=== PATIENT | male | born 1965 | race Two or more races ===

== ENCOUNTER 2017-02-13 20:07 | Emergency (ER) | payer OTHER ==
[2017-02-13 20:24] VITALS: BP 105/67; PULSE 92; TEMP 98; BMI 27.4
--- NOTE | 2017-02-13 20:38 | PDOC ---
History of Present Illness - General Chief Complaint: Wound Stated Complaint: WOUND Time Seen by Provider: 02/13/17 20:26 History Source: Patient Past History - Past Medical History Allergies/Adverse Reactions: Allergies Allergy/AdvReac Type Severity Reaction Status Date / Time No Known Allergies Allergy Verified 02/13/17 20:15 Home Medications: Ambulatory Orders Amoxicillin/Potassium Clav [Augmentin 875-125 Tablet] 1 each PO BID #14 tablet 02/13/17 Metformin HCl [Glucophage] 1,000 mg PO BID 02/13/17 Metoprolol Succinate [Toprol Xl] 75 mg PO DAILY 02/13/17 COPD: No Diabetes: Yes - Suicide/Smoking/Psychosocial Hx Smoking History: Never smoked Hx Alcohol Use: No Drug/Substance Use Hx: No Substance Use Type: None Review of Systems - Review of Systems Able to Perform ROS?: Yes Comments:: 02/13/17 20:53 CONSTITUTIONAL: Absent: fever, chills, diaphoresis, generalized weakness, malaise, loss of appetite MUSCULOSKELETAL: Absent: myalgia, arthralgia, joint swelling SKIN: Absent: rash, itching, pallor HEMATOLOGIC/IMMUNOLOGIC: Absent: easy bleeding, easy bruising, lymphadenopathy, frequent infections ENDOCRINE: Absent: unexplained weight gain, unexplained weight loss, heat intolerance, cold intolerance left great toe/amputation to distal mt Left 1st mt head pain denies any erythema/drainage Is the patient limited Kazakh proficient: No *Physical Exam - Vital Signs Last Vital Signs Temp Pulse Resp BP Pulse Ox 98.0 F 92 H 20 105/67 100 02/13/17 20:16 02/13/17 20:16 02/13/17 20:16 02/13/17 20:16 02/13/17 20:16 - Physical Exam Comments: 02/13/17 20:53 GENERAL: Well developed, well nourished. Awake and alert. No acute distress. HEENT: Normocephalic, atraumatic. PERRLA, EOMI. No conjunctival pallor. Sclera are non- icteric. Moist mucous membranes. Oropharynx is clear. NECK: Supple. Full ROM. No JVD. Carotid pulses 2+ and symmetric, without bruits. No thyromegaly. No lymphadenopathy. CARDIOVASCULAR: Regular rate and rhythm. No murmurs, rubs, or gallops. Distal pulses are 2+ and symmetric. PULMONARY: No evidence of respiratory distress. Lungs clear to auscultation bilaterally. No wheezing, rales or rhonchi. MUSCULOSKELETAL Normal range of motion at all joints. No bony deformities or tenderness. No CVA tenderness. EXTREMITIES: No cyanosis. No clubbing. No edema. No calf tenderness. SKIN: Warm and dry. Normal capillary refill. No rashes. No jaundice. Left foot amputated great toe to mt head plantar distal mt head 2mm circular opening to plantar mt head neg erythema slight pain on palp to skin neg drainage neg pain on palp to foot 2+ pedal pulse ED Treatment Course - LABORATORY CBC & Chemistry Diagram: 02/13/17 21:10 02/13/17 21:10 *DC/Admit/Observation/Transfer Diagnosis at time of Disposition: Cellulitis Qualifiers: Site of cellulitis: extremity Site of cellulitis of extremity: toe Laterality: left Qualified Code(s): L03.032 - Cellulitis of left toe - Discharge Dispostion Disposition: HOME Condition at time of disposition: Stable Admit: No - Prescriptions Prescriptions: Amoxicillin/Potassium Clav [Augmentin 875-125 Tablet] 1 each PO BID #14 tablet - Referrals Referrals: Quinten Rodney MD [Staff Physician] - - Patient Instructions Printed Discharge Instructions: DI for Cellulitis -- Adult Additional Instructions: Elevate Rx: Augmentin 875mg take 1 tablet by mouth twice a day Follow up with Infectious disease/Dr. Starks Return to the ER for severe/persistent/worsening symptoms Print Language: SETSWA[place] - Post Discharge Activity
--- NOTE | 2017-02-13 20:40 | PDOC ---
*Physical Exam - Vital Signs Last Vital Signs Temp Pulse Resp BP Pulse Ox 98.0 F 92 H 20 105/67 100 02/13/17 20:16 02/13/17 20:16 02/13/17 20:16 02/13/17 20:16 02/13/17 20:16 Medical Decision Making - Medical Decision Making 02/13/17 20:40 Pt seen by the Advanced Practice Provider under my direct supervision Ancillary studies reviewed I agree with plan as outlined by the Advanced Practice Provider ZOE Ellis
[2017-02-13 21:20] LABS: BASOPHIL 0.5 % (0-2.0); EOSINOPHIL 1.6 % (0-4.5); MCH 31.2 pg (25.7-33.7); MCHC 34.7 g/dl (32.0-35.9); MEAN CELL VOLUME 90.1 fl (80-96); MEAN PLT VOLUME 9.9 fl (7.5-11.1); NEUTROPHILS 61.5 % (42.8-82.8); PLATELET COUNT 168 K/MM3 (134-434); WHITE BLOOD COUNT 7.6 K/mm3 (4.0-10.0)
[2017-02-13 22:08] LABS: ANION GAP 7 (8-16); CALCIUM 8.2 mg/dL (8.5-10.1); CO2 24 mmol/L (21-32); CREATININE 0.9 mg/dL (0.7-1.3); GLUCOSE,RANDOM 170 mg/dL (74-106); SGOT/AST 19 U/L (15-37); SGPT/ALT 28 U/L (12-78)
[2017-02-13 22:10] LABS: ALK PHOS 156 U/L (45-117); BILIRUBIN,TOTAL 0.5 mg/dL (0.2-1.0); TOT PROT 7.6 g/dl (6.4-8.2)
[2017-02-13 22:21] LABS: C-REACTIVE PROTEIN < 0.3 MG/DL (0.00-0.3)
[2017-02-13 22:26] LABS: ERYTHROCYTE SEDIMENTATION RATE 17 mm/hr (0-20)
[2017-02-13] MEDS ORDERED: LEVOFLOXACIN 750 MG TABLET PO SCH (23:45)
[2017-02-13] MEDS ORDERED: AMOX TR/POT CLAV 875MG/125MG TABLETS (FP) PO ONE (23:49)
[2017-02-13] MEDS ORDERED: AMOX TR/POT CLAV 875MG/125MG TABLETS (FP) ONE (23:56)
[2017-02-13] MEDS ORDERED: LEVOFLOXACIN 250 MG TABLET (FP) ONE (23:57)
[2017-02-13] MEDS ORDERED: LEVOFLOXACIN 500 MG TABLET (FP) ONE (23:57)
--- NOTE | 2017-02-16 07:43 | PDOC ---
Patient Follow-up (Call Back) - Post ED Follow - Up Condition at time of discharge: Stable Disposition at time of original discharge: HOME Reason for Call Back: Abnwl. Microbiology (Wound cx showed on preliminary strep groub, non lactose fermenting GNB, and strep viridans. Pt was placed on Augmentin upon ED discharge. Will await final.)
== END 2017-02-14 | disposition home or self-care (01) ==
LOC: JER 20:07
DX: E11.9 Type 2 diabetes mellitus without complications (principal); L03.032 Cellulitis of left toe; Z89.412 Acquired absence of left great toe; Z79.4 Long term (current) use of insulin
CPT/HCPCS: 36415; 73630-TC-LT; 80053; 85025; 85651; 86140; 87070; 87186; 87205; 99282-25

== ENCOUNTER 2017-03-10 17:05 | Inpatient (IN) | payer OTHER ==
[2017-03-10 17:12] VITALS: BMI 29.7
--- NOTE | 2017-03-10 17:14 | PDOC ---
Rapid Medical Evaluation Chief Complaint: Wound Infection Medical Evaluation: Allergies Allergy/AdvReac Type Severity Reaction Status Date / Time No Known Allergies Allergy Verified 02/13/17 20:15 03/10/17 17:11 Pt seen and examed in triage. He ambulating in to waiting room He presents with c/o left foot pain/wound fo the past 4 days. He is a diabetic and with chronic wounds but now a new blister opened. Need to order the following -labs -blood cx -left foot xray -duplex -ekg -dispo for admission possible Discharge Disposition - Diagnosis Wound infection - Referrals - Patient Instructions - Post Discharge Activity
[2017-03-10 17:35] LABS: BASO % 0.9 % (0-2.0); MCH 31.5 pg (25.7-33.7); MCHC 34.9 g/dl (32.0-35.9); MEAN CELL VOLUME 90.3 fl (80-96); MEAN PLT VOLUME 9.8 fl (7.5-11.1); NEUT % 64.8 % (42.8-82.8); PLATELET COUNT 171 K/MM3 (134-434); RDW 13.6 % (11.9-15.9); WHITE BLOOD COUNT 5.3 K/mm3 (4.0-10.0)
[2017-03-10 17:51] LABS: INR 1.96 (0.82-1.09); PROTHROMBIN TIME (PATIENT) 22.1 SEC (9.98-11.88)
--- NOTE | 2017-03-10 17:54 | PDOC ---
History of Present Illness <Raiza Aquino - Last Filed: 03/10/17 21:47> - General History Source: Patient - History of Present Illness Initial Comments: 03/10/17 17:52 51yo man with NIDDM with multiple toe amputations who presents with 5 days of worsening L great toe blister. Denies pain, fever, chills, n/v. He was last here 02/13 for cellulitis and placed on Augmentin. Wound culture grew Serratia, Strep agalactiae, and strep viridans. <Juliana Gerber - Last Filed: 03/10/17 23:45> - General Chief Complaint: Wound Infection Stated Complaint: WOUND Time Seen by Provider: 03/10/17 17:31 Past History <Raiza Aquino - Last Filed: 03/10/17 21:47> - Past Medical History COPD: No Diabetes: Yes - Suicide/Smoking/Psychosocial Hx Smoking History: Never smoked Hx Alcohol Use: No Drug/Substance Use Hx: No Substance Use Type: None <Juliana Gerber - Last Filed: 03/10/17 23:45> - Past Medical History Allergies/Adverse Reactions: Allergies Allergy/AdvReac Type Severity Reaction Status Date / Time No Known Allergies Allergy Verified 03/10/17 17:12 Home Medications: Ambulatory Orders Metformin HCl [Glucophage] 1,000 mg PO BID 02/13/17 Metoprolol Succinate [Toprol Xl] 50 mg PO DAILY 03/10/17 Warfarin Sodium 1 mg PO DAILY 03/10/17 Warfarin Sodium 2 mg PO DAILY 03/10/17 *Physical Exam - Vital Signs Last Vital Signs Temp Pulse Resp BP Pulse Ox 98.1 F 89 16 108/70 98 03/10/17 20:59 03/10/17 20:59 03/10/17 20:59 03/10/17 20:59 03/10/17 20:59 <Raiza Aquino - Last Filed: 03/10/17 21:47> - Vital Signs Last Vital Signs Temp Pulse Resp BP Pulse Ox 97.9 F 107 H 20 112/70 100 03/10/17 17:08 03/10/17 17:08 03/10/17 17:08 03/10/17 17:08 03/10/17 17:08 - Physical Exam General Appearance: Yes: Nourished, Appropriately Dressed HEENT: positive: Normal ENT Inspection Neck: positive: Supple Respiratory/Chest: positive: Lungs Clear, Normal Breath Sounds Cardiovascular: positive: Regular Rhythm, Regular Rate, S1, S2 Vascular Pulses: Dorsalis-Pedis (R): 2+, Doralis-Pedis (L): 2+ Gastrointestinal/Abdominal: positive: Normal Bowel Sounds, Soft. negative: Tenderness Extremity: positive: Other (L great toe distal phalanx amputation with posterior pad ulcer, 3rd toe with circumferential ulcer, malodorous with mild tenderness, L 4th toe amputation; R 2nd toe amputation) Integumentary: positive: Normal Color Neurologic: positive: Fully Oriented, Alert <Juliana Gerber - Last Filed: 03/10/17 23:45> ED Treatment Course - LABORATORY CBC & Chemistry Diagram: 03/10/17 17:21 03/10/17 17:21 - ADDITIONAL ORDERS Additional order review: Laboratory Results 03/10/17 03/10/17 03/10/17 18:40 17:21 17:21 PT with INR 22.10 H INR 1.96 H Sodium 139 Potassium 4.2 Chloride 103 Carbon Dioxide 26 Anion Gap 10 BUN 17 D Creatinine 0.7 D Creat Clearance w eGFR > 60 Random Glucose 113 H D Calcium 9.2 Total Bilirubin 0.4 AST 17 ALT 25 Alkaline Phosphatase 158 H Total Protein 7.7 Albumin 4.1 Urine Color Cancelled Urine Appearance Cancelled Urine pH Cancelled Ur Specific [place] Cancelled Urine Protein Cancelled Urine Glucose (UA) Cancelled Urine Ketones Cancelled Urine Blood Cancelled Urine Nitrite Cancelled Urine Bilirubin Cancelled Urine Urobilinogen Cancelled Ur Leukocyte Esterase Cancelled 03/10/17 17:14 PT with INR INR Sodium Potassium Chloride Carbon Dioxide Anion Gap BUN Creatinine Creat Clearance w eGFR Random Glucose Calcium Total Bilirubin AST ALT Alkaline Phosphatase Total Protein Albumin Urine Color Ltyellow Urine Appearance Clear Urine pH 6.0 Ur Specific [place] 1.015 Urine Protein Negative Urine Glucose (UA) Negative Urine Ketones Negative Urine Blood Negative Urine Nitrite Negative Urine Bilirubin Negative Urine Urobilinogen Negative Ur Leukocyte Esterase 03/10/17 17:21 RBC 4.28 MCV 90.3 MCHC 34.9 RDW 13.6 MPV 9.8 Neutrophils % 64.8 Lymphocytes % 24.5 Monocytes % 7.8 Eosinophils % 2.0 Basophils % 0.9 <Raiza Aquino - Last Filed: 03/10/17 21:47> - LABORATORY CBC & Chemistry Diagram: 03/10/17 17:21 03/10/17 17:21 - ADDITIONAL ORDERS Additional order review: 03/10/17 17:21 RBC 4.28 MCV 90.3 MCHC 34.9 RDW 13.6 MPV 9.8 Neutrophils % 64.8 Lymphocytes % 24.5 Monocytes % 7.8 Eosinophils % 2.0 Basophils % 0.9 - RADIOLOGY Radiology Studies Ordered: Category Date Time Status FOOT-LEFT [RAD] Stat Radiology 03/10/17 17:51 Ordered <Juliana Gerber - Last Filed: 03/10/17 23:45> Medical Decision Making - Medical Decision Making 51yo man with NIDDM with 3 toe amputations who presents with malodorous ulcers on L great toe posterior pad and circumferential ulcer on L 3rd toe. Patient tachycardic on admission, however afebrile and without leukocytosis. Blood and would cultures are still pending. L foot XRAY is not reveal any soft tissue free air or gross signs of osteomyelitis, which is reassuring. Given history of amputations, will admission for observation to be evaluated by wound care/podiatry. <Juliana Gerber - Last Filed: 03/10/17 23:45> *DC/Admit/Observation/Transfer - Discharge Dispostion Admit: Yes <Raiza Aquino - Last Filed: 03/10/17 21:47> <Juliana Gerber - Last Filed: 03/10/17 23:45> Diagnosis at time of Disposition: Wound infection, Foot ulcer
[2017-03-10 18:02] LABS: ALBUMIN 4.1 g/dl (3.4-5.0); ALK PHOS 158 U/L (45-117); ANION GAP 10 (8-16); BILIRUBIN,TOTAL 0.4 mg/dL (0.2-1.0); CALCIUM 9.2 mg/dL (8.5-10.1); CO2 26 mmol/L (21-32); CREATININE 0.7 mg/dL (0.7-1.3); GLUCOSE,RANDOM 113 mg/dL (74-106); SGOT/AST 17 U/L (15-37); SGPT/ALT 25 U/L (12-78); TOT PROT 7.7 g/dl (6.4-8.2)
[2017-03-10 19:19] LABS: URINE APPEARANCE CLEAR; URINE BILIRUBIN NEGATIVE (NEGATIVE); URINE BLOOD NEGATIVE (NEGATIVE); URINE COLOR LTYELLOW; URINE GLUCOSE (UA) NEGATIVE (NEGATIVE); URINE KETONE NEGATIVE (NEGATIVE); URINE LEUK ESTERASE NEGATIVE (NEGATIVE); URINE NITRITE NEGATIVE (NEGATIVE); URINE PROTEIN NEGATIVE (NEGATIVE); URINE UROBILINOGEN NEGATIVE mg/dL (0.2-1.0)
[2017-03-10] MEDS ORDERED: CLINDAMYCIN 900 MG PREMIX IVPB 900 MG/50 ML BAG IVPB ONE (23:38)
--- NOTE | 2017-03-10 23:42 | PDOC ---
Attending Attestation - Resident Resident Name: Juliana Gerber - ED Attending Attestation I have performed the following: I have examined & evaluated the patient, The case was reviewed & discussed with the resident, I agree w/resident's findings & plan, Exceptions are as noted - HPI HPI: 51-year-old male diabetic here with complaints of a left foot ulcer. Patient has been seen in the past has prior amputations of the toes is followed by Dr. Tanmay Seals as well as the [facility] was seen yesterday and told to come in for an infected foot ulcer. Here today complaining of pain and swelling in the left foot has an ulcer on his left fourth toe as well as a great toe ulcer at the base of the great toe has noticed a foul order denies drainage no fever or chills does notice foot swelling and warmth 03/10/17 23:39 - Physicial Exam PE: 03/10/17 23:40 Awake alert no acute distress heart exam is normal no murmurs rubs or gallops. Lungs are clear bilaterally no wheezes no crackles. Abdomen is soft and nontender extremities are warm and well perfused left foot is noted for mild warmth and erythema to the level ankle. Noted prior toe amputations. Left great toe has a plantar surface blister with underlying exudate. The left fourth toe has a pink-based ulcer does have a foul odor. Erythema and warmth noted to the dorsum of the left foot no crepitus 2+ DP pulses - Medical Decision Making 03/10/17 23:42 51-year-old male with infected left foot ulcer and foot cellulitis with diabetes. Plan IV antibiotics x-ray to rule out osteomyelitis patient may require eval by prior infectious disease Dr. Reynolds,
--- NOTE | 2017-03-11 04:50 | HP ---
CHIEF COMPLAINT: blister on toe PCP: clinic in [facility] HISTORY OF PRESENT ILLNESS: This is a 51 year old male with a past medical history of DM who presented to the ED with a "blister" on his toe. He was seen in ED for a wound to his left 1st toe 1 month ago and treated with augmentin. He followed up with IDDr. Rodney as an outpatient. He is concerned that now he has a blister on his 3rd toe. He is concerned that these keep happening. He reports minimal pain to the site. Pt states he noted pus coming from it this morning. Denies other complaints. 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 Smoking: pt denies Alcohol: pt denies Drugs: pt denies Family History: mother in her 50s, unk cause, was in [place] father alive and well brother in his 40s, had DM denies any h/o cardiac disease in the family Allergies No Known Allergies Allergy (Verified 03/10/17 17:12) HOME MEDICATIONS: 3 Medication Instructions Recorded Metformin HCl [Glucophage] 1,000 mg PO BID 02/13/17 Metoprolol Succinate [Toprol Xl] 50 mg PO DAILY 03/10/17 Warfarin Sodium 1 mg PO DAILY 03/10/17 Warfarin Sodium 2 mg PO DAILY 03/10/17 REVIEW OF SYSTEMS CONSTITUTIONAL: Absent: fever, chills, diaphoresis, generalized weakness, malaise, loss of appetite, weight change HEENT: Absent: rhinorrhea, nasal congestion, throat pain, throat swelling, difficulty swallowing, mouth swelling, ear pain, eye pain, visual changes CARDIOVASCULAR: Absent: chest pain, syncope, palpitations, irregular heart rate, lightheadedness , peripheral edema RESPIRATORY: Absent: cough, shortness of breath, dyspnea with exertion, orthopnea, wheezing, stridor, hemoptysis GASTROINTESTINAL: Absent: abdominal pain, abdominal distension, nausea, vomiting, diarrhea, constipation, melena, hematochezia GENITOURINARY: Absent: dysuria, frequency, urgency, hesitancy, hematuria, flank pain, genital pain MUSCULOSKELETAL: Absent: myalgia, arthralgia, joint swelling, back pain, neck pain SKIN: wound to L 3rd toe Absent: rash, itching, pallor HEMATOLOGIC/IMMUNOLOGIC: Absent: easy bleeding, easy bruising, lymphadenopathy, frequent infections ENDOCRINE: Absent: unexplained weight gain, unexplained weight loss, heat intolerance, cold intolerance NEUROLOGIC: Absent: headache, focal weakness or paresthesias, dizziness, unsteady gait, seizure, mental status changes, bladder or bowel incontinence PSYCHIATRIC: Absent: anxiety, depression, suicidal or homicidal ideation, hallucinations. PHYSICAL EXAMINATION Vital Signs - 24 hr 3 03/10/17 03/10/17 03/10/17 17:08 20:59 22:25 Temperature 97.9 F 98.1 F Pulse Rate 107 H Pulse Rate [ 89 72 Apical] Respiratory 20 16 16 Rate Blood Pressure 112/70 Blood Pressure 108/70 120/70 [Right Arm] O2 Sat by Pulse 100 98 99 Oximetry (%) 3 03/11/17 03/11/17 00:35 01:35 Temperature 98.9 F Pulse Rate 78 Pulse Rate [ Apical] Respiratory 18 Rate Blood Pressure 125/75 Blood Pressure [Right Arm] O2 Sat by Pulse 99 Oximetry (%) GENERAL: Awake, alert, and fully oriented, in no acute distress. HEAD: Normal with no signs of trauma. EYES: Pupils equal, round and reactive to light, extraocular movements intact, sclera anicteric, conjunctiva clear. No lid lag. EARS, NOSE, THROAT: Ears normal, nares patent, oropharynx clear without exudates. Moist mucous membranes. NECK: Normal range of motion, supple without lymphadenopathy, JVD, or masses. LUNGS: Breath sounds equal, clear to auscultation bilaterally. No wheezes, and no crackles. No accessory muscle use. HEART: Regular rate and rhythm, normal S1 and S2 without murmur, rub or gallop. ABDOMEN: Soft, nontender, not distended, normoactive bowel sounds, no guarding, no rebound, no masses. No hepatomegaly or splenomegaly. MUSCULOSKELETAL: Normal range of motion at all joints. No bony deformities or tenderness. No CVA tenderness. UPPER EXTREMITIES: 2+ pulses, warm, well-perfused. No cyanosis. No clubbing. No peripheral edema. LOWER EXTREMITIES: 2+ pulses, warm, well-perfused. No calf tenderness. No peripheral edema. L 4th toe amputation site healed well, 1st toe with old blister, whitish discoloration to plantar aspect, no discharge, no redness. 3rd toe with ulceration to lateral aspect, wound bed beefy red, dry, no discharge, surrounding skin WNL. No erythema noted to foot. NEUROLOGICAL: Cranial nerves II-XII intact. Normal speech. Normal gait. PSYCHIATRIC: Cooperative. Good eye contact. Appropriate mood and affect. SKIN: Warm, dry, normal turgor, no rashes or lesions noted, normal capillary refill. Laboratory Results - last 24 hr 3 03/10/17 03/10/17 03/10/17 17:14 17:21 17:21 WBC 5.3 D RBC 4.28 Hgb 13.5 Hct 38.6 MCV 90.3 MCH 31.5 MCHC 34.9 RDW 13.6 Plt Count 171 MPV 9.8 Neutrophils % 64.8 Lymphocytes % 24.5 Monocytes % 7.8 Eosinophils % 2.0 Basophils % 0.9 PT with INR 22.10 H INR 1.96 H Sodium Potassium Chloride Carbon Dioxide Anion Gap BUN Creatinine Creat Clearance w eGFR Random Glucose Calcium Total Bilirubin AST ALT Alkaline Phosphatase Total Protein Albumin Urine Color Ltyellow Urine Appearance Clear Urine pH 6.0 Ur Specific [place] 1.015 Urine Protein Negative Urine Glucose (UA) Negative Urine Ketones Negative Urine Blood Negative Urine Nitrite Negative Urine Bilirubin Negative Urine Urobilinogen Negative Ur Leukocyte Esterase 3 03/10/17 03/10/17 17:21 18:40 WBC RBC Hgb Hct MCV MCH MCHC RDW Plt Count MPV Neutrophils % Lymphocytes % Monocytes % Eosinophils % Basophils % PT with INR INR Sodium 139 Potassium 4.2 Chloride 103 Carbon Dioxide 26 Anion Gap 10 BUN 17 D Creatinine 0.7 D Creat Clearance w eGFR > 60 Random Glucose 113 H D Calcium 9.2 Total Bilirubin 0.4 AST 17 ALT 25 Alkaline Phosphatase 158 H Total Protein 7.7 Albumin 4.1 Urine Color Cancelled Urine Appearance Cancelled Urine pH Cancelled Ur Specific [place] Cancelled Urine Protein Cancelled Urine Glucose (UA) Cancelled Urine Ketones Cancelled Urine Blood Cancelled Urine Nitrite Cancelled Urine Bilirubin Cancelled Urine Urobilinogen Cancelled Ur Leukocyte Esterase Cancelled Radiology Results X-ray of the left foot, 3 views. Amputation of the first distal phalanx and amputation of the fourth toe again noted. The alignment is satisfactory without gross evidence of focal bone destruction or periosteal elevation. No gross soft tissue swelling or air is identified. Note is made of a tiny plantar calcaneus spur. Vascular calcifications are present Impression: See discussion above. Site of diabetic ulcer is not seen. No gross bone destruction or periosteal elevation identified. No gross soft tissue air is seen. Correlate clinically to determine further evaluation. Reported By: Glory Riddle MD 03/10/17 1920 ASSESSMENT/PLAN: 51yM with PMH DM, HTN presented to the ED with left foot ulcer, diabetic. Diabetic foot ulcer - clindamycin given in ED - ID consult for further ABT choice. - podiatry consult HTN - cont home toprol - pt is on coumadin, unclear why. Pt states it is because he has "poor blood movement" rhythm regular on exam, ? PAF, will obtain ECG in am DVT PPX - chemoprophylaxis is deferred as anticipated LOS <48h FEN - pt tolerating po - BMP in am - diabetic / low sodium diet as tolerated Dispo: pt currently requires further observation for management of his emergent condition. Visit type - Emergency Visit Emergency Visit: Yes ED Registration Date: 03/10/17 Care time: The patient presented to the Emergency Department on the above date and was hospitalized for further evaluation of their emergent condition. - New Patient This patient is new to me today: Yes Date on this admission: 03/11/17 - Critical Care Critical Care patient: No
[2017-03-11 07:26] LABS: BASO % 0.4 % (0-2.0); EOS % 2.3 % (0-4.5); MCHC 34.4 g/dl (32.0-35.9); NEUT % 60.8 % (42.8-82.8); PLATELET COUNT 159 K/MM3 (134-434); RDW 13.7 % (11.9-15.9)
[2017-03-11 07:52] LABS: INR 2.02 (0.82-1.09); PROTHROMBIN TIME (PATIENT) 22.8 SEC (9.98-11.88)
[2017-03-11 07:54] LABS: ANION GAP 6 (8-16); CALCIUM 8.2 mg/dL (8.5-10.1); CO2 26 mmol/L (21-32); CREATININE 0.7 mg/dL (0.7-1.3); GLUCOSE,RANDOM 142 mg/dL (74-106); MAGNESIUM 1.2 mg/dL (1.8-2.4); PHOSPHOROUS 3.3 mg/dL (2.5-4.9)
[2017-03-11] MEDS ORDERED: MAGNESIUM SULF 50% (8.12 MEQ/2 ML-1 GM VIAL) IVPB ONE (08:45)
[2017-03-11] MEDS ORDERED: WARFARIN NA 1 MG TABLET (FP) PO SCH (10:00)
[2017-03-11] MEDS ORDERED: WARFARIN NA 2 MG TABLET (UD) PO SCH (10:00)
[2017-03-11] MEDS: METOPROLOL SUCCINATE 50 MG TAB.SR.24H (FP) PO SCH (10:45)
--- NOTE | 2017-03-11 12:36 | CONSULT ---
Consult - text type - Consultation Consultation Note: Podiatry Consult: 51 year old DM M, well known to me, presents with L great toe amputation stump ulcer x few weeks. Patient is s/p L great toe partial amputation and L 4th digit amputation for infections in [facility] in October and November. Denies F/V/N /C/SOB/CP. Afebrile, VSS. WILLIAM: L foot: palpable DP 1/4, non-palpable PT pulse, TG wnl. Plantar hallux stump diabetic ulcer with granular base, (+) superficial purulence, no fluctuance, no soft tissue crepitus, no ascending cellulitis, no signs of active infection. 3rd digit superficial ulcer, granular and stable. L foot XR: no evidence of osteomyelitis WBC: 5.0 Blood Cx: pending Wound Cx: pending Imp: 51 year old DM M with L plantar hallux stump DM ulcer 1. IV abx 2. ID consultation 3. Bactroban + DSD to L foot daily 4. Recommend MRI L foot to evaluate for residual osteomyelitis 5. With appropriate ofloading measures should be able to heal plantar hallux stump ulcer 6. Glycemic control 7. Recommend PVRs, ordered 8. Thanks for the courtesy of the consult. Jimmie Alvarado DPM
--- NOTE | 2017-03-11 15:25 | EKG ---
Test Reason : Blood Pressure : / mmHG Vent. Rate : 090 BPM Atrial Rate : 220 BPM P-R Int : 000 ms QRS Dur : 084 ms QT Int : 338 ms P-R-T Axes : 000 -19 -08 degrees QTc Int : 413 ms ATRIAL FIBRILLATION ABNORMAL ECG NO PREVIOUS ECGS AVAILABLE Confirmed by STEPHANIE FERREIRA MD ([id number]) on 03/11/2017 3:25:21 PM Referred By: Confirmed By:STEPHANIE FERREIRA MD
--- NOTE | 2017-03-11 15:41 | PN ---
Progress Note (short form) - Note Progress Note: Vascular Surgery Pt seen and examined. Left foot with hx of amputation of toe. Now has ulcer on second toe medially and laterally. Pt lost tip of great toe as well. Pt with palpable DP pulse. REcc MRI of left foot to rule out osteo. Needs good foot care , as per podiatry. With history of DM, and elevated HbA1c, pt is a candidate for HBO as outpt. Will follow Brennan fuentes DO
--- NOTE | 2017-03-11 18:07 | CON.ID ---
Consult Consult Specialty:: Infectious Disease - History of Present Illness History of Present Illness: 51 y.o. male with PMH of DM, Lt 1st toe partial amputation and Lt 4th toe amputation due to infection presenting with 1st toe stump ulcer for the past few weeks and purulent drainage noted for the past 4 days. Pt denies any fever/ chills, pain or swelling around the wound. Has no other specific complaints. - History Source History Provided By: Patient - Past Medical History Endocrine: Yes: Diabetes Mellitus - Past Surgical History Past Surgical History: Yes: Amputation (Lt 1st toe partial amputation, Lt 4th toe amputation) - Alcohol/Substance Use Hx Alcohol Use: No - Smoking History Smoking history: Never smoked Have you smoked in the past 12 months: No Home Medications - Allergies Allergies/Adverse Reactions: Allergies Allergy/AdvReac Type Severity Reaction Status Date / Time No Known Allergies Allergy Verified 03/10/17 17:12 - Home Medications Home Medications: Ambulatory Orders Metformin HCl [Glucophage] 1,000 mg PO BID 02/13/17 Metoprolol Succinate [Toprol Xl] 50 mg PO DAILY 03/10/17 Warfarin Sodium 1 mg PO DAILY 03/10/17 Warfarin Sodium 2 mg PO DAILY 03/10/17 Review of Systems - Review of Systems Constitutional: reports: No Symptoms HENT: reports: No Symptoms Neck: reports: No Symptoms Cardiovascular: reports: No Symptoms Respiratory: reports: No Symptoms Gastrointestinal: reports: No Symptoms Genitourinary: reports: No Symptoms Breasts: reports: No Symptoms Reported Musculoskeletal: reports: No Symptoms Integumentary: reports: Other (Lt 1st toe stump drainage) Neurological: reports: No Symptoms Endocrine: reports: No Symptoms Hematology/Lymphatic: reports: No Symptoms Psychiatric: reports: No Symptoms Physical Exam Vital Signs: Vital Signs Temperature 98.4 F 03/11/17 10:00 Pulse Rate 105 H 03/11/17 10:00 Respiratory Rate 18 03/11/17 10:00 Blood Pressure 106/68 03/11/17 10:00 O2 Sat by Pulse Oximetry (%) 99 03/11/17 01:35 Constitutional: Yes: No Distress, Calm HENT: Yes: Atraumatic Neck: Yes: Supple Cardiovascular: Yes: Regular Rate and Rhythm Respiratory: Yes: CTA Bilaterally Gastrointestinal: Yes: Normal Bowel Sounds, Soft Renal/: Yes: WNL Musculoskeletal: Yes: Other Extremities: Yes: Amputation (Lt 1st toe partial amp, stump without current purulence, no erythema/tenderness Lt 4th toe amp site healed Lt 3rd toe necrotic patch, no drainage/tenderness) Peripheral Pulses WNL: No (faint DP pulse on Lt) Integumentary: Yes: WNL Neurological: Yes: Alert Psychiatric: Yes: Alert Labs: CBC, BMP 03/11/17 06:30 03/11/17 06:30 Problem List - Problems (1) Foot ulcer Code(s): L97.509 - NON-PRESSURE CHRONIC ULCER OTH PRT UNSP FOOT W UNSP SEVERITY (2) Wound infection Code(s): T14.8XXA - OTHER INJURY OF UNSPECIFIED BODY REGION, INITIAL ENCOUNTER; L08.9 - LOCAL INFECTION OF THE SKIN AND SUBCUTANEOUS TISSUE, UNSP Assessment/Plan 51 y.o. male with DM, Lt 1st toe partial amputation and Lt 4th toe amputation presenting with c/o mild purulent drainage from Lt 1st toe stump site. No edema/ erythema/tenderness. Pt afebrile, without leukocytosis. - f/u wound culture isolate - order esr/crp - MRI - started empirically on Clindamycin Podiatry f/u will f/u
[2017-03-11] MEDS: CLINDAMYCIN 600MG PREMIX IVPB 600 MG/50 ML BAG IVPB SCH (19:34)
[2017-03-11] MEDS: WARFARIN NA 3 MG TABLET PO SCH (19:34)
[2017-03-11] MEDS ORDERED: INSULIN (NOVOLOG) ASPART 100 UNITS/ML 10ML VIAL ONE (21:31)
[2017-03-11] MEDS: INSULIN SLIDING SCALE (NOVOLOG) 1 VIAL SQ SCH (22:20)
[2017-03-12] MEDS: CLINDAMYCIN 600MG PREMIX IVPB 600 MG/50 ML BAG IVPB SCH ×3 (01:36→17:04)
[2017-03-12] MEDS: INSULIN SLIDING SCALE (NOVOLOG) 1 VIAL SQ SCH ×4 (06:16→22:26)
[2017-03-12] MEDS ORDERED: PT OWN MED DRAWER 7, Y5N ONE ×3 (06:45→18:51)
[2017-03-12 07:53] LABS: BASO % 0.6 % (0-2.0); EOS % 2.1 % (0-4.5); MCH 31.1 pg (25.7-33.7); MEAN CELL VOLUME 88.8 fl (80-96); MEAN PLT VOLUME 9.7 fl (7.5-11.1); NEUT % 59.3 % (42.8-82.8); PLATELET COUNT 155 K/MM3 (134-434); RDW 13.2 % (11.9-15.9); WHITE BLOOD COUNT 4.4 K/mm3 (4.0-10.0)
[2017-03-12 08:33] LABS: INR 2.06 (0.82-1.09); PROTHROMBIN TIME (PATIENT) 23.3 SEC (9.98-11.88)
[2017-03-12 08:52] LABS: ANION GAP 8 (8-16); CALCIUM 8.5 mg/dL (8.5-10.1); CO2 27 mmol/L (21-32); CREATININE 0.8 mg/dL (0.7-1.3); GLUCOSE,RANDOM 208 mg/dL (74-106)
[2017-03-12] MEDS: METOPROLOL SUCCINATE 50 MG TAB.SR.24H (FP) PO SCH (10:13)
[2017-03-12] MEDS ORDERED: INSULIN (NOVOLOG) ASPART 100 UNITS/ML 10ML VIAL ONE ×2 (11:25→18:52)
[2017-03-12] MEDS: MUPIROCIN 2% TOPICAL OINTMENT 22 GM TUBE TP SCH (11:28)
--- NOTE | 2017-03-12 12:07 | PN ---
Progress Note, Physician History of Present Illness: Pt remains stable. No new complaints. - Current Medication List Current Medications: Active Medications Clindamycin Phosphate (Cleocin 600 Mg Premix Ivpb -) 600 mg in 50 mls @ 100 mls /hr IVPB Q8H-IV [facility] Last Admin: 03/12/17 10:12 Dose: 100 mls/hr Insulin Aspart (Novolog Vial Sliding Scale -) 1 vial SQ ACHS [facility] PRN Reason: Protocol Last Admin: 03/12/17 11:27 Dose: 4 units Metoprolol Succinate (Toprol Xl -) 50 mg PO DAILY [facility] Last Admin: 03/12/17 10:13 Dose: 50 mg Mupirocin (Bactroban 2% Ointment -) 1 applic TP DAILY [facility] Last Admin: 03/12/17 11:28 Dose: 1 applic Warfarin Sodium (Coumadin -) 3 mg PO DAILY@1800 [facility] Last Admin: 03/11/17 19:34 Dose: 3 mg - Objective Vital Signs: Vital Signs Temperature 97.6 F 03/12/17 06:00 Pulse Rate 91 H 03/12/17 06:00 Respiratory Rate 18 03/12/17 06:00 Blood Pressure 112/70 03/12/17 06:00 O2 Sat by Pulse Oximetry (%) 99 03/11/17 18:00 Constitutional: Yes: No Distress, Calm Neck: Yes: Supple Cardiovascular: Yes: Regular Rate and Rhythm Respiratory: Yes: CTA Bilaterally Gastrointestinal: Yes: Normal Bowel Sounds, Soft Extremities: Yes: Amputation (Lt partial 1st toe - ulcer with no current drainage, Lt 4th toe amputation -site healed, 3rd toe necrotic patch, mild swelling of Lt forefoot but no erythema, warmth or tenderness) Neurological: Yes: Alert Labs: CBC, BMP 03/12/17 07:35 03/12/17 07:35 INR, PTT INR 2.06 (0.82-1.09) H 03/12/17 07:35 Microbiology 03/10/17 20:23 Ulcer Gram Stain - Final 03/10/17 20:23 Ulcer Wound Culture - Preliminary Staphylococcus Coagulase Neg Diphtheroid/Corynebacterium 03/10/17 17:21 Blood - Peripheral Venous Blood Culture - Preliminary NO GROWTH OBTAINED AFTER 24 HOURS, INCUBATION TO CONTINUE FOR 4 DAYS. 03/10/17 17:21 Blood - Peripheral Venous Blood Culture - Preliminary NO GROWTH OBTAINED AFTER 24 HOURS, INCUBATION TO CONTINUE FOR 4 DAYS. - ....Imaging MRI: Report Reviewed Problem List - Problems (1) Foot ulcer Code(s): L97.509 - NON-PRESSURE CHRONIC ULCER OTH PRT UNSP FOOT W UNSP SEVERITY (2) Wound infection Code(s): T14.8XXA - OTHER INJURY OF UNSPECIFIED BODY REGION, INITIAL ENCOUNTER; L08.9 - LOCAL INFECTION OF THE SKIN AND SUBCUTANEOUS TISSUE, UNSP Assessment/Plan 51 y.o. male with DM, Lt 1st toe partial amputation and Lt 4th toe amputation presenting with c/o mild purulent drainage from Lt 1st toe stump site. No edema/ erythema/tenderness. Pt afebrile, without leukocytosis. MRI results indicating bone marrow edema in 1st,2nd, 3rd toe suspicious for OM, with soft tissue swelling. - order esr/crp -cont. 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
--- NOTE | 2017-03-12 12:20 | PN ---
Physical Exam: SUBJECTIVE: Patient seen and examined at bedside. Voices no complaints. Denies pain in the left foot/toes. OBJECTIVE: Vital Signs Period Temp Pulse Resp BP Sys/Griffith Pulse Ox Last 24 Hr 96.4 F-98.1 F 90-97 18-18 111-122/70-75 99 GENERAL: The patient is awake, alert, and fully oriented, in no acute distress. LUNGS: CTA HEART: RRR, S1, S2 ABDOMEN: Soft, nontender, nondistended LEFT LOWER EXTREMITY: 1+ DP pulse; warm; great toe stump with granulated tissue , no erythema, no exudate; 3rd digit ulcer, no exudate NEUROLOGICAL: Cranial nerves II through XII grossly intact. Normal speech Laboratory Results - last 24 hr 03/11/17 03/11/17 03/11/17 12:21 17:13 21:12 WBC RBC Hgb Hct MCV MCH MCHC RDW Plt Count MPV Neutrophils % Lymphocytes % Monocytes % Eosinophils % Basophils % PT with INR INR Sodium Potassium Chloride Carbon Dioxide Anion Gap BUN Creatinine POC Glucometer 143 204 199 Random Glucose Calcium 03/12/17 03/12/17 03/12/17 06:14 07:35 07:35 WBC 4.4 RBC 4.59 Hgb 14.3 Hct 40.7 MCV 88.8 MCH 31.1 MCHC 35.0 RDW 13.2 Plt Count 155 MPV 9.7 Neutrophils % 59.3 Lymphocytes % 28.0 Monocytes % 10.0 Eosinophils % 2.1 Basophils % 0.6 PT with INR 23.30 H INR 2.06 H Sodium Potassium Chloride Carbon Dioxide Anion Gap BUN Creatinine POC Glucometer 199 Random Glucose Calcium 03/12/17 03/12/17 07:35 11:24 WBC RBC Hgb Hct MCV MCH MCHC RDW Plt Count MPV Neutrophils % Lymphocytes % Monocytes % Eosinophils % Basophils % PT with INR INR Sodium 137 Potassium 3.9 Chloride 102 Carbon Dioxide 27 Anion Gap 8 BUN 20 H D Creatinine 0.8 POC Glucometer 228 Random Glucose 208 H D Calcium 8.5 Active Medications Generic Name Dose Route Start Last Admin Trade Name Freq PRN Reason Stop Dose Admin Clindamycin Phosphate 600 mg in 50 mls @ 100 mls/hr 03/11/17 18:15 03/12/17 10:12 Cleocin 600 Mg Premix Ivpb - IVPB 100 mls/hr Q8H-IV [facility] Administration Insulin Aspart 1 vial 03/11/17 22:00 03/12/17 11:27 Novolog Vial Sliding Scale - SQ 4 units ACHS [facility] Administration Protocol Metoprolol Succinate 50 mg 03/11/17 10:00 03/12/17 10:13 Toprol Xl - PO 50 mg DAILY [facility] Administration Mupirocin 1 applic 03/12/17 10:00 03/12/17 11:28 Bactroban 2% Ointment - TP 1 applic DAILY [facility] Administration Warfarin Sodium 3 mg 03/11/17 18:00 03/11/17 19:34 Coumadin - PO 3 mg DAILY@1800 [facility] Administration ASSESSMENT/PLAN: 51 year old male with PMH significant for HTN, NIDDM, atrial fibrillation on warfarin, s/p multiple toe amputations, recent LLE cellulitis 02/13/17 treated with augmentin. Admitted for left great toe stump ulcer. Today's MRI shows osteomyelitis. 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 Today's MRI shows osteo of the left great toe and possible osteo of 2nd, 3rd, and 4th toes. Patient will need to undergo ampuation of the left great toe and IV antibiotic therapy. Prior to surgery he will require peripheral vascular studies to assess circulation in the LLE which will directly relate to post-operative healing. For these reasons , patient was converted to inpatient status. Full code. Visit type - Emergency Visit Emergency Visit: Yes ED Registration Date: 03/10/17 Care time: The patient presented to the Emergency Department on the above date and was hospitalized for further evaluation of their emergent condition. - New Patient This patient is new to me today: Yes Date on this admission: 03/12/17 - Critical Care Critical Care patient: No
[2017-03-12] MEDS: WARFARIN NA 3 MG TABLET PO SCH (17:04)
[2017-03-13] MEDS: CLINDAMYCIN 600MG PREMIX IVPB 600 MG/50 ML BAG IVPB SCH ×3 (02:46→17:32)
[2017-03-13] MEDS: INSULIN SLIDING SCALE (NOVOLOG) 1 VIAL SQ SCH ×4 (06:47→21:39)
[2017-03-13] MEDS ORDERED: INSULIN (NOVOLOG) ASPART 100 UNITS/ML 10ML VIAL ONE ×3 (08:04→21:19)
--- NOTE | 2017-03-13 08:08 | PN ---
Progress Note (short form) - Note Progress Note: Podiatry: Seen/evaluated at bedside, NAD. Denies F/V/N/C/SOB/CP. Afebrile, VSS. WILLIAM: L Foot: palpable DP pulse, TG wnl, CFT brisk to all toes. Hallux stump plantar ulcer with hyperkeratotic borders, (+) superficial purulence, no soft tissue crepitus, probes to bone, no fluctuance, no ascending cellulitis, no signs of active infection. WBC: 4.4 Wound Cx: staph coag negative, diphtheroid/corynebacterium MRI foot: (+) osteomyelitis residual proximal phalanx Imp: 51 year old DM M with L hallux stump ulcer, osteomyelitis 1. C/w IV abx per ID 2. Bactroban + DSD L foot 3. Discussed treatment options with patient, namely removing the remaining osteomyelitis with formal amputation vs. bone biopsy and treatment with nursing home IV abx. Patient would like to think about it for now. If he needs formal hallux amputation, needs to have INR reduced. 4. Will discuss with infectious disease. Will follow. Jimmie Alvarado DPM
[2017-03-13] MEDS: METOPROLOL SUCCINATE 50 MG TAB.SR.24H (FP) PO SCH (10:21)
[2017-03-13] MEDS: MUPIROCIN 2% TOPICAL OINTMENT 22 GM TUBE TP SCH (10:23)
--- NOTE | 2017-03-13 16:56 | PN ---
Progress Note, Physician History of Present Illness: Pt feels well. Denies fever,chills, or pain. Has no specific complaints. - Current Medication List Current Medications: Active Medications Clindamycin Phosphate (Cleocin 600 Mg Premix Ivpb -) 600 mg in 50 mls @ 100 mls /hr IVPB Q8H-IV [facility] Last Admin: 03/13/17 10:23 Dose: 100 mls/hr Insulin Aspart (Novolog Vial Sliding Scale -) 1 vial SQ ACHS [facility] PRN Reason: Protocol Last Admin: 03/13/17 12:35 Dose: 4 units Metoprolol Succinate (Toprol Xl -) 50 mg PO DAILY [facility] Last Admin: 03/13/17 10:21 Dose: Not Given Mupirocin (Bactroban 2% Ointment -) 1 applic TP DAILY [facility] Last Admin: 03/13/17 10:23 Dose: 1 applic Warfarin Sodium (Coumadin -) 3 mg PO DAILY@1800 [facility] Last Admin: 03/12/17 17:04 Dose: 3 mg - Objective Vital Signs: Vital Signs Temperature 97.6 F 03/13/17 14:25 Pulse Rate 103 H 03/13/17 14:25 Respiratory Rate 18 03/13/17 14:25 Blood Pressure 112/67 03/13/17 14:25 O2 Sat by Pulse Oximetry (%) 98 03/12/17 21:00 Constitutional: Yes: No Distress, Calm Cardiovascular: Yes: Regular Rate and Rhythm Respiratory: Yes: CTA Bilaterally Extremities: Yes: Amputation (1st toe partial amputation - no current drainage, dried) Labs: CBC, BMP 03/12/17 07:35 03/12/17 07:35 INR, PTT INR 2.06 (0.82-1.09) H 03/12/17 07:35 Problem List - Problems (1) Foot ulcer Code(s): L97.509 - NON-PRESSURE CHRONIC ULCER OTH PRT UNSP FOOT W UNSP SEVERITY (2) Wound infection Code(s): T14.8XXA - OTHER INJURY OF UNSPECIFIED BODY REGION, INITIAL ENCOUNTER; L08.9 - LOCAL INFECTION OF THE SKIN AND SUBCUTANEOUS TISSUE, UNSP Assessment/Plan 51 y.o. male with DM, Lt 1st toe partial amputation and Lt 4th toe amputation presenting with c/o mild purulent drainage from Lt 1st toe stump site. No edema/ erythema/tenderness. Pt afebrile, without leukocytosis. MRI results indicating bone marrow edema in 1st,2nd, 3rd toe suspicious for OM, with soft tissue swelling. -Lt 1st toe ulcer dry - d/c clindamycin at this time - discussed with patient, he appears to prefer further amputation of hallux instead of long course of antibiotics -Podiatry following
[2017-03-13 19:19] LABS: INR 1.77 (0.82-1.09)
[2017-03-13] MEDS: WARFARIN NA 3 MG TABLET PO SCH (19:35)
[2017-03-13] MEDS ORDERED: HEPARIN NA (PORCINE) 5,000 UNITS/ML 1ML VIAL IVPUSH PRN ×2 (20:19)
--- NOTE | 2017-03-13 20:21 | PN ---
Physical Exam: SUBJECTIVE: Patient seen and examined OBJECTIVE: Vital Signs Period Temp Pulse Resp BP Sys/Griffith Pulse Ox Last 24 Hr 97.2 F-97.6 F 88-103 18-20 105-120/67-78 98-98 GENERAL: The patient is awake, alert, and fully oriented, in no acute distress. HEAD: Normal with no signs of trauma. EYES: PERRL, extraocular movements intact, sclera anicteric, conjunctiva clear. No ptosis. ENT: Ears normal, nares patent, oropharynx clear without exudates, moist mucous membranes. NECK: Trachea midline, full range of motion, supple. LUNGS: Breath sounds equal, clear to auscultation bilaterally, no wheezes, no crackles, no accessory muscle use. HEART: Regular rate and rhythm, S1, S2 without murmur, rub or gallop. ABDOMEN: Soft, nontender, nondistended, normoactive bowel sounds, no guarding, no rebound, no hepatosplenomegaly, no masses. EXTREMITIES: 2+ pulses, warm, well-perfused, no edema. NEUROLOGICAL: Cranial nerves II through XII grossly intact. Normal speech, gait not observed. PSYCH: Normal mood, normal affect. SKIN: Warm, dry, normal turgor, no rashes or lesions noted Laboratory Results - last 24 hr 03/12/17 03/13/17 03/13/17 22:25 06:46 12:29 PT with INR INR POC Glucometer 191 170 218 03/13/17 03/13/17 17:15 17:34 PT with INR 20.00 H INR 1.77 H POC Glucometer 142 Active Medications Generic Name Dose Route Start Last Admin Trade Name Rubens PRN Reason Stop Dose Admin Heparin Sodium (Porcine) 1,000 unit 03/13/17 20:19 Heparin - IVPUSH PRN PRN Heparin Heparin Sodium (Porcine) 5,000 unit 03/13/17 20:19 Heparin - IVPUSH PRN PRN Heparin Heparin Sodium/Dextrose 25,000 units in 500 mls @ 20 mls/hr 03/13/17 20:30 Heparin Infusion - IVPB TITR [facility] Protocol 1,000 UNITS/HR Insulin Aspart 1 vial 03/11/17 22:00 03/13/17 17:34 Novolog Vial Sliding Scale - SQ Not Given ACHS [facility] Protocol Metoprolol Succinate 50 mg 03/11/17 10:00 03/13/17 10:21 Toprol Xl - PO Not Given DAILY [facility] Mupirocin 1 applic 03/12/17 10:00 03/13/17 10:23 Bactroban 2% Ointment - TP 1 applic DAILY [facility] Administration ASSESSMENT/PLAN: opts for surgery d/c coumadin start heparin drip
[2017-03-13] MEDS: HEPARIN INFUSION - 25,000 UNITS/500 ML INFUS.BAG IVPB SCH (21:39)
[2017-03-14] MEDS: INSULIN SLIDING SCALE (NOVOLOG) 1 VIAL SQ SCH ×4 (06:39→21:53)
--- NOTE | 2017-03-14 08:33 | PN ---
Physical Exam: SUBJECTIVE: Patient seen and examined OBJECTIVE: Vital Signs Period Temp Pulse Resp BP Sys/Griffith Pulse Ox Last 24 Hr 97 F-97.6 F 91-103 18-18 98-115/60-74 98-98 GENERAL: The patient is awake, alert, and fully oriented, in no acute distress. HEAD: Normal with no signs of trauma. EYES: PERRL, extraocular movements intact, sclera anicteric, conjunctiva clear. No ptosis. ENT: Ears normal, nares patent, oropharynx clear without exudates, moist mucous membranes. NECK: Trachea midline, full range of motion, supple. LUNGS: Breath sounds equal, clear to auscultation bilaterally, no wheezes, no crackles, no accessory muscle use. HEART: Regular rate and rhythm, S1, S2 without murmur, rub or gallop. ABDOMEN: Soft, nontender, nondistended, normoactive bowel sounds, no guarding, no rebound, no hepatosplenomegaly, no masses. EXTREMITIES: 2+ pulses, warm, well-perfused, no edema. NEUROLOGICAL: Cranial nerves II through XII grossly intact. Normal speech, gait not observed. PSYCH: Normal mood, normal affect. SKIN: Warm, dry, normal turgor, no rashes or lesions noted Laboratory Results - last 24 hr 03/13/17 03/13/17 03/13/17 12:29 17:15 17:34 PT with INR 20.00 H INR 1.77 H PTT ([facility]) POC Glucometer 218 142 03/13/17 03/14/17 03/14/17 21:09 03:20 06:01 PT with INR INR PTT (Actin FS) 61.4 H POC Glucometer 199 165 Active Medications Generic Name Dose Route Start Last Admin Trade Name Freq PRN Reason Stop Dose Admin Heparin Sodium (Porcine) 1,000 unit 03/13/17 20:19 Heparin - IVPUSH PRN PRN Heparin Heparin Sodium (Porcine) 5,000 unit 03/13/17 20:19 Heparin - IVPUSH PRN PRN Heparin Heparin Sodium/Dextrose 25,000 units in 500 mls @ 20 mls/hr 03/13/17 20:30 04:06 Heparin Infusion - IVPB 1,000 units/hr TITR [facility] 20 mls/hr Protocol Titration 1,000 UNITS/HR Insulin Aspart 1 vial 03/11/17 22:00 03/14/17 06:39 Novolog Vial Sliding Scale - SQ 2 units ACHS [facility] Administration Protocol Metoprolol Succinate 50 mg 03/11/17 10:00 03/13/17 10:21 Toprol Xl - PO Not Given DAILY [facility] Mupirocin 1 applic 03/12/17 10:00 03/13/17 10:23 Bactroban 2% Ointment - TP 1 applic DAILY [facility] Administration ASSESSMENT/PLAN:
[2017-03-14 08:41] LABS: INR 1.81 (0.82-1.09); PROTHROMBIN TIME (PATIENT) 20.5 SEC (9.98-11.88)
[2017-03-14] MEDS: MUPIROCIN 2% TOPICAL OINTMENT 22 GM TUBE TP SCH (09:51)
[2017-03-14] MEDS: METOPROLOL SUCCINATE 50 MG TAB.SR.24H (FP) PO SCH (09:52)
[2017-03-14] MEDS ORDERED: INSULIN (NOVOLOG) ASPART 100 UNITS/ML 10ML VIAL ONE ×2 (11:57→21:07)
--- NOTE | 2017-03-14 13:24 | PN ---
Progress Note (short form) - Note Progress Note: Podiatry: Seen/evaluated at bedside, NAD. Pain controlled, denies F/V/N/C/SOB/Cp. Afebrile, VSS. WILLIAM: L foot: plantar hallux stump diabetic ulcer with mixed fibrogranular base, hyperkeratotic borders, probes to bone, minimal purulence, no fluctuance, no ascending cellulitis, no signs of active infection. MRI L foot: (+) bone marrow edema residual stump of hallux Wound Cx: diphtheroid/staph coag negative Imp: 51 year old DM M with L hallux stump diabetic ulcer, residual osteomyelitis 1. IV abx held for planned procedure as per ID 2. Bactroban + DSD L foot 3. Again discussed treatment options at length with patient. He would prefer to have definitive procedure of hallux amputation to avoid termite treater helper IV abx therapy if possible. Will plan for hallux amputation tomorrow, if INR is stable. Plan for NPO at midnight tonight. 4. Will follow. Jimmie Alvarado DPM
[2017-03-14] MEDS: HEPARIN INFUSION - 25,000 UNITS/500 ML INFUS.BAG IVPB SCH (21:48)
[2017-03-15] MEDS: INSULIN SLIDING SCALE (NOVOLOG) 1 VIAL SQ SCH ×4 (06:03→22:49)
[2017-03-15] MEDS ORDERED: INSULIN (NOVOLOG) ASPART 100 UNITS/ML 10ML VIAL ONE (06:40)
[2017-03-15 07:00] LABS: MCH 31.2 pg (25.7-33.7); MCHC 34.6 g/dl (32.0-35.9); MEAN CELL VOLUME 90.2 fl (80-96); MEAN PLT VOLUME 9.7 fl (7.5-11.1); PLATELET COUNT 172 K/MM3 (134-434); RDW 13.6 % (11.9-15.9)
[2017-03-15] MEDS: METOPROLOL SUCCINATE 50 MG TAB.SR.24H (FP) PO SCH (09:27)
[2017-03-15 09:28] LABS: INR 1.53 (0.82-1.09); PROTHROMBIN TIME (PATIENT) 17.3 SEC (9.98-11.88)
[2017-03-15] MEDS: MUPIROCIN 2% TOPICAL OINTMENT 22 GM TUBE TP SCH (09:37)
--- NOTE | 2017-03-15 13:15 | PN ---
Physical Exam: SUBJECTIVE: Patient seen and examined at bedside. Resting comfortably, no complaints, waiting to go to OR. Heparin drip running. OBJECTIVE: Vital Signs Period Temp Pulse Resp BP Sys/Griffith Pulse Ox Last 24 Hr 97.7 F-98.4 F 81-99 18-20 94-124/59-82 98 GENERAL: The patient is awake, alert, and fully oriented, in no acute distress. LUNGS: Breath sounds equal, clear to auscultation bilaterally, no wheezes, no crackles, no accessory muscle use. HEART: Irregular, S1, S2 without murmur, rub or gallop. ABDOMEN: Soft, nontender, nondistended, normoactive bowel sounds, no guarding, no rebound GENERAL: The patient is awake, alert, and fully oriented, in no acute distress. LEFT LOWER EXTREMITY: 1+ DP pulse; warm; great toe stump with granulated tissue , no erythema, no exudate; 3rd digit ulcer, no exudate NEUROLOGICAL: Cranial nerves II through XII grossly intact. Normal speech Laboratory Results - last 24 hr 03/14/17 03/14/17 03/15/17 17:29 21:02 05:47 WBC RBC Hgb Hct MCV MCH MCHC RDW Plt Count MPV PT with INR INR PTT (Actin FS) POC Glucometer 158 230 184 03/15/17 03/15/17 03/15/17 06:45 06:45 06:45 WBC 6.0 D RBC 4.76 Hgb 14.9 Hct 42.9 MCV 90.2 MCH 31.2 MCHC 34.6 RDW 13.6 Plt Count 172 MPV 9.7 PT with INR 17.30 H INR 1.53 H PTT (Actin FS) 69.1 H POC Glucometer 03/15/17 11:25 WBC RBC Hgb Hct MCV MCH MCHC RDW Plt Count MPV PT with INR INR PTT (Actin FS) POC Glucometer 154 Active Medications Generic Name Dose Route Start Last Admin Trade Name Freq PRN Reason Stop Dose Admin Heparin Sodium (Porcine) 1,000 unit 03/13/17 20:19 Heparin - IVPUSH PRN PRN Heparin Heparin Sodium (Porcine) 5,000 unit 03/13/17 20:19 Heparin - IVPUSH PRN PRN Heparin Heparin Sodium/Dextrose 25,000 units in 500 mls @ 20 mls/hr 03/13/17 20:30 21:48 Heparin Infusion - IVPB 1,000 units/hr TITR [facility] 20 mls/hr Protocol Administration 1,000 UNITS/HR Insulin Aspart 1 vial 03/11/17 22:00 03/15/17 11:25 Novolog Vial Sliding Scale - SQ Not Given ACHS [facility] Protocol Metoprolol Succinate 50 mg 03/11/17 10:00 03/15/17 09:27 Toprol Xl - PO Not Given DAILY [facility] Mupirocin 1 applic 03/12/17 10:00 03/15/17 09:37 Bactroban 2% Ointment - TP 1 applic DAILY [facility] Administration ASSESSMENT/PLAN: 51 year old male with PMH significant for HTN, NIDDM, atrial fibrillation on warfarin, s/p multiple toe amputations, recent LLE cellulitis 02/13/17 treated with augmentin. Admitted for osteomyelitis Left plantar hallux stump diabetic ulcer Osteomyelitis --03/11 MRI: osteo of hallux; possible osteo 2nd, 3rd, 4th digits --to OR today for amputation NIDDM --Novolog sliding scale coverage Atrial fibrillation --rate well-controlled, continue Toprol XL --on heparin drip FEN Fluids: PO intake adequate Electrolytes: replete as indicated Nutrition: diabetic low sodium DVT prophylaxis: on heparin drip Physical therapy evaluation Dispo: continues to require inpatient care. Full code. Visit type - Emergency Visit Emergency Visit: Yes ED Registration Date: 03/12/17 Care time: The patient presented to the Emergency Department on the above date and was hospitalized for further evaluation of their emergent condition. - New Patient This patient is new to me today: No - Critical Care Critical Care patient: No
[2017-03-15] MEDS ORDERED: MIDAZOLAM HCL 2 MG/2 ML SINGLE DOSE VIAL ONE (13:59)
[2017-03-15] MEDS ORDERED: PROPOFOL 20 ML ONE (13:59)
[2017-03-15] MEDS ORDERED: LIDOCAINE HCL/PF 2% SDV 5ML VIAL ONE (13:59)
--- NOTE | 2017-03-15 14:04 | PN ---
Progress Note (short form) - Note Progress Note: Podiatry Pre-op: Risks, benefits, alternatives to sx discussed at length with patient in holding , using lye peel operator phone. All questions answered, informed consent obtained. Plan for L great toe amputation under MAC/Local. Jimmie Alvarado DPM
[2017-03-15] MEDS ORDERED: LIDOCAINE HCL 2% (20ML MULTI-DOSE VIAL) NR ONE (14:11)
[2017-03-15] MEDS ORDERED: LIDOCAINE HCL 2% (50ML VIAL) NR ONE (14:33)
[2017-03-15] MEDS ORDERED: PHENYLEPHRINE HCL 10 MG/1 ML SINGLE DOSE VIAL ONE (14:39)
[2017-03-15] MEDS ORDERED: ONDANSETRON 4 MG/2 ML VIAL IVPUSH PRN ×2 (15:35→15:54)
--- NOTE | 2017-03-15 15:36 | OP ---
Operative Note - Note: Operative Date: 03/15/17 Pre-Operative Diagnosis: L hallux osteomyelitis Operation: L hallux amputation, first metatarsal head resection Post-Operative Diagnosis: Same as Pre-op Surgeon: Cristi Alvarado Anesthesia: Local, MAC Specimens Removed: bone and soft tissue, left foot Estimated Blood Loss (mls): 30 Operative Report Dictated: Yes
[2017-03-15] MEDS ORDERED: oxyCODONE HCL 5 MG TABLET PO PRN (15:37)
[2017-03-15] MEDS ORDERED: LACTATED RINGERS SOLUTION 1,000 ML IV SCH ×2 (15:45→15:54)
[2017-03-15] MEDS ORDERED: HEPARIN NA (PORCINE) 5,000 UNITS/ML 1ML VIAL IVPUSH PRN ×4 (15:54)
[2017-03-15] MEDS: HEPARIN INFUSION - 25,000 UNITS/500 ML INFUS.BAG IVPB SCH (17:15)
--- NOTE | 2017-03-15 17:16 | PN ---
Progress Note, Physician History of Present Illness: Events noted. Pt is s/p Lt hallux/1st MT amputation. Currently denies pain. No specific complaints. - Current Medication List Current Medications: Active Medications Heparin Sodium (Porcine) (Heparin -) 1,000 unit IVPUSH PRN PRN PRN Reason: Heparin Heparin Sodium (Porcine) (Heparin -) 5,000 unit IVPUSH PRN PRN PRN Reason: Heparin Heparin Sodium/Dextrose (Heparin Infusion -) 25,000 units in 500 mls @ 20 mls/ hr IVPB TITR TOS[facility]IA; 1,000 UNITS/HR PRN Reason: Protocol Lactated Ringer's (Lactated Ringers Solution) 1,000 mls @ 125 mls/hr IV ASDIR [facility] Last Admin: 03/15/17 16:33 Dose: Not Given Insulin Aspart (Novolog Vial Sliding Scale -) 1 vial SQ ACHS [facility] PRN Reason: Protocol Last Admin: 03/15/17 16:40 Dose: Not Given Metoprolol Succinate (Toprol Xl -) 50 mg PO DAILY [facility] Mupirocin (Bactroban 2% Ointment -) 1 applic TP DAILY [facility] Ondansetron HCl (Zofran Injection) 4 mg IVPUSH Q6H PRN PRN Reason: NAUSEA AND/OR VOMITING Oxycodone HCl (Roxicodone -) 5 mg PO Q4H PRN PRN Reason: PAIN LEVEL 1-5 - Objective Vital Signs: Vital Signs Temperature 97.8 F 03/15/17 16:15 Pulse Rate 88 03/15/17 16:15 Respiratory Rate 16 03/15/17 16:15 Blood Pressure 91/61 03/15/17 16:15 O2 Sat by Pulse Oximetry (%) 100 03/15/17 16:15 Constitutional: Yes: No Distress, Calm Cardiovascular: Yes: Regular Rate and Rhythm Respiratory: Yes: CTA Bilaterally Gastrointestinal: Yes: Normal Bowel Sounds, Soft Wound/Incision: Yes: Dressing Dry and Intact (Lt foot) Labs: CBC, BMP 03/15/17 06:45 03/12/17 07:35 INR, PTT INR 1.53 (0.82-1.09) H 03/15/17 06:45 Problem List - Problems (1) Foot ulcer Code(s): L97.509 - NON-PRESSURE CHRONIC ULCER OTH PRT UNSP FOOT W UNSP SEVERITY (2) Wound infection Code(s): T14.8XXA - OTHER INJURY OF UNSPECIFIED BODY REGION, INITIAL ENCOUNTER; L08.9 - LOCAL INFECTION OF THE SKIN AND SUBCUTANEOUS TISSUE, UNSP Assessment/Plan 51 y.o. male with DM, Lt 1st toe partial amputation and Lt 4th toe amputation presenting with c/o mild purulent drainage from Lt 1st toe stump site. No edema/ erythema/tenderness. Pt afebrile, without leukocytosis. MRI results indicating bone marrow edema c/w OM - s/p Lt hallux amputation - monitor at this time - cont wound care -Podiatry following
[2017-03-16] MEDS: HEPARIN INFUSION - 25,000 UNITS/500 ML INFUS.BAG IVPB SCH ×2 (00:55→17:58)
[2017-03-16] MEDS: oxyCODONE HCL 5 MG TABLET PO PRN ×3 (04:14→14:59)
[2017-03-16] MEDS: INSULIN SLIDING SCALE (NOVOLOG) 1 VIAL SQ SCH ×4 (06:25→23:03)
[2017-03-16 07:32] LABS: MCH 31.1 pg (25.7-33.7); MCHC 34.7 g/dl (32.0-35.9); MEAN CELL VOLUME 89.6 fl (80-96); MEAN PLT VOLUME 9.3 fl (7.5-11.1); PLATELET COUNT 157 K/MM3 (134-434); RDW 13.3 % (11.9-15.9); WHITE BLOOD COUNT 9.2 K/mm3 (4.0-10.0)
--- NOTE | 2017-03-16 07:50 | OP ---
DATE OF OPERATION: 03/15/2017 PREOPERATIVE DIAGNOSIS: Left great toe osteomyelitis. POSTOPERATIVE DIAGNOSIS: Left great toe osteomyelitis. PROCEDURE: Left great toe amputation with 1st metatarsal head resection. SURGEON: Cristi Alvarado DPM ANESTHESIA: IV sedation with local. HEMOSTASIS: Surgical dissection. ESTIMATED BLOOD LOSS: 30 mL PATHOLOGY: Bone, left foot. COMPLICATIONS: None. DESCRIPTION OF PROCEDURE: Patient was brought to the operating room and placed on the operating table in the supine position. I elected to not use a tourniquet during the course of the procedure. Following the induction of IV sedation, local anesthesia was achieved utilizing 14 mL of 2% lidocaine plain. The left foot was then scrubbed, prepped and draped in the usual aseptic fashion. Attention was directed to the left great toe where a hallux amputation stump ulcer probing to bone was visualized and appreciated. I began by performing a 3-cm linear longitudinal incision over the dorsal 1st metatarsal shaft. The incision was continued in a tennis-racquet fashion to circumscribe the great toe stump. The incision was then carried down to bone using sharp dissection, taking care to retract vital neural and vascular structures. All bleeders were cauterized and ligated as appropriate. Next, the great toe was disarticulated at the level of the metatarsophalangeal joint. The hallux stump was then removed from the operative site and sent to Pathology for analysis. Next, a dorsal linear capsulotomy was performed over the 1st metatarsal. The periosteal structures were reflected medially and laterally to expose the metatarsal head. Next, a sagittal saw was used to resect the metatarsal head. This was removed and sent to Pathology for analysis. A second sliver of bone was removed proximally, and this was sent for both proximal bone pathology as well as bone culture. An appropriate soft tissue culture was obtained. Surgical site was copiously irrigated with sterile saline. The surgical site was packed with 1/4-inch Iodoform packing. The incision was then coapted and maintained utilizing 3-0 nylon in a simple interrupted suture fashion. Following the conclusion of the procedure, the surgical site was covered with Xeroform, and a sterile compressive dressing was applied to the left foot consisting of sterile gauze, Dinorah, Kerlix, and an Beny wrap. The patient tolerated the procedure well without complications. He was transferred from the operating room to the recovery unit with vital signs stable and neurovasculature intact to the left foot. MARGIE POPE/[id number] cc: [facility] Podiatry
[2017-03-16 08:04] LABS: ALBUMIN 3.7 g/dl (3.4-5.0); ALK PHOS 98 U/L (45-117); ANION GAP 6 (8-16); BILIRUBIN,TOTAL 0.6 mg/dL (0.2-1.0); CALCIUM 8.6 mg/dL (8.5-10.1); CO2 29 mmol/L (21-32); CREATININE 0.8 mg/dL (0.7-1.3); GLUCOSE,RANDOM 159 mg/dL (74-106); MAGNESIUM 1.6 mg/dL (1.8-2.4); SGOT/AST 18 U/L (15-37); SGPT/ALT 32 U/L (12-78); TOT PROT 7.2 g/dl (6.4-8.2)
[2017-03-16] MEDS: MUPIROCIN 2% TOPICAL OINTMENT 22 GM TUBE TP SCH (09:11)
[2017-03-16] MEDS ORDERED: METOPROLOL SUCCINATE 50 MG TAB.SR.24H (FP) PO SCH (10:00)
[2017-03-16] MEDS ORDERED: morphine SULFATE 4 MG/ML VIAL IVPUSH PRN (10:43)
--- NOTE | 2017-03-16 11:38 | PN ---
Progress Note (short form) - Note Progress Note: Podiatry: Seen/evaluated at bedside, NAD. Pain controlled with PO analgesics, denies F/V/ N/C/SOB/CP. S/p L great toe amputation, first metatarsal head resection POD#1. Afebrile, VSS. WILLIAM: L foot: pedal pulses palpable, TG wnl. Minimal bandage strikethrough, no active bleeding. Packing in place. Sutures well coapted, no dehiscence noted. No purulent drainage, no fluctuance, no periwound erythema, no ascending cellulitis, no signs of active infection. Minimal tenderness to palpation. WBC: 9.2 OR Cx: pending Imp: 51 year old DM M s/p L great toe amputation 1. C/w IV abx per ID 2. DSD L Foot 3. Partial WB L heel with surgical shoe 4. F/u OR cultures 5. Will follow Jimmie Alvarado DPM
--- NOTE | 2017-03-16 13:18 | PN ---
Progress Note (short form) - Note Progress Note: Anesthesia POD#1 S/P Left Great Toe amputation under MAC VSS,no N/V,no pain issues,doing well. Aida Durant MD.
[2017-03-16] MEDS ORDERED: morphine SULFATE 4 MG/ML VIAL IVPB PRN (14:04)
--- NOTE | 2017-03-16 14:06 | PN ---
Teaching Attending Note Name of Resident: Brett Herndon ATTENDING PHYSICIAN STATEMENT I saw and evaluated the patient. I reviewed the resident's note and discussed the case with the resident. I agree with the resident's findings and plan as documented. SUBJECTIVE:c/o pain to foot no relief with pain medications. denies Cp, SOB, fever, chils, N/v/C/D OBJECTIVE: Last Vital Signs Temp Pulse Resp BP Pulse Ox 98.6 F 80 18 90/47 100 03/16/17 06:00 03/16/17 09:00 03/16/17 09:00 03/16/17 09:00 03/15/17 21:00 General NAD CV S1 S2 RRR no murmur/rub/gallop Lungs CTA B/L no wheezing/rales/rhonchi Extremities L foot with minimal bleeding from surgical site. sutures in place. good pulse ASSESSMENT AND PLAN: 51 year old male with PMH significant for HTN, NIDDM, atrial fibrillation on warfarin, s/p multiple toe amputations, recent LLE cellulitis 02/13/17 treated with augmentin. Admitted for osteomyelitis 1. Left plantar hallux OM- confirmed on MRI. s/p L hallux resection. surgical site looks good. d/w podiatry about possible OM of 3rd and 4th digits. does not think they are infected and more reactive. will re-evaluate images with radiology. 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 ID onboard. not on abx at this time. will wait for BoneCx results. will place on morphine IVPB prn pain and transition to oral percocet. 2. Afib- rate controlled. on heparin ggt. can re-start coumadin today. 3. DM- controlled. hold oral agents. cont iss 4. Hypotension- asymptomatic. will hold betablocker for now. possible pain medication induced. monitor for now. may need IVF replacement 6. Hypomagnesemia- Mg 800mg 7. DVT ppx- hep ggt 8. d/c planning. will need PT assessment to evaluate if requires JEFFERY.
[2017-03-16] MEDS ORDERED: MAGNESIUM OXIDE 400 MG TABLET (FP) PO ONE (14:15)
--- NOTE | 2017-03-16 15:28 | PN ---
Physical Exam: SUBJECTIVE: Patient seen and examined at bedside. Patient states that he has some mild pain in his foot. Denies fever, chills, nausea, vomiting, diarrhea. Patient is tolerating diet. OBJECTIVE: Vital Signs Period Temp Pulse Resp BP Sys/Griffith Pulse Ox Last 24 Hr 97.5 F-99.4 F 80-117 16-22 90-118/47-70 100-100 GENERAL: The patient is awake, alert, and fully oriented, in no acute distress. LUNGS: Breath sounds equal, clear to auscultation bilaterally, no wheezes, no crackles, no accessory muscle use. HEART: Regular rate and rhythm, S1, S2 without murmur, rub or gallop. ABDOMEN: Soft, nontender, nondistended, normoactive bowel sounds, no guarding, no rebound, no hepatosplenomegaly, no masses. EXTREMITIES: 2+ pulses, warm, well-perfused, no edema. RLE has previous amputation of 3rd toe. LLE has new amputation of great toe. Wound well approximated, no purulent drainage. NEUROLOGICAL: Cranial nerves II through XII grossly intact. Normal speech, gait not observed. PSYCH: Normal mood, normal affect. SKIN: Warm, dry, normal turgor, no rashes or lesions noted Laboratory Results - last 24 hr 03/15/17 03/15/17 03/16/17 16:39 22:07 06:22 WBC RBC Hgb Hct MCV MCH MCHC RDW Plt Count MPV PTT (Actin FS) Sodium Potassium Chloride Carbon Dioxide Anion Gap BUN Creatinine Creat Clearance w eGFR POC Glucometer 117 143 154 Random Glucose Calcium Magnesium Total Bilirubin AST ALT Alkaline Phosphatase Total Protein Albumin 03/16/17 03/16/17 03/16/17 07:10 07:10 07:10 WBC 9.2 D RBC 4.59 Hgb 14.3 Hct 41.2 MCV 89.6 MCH 31.1 MCHC 34.7 RDW 13.3 Plt Count 157 MPV 9.3 PTT (Actin FS) 48.6 H Sodium 138 Potassium 4.1 Chloride 103 Carbon Dioxide 29 Anion Gap 6 L BUN 16 Creatinine 0.8 Creat Clearance w eGFR > 60 POC Glucometer Random Glucose 159 H D Calcium 8.6 Magnesium 1.6 L D Total Bilirubin 0.6 D AST 18 ALT 32 D Alkaline Phosphatase 98 D Total Protein 7.2 Albumin 3.7 03/16/17 11:33 WBC RBC Hgb Hct MCV MCH MCHC RDW Plt Count MPV PTT (Actin FS) Sodium Potassium Chloride Carbon Dioxide Anion Gap BUN Creatinine Creat Clearance w eGFR POC Glucometer 174 Random Glucose Calcium Magnesium Total Bilirubin AST ALT Alkaline Phosphatase Total Protein Albumin Active Medications Generic Name Dose Route Start Last Admin Trade Name Freq PRN Reason Stop Dose Admin Heparin Sodium (Porcine) 1,000 unit 03/15/17 15:54 03/16/17 11:24 Heparin - IVPUSH 1,000 unit PRN PRN Administration Heparin Heparin Sodium (Porcine) 5,000 unit 03/15/17 15:54 Heparin - IVPUSH PRN PRN Heparin Heparin Sodium/Dextrose 25,000 units in 500 mls @ 20 mls/hr 03/15/17 15:54 11:31 Heparin Infusion - IVPB 1,100 units/hr TITR TOS[facility]IA 22 mls/hr Protocol Titration 1,000 UNITS/HR Insulin Aspart 1 vial 03/15/17 16:30 03/16/17 11:34 Novolog Vial Sliding Scale - SQ 2 unit ACHS [facility] Administration Protocol Morphine Sulfate 2 mg 03/16/17 14:04 Morphine Sulfate IVPB Q4H PRN PAIN Mupirocin 1 applic 03/16/17 10:00 03/16/17 09:11 Bactroban 2% Ointment - TP Not Given DAILY [facility] Ondansetron HCl 4 mg 03/15/17 15:54 Zofran Injection IVPUSH Q6H PRN NAUSEA AND/OR VOMITING Oxycodone HCl 5 mg 03/15/17 15:54 03/16/17 14:59 Roxicodone - PO 5 mg Q4H PRN Administration PAIN LEVEL 1-5 Senna 2 tab 03/16/17 22:00 Senna - PO HS [facility] Warfarin Sodium 2 mg 03/16/17 18:00 Coumadin - PO DAILY@1800 [facility] ASSESSMENT/PLAN: 51 year old male with a past medical history of uncontrolled diabetes mellitus and hypertension is admitted to the hospital for the treatment of diabetic foot ulcer on the left great toe #Diabetic foot ulcer: patient is s/p amputation of L great toe by Dr. Alvarado , wound is well approximated and isn't draining any purulent fluid -can restart on coumadin 2mg today for atrial fibrillation -f/u with bone biopsy -walk with physical therapy -pain control with morphine, roxicodone -zofran for nausea -Physical therapy -appreciate Dr. Alvarado consultation #Atrial Fibrillation: controlled -patient can be restarted on home coumadin 2mg PO QD #Diabetes Mellitus: -Insulin sliding scale coverage -BGM #Hypertension -controlled #FEN Diabetic diet No standing fluids Replete lytes as necessary #Prophylaxis -Patient is back on coumadin 2mg #Disposition -Continue to monitor on med-surg, dispo planning for tomorrow Visit type - Emergency Visit Emergency Visit: No - New Patient This patient is new to me today: Yes Date on this admission: 03/16/17 - Critical Care Critical Care patient: No
--- NOTE | 2017-03-16 16:31 | PN ---
Progress Note, Physician History of Present Illness: Pt c/o pain, now on morphine. No other specific complaints. Tmax 99.4F. s/p Lt hallux amputation. - Current Medication List Current Medications: Active Medications Heparin Sodium (Porcine) (Heparin -) 1,000 unit IVPUSH PRN PRN PRN Reason: Heparin Last Admin: 03/16/17 11:24 Dose: 1,000 unit Heparin Sodium (Porcine) (Heparin -) 5,000 unit IVPUSH PRN PRN PRN Reason: Heparin Heparin Sodium/Dextrose (Heparin Infusion -) 25,000 units in 500 mls @ 20 mls/ hr IVPB TITR TOSHIA; 1,000 UNITS/HR PRN Reason: Protocol Last Titration: 03/16/17 11:31 Dose: 1,100 units/hr, 22 mls/hr Insulin Aspart (Novolog Vial Sliding Scale -) 1 vial SQ ACHS [facility] PRN Reason: Protocol Last Admin: 03/16/17 11:34 Dose: 2 unit Morphine Sulfate (Morphine Sulfate) 2 mg IVPB Q4H PRN PRN Reason: PAIN Mupirocin (Bactroban 2% Ointment -) 1 applic TP DAILY [facility] Last Admin: 03/16/17 09:11 Dose: Not Given Ondansetron HCl (Zofran Injection) 4 mg IVPUSH Q6H PRN PRN Reason: NAUSEA AND/OR VOMITING Oxycodone HCl (Roxicodone -) 5 mg PO Q4H PRN PRN Reason: PAIN LEVEL 1-5 Last Admin: 03/16/17 14:59 Dose: 5 mg Senna (Senna -) 2 tab PO HS [facility] Warfarin Sodium (Coumadin -) 3 mg PO DAILY@1800 TOS[facility]IA - Objective Vital Signs: Vital Signs Temperature 99.4 F 03/16/17 14:12 Pulse Rate 117 H 03/16/17 14:12 Respiratory Rate 22 03/16/17 14:12 Blood Pressure 103/62 03/16/17 14:12 O2 Sat by Pulse Oximetry (%) 100 03/15/17 21:00 Constitutional: Yes: No Distress, Calm Neck: Yes: Supple Cardiovascular: Yes: Regular Rate and Rhythm Respiratory: Yes: CTA Bilaterally Gastrointestinal: Yes: Normal Bowel Sounds, Soft Extremities: Yes: Amputation (Lt hallux amputation) Wound/Incision: Yes: Sutures Intact Neurological: Yes: Alert, Oriented Labs: CBC, BMP 03/16/17 07:10 03/16/17 07:10 INR, PTT INR 1.53 (0.82-1.09) H 03/15/17 06:45 Microbiology 03/10/17 17:21 Blood - Peripheral Venous Blood Culture - Final NO GROWTH AFTER 5 DAYS INCUBATION 03/10/17 17:21 Blood - Peripheral Venous Blood Culture - Final NO GROWTH AFTER 5 DAYS INCUBATION 03/10/17 20:23 Ulcer Gram Stain - Final 03/10/17 20:23 Ulcer Wound Culture - Final Staphylococcus Coagulase Neg Diphtheroid/Corynebacterium Bone Culture - pending Problem List - Problems (1) Foot ulcer Code(s): L97.509 - NON-PRESSURE CHRONIC ULCER OTH PRT UNSP FOOT W UNSP SEVERITY (2) Wound infection Code(s): T14.8XXA - OTHER INJURY OF UNSPECIFIED BODY REGION, INITIAL ENCOUNTER; L08.9 - LOCAL INFECTION OF THE SKIN AND SUBCUTANEOUS TISSUE, UNSP (3) Osteomyelitis of toe Code(s): M86.9 - OSTEOMYELITIS, UNSPECIFIED Assessment/Plan 51 y.o. male with DM, Lt 1st toe partial amputation and Lt 4th toe amputation presenting with c/o mild purulent drainage from Lt 1st toe stump site. No edema/ erythema/tenderness. Pt afebrile, without leukocytosis. MRI results indicating bone marrow edema c/w OM - s/p Lt hallux amputation - cont wound care - f/u bone culture results, monitor temps -Podiatry following
[2017-03-16] MEDS ORDERED: WARFARIN NA 2 MG TABLET (UD) PO SCH (18:00)
[2017-03-16 18:42] LABS: MCHC 34.5 g/dl (32.0-35.9); PLATELET COUNT 181 K/MM3 (134-434); RDW 13.5 % (11.9-15.9); WHITE BLOOD COUNT 12.6 K/mm3 (4.0-10.0)
[2017-03-16 19:12] LABS: INR 1.41 (0.82-1.09); PROTHROMBIN TIME (PATIENT) 15.9 SEC (9.98-11.88)
[2017-03-16 19:15] LABS: ACTIVATED PTT 50.5 SECONDS (26.9-34.4)
[2017-03-16] MEDS: WARFARIN NA 3 MG TABLET PO SCH (19:42)
[2017-03-16] MEDS ORDERED: INSULIN (NOVOLOG) ASPART 100 UNITS/ML 10ML VIAL ONE (21:39)
[2017-03-16] MEDS ORDERED: SENNOSIDES 8.6MG TABLET (FP) PO SCH (22:00)
[2017-03-17] MEDS: INSULIN SLIDING SCALE (NOVOLOG) 1 VIAL SQ SCH ×4 (07:18→21:37)
[2017-03-17 07:41] LABS: MCH 30.8 pg (25.7-33.7); MCHC 34.3 g/dl (32.0-35.9); MEAN CELL VOLUME 89.9 fl (80-96); MEAN PLT VOLUME 9.3 fl (7.5-11.1); PLATELET COUNT 143 K/MM3 (134-434); RDW 13.4 % (11.9-15.9); WHITE BLOOD COUNT 11.1 K/mm3 (4.0-10.0)
[2017-03-17 08:03] LABS: ANION GAP 8 (8-16); CALCIUM 7.9 mg/dL (8.5-10.1); CO2 26 mmol/L (21-32); GLUCOSE,RANDOM 186 mg/dL (74-106)
[2017-03-17] MEDS: oxyCODONE HCL 5 MG TABLET PO PRN ×2 (08:39→21:28)
[2017-03-17] MEDS ORDERED: dilTIAZem HCL 30 MG TABLET (FP) PO ONE (08:44)
[2017-03-17 09:05] LABS: INR 1.42 (0.82-1.09)
[2017-03-17] MEDS: MUPIROCIN 2% TOPICAL OINTMENT 22 GM TUBE TP SCH (09:26)
[2017-03-17 09:37] LABS: TROPONIN I < 0.02 ng/ml (0.00-0.05)
[2017-03-17] MEDS ORDERED: METOPROLOL TARTRATE 25 MG TABLET (FP) PO SCH (10:00)
--- NOTE | 2017-03-17 11:38 | EKG ---
Test Reason : Blood Pressure : / mmHG Vent. Rate : 128 BPM Atrial Rate : 468 BPM P-R Int : 000 ms QRS Dur : 082 ms QT Int : 282 ms P-R-T Axes : 000 -09 027 degrees QTc Int : 411 ms ATRIAL FIBRILLATION WITH RAPID VENTRICULAR RESPONSE NONSPECIFIC T WAVE ABNORMALITY ABNORMAL ECG WHEN COMPARED WITH ECG OF 11-MAR-2017 06:11, NONSPECIFIC T WAVE ABNORMALITY NOW EVIDENT IN LATERAL LEADS Confirmed by JUSTINO BECKER, MARISA ([id number]) on 03/17/2017 11:37:37 AM Referred By: PAULIE PIERRE Confirmed By:MARISA BADILLO MD
[2017-03-17] MEDS ORDERED: INSULIN (NOVOLOG) ASPART 100 UNITS/ML 10ML VIAL ONE (11:53)
--- NOTE | 2017-03-17 12:41 | PN ---
Progress Note, Physician History of Present Illness: Pt is alert. c/o some chest pain, in no acute distress. Mild temp elevations since amputation. Being transferred to telemetry. No other complaints. - Current Medication List Current Medications: Active Medications Heparin Sodium (Porcine) (Heparin -) 1,000 unit IVPUSH PRN PRN PRN Reason: Heparin Last Admin: 03/16/17 11:24 Dose: 1,000 unit Heparin Sodium (Porcine) (Heparin -) 5,000 unit IVPUSH PRN PRN PRN Reason: Heparin Heparin Sodium/Dextrose (Heparin Infusion -) 25,000 units in 500 mls @ 20 mls/ hr IVPB TITR TOSHIA; 1,000 UNITS/HR PRN Reason: Protocol Last Titration: 03/16/17 19:44 Dose: 1,100 units/hr, 22 mls/hr Insulin Aspart (Novolog Vial Sliding Scale -) 1 vial SQ ACHS [facility] PRN Reason: Protocol Last Admin: 03/17/17 11:57 Dose: 4 unit Metoprolol Tartrate (Lopressor -) 25 mg PO DAILY [facility] Last Admin: 03/17/17 09:25 Dose: 25 mg Morphine Sulfate (Morphine Sulfate) 2 mg IVPB Q4H PRN PRN Reason: PAIN Mupirocin (Bactroban 2% Ointment -) 1 applic TP DAILY [facility] Last Admin: 03/17/17 09:26 Dose: Not Given Ondansetron HCl (Zofran Injection) 4 mg IVPUSH Q6H PRN PRN Reason: NAUSEA AND/OR VOMITING Oxycodone HCl (Roxicodone -) 5 mg PO Q4H PRN PRN Reason: PAIN LEVEL 1-5 Last Admin: 03/17/17 08:39 Dose: 5 mg Senna (Senna -) 2 tab PO HS [facility] Last Admin: 03/16/17 22:57 Dose: 2 tab Warfarin Sodium (Coumadin -) 3 mg PO DAILY@1800 [facility] Last Admin: 03/16/17 19:42 Dose: 3 mg - Objective Vital Signs: Vital Signs Temperature 98.8 F 03/17/17 08:30 Pulse Rate 95 H 03/17/17 10:29 Respiratory Rate 20 03/17/17 10:29 Blood Pressure 106/62 03/17/17 10:29 O2 Sat by Pulse Oximetry (%) 98 03/17/17 09:00 Constitutional: Yes: No Distress, Calm Neck: Yes: Supple Cardiovascular: Yes: Tachycardia Respiratory: Yes: CTA Bilaterally Gastrointestinal: Yes: Normal Bowel Sounds, Soft Extremities: Yes: Amputation (Lt hallux) Wound/Incision: Yes: Dressing Dry and Intact Labs: CBC, BMP 03/17/17 07:15 03/17/17 07:15 INR, PTT INR 1.42 (0.82-1.09) H 03/17/17 07:15 Microbiology 03/15/17 16:30 Bone Tissue Culture - Preliminary Yeast Like Organism 03/15/17 16:30 Tissue-Other Tissue Culture - Preliminary Yeast Like Organism 03/10/17 17:21 Blood - Peripheral Venous Blood Culture - Final NO GROWTH AFTER 5 DAYS INCUBATION 03/10/17 17:21 Blood - Peripheral Venous Blood Culture - Final NO GROWTH AFTER 5 DAYS INCUBATION 03/10/17 20:23 Ulcer Gram Stain - Final 03/10/17 20:23 Ulcer Wound Culture - Final Staphylococcus Coagulase Neg Diphtheroid/Corynebacterium Problem List - Problems (1) Foot ulcer Code(s): L97.509 - NON-PRESSURE CHRONIC ULCER OTH PRT UNSP FOOT W UNSP SEVERITY (2) Wound infection Code(s): T14.8XXA - OTHER INJURY OF UNSPECIFIED BODY REGION, INITIAL ENCOUNTER; L08.9 - LOCAL INFECTION OF THE SKIN AND SUBCUTANEOUS TISSUE, UNSP (3) Osteomyelitis of toe Code(s): M86.9 - OSTEOMYELITIS, UNSPECIFIED Assessment/Plan 51 y.o. male with DM, Lt 1st toe partial amputation and Lt 4th toe amputation presenting with c/o mild purulent drainage from Lt 1st toe stump site. No edema/ erythema/tenderness. Pt afebrile, without leukocytosis. MRI results indicating bone marrow edema c/w OM - s/p Lt hallux amputation - mild temp elevations - cont wound care -Bone cultures so far show rare amt of yeast -Podiatry following - continue monitor off antibiotics at this time, will closely monitor temp trend and wbc ct
--- NOTE | 2017-03-17 13:22 | PN ---
Teaching Attending Note Name of Resident: Brett Herndon ATTENDING PHYSICIAN STATEMENT I saw and evaluated the patient. I reviewed the resident's note and discussed the case with the resident. I agree with the resident's findings and plan as documented. SUBJECTIVE:currently asymptomatic. states he had dizzyness yesterday when getting out of bed to the go to the bathroom. this morning he woke up with dizzyness and palpitations. currently has no symptoms. denies fever, chills, cough, N/V/C/D, blurred vision or LOC OBJECTIVE: Last Vital Signs Temp Pulse Resp BP Pulse Ox 98.8 F 100 H 20 101/59 98 03/17/17 08:30 03/17/17 13:00 03/17/17 13:00 03/17/17 13:00 03/17/17 09:00 General NAD CV S1 S2 irregular no murmur/rub/gallop Lungs CTA B/L no wheezing/rales/rhonchi ASSESSMENT AND PLAN: 51 year old male with PMH significant for HTN, NIDDM, atrial fibrillation on warfarin, s/p multiple toe amputations, recent LLE cellulitis 02/13/17 treated with augmentin. Admitted for osteomyelitis 1. Left plantar hallux OM- confirmed on MRI. s/p L hallux resection 03/15. off abx. awaiting bone cx report to determine if abx are necessary. believe other digits are reactive and not OM, as per podiatry. cont pain control. 2. Afib with RVR-episode of RVR this AM. HR 128. re-started home dose of lopressor 25mg with good response. most likely due to medications being held due to hypotension yesterday. [facility]. started coumadin yesterday. cont coumadin-heparin bridge. 3. DM- controlled. hold oral agents. cont iss 4. Hypotension- resolved. 6. Hypomagnesemia- resolved 7. DVT ppx- hep ggt-coumadin bridge 8. PT assessment to evaluate if requires JEFFERY on discharge
--- NOTE | 2017-03-17 13:27 | PN ---
Physical Exam: SUBJECTIVE: Patient seen and examined at bedside. Patient is found to have a heart rate of 110 and states that he has some mild midsternal, nonradiating chest pain and palpitations. States that the pain in his L foot has decreased but still present. OBJECTIVE: Vital Signs Period Temp Pulse Resp BP Sys/Griffith Pulse Ox Last 24 Hr 98.6 F-99.6 F 95-118 18-22 94-116/59-69 96-98 GENERAL: The patient is awake, alert, and fully oriented, in no acute distress. LUNGS: Breath sounds equal, clear to auscultation bilaterally, no wheezes, no crackles, no accessory muscle use. HEART: tachycardic, irregular rhythm, S1, S2 without murmur, rub or gallop. ABDOMEN: Soft, nontender, nondistended, normoactive bowel sounds, no guarding, no rebound, no hepatosplenomegaly, no masses. EXTREMITIES: 2+ pulses, warm, well-perfused, no edema. RLE has previous amputation of 3rd toe. LLE has amputation of great toe. Wound well approximated , no purulent drainage. NEUROLOGICAL: Cranial nerves II through XII grossly intact. Normal speech, gait not observed. PSYCH: Normal mood, normal affect. SKIN: Warm, dry, normal turgor, no rashes or lesions noted Laboratory Results - last 24 hr 03/16/17 03/16/17 03/16/17 17:21 18:00 18:00 WBC 12.6 H D RBC 4.41 Hgb 13.7 Hct 39.7 MCV 90.0 MCH 31.0 MCHC 34.5 RDW 13.5 Plt Count 181 MPV 10.0 PT with INR 15.90 H INR 1.41 H PTT (Actin FS) 50.5 H Sodium Potassium Chloride Carbon Dioxide Anion Gap BUN Creatinine POC Glucometer 153 Random Glucose Calcium Troponin I 03/16/17 03/17/17 03/17/17 23:00 07:15 07:15 WBC 11.1 H RBC 4.42 Hgb 13.6 Hct 39.8 MCV 89.9 MCH 30.8 MCHC 34.3 RDW 13.4 Plt Count 143 D MPV 9.3 PT with INR INR PTT (Actin FS) 59.4 H Sodium Potassium Chloride Carbon Dioxide Anion Gap BUN Creatinine POC Glucometer 174 Random Glucose Calcium Troponin I 03/17/17 03/17/17 03/17/17 07:15 07:15 07:15 WBC RBC Hgb Hct MCV MCH MCHC RDW Plt Count MPV PT with INR 16.00 H INR 1.42 H PTT (Actin FS) Sodium 135 L Potassium 3.7 Chloride 101 Carbon Dioxide 26 Anion Gap 8 BUN 17 Creatinine 1.0 D POC Glucometer Random Glucose 186 H Calcium 7.9 L Troponin I < 0.02 Cancelled 03/17/17 03/17/17 07:17 11:26 WBC RBC Hgb Hct MCV MCH MCHC RDW Plt Count MPV PT with INR INR PTT (Actin FS) Sodium Potassium Chloride Carbon Dioxide Anion Gap BUN Creatinine POC Glucometer 175 208 Random Glucose Calcium Troponin I Active Medications Generic Name Dose Route Start Last Admin Trade Name Freq PRN Reason Stop Dose Admin Heparin Sodium (Porcine) 1,000 unit 03/15/17 15:54 03/16/17 11:24 Heparin - IVPUSH 1,000 unit PRN PRN Administration Heparin Heparin Sodium (Porcine) 5,000 unit 03/15/17 15:54 Heparin - IVPUSH PRN PRN Heparin Heparin Sodium/Dextrose 25,000 units in 500 mls @ 20 mls/hr 03/15/17 15:54 19:44 Heparin Infusion - IVPB 1,100 units/hr TITR TOSHIA 22 mls/hr Protocol Titration 1,000 UNITS/HR Insulin Aspart 1 vial 03/15/17 16:30 03/17/17 11:57 Novolog Vial Sliding Scale - SQ 4 unit ACHS TOSHIA Administration Protocol Metoprolol Tartrate 25 mg 03/17/17 10:00 03/17/17 09:25 Lopressor - PO 25 mg DAILY TOSHIA Administration Morphine Sulfate 2 mg 03/16/17 14:04 Morphine Sulfate IVPB Q4H PRN PAIN Mupirocin 1 applic 03/16/17 10:00 03/17/17 09:26 Bactroban 2% Ointment - TP Not Given DAILY TOSHIA Ondansetron HCl 4 mg 03/15/17 15:54 Zofran Injection IVPUSH Q6H PRN NAUSEA AND/OR VOMITING Oxycodone HCl 5 mg 03/15/17 15:54 03/17/17 08:39 Roxicodone - PO 5 mg Q4H PRN Administration PAIN LEVEL 1-5 Senna 2 tab 03/16/17 22:00 03/16/17 22:57 Senna - PO 2 tab HS TOSHIA Administration Warfarin Sodium 3 mg 03/16/17 18:00 03/16/17 19:42 Coumadin - PO 3 mg DAILY@1800 TOSHIA Administration ASSESSMENT/PLAN: 51 year old male with a past medical history of uncontrolled diabetes mellitus and hypertension is admitted to the hospital for the treatment of diabetic foot ulcer on the left great toe #Diabetic foot ulcer: patient is s/p amputation of L great toe by Dr. Alvarado , wound is well approximated and isn't draining any purulent fluid -f/u with bone biopsy, growing yeast currently -walk with physical therapy -pain control with morphine, roxicodone -zofran for nausea -Physical therapy -appreciate Dr. Alvarado consultation -ID consult appreciated; watch off antibiotics for now #Atrial Fibrillation: went into rapid Afib with RVR today, controlled now -EKG shows Afib w/ RVR at 128 -give home metoprolol 25mg -continue coumadin 2mg today for atrial fibrillation -continue heparin bridge -monitor INR today - 1.42 today #Diabetes Mellitus: -Insulin sliding scale coverage -BGM #Hypertension -give metoprolol 25mg PO QD #FEN Diabetic diet No standing fluids Replete lytes as necessary #Prophylaxis -Patient is back on coumadin 2mg -heparin bridge #Disposition -Continue to monitor on med-surg, dispo planning for tomorrow Visit type - Emergency Visit Emergency Visit: No - New Patient This patient is new to me today: No - Critical Care Critical Care patient: No
[2017-03-17] MEDS ORDERED: VANCOMYCIN 1,000 MG in DEXTROSE 5%-WATER - 250 ML IVPB SCH (14:15)
--- NOTE | 2017-03-17 15:53 | CON.CARD ---
Consult Consult Specialty:: cardiology Referred by:: Bhargav Temple Reason for Consultation:: Atrial fibrillation, chest pain - History of Present Illness Chief Complaint: Palpitations and chest discomfort History of Present Illness: The patient is a 51-year-old man, with a history of diabetes, hypertension, peripheral vascular disease, status post several toe amputations, chronic atrial fibrillation on Coumadin, admitted with left lower extremity osteomyelitis, status post left hallux resection, is being consulted for chest discomfort, palpitations and rapid heart rate. The patient seems fairly comfortable. He is supine in no apparent distress. - History Source History Provided By: Patient, Medical Record Limitations to Obtaining History: No Limitations - Past Medical History Cardio/Vascular: Yes: AFIB, HTN Infectious Disease: Yes: Other (osteomyelitis) Endocrine: Yes: Diabetes Mellitus - Past Surgical History Past Surgical History: Yes: Amputation (Lt 1st toe partial amputation, Lt 4th toe amputation) - Alcohol/Substance Use Hx Alcohol Use: No - Smoking History Smoking history: Never smoked Have you smoked in the past 12 months: No Home Medications - Allergies Allergies/Adverse Reactions: Allergies Allergy/AdvReac Type Severity Reaction Status Date / Time No Known Allergies Allergy Verified 03/10/17 17:12 - Home Medications Home Medications: Ambulatory Orders Metformin HCl [Glucophage] 1,000 mg PO BID 02/13/17 Metoprolol Succinate [Toprol Xl] 50 mg PO DAILY 03/10/17 Warfarin Sodium 1 mg PO DAILY 03/10/17 Warfarin Sodium 2 mg PO DAILY 03/10/17 Review of Systems - Review of Systems Constitutional: reports: No Symptoms Eyes: reports: No Symptoms HENT: reports: No Symptoms Neck: reports: No Symptoms Cardiovascular: reports: Chest Pain, Palpitations Respiratory: reports: No Symptoms Gastrointestinal: reports: No Symptoms Genitourinary: reports: No Symptoms Breasts: reports: No Symptoms Reported Musculoskeletal: reports: Extremity Pain Integumentary: reports: No Symptoms Neurological: reports: No Symptoms Endocrine: reports: No Symptoms Hematology/Lymphatic: reports: No Symptoms Psychiatric: reports: No Symptoms Vital Signs: Vital Signs Temperature 99.1 F 03/17/17 15:23 Pulse Rate 111 H 03/17/17 15:23 Respiratory Rate 20 03/17/17 15:23 Blood Pressure 101/59 03/17/17 13:00 O2 Sat by Pulse Oximetry (%) 98 03/17/17 09:00 Constitutional: Yes: Well Nourished, No Distress, Calm Eyes: Yes: WNL, Conjunctiva Clear, EOM Intact HENT: Yes: WNL, Atraumatic, Normocephalic Neck: Yes: WNL, Supple, Trachea Midline Respiratory: Yes: WNL, Regular, CTA Bilaterally Gastrointestinal: Yes: WNL, Normal Bowel Sounds, Soft Renal/: Yes: WNL Cardiovascular: Yes: WNL, Tachycardia, Pulse Irregular JVD: No Carotid Bruit: No Heart Sounds: Yes: S1, S2 Murmur: Yes: Systolic Murmur, Grade 2 Musculoskeletal: Yes: Other (Bilateral lower extremity toe amputations) Extremities: Yes: Other (Multiple bilateral total amputations) Edema: No Peripheral Pulses: 1+ Left Carotid, 1+ Right Carotid, 1+ Left Femoral, 1+ Right Femoral, 1+ Left Popliteal, 1+ Right Popliteal, 1+ Left Doralis Pedis, 1+ Right Dorsalis Pedis Integumentary: Yes: WNL Neurological: Yes: WNL ...Motor Strength: WNL Psychiatric: Yes: WNL - Other Data Labs, Other Data: CBC, BMP 03/17/17 07:15 03/17/17 07:15 INR, PTT INR 1.42 (0.82-1.09) H 03/17/17 07:15 Troponin, BNP 03/17/17 03/17/17 07:15 07:15 Troponin I < 0.02 Cancelled Troponin, BNP 03/17/17 03/17/17 07:15 07:15 Troponin I < 0.02 Cancelled Assessment/Plan 51-year-old man status post left hallux resection for osteomyelitis, with diabetes hypertension peripheral vascular disease chronic atrial fibrillation on Coumadin. The patient reports vague chest pains. Symptoms are partially reproducible. Ventricular rates are slightly rapid in atrial fibrillation. Please transferred to telemetry for rate control. Continue current medications for the time being. Please achieve good pain control. Acceptable ventricular rates in atrial fibrillation up to 115 bpm, in this setting. Continue heparin for the time being. Target PTT 6070. Consider substituting Coumadin for a NOAC Srikanth such as Xarelto 20 mg. Please give Lasix 40 mg IV, once, now. Obtain a chest x-ray. The patient is fairly stable. I will follow with you.
[2017-03-17] MEDS: HEPARIN INFUSION - 25,000 UNITS/500 ML INFUS.BAG IVPB SCH (16:15)
[2017-03-17] MEDS ORDERED: FUROSEMIDE 40 MG/4 ML INJECTABLE VIAL IVPUSH ONE (16:48)
[2017-03-17] MEDS: WARFARIN NA 3 MG TABLET PO SCH (17:40)
[2017-03-17] MEDS ORDERED: ONDANSETRON 4 MG/2 ML VIAL IVPUSH PRN (18:43)
[2017-03-17] MEDS ORDERED: HEPARIN NA (PORCINE) 5,000 UNITS/ML 1ML VIAL IVPUSH PRN ×4 (18:43)
[2017-03-17] MEDS ORDERED: morphine SULFATE 4 MG/ML VIAL IVPB PRN (18:43)
[2017-03-17] MEDS: METOPROLOL SUCCINATE 50 MG TAB.SR.24H (FP) PO SCH (21:29)
[2017-03-17] MEDS: SENNOSIDES 8.6MG TABLET (FP) PO SCH (21:29)
[2017-03-17] MEDS ORDERED: METOPROLOL SUCCINATE 50 MG TAB.SR.24H (FP) PO SCH (22:00)
[2017-03-18] MEDS ORDERED: PT OWN MED DRAWER 7, Y5N ONE ×3 (01:18→14:02)
[2017-03-18] MEDS: VANCOMYCIN 1,000 MG in DEXTROSE 5%-WATER - 250 ML IVPB SCH ×2 (01:43→14:03)
[2017-03-18] MEDS ORDERED: PANTOPRAZOLE 40 MG TABLET (FP) PO ONE (03:26)
--- NOTE | 2017-03-18 03:32 | HOSP ---
Physical Examination Vital Signs: Vital Signs Temperature 99.0 F 03/17/17 21:00 Pulse Rate 101 H 03/18/17 03:17 Respiratory Rate 18 03/18/17 03:17 Blood Pressure 97/67 03/18/17 03:17 O2 Sat by Pulse Oximetry (%) 98 03/17/17 21:00 Labs: CBC, BMP 03/17/17 07:15 03/17/17 07:15 Hospitalist Encounter Assessment: Paged by RN. RN states patient is still having chest pain. Upon speaking to the patient, he states he has constant epigastric, burning pain. The pain is nonradiating, reproducible, and has not changed from prior. Patient denies nausea, vomiting, diaphoresis, numbness/tingling. Exam: General: patient laying in bed, NAD, A&Ox3 Heart: S1, S2, RRR Lungs: CTAB Abdomen: Mild epigastric tenderness, nondistended, bs+ Assessment: Patient with chest pain, likely GERD. Unlikely ACS EKG done- unchanged from prior Protonix po 40 mg Will continue to monitor Visit type - Emergency Visit Emergency Visit: Yes ED Registration Date: 03/12/17 Care time: The patient presented to the Emergency Department on the above date and was hospitalized for further evaluation of their emergent condition. - New Patient This patient is new to me today: Yes Date on this admission: 03/19/17 - Critical Care Critical Care patient: No
[2017-03-18] MEDS: HEPARIN INFUSION - 25,000 UNITS/500 ML INFUS.BAG IVPB SCH ×2 (05:34→08:17)
[2017-03-18] MEDS: INSULIN SLIDING SCALE (NOVOLOG) 1 VIAL SQ SCH ×4 (06:11→21:11)
[2017-03-18 07:32] LABS: MCH 30.6 pg (25.7-33.7); MCHC 34.2 g/dl (32.0-35.9); MEAN CELL VOLUME 89.4 fl (80-96); MEAN PLT VOLUME 10.3 fl (7.5-11.1); PLATELET COUNT 142 K/MM3 (134-434); RDW 13.3 % (11.9-15.9); WHITE BLOOD COUNT 10.3 K/mm3 (4.0-10.0)
[2017-03-18 08:15] LABS: INR 1.37 (0.82-1.09); PROTHROMBIN TIME (PATIENT) 15.5 SEC (9.98-11.88)
[2017-03-18] MEDS: METOPROLOL SUCCINATE 50 MG TAB.SR.24H (FP) PO SCH ×2 (09:10→21:11)
[2017-03-18] MEDS: MUPIROCIN 2% TOPICAL OINTMENT 22 GM TUBE TP SCH (10:00)
[2017-03-18] MEDS: oxyCODONE HCL 5 MG TABLET PO PRN ×2 (10:56→21:11)
[2017-03-18] MEDS ORDERED: INSULIN (NOVOLOG) ASPART 100 UNITS/ML 10ML VIAL ONE (11:50)
--- NOTE | 2017-03-18 12:19 | PN ---
Progress Note (short form) - Note Progress Note: Podiatry F/U: Seen/evaluated at bedside, NAD. Does have persistent tenderness to L foot surgical site. Denies F/V/N/C. S/p L hallux amputation with first metatarsal head resection. Afebrile. WILLIAM: L foot: pedal pulses palpable, TG wnl. Sutures coapted along amputation stump, no dehiscence. There are signs of hematoma formation central aspect of surgical site with significant tenderness to palpation. There is no purulence, no fluctuance, no ascending cellulitis, no signs of active infection. OR Cx: yeast like organism OR Bone Path: pending Imp: 51 year old DM M s/p L hallux amputation, post-op hematoma 1. Central sutures removed and all hematoma evacuated. Pt reports improvement in pain to surgical site. Given his heparinization it is not uncommon to experience post-op hematoma 2. Packed with sterile gauze and DSD L foot 3. Partial WB L heel with surgical shoe 4. On Tele for cardiac monitoring 5. Bone path pending, should be back tomorrow 6. Will follow Jimmie Alvarado DPM
--- NOTE | 2017-03-18 12:59 | PN ---
Teaching Attending Note Name of Resident: Brett Herndon ATTENDING PHYSICIAN STATEMENT I saw and evaluated the patient. I reviewed the resident's note and discussed the case with the resident. I agree with the resident's findings and plan as documented. SUBJECTIVE:asymptomatic. states he had episodes of CP last night. denies CP now , SOB, fever, chills, palpitations, N/V/C/D OBJECTIVE: Last Vital Signs Temp Pulse Resp BP Pulse Ox 98.2 F 103 H 18 100/63 98 03/18/17 10:00 03/18/17 10:00 03/18/17 10:00 03/18/17 10:00 03/18/17 09:00 General NAD CV S1 S2 irregular no murmur/rub/gallop +chest wall tednerness Lungs CTA B/L no wheezing/rales/rhonchi ASSESSMENT AND PLAN: 51 year old male with PMH significant for HTN, NIDDM, atrial fibrillation on warfarin, s/p multiple toe amputations, recent LLE cellulitis 02/13/17 treated with augmentin. Admitted for osteomyelitis 1. Left plantar hallux OM- confirmed on MRI. s/p L hallux resection 03/15. startd on vanco yesterday awaiting Bone Bx. now reported as few yeast. most liekly does not require abx. will d/c ID. furtehr management per podiatry. ambulated 80 feet with PT. cont pain control. 2. Afib with RVR-episode of RVR. now rate improved. on home dose of metoprolol. INR subtherapeutic. on hep-coumadin bridge. states he was started on coumadin earlier this year at [facility] when he was found to be in afib. was not given option of alternative medication for anticoagulation. unclear if he has valvular issues. is agreeable to NOAC. will obtain echo to r/o valve issues. counseled on risks associ with NOAC. verbalized understanding of risk and agreeable to changing. 3. CP- likely musculoskeletal with +chest wall tenderness. tyelnol prn pain. cardiac enzymes neg x2. 3. DM- controlled. hold oral agents. cont iss 4. Hypotension- resolved. 6. Hypomagnesemia- resolved 7. DVT ppx- hep ggt-coumadin bridge 8. once can clarify if requires hep-coumadin bridging vs alternative NOAC can d/ c home
--- NOTE | 2017-03-18 13:16 | PN ---
Progress Note, Physician Chief Complaint: Chest pain - Current Medication List Current Medications: Active Medications Heparin Sodium (Porcine) (Heparin -) 1,000 unit IVPUSH PRN PRN PRN Reason: Heparin Heparin Sodium (Porcine) (Heparin -) 5,000 unit IVPUSH PRN PRN PRN Reason: Heparin Last Admin: 03/18/17 08:17 Dose: 5,000 unit Heparin Sodium/Dextrose (Heparin Infusion -) 25,000 units in 500 mls @ 20 mls/ hr IVPB TITR TOSHIA; 1,000 UNITS/HR PRN Reason: Protocol Last Admin: 03/18/17 08:17 Dose: 1,250 units/hr, 25 mls/hr Vancomycin HCl 1,000 mg/ (Dextrose) 250 mls @ 166.667 mls/hr IVPB Q12H TOSHIA PRN Reason: Protocol Last Admin: 03/18/17 01:43 Dose: 166.667 mls/hr Insulin Aspart (Novolog Vial Sliding Scale -) 1 vial SQ ACHS TOSHIA PRN Reason: Protocol Last Admin: 03/18/17 12:21 Dose: 4 units Metoprolol Succinate (Toprol Xl -) 50 mg PO BID [facility] Last Admin: 03/18/17 09:10 Dose: 50 mg Morphine Sulfate (Morphine Sulfate) 2 mg IVPB Q4H PRN PRN Reason: PAIN Last Admin: 03/18/17 12:25 Dose: 2 mg Mupirocin (Bactroban 2% Ointment -) 1 applic TP DAILY [facility] Ondansetron HCl (Zofran Injection) 4 mg IVPUSH Q6H PRN PRN Reason: NAUSEA AND/OR VOMITING Oxycodone HCl (Roxicodone -) 5 mg PO Q4H PRN PRN Reason: PAIN LEVEL 1-5 Last Admin: 03/18/17 10:56 Dose: 5 mg Senna (Senna -) 2 tab PO HS TOSHIA Last Admin: 03/17/17 21:29 Dose: 2 tab Warfarin Sodium (Coumadin -) 3 mg PO DAILY@1800 TOSHIA - Objective Vital Signs: Vital Signs Temperature 98.2 F 03/18/17 10:00 Pulse Rate 103 H 03/18/17 10:00 Respiratory Rate 18 03/18/17 10:00 Blood Pressure 100/63 03/18/17 10:00 O2 Sat by Pulse Oximetry (%) 98 03/18/17 09:00 Constitutional: Yes: Well Nourished, No Distress, Calm Eyes: Yes: WNL, Conjunctiva Clear HENT: Yes: WNL, Atraumatic, Normocephalic Neck: Yes: WNL, Supple, Trachea Midline Cardiovascular: Yes: Pulse Irregular, S1, S2 Respiratory: Yes: WNL, Regular, CTA Bilaterally Gastrointestinal: Yes: WNL, Normal Bowel Sounds, Soft ...Rectal Exam: Yes: Deferred Genitourinary: Yes: WNL Breast(s): Yes: WNL Musculoskeletal: Yes: WNL Extremities: Yes: Amputation Edema: No Peripheral Pulses: Left Radial: 1+, Right Radial: 1+, Left Doralis Pedis: 1+, Right Dorsalis Pedis: 1+, Left Femoral: 1+, Right Femoral: 1+ Integumentary: Yes: WNL Wound/Incision: Yes: Clean/Dry Neurological: Yes: WNL Labs: CBC, BMP 03/18/17 05:05 03/17/17 07:15 INR, PTT INR 1.37 (0.82-1.09) H 03/18/17 05:05 Assessment/Plan The patient has been stable from the cardiac standpoint. The blood pressure is in good range. Ventricular rates are better controlled in atrial fibrillation. The echocardiogram showed that the left ventricle is functioning normally. There are no segmental wall motion abnormalities. There were no other clinically important findings on the echo. ([facility] report). There is no need for further cardiac workup at this point. May stop telemetry. Continue current regimen. Please do not hesitate to call us PRN
[2017-03-18] MEDS ORDERED: METOPROLOL TARTRATE 5 MG/5 ML VIAL IVPUSH PRN (13:35)
--- NOTE | 2017-03-18 16:24 | PN ---
Progress Note, Physician History of Present Illness: Pt states he feels well. Pain is controlled. No new complaints. Denies chest pain/SOB at this time. - Current Medication List Current Medications: Active Medications Apixaban (Eliquis -) 5 mg PO BID [facility] Heparin Sodium (Porcine) (Heparin -) 1,000 unit IVPUSH PRN PRN PRN Reason: Heparin Heparin Sodium (Porcine) (Heparin -) 5,000 unit IVPUSH PRN PRN PRN Reason: Heparin Last Admin: 03/18/17 08:17 Dose: 5,000 unit Heparin Sodium/Dextrose (Heparin Infusion -) 25,000 units in 500 mls @ 20 mls/ hr IVPB TITR TOSHIA; 1,000 UNITS/HR PRN Reason: Protocol Last Admin: 03/18/17 08:17 Dose: 1,250 units/hr, 25 mls/hr Vancomycin HCl 1,000 mg/ (Dextrose) 250 mls @ 166.667 mls/hr IVPB Q12H TOSHIA PRN Reason: Protocol Last Admin: 03/18/17 14:03 Dose: 166.667 mls/hr Insulin Aspart (Novolog Vial Sliding Scale -) 1 vial SQ ACHS TOSHIA PRN Reason: Protocol Last Admin: 03/18/17 12:21 Dose: 4 units Metoprolol Succinate (Toprol Xl -) 50 mg PO BID [facility] Last Admin: 03/18/17 09:10 Dose: 50 mg Metoprolol Tartrate (Lopressor Injection -) 5 mg IVPUSH Q4H PRN PRN Reason: HYPERTENSION Morphine Sulfate (Morphine Sulfate) 2 mg IVPB Q4H PRN PRN Reason: PAIN Last Admin: 03/18/17 12:25 Dose: 2 mg Mupirocin (Bactroban 2% Ointment -) 1 applic TP DAILY [facility] Ondansetron HCl (Zofran Injection) 4 mg IVPUSH Q6H PRN PRN Reason: NAUSEA AND/OR VOMITING Oxycodone HCl (Roxicodone -) 5 mg PO Q4H PRN PRN Reason: PAIN LEVEL 1-5 Last Admin: 03/18/17 10:56 Dose: 5 mg Senna (Senna -) 2 tab PO HS TOSHIA Last Admin: 03/17/17 21:29 Dose: 2 tab - Objective Vital Signs: Vital Signs Temperature 98.4 F 03/18/17 15:48 Pulse Rate 102 H 03/18/17 15:48 Respiratory Rate 18 03/18/17 10:00 Blood Pressure 104/58 03/18/17 15:48 O2 Sat by Pulse Oximetry (%) 98 03/18/17 09:00 Constitutional: Yes: No Distress, Calm Cardiovascular: Yes: WNL Respiratory: Yes: WNL Gastrointestinal: Yes: Normal Bowel Sounds, Soft Extremities: Yes: Amputation (Lt hallux amputation - dressing intact) Labs: CBC, BMP 03/18/17 05:05 03/17/17 07:15 INR, PTT INR 1.37 (0.82-1.09) H 03/18/17 05:05 Problem List - Problems (1) Foot ulcer Code(s): L97.509 - NON-PRESSURE CHRONIC ULCER OTH PRT UNSP FOOT W UNSP SEVERITY (2) Wound infection Code(s): T14.8XXA - OTHER INJURY OF UNSPECIFIED BODY REGION, INITIAL ENCOUNTER; L08.9 - LOCAL INFECTION OF THE SKIN AND SUBCUTANEOUS TISSUE, UNSP (3) Osteomyelitis of toe Code(s): M86.9 - OSTEOMYELITIS, UNSPECIFIED Assessment/Plan 51 y.o. male with DM, Lt 1st toe partial amputation and Lt 4th toe amputation presenting with c/o mild purulent drainage from Lt 1st toe stump site. No edema/ erythema/tenderness. Pt afebrile, without leukocytosis. MRI results indicating bone marrow edema c/w OM s/p Lt hallux amputation - pt afebrile - cont wound care -Bone pathology results pending - will f/u -Podiatry following, case d/w Dr. Alvarado - continue monitor
--- NOTE | 2017-03-18 16:38 | PN ---
Physical Exam: SUBJECTIVE: Patient seen and examined at bedside. He states that he has some residual chest pain that is nonradiating since last night. He was given zantac. He states that the pain has improved. Denies palpitations, nausea, vomiting, shortness of breath, fevers, chills. OBJECTIVE: Vital Signs Period Temp Pulse Resp BP Sys/Griffith Pulse Ox Last 24 Hr 98.2 F-99.0 F 101-126 18-20 97-120/51-72 98-98 GENERAL: The patient is awake, alert, and fully oriented, in no acute distress. LUNGS: Breath sounds equal, clear to auscultation bilaterally, no wheezes, no crackles, no accessory muscle use. HEART: tachycardic, irregular rhythm, S1, S2 without murmur, rub or gallop. ABDOMEN: Soft, nontender, nondistended, normoactive bowel sounds, no guarding, no rebound, no hepatosplenomegaly, no masses. EXTREMITIES: 2+ pulses, warm, well-perfused, no edema. RLE has previous amputation of 3rd toe. LLE has amputation of great toe. Wound well approximated , no purulent drainage. NEUROLOGICAL: Cranial nerves II through XII grossly intact. Normal speech, gait not observed. PSYCH: Normal mood, normal affect. SKIN: Warm, dry, normal turgor, no rashes or lesions noted Laboratory Results - last 24 hr 03/17/17 03/17/17 03/17/17 15:30 17:02 21:33 WBC RBC Hgb Hct MCV MCH MCHC RDW Plt Count MPV PT with INR INR PTT (Actin FS) POC Glucometer 292 222 Troponin I < 0.02 03/18/17 03/18/17 03/18/17 05:05 05:05 05:05 WBC 10.3 H RBC 4.36 Hgb 13.3 Hct 39.0 MCV 89.4 MCH 30.6 MCHC 34.2 RDW 13.3 Plt Count 142 MPV 10.3 D PT with INR 15.50 H INR 1.37 H PTT (Actin FS) 36.7 H D POC Glucometer Troponin I 03/18/17 03/18/17 03/18/17 05:29 11:22 15:44 WBC RBC Hgb Hct MCV MCH MCHC RDW Plt Count MPV PT with INR INR PTT (Actin FS) POC Glucometer 188 221 208 Troponin I Active Medications Generic Name Dose Route Start Last Admin Trade Name Freq PRN Reason Stop Dose Admin Apixaban 5 mg 03/18/17 22:00 Eliquis - PO BID TOSHIA Heparin Sodium (Porcine) 1,000 unit 03/17/17 18:43 Heparin - IVPUSH PRN PRN Heparin Heparin Sodium (Porcine) 5,000 unit 03/17/17 18:43 03/18/17 08:17 Heparin - IVPUSH 5,000 unit PRN PRN Administration Heparin Heparin Sodium/Dextrose 25,000 units in 500 mls @ 20 mls/hr 03/17/17 18:43 08:17 Heparin Infusion - IVPB 1,250 units/hr TITR TOSHIA 25 mls/hr Protocol Administration 1,000 UNITS/HR Vancomycin HCl 1,000 mg/ 250 mls @ 166.667 mls/hr 03/18/17 02:15 03/18/17 14: 03 Dextrose IVPB 166.667 mls/hr Q12H TOSHIA Administration Protocol Insulin Aspart 1 vial 03/17/17 22:00 03/18/17 12:21 Novolog Vial Sliding Scale - SQ 4 units ACHS TOSHIA Administration Protocol Metoprolol Succinate 50 mg 03/17/17 22:00 03/18/17 09:10 Toprol Xl - PO 50 mg BID [facility] Administration Metoprolol Tartrate 5 mg 03/18/17 13:35 Lopressor Injection - IVPUSH Q4H PRN HYPERTENSION Morphine Sulfate 2 mg 03/17/17 18:43 03/18/17 12:25 Morphine Sulfate IVPB 2 mg Q4H PRN Administration PAIN Mupirocin 1 applic 03/18/17 10:00 Bactroban 2% Ointment - TP DAILY [facility] Ondansetron HCl 4 mg 03/17/17 18:43 Zofran Injection IVPUSH Q6H PRN NAUSEA AND/OR VOMITING Oxycodone HCl 5 mg 03/17/17 18:43 03/18/17 10:56 Roxicodone - PO 5 mg Q4H PRN Administration PAIN LEVEL 1-5 Senna 2 tab 03/17/17 22:00 03/17/17 21:29 Senna - PO 2 tab HS TOSHIA Administration ASSESSMENT/PLAN: 51 year old male with a past medical history of uncontrolled diabetes mellitus and hypertension is admitted to the hospital for the treatment of diabetic foot ulcer on the left great toe #Diabetic foot ulcer: patient is s/p amputation of L great toe by Dr. Alvarado -bone biopsy growing rare yeast -Walked 80 feet with PT -pain control -zofran for nausea -appreciate Dr. Alvarado consultation -ID consult appreciated; can DC off abx outpatient #Atrial Fibrillation: went into rapid Afib with RVR today, controlled now -give home metoprolol 25mg -DC coumadin tonight -Echo obtained, no significant abnormalities -start eliquis 5mg PO BID tonight at 10pm -hold heparin 2 hours before starting eliquis -monitor INR today - 1.3 today #Diabetes Mellitus: -Insulin sliding scale coverage -BGM #Hypertension -give metoprolol 25mg PO QD #FEN Diabetic diet No standing fluids Replete lytes as necessary #Prophylaxis -start eliquis tonight -heparin bridge #Disposition -Dispo Visit type - Emergency Visit Emergency Visit: No - New Patient This patient is new to me today: No - Critical Care Critical Care patient: No
--- NOTE | 2017-03-18 17:04 | PATH ---
Surgical Pathology Report Patient Name: [facility]. Rec. #: [id number] /Age/Gender: 1965 (Age: 51) / M Account: [id number] Location: 4 W TELEMETRY U Taken: 03/16/2017 Received: 03/16/2017 Reported: 03/18/2017 Physicians: MARGIE Alexander ACNP Specimen(s) Received A: GREAT TOE LEFT B: PROXIMAL BONE Clinical History Ulcer of foot Final Diagnosis A. FIRST DIGIT (GREAT TOE), FOOT, LEFT, AMPUTATION: DIGIT WITH FOCI OF MARKED ACUTE INFLAMMATION AND ULCERATION. ACUTE AND CHRONIC OSTEOMYELITIS. MILD TO MODERATE ATHEROSCLEROSIS. SURGICAL MARGINS ARE VIABLE. B. PROXIMAL BONE, FOOT, LEFT, EXCISION: BONE WITH FOCAL INTERSTITIAL HEMORRHAGE. NO EVIDENCE OF ACUTE OSTEOMYELITIS. Electronically Signed Claudia Montero M.D. Gross Description A. Received in formalin labeled "great toe left," is a 4.3 x 3.2 x 3.1 cm toe amputation. The epidermal surface displays a 3.1 x 2.1 cm ulcerated lesion which appears to involve skin and soft tissue margin. The lesion extends to and possibly involves the underlying bone. Also received is in the same container is a 2.3 x 2.0 x 0.8 cm undesignated portion of bone as well as a 3.0 x 2.2 x 0.8 cm portion as soft tissue. Cuff Presser sections are submitted in 4 cassettes as follows: 1-lesion with underlying bone, following decalcification; 2-bone margin, following decalcification; 3-skin and soft tissue margin; 4-separately received bone and soft tissue, following decalcification. B. Received in formalin labeled "proximal bone left foot," is a 2.5 x 1.8 x 0.3 cm bone shave. The specimen is submitted in toto in one cassette, following decalcification. 03/17/201703/17/2017
[2017-03-18] MEDS ORDERED: WARFARIN NA 3 MG TABLET PO SCH (18:00)
[2017-03-18] MEDS: SENNOSIDES 8.6MG TABLET (FP) PO SCH (21:10)
[2017-03-18] MEDS: APIXABAN 5 MG TABLET PO SCH (22:06)
[2017-03-19] MEDS ORDERED: PT OWN MED DRAWER 7, Y5N ONE (00:58)
[2017-03-19] MEDS: VANCOMYCIN 1,000 MG in DEXTROSE 5%-WATER - 250 ML IVPB SCH (01:26)
[2017-03-19] MEDS: INSULIN SLIDING SCALE (NOVOLOG) 1 VIAL SQ SCH ×2 (06:37→11:46)
[2017-03-19 08:01] LABS: MCH 30.9 pg (25.7-33.7); MCHC 34.2 g/dl (32.0-35.9); MEAN CELL VOLUME 90.2 fl (80-96); MEAN PLT VOLUME 9.9 fl (7.5-11.1); PLATELET COUNT 165 K/MM3 (134-434); RDW 13.2 % (11.9-15.9); WHITE BLOOD COUNT 7.4 K/mm3 (4.0-10.0)
[2017-03-19 08:31] LABS: ANION GAP 8 (8-16); CALCIUM 8.2 mg/dL (8.5-10.1); CO2 25 mmol/L (21-32); CREATININE 0.9 mg/dL (0.7-1.3); GLUCOSE,RANDOM 228 mg/dL (74-106)
--- NOTE | 2017-03-19 08:42 | PN ---
Teaching Attending Note Name of Resident: Brett Herndon ATTENDING PHYSICIAN STATEMENT I saw and evaluated the patient. I reviewed the resident's note and discussed the case with the resident. I agree with the resident's findings and plan as documented. SUBJECTIVE:continues to have intermittent foot pain. denies Cp, SOB, fever, chills, N/V/c/D, palpitations OBJECTIVE: Last Vital Signs Temp Pulse Resp BP Pulse Ox 98.0 F 92 H 18 100/65 98 03/19/17 05:00 03/19/17 05:00 03/19/17 05:00 03/19/17 05:00 03/18/17 09:00 General NAD CV S1 S2 irregular no murmur/rub/gallop +chest wall tednerness Lungs CTA B/L no wheezing/rales/rhonchi ASSESSMENT AND PLAN: 51 year old male with PMH significant for HTN, NIDDM, atrial fibrillation on warfarin, s/p multiple toe amputations, recent LLE cellulitis 02/13/17 treated with augmentin. Admitted for osteomyelitis 1. Left plantar hallux OM- confirmed on MRI. s/p L hallux resection 03/15. Cx negative for growth. abx d/c. no indication at this time. states tyelnol does not help with pain and requesting percocet to go home with as helped here. educated on risks assoc with narcotics. the potential for abuse, sedation and constipation. will provide 3 day supply. informed to only take for severe pain. follow up podiatry as outpatient. 2. Afib with RVR-episode of RVR. now rate improved. on home dose of metoprolol echo done to r/o valve disorders. pt agreeable to starting elquids. hep ggt/ coumadin d/c and started eliquis. 3. CP- likely musculoskeletal with +chest wall tenderness. tyelnol prn pain. cardiac enzymes neg x2. 3. DM- controlled. hold oral agents. cont iss 4. Hypotension- resolved. 6. Hypomagnesemia- resolved 7. DVT ppx- eliquis 8. d/c home. educated on importance of diabetic diet, medication compliance and follow up Istop reference # [id number]
[2017-03-19] MEDS: MUPIROCIN 2% TOPICAL OINTMENT 22 GM TUBE TP SCH (09:40)
[2017-03-19] MEDS: METOPROLOL SUCCINATE 50 MG TAB.SR.24H (FP) PO SCH (09:40)
[2017-03-19] MEDS: APIXABAN 5 MG TABLET PO SCH (09:40)
--- NOTE | 2017-03-19 15:00 | PN ---
Progress Note, Physician History of Present Illness: Pt feels well. No specific new complaints. - Current Medication List Current Medications: Active Medications Apixaban (Eliquis -) 5 mg PO BID [facility] Last Admin: 03/19/17 09:40 Dose: 5 mg Heparin Sodium (Porcine) (Heparin -) 1,000 unit IVPUSH PRN PRN PRN Reason: Heparin Heparin Sodium (Porcine) (Heparin -) 5,000 unit IVPUSH PRN PRN PRN Reason: Heparin Last Admin: 03/18/17 08:17 Dose: 5,000 unit Heparin Sodium/Dextrose (Heparin Infusion -) 25,000 units in 500 mls @ 20 mls/ hr IVPB TITR TOSHIA; 1,000 UNITS/HR PRN Reason: Protocol Last Admin: 03/18/17 08:17 Dose: 1,250 units/hr, 25 mls/hr Insulin Aspart (Novolog Vial Sliding Scale -) 1 vial SQ ACHS TOSHIA PRN Reason: Protocol Last Admin: 03/19/17 11:46 Dose: Not Given Metoprolol Succinate (Toprol Xl -) 50 mg PO BID [facility] Last Admin: 03/19/17 09:40 Dose: 50 mg Metoprolol Tartrate (Lopressor Injection -) 5 mg IVPUSH Q4H PRN PRN Reason: HYPERTENSION Morphine Sulfate (Morphine Sulfate) 2 mg IVPB Q4H PRN PRN Reason: PAIN Last Admin: 03/18/17 12:25 Dose: 2 mg Mupirocin (Bactroban 2% Ointment -) 1 applic TP DAILY [facility] Last Admin: 03/19/17 09:40 Dose: Not Given Ondansetron HCl (Zofran Injection) 4 mg IVPUSH Q6H PRN PRN Reason: NAUSEA AND/OR VOMITING Oxycodone HCl (Roxicodone -) 5 mg PO Q4H PRN PRN Reason: PAIN LEVEL 1-5 Last Admin: 03/18/17 21:11 Dose: 5 mg Senna (Senna -) 2 tab PO HS [facility] Last Admin: 03/18/17 21:10 Dose: 2 tab - Objective Vital Signs: Vital Signs Temperature 97.7 F 03/19/17 09:00 Pulse Rate 101 H 03/19/17 09:00 Respiratory Rate 18 03/19/17 09:00 Blood Pressure 114/60 03/19/17 09:00 O2 Sat by Pulse Oximetry (%) 97 03/19/17 09:00 Constitutional: Yes: No Distress, Calm Cardiovascular: Yes: WNL Respiratory: Yes: WNL Gastrointestinal: Yes: Normal Bowel Sounds, Soft Wound/Incision: Yes: Dressing Dry and Intact (LT foot) Neurological: Yes: Alert, Oriented Labs: CBC, BMP 03/19/17 06:30 03/19/17 06:30 INR, PTT INR 1.37 (0.82-1.09) H 03/18/17 05:05 Problem List - Problems (1) Foot ulcer Code(s): L97.509 - NON-PRESSURE CHRONIC ULCER OTH PRT UNSP FOOT W UNSP SEVERITY (2) Wound infection Code(s): T14.8XXA - OTHER INJURY OF UNSPECIFIED BODY REGION, INITIAL ENCOUNTER; L08.9 - LOCAL INFECTION OF THE SKIN AND SUBCUTANEOUS TISSUE, UNSP (3) Osteomyelitis of toe Code(s): M86.9 - OSTEOMYELITIS, UNSPECIFIED Assessment/Plan 51 y.o. male with DM, Lt 1st toe partial amputation and Lt 4th toe amputation presenting with c/o mild purulent drainage from Lt 1st toe stump site. No edema/ erythema/tenderness. Pt afebrile, without leukocytosis. MRI results indicating bone marrow edema c/w OM s/p Lt hallux amputation - pt afebrile, now off antibiotics - needs cont wound care -Bone culture no growth -Podiatry following, case d/w Dr. Alvarado - continue f/u with PMD and Podiatry pt for d/c today
--- NOTE | 2017-03-19 15:39 | DS ---
Physical Exam: SUBJECTIVE: Patient seen and examined at bedside. Denies chest pain, palpitations, nausea, vomiting, diarrhea, pain in his leg. OBJECTIVE: Vital Signs Period Temp Pulse Resp BP Sys/Griffith Pulse Ox Last 24 Hr 97.7 F-98.8 F 92-106 18-18 95-115/58-68 97 PHYSICAL EXAM GENERAL: The patient is awake, alert, and fully oriented, in no acute distress. LUNGS: Breath sounds equal, clear to auscultation bilaterally, no wheezes, no crackles, no accessory muscle use. HEART: regular rate, irregular rhythm, S1, S2 without murmur, rub or gallop. ABDOMEN: Soft, nontender, nondistended, normoactive bowel sounds, no guarding, no rebound, no hepatosplenomegaly, no masses. EXTREMITIES: 2+ pulses, warm, well-perfused, no edema. RLE has previous amputation of 3rd toe. LLE has amputation of great toe. Wound well approximated , no purulent drainage. NEUROLOGICAL: Cranial nerves II through XII grossly intact. Normal speech, gait not observed. PSYCH: Normal mood, normal affect. SKIN: Warm, dry, normal turgor, no rashes or lesions noted LABS Laboratory Results - last 24 hr 03/18/17 03/18/17 03/18/17 15:44 16:00 20:53 WBC RBC Hgb Hct MCV MCH MCHC RDW Plt Count MPV PTT (Actin FS) 40.9 H Sodium Potassium Chloride Carbon Dioxide Anion Gap BUN Creatinine POC Glucometer 208 215 Random Glucose Calcium 03/19/17 03/19/17 03/19/17 06:23 06:30 06:30 WBC 7.4 RBC 4.24 Hgb 13.1 Hct 38.2 MCV 90.2 MCH 30.9 MCHC 34.2 RDW 13.2 Plt Count 165 MPV 9.9 PTT (Actin FS) 31.3 Sodium Potassium Chloride Carbon Dioxide Anion Gap BUN Creatinine POC Glucometer 220 Random Glucose Calcium 03/19/17 06:30 WBC RBC Hgb Hct MCV MCH MCHC RDW Plt Count MPV PTT (Actin FS) Sodium 135 L Potassium 4.2 Chloride 102 Carbon Dioxide 25 Anion Gap 8 BUN 17 Creatinine 0.9 POC Glucometer Random Glucose 228 H D Calcium 8.2 L HOSPITAL COURSE: Date of Admission:03/12/17 This is a 51 year old male with a past medical history of uncontrolled diabetes and hypertension presented to the hospital initially for a blister on his L great toe, which he had a partial amputation on in the past. Patient was diagnosed with diabetic foot ulcer and given clindamycin in the ED. Dr. Alvarado (podiatry) was consulted. Xray of the foot revealed no evidence of osteomyelitis, but subsequent MRI did show osteomyelitis of the L great toe. Patient was treated with IV antibiotics and Dr. Alvarado performed a full amputation of his L great toe. Cultures of the bone and tissue were collected. Patient was not treated with antibiotics after the procedure until bone culture returned. Bone culture returned growing rare yeast-like organisms and patient was not started on any antibiotics. During hospitalization, patient went into rapid atrial fibrillation. He was transferred to a telemetry floor. Patient's rate stabilized and he was able to be discharged with prescription for walker and crutches. Patient was discharged on 03/19/17. There were no antibiotics prescribed on discharge. Date of Discharge: 03/19/17 Minutes to complete discharge: 35 Discharge Summary Reason For Visit: ULCER OF FOOT Current Active Problems Foot ulcer (Acute) Osteomyelitis of toe (Acute) Wound infection (Acute) Condition: Stable - Instructions Diet, Activity, Other Instructions: You were treated in the hospital for osteomyelitis, an infection of your bone in your left great toe. You underwent surgery to amputate the left great toe, a procedure necessary to prevent worsening infection. Follow a diabetic diet Take percocet only for severe pain. This medication has an addicition potential. This medication is also sedating. do not drive or operate machinery when using this medication. Can also cause constipation and ensure that you have daily bowel movements Medical Recommendations: -You will not require antibiotics at home -keep the wound clean and dry -monitor for any discharge from the wound -make sure to walk with a boot and put pressure on your heel when you walk For Your Heart: You were placed on Eliquis, a medication that helps us anticoagulate your blood to prevent strokes. You will be given 1 month supply. Take Eliquis 5mg twice a day by mouth You were previously on 3mg of Coumadin at home. Please do not take coumadin at home anymore, this medication has been replaced by Eliquis We increased your metoprolol to 50mg twice a day, please take Metoprolol 50mg by mouth twice a day. You will be given a 1 month supply. It is very important that you follow with a primary care physician to discuss your medications Referrals: Please make an appointment to see the tumble tailstock turret lathe operator (foot doctor) Dr. Alvarado within 2 weeks of discharge Please make an appointment to see your primary care physician within 1 week of discharge. If you don't have one, make an appointment with us at: [address] [place] [address] If you experience severe pain, fevers >101, chills, nausea/vomiting, please call your doctor or return to the emergency room immediately. Similarly, if you experience swelling, foul smelling discharge from your wound, please return to the emergency room because that could be an evolving infection. Referrals: Kirill Mijares MD [Staff Physician] - Cristi Alvarado MD [Staff Physician] - Disposition: HOME - Home Medications Comprehensive Discharge Medication List: Ambulatory Orders Metformin HCl [Glucophage] 1,000 mg PO BID 02/13/17 Apixaban [Eliquis] 5 mg PO BID #60 tablet 03/19/17 Metoprolol Succinate [Toprol XL -] 50 mg PO BID 30 Days #60 tab.sr.24h 03/19/17 Oxycodone HCl/Acetaminophen [Percocet 5-325 mg Tablet] 1 tab PO Q6H PRN #12 tablet MDD 20 03/19/17 Walker [Ultra-Light Rollator] 1 each [facility] DAILY #1 each 03/19/17 This patient is new to me today: No Emergency Visit: No Critical Care patient: No - Discharge Referral Referred to [facility] No
[2017-03-19 19:24] VITALS: BP 135/73; PULSE 90; TEMP 98.8
--- NOTE | 2017-03-23 01:55 | EKG ---
Test Reason : Blood Pressure : / mmHG Vent. Rate : 104 BPM Atrial Rate : 312 BPM P-R Int : 000 ms QRS Dur : 088 ms QT Int : 270 ms P-R-T Axes : 000 -10 -16 degrees QTc Int : 355 ms ATRIAL FIBRILLATION WITH RAPID VENTRICULAR RESPONSE NONSPECIFIC T WAVE ABNORMALITY ABNORMAL ECG WHEN COMPARED WITH ECG OF 17-MAR-2017 08:44, T WAVE VARIATION Confirmed by JOSEPH ORTEGA MD ([id number]) on 03/23/2017 1:54:37 AM Referred By: Confirmed By:JOSEPH ORTEGA MD
== END 2017-03-19 18:18 | disposition home or self-care (01) | DRG 314 ==
LOC: JER 17:05 → JERBED 21:48 → J5S 23:11 → OBSVTOIN 03-12 13:32 → J4W 03-17 15:58
PROVIDERS: ADMIT Internal Medicine; ATTEND Internal Medicine
PROC: 0Y6Q0Z2 Detachment at Left 1st Toe, Mid, Open Approach (ICD-10-PCS; principal; 2017-03-15 13:30)
DX: T87.44 Infection of amputation stump, left lower extremity (principal); E11.621 Type 2 diabetes mellitus with foot ulcer; L97.528 Non-pressure chronic ulcer of other part of left foot with other specified severity; M86.8X7 Other osteomyelitis, ankle and foot; I48.2 Chronic atrial fibrillation; I95.89 Other hypotension; E83.42 Hypomagnesemia; E11.51 Type 2 diabetes mellitus with diabetic peripheral angiopathy without gangrene; B48.8 Other specified mycoses; Z89.421 Acquired absence of other right toe(s); Z89.422 Acquired absence of other left toe(s); Y83.8 Other surgical procedures as the cause of abnormal reaction of the patient, or of later complication, without mention of misadventure at the time of the procedure; Z79.01 Long term (current) use of anticoagulants
CPT/HCPCS: 36415; 71010-TC; 73630-TC-LT; 73720-LT; 80048; 80053; 81003; 83036; 83735; 84100; 84484; 85025; 85027; 85610; 85730; 87040; 87070; 87075; 87077; 87205; 88305-TC; 88311-TC; 93005; 93010; 93306-TC; 93923; 94760; 97116-GP; 97161-GP; 99284-25; G0378; J1644

== ENCOUNTER 2017-05-10 20:59 | Emergency (ER) | payer OTHER ==
--- NOTE | 2017-05-10 21:11 | PDOC ---
Rapid Medical Evaluation Time Seen by Provider: 05/10/17 21:10 Medical Evaluation: Allergies Allergy/AdvReac Type Severity Reaction Status Date / Time No Known Allergies Allergy Verified 03/10/17 17:12 05/10/17 21:10 The patient presents with a chief complaint of: Wound to plantar surface of L foot since yesterday. Hx of great toe amputation on L side in March 2017. Hx of NIDDM I have performed a brief in-person evaluation of this patient; Pertinent physical exam findings: ambulatory, in no respiratory distress. Broken callus to L plantar surface approximately 4cm I have ordered the following: CBC, CMP, L foot x-ray The patient will proceed to the ED for further evaluation.
[2017-05-10 21:22] VITALS: BP 105/72; PULSE 99; TEMP 98.3; BMI 28.5
--- NOTE | 2017-05-10 21:39 | PDOC ---
History of Present Illness - General History Source: Patient Exam Limitations: No Limitations - History of Present Illness Initial Comments: 05/10/17 22:41 The patient is a 51 year old male with a significant PMH of non-insulin dependent diabetes (with multiple related toe amputations) who presents to the emergency department with left foot pain secondary to a wound on the plantar surface of the left foot. He reports feeling left foot pain intermittently since March which worsened yesterday. He reports showering about 8 hours ago and noticing some blood leaking from a wound on his left foot, and presents today after being concerned for a foot infection. The patient denies any recent trauma. He denies any active bleeding. The patient reports being compliant with his diabetes medications but notes he has not checked his blood sugar recently. The patient denies chest pain, shortness of breath, headache and dizziness. Denies fever, chills, nausea, vomit, diarrhea and constipation. Denies dysuria, frequency, urgency and hematuria. Allergies: NKA Past surgical history: Recent left great toe amputation (03/2017). Multiple other Social history: No reported cigarette, alcohol, or drug use. PCP: None reported. <Colton Ordaz - Last Filed: 05/10/17 22:41> <Diann Bender - Last Filed: 05/10/17 23:02> - General Chief Complaint: Wound Stated Complaint: INJURY Time Seen by Provider: 05/10/17 21:10 Past History <Colton Ordaz - Last Filed: 05/10/17 22:41> - Past Medical History Anemia: No Asthma: No Cancer: No Cardiac Disorders: (Afib) COPD: No Diabetes: Yes HTN: Yes Hypercholesterolemia: No - Surgical History Orthopedic Surgery: Yes - Suicide/Smoking/Psychosocial Hx Smoking History: Never smoked Have you smoked in the past 12 months: No Hx Alcohol Use: No Drug/Substance Use Hx: No Substance Use Type: None <Diann Bender - Last Filed: 05/10/17 23:02> - Past Medical History Allergies/Adverse Reactions: Allergies Allergy/AdvReac Type Severity Reaction Status Date / Time No Known Allergies Allergy Verified 05/10/17 21:17 Home Medications: Ambulatory Orders Walker [Ultra-Light Rollator] 1 each MC DAILY #1 each 03/19/17 Apixaban [Eliquis] 5 mg PO BID #60 tablet 04/16/17 Metformin HCl [Glucophage] 1,000 mg PO BID #60 tablet 04/16/17 Metoprolol Succinate 50 mg PO DAILY #30 tab.er.24h 04/16/17 Metoprolol Succinate [Toprol XL -] 50 mg PO BID 30 Days #60 tab.sr.24h 04/16/17 Sulfamethoxazole/Trimethoprim [Bactrim Ds Tablet] 1 each PO BID #14 tablet 05/10 Review of Systems - Review of Systems Able to Perform ROS?: Yes Comments:: 05/10/17 22:41 GENERAL/CONSTITUTIONAL: No fever or chills. No weakness. HEAD, EYES, EARS, NOSE AND THROAT: No change in vision. No ear pain or discharge. No sore throat. CARDIOVASCULAR: No chest pain or shortness of breath. RESPIRATORY: No cough, wheezing, or hemoptysis. GASTROINTESTINAL: No nausea, vomiting, diarrhea or constipation. GENITOURINARY: No dysuria, frequency, or change in urination. MUSCULOSKELETAL: No joint or muscle swelling or pain. No neck or back pain. SKIN: (+) Wound on plantar surface of left foot. NEUROLOGIC: No headache, vertigo, loss of consciousness, or change in strength/ sensation. ENDOCRINE: No increased thirst. No abnormal weight change. HEMATOLOGIC/LYMPHATIC: No anemia, easy bleeding, or history of blood clots. ALLERGIC/IMMUNOLOGIC: No hives or skin allergy. <Colton Ordaz - Last Filed: 05/10/17 22:41> *Physical Exam - Vital Signs Last Vital Signs Temp Pulse Resp BP Pulse Ox 98.3 F 99 H 16 105/72 99 05/10/17 21:17 05/10/17 21:17 05/10/17 21:17 05/10/17 21:17 05/10/17 21:17 - Physical Exam Comments: 05/10/17 22:41 GENERAL: Awake, alert, and fully oriented, in no acute distress HEAD: No signs of trauma EYES: PERRLA, EOMI, sclera anicteric, conjunctiva clear ENT: Auricles normal inspection, hearing grossly normal, nares patent, oropharynx clear without exudates. Moist mucosa NECK: Normal ROM, supple, no lymphadenopathy, JVD, or masses LUNGS: Breath sounds equal, clear to auscultation bilaterally. No wheezes, and no crackles HEART: Regular rate and rhythm, normal S1 and S2, no murmurs, rubs or gallops ABDOMEN: Soft, nontender, normoactive bowel sounds. No guarding, no rebound. No masses EXTREMITIES: Normal range of motion, no edema. No clubbing or cyanosis. No cords, erythema, or tenderness SKIN: (+) 4 cm thin avulsion on plantar surface of left foot, epidermis only. No signs of infection. No active bleeding. Healing scar from left toe amputation , no signs of infection. NEUROLOGICAL: Cranial nerves II through XII grossly intact. Normal speech. SKIN: Warm, Dry, normal turgor, no rashes or lesions noted. <Colton Ordaz - Last Filed: 05/10/17 22:41> - Vital Signs Last Vital Signs Temp Pulse Resp BP Pulse Ox 98.3 F 99 H 16 105/72 99 05/10/17 21:17 05/10/17 21:17 05/10/17 21:17 05/10/17 21:17 05/10/17 21:17 <Diann Bender - Last Filed: 05/10/17 23:02> ED Treatment Course - LABORATORY CBC & Chemistry Diagram: 05/10/17 21:26 05/10/17 21:26 - ADDITIONAL ORDERS Additional order review: Laboratory Results 05/10/17 21:26 Sodium 138 Potassium 4.4 Chloride 104 Carbon Dioxide 25 Anion Gap 9 BUN 25 H D Creatinine 1.1 D Creat Clearance w eGFR > 60 Random Glucose 163 H D Calcium 8.3 L Total Bilirubin 0.5 AST 23 D ALT 28 Alkaline Phosphatase 122 H D Total Protein 7.5 Albumin 4.1 05/10/17 21:26 RBC 3.94 L MCV 91.1 MCHC 33.7 RDW 13.5 MPV 9.5 Neutrophils % 59.3 Lymphocytes % 29.7 Monocytes % 9.0 Eosinophils % 1.7 Basophils % 0.3 <Colton Ordaz - Last Filed: 05/10/17 22:41> - LABORATORY CBC & Chemistry Diagram: 05/10/17 21:26 05/10/17 21:26 <Diann Bender - Last Filed: 05/10/17 23:02> Medical Decision Making - Medical Decision Making 05/10/17 22:34 Pt presents to the ED complaining of wound to his left foot. Does not recall injuring his foot. Denies fever, nausea and vomiting or bleeding. On examination, there is a superficial skin avulsion to the plantar surface of the foot. The avulsion is too superficial for sutures, but will treat with bacitracin and PO antibiotics to prevent infection. Patient will see his lodging facilities manager this week. <Diann Bender - Last Filed: 05/10/17 23:02> *DC/Admit/Observation/Transfer - Attestations Scribe Attestion: 05/10/17 22:42 Documentation prepared by Colton Ordaz, acting as director medical safety for Diann Bender MD. <Colton Ordaz - Last Filed: 05/10/17 22:41> - Discharge Dispostion Admit: No <Diann Bender - Last Filed: 05/10/17 23:02> Diagnosis at time of Disposition: Wound, open, foot Qualifiers: Encounter type: initial encounter Laterality: left Qualified Code(s): S91.302A - Unspecified open wound, left foot, initial encounter - Discharge Dispostion Disposition: HOME Condition at time of disposition: Good - Prescriptions Prescriptions: Sulfamethoxazole/Trimethoprim [Bactrim Ds Tablet] 1 each PO BID #14 tablet - Patient Instructions Printed Discharge Instructions: Skin Wound Additional Instructions: return to the ED for fever, nausea and vomiting, worsening pain, red hot tender swollen foot, pus from wound. Wash the wound with soap and water several times a day. keep a dressing over the wound, change the dressing whenever it becomes wet or soiled. Make sure you see your lodging facilities manager within one week.
[2017-05-10 21:45] LABS: BASO % 0.3 % (0-2.0); EOS % 1.7 % (0-4.5); HEMATOCRIT 35.9 % (35.4-49); HEMOGLOBIN 12.1 GM/dL (11.7-16.9); LYMPH % 29.7 % (8-40); MCH 30.7 pg (25.7-33.7); MCHC 33.7 g/dl (32.0-35.9); MEAN CELL VOLUME 91.1 fl (80-96); MEAN PLT VOLUME 9.5 fl (7.5-11.1); NEUT % 59.3 % (42.8-82.8); PLATELET COUNT 211 K/MM3 (134-434); RBC 3.94 M/mm3 (4.00-5.60); RDW 13.5 % (11.9-15.9); WHITE BLOOD COUNT 6.8 K/mm3 (4.0-10.0)
[2017-05-10] MEDS: BACITRACIN 15 GM TUBE TOPICAL OINTMENT TP ONE ×2 (22:20→22:51)
[2017-05-10 22:24] LABS: ALBUMIN 4.1 g/dl (3.4-5.0); ALK PHOS 122 U/L (45-117); ANION GAP 9 (8-16); BILIRUBIN,TOTAL 0.5 mg/dL (0.2-1.0); BLOOD UREA NITROGEN 25 mg/dL (7-18); CALCIUM 8.3 mg/dL (8.5-10.1); CHLORIDE 104 mmol/L (98-107); CO2 25 mmol/L (21-32); CREATININE 1.1 mg/dL (0.7-1.3); GLUCOSE,RANDOM 163 mg/dL (74-106); POTASSIUM 4.4 mmol/L (3.5-5.1); SGOT/AST 23 U/L (15-37); SGPT/ALT 28 U/L (12-78); SODIUM 138 mmol/L (136-145); TOT PROT 7.5 g/dl (6.4-8.2)
== END 2017-05-10 23:30 | disposition home or self-care (01) ==
LOC: JER 20:59
DX: S91.302A Unspecified open wound, left foot, initial encounter (principal); X58.XXXA Exposure to other specified factors, initial encounter; Y93.89 Activity, other specified; Y92.89 Other specified places as the place of occurrence of the external cause; Y99.8 Other external cause status; Z89.412 Acquired absence of left great toe; E11.9 Type 2 diabetes mellitus without complications; Z79.84 Long term (current) use of oral hypoglycemic drugs; I48.91 Unspecified atrial fibrillation; Z79.01 Long term (current) use of anticoagulants
CPT/HCPCS: 36415; 80053; 83036; 85025; 99282-25

== ENCOUNTER 2017-05-25 17:38 | Emergency (ER) | payer OTHER ==
--- NOTE | 2017-05-25 17:43 | PDOC ---
Rapid Medical Evaluation Time Seen by Provider: 05/25/17 17:38 Medical Evaluation: Allergies Allergy/AdvReac Type Severity Reaction Status Date / Time No Known Allergies Allergy Verified 05/10/17 21:17 05/25/17 17:39 I have performed a brief in-person evaluation of this patient. The patient presents with a chief complaint of: left foot pain Pertinent physical exam findings: Healthy appearing open wound to plantar surface of left foot I have ordered the following: nothing The patient will proceed to the ED for further evaluation. Discharge Disposition - Diagnosis Wound, open, foot - Referrals - Patient Instructions - Post Discharge Activity
[2017-05-25 17:45] VITALS: BP 101/58; PULSE 100; TEMP 97.9; BMI 29.2
--- NOTE | 2017-05-25 19:05 | PDOC ---
Suture Removal/Wound Check HPI - History of Present Illness Chief Complaint: Pain Stated Complaint: CYST Time Seen by Provider: 05/25/17 17:38 History Source: Yes: Patient Exam Limitations: Yes: No Limitations Treated at: [facility] ED - Previous ED Treatment Type of procedure performed on last visit: Yes: I&D of Abscess, Other, Skin Ulcer Dressing - Onset of Previous Treatment Comment:: 05/25/17 19:14 Patient came for evaluation of foot wound. Was seen here on May 10 and prescribed antibiotics. Since then has been following up with various doctors and dressing wound at home by self. Denies fevers, purulent drainage, or worsened pain. 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 Is to follow-up at wound care center however patient was unclear as to number or when timeframe would've been. Past History - Travel Traveled outside of the country in the last 30 days: No Close contact w/someone who was outside of country & ill: No - Past Medical History Allergies/Adverse Reactions: Allergies Allergy/AdvReac Type Severity Reaction Status Date / Time No Known Allergies Allergy Verified 05/25/17 17:43 Home Medications: Ambulatory Orders Walker [Ultra-Light Rollator] 1 each MC DAILY #1 each 03/19/17 Apixaban [Eliquis] 5 mg PO BID #60 tablet 04/16/17 Metformin HCl [Glucophage] 1,000 mg PO BID #60 tablet 04/16/17 Metoprolol Succinate 50 mg PO DAILY #30 tab.er.24h 04/16/17 Metoprolol Succinate [Toprol XL -] 50 mg PO BID 30 Days #60 tab.sr.24h 04/16/17 Sulfamethoxazole/Trimethoprim [Bactrim Ds Tablet] 1 each PO BID #14 tablet 05/10 Metoprolol Succinate 50 mg PO DAILY #7 tab.er.24h 05/25/17 Anemia: No Asthma: No Cancer: No Cardiac Disorders: (Afib) CVA: No COPD: No DVT: No Dementia: No Diabetes: Yes Dialysis: No GI Disorders: No Disorders: No HTN: Yes Hypercholesterolemia: No Kidney Stones: No Liver Disease: No Psychiatric Problems: No Seizures: No Thyroid Disease: No Lung CA: No - Surgical History Orthopedic Surgery: Yes - Suicide/Smoking/Psychosocial Hx Smoking History: Never smoked Have you smoked in the past 12 months: No Hx Alcohol Use: No Drug/Substance Use Hx: No Substance Use Type: None Suture Removal/Wound Check PE - Physical Exam Laceration/Wound Check Symptoms: reports: None. denies: Fever, Chills Current Severity Level: None Maximum Severity Level: None Pain Localization: None Location of Laceration/Wound: left: Foot (2 cm x 3 cm open lesion with good granulating tissue noted to the plantar aspect of left foot midpoint. No fluctuance, no drainage, no erythema or swelling. Healing well) *Review of Systems - Review of Systems Able to Perform ROS?: Yes Constitutional: Yes: Symptoms Reported, See HPI. No: Malaise HEENTM: No: Symptoms Reported Respiratory: Yes: See HPI, Cough Musculoskeletal: Yes: Symptoms Reported Integumentary: Yes: Symptoms Reported, See HPI, Other (left foot with healing wounds from partial amputation and diabetic ulcer treatment) All Other Systems: Reviewed and Negative *DC/Admit/Observation/Transfer Diagnosis at time of Disposition: Visit for wound check - Discharge Dispostion Disposition: HOME Condition at time of disposition: Stable Admit: No - Referrals - Patient Instructions Printed Discharge Instructions: Skin Wound Additional Instructions: Keep foot elevated, change dressing daily as instructed Call wound center tomorrow wound care center [phone] for appointment tomorrow for continuous wound care ReTurn to emergency department for , pain, redness, streaking or problems - Post Discharge Activity
== END 2017-05-25 19:19 | disposition home or self-care (01) ==
LOC: JERFT 17:38
DX: Z09 Encounter for follow-up examination after completed treatment for conditions other than malignant neoplasm (principal); Z89.422 Acquired absence of other left toe(s); I48.91 Unspecified atrial fibrillation; Z79.01 Long term (current) use of anticoagulants; E13.622 Other specified diabetes mellitus with other skin ulcer; I10 Essential (primary) hypertension
CPT/HCPCS: 99281-25

== ENCOUNTER 2017-06-10 18:17 | Emergency (ER) | payer OTHER ==
[2017-06-10 18:31] VITALS: BP 130/54; PULSE 100; TEMP 98.6; BMI 27.4
--- NOTE | 2017-06-10 18:33 | PDOC ---
Rapid Medical Evaluation Time Seen by Provider: 06/10/17 18:28 Medical Evaluation: Allergies Allergy/AdvReac Type Severity Reaction Status Date / Time No Known Allergies Allergy Verified 05/25/17 17:43 06/10/17 18:28 The patient presents with a chief complaint of: left foot pain that is chronic and looking for pain medication I have performed a brief in-person evaluation of this patient; Pertinent physical exam findings: ambulatory, in no respiratory distress I have ordered the following: chronic pain to the foot, seeking pain medication , no orders needed now. The patient will proceed to the ED for further evaluation.
--- NOTE | 2017-06-10 20:03 | PDOC ---
History of Present Illness - General Chief Complaint: Pain, Acute Stated Complaint: INFECTION ON LT LEG Time Seen by Provider: 06/10/17 18:28 Past History - Past Medical History Allergies/Adverse Reactions: Allergies Allergy/AdvReac Type Severity Reaction Status Date / Time No Known Allergies Allergy Verified 06/10/17 18:29 Home Medications: Ambulatory Orders Apixaban [Eliquis] 5 mg PO BID #60 tablet 04/16/17 Metformin HCl [Glucophage] 1,000 mg PO BID #60 tablet 04/16/17 Metoprolol Succinate [Toprol XL -] 50 mg PO BID 30 Days #60 tab.sr.24h 04/16/17 Acetaminophen [Tylenol] 650 mg PO Q4H #30 tablet 06/10/17 Cephalexin Monohydrate [Keflex -] 500 mg PO BID 06/10/17 Cephalexin Monohydrate [Keflex -] 500 mg PO BID #14 capsule 06/10/17 Sulfamethoxazole/Trimethoprim [Bactrim Ds -] 2 tab PO BID #28 tablet 06/10/17 Anemia: No Asthma: No Cancer: No Cardiac Disorders: (Afib) CVA: No COPD: No DVT: No Dementia: No Diabetes: Yes Dialysis: No GI Disorders: No Disorders: No HTN: Yes Hypercholesterolemia: No Kidney Stones: No Liver Disease: No Psychiatric Problems: No Seizures: No Thyroid Disease: No Lung CA: No - Surgical History Orthopedic Surgery: Yes - Suicide/Smoking/Psychosocial Hx Smoking History: Never smoked Have you smoked in the past 12 months: No Hx Alcohol Use: No Drug/Substance Use Hx: No Substance Use Type: None *Physical Exam - Vital Signs Last Vital Signs Temp Pulse Resp BP Pulse Ox 98.6 F 100 H 20 130/54 100 06/10/17 18:29 06/10/17 18:29 06/10/17 18:29 06/10/17 18:29 06/10/17 18:29 ED Treatment Course - RADIOLOGY Radiology Studies Ordered: Category Date Time Status FOOT-LEFT [RAD] Stat Radiology 06/10/17 19:51 Ordered DUPLEX VASCUL US-1 LEG [US] Stat Ultrasound 06/10/17 19:54 Ordered *DC/Admit/Observation/Transfer Diagnosis at time of Disposition: Wound infection Foot ulcer Qualifiers: Laterality: left Non-pressure ulcer stage: with fat layer exposed Qualified Code(s): L97.522 - Non-pressure chronic ulcer of other part of left foot with fat layer exposed - Discharge Dispostion Disposition: HOME Condition at time of disposition: Stable Admit: No - Referrals Referrals: Cristi Alvarado MD [Staff Physician] - - Patient Instructions Printed Discharge Instructions: DI for Wound Infection Additional Instructions: You have a wound infection. Please take the antibiotics as prescribed. Please take 2 Bactrim tablets twice a day for one week. Please take one Keflex tablet twice a day for one week. You need to follow-up with Dr. Thacker tomorrow. Return to the emergency department if you have worsening pain, fevers, chills, worsening pain, or have any changes in your symptoms. Tienes mariana infeccin en la herida. Por favor tome los antibiticos segn lo prescrito. Por favor, tome 2 tabletas Bactrim dos veces al da deepthi mariana semana. Por favor, tome mariana tableta Keflex dos veces al da deepthi mariana semana. Necesitas hacer un seguimiento con el Dr. Kedar james. Regrese al servicio de urgencias si tiene un empeoramiento del dolor, fiebre, escalofros, empeoramiento del dolor o cambios en los sntomas. - Post Discharge Activity
[2017-06-10] MEDS ORDERED: CEPHALEXIN MONOHYDRATE 500 MG CAPSULE (UD) PO ONE (22:47)
[2017-06-10] MEDS ORDERED: ACETAMINOPHEN 325 MG TABLET (FP) PO ONE (22:48)
[2017-06-10] MEDS ORDERED: SULFAMETHOXAZOLE/TRIMETHOPRIM 800MG/160MG D.S. TABLET PO ONE (22:48)
[2017-06-10] MEDS ORDERED: SULFAMETHOXAZOLE/TRIMETHOPRIM 800MG/160MG D.S. TABLET ONE (22:49)
[2017-06-10] MEDS ORDERED: ACETAMINOPHEN 325 MG TABLET (FP) ONE (22:49)
[2017-06-10] MEDS ORDERED: CEPHALEXIN MONOHYDRATE 500 MG CAPSULE (UD) ONE (22:50)
== END 2017-06-10 22:52 | disposition home or self-care (01) ==
LOC: JERFT 18:17
DX: L97.522 Non-pressure chronic ulcer of other part of left foot with fat layer exposed (principal); I10 Essential (primary) hypertension; I48.91 Unspecified atrial fibrillation; E11.9 Type 2 diabetes mellitus without complications
CPT/HCPCS: 73630-TC-LT; 87070; 87186; 87205; 93971-TC; 99281-25

== ENCOUNTER 2017-06-14 11:13 | Inpatient (IN) | payer OTHER ==
[2017-06-14 11:49] VITALS: BMI 25.7
[2017-06-14] MEDS ORDERED: CLINDAMYCIN 600MG PREMIX IVPB 600 MG/50 ML BAG IVPB ONE ×2 (12:20→13:58)
[2017-06-14] MEDS ORDERED: SODIUM CHLORIDE 1,000 ML IV STA (12:21)
[2017-06-14] MEDS ORDERED: morphine CARPU-JECT 4 MG/1 ML DISP.SYRIN IVPUSH ONE (12:21)
--- NOTE | 2017-06-14 12:32 | PDOC ---
History of Present Illness - General Chief Complaint: Wound Infection Stated Complaint: LT LEG WOUND Time Seen by Provider: 06/14/17 12:10 History Source: Patient - History of Present Illness Occurred: reports: other Severity: Yes: severe Lower Extremity Pain Location: left: foot Past History - Past Medical History Allergies/Adverse Reactions: Allergies Allergy/AdvReac Type Severity Reaction Status Date / Time No Known Allergies Allergy Verified 06/14/17 11:46 Home Medications: Ambulatory Orders Apixaban [Eliquis] 5 mg PO BID #60 tablet 04/16/17 Metformin HCl [Glucophage] 1,000 mg PO BID #60 tablet 04/16/17 Acetaminophen [Tylenol] 650 mg PO Q4H #30 tablet 06/10/17 Cephalexin Monohydrate [Keflex -] 500 mg PO BID #14 capsule 06/10/17 Sulfamethoxazole/Trimethoprim [Bactrim Ds -] 2 tab PO BID #28 tablet 06/10/17 Glipizide 5 mg PO DAILY 06/14/17 Anemia: No Asthma: No Cancer: No Cardiac Disorders: (Afib) CVA: No COPD: No DVT: No Dementia: No Diabetes: Yes Dialysis: No GI Disorders: No Disorders: No HTN: Yes Hypercholesterolemia: No Kidney Stones: No Liver Disease: No Psychiatric Problems: No Seizures: No Thyroid Disease: No Lung CA: No - Surgical History Orthopedic Surgery: Yes - Suicide/Smoking/Psychosocial Hx Smoking History: Never smoked Have you smoked in the past 12 months: No Hx Alcohol Use: No Drug/Substance Use Hx: No Substance Use Type: None Review of Systems - Review of Systems Constitutional: No: Chills, Fever, Malaise *Physical Exam - Vital Signs Last Vital Signs Temp Pulse Resp BP Pulse Ox 97.8 F 77 19 105/69 100 06/14/17 11:46 06/14/17 11:46 06/14/17 11:46 06/14/17 11:46 06/14/17 11:46 - Physical Exam General Appearance: Yes: Appropriately Dressed. No: Apparent Distress HEENT: positive: Normal Voice Neck: negative: Supple Respiratory/Chest: negative: Respiratory Distress Extremity: positive: Other (s/p amputation of L great toe w/ 2x2 cm chronic appearing ulcer to plantar aspect of L foot w/ sig ttp to site extending into medial ankle/leg, s/p R 3rd toe amp, no blisters/crepitus, pedal pulses intact) Integumentary: positive: Dry, Warm ED Treatment Course - LABORATORY CBC & Chemistry Diagram: 06/14/17 13:45 06/16/17 06:00 - RADIOLOGY Radiology Studies Ordered: Category Date Time Status FOOT-LEFT [RAD] Stat Radiology 06/14/17 12:20 Ordered Medical Decision Making - Medical Decision Making 06/14/17 12:26 51-year-old male history of [id number] diabetes, status post multiple toe amputations (performed by Dr Alvarado of podiatry), chronic ulcer to plantar aspect of left foot, here with worsening pain to l foot that radiates to medial ankle/leg. 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 Patient states he feels he needs to be admitted for IV antibiotics as pain has gotten worse. Has not noticed any redness and no fever or chills See exam Diabetic foot w/ possible infection On keflex/bactrim x 2 days w/ no relief No e/o nec fasc Pt well indigo and stable -pain control -IV abx -labs -xray -podiatry c/s -admit 06/14/17 14:35 Case d/w Dr Roca and patient admitted. Radha requesting that I placed consult for Dr. Starks of ID *DC/Admit/Observation/Transfer Diagnosis at time of Disposition: Diabetic foot infection - Discharge Dispostion Condition at time of disposition: Fair Admit: Yes - Referrals - Patient Instructions - Post Discharge Activity
[2017-06-14] MEDS ORDERED: morphine SULFATE 4 MG/ML VIAL ONE (13:50)
[2017-06-14 14:14] LABS: BASO % 0.5 % (0-2.0); EOS % 0.6 % (0-4.5); HEMATOCRIT 40.4 % (35.4-49); HEMOGLOBIN 13.9 GM/dL (11.7-16.9); LYMPH % 14.5 % (8-40); MCH 31.3 pg (25.7-33.7); MCHC 34.4 g/dl (32.0-35.9); MEAN CELL VOLUME 90.8 fl (80-96); MEAN PLT VOLUME 8.8 fl (7.5-11.1); MONO % 7.1 % (3.8-10.2); NEUT % 77.3 % (42.8-82.8); PLATELET COUNT 290 K/MM3 (134-434); RBC 4.45 M/mm3 (4.00-5.60); RDW 13.5 % (11.9-15.9)
[2017-06-14 14:17] LABS: ALBUMIN 4.1 g/dl (3.4-5.0); ANION GAP 10 (8-16); BLOOD UREA NITROGEN 10 mg/dL (7-18); CALCIUM 8.9 mg/dL (8.5-10.1); CHLORIDE 105 mmol/L (98-107); CO2 22 mmol/L (21-32); CREATININE 0.9 mg/dL (0.7-1.3); GLUCOSE,RANDOM 133 mg/dL (74-106); POTASSIUM 5.1 mmol/L (3.5-5.1); SGOT/AST 15 U/L (15-37); SGPT/ALT 22 U/L (12-78); SODIUM 137 mmol/L (136-145)
[2017-06-14 14:21] LABS: ALK PHOS 137 U/L (45-117); BILIRUBIN,TOTAL 0.3 mg/dL (0.2-1.0); TOT PROT 8.7 g/dl (6.4-8.2)
--- NOTE | 2017-06-14 15:46 | EKG ---
Test Reason : Blood Pressure : / mmHG Vent. Rate : 115 BPM Atrial Rate : 110 BPM P-R Int : 100 ms QRS Dur : 078 ms QT Int : 292 ms P-R-T Axes : 180 -09 -14 degrees QTc Int : 403 ms POOR DATA QUALITY, INTERPRETATION MAY BE ADVERSELY AFFECTED ATRIAL FIBRILLATION ABNORMAL ECG WHEN COMPARED WITH ECG OF 18-MAR-2017 03:18, COMPARED TO EKG NO SIGNIFICANT CHANGE IS FOUND Confirmed by JULIA BECKER, LEATHA ([id number]) on 06/14/2017 3:46:28 PM Referred By: Confirmed By:LEATHA DUMONT MD
--- NOTE | 2017-06-14 18:09 | HP ---
Admitting History and Physical - Primary Care Physician PCP: Shabbir Roca - Admission History of Present Illness: 51-year-old male history of cui-[id number] diabetes, status post multiple toe amputations (performed by Dr Alvarado of podiatry), chronic ulcer to plantar aspect of left foot, here with worsening pain to l foot that radiates to medial ankle/leg. 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 Patient states he feels he needs to be admitted for IV antibiotics as pain has gotten worse. Has not noticed any redness and no fever or chills - Past Medical History Cardiovascular: Yes: AFIB, HTN Infectious Disease: Yes: Other (osteomyelitis) Endocrine: Yes: Diabetes Mellitus - Past Surgical History Past Surgical History: Yes: Amputation (Lt 1st toe partial amputation, Lt 4th toe amputation) - Smoking History Smoking history: Never smoked Have you smoked in the past 12 months: No - Alcohol/Substance Use Hx Alcohol Use: No Home Medications - Allergies Allergies/Adverse Reactions: Allergies Allergy/AdvReac Type Severity Reaction Status Date / Time No Known Allergies Allergy Verified 06/14/17 11:46 - Home Medications Home Medications: Ambulatory Orders Apixaban [Eliquis] 5 mg PO BID #60 tablet 04/16/17 Metformin HCl [Glucophage] 1,000 mg PO BID #60 tablet 04/16/17 Acetaminophen [Tylenol] 650 mg PO Q4H #30 tablet 06/10/17 Cephalexin Monohydrate [Keflex -] 500 mg PO BID #14 capsule 06/10/17 Sulfamethoxazole/Trimethoprim [Bactrim Ds -] 2 tab PO BID #28 tablet 06/10/17 Glipizide 5 mg PO DAILY 06/14/17 Physical Examination Vital Signs: Vital Signs Temperature 98 F 06/14/17 15:52 Pulse Rate 97 H 06/14/17 15:52 Respiratory Rate 18 06/14/17 15:52 Blood Pressure 101/70 06/14/17 15:52 O2 Sat by Pulse Oximetry (%) 100 06/14/17 15:52 Constitutional: Yes: No Distress HENT: Yes: Atraumatic Neck: Yes: Supple Cardiovascular: Yes: Regular Rate and Rhythm Respiratory: Yes: CTA Bilaterally Gastrointestinal: Yes: Normal Bowel Sounds Extremities: Yes: Other (left foot in dressing) Edema: Yes Edema: LLE: 1+ (left foot) Neurological: Yes: Alert, Oriented Labs: CBC, BMP 06/14/17 13:45 06/14/17 13:45 Problem List - Problems (1) Afib Assessment/Plan: on eliquis Code(s): I48.91 - UNSPECIFIED ATRIAL FIBRILLATION (2) Diabetic foot infection Assessment/Plan: iv abx id consult wound care dressing change Code(s): E11.628 - TYPE 2 DIABETES MELLITUS WITH OTHER SKIN COMPLICATIONS; L08.9 - LOCAL INFECTION OF THE SKIN AND SUBCUTANEOUS TISSUE, UNSP (3) Cellulitis Assessment/Plan: iv abx cxs sent Code(s): L03.90 - CELLULITIS, UNSPECIFIED Qualifiers: Site of cellulitis: extremity Site of cellulitis of extremity: toe Laterality: left Qualified Code(s): L03.032 - Cellulitis of left toe (4) Foot ulcer Code(s): L97.509 - NON-PRESSURE CHRONIC ULCER OTH PRT UNSP FOOT W UNSP SEVERITY Qualifiers: Laterality: left Non-pressure ulcer stage: with fat layer exposed Qualified Code(s): L97.522 - Non-pressure chronic ulcer of other part of left foot with fat layer exposed (5) HTN (hypertension) Assessment/Plan: stable Code(s): I10 - ESSENTIAL (PRIMARY) HYPERTENSION (6) Diabetes Assessment/Plan: on po meds bgms Code(s): E11.9 - TYPE 2 DIABETES MELLITUS WITHOUT COMPLICATIONS Assessment/Plan Laboratory Tests 06/14/17 06/14/17 06/14/17 13:45 13:45 13:47 WBC 8.0 RBC 4.45 Hgb 13.9 D Hct 40.4 MCV 90.8 MCH 31.3 MCHC 34.4 RDW 13.5 Plt Count 290 D MPV 8.8 Neutrophils % 77.3 D Lymphocytes % 14.5 D Monocytes % 7.1 Eosinophils % 0.6 Basophils % 0.5 ESR 55 H Sodium 137 Potassium 5.1 Chloride 105 Carbon Dioxide 22 Anion Gap 10 BUN 10 D Creatinine 0.9 Creat Clearance w eGFR > 60 POC Glucometer Random Glucose 133 H Calcium 8.9 Total Bilirubin 0.3 D AST 15 D ALT 22 D Alkaline Phosphatase 137 H Creatine Kinase 63 Troponin I < 0.02 C-Reactive Protein 2.5 H Total Protein 8.7 H Albumin 4.1 06/14/17 06/14/17 06/15/17 13:47 18:45 05:44 WBC RBC Hgb Hct MCV MCH MCHC RDW Plt Count MPV Neutrophils % Lymphocytes % Monocytes % Eosinophils % Basophils % ESR Sodium Potassium Chloride Carbon Dioxide Anion Gap BUN Creatinine Creat Clearance w eGFR POC Glucometer 201 138 Random Glucose Calcium Total Bilirubin AST ALT Alkaline Phosphatase Creatine Kinase Troponin I C-Reactive Protein Cancelled Total Protein Albumin 06/15/17 17:39 WBC RBC Hgb Hct MCV MCH MCHC RDW Plt Count MPV Neutrophils % Lymphocytes % Monocytes % Eosinophils % Basophils % ESR Sodium Potassium Chloride Carbon Dioxide Anion Gap BUN Creatinine Creat Clearance w eGFR POC Glucometer 164 Random Glucose Calcium Total Bilirubin AST ALT Alkaline Phosphatase Creatine Kinase Troponin I C-Reactive Protein Total Protein Albumin Active Medications Generic Name Dose Route Start Last Admin Trade Name Freq PRN Reason Stop Dose Admin Acetaminophen 650 mg 06/14/17 18:12 Tylenol - PO Q6H PRN FEVER Apixaban 5 mg 06/14/17 22:00 06/15/17 09:40 Eliquis - PO 5 mg BID [facility] Administration Collagenase 1 applic 06/15/17 10:00 06/15/17 09:40 Santyl - TP 1 applic DAILY [facility] Administration Glipizide 5 mg 06/15/17 07:00 06/15/17 06:21 Glucotrol - PO 5 mg ACBK [facility] Administration Piperacillin Sod/Tazobactam 50 mls @ 100 mls/hr 06/15/17 14:30 06/15/17 17:52 Sod 3.375 gm/ Dextrose IVPB Not Given Q8H-IV TOS[facility] Protocol Metformin HCl 1,000 mg 06/14/17 18:30 06/15/17 17:40 Glucophage - PO 1,000 mg BIDAC [facility] Administration Oxycodone HCl 10 mg 06/14/17 22:51 Roxicodone - PO Q6H PRN PAIN LEVEL 4 - 6
[2017-06-14] MEDS ORDERED: ACETAMINOPHEN 325 MG TABLET (FP) PO PRN (18:12)
[2017-06-14] MEDS: metFORMIN HCL 500 MG TABLET (FP) PO SCH (18:45)
--- NOTE | 2017-06-14 21:06 | CON.ID ---
Consult Consult Specialty:: infectious diseases Reason for Consultation:: non healing wound - History of Present Illness Chief Complaint: non healing wound of the leg History of Present Illness: 51-year-old male history of [id number] diabetes, status post multiple toe amputations , chronic ulcer to plantar aspect of left foot, here with worsening pain to l foot that radiates to medial ankle/leg. 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 Patient states he feels he needs to be admitted for IV antibiotics as pain has gotten worse. Has not noticed any redness and no fever or chills wound seen and shows no discharge some redness surrounding the wound - History Source History Provided By: Patient Limitations to Obtaining History: No Limitations - Past Medical History Cardio/Vascular: Yes: AFIB, HTN Infectious Disease: Yes: Other (osteomyelitis) Endocrine: Yes: Diabetes Mellitus - Past Surgical History Past Surgical History: Yes: Amputation (Lt 1st toe partial amputation, Lt 4th toe amputation) - Alcohol/Substance Use Hx Alcohol Use: No - Smoking History Smoking history: Never smoked Have you smoked in the past 12 months: No Home Medications - Allergies Allergies/Adverse Reactions: Allergies Allergy/AdvReac Type Severity Reaction Status Date / Time No Known Allergies Allergy Verified 06/14/17 11:46 - Home Medications Home Medications: Ambulatory Orders Apixaban [Eliquis] 5 mg PO BID #60 tablet 04/16/17 Metformin HCl [Glucophage] 1,000 mg PO BID #60 tablet 04/16/17 Acetaminophen [Tylenol] 650 mg PO Q4H #30 tablet 06/10/17 Cephalexin Monohydrate [Keflex -] 500 mg PO BID #14 capsule 06/10/17 Sulfamethoxazole/Trimethoprim [Bactrim Ds -] 2 tab PO BID #28 tablet 06/10/17 Glipizide 5 mg PO DAILY 06/14/17 Review of Systems - Review of Systems Constitutional: reports: No Symptoms Eyes: reports: No Symptoms HENT: reports: No Symptoms Neck: reports: No Symptoms Cardiovascular: reports: No Symptoms Respiratory: reports: No Symptoms Gastrointestinal: reports: No Symptoms Genitourinary: reports: No Symptoms Musculoskeletal: reports: No Symptoms Integumentary: reports: Wound (left plantar aspect) Neurological: reports: No Symptoms Endocrine: reports: No Symptoms Hematology/Lymphatic: reports: No Symptoms Psychiatric: reports: No Symptoms Physical Exam Vital Signs: Vital Signs Temperature 99.6 F 06/14/17 20:45 Pulse Rate 102 H 06/14/17 20:45 Respiratory Rate 20 06/14/17 20:45 Blood Pressure 109/63 06/14/17 20:45 O2 Sat by Pulse Oximetry (%) 100 06/14/17 15:52 Constitutional: Yes: Well Nourished, Calm, Mild Distress Eyes: Yes: Conjunctiva Clear Neck: Yes: Supple, Trachea Midline Cardiovascular: Yes: Pulse Irregular Respiratory: Yes: Regular, CTA Bilaterally Gastrointestinal: Yes: Normal Bowel Sounds, Soft Musculoskeletal: Yes: WNL Extremities: Yes: Other Wound/Incision: Yes: Other (There is a sub-2nd/3rd metatarsal diabetic ulcer with mixed fibrogranular base, hyperkeratotic borders, central aspect of ulcer probes to bone, no purulent drainage, serosanguinous drainage, no fluctuance, no periwound erythema, no ascending cellulitis, no active signs of infection. Minimal tenderness to palpation.) Neurological: Yes: Alert, Oriented Psychiatric: Yes: Alert, Oriented Labs: CBC, BMP 06/14/17 13:45 06/14/17 13:45 Imaging - Results Chest X-ray: Report Reviewed, Image Reviewed X-ray: Report Reviewed, Image Reviewed Assessment/Plan Problem List - Problems (1) Afib Assessment/Plan: on eliquis Code(s): I48.91 - UNSPECIFIED ATRIAL FIBRILLATION (2) Diabetic foot infection Assessment/Plan: iv abx id consult wound care dressing change Code(s): E11.628 - TYPE 2 DIABETES MELLITUS WITH OTHER SKIN COMPLICATIONS; L08.9 - LOCAL INFECTION OF THE SKIN AND SUBCUTANEOUS TISSUE, UNSP (3) Cellulitis Assessment/Plan: iv abx cxs sent Code(s): L03.90 - CELLULITIS, UNSPECIFIED Qualifiers: Site of cellulitis: extremity Site of cellulitis of extremity: toe Laterality: left Qualified Code(s): L03.032 - Cellulitis of left toe (4) Foot ulcer Code(s): L97.509 - NON-PRESSURE CHRONIC ULCER OTH PRT UNSP FOOT W UNSP SEVERITY Qualifiers: Laterality: left Non-pressure ulcer stage: with fat layer exposed Qualified Code(s): L97.522 - Non-pressure chronic ulcer of other part of left foot with fat layer exposed (5) HTN (hypertension) Assessment/Plan: stable Code(s): I10 - ESSENTIAL (PRIMARY) HYPERTENSION (6) Diabetes Assessment/Plan: on po meds bgms Code(s): E11.9 - TYPE 2 DIABETES MELLITUS WITHOUT COMPLICATIONS plan podiatry to see the patient once podiatry sees the patient will discuss for need of re imaging natali neri r/o osteo
[2017-06-14] MEDS: APIXABAN 5 MG TABLET PO SCH (21:14)
[2017-06-14] MEDS ORDERED: oxyCODONE HCL 5 MG TABLET PO PRN (22:51)
[2017-06-15] MEDS: metFORMIN HCL 500 MG TABLET (FP) PO SCH ×2 (06:21→17:40)
[2017-06-15] MEDS: glipiZIDE 5 MG TABLET (FP) PO SCH (06:21)
--- NOTE | 2017-06-15 08:57 | PN ---
Progress Note (short form) - Note Progress Note: Podiatry Consultation: 51 year old IDDM M well known to me from prior admissions presents with L plantar forefoot diabetic ulcer x 3 months. Patient seen in medicine clinic for management of DM and Afib. Patient's medical team noted worsening of ulcer in clinic and suspicion of osteomyelitis which prompted hospital admission. He denies F/V/N/C/SOB/CP. He is afebrile with VSS. To his own admission the patient has not minimized his weightbearing and his sugars are still elevated at home. He has had multiple amputations including the hallux and fourth digit , done by myself and at [facility]. PMHx: IDDM, HTN, Afib on AC Meds: noted ALL: NKMA WILLIAM: L foot: pedal pulses palpable, TG wnl, CFT brisk to remaining toes. There is a sub-2nd/3rd metatarsal diabetic ulcer with mixed fibrogranular base, hyperkeratotic borders, central aspect of ulcer probes to bone, no purulent drainage, serosanguinous drainage, no fluctuance, no periwound erythema, no ascending cellulitis, no active signs of infection. Minimal tenderness to palpation. WBC: 8.0 ESR: 55 L foot XR: ?osseus erosion 2nd and 3rd MTPJ with contracture and subluxation of 2nd/3rd digits Imp: 51 year old IDDM with L foot DFU, rule out osteomyelitis 1. IV abx per ID 2. Deep wound culture taken at bedside; Rx santyl for local wound care 3. Needs surgical offloading shoe 4. Recommend MRI L foot to evaluate for osteomyelitis 5. If (+) needs IV abx treatment per Infectious Disease 6. Thank you for the courtesy of this consultation. Jimmie Alvarado DPM
[2017-06-15] MEDS ORDERED: PT OWN MED DRAWER 7, Y5N ONE ×2 (09:39→17:55)
[2017-06-15] MEDS: APIXABAN 5 MG TABLET PO SCH ×2 (09:40→21:51)
[2017-06-15] MEDS: COLLAGENASE CLOSTRIDIUM HIST. 30 GRAMS TUBE TP SCH (09:40)
--- NOTE | 2017-06-15 12:48 | EKG ---
Test Reason : Blood Pressure : / mmHG Vent. Rate : 111 BPM Atrial Rate : 147 BPM P-R Int : 210 ms QRS Dur : 074 ms QT Int : 312 ms P-R-T Axes : 094 -11 -04 degrees QTc Int : 424 ms ATRIAL FIBRILLATION WHEN COMPARED WITH ECG OF 14-JUN-2017 13:38, NORMAL SINUS RHYTHM 0CC PREMATURE VENTRICULAR COMPLEXES NO SIGNIFICANT CHANGE FROM PREVIOUS EKG Confirmed by MD AUGUSTIN, GENEVIEVE ([id number]) on 06/15/2017 12:48:35 PM Referred By: Confirmed By:GENEVIEVE RUFFIN MD
--- NOTE | 2017-06-15 13:55 | PN ---
Progress Note, Physician History of Present Illness: seen by podiatry no active intervention at this time cx taken patient feels better - Current Medication List Current Medications: Active Medications Acetaminophen (Tylenol -) 650 mg PO Q6H PRN PRN Reason: FEVER Apixaban (Eliquis -) 5 mg PO BID [facility] Last Admin: 06/15/17 09:40 Dose: 5 mg Collagenase (Santyl -) 1 applic TP DAILY [facility] Last Admin: 06/15/17 09:40 Dose: 1 applic Glipizide (Glucotrol -) 5 mg PO ACBK [facility] Last Admin: 06/15/17 06:21 Dose: 5 mg Metformin HCl (Glucophage -) 1,000 mg PO BIDAC [facility] Last Admin: 06/15/17 06:21 Dose: 1,000 mg Oxycodone HCl (Roxicodone -) 10 mg PO Q6H PRN PRN Reason: PAIN LEVEL 4 - 6 - Objective Vital Signs: Vital Signs Temperature 97.9 F 06/15/17 10:00 Pulse Rate 102 H 06/15/17 10:00 Respiratory Rate 20 06/15/17 10:00 Blood Pressure 113/56 06/15/17 10:00 O2 Sat by Pulse Oximetry (%) 100 06/14/17 15:52 Constitutional: Yes: No Distress, Calm HENT: Yes: Atraumatic Cardiovascular: Yes: Pulse Irregular Respiratory: Yes: Regular, CTA Bilaterally Musculoskeletal: Yes: WNL Extremities: Yes: Other Wound/Incision: Yes: Dressing Dry and Intact Neurological: Yes: Alert, Oriented Psychiatric: Yes: Alert, Oriented Labs: CBC, BMP 06/14/17 13:45 06/14/17 13:45 Assessment/Plan Problem List - Problems (1) Afib Code(s): I48.91 - UNSPECIFIED ATRIAL FIBRILLATION (2) Diabetic foot infection Code(s): E11.628 - TYPE 2 DIABETES MELLITUS WITH OTHER SKIN COMPLICATIONS; L08.9 - LOCAL INFECTION OF THE SKIN AND SUBCUTANEOUS TISSUE, UNSP (3) Cellulitis Code(s): L03.90 - CELLULITIS, UNSPECIFIED Qualifiers: Site of cellulitis: extremity Site of cellulitis of extremity: toe Laterality: left Qualified Code(s): L03.032 - Cellulitis of left toe (4) Foot ulcer Code(s): L97.509 - NON-PRESSURE CHRONIC ULCER OTH PRT UNSP FOOT W UNSP SEVERITY Qualifiers: Laterality: left Non-pressure ulcer stage: with fat layer exposed Qualified Code(s): L97.522 - Non-pressure chronic ulcer of other part of left foot with fat layer exposed (5) HTN (hypertension) Code(s): I10 - ESSENTIAL (PRIMARY) HYPERTENSION plan will start patient on abx await for cx report rest as per primary dressing wound care
[2017-06-15] MEDS: PIPERACILLIN/TAZOB 3.375 GM 3.375 GM in DEXTROSE 5%-WATER - 50 ML IVPB SCH ×2 (15:46→17:52)
--- NOTE | 2017-06-15 18:21 | PN ---
Progress Note, Physician - Current Medication List Current Medications: Active Medications Acetaminophen (Tylenol -) 650 mg PO Q6H PRN PRN Reason: FEVER Apixaban (Eliquis -) 5 mg PO BID [facility] Last Admin: 06/15/17 09:40 Dose: 5 mg Collagenase (Santyl -) 1 applic TP DAILY [facility] Last Admin: 06/15/17 09:40 Dose: 1 applic Glipizide (Glucotrol -) 5 mg PO ACBK [facility] Last Admin: 06/15/17 06:21 Dose: 5 mg Piperacillin Sod/Tazobactam (Sod 3.375 gm/ Dextrose) 50 mls @ 100 mls/hr IVPB Q8H-IV [facility] PRN Reason: Protocol Last Admin: 06/15/17 17:52 Dose: Not Given Metformin HCl (Glucophage -) 1,000 mg PO BIDAC [facility] Last Admin: 06/15/17 17:40 Dose: 1,000 mg Oxycodone HCl (Roxicodone -) 10 mg PO Q6H PRN PRN Reason: PAIN LEVEL 4 - 6 - Objective Vital Signs: Vital Signs Temperature 99.6 F 06/15/17 14:16 Pulse Rate 114 H 06/15/17 14:16 Respiratory Rate 20 06/15/17 14:16 Blood Pressure 105/70 06/15/17 14:16 O2 Sat by Pulse Oximetry (%) 100 06/14/17 15:52 HENT: Yes: Atraumatic Neck: Yes: Supple Cardiovascular: Yes: Regular Rate and Rhythm Respiratory: Yes: CTA Bilaterally Gastrointestinal: Yes: Normal Bowel Sounds Extremities: Yes: Other (left foot cellulitis) Neurological: Yes: Alert, Oriented Labs: CBC, BMP 06/14/17 13:45 06/14/17 13:45 Problem List - Problems (1) Afib Assessment/Plan: on eliquis Code(s): I48.91 - UNSPECIFIED ATRIAL FIBRILLATION (2) Diabetic foot infection Assessment/Plan: iv abx id consult Code(s): E11.628 - TYPE 2 DIABETES MELLITUS WITH OTHER SKIN COMPLICATIONS; L08.9 - LOCAL INFECTION OF THE SKIN AND SUBCUTANEOUS TISSUE, UNSP (3) Cellulitis Assessment/Plan: iv abx cxs sent Code(s): L03.90 - CELLULITIS, UNSPECIFIED Qualifiers: Site of cellulitis: extremity Site of cellulitis of extremity: toe Laterality: left Qualified Code(s): L03.032 - Cellulitis of left toe (4) Foot ulcer Code(s): L97.509 - NON-PRESSURE CHRONIC ULCER OTH PRT UNSP FOOT W UNSP SEVERITY Qualifiers: Laterality: left Non-pressure ulcer stage: with fat layer exposed Qualified Code(s): L97.522 - Non-pressure chronic ulcer of other part of left foot with fat layer exposed (5) HTN (hypertension) Assessment/Plan: stable Code(s): I10 - ESSENTIAL (PRIMARY) HYPERTENSION (6) Diabetes Assessment/Plan: on po meds bgms Code(s): E11.9 - TYPE 2 DIABETES MELLITUS WITHOUT COMPLICATIONS
[2017-06-16] MEDS: PIPERACILLIN/TAZOB 3.375 GM 3.375 GM in DEXTROSE 5%-WATER - 50 ML IVPB SCH ×3 (01:47→18:52)
[2017-06-16] MEDS: metFORMIN HCL 500 MG TABLET (FP) PO SCH ×2 (06:31→17:15)
[2017-06-16] MEDS: glipiZIDE 5 MG TABLET (FP) PO SCH (06:31)
[2017-06-16 07:48] LABS: ALBUMIN 3.2 g/dl (3.4-5.0); ANION GAP 12 (8-16); BLOOD UREA NITROGEN 10 mg/dL (7-18); CALCIUM 8.5 mg/dL (8.5-10.1); CHLORIDE 104 mmol/L (98-107); CO2 22 mmol/L (21-32); CREATININE 0.7 mg/dL (0.7-1.3); GLUCOSE,RANDOM 183 mg/dL (74-106); POTASSIUM 4.2 mmol/L (3.5-5.1); SGOT/AST 12 U/L (15-37); SGPT/ALT 17 U/L (12-78); SODIUM 138 mmol/L (136-145)
[2017-06-16 07:49] LABS: ALK PHOS 128 U/L (45-117); BILIRUBIN,TOTAL 0.4 mg/dL (0.2-1.0); TOT PROT 7.3 g/dl (6.4-8.2)
[2017-06-16] MEDS ORDERED: PT OWN MED DRAWER 7, Y5N ONE ×3 (09:28→18:32)
[2017-06-16] MEDS: APIXABAN 5 MG TABLET PO SCH ×2 (09:30→21:27)
[2017-06-16 11:27] LABS: BASO % 0.6 % (0-2.0); EOS % 1.4 % (0-4.5); HEMATOCRIT 35.9 % (35.4-49); HEMOGLOBIN 12.7 GM/dL (11.7-16.9); LYMPH % 24.3 % (8-40); MCH 31.8 pg (25.7-33.7); MCHC 35.5 g/dl (32.0-35.9); MEAN CELL VOLUME 89.6 fl (80-96); MEAN PLT VOLUME 9.3 fl (7.5-11.1); MONO % 7.8 % (3.8-10.2); NEUT % 65.9 % (42.8-82.8); PLATELET COUNT 241 K/MM3 (134-434); RDW 13.4 % (11.9-15.9); WHITE BLOOD COUNT 5.8 K/mm3 (4.0-10.0)
--- NOTE | 2017-06-16 15:01 | PN ---
Progress Note, Physician History of Present Illness: patient doing well no complaints - Current Medication List Current Medications: Active Medications Acetaminophen (Tylenol -) 650 mg PO Q6H PRN PRN Reason: FEVER Apixaban (Eliquis -) 5 mg PO BID [facility] Last Admin: 06/16/17 09:30 Dose: 5 mg Collagenase (Santyl -) 1 applic TP DAILY [facility] Last Admin: 06/15/17 09:40 Dose: 1 applic Glipizide (Glucotrol -) 5 mg PO ACBK [facility] Last Admin: 06/16/17 06:31 Dose: 5 mg Piperacillin Sod/Tazobactam (Sod 3.375 gm/ Dextrose) 50 mls @ 100 mls/hr IVPB Q8H-IV [facility] PRN Reason: Protocol Last Admin: 06/16/17 09:30 Dose: 100 mls/hr Metformin HCl (Glucophage -) 1,000 mg PO BIDAC [facility] Last Admin: 06/16/17 06:31 Dose: 1,000 mg Oxycodone HCl (Roxicodone -) 10 mg PO Q6H PRN PRN Reason: PAIN LEVEL 4 - 6 - Objective Vital Signs: Vital Signs Temperature 98.0 F 06/16/17 06:00 Pulse Rate 96 H 06/16/17 06:00 Respiratory Rate 20 06/16/17 06:00 Blood Pressure 106/65 06/16/17 06:00 O2 Sat by Pulse Oximetry (%) 98 06/16/17 09:43 Constitutional: Yes: No Distress, Calm Cardiovascular: Yes: Pulse Irregular Respiratory: Yes: Regular, CTA Bilaterally Gastrointestinal: Yes: Normal Bowel Sounds, Soft Musculoskeletal: Yes: WNL Extremities: Yes: Other Wound/Incision: Yes: Dressing Dry and Intact Neurological: Yes: Alert, Oriented Psychiatric: Yes: Alert, Oriented Labs: CBC, BMP 06/16/17 06:00 06/16/17 06:00 Assessment/Plan Problem List - Problems (1) Afib Assessment/Plan: on eliquis Code(s): I48.91 - UNSPECIFIED ATRIAL FIBRILLATION (2) Diabetic foot infection Assessment/Plan: iv abx id consult wound care dressing change Code(s): E11.628 - TYPE 2 DIABETES MELLITUS WITH OTHER SKIN COMPLICATIONS; L08.9 - LOCAL INFECTION OF THE SKIN AND SUBCUTANEOUS TISSUE, UNSP (3) Cellulitis Assessment/Plan: iv abx cxs sent Code(s): L03.90 - CELLULITIS, UNSPECIFIED Qualifiers: Site of cellulitis: extremity Site of cellulitis of extremity: toe Laterality: left Qualified Code(s): L03.032 - Cellulitis of left toe (4) Foot ulcer Code(s): L97.509 - NON-PRESSURE CHRONIC ULCER OTH PRT UNSP FOOT W UNSP SEVERITY Qualifiers: Laterality: left Non-pressure ulcer stage: with fat layer exposed Qualified Code(s): L97.522 - Non-pressure chronic ulcer of other part of left foot with fat layer exposed (5) HTN (hypertension) Assessment/Plan: stable Code(s): I10 - ESSENTIAL (PRIMARY) HYPERTENSION (6) Diabetes Assessment/Plan: on po meds bgms Code(s): E11.9 - TYPE 2 DIABETES MELLITUS WITHOUT COMPLICATIONS plan continue abx will discuss with podiatry tomorrow if patient needs mri as i think this osteo as it probes to the bone await for wound cx rest as per podiatry
--- NOTE | 2017-06-16 17:00 | PN ---
Progress Note, Physician - Current Medication List Current Medications: Active Medications Acetaminophen (Tylenol -) 650 mg PO Q6H PRN PRN Reason: FEVER Apixaban (Eliquis -) 5 mg PO BID [facility] Last Admin: 06/16/17 09:30 Dose: 5 mg Collagenase (Santyl -) 1 applic TP DAILY [facility] Last Admin: 06/15/17 09:40 Dose: 1 applic Glipizide (Glucotrol -) 5 mg PO ACBK [facility] Last Admin: 06/16/17 06:31 Dose: 5 mg Piperacillin Sod/Tazobactam (Sod 3.375 gm/ Dextrose) 50 mls @ 100 mls/hr IVPB Q8H-IV [facility] PRN Reason: Protocol Last Admin: 06/16/17 09:30 Dose: 100 mls/hr Metformin HCl (Glucophage -) 1,000 mg PO BIDAC [facility] Last Admin: 06/16/17 06:31 Dose: 1,000 mg Oxycodone HCl (Roxicodone -) 10 mg PO Q6H PRN PRN Reason: PAIN LEVEL 4 - 6 - Objective Vital Signs: Vital Signs Temperature 98.9 F 06/16/17 14:15 Pulse Rate 105 H 06/16/17 14:15 Respiratory Rate 20 06/16/17 14:15 Blood Pressure 101/69 06/16/17 14:15 O2 Sat by Pulse Oximetry (%) 98 06/16/17 09:43 Constitutional: Yes: No Distress HENT: Yes: Atraumatic Neck: Yes: Supple Cardiovascular: Yes: Regular Rate and Rhythm Respiratory: Yes: CTA Bilaterally Gastrointestinal: Yes: Normal Bowel Sounds Extremities: Yes: Other (left foot in dressing) Neurological: Yes: Alert, Oriented Labs: CBC, BMP 06/16/17 06:00 06/16/17 06:00 Problem List - Problems (1) Afib Assessment/Plan: on eliquis Code(s): I48.91 - UNSPECIFIED ATRIAL FIBRILLATION (2) Diabetic foot infection Assessment/Plan: L foot iv abx id consult Code(s): E11.628 - TYPE 2 DIABETES MELLITUS WITH OTHER SKIN COMPLICATIONS; L08.9 - LOCAL INFECTION OF THE SKIN AND SUBCUTANEOUS TISSUE, UNSP (3) Cellulitis Assessment/Plan: iv abx cxs sent Code(s): L03.90 - CELLULITIS, UNSPECIFIED Qualifiers: Site of cellulitis: extremity Site of cellulitis of extremity: toe Laterality: left Qualified Code(s): L03.032 - Cellulitis of left toe (4) Foot ulcer Code(s): L97.509 - NON-PRESSURE CHRONIC ULCER OTH PRT UNSP FOOT W UNSP SEVERITY Qualifiers: Laterality: left Non-pressure ulcer stage: with fat layer exposed Qualified Code(s): L97.522 - Non-pressure chronic ulcer of other part of left foot with fat layer exposed (5) HTN (hypertension) Assessment/Plan: stable Code(s): I10 - ESSENTIAL (PRIMARY) HYPERTENSION (6) Diabetes Assessment/Plan: on po meds bgms Code(s): E11.9 - TYPE 2 DIABETES MELLITUS WITHOUT COMPLICATIONS
[2017-06-16] MEDS: COLLAGENASE CLOSTRIDIUM HIST. 30 GRAMS TUBE TP SCH (19:01)
[2017-06-17] MEDS: PIPERACILLIN/TAZOB 3.375 GM 3.375 GM in DEXTROSE 5%-WATER - 50 ML IVPB SCH ×3 (02:24→17:21)
[2017-06-17] MEDS: metFORMIN HCL 500 MG TABLET (FP) PO SCH ×2 (06:13→16:28)
[2017-06-17] MEDS: glipiZIDE 5 MG TABLET (FP) PO SCH (06:13)
[2017-06-17] MEDS: APIXABAN 5 MG TABLET PO SCH ×2 (09:48→21:11)
[2017-06-17] MEDS: COLLAGENASE CLOSTRIDIUM HIST. 30 GRAMS TUBE TP SCH (09:48)
[2017-06-17] MEDS ORDERED: PT OWN MED DRAWER 7, Y5N ONE ×3 (09:55→18:34)
--- NOTE | 2017-06-17 11:56 | PN ---
Progress Note, Physician History of Present Illness: patient stable no new issues wound looks good leg looks good - Current Medication List Current Medications: Active Medications Acetaminophen (Tylenol -) 650 mg PO Q6H PRN PRN Reason: FEVER Apixaban (Eliquis -) 5 mg PO BID [facility] Last Admin: 06/17/17 09:48 Dose: 5 mg Collagenase (Santyl -) 1 applic TP DAILY [facility] Last Admin: 06/17/17 09:48 Dose: 1 applic Glipizide (Glucotrol -) 5 mg PO ACBK [facility] Last Admin: 06/17/17 06:13 Dose: 5 mg Piperacillin Sod/Tazobactam (Sod 3.375 gm/ Dextrose) 50 mls @ 100 mls/hr IVPB Q8H-IV [facility] PRN Reason: Protocol Last Admin: 06/17/17 09:48 Dose: 100 mls/hr Metformin HCl (Glucophage -) 1,000 mg PO BIDAC [facility] Last Admin: 06/17/17 06:13 Dose: 1,000 mg Oxycodone HCl (Roxicodone -) 10 mg PO Q6H PRN PRN Reason: PAIN LEVEL 4 - 6 - Objective Vital Signs: Vital Signs Temperature 98.1 F 06/17/17 10:00 Pulse Rate 96 H 06/17/17 10:00 Respiratory Rate 18 06/17/17 10:00 Blood Pressure 130/67 06/17/17 10:00 O2 Sat by Pulse Oximetry (%) 98 06/16/17 21:00 Constitutional: Yes: No Distress, Calm HENT: Yes: Atraumatic Neck: Yes: Supple, Trachea Midline Cardiovascular: Yes: Regular Rate and Rhythm Respiratory: Yes: Regular, CTA Bilaterally Gastrointestinal: Yes: Normal Bowel Sounds, Soft Musculoskeletal: Yes: WNL Extremities: Yes: Other Wound/Incision: Yes: Dressing Dry and Intact Neurological: Yes: Alert, Oriented Psychiatric: Yes: Alert, Oriented Labs: CBC, BMP 06/16/17 06:00 06/16/17 06:00 Assessment/Plan Problem List - Problems (1) Afib Assessment/Plan: on eliquis Code(s): I48.91 - UNSPECIFIED ATRIAL FIBRILLATION (2) Diabetic foot infection Assessment/Plan: iv abx id consult wound care dressing change Code(s): E11.628 - TYPE 2 DIABETES MELLITUS WITH OTHER SKIN COMPLICATIONS; L08.9 - LOCAL INFECTION OF THE SKIN AND SUBCUTANEOUS TISSUE, UNSP (3) Cellulitis Assessment/Plan: iv abx cxs sent Code(s): L03.90 - CELLULITIS, UNSPECIFIED Qualifiers: Site of cellulitis: extremity Site of cellulitis of extremity: toe Laterality: left Qualified Code(s): L03.032 - Cellulitis of left toe (4) Foot ulcer Code(s): L97.509 - NON-PRESSURE CHRONIC ULCER OTH PRT UNSP FOOT W UNSP SEVERITY Qualifiers: Laterality: left Non-pressure ulcer stage: with fat layer exposed Qualified Code(s): L97.522 - Non-pressure chronic ulcer of other part of left foot with fat layer exposed (5) HTN (hypertension) Assessment/Plan: stable Code(s): I10 - ESSENTIAL (PRIMARY) HYPERTENSION (6) Diabetes Assessment/Plan: on po meds bgms Code(s): E11.9 - TYPE 2 DIABETES MELLITUS WITHOUT COMPLICATIONS osteo of the foot plan continue abx await for cx report once we have cx reports will send patient on abx will need abx for couple of weeks discussed with podiatry
--- NOTE | 2017-06-17 12:12 | PN ---
Progress Note (short form) - Note Progress Note: Podiatry F/U: Seen/evaluated at bedside, NAD. Pain minimal to L foot. Denies F/V/N/C/SOB/ CP. Afebrile, VSS. WILLIAM: L foot: pedal pulses palpable, TG wnl, CFT brisk to remaining toes. There is a sub-metatarsal diabetic ulcer with mixed fibrogranular base, hyperkeratotic borders, central aspect of ulcer probes to bone, no purulent drainage, no fluctuance, no periwound erythema, no ascending cellulitis, no signs of active infection. Minimal tenderness to palpation. WBC: 5.8 ESR: 55 Wound Cx: pending organism L foot XR: erosive changes third metatarsal consistent with osteomyelitis Imp: 51 year old poorly controlled DM M with L sub-metatarsal diabetic ulcer, clinical osteomyelitis 1. IV abx per Infectious Disease 2. Continue local wound care with santyl + DSD 3. Discussed case with Infectious Disease. 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 Discussed treatment optiosn with patient, will treat with [facility] IV abx. 4. Upon discharge will f/u in med clinic. 5. No surgical intervention. Jimmie Alvarado DPM
--- NOTE | 2017-06-17 18:52 | PN ---
Progress Note, Physician History of Present Illness: doing well - Current Medication List Current Medications: Active Medications Acetaminophen (Tylenol -) 650 mg PO Q6H PRN PRN Reason: FEVER Apixaban (Eliquis -) 5 mg PO BID [facility] Last Admin: 06/17/17 09:48 Dose: 5 mg Collagenase (Santyl -) 1 applic TP DAILY [facility] Last Admin: 06/17/17 09:48 Dose: 1 applic Glipizide (Glucotrol -) 5 mg PO ACBK [facility] Last Admin: 06/17/17 06:13 Dose: 5 mg Piperacillin Sod/Tazobactam (Sod 3.375 gm/ Dextrose) 50 mls @ 100 mls/hr IVPB Q8H-IV [facility] PRN Reason: Protocol Last Admin: 06/17/17 17:21 Dose: 100 mls/hr Metformin HCl (Glucophage -) 1,000 mg PO BIDAC [facility] Last Admin: 06/17/17 16:28 Dose: 1,000 mg Oxycodone HCl (Roxicodone -) 10 mg PO Q6H PRN PRN Reason: PAIN LEVEL 4 - 6 - Objective Vital Signs: Vital Signs Temperature 98.3 F 06/17/17 14:18 Pulse Rate 106 H 06/17/17 14:18 Respiratory Rate 20 06/17/17 14:18 Blood Pressure 102/60 06/17/17 14:18 O2 Sat by Pulse Oximetry (%) 98 06/17/17 09:00 Constitutional: Yes: No Distress HENT: Yes: Atraumatic Neck: Yes: Supple Cardiovascular: Yes: Regular Rate and Rhythm Respiratory: Yes: CTA Bilaterally Gastrointestinal: Yes: Normal Bowel Sounds Extremities: Yes: Other (L foot in dressing) Edema: LLE: Trace (left foot) Peripheral Pulses WNL: Yes Neurological: Yes: Alert, Oriented Labs: CBC, BMP 06/16/17 06:00 06/16/17 06:00 Problem List - Problems (1) Afib Assessment/Plan: on eliquis Code(s): I48.91 - UNSPECIFIED ATRIAL FIBRILLATION (2) Diabetic foot infection Assessment/Plan: L foot iv abx id consult Code(s): E11.628 - TYPE 2 DIABETES MELLITUS WITH OTHER SKIN COMPLICATIONS; L08.9 - LOCAL INFECTION OF THE SKIN AND SUBCUTANEOUS TISSUE, UNSP (3) Cellulitis Assessment/Plan: iv abx cxs seen..awaiting id input dc planning Code(s): L03.90 - CELLULITIS, UNSPECIFIED Qualifiers: Site of cellulitis: extremity Site of cellulitis of extremity: toe Laterality: left Qualified Code(s): L03.032 - Cellulitis of left toe (4) Foot ulcer Code(s): L97.509 - NON-PRESSURE CHRONIC ULCER OTH PRT UNSP FOOT W UNSP SEVERITY Qualifiers: Laterality: left Non-pressure ulcer stage: with fat layer exposed Qualified Code(s): L97.522 - Non-pressure chronic ulcer of other part of left foot with fat layer exposed (5) HTN (hypertension) Assessment/Plan: stable Code(s): I10 - ESSENTIAL (PRIMARY) HYPERTENSION (6) Diabetes Assessment/Plan: on po meds bgms Code(s): E11.9 - TYPE 2 DIABETES MELLITUS WITHOUT COMPLICATIONS
[2017-06-18] MEDS: PIPERACILLIN/TAZOB 3.375 GM 3.375 GM in DEXTROSE 5%-WATER - 50 ML IVPB SCH ×2 (01:25→09:30)
[2017-06-18] MEDS: glipiZIDE 5 MG TABLET (FP) PO SCH (06:27)
[2017-06-18] MEDS: metFORMIN HCL 500 MG TABLET (FP) PO SCH ×2 (06:27→17:17)
[2017-06-18] MEDS ORDERED: PT OWN MED DRAWER 7, Y5N ONE (09:18)
[2017-06-18] MEDS: APIXABAN 5 MG TABLET PO SCH ×2 (09:30→21:02)
[2017-06-18] MEDS: COLLAGENASE CLOSTRIDIUM HIST. 30 GRAMS TUBE TP SCH (09:33)
--- NOTE | 2017-06-18 11:34 | PN ---
Progress Note, Physician History of Present Illness: patient stable no issues leg looks good - Current Medication List Current Medications: Active Medications Acetaminophen (Tylenol -) 650 mg PO Q6H PRN PRN Reason: FEVER Apixaban (Eliquis -) 5 mg PO BID [facility] Last Admin: 06/18/17 09:30 Dose: 5 mg Collagenase (Santyl -) 1 applic TP DAILY [facility] Last Admin: 06/18/17 09:33 Dose: 1 applic Glipizide (Glucotrol -) 5 mg PO ACBK [facility] Last Admin: 06/18/17 06:27 Dose: 5 mg Ceftriaxone Sodium 1 gm/ (Dextrose) 50 mls @ 100 mls/hr IVPB DAILY [facility] Metformin HCl (Glucophage -) 1,000 mg PO BIDAC [facility] Last Admin: 06/18/17 06:27 Dose: 1,000 mg - Objective Vital Signs: Vital Signs Temperature 97.9 F 06/18/17 06:00 Pulse Rate 104 H 06/18/17 06:00 Respiratory Rate 18 06/18/17 06:00 Blood Pressure 124/60 06/18/17 06:00 O2 Sat by Pulse Oximetry (%) 98 06/17/17 21:00 Constitutional: Yes: No Distress, Calm Neck: Yes: Supple Cardiovascular: Yes: Regular Rate and Rhythm Respiratory: Yes: Regular, CTA Bilaterally Gastrointestinal: Yes: Normal Bowel Sounds, Soft Extremities: Yes: WNL Wound/Incision: Yes: Dressing Dry and Intact Neurological: Yes: Alert, Oriented Psychiatric: Yes: Alert, Oriented Labs: CBC, BMP 06/16/17 06:00 06/16/17 06:00 Assessment/Plan Problem List - Problems (1) Afib Assessment/Plan: on eliquis Code(s): I48.91 - UNSPECIFIED ATRIAL FIBRILLATION (2) Diabetic foot infection Assessment/Plan: iv abx id consult wound care dressing change Code(s): E11.628 - TYPE 2 DIABETES MELLITUS WITH OTHER SKIN COMPLICATIONS; L08.9 - LOCAL INFECTION OF THE SKIN AND SUBCUTANEOUS TISSUE, UNSP (3) Cellulitis Assessment/Plan: iv abx cxs sent Code(s): L03.90 - CELLULITIS, UNSPECIFIED Qualifiers: Site of cellulitis: extremity Site of cellulitis of extremity: toe Laterality: left Qualified Code(s): L03.032 - Cellulitis of left toe (4) Foot ulcer Code(s): L97.509 - NON-PRESSURE CHRONIC ULCER OTH PRT UNSP FOOT W UNSP SEVERITY Qualifiers: Laterality: left Non-pressure ulcer stage: with fat layer exposed Qualified Code(s): L97.522 - Non-pressure chronic ulcer of other part of left foot with fat layer exposed (5) HTN (hypertension) Assessment/Plan: stable Code(s): I10 - ESSENTIAL (PRIMARY) HYPERTENSION (6) Diabetes Assessment/Plan: on po meds bgms Code(s): E11.9 - TYPE 2 DIABETES MELLITUS WITHOUT COMPLICATIONS osteo of the foot plan continue abx await for cx report once we have cx reports will send patient on abx will need abx for couple of weeks discussed with podiatry
[2017-06-18] MEDS ORDERED: cefTRIAXone SODIUM 1 GM VIAL ONE (12:44)
[2017-06-18] MEDS ORDERED: DEXTROSE 5%-WATER - 50 ML IVPB ONE (12:45)
[2017-06-18] MEDS: CEFTRIAXONE 1 GM in DEXTROSE 5%-WATER - 50 ML IVPB SCH (12:48)
--- NOTE | 2017-06-18 19:13 | PN ---
Progress Note, Physician History of Present Illness: doing well - Current Medication List Current Medications: Active Medications Acetaminophen (Tylenol -) 650 mg PO Q6H PRN PRN Reason: FEVER Apixaban (Eliquis -) 5 mg PO BID [facility] Last Admin: 06/18/17 09:30 Dose: 5 mg Collagenase (Santyl -) 1 applic TP DAILY [facility] Last Admin: 06/18/17 09:33 Dose: 1 applic Glipizide (Glucotrol -) 5 mg PO ACBK [facility] Last Admin: 06/18/17 06:27 Dose: 5 mg Ceftriaxone Sodium 1 gm/ (Dextrose) 50 mls @ 100 mls/hr IVPB DAILY [facility] Last Admin: 06/18/17 12:48 Dose: 100 mls/hr Metformin HCl (Glucophage -) 1,000 mg PO BIDAC [facility] Last Admin: 06/18/17 17:17 Dose: 1,000 mg - Objective Vital Signs: Vital Signs Temperature 99.5 F 06/18/17 15:19 Pulse Rate 85 06/18/17 15:19 Respiratory Rate 91 H 06/18/17 15:19 Blood Pressure 102/56 06/18/17 15:19 O2 Sat by Pulse Oximetry (%) 100 06/18/17 09:00 Constitutional: Yes: No Distress HENT: Yes: Atraumatic Neck: Yes: Supple Cardiovascular: Yes: Regular Rate and Rhythm Respiratory: Yes: CTA Bilaterally Gastrointestinal: Yes: Normal Bowel Sounds Extremities: Yes: Other (left foot cellulitis) Peripheral Pulses WNL: Yes Neurological: Yes: Alert, Oriented Labs: CBC, BMP 06/16/17 06:00 06/16/17 06:00 Problem List - Problems (1) Afib Assessment/Plan: on eliquis Code(s): I48.91 - UNSPECIFIED ATRIAL FIBRILLATION (2) Diabetic foot infection Assessment/Plan: L foot iv abx id consult Code(s): E11.628 - TYPE 2 DIABETES MELLITUS WITH OTHER SKIN COMPLICATIONS; L08.9 - LOCAL INFECTION OF THE SKIN AND SUBCUTANEOUS TISSUE, UNSP (3) Cellulitis Assessment/Plan: iv abx cxs seen..awaiting id input dc planning Code(s): L03.90 - CELLULITIS, UNSPECIFIED Qualifiers: Site of cellulitis: extremity Site of cellulitis of extremity: toe Laterality: left Qualified Code(s): L03.032 - Cellulitis of left toe (4) Foot ulcer Code(s): L97.509 - NON-PRESSURE CHRONIC ULCER OTH PRT UNSP FOOT W UNSP SEVERITY Qualifiers: Laterality: left Non-pressure ulcer stage: with fat layer exposed Qualified Code(s): L97.522 - Non-pressure chronic ulcer of other part of left foot with fat layer exposed (5) HTN (hypertension) Assessment/Plan: stable Code(s): I10 - ESSENTIAL (PRIMARY) HYPERTENSION (6) Diabetes Assessment/Plan: on po meds bgms Code(s): E11.9 - TYPE 2 DIABETES MELLITUS WITHOUT COMPLICATIONS
[2017-06-19] MEDS: metFORMIN HCL 500 MG TABLET (FP) PO SCH ×2 (06:19→18:13)
[2017-06-19] MEDS: glipiZIDE 5 MG TABLET (FP) PO SCH (06:19)
[2017-06-19] MEDS ORDERED: PT OWN MED DRAWER 7, Y5N ONE (09:20)
[2017-06-19] MEDS ORDERED: cefTRIAXone SODIUM 1 GM VIAL ONE (09:20)
[2017-06-19] MEDS ORDERED: DEXTROSE 5%-WATER - 50 ML IVPB ONE (09:21)
[2017-06-19] MEDS: CEFTRIAXONE 1 GM in DEXTROSE 5%-WATER - 50 ML IVPB SCH (09:36)
[2017-06-19] MEDS: APIXABAN 5 MG TABLET PO SCH ×2 (09:37→22:10)
[2017-06-19] MEDS: COLLAGENASE CLOSTRIDIUM HIST. 30 GRAMS TUBE TP SCH (09:38)
--- NOTE | 2017-06-19 13:40 | PN ---
Progress Note, Physician History of Present Illness: doing well - Current Medication List Current Medications: Active Medications Acetaminophen (Tylenol -) 650 mg PO Q6H PRN PRN Reason: FEVER Apixaban (Eliquis -) 5 mg PO BID [facility] Last Admin: 06/19/17 09:37 Dose: 5 mg Collagenase (Santyl -) 1 applic TP DAILY [facility] Last Admin: 06/19/17 09:38 Dose: 1 applic Glipizide (Glucotrol -) 5 mg PO ACBK [facility] Last Admin: 06/19/17 06:19 Dose: 5 mg Ceftriaxone Sodium 1 gm/ (Dextrose) 50 mls @ 100 mls/hr IVPB DAILY [facility] Last Admin: 06/19/17 09:36 Dose: 100 mls/hr Metformin HCl (Glucophage -) 1,000 mg PO BIDAC [facility] Last Admin: 06/19/17 06:19 Dose: 1,000 mg - Objective Vital Signs: Vital Signs Temperature 98.3 F 06/19/17 07:14 Pulse Rate 96 H 06/19/17 07:14 Respiratory Rate 20 06/19/17 07:14 Blood Pressure 92/65 06/19/17 07:14 O2 Sat by Pulse Oximetry (%) 100 06/18/17 21:00 Constitutional: Yes: No Distress HENT: Yes: Atraumatic Neck: Yes: Supple Cardiovascular: Yes: Regular Rate and Rhythm Respiratory: Yes: CTA Bilaterally Gastrointestinal: Yes: Normal Bowel Sounds Extremities: Yes: Other (left foot in dressing) Neurological: Yes: Alert, Oriented Labs: CBC, BMP 06/16/17 06:00 06/16/17 06:00 Problem List - Problems (1) Afib Assessment/Plan: on eliquis Code(s): I48.91 - UNSPECIFIED ATRIAL FIBRILLATION (2) Diabetic foot infection Assessment/Plan: L foot iv abx id consult podiatry on case Code(s): E11.628 - TYPE 2 DIABETES MELLITUS WITH OTHER SKIN COMPLICATIONS; L08.9 - LOCAL INFECTION OF THE SKIN AND SUBCUTANEOUS TISSUE, UNSP (3) Cellulitis Assessment/Plan: iv abx cxs seen..awaiting id input dc planning Code(s): L03.90 - CELLULITIS, UNSPECIFIED Qualifiers: Site of cellulitis: extremity Site of cellulitis of extremity: toe Laterality: left Qualified Code(s): L03.032 - Cellulitis of left toe (4) Foot ulcer Code(s): L97.509 - NON-PRESSURE CHRONIC ULCER OTH PRT UNSP FOOT W UNSP SEVERITY Qualifiers: Laterality: left Non-pressure ulcer stage: with fat layer exposed Qualified Code(s): L97.522 - Non-pressure chronic ulcer of other part of left foot with fat layer exposed (5) HTN (hypertension) Assessment/Plan: stable Code(s): I10 - ESSENTIAL (PRIMARY) HYPERTENSION (6) Diabetes Assessment/Plan: on po meds bgms Code(s): E11.9 - TYPE 2 DIABETES MELLITUS WITHOUT COMPLICATIONS
--- NOTE | 2017-06-19 13:50 | PN ---
Progress Note, Physician History of Present Illness: Pt seen and examined. Events, labs/radiology results noted. Pt states he feels well. Denies pain, chills. Tmax 99.5F. No other specific complaints. - Current Medication List Current Medications: Active Medications Acetaminophen (Tylenol -) 650 mg PO Q6H PRN PRN Reason: FEVER Apixaban (Eliquis -) 5 mg PO BID [facility] Last Admin: 06/19/17 09:37 Dose: 5 mg Collagenase (Santyl -) 1 applic TP DAILY [facility] Last Admin: 06/19/17 09:38 Dose: 1 applic Glipizide (Glucotrol -) 5 mg PO ACBK [facility] Last Admin: 06/19/17 06:19 Dose: 5 mg Ceftriaxone Sodium 1 gm/ (Dextrose) 50 mls @ 100 mls/hr IVPB DAILY [facility] Last Admin: 06/19/17 09:36 Dose: 100 mls/hr Metformin HCl (Glucophage -) 1,000 mg PO BIDAC [facility] Last Admin: 06/19/17 06:19 Dose: 1,000 mg - Objective Vital Signs: Vital Signs Temperature 98.3 F 06/19/17 07:14 Pulse Rate 96 H 06/19/17 07:14 Respiratory Rate 20 06/19/17 07:14 Blood Pressure 92/65 06/19/17 07:14 O2 Sat by Pulse Oximetry (%) 100 06/18/17 21:00 Constitutional: Yes: No Distress, Calm Cardiovascular: Yes: Regular Rate and Rhythm Respiratory: Yes: CTA Bilaterally Gastrointestinal: Yes: Normal Bowel Sounds, Soft Integumentary: Yes: Other (Lt foot plantar ulcer, mild serous drainage, no erythema/tenderness) Neurological: Yes: Alert, Oriented Labs: CBC, BMP 06/16/17 06:00 06/16/17 06:00 Microbiology 06/15/17 09:06 Foot - Left Plantar Gram Stain - Final 06/15/17 09:06 Foot - Left Plantar Wound Culture - Final Enterococcus Faecalis Diphtheroid/Corynebacterium - ....Imaging X-ray: Report Reviewed, Image Reviewed Problem List - Problems (1) Diabetes Code(s): E11.9 - TYPE 2 DIABETES MELLITUS WITHOUT COMPLICATIONS (2) Diabetic foot infection Code(s): E11.628 - TYPE 2 DIABETES MELLITUS WITH OTHER SKIN COMPLICATIONS; L08.9 - LOCAL INFECTION OF THE SKIN AND SUBCUTANEOUS TISSUE, UNSP (3) Foot ulcer Code(s): L97.509 - NON-PRESSURE CHRONIC ULCER OTH PRT UNSP FOOT W UNSP SEVERITY Qualifiers: Laterality: left Non-pressure ulcer stage: with fat layer exposed Qualified Code(s): L97.522 - Non-pressure chronic ulcer of other part of left foot with fat layer exposed (4) Afib Code(s): I48.91 - UNSPECIFIED ATRIAL FIBRILLATION Assessment/Plan 51 y.o. male with uncontrolled DM, Afib, previous Lt toe amputations presenting with worsening of chronic Lt plantar ulcer Infected Lt submetatarsal ulcer/Osteomyelitis Enterococcus isolated in wound culture -- d/c Ceftriaxone, Start Ampicillin for now -- needs tighter glycemic control -- continue wound care, monitor temps
[2017-06-19] MEDS: AMPICILLIN - 2 GM in SODIUM CHLORIDE 100 ML IVPB SCH ×2 (17:00→21:04)
[2017-06-20] MEDS: AMPICILLIN - 2 GM in SODIUM CHLORIDE 100 ML IVPB SCH ×4 (02:55→21:30)
[2017-06-20] MEDS: glipiZIDE 5 MG TABLET (FP) PO SCH (06:42)
[2017-06-20] MEDS: metFORMIN HCL 500 MG TABLET (FP) PO SCH ×2 (06:42→16:08)
[2017-06-20] MEDS: APIXABAN 5 MG TABLET PO SCH ×2 (10:10→21:30)
[2017-06-20] MEDS: COLLAGENASE CLOSTRIDIUM HIST. 30 GRAMS TUBE TP SCH (10:13)
--- NOTE | 2017-06-20 14:21 | PN ---
Progress Note, Physician History of Present Illness: Pt remains afebrile, without distress. States his toes on left foot has been more swollen compared to right foot in the last several day but no tenderness/ erythema/warmth. No drainage from Lt plantar ulcer. No rash, fever, chills or any other specific complaints. - Current Medication List Current Medications: Active Medications Acetaminophen (Tylenol -) 650 mg PO Q6H PRN PRN Reason: FEVER Apixaban (Eliquis -) 5 mg PO BID [facility] Last Admin: 06/20/17 10:10 Dose: 5 mg Collagenase (Santyl -) 1 applic TP DAILY [facility] Last Admin: 06/20/17 10:13 Dose: 1 applic Glipizide (Glucotrol -) 5 mg PO ACBK [facility] Last Admin: 06/20/17 06:42 Dose: 5 mg Ampicillin Sodium 2 gm/ Sodium (Chloride) 100 mls @ 200 mls/hr IVPB Q6H-IV [facility] Last Admin: 06/20/17 10:10 Dose: 200 mls/hr Metformin HCl (Glucophage -) 1,000 mg PO BIDAC [facility] Last Admin: 06/20/17 06:42 Dose: 1,000 mg - Objective Vital Signs: Vital Signs Temperature 98.2 F 06/20/17 07:24 Pulse Rate 98 H 06/20/17 07:24 Respiratory Rate 20 06/20/17 07:24 Blood Pressure 109/60 06/20/17 07:24 O2 Sat by Pulse Oximetry (%) 98 06/19/17 21:00 Constitutional: Yes: No Distress, Calm Cardiovascular: Yes: Pulse Irregular Respiratory: Yes: CTA Bilaterally Gastrointestinal: Yes: Normal Bowel Sounds, Soft Genitourinary: Yes: WNL Extremities: Yes: Other (Lt toes mild edema) Wound/Incision: Yes: Dressing Dry and Intact (Lt foot plantar ulcer without purulence, no periwound erythema/induration/tenderness) Neurological: Yes: Alert Labs: CBC, BMP 06/16/17 06:00 06/16/17 06:00 Microbiology 06/15/17 09:06 Foot - Left Plantar Gram Stain - Final 06/15/17 09:06 Foot - Left Plantar Wound Culture - Final Enterococcus Faecalis Diphtheroid/Corynebacterium Problem List - Problems (1) Diabetes Code(s): E11.9 - TYPE 2 DIABETES MELLITUS WITHOUT COMPLICATIONS (2) Diabetic foot infection Code(s): E11.628 - TYPE 2 DIABETES MELLITUS WITH OTHER SKIN COMPLICATIONS; L08.9 - LOCAL INFECTION OF THE SKIN AND SUBCUTANEOUS TISSUE, UNSP (3) Foot ulcer Code(s): L97.509 - NON-PRESSURE CHRONIC ULCER OTH PRT UNSP FOOT W UNSP SEVERITY Qualifiers: Laterality: left Non-pressure ulcer stage: with fat layer exposed Qualified Code(s): L97.522 - Non-pressure chronic ulcer of other part of left foot with fat layer exposed (4) Afib Code(s): I48.91 - UNSPECIFIED ATRIAL FIBRILLATION Assessment/Plan 51 y.o. male with uncontrolled DM, Afib, previous Lt toe amputations presenting with worsening of chronic Lt plantar ulcer Infected Lt submetatarsal ulcer/Osteomyelitis Enterococcal infection Uncontrolled DM -- continue antibiotics -- needs tighter glycemic control -- continue wound care
[2017-06-20] MEDS ORDERED: PT OWN MED DRAWER 7, Y5N ONE ×2 (15:34→20:56)
--- NOTE | 2017-06-20 19:23 | PN ---
Progress Note, Physician History of Present Illness: all previous noted not much pain but pt noticed little more swelling last 2days d/w with id...please see id note need podiatry fu - Current Medication List Current Medications: Active Medications Acetaminophen (Tylenol -) 650 mg PO Q6H PRN PRN Reason: FEVER Apixaban (Eliquis -) 5 mg PO BID [facility] Last Admin: 06/20/17 10:10 Dose: 5 mg Collagenase (Santyl -) 1 applic TP DAILY [facility] Last Admin: 06/20/17 10:13 Dose: 1 applic Glipizide (Glucotrol -) 5 mg PO ACBK [facility] Last Admin: 06/20/17 06:42 Dose: 5 mg Ampicillin Sodium 2 gm/ Sodium (Chloride) 100 mls @ 200 mls/hr IVPB Q6H-IV [facility] Last Admin: 06/20/17 16:08 Dose: 200 mls/hr Insulin Aspart (Novolog Vial Sliding Scale -) 1 vial SQ ACHS [facility] PRN Reason: Protocol Metformin HCl (Glucophage -) 1,000 mg PO BIDAC [facility] Last Admin: 06/20/17 16:08 Dose: 1,000 mg - Objective Vital Signs: Vital Signs Temperature 98.4 F 06/20/17 18:41 Pulse Rate 97 H 06/20/17 18:41 Respiratory Rate 18 06/20/17 18:41 Blood Pressure 113/71 06/20/17 18:41 O2 Sat by Pulse Oximetry (%) 100 06/20/17 09:00 Constitutional: Yes: No Distress HENT: Yes: Atraumatic Neck: Yes: Supple Cardiovascular: Yes: Regular Rate and Rhythm Respiratory: Yes: CTA Bilaterally Gastrointestinal: Yes: Normal Bowel Sounds Extremities: Yes: WNL Neurological: Yes: Alert, Oriented Labs: CBC, BMP 06/16/17 06:00 06/16/17 06:00 Problem List - Problems (1) Afib Assessment/Plan: on eliquis Code(s): I48.91 - UNSPECIFIED ATRIAL FIBRILLATION (2) Diabetic foot infection Assessment/Plan: L foot iv abx id consult podiatry on case Code(s): E11.628 - TYPE 2 DIABETES MELLITUS WITH OTHER SKIN COMPLICATIONS; L08.9 - LOCAL INFECTION OF THE SKIN AND SUBCUTANEOUS TISSUE, UNSP (3) Cellulitis Assessment/Plan: iv abx d/w id...she does not believe any acute situation right now need podiatry follow up Code(s): L03.90 - CELLULITIS, UNSPECIFIED Qualifiers: Site of cellulitis: extremity Site of cellulitis of extremity: toe Laterality: left Qualified Code(s): L03.032 - Cellulitis of left toe (4) Foot ulcer Code(s): L97.509 - NON-PRESSURE CHRONIC ULCER OTH PRT UNSP FOOT W UNSP SEVERITY Qualifiers: Laterality: left Non-pressure ulcer stage: with fat layer exposed Qualified Code(s): L97.522 - Non-pressure chronic ulcer of other part of left foot with fat layer exposed (5) HTN (hypertension) Assessment/Plan: stable Code(s): I10 - ESSENTIAL (PRIMARY) HYPERTENSION (6) Diabetes Assessment/Plan: on po meds bgms will cover with insulin...sliding scale Code(s): E11.9 - TYPE 2 DIABETES MELLITUS WITHOUT COMPLICATIONS
[2017-06-20] MEDS: INSULIN SLIDING SCALE (NOVOLOG) 1 VIAL SQ SCH (21:30)
[2017-06-21] MEDS: AMPICILLIN - 2 GM in SODIUM CHLORIDE 100 ML IVPB SCH ×2 (02:50→09:37)
[2017-06-21] MEDS: metFORMIN HCL 500 MG TABLET (FP) PO SCH ×2 (06:50→17:45)
[2017-06-21] MEDS: glipiZIDE 5 MG TABLET (FP) PO SCH (06:51)
[2017-06-21] MEDS: INSULIN SLIDING SCALE (NOVOLOG) 1 VIAL SQ SCH ×3 (06:51→17:25)
[2017-06-21 07:50] LABS: BASO % 0.6 % (0-2.0); EOS % 1.4 % (0-4.5); HEMATOCRIT 37.4 % (35.4-49); LYMPH % 26.8 % (8-40); MCH 31.1 pg (25.7-33.7); MCHC 34.8 g/dl (32.0-35.9); MEAN CELL VOLUME 89.2 fl (80-96); MEAN PLT VOLUME 8.9 fl (7.5-11.1); MONO % 7.2 % (3.8-10.2); PLATELET COUNT 229 K/MM3 (134-434); RBC 4.19 M/mm3 (4.00-5.60); RDW 13.4 % (11.9-15.9); WHITE BLOOD COUNT 6.3 K/mm3 (4.0-10.0)
[2017-06-21 08:13] LABS: ALBUMIN 3.5 g/dl (3.4-5.0); ANION GAP 10 (8-16); BILIRUBIN,TOTAL 0.3 mg/dL (0.2-1.0); BLOOD UREA NITROGEN 15 mg/dL (7-18); CALCIUM 8.6 mg/dL (8.5-10.1); CHLORIDE 102 mmol/L (98-107); CO2 27 mmol/L (21-32); CREATININE 0.8 mg/dL (0.7-1.3); GLUCOSE,RANDOM 131 mg/dL (74-106); POTASSIUM 3.9 mmol/L (3.5-5.1); SGOT/AST 16 U/L (15-37); SGPT/ALT 22 U/L (12-78); SODIUM 139 mmol/L (136-145); TOT PROT 7.6 g/dl (6.4-8.2)
[2017-06-21 08:14] LABS: ALK PHOS 120 U/L (45-117)
[2017-06-21] MEDS: APIXABAN 5 MG TABLET PO SCH (09:37)
--- NOTE | 2017-06-21 12:26 | PN ---
Progress Note, Physician History of Present Illness: all previous noted not much pain but pt noticed little more swelling last 2days d/w with id...please see id note need podiatry fu - Current Medication List Current Medications: Active Medications Acetaminophen (Tylenol -) 650 mg PO Q6H PRN PRN Reason: FEVER Apixaban (Eliquis -) 5 mg PO BID [facility] Last Admin: 06/21/17 09:37 Dose: 5 mg Collagenase (Santyl -) 1 applic TP DAILY [facility] Last Admin: 06/20/17 10:13 Dose: 1 applic Glipizide (Glucotrol -) 5 mg PO ACBK [facility] Last Admin: 06/21/17 06:51 Dose: 5 mg Ampicillin Sodium 2 gm/ Sodium (Chloride) 100 mls @ 200 mls/hr IVPB Q6H-IV [facility] Last Admin: 06/21/17 09:37 Dose: 200 mls/hr Insulin Aspart (Novolog Vial Sliding Scale -) 1 vial SQ ACHS [facility] PRN Reason: Protocol Last Admin: 06/21/17 12:20 Dose: Not Given Metformin HCl (Glucophage -) 1,000 mg PO BIDAC [facility] Last Admin: 06/21/17 06:50 Dose: 1,000 mg - Objective Vital Signs: Vital Signs Temperature 98.8 F 06/21/17 06:00 Pulse Rate 93 H 06/21/17 06:00 Respiratory Rate 18 06/21/17 06:00 Blood Pressure 107/62 06/21/17 06:00 O2 Sat by Pulse Oximetry (%) 97 06/20/17 21:00 Constitutional: Yes: No Distress HENT: Yes: Atraumatic Neck: Yes: Supple Cardiovascular: Yes: Regular Rate and Rhythm Respiratory: Yes: CTA Bilaterally Gastrointestinal: Yes: Normal Bowel Sounds Extremities: Yes: Other (left foot dressing) Edema: Yes Edema: LLE: 1+ (left foot) Peripheral Pulses WNL: Yes Neurological: Yes: Alert, Oriented Labs: CBC, BMP 06/21/17 06:40 06/21/17 06:40 Problem List - Problems (1) Afib Code(s): I48.91 - UNSPECIFIED ATRIAL FIBRILLATION (2) Diabetic foot infection Code(s): E11.628 - TYPE 2 DIABETES MELLITUS WITH OTHER SKIN COMPLICATIONS; L08.9 - LOCAL INFECTION OF THE SKIN AND SUBCUTANEOUS TISSUE, UNSP (3) Cellulitis Code(s): L03.90 - CELLULITIS, UNSPECIFIED Qualifiers: Site of cellulitis: extremity Site of cellulitis of extremity: toe Laterality: left Qualified Code(s): L03.032 - Cellulitis of left toe (4) Foot ulcer Code(s): L97.509 - NON-PRESSURE CHRONIC ULCER OTH PRT UNSP FOOT W UNSP SEVERITY Qualifiers: Laterality: left Non-pressure ulcer stage: with fat layer exposed Qualified Code(s): L97.522 - Non-pressure chronic ulcer of other part of left foot with fat layer exposed (5) HTN (hypertension) Code(s): I10 - ESSENTIAL (PRIMARY) HYPERTENSION (6) Diabetes Code(s): E11.9 - TYPE 2 DIABETES MELLITUS WITHOUT COMPLICATIONS
--- NOTE | 2017-06-21 13:19 | PN ---
Progress Note (short form) - Note Progress Note: Podiatry F/U: Seen/evaluated at bedside, NAD. Pain controlled, denies F/V/N/C/SOB/CP. Afebrile. Patient notes increased swelling to digits over the past couple of days. WILLIAM: L foot: pedal pulses palpable, TG wnl. Sub-second metatarsal diabetic ulcer with mixed fibrogranular base, probes deep to bone, no purulent drainage, no fluctuance, no ascending cellulitis, no signs of active infection. Sub-third metatarsal diabetic ulcer mostly granular base, regular borders, no probing to bone, no purulent drainage, no fluctuance, no ascending cellulitis, no signs of active infection. WBC: 6.3 ESR: 55 Wound Cx: E. Faecalis Imp: 51 year old poorly controlled DM M with L foot diabetic ulcer, clinical osteomyelitis 1. IV abx per Infectious Disease 2. Patient does have chronic osteomyelitis sub-second metatarsal. Will treat with prolonged course of IV abx. Patient at risk in the future of trans- metatarsal amputation if his condition does not improve. I strongly urged patient to minimize his weightbearing activity. 3. Continue santyl for local wound care Rx. 4. No acute surgical intervention required. Jimmie Alvarado DPM
--- NOTE | 2017-06-21 14:21 | PN ---
Progress Note, Physician History of Present Illness: patient stable no issues dsg looks good - Current Medication List Current Medications: Active Medications Acetaminophen (Tylenol -) 650 mg PO Q6H PRN PRN Reason: FEVER Apixaban (Eliquis -) 5 mg PO BID [facility] Last Admin: 06/21/17 09:37 Dose: 5 mg Collagenase (Santyl -) 1 applic TP DAILY [facility] Last Admin: 06/20/17 10:13 Dose: 1 applic Glipizide (Glucotrol -) 5 mg PO ACBK [facility] Last Admin: 06/21/17 06:51 Dose: 5 mg Ampicillin Sodium 2 gm/ Sodium (Chloride) 100 mls @ 200 mls/hr IVPB Q6H-IV [facility] Last Admin: 06/21/17 09:37 Dose: 200 mls/hr Insulin Aspart (Novolog Vial Sliding Scale -) 1 vial SQ ACHS [facility] PRN Reason: Protocol Last Admin: 06/21/17 12:20 Dose: Not Given Metformin HCl (Glucophage -) 1,000 mg PO BIDAC [facility] Last Admin: 06/21/17 06:50 Dose: 1,000 mg - Objective Vital Signs: Vital Signs Temperature 98.8 F 06/21/17 06:00 Pulse Rate 93 H 06/21/17 06:00 Respiratory Rate 18 06/21/17 06:00 Blood Pressure 107/62 06/21/17 06:00 O2 Sat by Pulse Oximetry (%) 97 06/20/17 21:00 Constitutional: Yes: No Distress, Calm Cardiovascular: Yes: Regular Rate and Rhythm Respiratory: Yes: Regular, CTA Bilaterally Gastrointestinal: Yes: Normal Bowel Sounds, Soft Musculoskeletal: Yes: WNL Extremities: Yes: Other Wound/Incision: Yes: Dressing Dry and Intact Neurological: Yes: Alert, Oriented Psychiatric: Yes: Alert, Oriented Labs: CBC, BMP 06/21/17 06:40 06/21/17 06:40 Assessment/Plan Problem List - Problems (1) Afib Assessment/Plan: on eliquis Code(s): I48.91 - UNSPECIFIED ATRIAL FIBRILLATION (2) Diabetic foot infection Assessment/Plan: iv abx id consult wound care dressing change Code(s): E11.628 - TYPE 2 DIABETES MELLITUS WITH OTHER SKIN COMPLICATIONS; L08.9 - LOCAL INFECTION OF THE SKIN AND SUBCUTANEOUS TISSUE, UNSP (3) Cellulitis Assessment/Plan: iv abx cxs sent Code(s): L03.90 - CELLULITIS, UNSPECIFIED Qualifiers: Site of cellulitis: extremity Site of cellulitis of extremity: toe Laterality: left Qualified Code(s): L03.032 - Cellulitis of left toe (4) Foot ulcer Code(s): L97.509 - NON-PRESSURE CHRONIC ULCER OTH PRT UNSP FOOT W UNSP SEVERITY Qualifiers: Laterality: left Non-pressure ulcer stage: with fat layer exposed Qualified Code(s): L97.522 - Non-pressure chronic ulcer of other part of left foot with fat layer exposed (5) HTN (hypertension) Assessment/Plan: stable Code(s): I10 - ESSENTIAL (PRIMARY) HYPERTENSION (6) Diabetes Assessment/Plan: on po meds bgms Code(s): E11.9 - TYPE 2 DIABETES MELLITUS WITHOUT COMPLICATIONS osteo of the foot plan will change to vanco rest continue current mgmt cbc esr crp bmp weekly vanco torugh before the 4th dose and adjust abx
[2017-06-21] MEDS ORDERED: VANCOMYCIN 1,250 MG in DEXTROSE 5%-WATER - 250 ML IVPB SCH (14:30)
[2017-06-21] MEDS ORDERED: PICC LINE 8 ML FLUSH PROTOCOL IVPUSH PRN (14:44)
--- NOTE | 2017-06-21 14:52 | DS ---
Physical Examination Vital Signs: Vital Signs Temperature 98.8 F 06/21/17 06:00 Pulse Rate 93 H 06/21/17 06:00 Respiratory Rate 18 06/21/17 06:00 Blood Pressure 107/62 06/21/17 06:00 O2 Sat by Pulse Oximetry (%) 97 06/20/17 21:00 Constitutional: Yes: No Distress HENT: Yes: Atraumatic Neck: Yes: Supple Cardiovascular: Yes: Regular Rate and Rhythm Respiratory: Yes: CTA Bilaterally Gastrointestinal: Yes: Normal Bowel Sounds Extremities: Yes: Other (left foot in dressing) Neurological: Yes: Alert, Oriented Labs: CBC, BMP 06/21/17 06:40 06/21/17 06:40 Discharge Summary Reason For Visit: DIABETIC FOOT Current Active Problems Afib (Acute) Diabetes (Acute) Diabetic foot infection (Acute) HTN (hypertension) (Acute) Condition: Fair - Instructions Diet, Activity, Other Instructions: cbc , cmp wekly check vanco level as per id Referrals: Quinten Rodney MD [Staff Physician] - Leonor Nelson MD [Primary Care Provider] - - Home Medications Comprehensive Discharge Medication List: Ambulatory Orders Apixaban [Eliquis] 5 mg PO BID #60 tablet 04/16/17 Metformin HCl [Glucophage] 1,000 mg PO BID #60 tablet 04/16/17 Acetaminophen [Tylenol] 650 mg PO Q4H #30 tablet 06/10/17 Glipizide 5 mg PO DAILY 06/14/17 Vancomycin 1,250 mg IVPB DAILY #0 vial 06/21/17
[2017-06-21 15:47] VITALS: BP 101/71; PULSE 102; TEMP 99
[2017-06-21] MEDS ORDERED: VANCOMYCIN 1,250 MG in SODIUM CHLORIDE 250 ML IVPB SCH (16:00)
[2017-06-21] MEDS: COLLAGENASE CLOSTRIDIUM HIST. 30 GRAMS TUBE TP SCH (17:24)
[2017-06-24 15:09] LABS: CHOLESTEROL 115 mg/dL (50-200); TRIGLYCERIDES 167 mg/dL (35-160)
[2017-06-24 19:30] LABS: HDL CHOLESTEROL 33 mg/dL (40-60); LDL CHOLESTEROL (ONLY SJRH) 68 mg/dL (5-100)
== END 2017-06-21 19:58 | disposition home or self-care (01) | DRG 344 ==
LOC: JER 11:13 → JERBED 14:17 → J5S 16:13
PROVIDERS: ADMIT Internal Medicine; ATTEND Internal Medicine
PROC: 02HV33Z Insertion of Infusion Device into Superior Vena Cava, Percutaneous Approach (ICD-10-PCS; principal; 2017-06-21)
DX: E11.621 Type 2 diabetes mellitus with foot ulcer (principal); M86.672 Other chronic osteomyelitis, left ankle and foot; L97.522 Non-pressure chronic ulcer of other part of left foot with fat layer exposed; E11.628 Type 2 diabetes mellitus with other skin complications; L08.9 Local infection of the skin and subcutaneous tissue, unspecified; I48.91 Unspecified atrial fibrillation; I10 Essential (primary) hypertension; L03.032 Cellulitis of left toe; E11.69 Type 2 diabetes mellitus with other specified complication; E11.65 Type 2 diabetes mellitus with hyperglycemia; L08.89 Other specified local infections of the skin and subcutaneous tissue; B95.2 Enterococcus as the cause of diseases classified elsewhere; Z89.422 Acquired absence of other left toe(s); Z79.4 Long term (current) use of insulin
CPT/HCPCS: 36415; 36569; 71045-TC-FY; 73630-TC-LT; 77001-TC-FY; 80053; 80061; 82550; 82962; 83721; 84484; 85025; 85651; 86140; 87070; 87186; 87205; 93005; 93010; 99284-25; C1751; J7030

== ENCOUNTER 2017-06-22 10:10 | Day surgery (SDC) | payer OTHER ==
[~2017-06-22 10:10] MED LIST: VANCOMYCIN 1,250 MG in DEXTROSE 5%-WATER - 250 ML IVPB ONE
[2017-06-22 10:48] LABS: HEMOGLOBIN 13.3 GM/dL (11.7-16.9); MCH 30.7 pg (25.7-33.7); MCHC 34.1 g/dl (32.0-35.9); MEAN CELL VOLUME 90.1 fl (80-96); MEAN PLT VOLUME 9.1 fl (7.5-11.1); PLATELET COUNT 246 K/MM3 (134-434); RBC 4.33 M/mm3 (4.00-5.60); RDW 13.5 % (11.9-15.9)
[2017-06-22 11:18] VITALS: TEMP 97
[2017-06-22 11:30] LABS: ANION GAP 10 (8-16); BLOOD UREA NITROGEN 16 mg/dL (7-18); CALCIUM 8.9 mg/dL (8.5-10.1); CHLORIDE 102 mmol/L (98-107); CO2 27 mmol/L (21-32); CREATININE 0.8 mg/dL (0.7-1.3); GLUCOSE,RANDOM 146 mg/dL (74-106); POTASSIUM 4.7 mmol/L (3.5-5.1); SODIUM 139 mmol/L (136-145)
[2017-06-22 12:30] LABS: ERYTHROCYTE SEDIMENTATION RATE 47 mm/hr (0-20)
[2017-06-22 13:43] VITALS: BP 107/72; PULSE 72
== END 2017-06-22 13:10 | disposition home or self-care (01) ==
LOC: JINFUSION 10:10
PROVIDERS: ATTEND Internal Medicine Infectious Disease
DX: M86.672 Other chronic osteomyelitis, left ankle and foot (principal); E11.621 Type 2 diabetes mellitus with foot ulcer; L97.522 Non-pressure chronic ulcer of other part of left foot with fat layer exposed; Z79.4 Long term (current) use of insulin
CPT/HCPCS: 36415; 80048; 85027; 85651; 86140; 96365; 96366

== ENCOUNTER 2017-06-23 09:03 | Day surgery (SDC) | payer OTHER ==
[2017-06-23 09:29] VITALS: PULSE 101; TEMP 97.7
[2017-06-23] MEDS ORDERED: VANCOMYCIN 1,250 MG in DEXTROSE 5%-WATER - 250 ML IVPB ONE (10:00)
[2017-06-23 12:22] VITALS: BP 108/69
== END 2017-06-23 12:23 | disposition home or self-care (01) ==
LOC: JINFUSION 09:03
PROVIDERS: ATTEND Internal Medicine Infectious Disease
DX: M86.672 Other chronic osteomyelitis, left ankle and foot (principal); E11.621 Type 2 diabetes mellitus with foot ulcer; L97.522 Non-pressure chronic ulcer of other part of left foot with fat layer exposed; Z79.4 Long term (current) use of insulin
CPT/HCPCS: 96365; 96366

== ENCOUNTER 2017-06-24 09:01 | Day surgery (SDC) | payer OTHER ==
[2017-06-24] MEDS ORDERED: VANCOMYCIN 1,250 MG in DEXTROSE 5%-WATER - 250 ML IVPB ONE (10:00)
[2017-06-24] MEDS ORDERED: VANCOMYCIN 1,000 MG in DEXTROSE 5%-WATER - 250 ML IVPB ONE (10:00)
[2017-06-24 10:31] VITALS: TEMP 97.9
[2017-06-24 12:15] VITALS: BP 112/74; PULSE 94
== END 2017-06-24 12:16 | disposition home or self-care (01) ==
LOC: JINFUSION 09:01
PROVIDERS: ATTEND Internal Medicine Infectious Disease
DX: M86.672 Other chronic osteomyelitis, left ankle and foot (principal); E11.621 Type 2 diabetes mellitus with foot ulcer; L97.522 Non-pressure chronic ulcer of other part of left foot with fat layer exposed; Z79.4 Long term (current) use of insulin
CPT/HCPCS: 96365; 96366; G0480

== ENCOUNTER 2017-06-25 09:11 | Day surgery (SDC) | payer OTHER ==
[~2017-06-25 09:11] MED LIST changes: -VANCOMYCIN 1,250 MG in DEXTROSE 5%-WATER - 250 ML IVPB ONE; +VANCOMYCIN 1,500 MG in DEXTROSE 5%-WATER - 500 ML IVPB ONE
[2017-06-25 15:32] VITALS: BP 94/56; PULSE 82; TEMP 97.9
[2017-06-25] MEDS ORDERED: SODIUM CHLORIDE 0.9% 500 ML INFUS.BAG IV ONE (15:33)
== END 2017-06-25 15:54 | disposition home or self-care (01) ==
LOC: JINFUSION 09:11
PROVIDERS: ATTEND Internal Medicine Infectious Disease
DX: M86.672 Other chronic osteomyelitis, left ankle and foot (principal); E11.621 Type 2 diabetes mellitus with foot ulcer; L97.522 Non-pressure chronic ulcer of other part of left foot with fat layer exposed; Z79.4 Long term (current) use of insulin
CPT/HCPCS: 82962; 96365; 96366

== ENCOUNTER 2017-06-26 08:32 | Day surgery (SDC) | payer OTHER ==
[2017-06-26 08:58] VITALS: TEMP 98.2
[2017-06-26] MEDS ORDERED: VANCOMYCIN 1,250 MG in DEXTROSE 5%-WATER - 250 ML IVPB ONE (10:00)
[2017-06-26 12:09] VITALS: BP 100/71; PULSE 69
== END 2017-06-26 12:00 | disposition home or self-care (01) ==
LOC: JINFUSION 08:32 → J7W 08:42 → JINFUSION 12:00
PROVIDERS: ATTEND Internal Medicine Infectious Disease
DX: M86.672 Other chronic osteomyelitis, left ankle and foot (principal); E11.621 Type 2 diabetes mellitus with foot ulcer; L97.522 Non-pressure chronic ulcer of other part of left foot with fat layer exposed; Z79.4 Long term (current) use of insulin
CPT/HCPCS: 96365; 96366

== ENCOUNTER 2017-06-27 08:50 | Day surgery (SDC) | payer OTHER ==
[2017-06-27] MEDS ORDERED: VANCOMYCIN 1,250 MG in DEXTROSE 5%-WATER - 250 ML IVPB ONE (09:15)
[2017-06-27 12:44] VITALS: BP 105/68; PULSE 89; TEMP 97.8
== END 2017-06-27 13:00 | disposition home or self-care (01) ==
LOC: JINFUSION 08:50 → J7W 08:50 → JINFUSION 13:00
PROVIDERS: ATTEND Internal Medicine Infectious Disease
DX: M86.672 Other chronic osteomyelitis, left ankle and foot (principal); E11.621 Type 2 diabetes mellitus with foot ulcer; L97.522 Non-pressure chronic ulcer of other part of left foot with fat layer exposed; Z79.4 Long term (current) use of insulin
CPT/HCPCS: 96365; G0480

== ENCOUNTER 2017-06-29 08:25 | Day surgery (SDC) | payer OTHER ==
[2017-06-29 08:59] LABS: HEMATOCRIT 40.3 % (35.4-49); HEMOGLOBIN 13.8 GM/dL (11.7-16.9); MCH 31.2 pg (25.7-33.7); MCHC 34.2 g/dl (32.0-35.9); MEAN CELL VOLUME 91.1 fl (80-96); MEAN PLT VOLUME 10.4 fl (7.5-11.1); PLATELET COUNT 230 K/MM3 (134-434); RBC 4.42 M/mm3 (4.00-5.60); RDW 13.6 % (11.9-15.9)
[2017-06-29] MEDS ORDERED: VANCOMYCIN 1,500 MG in DEXTROSE 5%-WATER - 500 ML IVPB ONE (09:30)
[2017-06-29 09:34] VITALS: TEMP 97.5
[2017-06-29 09:42] LABS: CHLORIDE 106 mmol/L (98-107); POTASSIUM 4.9 mmol/L (3.5-5.1); SODIUM 138 mmol/L (136-145)
[2017-06-29 09:48] LABS: ANION GAP 5 (8-16); BLOOD UREA NITROGEN 12 mg/dL (7-18); CALCIUM 8.7 mg/dL (8.5-10.1); CO2 27 mmol/L (21-32); CREATININE 1.3 mg/dL (0.7-1.3); GLUCOSE,RANDOM 168 mg/dL (74-106)
[2017-06-29 10:17] LABS: ERYTHROCYTE SEDIMENTATION RATE 16 mm/hr (0-20)
[2017-06-29 12:41] VITALS: BP 110/65; PULSE 75
== END 2017-06-29 12:54 | disposition home or self-care (01) ==
LOC: JINFUSION 08:25
PROVIDERS: ATTEND Internal Medicine Infectious Disease
DX: M86.672 Other chronic osteomyelitis, left ankle and foot (principal); E11.621 Type 2 diabetes mellitus with foot ulcer; L97.522 Non-pressure chronic ulcer of other part of left foot with fat layer exposed; Z79.4 Long term (current) use of insulin
CPT/HCPCS: 36415; 80048; 85027; 85651; 86140; 96365; 96366; G0480

== ENCOUNTER 2017-06-30 08:34 | Day surgery (SDC) | payer OTHER ==
[2017-06-30 08:58] VITALS: TEMP 97.4
[2017-06-30] MEDS ORDERED: VANCOMYCIN 2,000 MG in SODIUM CHLORIDE 500 ML IVPB ONE (09:00)
[2017-06-30] MEDS ORDERED: SODIUM CHLORIDE IVPB ONE (09:00)
[2017-06-30] MEDS ORDERED: VANCOMYCIN IVPB ONE (09:00)
[2017-06-30 12:13] VITALS: BP 90/50; PULSE 56
== END 2017-06-30 12:55 | disposition home or self-care (01) ==
LOC: JINFUSION 08:34
PROVIDERS: ATTEND Internal Medicine Infectious Disease
DX: M86.672 Other chronic osteomyelitis, left ankle and foot (principal); E11.621 Type 2 diabetes mellitus with foot ulcer; L97.522 Non-pressure chronic ulcer of other part of left foot with fat layer exposed; Z79.4 Long term (current) use of insulin
CPT/HCPCS: 96365; 96366

== ENCOUNTER 2017-07-01 08:40 | Day surgery (SDC) | payer OTHER ==
[2017-07-01 09:12] VITALS: TEMP 98.1
[2017-07-01] MEDS ORDERED: VANCOMYCIN 2,000 MG in SODIUM CHLORIDE 500 ML IVPB ONE (09:30)
[2017-07-01 13:46] VITALS: BP 113/71; PULSE 98
== END 2017-07-01 13:47 | disposition home or self-care (01) ==
LOC: JINFUSION 08:40
PROVIDERS: ATTEND Internal Medicine Infectious Disease
DX: M86.672 Other chronic osteomyelitis, left ankle and foot (principal); E11.621 Type 2 diabetes mellitus with foot ulcer; L97.522 Non-pressure chronic ulcer of other part of left foot with fat layer exposed; Z79.4 Long term (current) use of insulin
CPT/HCPCS: 96365; 96366

== ENCOUNTER 2017-07-02 08:50 | Day surgery (SDC) | payer OTHER ==
[2017-07-02] MEDS ORDERED: VANCOMYCIN 2,000 MG in SODIUM CHLORIDE 500 ML IVPB ONE (09:00)
[2017-07-02 10:06] VITALS: TEMP 98.2
[2017-07-02 13:49] VITALS: BP 115/81; PULSE 83
== END 2017-07-02 13:50 | disposition home or self-care (01) ==
LOC: JINFUSION 08:50
PROVIDERS: ATTEND Internal Medicine Infectious Disease
DX: M86.672 Other chronic osteomyelitis, left ankle and foot (principal); E11.621 Type 2 diabetes mellitus with foot ulcer; L97.522 Non-pressure chronic ulcer of other part of left foot with fat layer exposed; Z79.4 Long term (current) use of insulin
CPT/HCPCS: 96365; 96366

== ENCOUNTER 2017-07-03 08:35 | Day surgery (SDC) | payer OTHER ==
[2017-07-03] MEDS ORDERED: VANCOMYCIN 1,250 MG in DEXTROSE 5%-WATER - 250 ML IVPB ONE (11:00)
[2017-07-03 12:26] VITALS: BP 123/78; PULSE 88; TEMP 98.2
== END 2017-07-03 12:15 | disposition home or self-care (01) ==
LOC: JINFUSION 08:35 → J7W 08:36 → JINFUSION 12:15
PROVIDERS: ATTEND Internal Medicine Infectious Disease
DX: M86.672 Other chronic osteomyelitis, left ankle and foot (principal); E11.621 Type 2 diabetes mellitus with foot ulcer; L97.522 Non-pressure chronic ulcer of other part of left foot with fat layer exposed; Z79.4 Long term (current) use of insulin
CPT/HCPCS: 96365

== ENCOUNTER 2017-07-04 08:57 | Day surgery (SDC) | payer OTHER ==
[2017-07-04] MEDS ORDERED: VANCOMYCIN 1,250 MG in DEXTROSE 5%-WATER - 250 ML IVPB ONE (09:15)
[2017-07-04 14:32] VITALS: BP 118/80; PULSE 96; TEMP 98
== END 2017-07-04 13:00 | disposition home or self-care (01) ==
LOC: JINFUSION 08:57 → J7W 08:59 → JINFUSION 13:00
PROVIDERS: ATTEND Internal Medicine Infectious Disease
DX: M86.672 Other chronic osteomyelitis, left ankle and foot (principal); E11.621 Type 2 diabetes mellitus with foot ulcer; L97.522 Non-pressure chronic ulcer of other part of left foot with fat layer exposed; Z79.4 Long term (current) use of insulin
CPT/HCPCS: 96365; 96366

== ENCOUNTER 2017-07-05 08:50 | Day surgery (SDC) | payer OTHER ==
[2017-07-05 09:55] LABS: HEMATOCRIT 38.7 % (35.4-49); HEMOGLOBIN 13.1 GM/dL (11.7-16.9); MCH 30.5 pg (25.7-33.7); MCHC 33.7 g/dl (32.0-35.9); MEAN CELL VOLUME 90.4 fl (80-96); MEAN PLT VOLUME 9.7 fl (7.5-11.1); PLATELET COUNT 164 K/MM3 (134-434); RBC 4.28 M/mm3 (4.00-5.60); RDW 13.6 % (11.9-15.9); WHITE BLOOD COUNT 5.2 K/mm3 (4.0-10.0)
[2017-07-05 10:35] LABS: ANION GAP 6 (8-16); BLOOD UREA NITROGEN 18 mg/dL (7-18); CALCIUM 8.2 mg/dL (8.5-10.1); CHLORIDE 107 mmol/L (98-107); CO2 27 mmol/L (21-32); GLUCOSE,RANDOM 170 mg/dL (74-106); POTASSIUM 4.3 mmol/L (3.5-5.1); SODIUM 140 mmol/L (136-145)
[2017-07-05] MEDS ORDERED: VANCOMYCIN 2,000 MG in SODIUM CHLORIDE 500 ML IVPB ONE (12:30)
[2017-07-05] MEDS ORDERED: VANCOMYCIN 2,000 MG in DEXTROSE 5%-WATER - 500 ML IVPB ONE (12:30)
[2017-07-05 12:59] LABS: ERYTHROCYTE SEDIMENTATION RATE 24 mm/hr (0-20)
[2017-07-05 16:36] VITALS: BP 101/81; PULSE 96; TEMP 98.3
== END 2017-07-05 16:37 | disposition home or self-care (01) ==
LOC: JINFUSION 08:50
PROVIDERS: ATTEND Internal Medicine Infectious Disease
DX: M86.672 Other chronic osteomyelitis, left ankle and foot (principal); E11.621 Type 2 diabetes mellitus with foot ulcer; L97.522 Non-pressure chronic ulcer of other part of left foot with fat layer exposed; Z79.4 Long term (current) use of insulin
CPT/HCPCS: 36415; 80048; 85027; 85651; 86140; 96365; 96366; G0480

== ENCOUNTER 2017-07-06 08:56 | Day surgery (SDC) | payer OTHER ==
[2017-07-06] MEDS ORDERED: VANCOMYCIN 2,000 MG in DEXTROSE 5%-WATER - 500 ML IVPB ONE (10:00)
[2017-07-06] MEDS ORDERED: VANCOMYCIN 2,000 MG in SODIUM CHLORIDE 500 ML IVPB ONE (10:00)
[2017-07-06 10:19] LABS: BASO % 0.5 % (0-2.0); EOS % 1.9 % (0-4.5); HEMATOCRIT 38.7 % (35.4-49); HEMOGLOBIN 13.4 GM/dL (11.7-16.9); LYMPH % 20.5 % (8-40); MCH 31.1 pg (25.7-33.7); MCHC 34.6 g/dl (32.0-35.9); MEAN CELL VOLUME 89.9 fl (80-96); MEAN PLT VOLUME 10.6 fl (7.5-11.1); MONO % 7.7 % (3.8-10.2); NEUT % 69.4 % (42.8-82.8); PLATELET COUNT 172 K/MM3 (134-434); RBC 4.31 M/mm3 (4.00-5.60); RDW 13.6 % (11.9-15.9); WHITE BLOOD COUNT 5.6 K/mm3 (4.0-10.0)
[2017-07-06 10:20] LABS: ANION GAP 3 (8-16); BLOOD UREA NITROGEN 19 mg/dL (7-18); CALCIUM 8.4 mg/dL (8.5-10.1); CHLORIDE 106 mmol/L (98-107); CO2 31 mmol/L (21-32); CREATININE 1.1 mg/dL (0.7-1.3); GLUCOSE,RANDOM 164 mg/dL (74-106); POTASSIUM 4.1 mmol/L (3.5-5.1); SODIUM 140 mmol/L (136-145)
[2017-07-06 11:08] VITALS: TEMP 97.9
[2017-07-06 11:17] LABS: ERYTHROCYTE SEDIMENTATION RATE 23 mm/hr (0-20)
[2017-07-06 13:52] VITALS: BP 109/65; PULSE 82
== END 2017-07-06 13:45 | disposition home or self-care (01) ==
LOC: JINFUSION 08:56
PROVIDERS: ATTEND Internal Medicine Infectious Disease
DX: M86.672 Other chronic osteomyelitis, left ankle and foot (principal); E11.621 Type 2 diabetes mellitus with foot ulcer; L97.522 Non-pressure chronic ulcer of other part of left foot with fat layer exposed; Z79.4 Long term (current) use of insulin
CPT/HCPCS: 36415; 80048; 85025; 85651; 86140; 96365; 96366

== ENCOUNTER 2017-07-07 08:51 | Day surgery (SDC) | payer OTHER ==
[2017-07-07] MEDS ORDERED: VANCOMYCIN 2,000 MG in SODIUM CHLORIDE 500 ML IVPB ONE (09:30)
[2017-07-07 09:45] VITALS: TEMP 97.8
[2017-07-07 13:20] VITALS: BP 112/80; PULSE 100
== END 2017-07-07 12:55 | disposition home or self-care (01) ==
LOC: JINFUSION 08:51
PROVIDERS: ATTEND Internal Medicine Infectious Disease
DX: M86.672 Other chronic osteomyelitis, left ankle and foot (principal); E11.621 Type 2 diabetes mellitus with foot ulcer; L97.522 Non-pressure chronic ulcer of other part of left foot with fat layer exposed; Z79.4 Long term (current) use of insulin
CPT/HCPCS: 96365; 96366

== ENCOUNTER 2017-07-09 09:02 | Day surgery (SDC) | payer OTHER ==
[~2017-07-09 09:02] MED LIST changes: -VANCOMYCIN 1,500 MG in DEXTROSE 5%-WATER - 500 ML IVPB ONE; +VANCOMYCIN 2,000 MG in SODIUM CHLORIDE 500 ML IVPB ONE
[2017-07-09 13:25] VITALS: BP 99/62; PULSE 98; TEMP 98.1
== END 2017-07-09 12:35 | disposition home or self-care (01) ==
LOC: JINFUSION 09:02
PROVIDERS: ATTEND Internal Medicine Infectious Disease
DX: M86.672 Other chronic osteomyelitis, left ankle and foot (principal); E11.621 Type 2 diabetes mellitus with foot ulcer; L97.522 Non-pressure chronic ulcer of other part of left foot with fat layer exposed; Z79.4 Long term (current) use of insulin
CPT/HCPCS: 96365; 96366

== ENCOUNTER 2017-07-10 08:26 | Day surgery (SDC) | payer OTHER ==
[2017-07-10 09:54] VITALS: TEMP 98
[2017-07-10] MEDS ORDERED: VANCOMYCIN 2,000 MG in SODIUM CHLORIDE 500 ML IVPB ONE (10:00)
[2017-07-10 12:55] VITALS: BP 117/70; PULSE 86
== END 2017-07-10 12:00 | disposition home or self-care (01) ==
LOC: JINFUSION 08:26 → J7W 08:27 → JINFUSION 12:00
PROVIDERS: ATTEND Internal Medicine Infectious Disease
DX: M86.672 Other chronic osteomyelitis, left ankle and foot (principal); E11.621 Type 2 diabetes mellitus with foot ulcer; L97.522 Non-pressure chronic ulcer of other part of left foot with fat layer exposed; Z79.4 Long term (current) use of insulin
CPT/HCPCS: 96365; 96366

== ENCOUNTER 2017-07-11 08:50 | Day surgery (SDC) | payer OTHER ==
[2017-07-11 09:46] LABS: BASO % 0.6 % (0-2.0); HEMATOCRIT 38.6 % (35.4-49); HEMOGLOBIN 13.4 GM/dL (11.7-16.9); LYMPH % 22.9 % (8-40); MCH 30.8 pg (25.7-33.7); MCHC 34.8 g/dl (32.0-35.9); MEAN CELL VOLUME 88.5 fl (80-96); MEAN PLT VOLUME 9.8 fl (7.5-11.1); MONO % 7.5 % (3.8-10.2); PLATELET COUNT 172 K/MM3 (134-434); RBC 4.36 M/mm3 (4.00-5.60); RDW 13.9 % (11.9-15.9); WHITE BLOOD COUNT 6.4 K/mm3 (4.0-10.0)
[2017-07-11] MEDS ORDERED: VANCOMYCIN 2,000 MG in SODIUM CHLORIDE 500 ML IVPB ONE (10:15)
[2017-07-11 10:41] LABS: ANION GAP 8 (8-16); BLOOD UREA NITROGEN 27 mg/dL (7-18); CALCIUM 8.2 mg/dL (8.5-10.1); CHLORIDE 105 mmol/L (98-107); CO2 25 mmol/L (21-32); CREATININE 1.1 mg/dL (0.7-1.3); GLUCOSE,RANDOM 191 mg/dL (74-106); POTASSIUM 4.1 mmol/L (3.5-5.1); SODIUM 138 mmol/L (136-145)
[2017-07-11 11:26] LABS: ERYTHROCYTE SEDIMENTATION RATE 19 mm/hr (0-20)
[2017-07-11 14:08] VITALS: BP 118/65; PULSE 95; TEMP 97.1
== END 2017-07-11 14:10 | disposition home or self-care (01) ==
LOC: JINFUSION 08:50 → J7W 08:50 → JINFUSION 14:10
PROVIDERS: ATTEND Internal Medicine Infectious Disease
DX: M86.672 Other chronic osteomyelitis, left ankle and foot (principal); E11.621 Type 2 diabetes mellitus with foot ulcer; L97.522 Non-pressure chronic ulcer of other part of left foot with fat layer exposed; Z79.4 Long term (current) use of insulin
CPT/HCPCS: 36415; 80048; 85025; 85651; 86140; 96365; 96366; G0480

== ENCOUNTER 2017-07-12 08:33 | Day surgery (SDC) | payer OTHER ==
[2017-07-12] MEDS ORDERED: VANCOMYCIN 2,000 MG in SODIUM CHLORIDE 500 ML IVPB ONE (09:45)
[2017-07-12 10:57] VITALS: TEMP 97.9
[2017-07-12 13:20] VITALS: BP 119/75; PULSE 84
== END 2017-07-12 13:45 | disposition home or self-care (01) ==
LOC: JINFUSION 08:33
PROVIDERS: ATTEND Internal Medicine Infectious Disease
DX: M86.672 Other chronic osteomyelitis, left ankle and foot (principal); E11.621 Type 2 diabetes mellitus with foot ulcer; L97.522 Non-pressure chronic ulcer of other part of left foot with fat layer exposed; Z79.4 Long term (current) use of insulin
CPT/HCPCS: 96365; 96366

== ENCOUNTER 2017-07-12 13:47 | Inpatient (IN) | payer OTHER ==
[2017-07-12 14:03] VITALS: BMI 27.3
--- NOTE | 2017-07-12 17:27 | PDOC ---
Attending Attestation - Resident Resident Name: Luisito William - ED Attending Attestation I have performed the following: I have examined & evaluated the patient, The case was reviewed & discussed with the resident, I agree w/resident's findings & plan, Exceptions are as noted - HPI HPI: 07/12/17 18:22 51y M hx of dm, htn, presents with L foot ulcer, has been getting abx throug [facility] line, with improvement of sypmtoms, but still has increased pain. ID had increased his abx to BID, so was sent to the ED for admission. pt has no othe rcomplaints including fever/chills, enlargement of wound, redness , increased discharge on exam pt wel lappearing in no distress picc line in arm c/d/i abd soft nontender cardiac exam rrr, no m/r/g pulm cta to ascultation ulcer w/ clean margins in the L distal foot will get labs anticipate admission for further management of his ulcer - Physicial Exam PE: 07/15/17 09:20 see above - Medical Decision Making 07/12/17 21:[address] omer - notes his vanco trough is subtherapeutic on maximum dose of vancomycin and needs to get his vanc bid case dw. dr. manley, agree with admission for furhter management Heart Score/ECG Review - ECG Impressions Comment:: 07/13/17 00:19 Twelve-lead EKG was performed and reviewed by me. EKG perfromed at 07/12/2017 22:43:58 Rate of [address] changes suggesit of acute ischemia
--- NOTE | 2017-07-12 17:53 | PDOC ---
History of Present Illness <Kevin Hodges - Last Filed: 07/12/17 21:32> - History of Present Illness Initial Comments: 07/12/17 18:03 The patient is a 51 year old male with a history of HTN, DM who presents for admission for a diabetic foot ulcer. The patient reports a several month history of a left sole diabetic foot ulcer for which he has been managed at wound care for. He has been receiving iv antibiotics through a pic line over the past 7 days, however he is unable to make the trip to the hospital to continue to receive his antibiotics and has opted for admission for further treatment. The patient reports that the pain in his foot has improved since beginning iv antibiotics, but continues to remain symptomatic. The patient otherwise denies fevers, chills, SOB, chest pain, nausea, vomiting, abdominal pain, or changes with urination or bowel movements. <Luisito William - Last Filed: 07/13/17 07:50> - General Chief Complaint: Wound Stated Complaint: WOUND INFECTION Time Seen by Provider: 07/12/17 17:07 Past History <Kevin Hodges - Last Filed: 07/12/17 21:32> - Past Medical History Anemia: No Asthma: No Cancer: No Cardiac Disorders: (Afib) CVA: No COPD: No DVT: No Dementia: No Diabetes: Yes Dialysis: No GI Disorders: No Disorders: No HTN: Yes Hypercholesterolemia: No Kidney Stones: No Liver Disease: No Psychiatric Problems: No Seizures: No Thyroid Disease: No Lung CA: No - Surgical History Orthopedic Surgery: Yes - Suicide/Smoking/Psychosocial Hx Smoking History: Never smoked Have you smoked in the past 12 months: No Information on smoking cessation initiated: No Hx Alcohol Use: No Drug/Substance Use Hx: No Substance Use Type: None <Luisito William - Last Filed: 07/13/17 07:50> - Past Medical History Allergies/Adverse Reactions: Allergies Allergy/AdvReac Type Severity Reaction Status Date / Time No Known Allergies Allergy Verified 07/12/17 13:59 Home Medications: Ambulatory Orders Apixaban [Eliquis] 5 mg PO BID #60 tablet 04/16/17 Metformin HCl [Glucophage] 1,000 mg PO BID #60 tablet 04/16/17 Acetaminophen [Tylenol] 650 mg PO Q4H #30 tablet 06/10/17 Glipizide 5 mg PO DAILY 06/14/17 Diltiazem HCl [Diltiazem 24Hr Cd] 120 mg PO DAILY 06/30/17 Vancomycin 2 gm IVPB DAILY 06/30/17 Review of Systems - Review of Systems Comments:: 07/12/17 18:10 Constitutional: No fevers, chills, fatigue, malaise HEENT: No Rhinorrhea, nasal congestion, visual changes Cardiovascular: No chest pain, syncope, palpitations, lightheadedness Respiratory: No Cough, SOB, Hemoptysis, Gastrointestinal: No Abdominal pain, Nausea, Vomiting, Constipation, Diarrhea, Melena Genitourinary: No Dysuria, Frequency, Urgency, Hesitancy, Hematuria, Flank pain Musculoskeletal: No Myalgia, arthralgia Skin: Left diabetic foot ulcer. No rashes, itching, bruising, pallor Neurologic: No Headache, Dizziness, Numbness, Weakness, or Tingling Psychiatric: No Hallucinations. No SI or HI <Luisito William - Last Filed: 07/13/17 07:50> *Physical Exam - Vital Signs Last Vital Signs Temp Pulse Resp BP Pulse Ox 98.3 F 100 H 18 104/70 100 07/12/17 14:00 07/12/17 14:00 07/12/17 14:00 07/12/17 14:00 07/12/17 14:00 <Kevin Hodges - Last Filed: 07/12/17 21:32> - Vital Signs Last Vital Signs Temp Pulse Resp BP Pulse Ox 98.3 F 100 H 18 104/70 100 07/12/17 14:00 07/12/17 14:00 07/12/17 14:00 07/12/17 14:00 07/12/17 14:00 - Physical Exam Comments: 07/12/17 18:11 General Appearance: Nourished. No Apparent Distress HEENT: EOMI, TERA. No Pharyngeal Erythema, Tonsillar Exudate, Tonsillar Erythema Neck: No Cervical Lymphadenopathy Respiratory/Chest: Lungs Clear, Normal Breath Sounds. No Crackles, Rales, Rhonchi, Wheezing Cardiovascular: Regular Rhythm, Regular Rate. No Murmur, Gallops, Rubs Gastrointestinal/Abdominal: Normal Bowel Sounds, Soft. No Guarding, Rebound, Tenderness Musculoskeletal: No CVA Tenderness Extremity: Right arm pic line in place. Left diabetic foot ulcer to the sole of the foot without surrounding erythema. Normal Capillary Refill Integumentary: Normal Color, Dry, Warm Neurologic: Fully Oriented, Alert, Normal Mood/Affect, Normal Response, <Luisito William - Last Filed: 07/13/17 07:50> ED Treatment Course - LABORATORY CBC & Chemistry Diagram: 07/12/17 20:15 07/12/17 20:15 - ADDITIONAL ORDERS Additional order review: Laboratory Results 07/12/17 07/12/17 20:15 20:15 WBC 5.4 RBC 4.11 Hgb 12.8 Hct 36.4 MCV 88.6 MCH 31.2 MCHC 35.2 RDW 14.1 Plt Count 168 MPV 9.2 Neutrophils % 58.1 Lymphocytes % 28.8 D Monocytes % 9.2 Eosinophils % 2.9 Basophils % 1.0 Sodium 142 Potassium 3.8 Chloride 110 H Carbon Dioxide 26 Anion Gap 6 L BUN 23 H Creatinine 1.0 Creat Clearance w eGFR > 60 Random Glucose 137 H D Calcium 8.9 Total Bilirubin 0.2 D AST 12 L D ALT 20 Alkaline Phosphatase 121 H Total Protein 7.4 Albumin 3.9 07/12/17 20:15 RBC 4.11 MCV 88.6 MCHC 35.2 RDW 14.1 MPV 9.2 Neutrophils % 58.1 Lymphocytes % 28.8 D Monocytes % 9.2 Eosinophils % 2.9 Basophils % 1.0 <Kevin Hodges - Last Filed: 07/12/17 21:32> - LABORATORY CBC & Chemistry Diagram: 07/12/17 20:15 07/12/17 20:15 - RADIOLOGY Radiology Studies Ordered: Category Date Time Status FOOT-LEFT [RAD] Stat Radiology 07/12/17 17:40 Ordered <Luisito William - Last Filed: 07/13/17 07:50> Medical Decision Making - Medical Decision Making 07/12/17 18:12 The patient is a 51 year old male with a history of HTN, DM who presents for admission for a diabetic foot ulcer. Given the patient's improvement with iv antibiotics, he will require further treatment with iv antibiotics. We will obtain a cbc, cmp, blood cultures and plain films to evaluate further. We will continue to monitor and reassess. 07/12/17 18:49 Patient signed out to Dr. Abernathy pending lab results and admission. <Luisito William - Last Filed: 07/13/17 07:50> *DC/Admit/Observation/Transfer - Discharge Dispostion Admit: Yes <Kevin Hodges - Last Filed: 07/12/17 21:32> <Luisito William - Last Filed: 07/13/17 07:50> Diagnosis at time of Disposition: Diabetic foot infection Wound, open, foot Qualifiers: Encounter type: initial encounter Laterality: left Qualified Code(s): S91.302A - Unspecified open wound, left foot, initial encounter - Discharge Dispostion Condition at time of disposition: Guarded
[2017-07-12 20:25] LABS: EOS % 2.9 % (0-4.5); HEMATOCRIT 36.4 % (35.4-49); HEMOGLOBIN 12.8 GM/dL (11.7-16.9); LYMPH % 28.8 % (8-40); MCH 31.2 pg (25.7-33.7); MCHC 35.2 g/dl (32.0-35.9); MEAN CELL VOLUME 88.6 fl (80-96); MEAN PLT VOLUME 9.2 fl (7.5-11.1); MONO % 9.2 % (3.8-10.2); NEUT % 58.1 % (42.8-82.8); PLATELET COUNT 168 K/MM3 (134-434); RBC 4.11 M/mm3 (4.00-5.60); RDW 14.1 % (11.9-15.9); WHITE BLOOD COUNT 5.4 K/mm3 (4.0-10.0)
[2017-07-12 20:49] LABS: ALBUMIN 3.9 g/dl (3.4-5.0); ALK PHOS 121 U/L (45-117); ANION GAP 6 (8-16); BILIRUBIN,TOTAL 0.2 mg/dL (0.2-1.0); BLOOD UREA NITROGEN 23 mg/dL (7-18); CALCIUM 8.9 mg/dL (8.5-10.1); CHLORIDE 110 mmol/L (98-107); CO2 26 mmol/L (21-32); GLUCOSE,RANDOM 137 mg/dL (74-106); POTASSIUM 3.8 mmol/L (3.5-5.1); SGOT/AST 12 U/L (15-37); SGPT/ALT 20 U/L (12-78); SODIUM 142 mmol/L (136-145); TOT PROT 7.4 g/dl (6.4-8.2)
[2017-07-12] MEDS ORDERED: VANCOMYCIN 1,000 MG in DEXTROSE 5%-WATER - 250 ML IVPB ONE (21:31)
--- NOTE | 2017-07-13 01:19 | HP ---
Admitting History and Physical - Primary Care Physician PCP: Shabbir Roca - Admission History of Present Illness: 51y M hx of dm, htn, presents with L foot ulcer, has been getting abx throug [facility] line, with improvement of sypmtoms, but still has increased pain. ID had increased his abx to BID, so was sent to the ED for admission. - Past Medical History Cardiovascular: Yes: AFIB, HTN Infectious Disease: Yes: Other (osteomyelitis) Endocrine: Yes: Diabetes Mellitus - Past Surgical History Past Surgical History: Yes: Amputation (Lt 1st toe partial amputation, Lt 4th toe amputation) - Smoking History Smoking history: Never smoked Have you smoked in the past 12 months: No - Alcohol/Substance Use Hx Alcohol Use: No Home Medications - Allergies Allergies/Adverse Reactions: Allergies Allergy/AdvReac Type Severity Reaction Status Date / Time No Known Allergies Allergy Verified 07/12/17 13:59 - Home Medications Home Medications: Ambulatory Orders Apixaban [Eliquis] 5 mg PO BID #60 tablet 04/16/17 Metformin HCl [Glucophage] 1,000 mg PO BID #60 tablet 04/16/17 Acetaminophen [Tylenol] 650 mg PO Q4H #30 tablet 06/10/17 Glipizide 5 mg PO DAILY 06/14/17 Diltiazem HCl [Diltiazem 24Hr Cd] 120 mg PO DAILY 06/30/17 Vancomycin 2 gm IVPB DAILY 06/30/17 Physical Examination Vital Signs: Vital Signs Temperature 98.3 F 07/12/17 14:00 Pulse Rate 100 H 07/12/17 14:00 Respiratory Rate 18 07/12/17 14:00 Blood Pressure 104/70 07/12/17 14:00 O2 Sat by Pulse Oximetry (%) 100 07/12/17 14:00 Constitutional: Yes: No Distress HENT: Yes: Atraumatic Neck: Yes: Supple Cardiovascular: Yes: Regular Rate and Rhythm Respiratory: Yes: CTA Bilaterally Gastrointestinal: Yes: Normal Bowel Sounds Extremities: Yes: Other (left foot cellulitis) Edema: Yes Neurological: Yes: Alert, Oriented Labs: CBC, BMP 07/12/17 20:15 07/12/17 20:15 Problem List - Problems (1) Diabetic foot infection Assessment/Plan: on iv abx per id Code(s): E11.628 - TYPE 2 DIABETES MELLITUS WITH OTHER SKIN COMPLICATIONS; L08.9 - LOCAL INFECTION OF THE SKIN AND SUBCUTANEOUS TISSUE, UNSP (2) Diabetes Assessment/Plan: on po meds bgm Code(s): E11.9 - TYPE 2 DIABETES MELLITUS WITHOUT COMPLICATIONS (3) HTN (hypertension) Assessment/Plan: on meds stable Code(s): I10 - ESSENTIAL (PRIMARY) HYPERTENSION Assessment/Plan Laboratory Tests 07/12/17 07/12/17 20:15 20:15 WBC 5.4 RBC 4.11 Hgb 12.8 Hct 36.4 MCV 88.6 MCH 31.2 MCHC 35.2 RDW 14.1 Plt Count 168 MPV 9.2 Neutrophils % 58.1 Lymphocytes % 28.8 D Monocytes % 9.2 Eosinophils % 2.9 Basophils % 1.0 Sodium 142 Potassium 3.8 Chloride 110 H Carbon Dioxide 26 Anion Gap 6 L BUN 23 H Creatinine 1.0 Creat Clearance w eGFR > 60 Random Glucose 137 H D Calcium 8.9 Total Bilirubin 0.2 D AST 12 L D ALT 20 Alkaline Phosphatase 121 H Total Protein 7.4 Albumin 3.9 Generic Name Dose Route Start Last Admin Trade Name Rubens PRN Reason Stop Dose Admin Apixaban 5 mg 07/13/17 10:00 07/14/17 09:05 Eliquis - PO 5 mg BID [facility] Administration Diltiazem HCl 120 mg 07/13/17 10:00 07/14/17 09:05 Cardizem Cd - PO 120 mg DAILY [facility] Administration Glipizide 5 mg 07/13/17 07:00 07/14/17 06:39 Glucotrol - PO 5 mg DAILY@0700 [facility] Administration Vancomycin HCl 2,000 mg/ 500 mls @ 250 mls/hr 07/14/17 20:00 Dextrose IVPB DAILY@2000 [facility] Vancomycin HCl 1,000 mg/ 250 mls @ 166.667 mls/hr 07/14/17 08:00 07/14/17 09: 05 Sodium Chloride IVPB 166.667 mls/hr DAILY@0800 [facility] Administration Metformin HCl 1,000 mg 07/13/17 07:00 07/14/17 16:53 Glucophage - PO 1,000 mg BIDAC [facility] Administration
[2017-07-13] MEDS: metFORMIN HCL 500 MG TABLET (FP) PO SCH ×2 (06:13→16:21)
[2017-07-13] MEDS: glipiZIDE 5 MG TABLET (FP) PO SCH (06:13)
[2017-07-13] MEDS ORDERED: PT OWN MED DRAWER 7, Y5N ONE (09:21)
[2017-07-13] MEDS: APIXABAN 5 MG TABLET PO SCH ×2 (09:23→21:01)
--- NOTE | 2017-07-13 10:33 | EKG ---
Test Reason : Blood Pressure : / mmHG Vent. Rate : 078 BPM Atrial Rate : 250 BPM P-R Int : 000 ms QRS Dur : 086 ms QT Int : 364 ms P-R-T Axes : 000 -16 004 degrees QTc Int : 414 ms ATRIAL FIBRILLATION ABNORMAL ECG RSR' OR QR PATTERN IN V1 SUGGESTS RIGHT VENTRICULAR CONDUCTION DELAY WHEN COMPARED WITH ECG OF 14-JUN-2017 14:03, ATRIAL FIBRILLATION HAS REPLACED SINUS RHYTHM Confirmed by MD Anthony, Luisito ([id number]) on 07/13/2017 10:32:44 AM Referred By: Confirmed By:Luisito Cruz MD
--- NOTE | 2017-07-13 17:44 | PN ---
Progress Note, Physician - Current Medication List Current Medications: Active Medications Apixaban (Eliquis -) 5 mg PO BID [facility] Last Admin: 07/13/17 09:23 Dose: 5 mg Diltiazem HCl (Cardizem Cd -) 120 mg PO DAILY [facility] Last Admin: 07/13/17 09:23 Dose: 120 mg Glipizide (Glucotrol -) 5 mg PO DAILY@0700 [facility] Last Admin: 07/13/17 06:13 Dose: 5 mg Metformin [facility] ([facility] -[facility] Last Admin: 07/13/17 16:21 Dose: 1,000 mg - Objective Vital Signs: Vital Signs Temperature 98.2 F 07/13/17 14:46 Pulse Rate 95 H 07/13/17 14:46 Respiratory Rate 20 07/13/17 14:46 Blood Pressure 104/61 07/13/17 14:46 O2 Sat by Pulse Oximetry (%) 98 07/13/17 09:00 Constitutional: Yes: No Distress HENT: Yes: Atraumatic Neck: Yes: Supple Cardiovascular: Yes: Regular Rate and Rhythm Respiratory: Yes: CTA Bilaterally Gastrointestinal: Yes: Normal Bowel Sounds Extremities: Yes: Other (left foot in dressing) Edema: No Neurological: Yes: Alert, Oriented Labs: CBC, BMP 07/12/17 20:15 07/12/17 20:15 Problem List - Problems (1) Diabetic foot infection Assessment/Plan: on iv abx per id Code(s): E11.628 - TYPE 2 DIABETES MELLITUS WITH OTHER SKIN COMPLICATIONS; L08.9 - LOCAL INFECTION OF THE SKIN AND SUBCUTANEOUS TISSUE, UNSP (2) Diabetes Assessment/Plan: on po meds bgm Code(s): E11.9 - TYPE 2 DIABETES MELLITUS WITHOUT COMPLICATIONS (3) HTN (hypertension) Assessment/Plan: on meds stable Code(s): I10 - ESSENTIAL (PRIMARY) HYPERTENSION
[2017-07-13] MEDS ORDERED: VANCOMYCIN 1,000 MG in DEXTROSE 5%-WATER - 250 ML IVPB ONE (18:45)
[2017-07-13] MEDS ORDERED: VANCOMYCIN 2,000 MG in DEXTROSE 5%-WATER - 500 ML IVPB ONE (18:45)
[2017-07-14] MEDS: glipiZIDE 5 MG TABLET (FP) PO SCH (06:39)
[2017-07-14] MEDS: metFORMIN HCL 500 MG TABLET (FP) PO SCH ×2 (06:39→16:53)
[2017-07-14] MEDS ORDERED: PT OWN MED DRAWER 7, Y5N ONE (08:50)
[2017-07-14] MEDS: VANCOMYCIN 1,000 MG in SODIUM CHLORIDE 250 ML IVPB SCH (09:05)
[2017-07-14] MEDS: APIXABAN 5 MG TABLET PO SCH ×2 (09:05→21:28)
--- NOTE | 2017-07-14 14:40 | CON.ID ---
Consult Consult Specialty:: infectious diseases Reason for Consultation:: abx - History of Present Illness History of Present Illness: 51y M hx of dm, htn, presents with L foot ulcer, has been getting abx throug his picc line, with improvement of sypmtoms, but still has increased pain. ID had increased his abx to BID, so was sent to the ED for admission. patients wound has healed well otherwise - History Source History Provided By: Patient Limitations to Obtaining History: Language Barrier - Past Medical History Cardio/Vascular: Yes: AFIB, HTN Infectious Disease: Yes: Other (osteomyelitis) Endocrine: Yes: Diabetes Mellitus - Past Surgical History Past Surgical History: Yes: Amputation (Lt 1st toe partial amputation, Lt 4th toe amputation) - Alcohol/Substance Use Hx Alcohol Use: No - Smoking History Smoking history: Never smoked Have you smoked in the past 12 months: No Home Medications - Allergies Allergies/Adverse Reactions: Allergies Allergy/AdvReac Type Severity Reaction Status Date / Time No Known Allergies Allergy Verified 07/12/17 13:59 - Home Medications Home Medications: Ambulatory Orders Apixaban [Eliquis] 5 mg PO BID #60 tablet 04/16/17 Metformin HCl [Glucophage] 1,000 mg PO BID #60 tablet 04/16/17 Acetaminophen [Tylenol] 650 mg PO Q4H #30 tablet 06/10/17 Glipizide 5 mg PO DAILY 06/14/17 Diltiazem HCl [Diltiazem 24Hr Cd] 120 mg PO DAILY 06/30/17 Vancomycin 2 gm IVPB DAILY 06/30/17 Review of Systems - Review of Systems Constitutional: reports: No Symptoms Eyes: reports: No Symptoms HENT: reports: No Symptoms Neck: reports: No Symptoms Cardiovascular: reports: No Symptoms Respiratory: reports: No Symptoms Gastrointestinal: reports: No Symptoms Genitourinary: reports: No Symptoms Musculoskeletal: reports: Other Integumentary: reports: No Symptoms Neurological: reports: No Symptoms Endocrine: reports: No Symptoms Hematology/Lymphatic: reports: No Symptoms Psychiatric: reports: No Symptoms Physical Exam Vital Signs: Vital Signs Temperature 97.7 F 07/14/17 08:59 Pulse Rate 87 07/14/17 08:59 Respiratory Rate 20 07/14/17 08:59 Blood Pressure 102/73 07/14/17 08:59 O2 Sat by Pulse Oximetry (%) 98 07/13/17 21:00 Constitutional: Yes: Well Nourished, No Distress, Calm Eyes: Yes: Conjunctiva Clear HENT: Yes: Atraumatic Neck: Yes: Supple, Trachea Midline Cardiovascular: Yes: Regular Rate and Rhythm Respiratory: Yes: Regular, CTA Bilaterally Gastrointestinal: Yes: Normal Bowel Sounds, Soft Musculoskeletal: Yes: Other Extremities: Yes: Other Wound/Incision: Yes: Clean/Dry Neurological: Yes: Alert, Oriented Psychiatric: Yes: Alert, Oriented Labs: CBC, BMP 07/12/17 20:15 07/12/17 20:15 Imaging - Results X-ray: Report Reviewed, Image Reviewed Assessment/Plan Problem List - Problems (1) Diabetic foot infection Code(s): E11.628 - TYPE 2 DIABETES MELLITUS WITH OTHER SKIN COMPLICATIONS; L08.9 - LOCAL INFECTION OF THE SKIN AND SUBCUTANEOUS TISSUE, UNSP (2) Diabetes Code(s): E11.9 - TYPE 2 DIABETES MELLITUS WITHOUT COMPLICATIONS (3) HTN (hypertension) Code(s): I10 - ESSENTIAL (PRIMARY) HYPERTENSION plan will,increase dose of vanco to 2 gm in the morning 1 gm in the evening follow vano trough rest as per primary team
--- NOTE | 2017-07-14 17:21 | PN ---
Progress Note, Physician - Current Medication List Current Medications: Active Medications Apixaban (Eliquis -) 5 mg PO BID [facility] Last Admin: 07/14/17 09:05 Dose: 5 mg Diltiazem HCl (Cardizem Cd -) 120 mg PO DAILY [facility] Last Admin: 07/14/17 09:05 Dose: 120 mg Glipizide (Glucotrol -) 5 mg PO DAILY@0700 [facility] Last Admin: 07/14/17 06:39 Dose: 5 mg Vancomycin HCl 2,000 mg/ (Dextrose) 500 mls @ 250 mls/hr IVPB DAILY@2000 [facility] Vancomycin HCl 1,000 mg/ (Sodium Chloride) 250 mls @ 166.667 mls/hr IVPB DAILY@ 0800 [facility] Last Admin: 07/14/17 09:05 Dose: 166.667 mls/hr [facility] Last Admin: 07/14/17 16:53 Dose: 1,000 mg - Objective Vital Signs: Vital Signs Temperature 97.4 F L 07/14/17 14:42 Pulse Rate 93 H 07/14/17 14:42 Respiratory Rate 20 07/14/17 14:42 Blood Pressure 115/54 07/14/17 14:42 O2 Sat by Pulse Oximetry (%) 98 07/14/17 09:00 Constitutional: Yes: No Distress HENT: Yes: Atraumatic Neck: Yes: Supple Cardiovascular: Yes: Regular Rate and Rhythm Respiratory: Yes: CTA Bilaterally Gastrointestinal: Yes: Normal Bowel Sounds Extremities: Yes: Other (left foot in dresing) Neurological: Yes: Alert, Oriented Labs: CBC, BMP 07/12/17 20:15 07/12/17 20:15 Problem List - Problems (1) Diabetic foot infection Assessment/Plan: on iv abx per id Code(s): E11.628 - TYPE 2 DIABETES MELLITUS WITH OTHER SKIN COMPLICATIONS; L08.9 - LOCAL INFECTION OF THE SKIN AND SUBCUTANEOUS TISSUE, UNSP (2) Diabetes Assessment/Plan: on po meds bgm Code(s): E11.9 - TYPE 2 DIABETES MELLITUS WITHOUT COMPLICATIONS (3) HTN (hypertension) Assessment/Plan: on meds stable Code(s): I10 - ESSENTIAL (PRIMARY) HYPERTENSION
[2017-07-14] MEDS: VANCOMYCIN 2,000 MG in DEXTROSE 5%-WATER - 500 ML IVPB SCH (20:40)
[2017-07-15] MEDS: metFORMIN HCL 500 MG TABLET (FP) PO SCH ×2 (06:13→17:31)
[2017-07-15] MEDS: glipiZIDE 5 MG TABLET (FP) PO SCH (06:13)
[2017-07-15] MEDS ORDERED: PT OWN MED DRAWER 7, Y5N ONE ×3 (07:23→20:57)
[2017-07-15] MEDS: VANCOMYCIN 1,000 MG in SODIUM CHLORIDE 250 ML IVPB SCH (08:07)
[2017-07-15] MEDS: APIXABAN 5 MG TABLET PO SCH ×2 (09:17→21:57)
--- NOTE | 2017-07-15 14:19 | PN ---
Progress Note, Physician History of Present Illness: stable no issues - Current Medication List Current Medications: Active Medications Apixaban (Eliquis -) 5 mg PO BID [facility] Last Admin: 07/15/17 09:17 Dose: 5 mg Diltiazem HCl (Cardizem Cd -) 120 mg PO DAILY [facility] Last Admin: 07/15/17 09:17 Dose: 120 mg Glipizide (Glucotrol -) 5 mg PO DAILY@0700 [facility] Last Admin: 07/15/17 06:13 Dose: 5 mg Vancomycin HCl 2,000 mg/ (Dextrose) 500 mls @ 250 mls/hr IVPB DAILY@2000 [facility] Last Admin: 07/14/17 20:40 Dose: 250 mls/hr Vancomycin HCl 1,000 mg/ (Sodium Chloride) 250 mls @ 166.667 mls/hr IVPB DAILY@ 0800 [facility] Last Admin: 07/15/17 08:07 Dose: 166.667 mls/hr Metformin HCl (Glucophage -) 1,000 mg PO BIDAC [facility] Last Admin: 07/15/17 06:13 Dose: 1,000 mg - Objective Vital Signs: Vital Signs Temperature 98.6 F 07/15/17 09:21 Pulse Rate 99 H 07/15/17 09:21 Respiratory Rate 18 07/15/17 09:21 Blood Pressure 114/76 07/15/17 09:21 O2 Sat by Pulse Oximetry (%) 98 07/14/17 21:00 Constitutional: Yes: No Distress, Calm Cardiovascular: Yes: Regular Rate and Rhythm Gastrointestinal: Yes: Normal Bowel Sounds, Soft Musculoskeletal: Yes: WNL Extremities: Yes: Other Wound/Incision: Yes: Clean/Dry Neurological: Yes: Alert, Oriented Psychiatric: Yes: Alert Labs: CBC, BMP 07/12/17 20:15 07/12/17 20:15 Assessment/Plan Problem List - Problems (1) Diabetic foot infection Code(s): E11.628 - TYPE 2 DIABETES MELLITUS WITH OTHER SKIN COMPLICATIONS; L08.9 - LOCAL INFECTION OF THE SKIN AND SUBCUTANEOUS TISSUE, UNSP (2) Diabetes Code(s): E11.9 - TYPE 2 DIABETES MELLITUS WITHOUT COMPLICATIONS (3) HTN (hypertension) Code(s): I10 - ESSENTIAL (PRIMARY) HYPERTENSION plan contine vanco await for vanco trough rest as per primary team
--- NOTE | 2017-07-15 17:25 | PN ---
Progress Note, Physician - Current Medication List Current Medications: Active Medications Apixaban (Eliquis -) 5 mg PO BID [facility] Last Admin: 07/15/17 09:17 Dose: 5 mg Diltiazem HCl (Cardizem Cd -) 120 mg PO DAILY [facility] Last Admin: 07/15/17 09:17 Dose: 120 mg Glipizide (Glucotrol -) 5 mg PO DAILY@0700 [facility] Last Admin: 07/15/17 06:13 Dose: 5 mg Vancomycin HCl 2,000 mg/ (Dextrose) 500 mls @ 250 mls/hr IVPB DAILY@2000 [facility] Last Admin: 07/14/17 20:40 Dose: 250 mls/hr Vancomycin HCl 1,000 mg/ (Sodium Chloride) 250 mls @ 166.667 mls/hr IVPB DAILY@ 0800 [facility] Last Admin: 07/15/17 08:07 Dose: 166.667 mls/hr [facility] Last Admin: 07/15/17 06:13 Dose: 1,000 mg - Objective Vital Signs: Vital Signs Temperature 97.9 F 07/15/17 14:27 Pulse Rate 87 07/15/17 14:27 Respiratory Rate 20 07/15/17 14:27 Blood Pressure 109/69 07/15/17 14:27 O2 Sat by Pulse Oximetry (%) 98 07/14/17 21:00 Constitutional: Yes: No Distress HENT: Yes: Atraumatic Neck: Yes: Supple Cardiovascular: Yes: Regular Rate and Rhythm Respiratory: Yes: CTA Bilaterally Gastrointestinal: Yes: Normal Bowel Sounds Extremities: Yes: WNL, Other (left foot cellulitis) Neurological: Yes: Alert, Oriented Labs: CBC, BMP 07/12/17 20:15 07/12/17 20:15 Problem List - Problems (1) Diabetic foot infection Assessment/Plan: on iv abx per id Code(s): E11.628 - TYPE 2 DIABETES MELLITUS WITH OTHER SKIN COMPLICATIONS; L08.9 - LOCAL INFECTION OF THE SKIN AND SUBCUTANEOUS TISSUE, UNSP (2) Diabetes Assessment/Plan: on po meds bgm Code(s): E11.9 - TYPE 2 DIABETES MELLITUS WITHOUT COMPLICATIONS (3) HTN (hypertension) Assessment/Plan: on meds stable Code(s): I10 - ESSENTIAL (PRIMARY) HYPERTENSION
[2017-07-15] MEDS: VANCOMYCIN 2,000 MG in DEXTROSE 5%-WATER - 500 ML IVPB SCH (21:52)
[2017-07-16] MEDS: metFORMIN HCL 500 MG TABLET (FP) PO SCH ×2 (06:03→17:11)
[2017-07-16] MEDS: glipiZIDE 5 MG TABLET (FP) PO SCH (06:03)
[2017-07-16] MEDS: VANCOMYCIN 1,000 MG in SODIUM CHLORIDE 250 ML IVPB SCH ×2 (08:15→09:59)
[2017-07-16] MEDS ORDERED: PT OWN MED DRAWER 7, Y5N ONE ×2 (10:11→22:27)
[2017-07-16] MEDS: APIXABAN 5 MG TABLET PO SCH ×2 (10:16→22:29)
--- NOTE | 2017-07-16 14:46 | PN ---
Progress Note, Physician - Current Medication List Current Medications: Active Medications Apixaban (Eliquis -) 5 mg PO BID [facility] Last Admin: 07/16/17 10:16 Dose: 5 mg Diltiazem HCl (Cardizem Cd -) 120 mg PO DAILY [facility] Last Admin: 07/16/17 10:16 Dose: Not Given Glipizide (Glucotrol -) 5 mg PO DAILY@0700 [facility] Last Admin: 07/16/17 06:03 Dose: 5 mg Vancomycin HCl 2,000 mg/ (Dextrose) 500 mls @ 250 mls/hr IVPB DAILY@2000 [facility] Last Admin: 07/15/17 21:52 Dose: Not Given Vancomycin HCl 1,000 mg/ (Sodium Chloride) 250 mls @ 166.667 mls/hr IVPB DAILY@ 0800 [facility] Last Admin: 07/16/17 09:59 Dose: 166.667 mls/hr [facility] ([facility] -) [facility] Last Admin: 07/16/17 06:03 Dose: 1,000 mg - Objective Vital Signs: Vital Signs Temperature 98.4 F 07/16/17 10:00 Pulse Rate 80 07/16/17 10:00 Respiratory Rate 20 07/16/17 10:00 Blood Pressure 097/58 07/16/17 10:00 O2 Sat by Pulse Oximetry (%) 98 07/15/17 21:00 Constitutional: Yes: No Distress HENT: Yes: Atraumatic Neck: Yes: Supple Cardiovascular: Yes: Regular Rate and Rhythm Respiratory: Yes: CTA Bilaterally Gastrointestinal: Yes: Normal Bowel Sounds Extremities: Yes: Other (left foot cellulitis) Neurological: Yes: Alert, Oriented Labs: CBC, BMP 07/12/17 20:15 07/12/17 20:15 Problem List - Problems (1) Diabetic foot infection Assessment/Plan: on iv abx per id Code(s): E11.628 - TYPE 2 DIABETES MELLITUS WITH OTHER SKIN COMPLICATIONS; L08.9 - LOCAL INFECTION OF THE SKIN AND SUBCUTANEOUS TISSUE, UNSP (2) Diabetes Assessment/Plan: on po meds bgm Code(s): E11.9 - TYPE 2 DIABETES MELLITUS WITHOUT COMPLICATIONS (3) HTN (hypertension) Assessment/Plan: on meds stable Code(s): I10 - ESSENTIAL (PRIMARY) HYPERTENSION Qualifiers: Hypertension type: essential hypertension Qualified Code(s): I10 - Essential (primary) hypertension
--- NOTE | 2017-07-16 15:15 | PN ---
Progress Note, Physician History of Present Illness: stable no issues - Current Medication List Current Medications: Active Medications Apixaban (Eliquis -) 5 mg PO BID [facility] Last Admin: 07/16/17 10:16 Dose: 5 mg Diltiazem HCl (Cardizem Cd -) 120 mg PO DAILY [facility] Last Admin: 07/16/17 10:16 Dose: Not Given Glipizide (Glucotrol -) 5 mg PO DAILY@0700 [facility] Last Admin: 07/16/17 06:03 Dose: 5 mg Vancomycin HCl 2,000 mg/ (Dextrose) 500 mls @ 250 mls/hr IVPB DAILY@2000 [facility] Last Admin: 07/15/17 21:52 Dose: Not Given Vancomycin HCl 1,000 mg/ (Sodium Chloride) 250 mls @ 166.667 mls/hr IVPB DAILY@ 0800 [facility] Last Admin: 07/16/17 09:59 Dose: 166.667 mls/hr Metformin HCl (Glucophage -) 1,000 mg PO BIDAC [facility] Last Admin: 07/16/17 06:03 Dose: 1,000 mg - Objective Vital Signs: Vital Signs Temperature 98.4 F 07/16/17 10:00 Pulse Rate 80 07/16/17 10:00 Respiratory Rate 20 07/16/17 10:00 Blood Pressure 097/58 07/16/17 10:00 O2 Sat by Pulse Oximetry (%) 98 07/15/17 21:00 Constitutional: Yes: No Distress, Calm Cardiovascular: Yes: Regular Rate and Rhythm Respiratory: Yes: Regular, CTA Bilaterally Gastrointestinal: Yes: Normal Bowel Sounds, Soft Extremities: Yes: WNL, Other Wound/Incision: Yes: Clean/Dry Neurological: Yes: Alert, Oriented Psychiatric: Yes: Alert, Oriented Labs: CBC, BMP 07/12/17 20:15 07/12/17 20:15 Assessment/Plan Problem List - Problems (1) Diabetic foot infection Code(s): E11.628 - TYPE 2 DIABETES MELLITUS WITH OTHER SKIN COMPLICATIONS; L08.9 - LOCAL INFECTION OF THE SKIN AND SUBCUTANEOUS TISSUE, UNSP (2) Diabetes Code(s): E11.9 - TYPE 2 DIABETES MELLITUS WITHOUT COMPLICATIONS (3) HTN (hypertension) Code(s): I10 - ESSENTIAL (PRIMARY) HYPERTENSION plan contine vanco vanco trough noted dose adjusted rest as per primary team
[2017-07-16] MEDS: VANCOMYCIN 2,000 MG in DEXTROSE 5%-WATER - 500 ML IVPB SCH (21:36)
[2017-07-16] MEDS ORDERED: VANCOMYCIN 1,000 MG in DEXTROSE 5%-WATER - 100 ML IVPB ONE (22:00)
[2017-07-16] MEDS ORDERED: VANCOMYCIN 500 MG in DEXTROSE 5%-WATER - 100 ML IVPB ONE (22:00)
[2017-07-17] MEDS: glipiZIDE 5 MG TABLET (FP) PO SCH (06:03)
[2017-07-17] MEDS: metFORMIN HCL 500 MG TABLET (FP) PO SCH ×2 (06:03→17:28)
[2017-07-17] MEDS: VANCOMYCIN 1,000 MG in SODIUM CHLORIDE 250 ML IVPB SCH ×2 (08:00→11:23)
[2017-07-17] MEDS ORDERED: PT OWN MED DRAWER 7, Y5N ONE ×2 (09:53→20:52)
[2017-07-17] MEDS: APIXABAN 5 MG TABLET PO SCH ×2 (09:55→21:27)
[2017-07-17] MEDS ORDERED: VANCOMYCIN 1,000 MG in DEXTROSE 5%-WATER - 250 ML IVPB ONE (13:23)
--- NOTE | 2017-07-17 13:49 | PN ---
Progress Note, Physician History of Present Illness: Pt seen and examined. States he feels well. Denies pain in Lt foot, fever, chills. No new complaints. - Current Medication List Current Medications: Active Medications Apixaban (Eliquis -) 5 mg PO BID [facility] Last Admin: 07/17/17 09:55 Dose: 5 mg Diltiazem HCl (Cardizem Cd -) 120 mg PO DAILY [facility] Last Admin: 07/17/17 12:03 Dose: 120 mg Glipizide (Glucotrol -) 5 mg PO DAILY@0700 [facility] Last Admin: 07/17/17 06:03 Dose: 5 mg Vancomycin HCl 500 mg/ (Dextrose) 100 mls @ 100 mls/hr IVPB Q24H [facility] Vancomycin HCl 2,000 mg/ (Dextrose) 500 mls @ 200 mls/hr IVPB Q24H [facility] Metformin HCl (Glucophage -) 1,000 mg PO BIDAC [facility] Last Admin: 07/17/17 06:03 Dose: 1,000 mg - Objective Vital Signs: Vital Signs Temperature 98 F 07/17/17 09:48 Pulse Rate 110 H 07/17/17 11:59 Respiratory Rate 20 07/17/17 11:59 Blood Pressure 98/50 07/17/17 11:59 O2 Sat by Pulse Oximetry (%) 97 07/16/17 21:00 Constitutional: Yes: No Distress, Calm Neck: Yes: Supple Cardiovascular: Yes: Regular Rate and Rhythm Respiratory: Yes: Regular Gastrointestinal: Yes: Normal Bowel Sounds, Soft Genitourinary: Yes: WNL Wound/Incision: Yes: Clean/Dry (Lt plantar ulcer dry, no erythema/warmth/ tenderness) Neurological: Yes: Alert, Oriented Labs: CBC, BMP 07/12/17 20:15 07/12/17 20:15 CBC, BMP 07/12/17 20:15 07/12/17 20:15 Vanco level - 13 Problem List - Problems (1) Diabetic foot infection Code(s): E11.628 - TYPE 2 DIABETES MELLITUS WITH OTHER SKIN COMPLICATIONS; L08.9 - LOCAL INFECTION OF THE SKIN AND SUBCUTANEOUS TISSUE, UNSP (2) Afib Code(s): I48.91 - UNSPECIFIED ATRIAL FIBRILLATION (3) Cellulitis Code(s): L03.90 - CELLULITIS, UNSPECIFIED Qualifiers: Site of cellulitis: extremity Site of cellulitis of extremity: toe Laterality: left Qualified Code(s): L03.032 - Cellulitis of left toe (4) Diabetes Code(s): E11.9 - TYPE 2 DIABETES MELLITUS WITHOUT COMPLICATIONS (5) Osteomyelitis of toe Code(s): M86.9 - OSTEOMYELITIS, UNSPECIFIED Assessment/Plan 51 y.o. male with hx of DM, Afib, OM s/p Lt foot toe amputations Lt foot Cellulitis, DM ulcer/ Lt submetarsal OM appears to be healing -- adjusted dose of vancomycin - dosing history d/w Dr. Rodney -- f/u renal function, vancomycin levels closely -- tight glycemic control
--- NOTE | 2017-07-17 17:00 | PN ---
Progress Note, Physician - Current Medication List Current Medications: Active Medications Apixaban (Eliquis -) 5 mg PO BID [facility] Last Admin: 07/17/17 09:55 Dose: 5 mg Diltiazem HCl (Cardizem Cd -) 120 mg PO DAILY [facility] Last Admin: 07/17/17 12:03 Dose: 120 mg Glipizide (Glucotrol -) 5 mg PO DAILY@0700 [facility] Last Admin: 07/17/17 06:03 Dose: 5 mg Vancomycin HCl 500 mg/ (Dextrose) 100 mls @ 100 mls/hr IVPB Q24H [facility] Vancomycin HCl 2,000 mg/ (Dextrose) 500 mls @ 200 mls/hr IVPB Q24H [facility] -[facility] Last Admin: 07/17/17 06:03 Dose: 1,000 mg - Objective Vital Signs: Vital Signs Temperature 98.0 F 07/17/17 15:29 Pulse Rate 115 H 07/17/17 15:29 Respiratory Rate 20 07/17/17 15:29 Blood Pressure 113/78 07/17/17 15:29 O2 Sat by Pulse Oximetry (%) 97 07/16/17 21:00 Constitutional: Yes: No Distress HENT: Yes: Atraumatic Neck: Yes: Supple Cardiovascular: Yes: Regular Rate and Rhythm Respiratory: Yes: CTA Bilaterally Gastrointestinal: Yes: Normal Bowel Sounds Extremities: Yes: WNL Neurological: Yes: Alert, Oriented Labs: CBC, BMP 07/12/17 20:15 07/12/17 20:15 Problem List - Problems (1) Diabetic foot infection Assessment/Plan: on iv abx per id Code(s): E11.628 - TYPE 2 DIABETES MELLITUS WITH OTHER SKIN COMPLICATIONS; L08.9 - LOCAL INFECTION OF THE SKIN AND SUBCUTANEOUS TISSUE, UNSP (2) Diabetes Assessment/Plan: on po meds bgm Code(s): E11.9 - TYPE 2 DIABETES MELLITUS WITHOUT COMPLICATIONS (3) HTN (hypertension) Assessment/Plan: on meds stable Code(s): I10 - ESSENTIAL (PRIMARY) HYPERTENSION Qualifiers: Hypertension type: essential hypertension Qualified Code(s): I10 - Essential (primary) hypertension
[2017-07-17] MEDS: VANCOMYCIN 500 MG in DEXTROSE 5%-WATER - 100 ML IVPB SCH (21:27)
[2017-07-18] MEDS: metFORMIN HCL 500 MG TABLET (FP) PO SCH ×2 (06:14→17:34)
[2017-07-18] MEDS: glipiZIDE 5 MG TABLET (FP) PO SCH (06:15)
[2017-07-18 07:39] LABS: ANION GAP 3 (8-16); BLOOD UREA NITROGEN 24 mg/dL (7-18); CALCIUM 8.2 mg/dL (8.5-10.1); CHLORIDE 105 mmol/L (98-107); CO2 30 mmol/L (21-32); CREATININE 1.1 mg/dL (0.7-1.3); GLUCOSE,RANDOM 129 mg/dL (74-106); POTASSIUM 4.1 mmol/L (3.5-5.1); SODIUM 138 mmol/L (136-145)
[2017-07-18] MEDS: VANCOMYCIN 2,000 MG in DEXTROSE 5%-WATER - 500 ML IVPB SCH (09:01)
[2017-07-18] MEDS ORDERED: PT OWN MED DRAWER 7, Y5N ONE ×2 (09:52→20:05)
[2017-07-18] MEDS: APIXABAN 5 MG TABLET PO SCH ×2 (09:52→21:10)
--- NOTE | 2017-07-18 12:27 | CON.CARD ---
Consult Consult Specialty:: Cardiology Referred by:: Shabbir Roca MD Reason for Consultation:: Rapid afib - History of Present Illness Chief Complaint: Left foot ulcer History of Present Illness: 51y M hx of dm, htn, persistent afib on NOAC admitted for chronic left osteomyelitis, has been getting abx through his picc line, with improvement of symptoms, but still has increased pain. Had Cardizem held for borderline hypotension with consequent increase in ventricular response, denies chest pain , dyspnea, palpitations, near or true syncope. - History Source History Provided By: Patient Limitations to Obtaining History: No Limitations - Past Medical History Cardio/Vascular: Yes: AFIB, HTN Infectious Disease: Yes: Other (osteomyelitis) Endocrine: Yes: Diabetes Mellitus - Past Surgical History Past Surgical History: Yes: Amputation (Lt 1st toe partial amputation, Lt 4th toe amputation) - Alcohol/Substance Use Hx Alcohol Use: No - Smoking History Smoking history: Never smoked Have you smoked in the past 12 months: No Home Medications - Allergies Allergies/Adverse Reactions: Allergies Allergy/AdvReac Type Severity Reaction Status Date / Time No Known Allergies Allergy Verified 07/12/17 13:59 - Home Medications Home Medications: Ambulatory Orders Apixaban [Eliquis] 5 mg PO BID #60 tablet 04/16/17 Metformin HCl [Glucophage] 1,000 mg PO BID #60 tablet 04/16/17 Acetaminophen [Tylenol] 650 mg PO Q4H #30 tablet 06/10/17 Glipizide 5 mg PO DAILY 06/14/17 Diltiazem HCl [Diltiazem 24Hr Cd] 120 mg PO DAILY 06/30/17 Vancomycin 2 gm IVPB DAILY 06/30/17 Review of Systems - Review of Systems Musculoskeletal: reports: Extremity Pain (Left foot) Vital Signs: Vital Signs Temperature 97.3 F L 07/18/17 09:31 Pulse Rate 100 H 07/18/17 09:31 Respiratory Rate 20 07/18/17 09:31 Blood Pressure 107/75 07/18/17 09:31 O2 Sat by Pulse Oximetry (%) 98 07/17/17 21:00 Constitutional: Yes: No Distress, Calm Neck: Yes: Supple Respiratory: Yes: Regular, CTA Bilaterally Gastrointestinal: Yes: Normal Bowel Sounds, Soft Cardiovascular: Yes: Pulse Irregular JVD: No Carotid Bruit: No Heart Sounds: Yes: S1, S2 Extremities: Yes: Amputation (Left toes) Edema: No - Other Data Labs, Other Data: CBC, BMP 07/12/17 20:15 07/18/17 07:00 Afib @ 78 Imaging - Results X-ray: Report Reviewed (Possible left foot osteomyelitis) Problem List - Problems (1) Diabetic foot infection Code(s): E11.628 - TYPE 2 DIABETES MELLITUS WITH OTHER SKIN COMPLICATIONS; L08.9 - LOCAL INFECTION OF THE SKIN AND SUBCUTANEOUS TISSUE, UNSP (2) Afib Code(s): I48.91 - UNSPECIFIED ATRIAL FIBRILLATION Qualifiers: Atrial fibrillation type: persistent Qualified Code(s): I48.1 - Persistent atrial fibrillation (3) Cellulitis Code(s): L03.90 - CELLULITIS, UNSPECIFIED Qualifiers: Site of cellulitis: extremity Site of cellulitis of extremity: toe Laterality: left Qualified Code(s): L03.032 - Cellulitis of left toe (4) HTN (hypertension) Code(s): I10 - ESSENTIAL (PRIMARY) HYPERTENSION Qualifiers: Hypertension type: essential hypertension Qualified Code(s): I10 - Essential (primary) hypertension (5) Osteomyelitis of toe Code(s): M86.9 - OSTEOMYELITIS, UNSPECIFIED (6) Wound infection Code(s): T14.8XXA - OTHER INJURY OF UNSPECIFIED BODY REGION, INITIAL ENCOUNTER; L08.9 - LOCAL INFECTION OF THE SKIN AND SUBCUTANEOUS TISSUE, UNSP Assessment/Plan 1. Persistent atrial fibrillation with RVR [id number] on NOAC 2. Diabetic foot infection/cellulitis, osteomyelitis of left submetatarsal s/p amputations 3. HTN/HCVD P:1. Continue Eliquis 5 bid, resume Cardizem CD 120 qd 2. IV Vanco course per ID 3. Thank you for consultative opportunity
--- NOTE | 2017-07-18 13:06 | CONSULT ---
Consult - text type - Consultation Consultation Note: Podiatry Consultation: 51 year old IDDM M well known to me from prior admissions with L foot osteo changes. S/p multiple amputations B/L feet continues to ambulate excessively. Does present with surgical offloading shoe. Denies F/V/N/C/SOB/CP. Afebrile, VSS. PMHx: IDDM, HTN, AFib Meds: noted ALL: NKMA WILLIAM: L foot: pedal pulses palpable, TG wnl, CFT brisk to remaining toes. There are healed plantar forefoot ulcers with superficial eschar, hyperkeratotic borders, no probing to bone, no purulence, no fluctuance, no ascending cellulitis, no signs of active infection. WBC: 5.4 Wound Cx: mixed species L foot XR: progressive erosive changes 2nd/3rd MTPJs Imp: 51 year old DM M with chronic osteomyelitis L foot 1. No surgical intervention at this time. Discussed with patient that if he continues to weightbear excessively he is at risk of TMA, especially given multiple amps on the foot. 2. Partial WB L heel with surgical offloading shoe. 3. Glycemic control. 4. Recommend bactroban + DSD L foot QOD 5. Thank you for the courtesy of this consultation. Jimmie Alvarado DPM
--- NOTE | 2017-07-18 13:24 | PN ---
Progress Note, Physician - Current Medication List Current Medications: Active Medications Apixaban (Eliquis -) 5 mg PO BID [facility] Last Admin: 07/18/17 09:52 Dose: 5 mg Diltiazem HCl (Cardizem Cd -) 120 mg PO DAILY [facility] Last Admin: 07/18/17 09:52 Dose: 120 mg Glipizide (Glucotrol -) 5 mg PO DAILY@0700 [facility] Last Admin: 07/18/17 06:15 Dose: 5 mg Vancomycin HCl 500 mg/ (Dextrose) 100 mls @ 100 mls/hr IVPB Q24H [facility] Last Admin: 07/17/17 21:27 Dose: 100 mls/hr Vancomycin HCl 2,000 mg/ (Dextrose) 500 mls @ 200 mls/hr IVPB Q24H [facility] Last Admin: 07/18/17 09:01 Dose: 200 mls/hr Metformin HCl (Glucophage -) 1,000 mg PO BIDAC [facility] Last Admin: 07/18/17 06:14 Dose: 1,000 mg - Objective Vital Signs: Vital Signs Temperature 97.3 F L 07/18/17 09:31 Pulse Rate 100 H 07/18/17 09:31 Respiratory Rate 20 07/18/17 09:31 Blood Pressure 107/75 07/18/17 09:31 O2 Sat by Pulse Oximetry (%) 98 07/17/17 21:00 Constitutional: Yes: No Distress HENT: Yes: Atraumatic Neck: Yes: Supple Cardiovascular: Yes: Regular Rate and Rhythm Respiratory: Yes: CTA Bilaterally Gastrointestinal: Yes: Normal Bowel Sounds Extremities: Yes: WNL Neurological: Yes: Alert, Oriented Labs: CBC, BMP 07/12/17 20:15 07/18/17 07:00 Problem List - Problems (1) Diabetic foot infection Assessment/Plan: on iv abx per id Code(s): E11.628 - TYPE 2 DIABETES MELLITUS WITH OTHER SKIN COMPLICATIONS; L08.9 - LOCAL INFECTION OF THE SKIN AND SUBCUTANEOUS TISSUE, UNSP (2) Diabetes Assessment/Plan: on po meds bgm Code(s): E11.9 - TYPE 2 DIABETES MELLITUS WITHOUT COMPLICATIONS (3) HTN (hypertension) Assessment/Plan: on meds stable Code(s): I10 - ESSENTIAL (PRIMARY) HYPERTENSION Qualifiers: Hypertension type: essential hypertension Qualified Code(s): I10 - Essential (primary) hypertension
--- NOTE | 2017-07-18 16:26 | PN ---
Progress Note, Physician History of Present Illness: Pt without new complaints. Feels well. - Current Medication List Current Medications: Active Medications Apixaban (Eliquis -) 5 mg PO BID [facility] Last Admin: 07/18/17 09:52 Dose: 5 mg Diltiazem HCl (Cardizem Cd -) 120 mg PO DAILY [facility] Last Admin: 07/18/17 09:52 Dose: 120 mg Glipizide (Glucotrol -) 5 mg PO DAILY@0700 [facility] Last Admin: 07/18/17 06:15 Dose: 5 mg Vancomycin HCl 500 mg/ (Dextrose) 100 mls @ 100 mls/hr IVPB Q24H [facility] Last Admin: 07/17/17 21:27 Dose: 100 mls/hr Vancomycin HCl 2,000 mg/ (Dextrose) 500 mls @ 200 mls/hr IVPB Q24H [facility] Last Admin: 07/18/17 09:01 Dose: 200 mls/hr Metformin HCl (Glucophage -) 1,000 mg PO BIDAC [facility] Last Admin: 07/18/17 06:14 Dose: 1,000 mg - Objective Vital Signs: Vital Signs Temperature 98.3 F 07/18/17 14:44 Pulse Rate 92 H 07/18/17 14:44 Respiratory Rate 20 07/18/17 14:44 Blood Pressure 112/72 07/18/17 14:44 O2 Sat by Pulse Oximetry (%) 99 07/18/17 10:30 Constitutional: Yes: No Distress Neck: Yes: Supple Cardiovascular: Yes: Pulse Irregular Respiratory: Yes: Regular Gastrointestinal: Yes: Normal Bowel Sounds, Soft Wound/Incision: Yes: Dressing Dry and Intact Labs: CBC, BMP 07/12/17 20:15 07/18/17 07:00 Problem List - Problems (1) Diabetic foot infection Code(s): E11.628 - TYPE 2 DIABETES MELLITUS WITH OTHER SKIN COMPLICATIONS; L08.9 - LOCAL INFECTION OF THE SKIN AND SUBCUTANEOUS TISSUE, UNSP (2) Afib Code(s): I48.91 - UNSPECIFIED ATRIAL FIBRILLATION Qualifiers: Atrial fibrillation type: persistent Qualified Code(s): I48.1 - Persistent atrial fibrillation (3) Cellulitis Code(s): L03.90 - CELLULITIS, UNSPECIFIED Qualifiers: Site of cellulitis: extremity Site of cellulitis of extremity: toe Laterality: left Qualified Code(s): L03.032 - Cellulitis of left toe (4) Diabetes Code(s): E11.9 - TYPE 2 DIABETES MELLITUS WITHOUT COMPLICATIONS (5) Osteomyelitis of toe Code(s): M86.9 - OSTEOMYELITIS, UNSPECIFIED Assessment/Plan 51 y.o. male with hx of DM, Afib, OM s/p Lt foot toe amputations Lt foot Diabetic ulcer/ Lt submetarsal chronic OM -- on Vancomycin IV -- monitor renal function -- tight glycemic control pt stable at this time
[2017-07-18] MEDS: VANCOMYCIN 500 MG in DEXTROSE 5%-WATER - 100 ML IVPB SCH (20:38)
[2017-07-19] MEDS: glipiZIDE 5 MG TABLET (FP) PO SCH (06:20)
[2017-07-19] MEDS: metFORMIN HCL 500 MG TABLET (FP) PO SCH ×2 (06:20→17:51)
[2017-07-19] MEDS: VANCOMYCIN 2,000 MG in DEXTROSE 5%-WATER - 500 ML IVPB SCH (08:51)
[2017-07-19] MEDS: APIXABAN 5 MG TABLET PO SCH ×2 (10:21→21:18)
--- NOTE | 2017-07-19 11:04 | PN ---
Progress Note, Physician History of Present Illness: Remains in rate-controlled afib, denies chest pain, dyspnea, palpitations, near or true syncope. - Current Medication List Current Medications: Active Medications Apixaban (Eliquis -) 5 mg PO BID [facility] Last Admin: 07/19/17 10:21 Dose: 5 mg Diltiazem HCl (Cardizem Cd -) 120 mg PO DAILY [facility] Last Admin: 07/19/17 10:21 Dose: 120 mg Glipizide (Glucotrol -) 5 mg PO DAILY@0700 [facility] Last Admin: 07/19/17 06:20 Dose: 5 mg Vancomycin HCl 500 mg/ (Dextrose) 100 mls @ 100 mls/hr IVPB Q24H [facility] Last Admin: 07/18/17 20:38 Dose: 100 mls/hr Vancomycin HCl 2,000 mg/ (Dextrose) 500 mls @ 200 mls/hr IVPB Q24H [facility] Last Admin: 07/19/17 08:51 Dose: 200 mls/hr Metformin HCl (Glucophage -) 1,000 mg PO BIDAC [facility] Last Admin: 07/19/17 06:20 Dose: 1,000 mg - Objective Vital Signs: Vital Signs Temperature 98.0 F 07/19/17 06:00 Pulse Rate 85 07/19/17 06:00 Respiratory Rate 20 07/19/17 06:00 Blood Pressure 102/70 07/19/17 06:00 O2 Sat by Pulse Oximetry (%) 98 07/18/17 21:00 Constitutional: Yes: No Distress, Calm Neck: Yes: Supple Cardiovascular: Yes: Pulse Irregular Respiratory: Yes: Regular, CTA Bilaterally Gastrointestinal: Yes: Normal Bowel Sounds, Soft Extremities: Yes: Amputation (Left toe amputations) Edema: No Labs: CBC, BMP 07/12/17 20:15 07/18/17 07:00 Problem List - Problems (1) Diabetic foot infection Code(s): E11.628 - TYPE 2 DIABETES MELLITUS WITH OTHER SKIN COMPLICATIONS; L08.9 - LOCAL INFECTION OF THE SKIN AND SUBCUTANEOUS TISSUE, UNSP (2) Afib Code(s): I48.91 - UNSPECIFIED ATRIAL FIBRILLATION Qualifiers: Atrial fibrillation type: persistent Qualified Code(s): I48.1 - Persistent atrial fibrillation (3) Cellulitis Code(s): L03.90 - CELLULITIS, UNSPECIFIED Qualifiers: Site of cellulitis: extremity Site of cellulitis of extremity: toe Laterality: left Qualified Code(s): L03.032 - Cellulitis of left toe (4) HTN (hypertension) Code(s): I10 - ESSENTIAL (PRIMARY) HYPERTENSION Qualifiers: Hypertension type: essential hypertension Qualified Code(s): I10 - Essential (primary) hypertension (5) Osteomyelitis of toe Code(s): M86.9 - OSTEOMYELITIS, UNSPECIFIED (6) Wound infection Code(s): T14.8XXA - OTHER INJURY OF UNSPECIFIED BODY REGION, INITIAL ENCOUNTER; L08.9 - LOCAL INFECTION OF THE SKIN AND SUBCUTANEOUS TISSUE, UNSP Assessment/Plan 1. Persistent atrial fibrillation with RVR [id number] on NOAC 2. Diabetic foot infection/cellulitis, osteomyelitis of left submetatarsal s/p toe amputations 3. HTN/HCVD P:1. Continue Eliquis 5 bid and Cardizem CD 120 qd 2. IV Vanco course per ID
--- NOTE | 2017-07-19 15:13 | PN ---
Progress Note, Physician - Current Medication List Current Medications: Active Medications Apixaban (Eliquis -) 5 mg PO BID [facility] Last Admin: 07/19/17 10:21 Dose: 5 mg Diltiazem HCl (Cardizem Cd -) 120 mg PO DAILY [facility] Last Admin: 07/19/17 10:21 Dose: 120 mg Glipizide (Glucotrol -) 5 mg PO DAILY@0700 [facility] Last Admin: 07/19/17 06:20 Dose: 5 mg Vancomycin HCl 500 mg/ (Dextrose) 100 mls @ 100 mls/hr IVPB Q24H [facility] Last Admin: 07/18/17 20:38 Dose: 100 mls/hr Vancomycin HCl 2,000 mg/ (Dextrose) 500 mls @ 200 mls/hr IVPB Q24H [facility] Last Admin: 07/19/17 08:51 Dose: 200 mls/hr Metformin HCl (Glucophage -) 1,000 mg PO BIDAC [facility] Last Admin: 07/19/17 06:20 Dose: 1,000 mg - Objective Vital Signs: Vital Signs Temperature 97.9 F 07/19/17 10:00 Pulse Rate 67 07/19/17 10:00 Respiratory Rate 20 07/19/17 10:00 Blood Pressure 137/77 07/19/17 10:00 O2 Sat by Pulse Oximetry (%) 98 07/19/17 09:00 Constitutional: Yes: No Distress HENT: Yes: Atraumatic Neck: Yes: Supple Cardiovascular: Yes: Regular Rate and Rhythm Respiratory: Yes: CTA Bilaterally Extremities: Yes: Other (left toe in dressing) Neurological: Yes: Alert, Oriented Labs: CBC, BMP 07/12/17 20:15 07/18/17 07:00 Problem List - Problems (1) Diabetic foot infection Assessment/Plan: on iv abx per id today is last day Code(s): E11.628 - TYPE 2 DIABETES MELLITUS WITH OTHER SKIN COMPLICATIONS; L08.9 - LOCAL INFECTION OF THE SKIN AND SUBCUTANEOUS TISSUE, UNSP (2) Diabetes Assessment/Plan: on po meds bgm Code(s): E11.9 - TYPE 2 DIABETES MELLITUS WITHOUT COMPLICATIONS (3) HTN (hypertension) Assessment/Plan: on meds stable Code(s): I10 - ESSENTIAL (PRIMARY) HYPERTENSION Qualifiers: Hypertension type: essential hypertension Qualified Code(s): I10 - Essential (primary) hypertension
--- NOTE | 2017-07-19 15:14 | DS ---
Physical Examination Vital Signs: Vital Signs Temperature 97.9 F 07/19/17 10:00 Pulse Rate 67 07/19/17 10:00 Respiratory Rate 20 07/19/17 10:00 Blood Pressure 137/77 07/19/17 10:00 O2 Sat by Pulse Oximetry (%) 98 07/19/17 09:00 Constitutional: Yes: No Distress HENT: Yes: Atraumatic Neck: Yes: Supple Cardiovascular: Yes: Regular Rate and Rhythm Respiratory: Yes: CTA Bilaterally Gastrointestinal: Yes: Normal Bowel Sounds Extremities: Yes: Other (left foot in dressing) Edema: No Neurological: Yes: Alert, Oriented Labs: CBC, BMP 07/12/17 20:15 07/18/17 07:00 Discharge Summary Reason For Visit: OPEN WOUND OF FOOT DIABETES MELLITUS Current Active Problems Diabetic foot infection (Acute) Wound, open, foot (Acute) Condition: Good - Instructions Referrals: Kirill Mijares MD [Primary Care Provider] - Disposition: HOME - Home Medications Comprehensive Discharge Medication List: Ambulatory Orders Apixaban [Eliquis] 5 mg PO BID #60 tablet 04/16/17 Metformin HCl [Glucophage] 1,000 mg PO BID #60 tablet 04/16/17 Acetaminophen [Tylenol] 650 mg PO Q4H #30 tablet 06/10/17 Glipizide 5 mg PO DAILY 06/14/17 Diltiazem HCl [Diltiazem 24Hr Cd] 120 mg PO DAILY 06/30/17 nd home
--- NOTE | 2017-07-19 16:04 | PN ---
Progress Note, Physician - Current Medication List Current Medications: Active Medications Apixaban (Eliquis -) 5 mg PO BID [facility] Last Admin: 07/19/17 10:21 Dose: 5 mg Diltiazem HCl (Cardizem Cd -) 120 mg PO DAILY [facility] Last Admin: 07/19/17 10:21 Dose: 120 mg Glipizide (Glucotrol -) 5 mg PO DAILY@0700 [facility] Last Admin: 07/19/17 06:20 Dose: 5 mg Vancomycin HCl 500 mg/ (Dextrose) 100 mls @ 100 mls/hr IVPB Q24H [facility] Last Admin: 07/18/17 20:38 Dose: 100 mls/hr Vancomycin HCl 2,000 mg/ (Dextrose) 500 mls @ 200 mls/hr IVPB Q24H [facility] Last Admin: 07/19/17 08:51 Dose: 200 mls/hr Metformin HCl (Glucophage -) 1,000 mg PO BIDAC [facility] Last Admin: 07/19/17 06:20 Dose: 1,000 mg - Objective Vital Signs: Vital Signs Temperature 98.1 F 07/19/17 14:38 Pulse Rate 92 H 07/19/17 14:38 Respiratory Rate 18 07/19/17 14:38 Blood Pressure 118/54 07/19/17 14:38 O2 Sat by Pulse Oximetry (%) 98 07/19/17 09:00 Labs: CBC, BMP 07/12/17 20:15 07/18/17 07:00
[2017-07-19] MEDS: VANCOMYCIN 500 MG in DEXTROSE 5%-WATER - 100 ML IVPB SCH (20:00)
[2017-07-19 21:13] VITALS: TEMP 97.8
[2017-07-19 22:31] VITALS: BP 127/83; PULSE 98
== END 2017-07-19 23:00 | disposition home or self-care (01) | DRG 420 ==
LOC: JER 13:47 → JERBED 21:33 → J5S 23:42
PROVIDERS: ADMIT Internal Medicine; ATTEND Internal Medicine
DX: E11.621 Type 2 diabetes mellitus with foot ulcer (principal); L08.9 Local infection of the skin and subcutaneous tissue, unspecified; L03.032 Cellulitis of left toe; I11.9 Hypertensive heart disease without heart failure; I48.1 Persistent atrial fibrillation; M86.60 Other chronic osteomyelitis, unspecified site
CPT/HCPCS: 36415; 73630-TC-LT; 80048; 80053; 82962; 85025; 87040; 93005; 93010; 99283-25; G0480

== ENCOUNTER 2017-09-30 09:12 | Inpatient (IN) | payer OTHER ==
--- NOTE | 2017-09-30 09:24 | PDOC ---
History of Present Illness - General Chief Complaint: Wound Stated Complaint: BLOOD SUGAR PROBLEM, WOUND Time Seen by Provider: 09/30/17 09:23 - History of Present Illness Initial Comments: 09/30/17 09:39 Mr. Bruno Haley is a 52 yo male w/ pmh of HTN, DM, and afib who presents for evaluation of left foot pain. He reports he was evaluated 8 months ago and has had chronic draining ulcer to his left foot for which he follows up with wound care clinic, however in the last day he has experienced swelling of his left foot with diffuse pain throughout when walking on it or at rest. He has no other complaints at this time. The patient denies chest pain, shortness of breath, headache and dizziness. Denies fever, chills, nausea, vomit, diarrhea and constipation. Denies dysuria, frequency, urgency and hematuria. Allergies: NKDA Past History - Past Medical History Allergies/Adverse Reactions: Allergies Allergy/AdvReac Type Severity Reaction Status Date / Time No Known Allergies Allergy Verified 09/14/17 17:32 Home Medications: Ambulatory Orders Glipizide 5 mg PO DAILY #30 tablet 07/19/17 Metformin HCl [Glucophage] 1,000 mg PO BID #60 tablet 07/19/17 Warfarin Sodium [Coumadin] 5 mg PO DAILY 09/30/17 Anemia: No Asthma: No Cancer: No Cardiac Disorders: (Afib) CVA: No COPD: No DVT: No Dementia: No Diabetes: Yes Dialysis: No GI Disorders: No Disorders: No HTN: Yes Hypercholesterolemia: No Kidney Stones: No Liver Disease: No Psychiatric Problems: No Seizures: No Thyroid Disease: No Lung CA: No - Surgical History Abdominal Surgery: No Appendectomy: No Cardiac Surgery: No Cholecystectomy: No Lung Surgery: No Neurologic Surgery: No Orthopedic Surgery: Yes - Suicide/Smoking/Psychosocial Hx Smoking History: Never smoked Have you smoked in the past 12 months: No Hx Alcohol Use: No Drug/Substance Use Hx: No Substance Use Type: None Hx Substance Use Treatment: No Review of Systems - Review of Systems Comments:: 09/30/17 10:28 GENERAL/CONSTITUTIONAL: No fever or chills. No weakness. HEAD, EYES, EARS, NOSE AND THROAT: No change in vision. No ear pain or discharge. No sore throat. CARDIOVASCULAR: No chest pain or shortness of breath RESPIRATORY: No cough, wheezing, or hemoptysis. GASTROINTESTINAL: No nausea, vomiting, diarrhea or constipation. GENITOURINARY: No dysuria, frequency, or change in urination. MUSCULOSKELETAL: +Foot pain as described. No neck or back pain. SKIN: No rash NEUROLOGIC: No headache, vertigo, loss of consciousness, or change in strength/ sensation. ENDOCRINE: No increased thirst. No abnormal weight change HEMATOLOGIC/LYMPHATIC: No anemia, easy bleeding, or history of blood clots. ALLERGIC/IMMUNOLOGIC: No hives or skin allergy. *Physical Exam - Vital Signs Last Vital Signs Temp Pulse Resp BP Pulse Ox 98 F 109 H 16 118/64 99 09/30/17 09:12 09/30/17 09:12 09/30/17 09:12 09/30/17 09:12 09/30/17 09:12 - Physical Exam Comments: 09/30/17 10:29 GENERAL: Awake, alert, and fully oriented, in no acute distress HEAD: No signs of trauma, normocephalic, atraumatic EYES: PERRLA, EOMI, sclera anicteric, conjunctiva clear ENT: Auricles normal inspection, hearing grossly normal, nares patent, oropharynx clear without exudates. Moist mucosa NECK: Normal ROM, supple, no lymphadenopathy, JVD, or masses LUNGS: No distress, speaks full sentences, clear to auscultation bilaterally HEART: Regular rate and rhythm, normal S1 and S2, no murmurs, rubs or gallops, peripheral pulses normal and equal bilaterally. ABDOMEN: Soft, nontender, normoactive bowel sounds. No guarding, no rebound. No masses EXTREMITIES: +Left foot exam significant for 2 draining ulcers on plantar surface. Foot warm to touch. NEUROLOGICAL: Cranial nerves II through XII grossly intact. Normal speech, normal gait, no focal sensorimotor deficits SKIN: Warm, Dry, normal turgor, no rashes or lesions noted. ED Treatment Course - LABORATORY CBC & Chemistry Diagram: 09/30/17 10:00 09/30/17 10:00 Medical Decision Making - Medical Decision Making 09/30/17 11:32 Mr. Carr is a 52 yo male w/ pmh as described who presents for evaluation of draining foot ulcer. US and XR ordered for r/o DVT and osteo; both negative. Will begin treatment with vanc/zosyn for presumed diabetic foot ulcer infection and admit for further evaluation. *DC/Admit/Observation/Transfer Diagnosis at time of Disposition: Diabetic foot infection - Discharge Dispostion Decision to Admit order: Yes - Referrals - Patient Instructions - Post Discharge Activity
[2017-09-30] MEDS ORDERED: SODIUM CHLORIDE 1,000 ML IV STA (09:37)
--- NOTE | 2017-09-30 09:45 | PDOC ---
Attending Attestation - HPI HPI: 09/30/17 10:09 The patient is a 52-year-old male, with a significant past medical history of HTN, DM, a-fib, s/p left great toe and left 4th toe amputations, who presents to the ED with chronic left foot ulcers. The patient has been following up with Dr. Brennan Scott at [facility] for the past 8 months when he developed his symptoms. He presents today because his left foot has become progressively more painful and swollen since Wednesday 09/27. He describes the pain as constant, 8 /10 in severity, radiating to his calf, and exacerbated when he ambulates on his left foot. He denies any tobacco use, alcohol use, or drug use. The patient denies any fever, chills, nausea, vomiting, diarrhea, or abdominal pain. Denies any chest pain or shortness of breath. Allergies: NKA Surgical History: Left great toe and left 4th toe amputations. Social History: No tobacco use, alcohol use, or drug use. Vascular: Dr. Brennan Scott - Physicial Exam PE: 09/30/17 10:09 Vitals: Triage Vital signs reviewed General Appearance: no acute distress, well nourished well developed, Head: Atraumatic, normocephalic Eyes: Pupils equal reactive round, extraocular movement intact Neck: Supple;No Nuchal rigidity Chest Wall: Nontender Cardiac: Regular rate and rhythm, no murmurs, no rubs, no gallops, Lungs: Clear to auscultation bilateral, good air movement bilaterally, Abdomen: Soft, nondistended, normal bowel sounds, nontender to palpation Rectal: Exam deferred Extremities: (+)Left Foot: left great toe and left 4th toe amputations noted, 0.5 cm x 0.5 cm ulcer located at the base of the left great toe, 2 cm x 1 cm ulcer located at the base of the left 4th toe, left foot is warm to touch, swollen, and erythematous. Full range of motion to all extremities, no cyanosis , clubbing. Skin: Warm and dry, no petechiae. Neuro: AOX3; Cranial Nerves 2-12 grossly intact, Sensation intact to all extremities. Psych: normal mood, normal affect - Medical Decision Making 09/30/17 10:10 Plan: -Chest X-Ray -Left Foot X-Ray -Labs -Cultures -Antibiotics -Admit 09/30/17 11:29 Left Foot/Ankle X-Ray was reviewed by Dr. Hernadez and over-read by Radiology. Impression: Improved mineralization, with intact cortex of the distal aspect of the second, third metatarsal at this site of the osteomyelitis seen on x-rays of the foot July 12, 2017. Clinical correlation, follow-up imaging if clinically indicated may be considered. 09/30/17 11:31 Chest X-Ray was reviewed by Dr. Hernadez and over-read by Radiology. Impression: No evidence of active pulmonary disease. <Bernadette Zhao - Last Filed: 09/30/17 11:31> - Resident Resident Name: Jarad Villanueva - ED Attending Attestation I have performed the following: I have examined & evaluated the patient, The case was reviewed & discussed with the resident, I agree w/resident's findings & plan, Exceptions are as noted - Medical Decision Making Foot warm to touch with pain swelling and redness likely infected given history of diabetes and foot ulcer we'll cover with thank and Zosyn and admitted to medicine for further management <Juventino Hernadez - Last Filed: 09/30/17 14:27> Heart Score/ECG Review - ECG Impressions Comment:: 09/30/17 10:34 A. fib with rapid ventricular response 109. <Juventino Hernadez - Last Filed: 09/30/17 14:27> Attestations - Attestations 09/30/17 10:15 Documentation prepared by Bernadette Zhao, acting as medical records administrator for Juventino Hernadez MD. <Bernadette Zhao - Last Filed: 09/30/17 11:31>
[2017-09-30 10:17] LABS: BASO % 0.5 % (0-2.0); EOS % 1.4 % (0-4.5); HEMATOCRIT 38.9 % (35.4-49); HEMOGLOBIN 13.2 GM/dL (11.7-16.9); LYMPH % 15.8 % (8-40); MCH 30.6 pg (25.7-33.7); MCHC 34.1 g/dl (32.0-35.9); MEAN CELL VOLUME 89.7 fl (80-96); MEAN PLT VOLUME 10.1 fl (7.5-11.1); MONO % 6.9 % (3.8-10.2); NEUT % 75.4 % (42.8-82.8); PLATELET COUNT 206 K/MM3 (134-434); RBC 4.33 M/mm3 (4.00-5.60); WHITE BLOOD COUNT 7.5 K/mm3 (4.0-10.0)
[2017-09-30 10:30] LABS: INR 3.7 (0.82-1.09); PROTHROMBIN TIME (PATIENT) 41.8 SEC (9.7-13.0)
[2017-09-30 10:56] LABS: ALBUMIN 3.9 g/dl (3.4-5.0); ANION GAP 7 (8-16); BILIRUBIN,TOTAL 0.7 mg/dL (0.2-1.0); BLOOD UREA NITROGEN 30 mg/dL (7-18); CALCIUM 8.8 mg/dL (8.5-10.1); CHLORIDE 106 mmol/L (98-107); CO2 27 mmol/L (21-32); CREATININE 1.1 mg/dL (0.7-1.3); GLUCOSE,RANDOM 127 mg/dL (74-106); POTASSIUM 4.4 mmol/L (3.5-5.1); SGOT/AST 21 U/L (15-37); SGPT/ALT 26 U/L (12-78); SODIUM 140 mmol/L (136-145); TOT PROT 7.9 g/dl (6.4-8.2)
[2017-09-30 10:59] LABS: ALK PHOS 123 U/L (45-117)
[2017-09-30] MEDS ORDERED: PIPERACILLIN/TAZOB 3.375 GM 3.375 GM in DEXTROSE 5%-WATER - 50 ML IVPB ONE (11:30)
[2017-09-30] MEDS ORDERED: VANCOMYCIN 1,000 MG in DEXTROSE 5%-WATER - 250 ML IVPB ONE (11:30)
[2017-09-30] MEDS ORDERED: VANCOMYCIN 1 GRAM (PRE-DOCKED) 1,000 MG/250 ML BAG IVPB ONE (11:36)
[2017-09-30] MEDS ORDERED: PIPERACILLIN/TAZOB 3.375 GM 3.375 GM/50 ML BAG IVPB ONE (11:36)
--- NOTE | 2017-09-30 12:24 | HP ---
Admitting History and Physical - Admission Chief Complaint: left foot pain History of Present Illness: This is a 52 year old male with pmhx DM II, HTN, A fib on coumadin, OM s/p Left partial great toe and 4th toe amputation who presented today with worsening chronic left foot/plantar pain and wound with left leg swelling since Wednesday. He was to see Dr. Scott in wound care today but came to the ED, he is unable to ambulate without pain. Pt denies fever, chills, abdominal pain, n/v, cp, he does have SOB at times. 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 Home Medications - Allergies Allergies/Adverse Reactions: Allergies Allergy/AdvReac Type Severity Reaction Status Date / Time No Known Allergies Allergy Verified 09/14/17 17:32 - Home Medications Home Medications: Ambulatory Orders Glipizide 5 mg PO DAILY #30 tablet 07/19/17 Metformin HCl [Glucophage] 1,000 mg PO BID #60 tablet 07/19/17 Warfarin Sodium [Coumadin] 5 mg PO DAILY 09/30/17 Review of Systems - Review of Systems Constitutional: reports: No Symptoms Eyes: reports: No Symptoms HENT: reports: No Symptoms Neck: reports: No Symptoms Cardiovascular: reports: No Symptoms Respiratory: reports: SOB Gastrointestinal: reports: No Symptoms Genitourinary: reports: No Symptoms Musculoskeletal: reports: Extremity Pain (left foot) Integumentary: reports: Wound (left planter x 2 wounds) Neurological: reports: No Symptoms Endocrine: reports: No Symptoms Hematology/Lymphatic: reports: No Symptoms Psychiatric: reports: No Symptoms Physical Examination Vital Signs: Vital Signs Temperature 97.7 F 09/30/17 11:56 Pulse Rate 86 09/30/17 11:56 Respiratory Rate 17 09/30/17 11:56 Blood Pressure 109/65 09/30/17 11:56 O2 Sat by Pulse Oximetry (%) 100 09/30/17 11:56 Constitutional: Yes: No Distress Eyes: Yes: Conjunctiva Clear Neck: Yes: Trachea Midline Cardiovascular: Yes: Pulse Irregular, S1, S2 Respiratory: Yes: Regular, CTA Bilaterally Gastrointestinal: Yes: Normal Bowel Sounds, Soft Extremities: Yes: Amputation (r 3rd toe, Left great toe, 4th toe) Edema: Yes Edema: LLE: Trace Peripheral Pulses WNL: Yes Integumentary: Yes: Other (left planter wound x2 1. under 3rd toe open 2/4cm tender, mild drainage, no odor 2. below great toe tender to palpation, closed, non draining) Neurological: Yes: Alert, Oriented, Cran Nerves II-XII Intact Psychiatric: Yes: Alert, Oriented Labs: CBC, BMP 09/30/17 10:00 09/30/17 10:00 Imaging - Results Chest X-ray: Report Reviewed X-ray: Report Reviewed Ultrasound: Report Reviewed Problem List - Problems (1) Diabetic foot infection Code(s): E11.628 - TYPE 2 DIABETES MELLITUS WITH OTHER SKIN COMPLICATIONS; L08.9 - LOCAL INFECTION OF THE SKIN AND SUBCUTANEOUS TISSUE, UNSP (2) Afib Code(s): I48.91 - UNSPECIFIED ATRIAL FIBRILLATION Qualifiers: Atrial fibrillation type: persistent Qualified Code(s): I48.1 - Persistent atrial fibrillation (3) Cellulitis Code(s): L03.90 - CELLULITIS, UNSPECIFIED Qualifiers: Site of cellulitis: extremity Site of cellulitis of extremity: toe Laterality: left Qualified Code(s): L03.032 - Cellulitis of left toe (4) HTN (hypertension) Code(s): I10 - ESSENTIAL (PRIMARY) HYPERTENSION Qualifiers: Hypertension type: essential hypertension Qualified Code(s): I10 - Essential (primary) hypertension (5) Wound infection Code(s): T14.8XXA - OTHER INJURY OF UNSPECIFIED BODY REGION, INITIAL ENCOUNTER; L08.9 - LOCAL INFECTION OF THE SKIN AND SUBCUTANEOUS TISSUE, UNSP (6) Wound, open, foot Code(s): S91.309A - UNSPECIFIED OPEN WOUND, UNSPECIFIED FOOT, INITIAL ENCOUNTER Qualifiers: Encounter type: initial encounter Laterality: left Qualified Code(s): S91.302A - Unspecified open wound, left foot, initial encounter Assessment/Plan Assessment: 52 year old male admitted with left foot infection Plan: 1. Left foot infection - Increased tenderness to palpation - Xray neg for gas - BC pending - Vanco, zosyn given in ED - ID, vascular, podiatry consulted - Local wound care - MRI pending discussion with team 2. Afib - Rate controlled - Cont coumadin 5mg, hold tonight supratherapeutic inr - Daily INR goal 2-3 3. DM II - Hold po antidiabetic - ISS, BGM ACHS 4. DVT - On AC Visit type - Emergency Visit Emergency Visit: Yes Care time: The patient presented to the Emergency Department on the above date and was hospitalized for further evaluation of their emergent condition. - New Patient This patient is new to me today: Yes Date on this admission: 09/30/17 - Critical Care Critical Care patient: No Hospitalist Screening - Colonoscopy Questionnaire Colonoscopy Questionnaire: Colonoscopy Questionnaire - Patient: 50 - 75 years old and never had a screening colonoscopy: Unknown History of colon or rectal polyps, or CA: Unknown History of IBD, Crohn's disease or UC: Unknown History of abdominal radiation therapy as a child: Unknown - Relative: 1 with colon or rectal CA, or polyps at age 60 or younger: Unknown Colon or rectal CA diagnosed at age 45 or younger: Unknown Multiple relatives with colon or rectal CA: Unknown - Outcome: Screening Result: Negative Screen
[2017-09-30] MEDS ORDERED: ACETAMINOPHEN 325 MG TABLET (FP) PO PRN (12:39)
--- NOTE | 2017-09-30 13:07 | EKG ---
Test Reason : Blood Pressure : / mmHG Vent. Rate : 108 BPM Atrial Rate : 120 BPM P-R Int : 000 ms QRS Dur : 084 ms QT Int : 310 ms P-R-T Axes : 000 014 041 degrees QTc Int : 415 ms ATRIAL FIBRILLATION WITH RAPID VENTRICULAR RESPONSE ABNORMAL ECG WHEN COMPARED WITH ECG OF 12-JUL-2017 22:44, NO SIGNIFICANT CHANGE WAS FOUND Confirmed by STEPHANIE FERREIRA MD ([id number]) on 09/30/2017 1:07:17 PM Referred By: Confirmed By:STEPHANEI FERREIRA MD
[2017-09-30] MEDS: INSULIN SLIDING SCALE (NOVOLOG) 1 VIAL SQ SCH ×2 (17:01→21:44)
--- NOTE | 2017-09-30 18:28 | CON.ID ---
Consult Consult Specialty:: infectous diseases Referred by:: Dena Reason for Consultation:: infexction of the foot - History of Present Illness Chief Complaint: pain and not able to bear weight History of Present Illness: 52 year old male with pmhx DM II, HTN, A fib on coumadin, OM s/p Left partial great toe and 4th toe amputation who presented today with worsening chronic left foot/plantar pain and wound with left leg swelling since Wednesday 09/27. He was to see Dr. Scott in wound care today but came to the ED, he is unable to ambulate without pain. Pt denies fever, chills, abdominal pain, n/v, cp, he does have SOB at times. DM, Afib, OM s/p Lt foot toe amputations i removed his wound and patients wound is having chidi pus coming out i have known this patient from last admission - History Source History Provided By: Patient Limitations to Obtaining History: No Limitations - Past Medical History Cardio/Vascular: Yes: AFIB, HTN Infectious Disease: Yes: Other (osteomyelitis) Endocrine: Yes: Diabetes Mellitus - Past Surgical History Past Surgical History: Yes: Amputation (Lt 1st toe partial amputation, Lt 4th toe amputation) - Alcohol/Substance Use Hx Alcohol Use: No - Smoking History Smoking history: Never smoked Have you smoked in the past 12 months: No - Social History ADL: Independent 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 Home Medications - Allergies Allergies/Adverse Reactions: Allergies Allergy/AdvReac Type Severity Reaction Status Date / Time No Known Allergies Allergy Verified 09/14/17 17:32 - Home Medications Home Medications: Ambulatory Orders Glipizide 5 mg PO DAILY #30 tablet 07/19/17 Metformin HCl [Glucophage] 1,000 mg PO BID #60 tablet 07/19/17 Warfarin Sodium [Coumadin] 5 mg PO DAILY 09/30/17 Review of Systems - Review of Systems Constitutional: reports: No Symptoms Eyes: reports: No Symptoms HENT: reports: No Symptoms Neck: reports: No Symptoms Cardiovascular: reports: No Symptoms Respiratory: reports: No Symptoms Gastrointestinal: reports: No Symptoms Genitourinary: reports: No Symptoms Musculoskeletal: reports: Other (left foot plantar pain and unable to bear weight) Integumentary: reports: Change in Color, Erythema Neurological: reports: No Symptoms Endocrine: reports: No Symptoms Hematology/Lymphatic: reports: No Symptoms Psychiatric: reports: No Symptoms Physical Exam Vital Signs: Vital Signs Temperature 98.3 F 09/30/17 15:19 Pulse Rate 94 H 09/30/17 17:00 Respiratory Rate 17 09/30/17 17:00 Blood Pressure 108/79 09/30/17 17:00 O2 Sat by Pulse Oximetry (%) 98 09/30/17 17:00 Constitutional: Yes: Well Nourished, No Distress, Calm Eyes: Yes: Conjunctiva Clear, EOM Intact HENT: Yes: Atraumatic, Normocephalic Neck: Yes: Supple, Trachea Midline Cardiovascular: Yes: Pulse Irregular Respiratory: Yes: Regular, CTA Bilaterally Gastrointestinal: Yes: Normal Bowel Sounds, Soft Musculoskeletal: Yes: WNL Extremities: Yes: Other Wound/Incision: Yes: Dressing Removed, Draining, Other Neurological: Yes: Alert, Oriented Psychiatric: Yes: Alert, Oriented Labs: CBC, BMP 09/30/17 10:00 09/30/17 10:00 Imaging - Results Chest X-ray: Report Reviewed, Image Reviewed X-ray: Report Reviewed, Image Reviewed Assessment/Plan Problem List - Problems (1) Diabetic foot infection Code(s): E11.628 - TYPE 2 DIABETES MELLITUS WITH OTHER SKIN COMPLICATIONS; L08.9 - LOCAL INFECTION OF THE SKIN AND SUBCUTANEOUS TISSUE, UNSP (2) Afib Code(s): I48.91 - UNSPECIFIED ATRIAL FIBRILLATION Qualifiers: Atrial fibrillation type: persistent Qualified Code(s): I48.1 - Persistent atrial fibrillation (3) Cellulitis Code(s): L03.90 - CELLULITIS, UNSPECIFIED Qualifiers: Site of cellulitis: extremity Site of cellulitis of extremity: toe Laterality: left Qualified Code(s): L03.032 - Cellulitis of left toe (4) HTN (hypertension) Code(s): I10 - ESSENTIAL (PRIMARY) HYPERTENSION Qualifiers: Hypertension type: essential hypertension Qualified Code(s): I10 - Essential (primary) hypertension (5) Wound infection Code(s): T14.8XXA - OTHER INJURY OF UNSPECIFIED BODY REGION, INITIAL ENCOUNTER; L08.9 - LOCAL INFECTION OF THE SKIN AND SUBCUTANEOUS TISSUE, UNSP (6) Wound, open, foot Code(s): S91.309A - UNSPECIFIED OPEN WOUND, UNSPECIFIED FOOT, INITIAL ENCOUNTER Qualifiers: Encounter type: initial encounter Laterality: left Qualified Code(s): S91.302A - Unspecified open wound, left foot, initial encounter Assessment/Plan i think the patient has deep seated infection and will need to be worked up and patient will need to be taken to the operating room i ahve started patient on abx and send the cx from the ffot also cx from the er has been send once we ahve all that we will make final decision also patient will need mri to know the depth of the infection
[2017-09-30] MEDS ORDERED: PT OWN MED DRAWER 7, Y5N ONE (18:41)
[2017-09-30] MEDS ORDERED: PIPERACILLIN/TAZOBACTAM 3.375 GM VIAL IVPB ONE (19:41)
[2017-09-30] MEDS ORDERED: DEXTROSE 5%-WATER - 50 ML IVPB ONE (19:41)
[2017-09-30] MEDS: PIPERACILLIN/TAZOB 3.375 GM 3.375 GM in DEXTROSE 5%-WATER - 50 ML IVPB SCH (19:59)
[2017-09-30] MEDS ORDERED: PNEUMOC 13-VAL CONJ-DIP CRM/PF 0.5 ML DISP.SYRIN IM ONE (20:00)
[2017-09-30] MEDS ORDERED: INSULIN (NOVOLOG) ASPART 100 UNITS/ML 10ML VIAL ONE (21:43)
[2017-10-01] MEDS ORDERED: PIPERACILLIN/TAZOBACTAM 3.375 GM VIAL IVPB ONE ×3 (01:28→17:01)
[2017-10-01] MEDS ORDERED: DEXTROSE 5%-WATER - 50 ML IVPB ONE ×3 (01:29→17:01)
[2017-10-01] MEDS: PIPERACILLIN/TAZOB 3.375 GM 3.375 GM in DEXTROSE 5%-WATER - 50 ML IVPB SCH ×3 (02:00→17:12)
[2017-10-01] MEDS: INSULIN SLIDING SCALE (NOVOLOG) 1 VIAL SQ SCH ×4 (06:17→22:00)
[2017-10-01] MEDS ORDERED: INSULIN (NOVOLOG) ASPART 100 UNITS/ML 10ML VIAL ONE ×2 (06:36→11:41)
[2017-10-01 06:59] LABS: PROTHROMBIN TIME (PATIENT) 47.1 SEC (9.7-13.0)
[2017-10-01 07:02] LABS: BASO % 0.4 % (0-2.0); EOS % 1.5 % (0-4.5); HEMATOCRIT 36.2 % (35.4-49); HEMOGLOBIN 12.6 GM/dL (11.7-16.9); LYMPH % 18.6 % (8-40); MCHC 34.7 g/dl (32.0-35.9); MEAN CELL VOLUME 89.2 fl (80-96); MEAN PLT VOLUME 9.6 fl (7.5-11.1); NEUT % 72.5 % (42.8-82.8); PLATELET COUNT 180 K/MM3 (134-434); RBC 4.06 M/mm3 (4.00-5.60); RDW 13.9 % (11.9-15.9); WHITE BLOOD COUNT 6.1 K/mm3 (4.0-10.0)
[2017-10-01 07:05] LABS: INR 4.17 (0.82-1.09)
--- NOTE | 2017-10-01 07:30 | CONSULT ---
Consult - text type - Consultation Consultation Note: Podiatry Consultation: Pleasant 52 year old DM M presents for increased pain to left foot. Has a history of multiple amputations of the left foot. Patient had uncontrolled DM and Afib, now in the medical clinic and has better control of his medical problems. 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 PMHx: AFib on AC, DM, HTN Meds: noted ALL: NKMA WILLIAM: L foot: pedal pulses palpable, TG wnl, CFT brisk to remaining toes. Sub-third and second metatarsal diabetic ulcers, mixed fibrogranular base, hyperkeratotic borders, no probing to bone, no purulent drainage, (+) serous drainage, no fluctuance, no periwound erythema, no ascending cellulitis, no signs of active infection. Moderate tenderness to palpation. WBC: 7.5 ESR: 31 Wound Cx: pending L foot XR: chronic osteo changes Imp: 52 year old DM M s/p multiple amputations L foot, chronic osteo L foot, sub -metatarsal diabetic ulcers 1. IV abx per infectious disease 2. Discussed with patient the necessity to minimize weightbearing activity in order to allow the wounds to heal. If he continues to weightbear excessively he is at increased risk of further amputation 3. Rx santyl to left foot ulcers daily 4. May need further imaging to evaluate acute/chronic osteomyelitis 5. Thank you for the courtesy of this consultation. Jimmie Alvarado DPM
[2017-10-01] MEDS ORDERED: WARFARIN NA 5 MG TABLET (UD) PO SCH ×2 (10:00→18:00)
[2017-10-01] MEDS: COLLAGENASE CLOSTRIDIUM HIST. 30 GRAMS TUBE TP SCH (10:53)
[2017-10-01] MEDS ORDERED: PT OWN MED DRAWER 7, Y5N ONE ×2 (11:39→11:40)
--- NOTE | 2017-10-01 11:54 | PN ---
Physical Exam: SUBJECTIVE: Patient seen and examined. Pt states he feels a little better, podiatry changed dressing this AM OBJECTIVE: Vital Signs Period Temp Pulse Resp BP Sys/Griffith Pulse Ox Last 24 Hr 97.7 F-98.9 F 84-112 17-20 108-140/62-80 98-100 PE Neuro: alert, awake cn 2-12intact Pulm: CTAB CV: s1 s2 irregular rhythm, regular rate Abd: s nt nd + bs Ext: L foot dressing CDI , no left lower ext swelling Laboratory Results - last 24 hr 09/30/17 09/30/17 09/30/17 11:35 11:50 16:59 WBC RBC Hgb Hct MCV MCH MCHC RDW Plt Count MPV Absolute Neuts (auto) Neutrophils % Lymphocytes % Monocytes % Eosinophils % Basophils % Nucleated RBC % ESR 31 H PT with INR INR POC Glucometer 160.60213 C-Reactive Protein 1.9 H 09/30/17 10/01/17 10/01/17 21:41 05:53 06:05 WBC 6.1 RBC 4.06 Hgb 12.6 Hct 36.2 MCV 89.2 MCH 31.0 MCHC 34.7 RDW 13.9 Plt Count 180 MPV 9.6 Absolute Neuts (auto) 4.4 Neutrophils % 72.5 Lymphocytes % 18.6 Monocytes % 7.0 Eosinophils % 1.5 Basophils % 0.4 Nucleated RBC % 0 ESR PT with INR INR POC Glucometer 249 176 C-Reactive Protein 10/01/17 06:05 WBC RBC Hgb Hct MCV MCH MCHC RDW Plt Count MPV Absolute Neuts (auto) Neutrophils % Lymphocytes % Monocytes % Eosinophils % Basophils % Nucleated RBC % ESR PT with INR 47.10 H INR 4.17 H* POC Glucometer C-Reactive Protein Active Medications Generic Name Dose Route Start Last Admin Trade Name Freq PRN Reason Stop Dose Admin Acetaminophen 650 mg 09/30/17 12:39 Tylenol - PO Q4H PRN PAIN LEVEL 1 - 3 Collagenase 1 applic 10/01/17 10:00 10/01/17 10:53 Santyl - TP 1 applic DAILY [facility] Administration Protocol Piperacillin Sod/Tazobactam 50 mls @ 100 mls/hr 09/30/17 18:45 10/01/17 09:37 Sod 3.375 gm/ Dextrose IVPB 100 mls/hr Q8H-IV [facility] Administration Protocol Insulin Aspart 1 vial 09/30/17 16:30 10/01/17 11:41 Novolog Vial Sliding Scale - SQ [address] [facility] Administration Protocol Warfarin Sodium 5 mg 10/01/17 18:00 Coumadin - PO DAILY@1800 [facility] Assessment: 52 year old male admitted with left foot infection Plan: 1. Left foot infection - No acute infection per podiatry, wound cx pendin - BC NGTD - Continue zosyn - Will discuss with ID for MRI r/o osteo 2. Afib - Rate controlled - Cont coumadin 5mg, hold tonight supratherapeutic inr - Daily INR goal 2-3 3. DM II - Hold po antidiabetic - ISS, BGM ACHS 4. DVT - On AC Problem List - Problems (1) Diabetic foot infection Code(s): E11.628 - TYPE 2 DIABETES MELLITUS WITH OTHER SKIN COMPLICATIONS; L08.9 - LOCAL INFECTION OF THE SKIN AND SUBCUTANEOUS TISSUE, UNSP (2) Afib Code(s): I48.91 - UNSPECIFIED ATRIAL FIBRILLATION Qualifiers: Atrial fibrillation type: persistent Qualified Code(s): I48.1 - Persistent atrial fibrillation (3) Cellulitis Code(s): L03.90 - CELLULITIS, UNSPECIFIED Qualifiers: Site of cellulitis: extremity Site of cellulitis of extremity: toe Laterality: left Qualified Code(s): L03.032 - Cellulitis of left toe (4) HTN (hypertension) Code(s): I10 - ESSENTIAL (PRIMARY) HYPERTENSION Qualifiers: Hypertension type: essential hypertension Qualified Code(s): I10 - Essential (primary) hypertension (5) Wound infection Code(s): T14.8XXA - OTHER INJURY OF UNSPECIFIED BODY REGION, INITIAL ENCOUNTER; L08.9 - LOCAL INFECTION OF THE SKIN AND SUBCUTANEOUS TISSUE, UNSP (6) Wound, open, foot Code(s): S91.309A - UNSPECIFIED OPEN WOUND, UNSPECIFIED FOOT, INITIAL ENCOUNTER Qualifiers: Encounter type: initial encounter Laterality: left Qualified Code(s): S91.302A - Unspecified open wound, left foot, initial encounter Visit type - Emergency Visit Emergency Visit: Yes ED Registration Date: 09/30/17 Care time: The patient presented to the Emergency Department on the above date and was hospitalized for further evaluation of their emergent condition. - New Patient This patient is new to me today: No - Critical Care Critical Care patient: No
--- NOTE | 2017-10-01 14:30 | PN ---
Progress Note, Physician History of Present Illness: stable no new issues patient feeling better - Current Medication List Current Medications: Active Medications Acetaminophen (Tylenol -) 650 mg PO Q4H PRN PRN Reason: PAIN LEVEL 1 - 3 Collagenase (Santyl -) 1 applic TP DAILY [facility]; Protocol Last Admin: 10/01/17 10:53 Dose: 1 applic Piperacillin Sod/Tazobactam (Sod 3.375 gm/ Dextrose) 50 mls @ 100 mls/hr IVPB Q8H-IV [facility]; Protocol Last Admin: 10/01/17 09:37 Dose: 100 mls/hr Insulin Aspart (Novolog Vial Sliding Scale -) 1 vial SQ ACHS [facility]; Protocol Last Admin: 10/01/17 11:41 Dose: 2 units Warfarin Sodium (Coumadin -) 5 mg PO DAILY@1800 [facility] - Objective Vital Signs: Vital Signs Temperature 97.8 F 10/01/17 08:51 Pulse Rate 112 H 10/01/17 08:51 Respiratory Rate 18 10/01/17 08:51 Blood Pressure 113/79 10/01/17 08:51 O2 Sat by Pulse Oximetry (%) 98 09/30/17 21:00 Constitutional: Yes: No Distress, Calm Cardiovascular: Yes: Pulse Irregular Respiratory: Yes: Regular, CTA Bilaterally Gastrointestinal: Yes: Normal Bowel Sounds, Soft Musculoskeletal: Yes: WNL Extremities: Yes: Other Wound/Incision: Yes: Dressing Dry and Intact Neurological: Yes: Alert, Oriented Labs: CBC, BMP 10/01/17 06:05 09/30/17 10:00 INR, PTT INR 4.17 (0.82-1.09) H* 10/01/17 06:05 Assessment/Plan Problem List - Problems (1) Diabetic foot infection Code(s): E11.628 - TYPE 2 DIABETES MELLITUS WITH OTHER SKIN COMPLICATIONS; L08.9 - LOCAL INFECTION OF THE SKIN AND SUBCUTANEOUS TISSUE, UNSP (2) Afib Code(s): I48.91 - UNSPECIFIED ATRIAL FIBRILLATION Qualifiers: Atrial fibrillation type: persistent Qualified Code(s): I48.1 - Persistent atrial fibrillation (3) Cellulitis Code(s): L03.90 - CELLULITIS, UNSPECIFIED Qualifiers: Site of cellulitis: extremity Site of cellulitis of extremity: toe Laterality: left Qualified Code(s): L03.032 - Cellulitis of left toe (4) HTN (hypertension) Code(s): I10 - ESSENTIAL (PRIMARY) HYPERTENSION Qualifiers: Hypertension type: essential hypertension Qualified Code(s): I10 - Essential (primary) hypertension (5) Wound infection Code(s): T14.8XXA - OTHER INJURY OF UNSPECIFIED BODY REGION, INITIAL ENCOUNTER; L08.9 - LOCAL INFECTION OF THE SKIN AND SUBCUTANEOUS TISSUE, UNSP (6) Wound, open, foot Code(s): S91.309A - UNSPECIFIED OPEN WOUND, UNSPECIFIED FOOT, INITIAL ENCOUNTER Qualifiers: Encounter type: initial encounter Laterality: left Qualified Code(s): S91.302A - Unspecified open wound, left foot, initial encounter Assessment/Plan await for all the cx reports await for imaging studies podiatry on case rest continue current mgmt and as per the team
--- NOTE | 2017-10-01 16:58 | PN ---
Progress Note (short form) - Note Progress Note: 52yo M vascular was consulted for evaluation of Left foot wound. Pt states that ulcers have been present for about 2 months, but they have not been healing. Pt was admitted for IV abx. Pt was also evaluated by podiatry. PE: Gen: A&O x3 Resp: breathing comfortably Ext: Left foot two 2 cm ulcerations on plantar aspect of foot over 3rd and 4th metatarsals, +2 pedal pulses Problem List - Problems (1) Foot ulcer Assessment/Plan: Plan - no vascular interventions at this time as pt has good pulses -continue recommendations per podiatry -please reconsult if any new issues. Code(s): L97.509 - NON-PRESSURE CHRONIC ULCER OTH PRT UNSP FOOT W UNSP SEVERITY Qualifiers: Laterality: left Non-pressure ulcer stage: with fat layer exposed Qualified Code(s): L97.522 - Non-pressure chronic ulcer of other part of left foot with fat layer exposed
[2017-10-02] MEDS ORDERED: DEXTROSE 5%-WATER - 50 ML IVPB ONE ×3 (01:31→17:40)
[2017-10-02] MEDS ORDERED: PIPERACILLIN/TAZOBACTAM 3.375 GM VIAL IVPB ONE ×3 (01:31→17:40)
[2017-10-02] MEDS: PIPERACILLIN/TAZOB 3.375 GM 3.375 GM in DEXTROSE 5%-WATER - 50 ML IVPB SCH ×3 (01:42→17:43)
[2017-10-02] MEDS: INSULIN SLIDING SCALE (NOVOLOG) 1 VIAL SQ SCH ×4 (06:36→21:47)
[2017-10-02 07:11] LABS: INR 2.53 (0.82-1.09); PROTHROMBIN TIME (PATIENT) 28.6 SEC (9.7-13.0)
--- NOTE | 2017-10-02 09:28 | PN ---
Physical Exam: SUBJECTIVE: Patient seen and examined at the bedside. Awake alert, in no acute distress. OBJECTIVE: inr 2.5, continue coumadin at lower dose Vital Signs Period Temp Pulse Resp BP Sys/Griffith Pulse Ox Last 24 Hr 97.0 F-98.6 F 78-97 18-20 92-123/59-80 99 GENERAL: The patient is awake, alert, and fully oriented, in no acute distress. HEAD: Normal with no signs of trauma. EYES: PERRL, extraocular movements intact, sclera anicteric, conjunctiva clear. No ptosis. ENT: Ears normal, nares patent, oropharynx clear without exudates, moist mucous membranes. NECK: Trachea midline, full range of motion, supple. LUNGS: Breath sounds equal, clear to auscultation bilaterally, no wheezes, no crackles, no accessory muscle use. HEART: Regular rate and rhythm, S1, S2 without murmur, rub or gallop. ABDOMEN: Soft, nontender, nondistended, normoactive bowel sounds, no guarding, no rebound, no hepatosplenomegaly, no masses. EXTREMITIES: left lower ext foot cellulitis. NEUROLOGICAL: Cranial nerves II through XII grossly intact. Normal speech, gait not observed. PSYCH: Normal mood, normal affect. Laboratory Results - last 24 hr 10/01/17 10/01/17 10/01/17 11:37 16:33 21:52 PT with INR INR POC Glucometer 171 170 185 10/02/17 10/02/17 05:37 06:10 PT with INR 28.60 H INR 2.53 H D POC Glucometer 156 Active Medications Generic Name Dose Route Start Last Admin Trade Name Rubens PRN Reason Stop Dose Admin Acetaminophen 650 mg 09/30/17 12:39 Tylenol - PO Q4H PRN PAIN LEVEL 1 - 3 Collagenase 1 applic 10/01/17 10:00 10/01/17 10:53 Santyl - TP 1 applic DAILY [facility] Administration Protocol Piperacillin Sod/Tazobactam 50 mls @ 100 mls/hr 09/30/17 18:45 10/02/17 01:42 Sod 3.375 gm/ Dextrose IVPB 100 mls/hr Q8H-IV [facility] Administration Protocol Insulin Aspart 1 vial 09/30/17 16:30 10/02/17 06:36 Novolog Vial Sliding Scale - SQ 2 units ACHS [facility] Administration Protocol Warfarin Sodium 5 mg 10/01/17 18:00 Coumadin - PO DAILY@1800 [facility] ASSESSMENT/PLAN: Patient is a 52 year old male with a past medical history of atrial fibrillation (on coumadin), diabetes s/p left toe amputation and hypertension. He presents to the ED on 09/30/2017 for a left foot infection. ID: Left foot cellulits/infection. On Zosyn. Wound cultures pending organism. On Santyl. MRI ordered to rule out osteo. Card: Atrial fibrillation. INR 2.5., restart Coumadin today at lower dose. Endocrine Diabetes On insulin. Monitor BGMs. diabetic diet. FEN tolerating PO monitor electrolytes diabetic diet prophy Coumadin Protonix Visit type - Emergency Visit Emergency Visit: Yes ED Registration Date: 09/30/17 Care time: The patient presented to the Emergency Department on the above date and was hospitalized for further evaluation of their emergent condition. - New Patient This patient is new to me today: No - Critical Care Critical Care patient: No - Discharge Referral Referred to [facility] No Physician Referral: Bryn Mosher MD ([facility])
[2017-10-02] MEDS ORDERED: INSULIN (NOVOLOG) ASPART 100 UNITS/ML 10ML VIAL ONE (11:53)
[2017-10-02] MEDS: COLLAGENASE CLOSTRIDIUM HIST. 30 GRAMS TUBE TP SCH (12:01)
[2017-10-02] MEDS ORDERED: WARFARIN NA 2 MG TABLET (UD) PO ONE (18:00)
[2017-10-03] MEDS ORDERED: DEXTROSE 5%-WATER - 50 ML IVPB ONE ×3 (01:16→16:54)
[2017-10-03] MEDS ORDERED: PIPERACILLIN/TAZOBACTAM 3.375 GM VIAL IVPB ONE ×3 (01:16→16:54)
[2017-10-03] MEDS: PIPERACILLIN/TAZOB 3.375 GM 3.375 GM in DEXTROSE 5%-WATER - 50 ML IVPB SCH ×3 (01:28→17:44)
[2017-10-03] MEDS: INSULIN SLIDING SCALE (NOVOLOG) 1 VIAL SQ SCH ×4 (06:36→21:02)
[2017-10-03 08:20] LABS: BASO % 0.5 % (0-2.0); EOS % 2.6 % (0-4.5); HEMATOCRIT 40.6 % (35.4-49); HEMOGLOBIN 14.1 GM/dL (11.7-16.9); LYMPH % 25.3 % (8-40); MCHC 34.8 g/dl (32.0-35.9); MEAN PLT VOLUME 9.3 fl (7.5-11.1); MONO % 7.4 % (3.8-10.2); NEUT % 64.2 % (42.8-82.8); PLATELET COUNT 217 K/MM3 (134-434); RBC 4.56 M/mm3 (4.00-5.60); RDW 13.8 % (11.9-15.9); WHITE BLOOD COUNT 6.4 K/mm3 (4.0-10.0)
[2017-10-03 08:52] LABS: CHLORIDE 103 mmol/L (98-107); POTASSIUM 4.2 mmol/L (3.5-5.1); SODIUM 137 mmol/L (136-145)
--- NOTE | 2017-10-03 09:04 | PN ---
Progress Note (short form) - Note Progress Note: Podiatry Brief Note: L foot DFU, non-healing ulcer. Waiting on MRI report. Will make determination and discuss with infectious disease once MRI is reported. Continue present local wound care Rx. Jimmie Alvarado DPM
[2017-10-03 09:15] LABS: ALBUMIN 3.6 g/dl (3.4-5.0); ALK PHOS 101 U/L (45-117); ANION GAP 8 (8-16); BILIRUBIN,TOTAL 0.5 mg/dL (0.2-1.0); BLOOD UREA NITROGEN 19 mg/dL (7-18); CALCIUM 8.6 mg/dL (8.5-10.1); CO2 26 mmol/L (21-32); CREATININE 0.9 mg/dL (0.7-1.3); GLUCOSE,RANDOM 165 mg/dL (74-106); MAGNESIUM 1.8 mg/dL (1.8-2.4); SGOT/AST 21 U/L (15-37); SGPT/ALT 25 U/L (12-78); TOT PROT 7.7 g/dl (6.4-8.2)
[2017-10-03] MEDS: PANTOPRAZOLE 40 MG TABLET (FP) PO SCH (10:17)
--- NOTE | 2017-10-03 11:07 | PN ---
Progress Note, Physician History of Present Illness: stable no new issues going for mri today - Current Medication List Current Medications: Active Medications Acetaminophen (Tylenol -) 650 mg PO Q4H PRN PRN Reason: PAIN LEVEL 1 - 3 Collagenase (Santyl -) 1 applic TP DAILY [facility]; Protocol Last Admin: 10/02/17 12:01 Dose: 1 applic Piperacillin Sod/Tazobactam (Sod 3.375 gm/ Dextrose) 50 mls @ 100 mls/hr IVPB Q8H-IV [facility]; Protocol Last Admin: 10/03/17 10:17 Dose: 100 mls/hr Insulin Aspart (Novolog Vial Sliding Scale -) 1 vial SQ ACHS [facility]; Protocol Last Admin: 10/03/17 06:36 Dose: 2 units Pantoprazole Sodium (Protonix -) 40 mg PO DAILY [facility] Last Admin: 10/03/17 10:17 Dose: 40 mg - Objective Vital Signs: Vital Signs Temperature 97.1 F L 10/03/17 09:08 Pulse Rate 88 10/03/17 09:08 Respiratory Rate 20 10/03/17 09:08 Blood Pressure 103/59 10/03/17 09:08 O2 Sat by Pulse Oximetry (%) 99 10/02/17 22:00 Constitutional: Yes: No Distress, Calm Cardiovascular: Yes: Pulse Irregular Respiratory: Yes: Regular, CTA Bilaterally Gastrointestinal: Yes: Normal Bowel Sounds, Soft Musculoskeletal: Yes: Other Extremities: Yes: Other Wound/Incision: Yes: Dressing Dry and Intact Neurological: Yes: Alert, Oriented Psychiatric: Yes: Alert, Oriented Labs: CBC, BMP 10/03/17 06:20 10/03/17 06:20 INR, PTT INR 2.53 (0.82-1.09) H D 10/02/17 06:10 Assessment/Plan Problem List - Problems (1) Diabetic foot infection Code(s): E11.628 - TYPE 2 DIABETES MELLITUS WITH OTHER SKIN COMPLICATIONS; L08.9 - LOCAL INFECTION OF THE SKIN AND SUBCUTANEOUS TISSUE, UNSP (2) Afib Code(s): I48.91 - UNSPECIFIED ATRIAL FIBRILLATION Qualifiers: Atrial fibrillation type: persistent Qualified Code(s): I48.1 - Persistent atrial fibrillation (3) Cellulitis Code(s): L03.90 - CELLULITIS, UNSPECIFIED Qualifiers: Site of cellulitis: extremity Site of cellulitis of extremity: toe Laterality: left Qualified Code(s): L03.032 - Cellulitis of left toe (4) HTN (hypertension) Code(s): I10 - ESSENTIAL (PRIMARY) HYPERTENSION Qualifiers: Hypertension type: essential hypertension Qualified Code(s): I10 - Essential (primary) hypertension (5) Wound infection Code(s): T14.8XXA - OTHER INJURY OF UNSPECIFIED BODY REGION, INITIAL ENCOUNTER; L08.9 - LOCAL INFECTION OF THE SKIN AND SUBCUTANEOUS TISSUE, UNSP (6) Wound, open, foot Code(s): S91.309A - UNSPECIFIED OPEN WOUND, UNSPECIFIED FOOT, INITIAL ENCOUNTER Qualifiers: Encounter type: initial encounter Laterality: left Qualified Code(s): S91.302A - Unspecified open wound, left foot, initial encounter Assessment/Plan cx reports noted continue abx will adjust abx [facility] podiatry plan to take patient to the or once we have imaging studies rest continue current mgmt
[2017-10-03] MEDS: COLLAGENASE CLOSTRIDIUM HIST. 30 GRAMS TUBE TP SCH (13:43)
--- NOTE | 2017-10-03 15:30 | PN ---
Physical Exam: SUBJECTIVE: Patient seen and examined at the bedside. Awaiting MRI report. OBJECTIVE: Vital Signs Period Temp Pulse Resp BP Sys/Griffith Pulse Ox Last 24 Hr 97.1 F-98.6 F 73-103 14-20 102-123/59-73 99-99 GENERAL: The patient is awake, alert, and fully oriented, in no acute distress. HEAD: Normal with no signs of trauma. EYES: PERRL, extraocular movements intact, sclera anicteric, conjunctiva clear. No ptosis. ENT: Ears normal, nares patent, oropharynx clear without exudates, moist mucous membranes. NECK: Trachea midline, full range of motion, supple. LUNGS: Breath sounds equal, clear to auscultation bilaterally, no wheezes, no crackles, no accessory muscle use. HEART: Regular rate and rhythm, S1, S2 without murmur, rub or gallop. ABDOMEN: Soft, nontender, nondistended, normoactive bowel sounds, no guarding, no rebound, no hepatosplenomegaly, no masses. EXTREMITIES: left lower ext foot cellulitis. NEUROLOGICAL: Cranial nerves II through XII grossly intact. Normal speech, gait not observed. PSYCH: Normal mood, normal affect. Laboratory Results - last 24 hr 10/02/17 10/02/17 10/03/17 17:23 21:45 05:40 WBC RBC Hgb Hct MCV MCH MCHC RDW Plt Count MPV Absolute Neuts (auto) Neutrophils % Lymphocytes % Monocytes % Eosinophils % Basophils % Nucleated RBC % Sodium Potassium Chloride Carbon Dioxide Anion Gap BUN Creatinine Creat Clearance w eGFR POC Glucometer 114 182 163 Random Glucose Calcium Magnesium Total Bilirubin AST ALT Alkaline Phosphatase Total Protein Albumin 10/03/17 10/03/17 10/03/17 06:20 06:20 11:34 WBC 6.4 RBC 4.56 Hgb 14.1 Hct 40.6 MCV 89.0 MCH 31.0 MCHC 34.8 RDW 13.8 Plt Count 217 D MPV 9.3 Absolute Neuts (auto) 4.1 Neutrophils % 64.2 Lymphocytes % 25.3 D Monocytes % 7.4 Eosinophils % 2.6 Basophils % 0.5 Nucleated RBC % 0 Sodium 137 Potassium 4.2 Chloride 103 Carbon Dioxide 26 Anion Gap 8 BUN 19 H Creatinine 0.9 Creat Clearance w eGFR > 60 POC Glucometer 161 Random Glucose 165 H D Calcium 8.6 Magnesium 1.8 Total Bilirubin 0.5 AST 21 ALT 25 Alkaline Phosphatase 101 D Total Protein 7.7 Albumin 3.6 Active Medications Generic Name Dose Route Start Last Admin Trade Name Rubens PRN Reason Stop Dose Admin Acetaminophen 650 mg 09/30/17 12:39 Tylenol - PO Q4H PRN PAIN LEVEL 1 - 3 Collagenase 1 applic 10/01/17 10:00 10/03/17 13:43 Santyl - TP 1 applic DAILY [facility] Administration Protocol Piperacillin Sod/Tazobactam 50 mls @ 100 mls/hr 09/30/17 18:45 10/03/17 10:17 Sod 3.375 gm/ Dextrose IVPB 100 mls/hr Q8H-IV [facility] Administration Protocol Insulin Aspart 1 vial 09/30/17 16:30 10/03/17 12:05 Novolog Vial Sliding Scale - SQ 2 units ACHS [facility] Administration Protocol Pantoprazole Sodium 40 mg 10/03/17 10:00 10/03/17 10:17 Protonix - PO 40 mg DAILY [facility] Administration ASSESSMENT/PLAN: Patient is a 52 year old male with a past medical history of atrial fibrillation (on coumadin), diabetes s/p left toe amputation and hypertension. He presents to the ED on 09/30/2017 for a left foot infection. ID: Left foot cellulits/infection. On Zosyn. Wound cultures pending organism. On Santyl daily. MRI ordered to rule out osteo and pending. Podiatry following. Manage pain with morphine prn. Card: Atrial fibrillation. Restart Coumadin today at lower dose. Awaiting today's INR. Endocrine Diabetes On insulin. Monitor BGMs. diabetic diet. FEN tolerating PO monitor electrolytes diabetic diet prophy Coumadin Protonix Visit type - Emergency Visit Emergency Visit: Yes ED Registration Date: 09/30/17 Care time: The patient presented to the Emergency Department on the above date and was hospitalized for further evaluation of their emergent condition. - New Patient This patient is new to me today: No - Critical Care Critical Care patient: No - Discharge Referral Referred to [facility] Med P.C.: No
[2017-10-03] MEDS ORDERED: morphine CARPU-JECT 2 MG/1 ML DISP.SYRIN IVPUSH PRN ×2 (15:42→15:51)
[2017-10-03 16:49] LABS: INR 1.44 (0.82-1.09); PROTHROMBIN TIME (PATIENT) 16.3 SEC (9.7-13.0)
[2017-10-03] MEDS ORDERED: PT OWN MED DRAWER 7, Y5N ONE (16:54)
[2017-10-03] MEDS ORDERED: INSULIN (NOVOLOG) ASPART 100 UNITS/ML 10ML VIAL ONE (17:45)
[2017-10-03] MEDS ORDERED: WARFARIN NA 7.5 MG TABLET (FP) PO SCH (18:00)
[2017-10-04] MEDS ORDERED: PIPERACILLIN/TAZOBACTAM 3.375 GM VIAL IVPB ONE ×3 (01:21→17:04)
[2017-10-04] MEDS ORDERED: DEXTROSE 5%-WATER - 50 ML IVPB ONE ×3 (01:21→17:04)
[2017-10-04] MEDS: PIPERACILLIN/TAZOB 3.375 GM 3.375 GM in DEXTROSE 5%-WATER - 50 ML IVPB SCH ×3 (01:30→17:06)
[2017-10-04] MEDS: INSULIN SLIDING SCALE (NOVOLOG) 1 VIAL SQ SCH ×4 (06:28→22:14)
[2017-10-04 07:51] LABS: BASO % 0.4 % (0-2.0); HEMATOCRIT 38.2 % (35.4-49); HEMOGLOBIN 13.2 GM/dL (11.7-16.9); LYMPH % 27.7 % (8-40); MCH 30.9 pg (25.7-33.7); MCHC 34.6 g/dl (32.0-35.9); MEAN CELL VOLUME 89.4 fl (80-96); MEAN PLT VOLUME 9.1 fl (7.5-11.1); MONO % 7.7 % (3.8-10.2); NEUT % 61.2 % (42.8-82.8); PLATELET COUNT 202 K/MM3 (134-434); RBC 4.28 M/mm3 (4.00-5.60); RDW 14.2 % (11.9-15.9); WHITE BLOOD COUNT 5.5 K/mm3 (4.0-10.0)
[2017-10-04 08:12] LABS: ALBUMIN 3.4 g/dl (3.4-5.0); ANION GAP 5 (8-16); BLOOD UREA NITROGEN 19 mg/dL (7-18); CALCIUM 8.4 mg/dL (8.5-10.1); CHLORIDE 106 mmol/L (98-107); CO2 28 mmol/L (21-32); CREATININE 0.9 mg/dL (0.7-1.3); GLUCOSE,RANDOM 168 mg/dL (74-106); MAGNESIUM 1.8 mg/dL (1.8-2.4); POTASSIUM 4.2 mmol/L (3.5-5.1); SGOT/AST 20 U/L (15-37); SGPT/ALT 25 U/L (12-78); SODIUM 139 mmol/L (136-145)
[2017-10-04 08:13] LABS: ALK PHOS 104 U/L (45-117); BILIRUBIN,TOTAL 0.4 mg/dL (0.2-1.0)
[2017-10-04 08:21] LABS: INR 1.47 (0.82-1.09); PROTHROMBIN TIME (PATIENT) 16.6 SEC (9.7-13.0)
[2017-10-04] MEDS: PANTOPRAZOLE 40 MG TABLET (FP) PO SCH (10:10)
--- NOTE | 2017-10-04 10:53 | PN ---
Physical Exam: SUBJECTIVE: Patient seen and examined. He feel well when he is in the hospital, but the wound under great toe is draining when squeeze. denies fever, chills OBJECTIVE: Vital Signs Period Temp Pulse Resp BP Sys/Griffith Pulse Ox Last 24 Hr 97.4 F-97.7 F 90-103 14-18 101-112/67-73 99 PE Neuro: alert, awake cn 2-12intact Pulm: CTAB CV: s1 s2 irregular rhythm, regular rate Abd: s nt nd + bs Ext: L foot dressing CDI , no left lower ext swelling Laboratory Results - last 24 hr 10/03/17 10/03/17 10/03/17 11:34 16:00 16:40 WBC RBC Hgb Hct MCV MCH MCHC RDW Plt Count MPV Absolute Neuts (auto) Neutrophils % Lymphocytes % Monocytes % Eosinophils % Basophils % Nucleated RBC % PT with INR 16.30 H INR 1.44 H D Sodium Potassium Chloride Carbon Dioxide Anion Gap BUN Creatinine Creat Clearance w eGFR POC Glucometer 161 153 Random Glucose Calcium Magnesium Total Bilirubin AST ALT Alkaline Phosphatase Total Protein Albumin 10/03/17 10/04/17 10/04/17 20:55 05:34 07:21 WBC 5.5 RBC 4.28 Hgb 13.2 Hct 38.2 MCV 89.4 MCH 30.9 MCHC 34.6 RDW 14.2 Plt Count 202 MPV 9.1 Absolute Neuts (auto) 3.4 Neutrophils % 61.2 Lymphocytes % 27.7 Monocytes % 7.7 Eosinophils % 3.0 Basophils % 0.4 Nucleated RBC % 0 PT with INR INR Sodium Potassium Chloride Carbon Dioxide Anion Gap BUN Creatinine Creat Clearance w eGFR POC Glucometer 289 201 Random Glucose Calcium Magnesium Total Bilirubin AST ALT Alkaline Phosphatase Total Protein Albumin 10/04/17 10/04/17 07:21 07:21 WBC RBC Hgb Hct MCV MCH MCHC RDW Plt Count MPV Absolute Neuts (auto) Neutrophils % Lymphocytes % Monocytes % Eosinophils % Basophils % Nucleated RBC % PT with INR 16.60 H INR 1.47 H Sodium 139 Potassium 4.2 Chloride 106 Carbon Dioxide 28 Anion Gap 5 L BUN 19 H Creatinine 0.9 Creat Clearance w eGFR > 60 POC Glucometer Random Glucose 168 H Calcium 8.4 L Magnesium 1.8 Total Bilirubin 0.4 AST 20 ALT 25 Alkaline Phosphatase 104 Total Protein 7.0 Albumin 3.4 Active Medications Generic Name Dose Route Start Last Admin Trade Name Rubens PRN Reason Stop Dose Admin Acetaminophen 650 mg 09/30/17 12:39 Tylenol - PO Q4H PRN PAIN LEVEL 1 - 3 Collagenase 1 applic 10/01/17 10:00 10/03/17 13:43 Santyl - TP 1 applic DAILY [facility] Administration Protocol Enoxaparin Sodium 80 mg 10/04/17 10:15 Lovenox - SQ BID [facility] Piperacillin Sod/Tazobactam 50 mls @ 100 mls/hr 09/30/17 18:45 10/04/17 10:10 Sod 3.375 gm/ Dextrose IVPB 100 mls/hr Q8H-IV [facility] Administration Protocol Insulin Aspart 1 vial 09/30/17 16:30 10/04/17 06:28 Novolog Vial Sliding Scale - SQ 4 units ACHS [facility] Administration Protocol Morphine Sulfate 2 mg 10/03/17 15:51 Morphine Injection - IVPUSH Q4H PRN PAIN LEVEL 7 - 10 Assessment: 52 year old male admitted with left foot infection Plan: 1. Left foot infection - Will need I&D and debridement in OR tomorrow with podiatry - Check INR in AM - Continue zosyn - NPO after midnight - D/w podiatry 2. Afib - Rate controlled - Hold coumadin - Start lovenox 80mg BID, hold in AM for surery 3. DM II - Hold po antidiabetic - ISS, BGM ACHS 4. DVT - On AC Problem List - Problems (1) Diabetic foot infection Code(s): E11.628 - TYPE 2 DIABETES MELLITUS WITH OTHER SKIN COMPLICATIONS; L08.9 - LOCAL INFECTION OF THE SKIN AND SUBCUTANEOUS TISSUE, UNSP (2) Afib Code(s): I48.91 - UNSPECIFIED ATRIAL FIBRILLATION Qualifiers: Atrial fibrillation type: persistent Qualified Code(s): I48.1 - Persistent atrial fibrillation (3) Cellulitis Code(s): L03.90 - CELLULITIS, UNSPECIFIED Qualifiers: Site of cellulitis: extremity Site of cellulitis of extremity: toe Laterality: left Qualified Code(s): L03.032 - Cellulitis of left toe (4) HTN (hypertension) Code(s): I10 - ESSENTIAL (PRIMARY) HYPERTENSION Qualifiers: Hypertension type: essential hypertension Qualified Code(s): I10 - Essential (primary) hypertension (5) Wound infection Code(s): T14.8XXA - OTHER INJURY OF UNSPECIFIED BODY REGION, INITIAL ENCOUNTER; L08.9 - LOCAL INFECTION OF THE SKIN AND SUBCUTANEOUS TISSUE, UNSP (6) Wound, open, foot Code(s): S91.309A - UNSPECIFIED OPEN WOUND, UNSPECIFIED FOOT, INITIAL ENCOUNTER Qualifiers: Encounter type: initial encounter Laterality: left Qualified Code(s): S91.302A - Unspecified open wound, left foot, initial encounter Visit type - Emergency Visit Emergency Visit: Yes ED Registration Date: 09/30/17 Care time: The patient presented to the Emergency Department on the above date and was hospitalized for further evaluation of their emergent condition. - New Patient This patient is new to me today: No - Critical Care Critical Care patient: No
[2017-10-04] MEDS ORDERED: INSULIN (NOVOLOG) ASPART 100 UNITS/ML 10ML VIAL ONE (11:45)
[2017-10-04] MEDS: ENOXAPARIN NA (PORCINE) 80 MG/0.8 ML DISP.SYRIN SQ SCH ×2 (11:50→22:14)
--- NOTE | 2017-10-04 14:46 | PN ---
Progress Note, Physician History of Present Illness: stable patient doing well probably for or tomorrow - Current Medication List Current Medications: Active Medications Acetaminophen (Tylenol -) 650 mg PO Q4H PRN PRN Reason: PAIN LEVEL 1 - 3 Collagenase (Santyl -) 1 applic TP DAILY [facility]; Protocol Last Admin: 10/03/17 13:43 Dose: 1 applic Enoxaparin Sodium (Lovenox -) 80 mg SQ BID [facility] Last Admin: 10/04/17 11:50 Dose: 80 mg Piperacillin Sod/Tazobactam (Sod 3.375 gm/ Dextrose) 50 mls @ 100 mls/hr IVPB Q8H-IV [facility]; Protocol Last Admin: 10/04/17 10:10 Dose: 100 mls/hr Insulin Aspart (Novolog Vial Sliding Scale -) 1 vial SQ ACHS [facility]; Protocol Last Admin: 10/04/17 11:11 Dose: Not Given Morphine Sulfate (Morphine Injection -) 2 mg IVPUSH Q4H PRN PRN Reason: PAIN LEVEL 7 - 10 - Objective Vital Signs: Vital Signs Temperature 97.5 F L 10/04/17 05:30 Pulse Rate 90 10/04/17 05:30 Respiratory Rate 14 10/04/17 05:30 Blood Pressure 101/67 10/04/17 05:30 O2 Sat by Pulse Oximetry (%) 99 10/03/17 20:09 Constitutional: Yes: No Distress, Calm Cardiovascular: Yes: Pulse Irregular Respiratory: Yes: Regular, CTA Bilaterally Gastrointestinal: Yes: Normal Bowel Sounds, Soft Musculoskeletal: Yes: WNL Extremities: Yes: Other Wound/Incision: Yes: Dressing Dry and Intact Neurological: Yes: Alert Labs: CBC, BMP 10/04/17 07:21 10/04/17 07:21 INR, PTT INR 1.47 (0.82-1.09) H 10/04/17 07:21 Assessment/Plan Problem List - Problems (1) Diabetic foot infection Code(s): E11.628 - TYPE 2 DIABETES MELLITUS WITH OTHER SKIN COMPLICATIONS; L08.9 - LOCAL INFECTION OF THE SKIN AND SUBCUTANEOUS TISSUE, UNSP (2) Afib Code(s): I48.91 - UNSPECIFIED ATRIAL FIBRILLATION Qualifiers: Atrial fibrillation type: persistent Qualified Code(s): I48.1 - Persistent atrial fibrillation (3) Cellulitis Code(s): L03.90 - CELLULITIS, UNSPECIFIED Qualifiers: Site of cellulitis: extremity Site of cellulitis of extremity: toe Laterality: left Qualified Code(s): L03.032 - Cellulitis of left toe (4) HTN (hypertension) Code(s): I10 - ESSENTIAL (PRIMARY) HYPERTENSION Qualifiers: Hypertension type: essential hypertension Qualified Code(s): I10 - Essential (primary) hypertension (5) Wound infection Code(s): T14.8XXA - OTHER INJURY OF UNSPECIFIED BODY REGION, INITIAL ENCOUNTER; L08.9 - LOCAL INFECTION OF THE SKIN AND SUBCUTANEOUS TISSUE, UNSP (6) Wound, open, foot Code(s): S91.309A - UNSPECIFIED OPEN WOUND, UNSPECIFIED FOOT, INITIAL ENCOUNTER Qualifiers: Encounter type: initial encounter Laterality: left Qualified Code(s): S91.302A - Unspecified open wound, left foot, initial encounter Assessment/Plan imaging studies seen for or tomorrow continue abx depending on findings we will plan treatment
[2017-10-04] MEDS: COLLAGENASE CLOSTRIDIUM HIST. 30 GRAMS TUBE TP SCH (22:25)
[2017-10-05] MEDS ORDERED: PIPERACILLIN/TAZOBACTAM 3.375 GM VIAL IVPB ONE ×3 (00:39→17:41)
[2017-10-05] MEDS ORDERED: DEXTROSE 5%-WATER - 50 ML IVPB ONE ×3 (00:39→17:42)
[2017-10-05] MEDS: PIPERACILLIN/TAZOB 3.375 GM 3.375 GM in DEXTROSE 5%-WATER - 50 ML IVPB SCH ×3 (02:52→17:52)
[2017-10-05] MEDS: INSULIN SLIDING SCALE (NOVOLOG) 1 VIAL SQ SCH ×4 (06:41→21:27)
[2017-10-05 08:09] LABS: INR 1.81 (0.82-1.09); PROTHROMBIN TIME (PATIENT) 20.5 SEC (9.7-13.0)
[2017-10-05] MEDS ORDERED: LIDOCAINE HCL 2% (20ML MULTI-DOSE VIAL) NR ONE (11:50)
[2017-10-05] MEDS: COLLAGENASE CLOSTRIDIUM HIST. 30 GRAMS TUBE TP SCH (11:52)
[2017-10-05 12:41] LABS: INR 1.74 (0.82-1.09); PROTHROMBIN TIME (PATIENT) 19.7 SEC (9.7-13.0)
--- NOTE | 2017-10-05 14:32 | PN ---
Progress Note, Physician History of Present Illness: patient for or today spoke [facility] podiatry plan to send cx from or - Current Medication List Current Medications: Active Medications Acetaminophen (Tylenol -) 650 mg PO Q4H PRN PRN Reason: PAIN LEVEL 1 - 3 Collagenase (Santyl -) 1 applic TP DAILY [facility]; Protocol Last Admin: 10/05/17 11:52 Dose: Not Given Enoxaparin Sodium (Lovenox -) 80 mg SQ BID [facility] Last Admin: 10/04/17 22:14 Dose: 80 mg Piperacillin Sod/Tazobactam (Sod 3.375 gm/ Dextrose) 50 mls @ 100 mls/hr IVPB Q8H-IV [facility]; Protocol Last Admin: 10/05/17 10:17 Dose: 100 mls/hr Insulin Aspart (Novolog Vial Sliding Scale -) 1 vial SQ ACHS [facility]; Protocol Last Admin: 10/05/17 11:52 Dose: Not Given Morphine Sulfate (Morphine Injection -) 2 mg IVPUSH Q4H PRN PRN Reason: PAIN LEVEL 7 - 10 - Objective Vital Signs: Vital Signs Temperature 97.8 F 10/05/17 10:00 Pulse Rate 98 H 10/05/17 10:00 Respiratory Rate 18 10/05/17 10:00 Blood Pressure 110/61 10/05/17 10:00 O2 Sat by Pulse Oximetry (%) 100 10/05/17 08:51 Constitutional: Yes: No Distress, Calm Cardiovascular: Yes: Pulse Irregular Respiratory: Yes: Regular, CTA Bilaterally Gastrointestinal: Yes: Normal Bowel Sounds, Soft Musculoskeletal: Yes: WNL Extremities: Yes: Other Wound/Incision: Yes: Dressing Dry and Intact Neurological: Yes: Alert, Oriented Psychiatric: Yes: Alert, Oriented Labs: CBC, BMP 10/04/17 07:21 10/04/17 07:21 INR, PTT INR 1.74 (0.82-1.09) H 10/05/17 11:55 Assessment/Plan Problem List - Problems (1) Diabetic foot infection Code(s): E11.628 - TYPE 2 DIABETES MELLITUS WITH OTHER SKIN COMPLICATIONS; L08.9 - LOCAL INFECTION OF THE SKIN AND SUBCUTANEOUS TISSUE, UNSP (2) Afib Code(s): I48.91 - UNSPECIFIED ATRIAL FIBRILLATION Qualifiers: Atrial fibrillation type: persistent Qualified Code(s): I48.1 - Persistent atrial fibrillation (3) Cellulitis Code(s): L03.90 - CELLULITIS, UNSPECIFIED Qualifiers: Site of cellulitis: extremity Site of cellulitis of extremity: toe Laterality: left Qualified Code(s): L03.032 - Cellulitis of left toe (4) HTN (hypertension) Code(s): I10 - ESSENTIAL (PRIMARY) HYPERTENSION Qualifiers: Hypertension type: essential hypertension Qualified Code(s): I10 - Essential (primary) hypertension (5) Wound infection Code(s): T14.8XXA - OTHER INJURY OF UNSPECIFIED BODY REGION, INITIAL ENCOUNTER; L08.9 - LOCAL INFECTION OF THE SKIN AND SUBCUTANEOUS TISSUE, UNSP (6) Wound, open, foot Code(s): S91.309A - UNSPECIFIED OPEN WOUND, UNSPECIFIED FOOT, INITIAL ENCOUNTER Qualifiers: Encounter type: initial encounter Laterality: left Qualified Code(s): S91.302A - Unspecified open wound, left foot, initial encounter Assessment/Plan imaging studies seen for or today will check what er cx show continue abx depending on findings we will plan treatment
[2017-10-05] MEDS ORDERED: ONDANSETRON 4 MG/2 ML VIAL IVPUSH PRN ×2 (14:52→16:45)
--- NOTE | 2017-10-05 14:54 | PN ---
Physical Exam: SUBJECTIVE: Patient seen and examined. He is aware of planned procedure, he agree to SNF after hospital dc. OBJECTIVE: Vital Signs Period Temp Pulse Resp BP Sys/Griffith Pulse Ox Last 24 Hr 97.3 F-97.8 F 92-98 18-20 91-110/61-71 100-100 PE Neuro: alert, awake cn 2-12intact Pulm: CTAB CV: s1 s2 irregular rhythm, regular rate Abd: s nt nd + bs Ext: L foot dressing CDI , no left lower ext swelling Laboratory Results - last 24 hr 10/04/17 10/04/17 10/05/17 16:26 22:13 06:02 PT with INR INR POC Glucometer 173 144 180 Blood Type Antibody Screen 10/05/17 10/05/17 10/05/17 07:15 11:43 11:55 PT with INR 20.50 H 19.70 H INR 1.81 H 1.74 H POC Glucometer 143 Blood Type Antibody Screen 10/05/17 10/05/17 13:05 13:20 PT with INR INR POC Glucometer Blood Type O POSITIVE O POSITIVE Antibody Screen Negative Active Medications Generic Name Dose Route Start Last Admin Trade Name Freq PRN Reason Stop Dose Admin Acetaminophen 650 mg 09/30/17 12:39 Tylenol - PO Q4H PRN PAIN LEVEL 1 - 3 Collagenase 1 applic 10/01/17 10:00 10/05/17 11:52 Santyl - TP Not Given DAILY [facility] Protocol Enoxaparin Sodium 80 mg 10/04/17 10:15 10/04/17 22:14 Lovenox - SQ 80 mg BID [facility] Administration Fentanyl 50 mcg 10/05/17 14:52 Sublimaze Injection - IVPUSH [id number] PRN PAIN-PACU ORDER X 4 DOSES ONLY Piperacillin Sod/Tazobactam 50 mls @ 100 mls/hr 09/30/17 18:45 10/05/17 10:17 Sod 3.375 gm/ Dextrose IVPB 100 mls/hr Q8H-IV [facility] Administration Protocol Lactated Ringer's 1,000 mls @ 75 mls/hr 10/05/17 15:00 Lactated Ringers Solution IV ASDIR [facility] Insulin Aspart 1 vial 09/30/17 16:30 10/05/17 11:52 Novolog Vial Sliding Scale - SQ Not Given ACHS [facility] Protocol Morphine Sulfate 2 mg 10/03/17 15:51 Morphine Injection - IVPUSH Q4H PRN PAIN LEVEL 7 - 10 Ondansetron HCl 4 mg 10/05/17 14:52 Zofran Injection IVPUSH Q6H PRN NAUSEA AND/OR VOMITING Assessment: 52 year old male pmhx of DM II, HTN, A fib on coumadin, OM s/p Left partial great toe and 4th toe amputation admitted with left foot infection Plan: 1. Left foot infection - Will need I&D and debridement in OR today with podiatry - 1 units ffp 30 mins before surgery - Continue zosyn - D/w podiatry 2. Afib - Rate controlled - INR elevated for surgery, s/p ffp enroute today - Resume coumadin tonight bridge with lovenox - Lovenox 80mg BID 3. DM II - Hold po antidiabetic - ISS, BGM ACHS 4. DVT - On AC Problem List - Problems (1) Diabetic foot infection Code(s): E11.628 - TYPE 2 DIABETES MELLITUS WITH OTHER SKIN COMPLICATIONS; L08.9 - LOCAL INFECTION OF THE SKIN AND SUBCUTANEOUS TISSUE, UNSP (2) Afib Code(s): I48.91 - UNSPECIFIED ATRIAL FIBRILLATION Qualifiers: Atrial fibrillation type: persistent Qualified Code(s): I48.1 - Persistent atrial fibrillation (3) Cellulitis Code(s): L03.90 - CELLULITIS, UNSPECIFIED Qualifiers: Site of cellulitis: extremity Site of cellulitis of extremity: toe Laterality: left Qualified Code(s): L03.032 - Cellulitis of left toe (4) HTN (hypertension) Code(s): I10 - ESSENTIAL (PRIMARY) HYPERTENSION Qualifiers: Hypertension type: essential hypertension Qualified Code(s): I10 - Essential (primary) hypertension (5) Wound infection Code(s): T14.8XXA - OTHER INJURY OF UNSPECIFIED BODY REGION, INITIAL ENCOUNTER; L08.9 - LOCAL INFECTION OF THE SKIN AND SUBCUTANEOUS TISSUE, UNSP (6) Wound, open, foot Code(s): S91.309A - UNSPECIFIED OPEN WOUND, UNSPECIFIED FOOT, INITIAL ENCOUNTER Qualifiers: Encounter type: initial encounter Laterality: left Qualified Code(s): S91.302A - Unspecified open wound, left foot, initial encounter Visit type - Emergency Visit Emergency Visit: Yes ED Registration Date: 09/30/17 Care time: The patient presented to the Emergency Department on the above date and was hospitalized for further evaluation of their emergent condition. - New Patient This patient is new to me today: No - Critical Care Critical Care patient: No
[2017-10-05] MEDS ORDERED: LIDOCAINE HCL 2% (50ML VIAL) INF ONE (14:58)
[2017-10-05] MEDS ORDERED: LACTATED RINGERS SOLUTION 1,000 ML IV SCH ×2 (15:00→16:45)
[2017-10-05] MEDS ORDERED: MIDAZOLAM HCL 2 MG/2 ML SINGLE DOSE VIAL ONE (15:01)
[2017-10-05] MEDS ORDERED: PROPOFOL 20 ML ONE (15:01)
[2017-10-05] MEDS ORDERED: BACITRACIN 50,000 UNITS VIAL TP ONE (15:30)
--- NOTE | 2017-10-05 16:14 | OP ---
Operative Note - Note: Operative Date: 10/05/17 Pre-Operative Diagnosis: Diabetic foot ulcer, chronic osteomyelitis left foot Operation: debridement/lavage with metatarsal head resection, left foot Post-Operative Diagnosis: Same as Pre-op Surgeon: Cristi Alvarado Anesthesia: Local, MAC Specimens Removed: bone left foot Estimated Blood Loss (mls): 30 Instrument used (Debridements only): #15 blade scalpel and curette Drains & Tubes with Location: 04/08" [place] drain Operative Report Dictated: Yes
[2017-10-05] MEDS ORDERED: oxyCODONE HCL 5 MG TABLET PO PRN (16:20)
[2017-10-05] MEDS ORDERED: morphine SULFATE 4 MG/ML VIAL IVPUSH PRN (16:45)
[2017-10-05] MEDS ORDERED: ACETAMINOPHEN 325 MG TABLET (FP) PO PRN (16:45)
--- NOTE | 2017-10-05 17:30 | OP ---
DATE OF OPERATION: 10/05/2017 PREOPERATIVE DIAGNOSIS: Left foot diabetic foot ulcer and osteomyelitis. POSTOPERATIVE DIAGNOSIS: Left foot diabetic foot ulcer and osteomyelitis. PROCEDURE: Left foot debridement and lavage with metatarsal head resection. SURGEON: Cristi Alvarado D.P.M. ANESTHESIA: IV sedation with local. HEMOSTASIS: Pneumatic ankle tourniquet. ESTIMATED BLOOD LOSS: 30 mL. PATHOLOGY: Bone, left foot. COMPLICATIONS: None. DESCRIPTION OF PROCEDURE: The patient was brought to the operating room and placed on the operating table in the supine position. A pneumatic ankle tourniquet was applied to the patient's left ankle, inflated to 250 mmHg. Following induction of IV sedation, local anesthesia was achieved utilizing 10 mL of 2% lidocaine plain. The left foot was scrubbed, prepped, and draped in the usual sterile fashion. The tourniquet was then inflated. Attention was directed to the left foot where multiple submetatarsal diabetic ulcers were visualized and appreciated. In particular, there was a sub third and fourth metatarsal diabetic ulcer probing to bone. I began by performing an excisional debridement of all devitalized tissue from the sub first and sub third and fourth metatarsal diabetic ulcers to the level of bone utilizing a sterile 15 blade pickup and a curet. All debridement was performed until there was healthy granular tissue persistent. Next, I directed my attention to the dorsal third metatarsal where a 4.0 cm curvilinear incision was made overlying the third metatarsal. The incision was deepened using sharp and blunt dissection, taking care to retract vital neural and vascular structures. All bleeders were cauterized and ligated as appropriate. Next, a dorsal linear capsulotomy was performed overlying the third metatarsal phalangeal joint. All deep capsular and periosteal structures were reflected to expose the third metatarsal head. It was noted to be friable and indicative of an infection. Next, the sagittal saw was used to resect the head of the third metatarsal. It was removed from the operative site and sent to pathology. Additionally a piece of bone from the third metatarsal head was sectioned for bone culture. An appropriate soft tissue culture was then obtained from the submetatarsal . Surgical sites were copiously irrigated with sterile saline. A 1/4-inch Yakov drain was implemented dorsal to plantar. The skin was coapted on both sides of the Yakov drain utilizing 3-0 nylon in a retention suture fashion. Following conclusion of the procedure, the tourniquet was deflated and immediate hyperemia was exhibited to the left foot. The surgical sites were covered with Xeroform, and a sterile compressive dressing was applied to the left foot consisting of sterile gauze, Dinorah, Kerlix, abdominal pads, and Beny wrap. Patient tolerated the procedure and anesthesia without complications. He was transferred from the operating room to the recovery unit with vital signs stable and neurovascular intact to the left foot. MARGIE POPE/[id number] cc: [facility]
[2017-10-05] MEDS: WARFARIN NA 5 MG TABLET (UD) PO SCH (17:51)
[2017-10-05] MEDS ORDERED: WARFARIN NA 5 MG TABLET (UD) PO SCH (18:00)
[2017-10-05] MEDS ORDERED: PT OWN MED DRAWER 7, Y5N ONE (21:30)
[2017-10-05] MEDS: ENOXAPARIN NA (PORCINE) 80 MG/0.8 ML DISP.SYRIN SQ SCH (22:07)
[2017-10-06] MEDS ORDERED: PIPERACILLIN/TAZOBACTAM 3.375 GM VIAL IVPB ONE ×3 (00:35→15:56)
[2017-10-06] MEDS ORDERED: DEXTROSE 5%-WATER - 50 ML IVPB ONE ×3 (00:36→15:56)
[2017-10-06] MEDS: PIPERACILLIN/TAZOB 3.375 GM 3.375 GM in DEXTROSE 5%-WATER - 50 ML IVPB SCH ×3 (01:20→17:03)
[2017-10-06] MEDS: INSULIN SLIDING SCALE (NOVOLOG) 1 VIAL SQ SCH ×4 (06:16→21:08)
[2017-10-06 07:18] LABS: BASO % 0.3 % (0-2.0); EOS % 1.6 % (0-4.5); HEMATOCRIT 35.5 % (35.4-49); HEMOGLOBIN 12.2 GM/dL (11.7-16.9); LYMPH % 18.7 % (8-40); MCH 30.9 pg (25.7-33.7); MCHC 34.5 g/dl (32.0-35.9); MEAN CELL VOLUME 89.6 fl (80-96); MEAN PLT VOLUME 9.4 fl (7.5-11.1); MONO % 7.1 % (3.8-10.2); NEUT % 72.3 % (42.8-82.8); PLATELET COUNT 191 K/MM3 (134-434); RBC 3.96 M/mm3 (4.00-5.60); RDW 14.1 % (11.9-15.9); WHITE BLOOD COUNT 7.3 K/mm3 (4.0-10.0)
[2017-10-06 07:28] LABS: INR 1.64 (0.82-1.09); PROTHROMBIN TIME (PATIENT) 18.5 SEC (9.7-13.0)
[2017-10-06 07:53] LABS: ANION GAP 8 (8-16); BLOOD UREA NITROGEN 14 mg/dL (7-18); CALCIUM 8.2 mg/dL (8.5-10.1); CHLORIDE 104 mmol/L (98-107); CO2 28 mmol/L (21-32); CREATININE 0.9 mg/dL (0.7-1.3); GLUCOSE,RANDOM 156 mg/dL (74-106); POTASSIUM 4.1 mmol/L (3.5-5.1); SODIUM 140 mmol/L (136-145)
--- NOTE | 2017-10-06 08:13 | PN ---
Progress Note (short form) - Note Progress Note: Podiatry: Seen/evaluated at bedside NAD. Mild pain to L foot, well controlled. Denies F/ V/N/C/SOB/CP. Currently afebrile, VSS. S/p L foot debridement with metatarsal head resection POD#1. WILLIAM: L foot: pedal pulses palpable, TG wnl, CFT brisk to remaining toes. Minimal bandage strikethrough, no active bleeding. [place] drain intact at surgical site, some oozing, no arteriolar bleeding. Sutures coapted dorsally, no dehiscence noted. No purulence, no fluctuance, no periwound erythema, no streaking cellulitis, no signs of active infection. Sub-metatarsal diabetic ulcers strong granular base, no necrotic changes, no purulence, no signs of infection. WBC: 7.3 OR Cx: pending Imp: 52 year old DM M s/p L foot debridement with metatarsal head resection POD# 1 1. [place] drain removed, DSD L foot 2. Partial weightbearing L heel with surgical shoe 3. Pain control 4. F/u OR cultures 5. Will follow Jimmie Alvarado DPM
[2017-10-06] MEDS: ENOXAPARIN NA (PORCINE) 80 MG/0.8 ML DISP.SYRIN SQ SCH ×2 (09:57→21:08)
[2017-10-06] MEDS: COLLAGENASE CLOSTRIDIUM HIST. 30 GRAMS TUBE TP SCH (10:19)
--- NOTE | 2017-10-06 10:45 | CON.CARD ---
Consult Consult Specialty:: Cardiology Referred by:: Hospitalist Medicine Reason for Consultation:: Atrial fibrillation - History of Present Illness Chief Complaint: Left diabetic foot infection History of Present Illness: 52 year old male with pmhx DM II, HTN, persistent Afib on coumadin, OM s/p Left partial great toe and 4th toe amputation admitted for worsening chronic left foot/plantar wound pain with left foot swelling since Wednesday 09/27 and unable to weight bear without pain referable to diabetic foot ulcer, chronic osteomyelitis left foot for which he underwent left foot debridement/lavage with metatarsal head resection. Pt denies fever, chills, abdominal pain, n/v, cp , dyspnea, near or true syncope, palpitations. 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 Home Medications - Allergies Allergies/Adverse Reactions: Allergies Allergy/AdvReac Type Severity Reaction Status Date / Time No Known Allergies Allergy Verified 09/14/17 17:32 - Home Medications Home Medications: Ambulatory Orders Glipizide 5 mg PO DAILY #30 tablet 07/19/17 Metformin HCl [Glucophage] 1,000 mg PO BID #60 tablet 07/19/17 Warfarin Sodium [Coumadin] 5 mg PO DAILY 09/30/17 Review of Systems - Review of Systems Musculoskeletal: reports: Extremity Pain (Left foot pain) - Risk Factors Known Risk Factors: Yes: Diabetes Mellitus Vital Signs: Vital Signs Temperature 97.8 F 10/06/17 07:35 Pulse Rate 98 H 10/06/17 07:35 Respiratory Rate 18 10/06/17 07:35 Blood Pressure 100/65 10/06/17 07:35 O2 Sat by Pulse Oximetry (%) 100 10/06/17 08:00 Constitutional: Yes: No Distress, Calm Neck: Yes: Supple Respiratory: Yes: Regular, CTA Bilaterally Gastrointestinal: Yes: Normal Bowel Sounds, Soft Cardiovascular: Yes: Pulse Irregular JVD: No Carotid Bruit: No Heart Sounds: Yes: S1, S2 Extremities: Yes: Amputation (Left toe amputations) Edema: No - Other Data Labs, Other Data: CBC, BMP 10/06/17 06:30 10/06/17 06:30 INR, PTT INR 1.64 (0.82-1.09) H 10/06/17 06:30 Afib @ 108 Imaging - Results Chest X-ray: Report Reviewed (NAD) MRI: Report Reviewed (+osteo 1st and 3rd metatarsals) Problem List - Problems (1) Amputated toe of left foot Code(s): Z89.422 - ACQUIRED ABSENCE OF OTHER LEFT TOE(S) (2) Diabetic foot infection Code(s): E11.628 - TYPE 2 DIABETES MELLITUS WITH OTHER SKIN COMPLICATIONS; L08.9 - LOCAL INFECTION OF THE SKIN AND SUBCUTANEOUS TISSUE, UNSP (3) Afib Code(s): I48.91 - UNSPECIFIED ATRIAL FIBRILLATION Qualifiers: Atrial fibrillation type: persistent Qualified Code(s): I48.1 - Persistent atrial fibrillation (4) Foot ulcer Code(s): L97.509 - NON-PRESSURE CHRONIC ULCER OTH PRT UNSP FOOT W UNSP SEVERITY Qualifiers: Laterality: left Non-pressure ulcer stage: with fat layer exposed Qualified Code(s): L97.522 - Non-pressure chronic ulcer of other part of left foot with fat layer exposed (5) Osteomyelitis of toe Code(s): M86.9 - OSTEOMYELITIS, UNSPECIFIED (6) Chronic anticoagulation Code(s): Z79.01 - CARE HOME (CURRENT) USE OF ANTICOAGULANTS Assessment/Plan 1. Persistent atrial fibrillation with RVR [id number] on NOAC 2. Diabetic foot infection, osteomyelitis of left submetatarsal h/o toe amputations POD#1 debridement/lavage with metatarsal head resection 3. Type 2 DM P:1. Continue Lovenox->Coumadin per INR and resume Cardizem CD 120 qd as hemodynamics tolerate 2. IV abx course per ID, post-op wound care, HBO2 as warranted 3. Thank you for consultative opportunity
[2017-10-06] MEDS ORDERED: INSULIN (NOVOLOG) ASPART 100 UNITS/ML 10ML VIAL ONE ×2 (11:24→21:05)
--- NOTE | 2017-10-06 13:35 | PN ---
Physical Exam: SUBJECTIVE: Patient seen and examined at the bedside. Walked to bathroom and noted he had some bleeding on surgical dressing. Dressing changed by senior copywriter and primary RN. Patient to wear surgical shoe and remain on partial weight bearing with ambulation. OBJECTIVE: Vital Signs Period Temp Pulse Resp BP Sys/Griffith Pulse Ox Last 24 Hr 97.5 F-98.1 F 80-104 10-20 93-118/55-88 97-100 GENERAL: The patient is awake, alert, and fully oriented, in no acute distress. HEAD: Normal with no signs of trauma. EYES: PERRL, extraocular movements intact, sclera anicteric, conjunctiva clear. No ptosis. ENT: Ears normal, nares patent, oropharynx clear without exudates, moist mucous membranes. NECK: Trachea midline, full range of motion, supple. LUNGS: Breath sounds equal, clear to auscultation bilaterally, no wheezes, no crackles, no accessory muscle use. HEART: Regular rate and rhythm, S1, S2 without murmur, rub or gallop. ABDOMEN: Soft, nontender, nondistended, normoactive bowel sounds, no guarding, no rebound, no hepatosplenomegaly, no masses. EXTREMITIES: left lower ext foot cellulitis. NEUROLOGICAL: Cranial nerves II through XII grossly intact. Normal speech, gait not observed. PSYCH: Normal mood, normal affect. Laboratory Results - last 24 hr 10/05/17 10/05/17 10/05/17 13:05 13:20 17:10 WBC RBC Hgb Hct MCV MCH MCHC RDW Plt Count MPV Absolute Neuts (auto) Neutrophils % Lymphocytes % Monocytes % Eosinophils % Basophils % Nucleated RBC % PT with INR INR Sodium Potassium Chloride Carbon Dioxide Anion Gap BUN Creatinine Creat Clearance w eGFR POC Glucometer 90 Random Glucose Calcium Blood Type O POSITIVE O POSITIVE Antibody Screen Negative 10/05/17 10/06/17 10/06/17 21:25 05:37 06:30 WBC RBC Hgb Hct MCV MCH MCHC RDW Plt Count MPV Absolute Neuts (auto) Neutrophils % Lymphocytes % Monocytes % Eosinophils % Basophils % Nucleated RBC % PT with INR 18.50 H INR 1.64 H Sodium Potassium Chloride Carbon Dioxide Anion Gap BUN Creatinine Creat Clearance w eGFR POC Glucometer 242 131 Random Glucose Calcium Blood Type Antibody Screen 10/06/17 10/06/17 10/06/17 06:30 06:30 11:17 WBC 7.3 RBC 3.96 L Hgb 12.2 Hct 35.5 MCV 89.6 MCH 30.9 MCHC 34.5 RDW 14.1 Plt Count 191 MPV 9.4 Absolute Neuts (auto) 5.3 Neutrophils % 72.3 Lymphocytes % 18.7 D Monocytes % 7.1 Eosinophils % 1.6 Basophils % 0.3 Nucleated RBC % 0 PT with INR INR Sodium 140 Potassium 4.1 Chloride 104 Carbon Dioxide 28 Anion Gap 8 BUN 14 Creatinine 0.9 Creat Clearance w eGFR > 60 POC Glucometer 255 Random Glucose 156 H Calcium 8.2 L Blood Type Antibody Screen Active Medications Generic Name Dose Route Start Last Admin Trade Name Freq PRN Reason Stop Dose Admin Acetaminophen 650 mg 10/05/17 16:45 Tylenol - PO Q4H PRN PAIN LEVEL 1 - 3 Collagenase 1 applic 10/06/17 10:00 10/06/17 10:19 Santyl - TP Not Given DAILY [facility] Protocol Diltiazem HCl 120 mg 10/07/17 10:00 Cardizem Cd - PO DAILY [facility] Enoxaparin Sodium 80 mg 10/05/17 22:00 10/06/17 09:57 Lovenox - SQ 80 mg BID [facility] Administration Piperacillin Sod/Tazobactam 50 mls @ 100 mls/hr 10/05/17 18:00 10/06/17 09:57 Sod 3.375 gm/ Dextrose IVPB 100 mls/hr Q8H-IV [facility] Administration Protocol Insulin Aspart 1 vial 10/05/17 22:00 10/06/17 11:33 Novolog Vial Sliding Scale - SQ 6 units ACHS [facility] Administration Protocol Morphine Sulfate 2 mg 10/05/17 16:45 Morphine Sulfate IVPUSH Q4H PRN PAIN LEVEL 7 - 10 Oxycodone HCl 5 mg 10/05/17 16:20 Roxicodone - PO Q4H PRN PAIN LEVEL 4-6 Warfarin Sodium 5 mg 10/05/17 18:00 10/05/17 17:51 Coumadin - PO 5 mg DAILY@1800 [facility] Administration ASSESSMENT/PLAN: Patient is a 52 year old male with a significant past medical history of atrial fibrillation (on coumadin), diabetes s/p left toe amputation and hypertension.. He is s/p left foot debridement with metatarsal head resection POD#1. Imaging: MRI left foot: likely osteo. status post amputation of the great toe with cellulits and suspicion for osteomyelitis of the first and third toe metatarsal heads and distal shaft sac of the heads of the signal and fourth metatarsals. No soft tissue abscess ID: Cellulitis/left foot debridement with metastarsal head resection POD#1: Dressing now c/d/i. Surgical shoe with partial weight bear status with surgical shoe reinforced. Pain management, bowel regimen. Foot wound cultures pending. On Zosyn per ID. Santyl to wound. Card: Atrial fibrillation: On Lovenox to coumadin bridge. INR 1.64. continue coumadin 5mg tonight and repeat INR in a.m. On Cardizem 120mg. Endocrine Diabetes On insulin. Monitor BGMs. diabetic diet. FEN tolerating PO monitor electrolytes diabetic diet prophy Lovenox to Coumadin Protonix Visit type - Emergency Visit Emergency Visit: Yes ED Registration Date: 09/30/17 Care time: The patient presented to the Emergency Department on the above date and was hospitalized for further evaluation of their emergent condition. - New Patient This patient is new to me today: No - Critical Care Critical Care patient: No - Discharge Referral Referred to [facility] No
--- NOTE | 2017-10-06 13:50 | PN ---
Progress Note, Physician History of Present Illness: stable post op dressing being managed by podiatry patient feels good - Current Medication List Current Medications: Active Medications Acetaminophen (Tylenol -) 650 mg PO Q4H PRN PRN Reason: PAIN LEVEL 1 - 3 Collagenase (Santyl -) 1 applic TP DAILY [facility]; Protocol Last Admin: 10/06/17 10:19 Dose: Not Given Diltiazem HCl (Cardizem Cd -) 120 mg PO DAILY [facility] Enoxaparin Sodium (Lovenox -) 80 mg SQ BID [facility] Last Admin: 10/06/17 09:57 Dose: 80 mg Piperacillin Sod/Tazobactam (Sod 3.375 gm/ Dextrose) 50 mls @ 100 mls/hr IVPB Q8H-IV [facility]; Protocol Last Admin: 10/06/17 09:57 Dose: 100 mls/hr Insulin Aspart (Novolog Vial Sliding Scale -) 1 vial SQ ACHS [facility]; Protocol Last Admin: 10/06/17 11:33 Dose: 6 units Morphine Sulfate (Morphine Sulfate) 2 mg IVPUSH Q4H PRN PRN Reason: PAIN LEVEL 7 - 10 Oxycodone HCl (Roxicodone -) 5 mg PO Q4H PRN PRN Reason: PAIN LEVEL 4-6 Warfarin Sodium (Coumadin -) 5 mg PO DAILY@1800 [facility] Last Admin: 10/05/17 17:51 Dose: 5 mg - Objective Vital Signs: Vital Signs Temperature 97.8 F 10/06/17 07:35 Pulse Rate 98 H 10/06/17 07:35 Respiratory Rate 18 10/06/17 07:35 Blood Pressure 100/65 10/06/17 07:35 O2 Sat by Pulse Oximetry (%) 100 10/06/17 08:00 Constitutional: Yes: No Distress, Calm Cardiovascular: Yes: Pulse Irregular Respiratory: Yes: Regular, CTA Bilaterally Gastrointestinal: Yes: Normal Bowel Sounds, Soft Musculoskeletal: Yes: Other Extremities: Yes: Other Wound/Incision: Yes: Dressing Dry and Intact Neurological: Yes: Alert, Oriented Psychiatric: Yes: Alert Labs: CBC, BMP 10/06/17 06:30 10/06/17 06:30 INR, PTT INR 1.64 (0.82-1.09) H 10/06/17 06:30 Assessment/Plan Problem List - Problems (1) Diabetic foot infection Code(s): E11.628 - TYPE 2 DIABETES MELLITUS WITH OTHER SKIN COMPLICATIONS; L08.9 - LOCAL INFECTION OF THE SKIN AND SUBCUTANEOUS TISSUE, UNSP (2) Afib Code(s): I48.91 - UNSPECIFIED ATRIAL FIBRILLATION Qualifiers: Atrial fibrillation type: persistent Qualified Code(s): I48.1 - Persistent atrial fibrillation (3) Cellulitis Code(s): L03.90 - CELLULITIS, UNSPECIFIED Qualifiers: Site of cellulitis: extremity Site of cellulitis of extremity: toe Laterality: left Qualified Code(s): L03.032 - Cellulitis of left toe (4) HTN (hypertension) Code(s): I10 - ESSENTIAL (PRIMARY) HYPERTENSION Qualifiers: Hypertension type: essential hypertension Qualified Code(s): I10 - Essential (primary) hypertension (5) Wound infection Code(s): T14.8XXA - OTHER INJURY OF UNSPECIFIED BODY REGION, INITIAL ENCOUNTER; L08.9 - LOCAL INFECTION OF THE SKIN AND SUBCUTANEOUS TISSUE, UNSP (6) Wound, open, foot Code(s): S91.309A - UNSPECIFIED OPEN WOUND, UNSPECIFIED FOOT, INITIAL ENCOUNTER Qualifiers: Encounter type: initial encounter Laterality: left Qualified Code(s): S91.302A - Unspecified open wound, left foot, initial encounter Assessment/Plan imaging studies seen post op will await or cx reports untill that time continue abx wound care
[2017-10-06] MEDS ORDERED: SENNOSIDES 8.6MG TABLET (FP) PO PRN (14:16)
[2017-10-06] MEDS: WARFARIN NA 5 MG TABLET (UD) PO SCH (17:02)
[2017-10-06] MEDS: DOCUSATE SODIUM 100 MG CAPSULE (FP) PO SCH (21:08)
[2017-10-07] MEDS ORDERED: DEXTROSE 5%-WATER - 50 ML IVPB ONE ×3 (00:30→16:52)
[2017-10-07] MEDS ORDERED: PIPERACILLIN/TAZOBACTAM 3.375 GM VIAL IVPB ONE ×3 (00:30→16:52)
[2017-10-07] MEDS: PIPERACILLIN/TAZOB 3.375 GM 3.375 GM in DEXTROSE 5%-WATER - 50 ML IVPB SCH ×3 (02:32→17:02)
[2017-10-07] MEDS: DOCUSATE SODIUM 100 MG CAPSULE (FP) PO SCH ×3 (05:48→21:49)
[2017-10-07] MEDS: INSULIN SLIDING SCALE (NOVOLOG) 1 VIAL SQ SCH ×4 (06:29→21:48)
[2017-10-07 07:34] LABS: BASO % 0.4 % (0-2.0); EOS % 1.9 % (0-4.5); HEMOGLOBIN 11.3 GM/dL (11.7-16.9); LYMPH % 26.9 % (8-40); MCHC 34.4 g/dl (32.0-35.9); MEAN CELL VOLUME 90.2 fl (80-96); MEAN PLT VOLUME 9.6 fl (7.5-11.1); MONO % 9.4 % (3.8-10.2); NEUT % 61.4 % (42.8-82.8); PLATELET COUNT 166 K/MM3 (134-434); RBC 3.66 M/mm3 (4.00-5.60); RDW 14.1 % (11.9-15.9); WHITE BLOOD COUNT 5.4 K/mm3 (4.0-10.0)
[2017-10-07 07:49] LABS: INR 1.56 (0.82-1.09); PROTHROMBIN TIME (PATIENT) 17.6 SEC (9.7-13.0)
[2017-10-07 08:13] LABS: POTASSIUM 4.1 mmol/L (3.5-5.1)
[2017-10-07 08:16] LABS: ALBUMIN 3.1 g/dl (3.4-5.0); ANION GAP 8 (8-16); BLOOD UREA NITROGEN 19 mg/dL (7-18); CALCIUM 7.6 mg/dL (8.5-10.1); CHLORIDE 105 mmol/L (98-107); CO2 27 mmol/L (21-32); GLUCOSE,RANDOM 218 mg/dL (74-106); MAGNESIUM 1.9 mg/dL (1.8-2.4); SODIUM 140 mmol/L (136-145)
[2017-10-07 08:17] LABS: SGOT/AST 17 U/L (15-37); SGPT/ALT 29 U/L (12-78)
[2017-10-07 08:19] LABS: ALK PHOS 106 U/L (45-117); BILIRUBIN,TOTAL 0.3 mg/dL (0.2-1.0); TOT PROT 6.6 g/dl (6.4-8.2)
--- NOTE | 2017-10-07 09:28 | PN ---
Progress Note (short form) - Note Progress Note: Podiatry F/U: Seen/evaluated at bedside NAD. Pain well controlled, denies F/V/N/C/SOB/CP. Afebrile. S/p L foot debridement with metatarsal head resection POD #2. WILLIAM: L foot: dressing C/D/I with minimal strikethrough, some oozing with no active bleeding. Sutures coapted dorsally, no dehiscence noted. Sub-metatarsal diabetic ulcers with granular base, no purulent drainage, no fluctuance, no soft tissue crepitus, no periwound erythema, no streaking cellulitis, no signs of active infection. OR Cx: pending Imp: 52 year old DM M s/p L foot debridement and metatarsal head resection 1. IV abx per ID 2. Rx santyl for L foot ulcers 3. PT partial weightbearing L heel with surgical shoe 4. Discussed with patient the necessity for minimal weightbearing in order to allow wounds to heal. He has non-functional foot secondary to multiple amputations and is at risk for further breakdown and even TMA if he continues to work and weightbear excessively. 5. Discussed with case investigator, rehab placement does not seem to be an option. 6. If bone culture and path (+), patient is willing to come to hospital for IV infusion treatment for osteomyelitis. 7. Will follow. Jimmie Alvarado DPM
[2017-10-07] MEDS ORDERED: PT OWN MED DRAWER 7, Y5N ONE (09:44)
[2017-10-07] MEDS: ENOXAPARIN NA (PORCINE) 80 MG/0.8 ML DISP.SYRIN SQ SCH ×2 (09:45→21:48)
[2017-10-07] MEDS: COLLAGENASE CLOSTRIDIUM HIST. 30 GRAMS TUBE TP SCH (10:36)
--- NOTE | 2017-10-07 11:54 | PN ---
Progress Note, Physician History of Present Illness: stable no complaints awaiting all reports and sensitivities - Current Medication List Current Medications: Active Medications Acetaminophen (Tylenol -) 650 mg PO Q4H PRN PRN Reason: PAIN LEVEL 1 - 3 Collagenase (Santyl -) 1 applic TP DAILY [facility]; Protocol Last Admin: 10/07/17 10:36 Dose: Not Given Diltiazem HCl (Cardizem Cd -) 120 mg PO DAILY [facility] Last Admin: 10/07/17 09:45 Dose: 120 mg Docusate Sodium (Colace -) 100 mg PO TID [facility] Last Admin: 10/07/17 05:48 Dose: 100 mg Enoxaparin Sodium (Lovenox -) 80 mg SQ BID [facility] Last Admin: 10/07/17 09:45 Dose: 80 mg Piperacillin Sod/Tazobactam (Sod 3.375 gm/ Dextrose) 50 mls @ 100 mls/hr IVPB Q8H-IV [facility]; Protocol Last Admin: 10/07/17 09:48 Dose: 100 mls/hr Insulin Aspart (Novolog Vial Sliding Scale -) 1 vial SQ ACHS [facility]; Protocol Last Admin: 10/07/17 11:34 Dose: 2 units Morphine Sulfate (Morphine Sulfate) 2 mg IVPUSH Q4H PRN PRN Reason: PAIN LEVEL 7 - 10 Oxycodone HCl (Roxicodone -) 5 mg PO Q4H PRN PRN Reason: PAIN LEVEL 4-6 Last Admin: 10/06/17 17:27 Dose: 5 mg Senna (Senna -) 2 tab PO HS PRN PRN Reason: CONSTIPATION Warfarin Sodium (Coumadin -) 5 mg PO DAILY@1800 [facility] Last Admin: 10/06/17 17:02 Dose: 5 mg - Objective Vital Signs: Vital Signs Temperature 97.2 F L 10/07/17 10:00 Pulse Rate 87 10/07/17 10:00 Respiratory Rate 20 10/07/17 10:00 Blood Pressure 99/61 10/07/17 10:00 O2 Sat by Pulse Oximetry (%) 96 10/07/17 09:00 Constitutional: Yes: No Distress, Calm Cardiovascular: Yes: Pulse Irregular Respiratory: Yes: Regular, CTA Bilaterally Gastrointestinal: Yes: Normal Bowel Sounds, Soft Musculoskeletal: Yes: Other Extremities: Yes: Other Wound/Incision: Yes: Dressing Dry and Intact Neurological: Yes: Alert, Oriented Labs: CBC, BMP 10/07/17 06:05 10/07/17 06:05 INR, PTT INR 1.56 (0.82-1.09) H 10/07/17 06:05 Assessment/Plan Problem List - Problems (1) Diabetic foot infection Code(s): E11.628 - TYPE 2 DIABETES MELLITUS WITH OTHER SKIN COMPLICATIONS; L08.9 - LOCAL INFECTION OF THE SKIN AND SUBCUTANEOUS TISSUE, UNSP (2) Afib Code(s): I48.91 - UNSPECIFIED ATRIAL FIBRILLATION Qualifiers: Atrial fibrillation type: persistent Qualified Code(s): I48.1 - Persistent atrial fibrillation (3) Cellulitis Code(s): L03.90 - CELLULITIS, UNSPECIFIED Qualifiers: Site of cellulitis: extremity Site of cellulitis of extremity: toe Laterality: left Qualified Code(s): L03.032 - Cellulitis of left toe (4) HTN (hypertension) Code(s): I10 - ESSENTIAL (PRIMARY) HYPERTENSION Qualifiers: Hypertension type: essential hypertension Qualified Code(s): I10 - Essential (primary) hypertension (5) Wound infection Code(s): T14.8XXA - OTHER INJURY OF UNSPECIFIED BODY REGION, INITIAL ENCOUNTER; L08.9 - LOCAL INFECTION OF THE SKIN AND SUBCUTANEOUS TISSUE, UNSP (6) Wound, open, foot Code(s): S91.309A - UNSPECIFIED OPEN WOUND, UNSPECIFIED FOOT, INITIAL ENCOUNTER Qualifiers: Encounter type: initial encounter Laterality: left Qualified Code(s): S91.302A - Unspecified open wound, left foot, initial encounter Assessment/Plan continue current mgmt await for sensitivities rest continue current mgmt abx discussed with podiatry
--- NOTE | 2017-10-07 11:59 | PN ---
Progress Note, Physician History of Present Illness: Left foot pain adequately controlled. Rate-controlled afib. Pt denies fever, chills, cp, dyspnea, near or true syncope, palpitations. - Current Medication List Current Medications: Active Medications Acetaminophen (Tylenol -) 650 mg PO Q4H PRN PRN Reason: PAIN LEVEL 1 - 3 Collagenase (Santyl -) 1 applic TP DAILY [facility]; Protocol Last Admin: 10/07/17 10:36 Dose: Not Given Diltiazem HCl (Cardizem Cd -) 120 mg PO DAILY [facility] Last Admin: 10/07/17 09:45 Dose: 120 mg Docusate Sodium (Colace -) 100 mg PO TID [facility] Last Admin: 10/07/17 05:48 Dose: 100 mg Enoxaparin Sodium (Lovenox -) 80 mg SQ BID [facility] Last Admin: 10/07/17 09:45 Dose: 80 mg Piperacillin Sod/Tazobactam (Sod 3.375 gm/ Dextrose) 50 mls @ 100 mls/hr IVPB Q8H-IV [facility]; Protocol Last Admin: 10/07/17 09:48 Dose: 100 mls/hr Insulin Aspart (Novolog Vial Sliding Scale -) 1 vial SQ ACHS [facility]; Protocol Last Admin: 10/07/17 11:34 Dose: 2 units Morphine Sulfate (Morphine Sulfate) 2 mg IVPUSH Q4H PRN PRN Reason: PAIN LEVEL 7 - 10 Oxycodone HCl (Roxicodone -) 5 mg PO Q4H PRN PRN Reason: PAIN LEVEL 4-6 Last Admin: 10/06/17 17:27 Dose: 5 mg Senna (Senna -) 2 tab PO HS PRN PRN Reason: CONSTIPATION Warfarin Sodium (Coumadin -) 5 mg PO DAILY@1800 [facility] Last Admin: 10/06/17 17:02 Dose: 5 mg - Objective Vital Signs: Vital Signs Temperature 97.2 F L 10/07/17 10:00 Pulse Rate 87 10/07/17 10:00 Respiratory Rate 20 10/07/17 10:00 Blood Pressure 99/61 10/07/17 10:00 O2 Sat by Pulse Oximetry (%) 96 10/07/17 09:00 Constitutional: Yes: No Distress, Calm Neck: Yes: Supple Cardiovascular: Yes: Pulse Irregular Respiratory: Yes: Regular, CTA Bilaterally Gastrointestinal: Yes: Normal Bowel Sounds, Soft Edema: No Wound/Incision: Yes: Dressing Dry and Intact Labs: CBC, BMP 10/07/17 06:05 10/07/17 06:05 INR, PTT INR 1.56 (0.82-1.09) H 10/07/17 06:05 Problem List - Problems (1) Amputated toe of left foot Code(s): Z89.422 - ACQUIRED ABSENCE OF OTHER LEFT TOE(S) (2) Diabetic foot infection Code(s): E11.628 - TYPE 2 DIABETES MELLITUS WITH OTHER SKIN COMPLICATIONS; L08.9 - LOCAL INFECTION OF THE SKIN AND SUBCUTANEOUS TISSUE, UNSP (3) Afib Code(s): I48.91 - UNSPECIFIED ATRIAL FIBRILLATION Qualifiers: Atrial fibrillation type: persistent Qualified Code(s): I48.1 - Persistent atrial fibrillation (4) Foot ulcer Code(s): L97.509 - NON-PRESSURE CHRONIC ULCER OTH PRT UNSP FOOT W UNSP SEVERITY Qualifiers: Laterality: left Non-pressure ulcer stage: with fat layer exposed Qualified Code(s): L97.522 - Non-pressure chronic ulcer of other part of left foot with fat layer exposed (5) Osteomyelitis of toe Code(s): M86.9 - OSTEOMYELITIS, UNSPECIFIED (6) Chronic anticoagulation Code(s): Z79.01 - PNEUMATIC TUBE FITTER (CURRENT) USE OF ANTICOAGULANTS Assessment/Plan 1. Persistent atrial fibrillation with improved rate-control [id number] on Coumadin with subtherapeutic INR 2. Diabetic foot infection, osteomyelitis of left submetatarsal h/o toe amputations POD#2 debridement/lavage with metatarsal head resection 3. Type 2 DM P:1. Continue Lovenox->Coumadin per INR and Cardizem CD 120 qd as hemodynamics tolerate 2. IV abx course per ID, post-op wound care
--- NOTE | 2017-10-07 14:39 | PN ---
Physical Exam: SUBJECTIVE: Patient seen and examined at the bedside. Discussed the possibility of patient learning to self inject insulin as well as monitor his own blood sugars. He is open to being taught. OBJECTIVE: Will tighten sliding scale to aide in wound healing. Patient willing to be taught how to use sliding scale and insulin . Vital Signs Period Temp Pulse Resp BP Sys/Griffith Pulse Ox Last 24 Hr 97.2 F 83-99 18-20 98-104/53-61 96-100 GENERAL: The patient is awake, alert, and fully oriented, in no acute distress. HEAD: Normal with no signs of trauma. EYES: PERRL, extraocular movements intact, sclera anicteric, conjunctiva clear. No ptosis. ENT: Ears normal, nares patent, oropharynx clear without exudates, moist mucous membranes. NECK: Trachea midline, full range of motion, supple. ABDOMEN: Soft, nontender, nondistended, normoactive bowel sounds, no guarding, no rebound, no hepatosplenomegaly, no masses. EXTREMITIES: left lower ext foot cellulitis, dressing c/d/i NEUROLOGICAL: Cranial nerves II through XII grossly intact. Normal speech, gait not observed. PSYCH: Normal mood, normal affect. Laboratory Results - last 24 hr 10/06/17 10/06/17 10/07/17 16:24 21:02 05:42 WBC RBC Hgb Hct MCV MCH MCHC RDW Plt Count MPV Absolute Neuts (auto) Neutrophils % Lymphocytes % Monocytes % Eosinophils % Basophils % Nucleated RBC % PT with INR INR Sodium Potassium Chloride Carbon Dioxide Anion Gap BUN Creatinine Creat Clearance w eGFR POC Glucometer 156 230 197 Random Glucose Calcium Magnesium Total Bilirubin AST ALT Alkaline Phosphatase Total Protein Albumin 10/07/17 10/07/17 10/07/17 06:05 06:05 06:05 WBC 5.4 RBC 3.66 L Hgb 11.3 L Hct 33.0 L MCV 90.2 MCH 31.0 MCHC 34.4 RDW 14.1 Plt Count 166 MPV 9.6 Absolute Neuts (auto) 3.3 Neutrophils % 61.4 Lymphocytes % 26.9 D Monocytes % 9.4 Eosinophils % 1.9 Basophils % 0.4 Nucleated RBC % 0 PT with INR 17.60 H INR 1.56 H Sodium 140 Potassium 4.1 Chloride 105 Carbon Dioxide 27 Anion Gap 8 BUN 19 H Creatinine 1.0 Creat Clearance w eGFR > 60 POC Glucometer Random Glucose 218 H D Calcium 7.6 L Magnesium 1.9 Total Bilirubin 0.3 AST 17 ALT 29 Alkaline Phosphatase 106 Total Protein 6.6 Albumin 3.1 L 10/07/17 11:30 WBC RBC Hgb Hct MCV MCH MCHC RDW Plt Count MPV Absolute Neuts (auto) Neutrophils % Lymphocytes % Monocytes % Eosinophils % Basophils % Nucleated RBC % PT with INR INR Sodium Potassium Chloride Carbon Dioxide Anion Gap BUN Creatinine Creat Clearance w eGFR POC Glucometer 187 Random Glucose Calcium Magnesium Total Bilirubin AST ALT Alkaline Phosphatase Total Protein Albumin Active Medications Generic Name Dose Route Start Last Admin Trade Name Freq PRN Reason Stop Dose Admin Acetaminophen 650 mg 10/05/17 16:45 Tylenol - PO Q4H PRN PAIN LEVEL 1 - 3 Collagenase 1 applic 10/06/17 10:00 10/07/17 10:36 Santyl - TP Not Given DAILY [facility] Protocol Diltiazem HCl 120 mg 10/07/17 10:00 10/07/17 09:45 Cardizem Cd - PO 120 mg DAILY [facility] Administration Docusate Sodium 100 mg 10/06/17 22:00 10/07/17 13:03 Colace - PO 100 mg TID [facility] Administration Enoxaparin Sodium 80 mg 10/05/17 22:00 10/07/17 09:45 Lovenox - SQ 80 mg BID [facility] Administration Piperacillin Sod/Tazobactam 50 mls @ 100 mls/hr 10/05/17 18:00 10/07/17 09:48 Sod 3.375 gm/ Dextrose IVPB 100 mls/hr Q8H-IV [facility] Administration Protocol Insulin Aspart 1 vial 10/05/17 22:00 10/07/17 11:34 Novolog Vial Sliding Scale - SQ 2 units ACHS [facility] Administration Protocol Morphine Sulfate 2 mg 10/05/17 16:45 Morphine Sulfate IVPUSH Q4H PRN PAIN LEVEL 7 - 10 Oxycodone HCl 5 mg 10/05/17 16:20 10/06/17 17:27 Roxicodone - PO 5 mg Q4H PRN Administration PAIN LEVEL 4-6 Senna 2 tab 10/06/17 14:16 Senna - PO HS PRN CONSTIPATION Warfarin Sodium 5 mg 10/05/17 18:00 10/06/17 17:02 Coumadin - PO 5 mg DAILY@1800 [facility] Administration ASSESSMENT/PLAN: Patient is a 52 year old male with a significant past medical history of atrial fibrillation (on coumadin), diabetes s/p left toe amputation and hypertension.. He is s/p left foot debridement with metatarsal head resection. Imaging: MRI left foot: likely osteo. status post amputation of the great toe with cellulits and suspicion for osteomyelitis of the first and third toe metatarsal heads and distal shaft sac of the heads of the signal and fourth metatarsals. POD#2. No soft tissue abscess ID: Cellulitis/left foot debridement with metastarsal head resection: Dressing now c /d/i. Surgical shoe with partial weight bear status with surgical shoe reinforced. Pain management, bowel regimen. Foot wound cultures pending. On Zosyn per ID. Santyl to wound. Card: Atrial fibrillation: On Lovenox to coumadin bridge. INR 1.64. continue coumadin 5mg tonight and repeat INR in a.m. On Cardizem 120mg. Endocrine Diabetes On insulin. Monitor BGMs. diabetic diet. Start teaching patient on how to self inject. FEN tolerating PO monitor electrolytes diabetic diet prophy Lovenox to Coumadin Protonix Visit type - Emergency Visit Emergency Visit: Yes ED Registration Date: 09/30/17 Care time: The patient presented to the Emergency Department on the above date and was hospitalized for further evaluation of their emergent condition. - New Patient This patient is new to me today: No - Critical Care Critical Care patient: No - Discharge Referral Referred to [facility] No
[2017-10-07] MEDS ORDERED: INSULIN (NOVOLOG) ASPART 100 UNITS/ML 10ML VIAL ONE (16:29)
[2017-10-07] MEDS: WARFARIN NA 5 MG TABLET (UD) PO SCH (17:00)
[2017-10-08] MEDS ORDERED: DEXTROSE 5%-WATER - 50 ML IVPB ONE ×3 (01:16→17:19)
[2017-10-08] MEDS ORDERED: PIPERACILLIN/TAZOBACTAM 3.375 GM VIAL IVPB ONE ×3 (01:16→17:19)
[2017-10-08] MEDS: PIPERACILLIN/TAZOB 3.375 GM 3.375 GM in DEXTROSE 5%-WATER - 50 ML IVPB SCH ×3 (01:59→17:22)
[2017-10-08] MEDS: DOCUSATE SODIUM 100 MG CAPSULE (FP) PO SCH ×3 (06:44→21:11)
[2017-10-08] MEDS: INSULIN SLIDING SCALE (NOVOLOG) 1 VIAL SQ SCH ×4 (06:44→21:11)
[2017-10-08 08:01] LABS: BASO % 0.4 % (0-2.0); HEMATOCRIT 32.7 % (35.4-49); HEMOGLOBIN 11.3 GM/dL (11.7-16.9); MCH 30.9 pg (25.7-33.7); MCHC 34.6 g/dl (32.0-35.9); MEAN CELL VOLUME 89.3 fl (80-96); MONO % 9.1 % (3.8-10.2); NEUT % 59.5 % (42.8-82.8); PLATELET COUNT 162 K/MM3 (134-434); RBC 3.66 M/mm3 (4.00-5.60); RDW 13.9 % (11.9-15.9); WHITE BLOOD COUNT 5.6 K/mm3 (4.0-10.0)
[2017-10-08 08:15] LABS: INR 1.68 (0.82-1.09)
[2017-10-08 08:25] LABS: CHLORIDE 106 mmol/L (98-107); POTASSIUM 4.3 mmol/L (3.5-5.1); SODIUM 138 mmol/L (136-145)
[2017-10-08 08:33] LABS: ALBUMIN 3.2 g/dl (3.4-5.0); ALK PHOS 93 U/L (45-117); ANION GAP 8 (8-16); BILIRUBIN,TOTAL 0.3 mg/dL (0.2-1.0); BLOOD UREA NITROGEN 17 mg/dL (7-18); CALCIUM 8.4 mg/dL (8.5-10.1); CO2 24 mmol/L (21-32); CREATININE 0.7 mg/dL (0.7-1.3); GLUCOSE,RANDOM 171 mg/dL (74-106); MAGNESIUM 1.9 mg/dL (1.8-2.4); SGOT/AST 28 U/L (15-37); SGPT/ALT 39 U/L (12-78); TOT PROT 6.6 g/dl (6.4-8.2)
[2017-10-08] MEDS: ENOXAPARIN NA (PORCINE) 80 MG/0.8 ML DISP.SYRIN SQ SCH ×2 (10:07→21:12)
[2017-10-08] MEDS: COLLAGENASE CLOSTRIDIUM HIST. 30 GRAMS TUBE TP SCH (10:33)
[2017-10-08] MEDS ORDERED: INSULIN (NOVOLOG) ASPART 100 UNITS/ML 10ML VIAL ONE ×2 (10:48→20:51)
--- NOTE | 2017-10-08 11:08 | PN ---
Progress Note, Physician History of Present Illness: patient stable says he had some bleeding from the foot while bearing weight rest doing well - Current Medication List Current Medications: Active Medications Acetaminophen (Tylenol -) 650 mg PO Q4H PRN PRN Reason: PAIN LEVEL 1 - 3 Collagenase (Santyl -) 1 applic TP DAILY [facility]; Protocol Last Admin: 10/08/17 10:33 Dose: 1 applic Diltiazem HCl (Cardizem Cd -) 120 mg PO DAILY [facility] Last Admin: 10/08/17 10:08 Dose: 120 mg Docusate Sodium (Colace -) 100 mg PO TID [facility] Last Admin: 10/08/17 06:44 Dose: 100 mg Enoxaparin Sodium (Lovenox -) 80 mg SQ BID [facility] Last Admin: 10/08/17 10:07 Dose: 80 mg Piperacillin Sod/Tazobactam (Sod 3.375 gm/ Dextrose) 50 mls @ 100 mls/hr IVPB Q8H-IV [facility]; Protocol Last Admin: 10/08/17 10:07 Dose: 100 mls/hr Insulin Aspart (Novolog Vial Sliding Scale -) 1 vial SQ ACHS [facility]; Protocol Last Admin: 10/08/17 06:44 Dose: 4 units Morphine Sulfate (Morphine Sulfate) 2 mg IVPUSH Q4H PRN PRN Reason: PAIN LEVEL 7 - 10 Oxycodone HCl (Roxicodone -) 5 mg PO Q4H PRN PRN Reason: PAIN LEVEL 4-6 Last Admin: 10/06/17 17:27 Dose: 5 mg Senna (Senna -) 2 tab PO HS PRN PRN Reason: CONSTIPATION Warfarin Sodium (Coumadin -) 5 mg PO DAILY@1800 [facility] Last Admin: 10/07/17 17:00 Dose: 5 mg - Objective Vital Signs: Vital Signs Temperature 97.8 F 10/08/17 05:47 Pulse Rate 78 10/08/17 05:47 Respiratory Rate 20 10/08/17 05:47 Blood Pressure 97/55 10/08/17 05:47 O2 Sat by Pulse Oximetry (%) 96 10/07/17 21:00 Constitutional: Yes: No Distress, Calm Cardiovascular: Yes: Pulse Irregular Respiratory: Yes: Regular, CTA Bilaterally Musculoskeletal: Yes: WNL Extremities: Yes: Other Wound/Incision: Yes: Bleeding Neurological: Yes: Alert, Oriented Psychiatric: Yes: Alert, Oriented Labs: CBC, BMP 10/08/17 06:45 10/08/17 06:45 INR, PTT INR 1.68 (0.82-1.09) H 10/08/17 06:45 Assessment/Plan Problem List - Problems (1) Diabetic foot infection Code(s): E11.628 - TYPE 2 DIABETES MELLITUS WITH OTHER SKIN COMPLICATIONS; L08.9 - LOCAL INFECTION OF THE SKIN AND SUBCUTANEOUS TISSUE, UNSP (2) Afib Code(s): I48.91 - UNSPECIFIED ATRIAL FIBRILLATION Qualifiers: Atrial fibrillation type: persistent Qualified Code(s): I48.1 - Persistent atrial fibrillation (3) Cellulitis Code(s): L03.90 - CELLULITIS, UNSPECIFIED Qualifiers: Site of cellulitis: extremity Site of cellulitis of extremity: toe Laterality: left Qualified Code(s): L03.032 - Cellulitis of left toe (4) HTN (hypertension) Code(s): I10 - ESSENTIAL (PRIMARY) HYPERTENSION Qualifiers: Hypertension type: essential hypertension Qualified Code(s): I10 - Essential (primary) hypertension (5) Wound infection Code(s): T14.8XXA - OTHER INJURY OF UNSPECIFIED BODY REGION, INITIAL ENCOUNTER; L08.9 - LOCAL INFECTION OF THE SKIN AND SUBCUTANEOUS TISSUE, UNSP (6) Wound, open, foot Code(s): S91.309A - UNSPECIFIED OPEN WOUND, UNSPECIFIED FOOT, INITIAL ENCOUNTER Qualifiers: Encounter type: initial encounter Laterality: left Qualified Code(s): S91.302A - Unspecified open wound, left foot, initial encounter Assessment/Plan continue current mgmt await for sensitivities rest continue current mgmt abx discussed with podiatry
--- NOTE | 2017-10-08 11:37 | PN ---
Progress Note, Physician History of Present Illness: Left foot pain adequately controlled. Rate-controlled afib. Pt denies fever, chills, cp, dyspnea, near or true syncope, palpitations. - Current Medication List Current Medications: Active Medications Acetaminophen (Tylenol -) 650 mg PO Q4H PRN PRN Reason: PAIN LEVEL 1 - 3 Collagenase (Santyl -) 1 applic TP DAILY [facility]; Protocol Last Admin: 10/08/17 10:33 Dose: 1 applic Diltiazem HCl (Cardizem Cd -) 120 mg PO DAILY [facility] Last Admin: 10/08/17 10:08 Dose: 120 mg Docusate Sodium (Colace -) 100 mg PO TID [facility] Last Admin: 10/08/17 06:44 Dose: 100 mg Enoxaparin Sodium (Lovenox -) 80 mg SQ BID [facility] Last Admin: 10/08/17 10:07 Dose: 80 mg Piperacillin Sod/Tazobactam (Sod 3.375 gm/ Dextrose) 50 mls @ 100 mls/hr IVPB Q8H-IV [facility]; Protocol Last Admin: 10/08/17 10:07 Dose: 100 mls/hr Insulin Aspart (Novolog Vial Sliding Scale -) 1 vial SQ ACHS [facility]; Protocol Last Admin: 10/08/17 11:14 Dose: 4 units Morphine Sulfate (Morphine Sulfate) 2 mg IVPUSH Q4H PRN PRN Reason: PAIN LEVEL 7 - 10 Oxycodone HCl (Roxicodone -) 5 mg PO Q4H PRN PRN Reason: PAIN LEVEL 4-6 Last Admin: 10/06/17 17:27 Dose: 5 mg Senna (Senna -) 2 tab PO HS PRN PRN Reason: CONSTIPATION Warfarin Sodium (Coumadin -) 5 mg PO DAILY@1800 [facility] Last Admin: 10/07/17 17:00 Dose: 5 mg - Objective Vital Signs: Vital Signs Temperature 97.6 F 10/08/17 10:00 Pulse Rate 78 10/08/17 10:00 Respiratory Rate 18 10/08/17 10:00 Blood Pressure 111/72 10/08/17 10:00 O2 Sat by Pulse Oximetry (%) 96 10/07/17 21:00 Constitutional: Yes: No Distress, Calm Neck: Yes: Supple Cardiovascular: Yes: Pulse Irregular Respiratory: Yes: Regular, CTA Bilaterally Gastrointestinal: Yes: Normal Bowel Sounds, Soft Extremities: Yes: Amputation (Left toe amputations) Edema: No Labs: CBC, BMP 10/08/17 06:45 10/08/17 06:45 INR, PTT INR 1.68 (0.82-1.09) H 10/08/17 06:45 Problem List - Problems (1) Amputated toe of left foot Code(s): Z89.422 - ACQUIRED ABSENCE OF OTHER LEFT TOE(S) (2) Diabetic foot infection Code(s): E11.628 - TYPE 2 DIABETES MELLITUS WITH OTHER SKIN COMPLICATIONS; L08.9 - LOCAL INFECTION OF THE SKIN AND SUBCUTANEOUS TISSUE, UNSP (3) Afib Code(s): I48.91 - UNSPECIFIED ATRIAL FIBRILLATION Qualifiers: Atrial fibrillation type: persistent Qualified Code(s): I48.1 - Persistent atrial fibrillation (4) Foot ulcer Code(s): L97.509 - NON-PRESSURE CHRONIC ULCER OTH PRT UNSP FOOT W UNSP SEVERITY Qualifiers: Laterality: left Non-pressure ulcer stage: with fat layer exposed Qualified Code(s): L97.522 - Non-pressure chronic ulcer of other part of left foot with fat layer exposed (5) Osteomyelitis of toe Code(s): M86.9 - OSTEOMYELITIS, UNSPECIFIED (6) Chronic anticoagulation Code(s): Z79.01 - SENIOR CARE (CURRENT) USE OF ANTICOAGULANTS Assessment/Plan 1. Persistent atrial fibrillation with improved rate-control [id number] on Coumadin with subtherapeutic INR 2. Diabetic foot infection, osteomyelitis of left submetatarsal h/o toe amputations POD#3 debridement/lavage with metatarsal head resection 3. Type 2 DM P:1. Continue Lovenox->Coumadin per INR and Cardizem CD 120 qd as hemodynamics tolerate 2. IV abx course per ID, post-op wound care
[2017-10-08 12:37] VITALS: BMI 27.6
--- NOTE | 2017-10-08 15:49 | PN ---
Physical Exam: SUBJECTIVE: Patient seen and examined at the bedside. Pain improving on left foot, dressing noted to have some sero sang drainage OBJECTIVE: As per ID, await final cultures 10/05 to determine final plan on antibiotics. Vital Signs Period Temp Pulse Resp BP Sys/Griffith Pulse Ox Last 24 Hr 97.6 F-98.4 F 78-96 18-20 94-137/55-77 96-96 GENERAL: The patient is awake, alert, and fully oriented, in no acute distress. HEAD: Normal with no signs of trauma. EYES: PERRL, extraocular movements intact, sclera anicteric, conjunctiva clear. No ptosis. ENT: Ears normal, nares patent, oropharynx clear without exudates, moist mucous membranes. NECK: Trachea midline, full range of motion, supple. ABDOMEN: Soft, nontender, nondistended, normoactive bowel sounds, no guarding, no rebound, no hepatosplenomegaly, no masses. EXTREMITIES: left lower ext foot cellulitis, dressing c/d/i NEUROLOGICAL: Cranial nerves II through XII grossly intact. Normal speech, gait not observed. PSYCH: Normal mood, normal affect. Laboratory Results - last 24 hr 10/07/17 10/07/17 10/07/17 16:15 16:22 16:25 WBC RBC Hgb Hct MCV MCH MCHC RDW Plt Count MPV Absolute Neuts (auto) Neutrophils % Lymphocytes % Monocytes % Eosinophils % Basophils % Nucleated RBC % PT with INR INR Sodium Potassium Chloride Carbon Dioxide Anion Gap BUN Creatinine Creat Clearance w eGFR POC Glucometer 178 171 144 Random Glucose Calcium Magnesium Total Bilirubin AST ALT Alkaline Phosphatase Total Protein Albumin 10/07/17 10/08/17 10/08/17 21:47 05:34 06:45 WBC 5.6 RBC 3.66 L Hgb 11.3 L Hct 32.7 L MCV 89.3 MCH 30.9 MCHC 34.6 RDW 13.9 Plt Count 162 MPV 10.0 Absolute Neuts (auto) 3.3 Neutrophils % 59.5 Lymphocytes % 29.0 Monocytes % 9.1 Eosinophils % 2.0 Basophils % 0.4 Nucleated RBC % 0 PT with INR INR Sodium Potassium Chloride Carbon Dioxide Anion Gap BUN Creatinine Creat Clearance w eGFR POC Glucometer 204 162 Random Glucose Calcium Magnesium Total Bilirubin AST ALT Alkaline Phosphatase Total Protein Albumin 10/08/17 10/08/17 10/08/17 06:45 06:45 10:44 WBC RBC Hgb Hct MCV MCH MCHC RDW Plt Count MPV Absolute Neuts (auto) Neutrophils % Lymphocytes % Monocytes % Eosinophils % Basophils % Nucleated RBC % PT with INR 19.00 H INR 1.68 H Sodium 138 Potassium 4.3 Chloride 106 Carbon Dioxide 24 Anion Gap 8 BUN 17 Creatinine 0.7 Creat Clearance w eGFR > 60 POC Glucometer 197 Random Glucose 171 H D Calcium 8.4 L Magnesium 1.9 Total Bilirubin 0.3 AST 28 D ALT 39 D Alkaline Phosphatase 93 D Total Protein 6.6 Albumin 3.2 L Active Medications Generic Name Dose Route Start Last Admin Trade Name Freq PRN Reason Stop Dose Admin Acetaminophen 650 mg 10/05/17 16:45 Tylenol - PO Q4H PRN PAIN LEVEL 1 - 3 Collagenase 1 applic 10/06/17 10:00 10/08/17 10:33 Santyl - TP 1 applic DAILY [facility] Administration Protocol Diltiazem HCl 120 mg 10/07/17 10:00 10/08/17 10:08 Cardizem Cd - PO 120 mg DAILY [facility] Administration Docusate Sodium 100 mg 10/06/17 22:00 10/08/17 13:14 Colace - PO 100 mg TID [facility] Administration Enoxaparin Sodium 80 mg 10/05/17 22:00 10/08/17 10:07 Lovenox - SQ 80 mg BID [facility] Administration Piperacillin Sod/Tazobactam 50 mls @ 100 mls/hr 10/05/17 18:00 10/08/17 10:07 Sod 3.375 gm/ Dextrose IVPB 100 mls/hr Q8H-IV [facility] Administration Protocol Insulin Aspart 1 vial 10/07/17 15:34 10/08/17 15:46 Novolog Vial Sliding Scale - SQ 4 units ACHS [facility] Administration Protocol Morphine Sulfate 2 mg 10/05/17 16:45 Morphine Sulfate IVPUSH Q4H PRN PAIN LEVEL 7 - 10 Oxycodone HCl 5 mg 10/05/17 16:20 10/06/17 17:27 Roxicodone - PO 5 mg Q4H PRN Administration PAIN LEVEL 4-6 Senna 2 tab 10/06/17 14:16 Senna - PO HS PRN CONSTIPATION Warfarin Sodium 5 mg 10/05/17 18:00 10/07/17 17:00 Coumadin - PO 5 mg DAILY@1800 [facility] Administration ASSESSMENT/PLAN: Patient is a 52 year old male with a significant past medical history of atrial fibrillation (on coumadin), diabetes s/p left toe amputation and hypertension. He is s/p left foot debridement with metatarsal head resection on 10/05/2017. Imaging: MRI left foot: likely osteo. status post amputation of the great toe with cellulitis and suspicion for osteomyelitis of the first and third toe metatarsal heads and distal shaft sac of the heads of the signal and fourth metatarsals. POD#3. No soft tissue abscess. Awaiting final culture per ID for decision on exterminator helper termite antibiotics. ID: Cellulitis/left foot debridement with metastarsal head resection: Surgical shoe with partial weight bear status with surgical shoe reinforced. Pain management, bowel regimen. Foot wound cultures pending. On Zosyn per ID. Santyl to wound. Card: Atrial fibrillation: On Lovenox to coumadin bridge. INR 1.68. continue coumadin 5mg tonight and repeat INR in a.m. On Cardizem 120mg. Endocrine Diabetes On insulin. Monitor BGMs. diabetic diet. Start teaching patient on how to self inject and monitor his own blood sugars. FEN tolerating PO monitor electrolytes diabetic diet prophy Lovenox to Coumadin Protonix Visit type - Emergency Visit Emergency Visit: Yes ED Registration Date: 09/30/17 Care time: The patient presented to the Emergency Department on the above date and was hospitalized for further evaluation of their emergent condition. - New Patient This patient is new to me today: No - Critical Care Critical Care patient: No - Discharge Referral Referred to [facility] Med P.C.: No
[2017-10-08] MEDS: WARFARIN NA 5 MG TABLET (UD) PO SCH (17:22)
[2017-10-08] MEDS: INSULIN (LEVEMIR) 100 UNITS/ML UNITS SQ SCH (21:12)
[2017-10-09] MEDS ORDERED: DEXTROSE 5%-WATER - 50 ML IVPB ONE ×2 (01:29→09:14)
[2017-10-09] MEDS ORDERED: PIPERACILLIN/TAZOBACTAM 3.375 GM VIAL IVPB ONE ×2 (01:29→09:14)
[2017-10-09] MEDS: PIPERACILLIN/TAZOB 3.375 GM 3.375 GM in DEXTROSE 5%-WATER - 50 ML IVPB SCH ×2 (01:32→09:16)
[2017-10-09] MEDS: DOCUSATE SODIUM 100 MG CAPSULE (FP) PO SCH ×3 (06:32→21:31)
[2017-10-09] MEDS: INSULIN SLIDING SCALE (NOVOLOG) 1 VIAL SQ SCH ×4 (06:32→21:33)
[2017-10-09 08:37] LABS: BASO % 0.5 % (0-2.0); EOS % 2.2 % (0-4.5); HEMATOCRIT 36.2 % (35.4-49); HEMOGLOBIN 12.4 GM/dL (11.7-16.9); LYMPH % 22.4 % (8-40); MCH 30.7 pg (25.7-33.7); MCHC 34.4 g/dl (32.0-35.9); MEAN CELL VOLUME 89.2 fl (80-96); MEAN PLT VOLUME 9.9 fl (7.5-11.1); MONO % 7.4 % (3.8-10.2); NEUT % 67.5 % (42.8-82.8); PLATELET COUNT 180 K/MM3 (134-434); RBC 4.05 M/mm3 (4.00-5.60); RDW 14.1 % (11.9-15.9); WHITE BLOOD COUNT 5.9 K/mm3 (4.0-10.0)
[2017-10-09 09:16] LABS: ALBUMIN 3.7 g/dl (3.4-5.0); CALCIUM 9.2 mg/dL (8.5-10.1); CHLORIDE 103 mmol/L (98-107); POTASSIUM 4.3 mmol/L (3.5-5.1); SODIUM 138 mmol/L (136-145)
[2017-10-09] MEDS: ENOXAPARIN NA (PORCINE) 80 MG/0.8 ML DISP.SYRIN SQ SCH ×2 (09:16→21:32)
[2017-10-09] MEDS: COLLAGENASE CLOSTRIDIUM HIST. 30 GRAMS TUBE TP SCH (09:18)
[2017-10-09 09:22] LABS: ALK PHOS 91 U/L (45-117); ANION GAP 7 (8-16); BILIRUBIN,TOTAL 0.5 mg/dL (0.2-1.0); BLOOD UREA NITROGEN 15 mg/dL (7-18); CO2 28 mmol/L (21-32); CREATININE 0.9 mg/dL (0.7-1.3); GLUCOSE,RANDOM 160 mg/dL (74-106); SGOT/AST 65 U/L (15-37); SGPT/ALT 79 U/L (12-78); TOT PROT 7.5 g/dl (6.4-8.2)
[2017-10-09 09:58] LABS: INR 1.83 (0.82-1.09); PROTHROMBIN TIME (PATIENT) 20.7 SEC (9.7-13.0)
--- NOTE | 2017-10-09 11:14 | PN ---
Progress Note (short form) - Note Progress Note: c/o bleeding from his foot when he got up to go to the bathroom. claims was placing his weight on the back of the foot. denies CP, SOB, fever, chills, N/V/C /D Current Medications Generic Name Dose Route Start Last Admin Trade Name Freq PRN Reason Stop Dose Admin Acetaminophen 650 mg 10/05/17 16:45 Tylenol - PO Q4H PRN PAIN LEVEL 1 - 3 Collagenase 1 applic 10/06/17 10:00 10/09/17 09:18 Santyl - TP 1 applic DAILY [facility] Administration Protocol Diltiazem HCl 120 mg 10/07/17 10:00 10/09/17 09:16 Cardizem Cd - PO 120 mg DAILY [facility] Administration Docusate Sodium 100 mg 10/06/17 22:00 10/09/17 06:32 Colace - PO 100 mg TID [facility] Administration Enoxaparin Sodium 80 mg 10/05/17 22:00 10/09/17 09:16 Lovenox - SQ 80 mg BID [facility] Administration Piperacillin Sod/Tazobactam 50 mls @ 100 mls/hr 10/05/17 18:00 10/09/17 09:16 Sod 3.375 gm/ Dextrose IVPB 100 mls/hr Q8H-IV [facility] Administration Protocol Insulin Aspart 1 vial 10/07/17 15:34 10/09/17 06:32 Novolog Vial Sliding Scale - SQ Not Given ACHS [facility] Protocol Insulin Detemir 5 units 10/08/17 22:00 10/08/17 21:12 Levemir Vial SQ 5 units HS [facility] Administration Morphine Sulfate 2 mg 10/05/17 16:45 Morphine Sulfate IVPUSH Q4H PRN PAIN LEVEL 7 - 10 Oxycodone HCl 5 mg 10/05/17 16:20 10/06/17 17:27 Roxicodone - PO 5 mg Q4H PRN Administration PAIN LEVEL 4-6 Senna 2 tab 10/06/17 14:16 Senna - PO HS PRN CONSTIPATION Warfarin Sodium 5 mg 10/05/17 18:00 10/08/17 17:22 Coumadin - PO 5 mg DAILY@1800 [facility] Administration Last Vital Signs Temp Pulse Resp BP Pulse Ox 97.1 F L 79 19 105/55 97 10/09/17 07:33 10/09/17 07:33 07/07/18 07:33 10/09/17 07:33 10/08/17 22:00 General NAD CV S1 S2 RRR no murmur/rub/gallop Lungs CTA B/L no wheezing/rales/rhonchi Abdomen soft NT/ND Extremities L foot with ulcer at base with clots present, area is tender no active bleeding or oozing noted. s/p toe amputations. suture on dorsum looks healing well with no active bleeding or oozing. pulse 2+ Imaging: MRI left foot: likely osteo. status post amputation of the great toe with cellulitis and suspicion for osteomyelitis of the first and third toe metatarsal heads and distal shaft sac of the heads of the signal and fourth metatarsals. POD#3. No soft tissue abscess. Awaiting final culture per ID for decision on intermediate designer antibiotics. Assessment and Plan 52 year old male with a significant past medical history of atrial fibrillation (on coumadin), diabetes s/p left toe amputation and hypertension. He is s/p left foot debridement with metatarsal head resection on 10/05/2017. 1. L foot OM- s/p metatarsal head resection on 10/05. will liekly require halfway abx. awaiting to see official cx report. does not appear to have bone bx from the surgery. instructed pt to not bear weight on forefoot and to ambulate with surgical boot only. on zosyn. ID and podiatry on board. wound care per podiatry. pain control 2. acute transaminitis- very mild increase. can be from tylenol or zosyn. will d /c tylenol. awaiting for Cx report to likely adjust zosyn if able to. will trend if continues to trend up will need to consider u/s 3. Afib on coumadin- lovenox-coumadin bridge. slowly trending up. would keep at 5mg for now in setting of active bleeding of the foot and slowly titrate up. states he was controlled on 5mg prior to admission. and INR was acutally supratherapeutic at that time. cont daily INR checks. hgb is stable 4. DM- uncontrolled. A1c 8.8 therefore could possible control sugars at home with oral agents. unclear if insurance covers insulin. will re-start oral medications and evaluate if improved control. start metformin today. patient understands importance of dietary and lifestyle changes necessary. will need close glucose monitoring on discharge 5. DVT ppx- lovenox-coumadin bridge 6. pt only has obamacare which does not have SNF options so will have to go home with PICC and either come here daily to infusion center or do home abx. awaiting to hear final abx selection from ID Visit type - Emergency Visit Emergency Visit: Yes ED Registration Date: 09/30/17 Care time: The patient presented to the Emergency Department on the above date and was hospitalized for further evaluation of their emergent condition. - New Patient This patient is new to me today: Yes Date on this admission: 10/09/17 - Critical Care Critical Care patient: No - Discharge Referral Referred to [facility] Med P.C.: No
[2017-10-09] MEDS ORDERED: INSULIN (NOVOLOG) ASPART 100 UNITS/ML 10ML VIAL ONE (11:27)
--- NOTE | 2017-10-09 12:21 | PN ---
Progress Note, Physician History of Present Illness: Pt states he feels well but has some pain in Lt foot. No other specific complaints. - Current Medication List Current Medications: Active Medications Acetaminophen (Tylenol -) 650 mg PO Q4H PRN PRN Reason: PAIN LEVEL 1 - 3 Collagenase (Santyl -) 1 applic TP DAILY [facility]; Protocol Last Admin: 10/09/17 09:18 Dose: 1 applic Diltiazem HCl (Cardizem Cd -) 120 mg PO DAILY [facility] Last Admin: 10/09/17 09:16 Dose: 120 mg Docusate Sodium (Colace -) 100 mg PO TID [facility] Last Admin: 10/09/17 06:32 Dose: 100 mg Enoxaparin Sodium (Lovenox -) 80 mg SQ BID [facility] Last Admin: 10/09/17 09:16 Dose: 80 mg Ampicillin Sodium/Sulbactam (Sodium 3 gm/ Sodium Chloride) 100 mls @ 200 mls/ hr IVPB Q6H-IV [facility] Insulin Aspart (Novolog Vial Sliding Scale -) 1 vial SQ [facility]; Protocol Last Admin: 10/09/17 11:28 Dose: 6 units Insulin Detemir (Levemir Vial) 5 units SQ HS [facility] Last Admin: 10/08/17 21:12 Dose: 5 units Morphine Sulfate (Morphine Sulfate) 2 mg IVPUSH Q4H PRN PRN Reason: PAIN LEVEL 7 - 10 Oxycodone HCl (Roxicodone -) 5 mg PO Q4H PRN PRN Reason: PAIN LEVEL 4-6 Last Admin: 10/06/17 17:27 Dose: 5 mg Senna (Senna -) 2 tab PO HS PRN PRN Reason: CONSTIPATION Warfarin Sodium (Coumadin -) 7.5 mg PO DAILY@1800 [facility] - Objective Vital Signs: Vital Signs Temperature 97.4 F L 10/09/17 10:00 Pulse Rate 86 10/09/17 10:00 Respiratory Rate 18 10/09/17 10:00 Blood Pressure 100/67 10/09/17 10:00 O2 Sat by Pulse Oximetry (%) 96 10/09/17 09:00 Constitutional: Yes: No Distress, Calm Cardiovascular: Yes: Regular Rate and Rhythm Respiratory: Yes: Regular Gastrointestinal: Yes: Normal Bowel Sounds, Soft Genitourinary: Yes: WNL Edema: Yes (Lt foot) Edema: LUE: 2+ Wound/Incision: Yes: Dressing Dry and Intact Labs: CBC, BMP 10/09/17 07:50 10/09/17 07:50 INR, PTT INR 1.83 (0.82-1.09) H 10/09/17 07:50 Microbiology 10/05/17 17:30 Foot - Left Gram Stain - Final 10/05/17 17:30 Foot - Left Wound Culture - Preliminary Staphylococcus Coagulase Neg Proteus Mirabilis 10/05/17 16:23 Bone Gram Stain - Final 10/05/17 16:23 Bone Tissue Culture - Final NO GROWTH OF AEROBIC ORGANISMS AFTER 48 HOURS INCUBATION 10/05/17 16:23 Bone Anaerobic Culture - Final NO ANAEROBES WERE ISOLATED 09/30/17 10:00 Blood - Peripheral Venous Blood Culture - Final NO GROWTH AFTER 5 DAYS INCUBATION 09/30/17 10:00 Blood - Peripheral Venous Blood Culture - Final NO GROWTH AFTER 5 DAYS INCUBATION 09/30/17 09:55 Foot - Left Instep Gram Stain - Final 09/30/17 09:55 Foot - Left Instep Wound Culture - Final Proteus Mirabilis Strep Agalactiae Group B 09/30/17 09:55 Foot - Left Lateral Gram Stain - Final 09/30/17 09:55 Foot - Left Lateral Wound Culture - Final Proteus Mirabilis Strep Agalactiae Group B Staphylococcus Coagulase Neg 09/30/17 20:30 Foot - Left Plantar Gram Stain - Final 09/30/17 20:30 Foot - Left Plantar Wound Culture - Final Proteus Mirabilis Enterococcus Faecalis - ....Imaging Chest X-ray: Report Reviewed MRI: Report Reviewed Problem List - Problems (1) Amputated toe of left foot Code(s): Z89.422 - ACQUIRED ABSENCE OF OTHER LEFT TOE(S) (2) Diabetic foot infection Code(s): E11.628 - TYPE 2 DIABETES MELLITUS WITH OTHER SKIN COMPLICATIONS; L08.9 - LOCAL INFECTION OF THE SKIN AND SUBCUTANEOUS TISSUE, UNSP (3) Afib Code(s): I48.91 - UNSPECIFIED ATRIAL FIBRILLATION Qualifiers: Atrial fibrillation type: persistent Qualified Code(s): I48.1 - Persistent atrial fibrillation (4) Cellulitis Code(s): L03.90 - CELLULITIS, UNSPECIFIED Qualifiers: Site of cellulitis: extremity Site of cellulitis of extremity: toe Laterality: left Qualified Code(s): L03.032 - Cellulitis of left toe (5) Diabetes Code(s): E11.9 - TYPE 2 DIABETES MELLITUS WITHOUT COMPLICATIONS (6) HTN (hypertension) Code(s): I10 - ESSENTIAL (PRIMARY) HYPERTENSION Qualifiers: Hypertension type: essential hypertension Qualified Code(s): I10 - Essential (primary) hypertension (7) Osteomyelitis of toe Code(s): M86.9 - OSTEOMYELITIS, UNSPECIFIED Assessment/Plan 52 y.o. male with hx of DM with Lt foot OM s/p 1st toe partial amputation/ 4th toe amputation presenting with Lt foot edema/warmth/drainage now s/p debridement and MT head resection -- culture results noted -- switch from Zosyn to Unasyn -- check esr, crp -- continue wound care -- tight glycemic control
--- NOTE | 2017-10-09 12:42 | PN ---
Progress Note (short form) - Note Progress Note: Chief Compliant: Events noted, notes reviewed, foot discomfort improved, denies any chest pain or dyspnea History of Present Illness: Seen and examined. Events noted, notes reviewed, foot discomfort improved, denies any chest pain or dyspnea - Current Medication List Current Medications: Current Medications Collagenase (Santyl -) 1 applic TP DAILY [facility]; Protocol Last Admin: 10/09/17 09:18 Dose: 1 applic Diltiazem HCl (Cardizem Cd -) 120 mg PO DAILY [facility] Last Admin: 10/09/17 09:16 Dose: 120 mg Docusate Sodium (Colace -) 100 mg PO TID [facility] Last Admin: 10/09/17 06:32 Dose: 100 mg Enoxaparin Sodium (Lovenox -) 80 mg SQ BID [facility] Last Admin: 10/09/17 09:16 Dose: 80 mg Ampicillin Sodium/Sulbactam (Sodium 3 gm/ Sodium Chloride) 100 mls @ 200 mls/ hr IVPB Q6H-IV [facility] Insulin Aspart (Novolog Vial Sliding Scale -) 1 vial SQ ACHS [facility]; Protocol Last Admin: 10/09/17 11:28 Dose: 6 units Insulin Detemir (Levemir Vial) 5 units SQ HS [facility] Last Admin: 10/08/17 21:12 Dose: 5 units Morphine Sulfate (Morphine Sulfate) 2 mg IVPUSH Q4H PRN PRN Reason: PAIN LEVEL 7 - 10 Oxycodone HCl (Roxicodone -) 5 mg PO Q4H PRN PRN Reason: PAIN LEVEL 4-6 Last Admin: 10/06/17 17:27 Dose: 5 mg Senna (Senna -) 2 tab PO HS PRN PRN Reason: CONSTIPATION Warfarin Sodium (Coumadin -) 7.5 mg PO DAILY@1800 [facility] - Objective Vital Signs: Last Vital Signs Temp Pulse Resp BP Pulse Ox 97.4 F L 86 18 100/67 96 10/09/17 10:00 10/09/17 10:00 10/09/17 10:00 10/09/17 10:00 10/09/17 09:00 Intake & Output 10/06/17 10/07/17 10/08/17 10/09/17 23:59 23:59 23:59 23:59 Intake Total 1250 992 840 50 Output Total 1500 394 214 9147 Balance -250 392 40 -1150 Weight 171 lb Constitutional: No Distress, Calm Neck: Supple Cardiovascular: S1 S2 Irregularly Irregular Respiratory: CTA Bilaterally Gastrointestinal: Soft Benign Normal Bowel Sounds Extremities: Left toe amputations, Negative Edema Labs: CBC, BMP 10/09/17 07:50 10/09/17 07:50 INR, PTT INR 1.83 (0.82-1.09) H 10/09/17 07:50 Assessment/Plan ASSESSMENT: 1. Persistent atrial fibrillation [id number] score of 2 on Coumadin with sub- therapeutic INR 2. Diabetic foot infection, osteomyelitis of left submetatarsal history of toe amputations POD#4 debridement/lavage with metatarsal head resection 3. DM PLAN: 1. Continue Lovenox bridge pending therapeutic Coumadin as per INR 2. Continue Cardizem CD, hemodynamics permitting 3. Antibiotics as per the primary team Shannan Austin M.D.
[2017-10-09] MEDS: AMPICILLIN NA/SULBACTAM NA 3 GM in SODIUM CHLORIDE 100 ML IVPB SCH ×2 (14:07→21:31)
[2017-10-09] MEDS: WARFARIN NA 5 MG TABLET (UD) PO SCH (17:22)
[2017-10-09] MEDS: metFORMIN HCL 500 MG TABLET (FP) PO SCH (17:22)
[2017-10-09] MEDS ORDERED: WARFARIN NA 7.5 MG TABLET (FP) PO SCH (18:00)
[2017-10-09] MEDS ORDERED: PT OWN MED DRAWER 7, Y5N ONE (21:07)
[2017-10-09] MEDS: INSULIN (LEVEMIR) 100 UNITS/ML UNITS SQ SCH (21:31)
[2017-10-10] MEDS: AMPICILLIN NA/SULBACTAM NA 3 GM in SODIUM CHLORIDE 100 ML IVPB SCH ×4 (02:47→21:38)
[2017-10-10] MEDS: DOCUSATE SODIUM 100 MG CAPSULE (FP) PO SCH ×3 (05:39→21:38)
[2017-10-10] MEDS: INSULIN SLIDING SCALE (NOVOLOG) 1 VIAL SQ SCH ×4 (06:28→21:40)
[2017-10-10] MEDS: metFORMIN HCL 500 MG TABLET (FP) PO SCH ×2 (06:29→17:02)
[2017-10-10] MEDS ORDERED: PT OWN MED DRAWER 7, Y5N ONE ×2 (09:53→13:33)
[2017-10-10] MEDS: ENOXAPARIN NA (PORCINE) 80 MG/0.8 ML DISP.SYRIN SQ SCH ×2 (10:00→21:39)
[2017-10-10 10:15] LABS: HEMATOCRIT 36.4 % (35.4-49); HEMOGLOBIN 12.5 GM/dL (11.7-16.9); MCHC 34.3 g/dl (32.0-35.9); MEAN CELL VOLUME 90.3 fl (80-96); MEAN PLT VOLUME 10.1 fl (7.5-11.1); PLATELET COUNT 212 K/MM3 (134-434); RBC 4.03 M/mm3 (4.00-5.60); RDW 14.3 % (11.9-15.9); WHITE BLOOD COUNT 8.7 K/mm3 (4.0-10.0)
[2017-10-10 10:35] LABS: INR 1.77 (0.82-1.09)
[2017-10-10 10:51] LABS: ALBUMIN 3.8 g/dl (3.4-5.0); ANION GAP 9 (8-16); BILIRUBIN,TOTAL 0.3 mg/dL (0.2-1.0); BLOOD UREA NITROGEN 24 mg/dL (7-18); CALCIUM 8.7 mg/dL (8.5-10.1); CHLORIDE 102 mmol/L (98-107); CO2 26 mmol/L (21-32); GLUCOSE,RANDOM 211 mg/dL (74-106); POTASSIUM 4.1 mmol/L (3.5-5.1); SGOT/AST 47 U/L (15-37); SGPT/ALT 78 U/L (12-78); SODIUM 137 mmol/L (136-145); TOT PROT 7.8 g/dl (6.4-8.2)
[2017-10-10 10:52] LABS: ALK PHOS 115 U/L (45-117)
--- NOTE | 2017-10-10 11:29 | PN ---
Progress Note (short form) - Note Progress Note: Chief Compliant: Events noted, notes reviewed, foot discomfort continues to improve, denies any chest pain or dyspnea History of Present Illness: Seen and examined. Events noted, notes reviewed, foot discomfort continues to improve, denies any chest pain or dyspnea - Current Medication List Current Medications: Current Medications Collagenase (Santyl -) 1 applic TP DAILY [facility]; Protocol Last Admin: 10/09/17 09:18 Dose: 1 applic Diltiazem HCl (Cardizem Cd -) 120 mg PO DAILY [facility] Last Admin: 10/10/17 10:01 Dose: 120 mg Docusate Sodium (Colace -) 100 mg PO TID [facility] Last Admin: 10/10/17 05:39 Dose: 100 mg Enoxaparin Sodium (Lovenox -) 80 mg SQ BID [facility] Last Admin: 10/10/17 10:00 Dose: 80 mg Ampicillin Sodium/Sulbactam (Sodium 3 gm/ Sodium Chloride) 100 mls @ 200 mls/ hr IVPB Q6H-IV [facility] Last Admin: 10/10/17 10:00 Dose: 200 mls/hr Insulin Aspart (Novolog Vial Sliding Scale -) 1 vial SQ [facility]; Protocol Last Admin: 10/10/17 06:28 Dose: Not Given Insulin Detemir (Levemir Vial) 5 units SQ HS [facility] Last Admin: 10/09/17 21:31 Dose: 5 units Metformin HCl (Glucophage -) 1,000 mg PO BID@0700,1630 [facility] Last Admin: 10/10/17 06:29 Dose: 1,000 mg Morphine Sulfate (Morphine Sulfate) 2 mg IVPUSH Q4H PRN PRN Reason: PAIN LEVEL 7 - 10 Oxycodone HCl (Roxicodone -) 5 mg PO Q4H PRN PRN Reason: PAIN LEVEL 4-6 Last Admin: 10/06/17 17:27 Dose: 5 mg Senna (Senna -) 2 tab PO HS PRN PRN Reason: CONSTIPATION Warfarin Sodium (Coumadin -) 5 mg PO DAILY@1800 [facility] Last Admin: 10/09/17 17:22 Dose: 5 mg - Objective Vital Signs: Last Vital Signs Temp Pulse Resp BP Pulse Ox 98.0 F 87 18 102/67 97 10/10/17 08:00 10/10/17 08:00 10/10/17 08:00 10/10/17 08:00 10/10/17 08:38 Intake & Output 10/07/17 10/08/17 10/09/17 10/10/17 23:59 23:59 23:59 23:59 Intake Total 992 840 800 500 Output Total 538 287 1270 Balance 392 40 -1600 500 Weight 171 lb Constitutional: No Distress, Calm Neck: Supple Cardiovascular: S1 S2 Irregularly Irregular Respiratory: CTA Bilaterally Gastrointestinal: Soft Benign Normal Bowel Sounds Extremities: Left toe amputations, Negative Edema Labs: CBC, BMP 10/10/17 09:00 10/10/17 09:00 INR, PTT INR 1.77 (0.82-1.09) H 10/10/17 09:00 Assessment/Plan ASSESSMENT: 1. Persistent atrial fibrillation [id number] score of 2 on Coumadin with sub- therapeutic INR 2. Diabetic foot infection, osteomyelitis of left submetatarsal history of toe amputations POD#5 debridement/lavage with metatarsal head resection 3. DM PLAN: 1. Continue Lovenox bridge pending therapeutic Coumadin as per INR 2. Continue Cardizem CD, hemodynamics permitting 3. Antibiotics as per the primary team Shannan Austin M.D.
--- NOTE | 2017-10-10 11:48 | PN ---
Progress Note, Physician History of Present Illness: operative results discussed with podiatry patient doing well - Current Medication List Current Medications: Active Medications Collagenase (Santyl -) 1 applic TP DAILY [facility]; Protocol Last Admin: 10/09/17 09:18 Dose: 1 applic Diltiazem HCl (Cardizem Cd -) 120 mg PO DAILY [facility] Last Admin: 10/10/17 10:01 Dose: 120 mg Docusate Sodium (Colace -) 100 mg PO TID [facility] Last Admin: 10/10/17 05:39 Dose: 100 mg Enoxaparin Sodium (Lovenox -) 80 mg SQ BID [facility] Last Admin: 10/10/17 10:00 Dose: 80 mg Ampicillin Sodium/Sulbactam (Sodium 3 gm/ Sodium Chloride) 100 mls @ 200 mls/ hr IVPB Q6H-IV [facility] Last Admin: 10/10/17 10:00 Dose: 200 mls/hr Insulin Aspart (Novolog Vial Sliding Scale -) 1 vial SQ [facility]; Protocol Last Admin: 10/10/17 06:28 Dose: Not Given Insulin Detemir (Levemir Vial) 5 units SQ HS [facility] Last Admin: 10/09/17 21:31 Dose: 5 units Metformin HCl (Glucophage -) 1,000 mg PO BID@0700,1630 [facility] Last Admin: 10/10/17 06:29 Dose: 1,000 mg Morphine Sulfate (Morphine Sulfate) 2 mg IVPUSH Q4H PRN PRN Reason: PAIN LEVEL 7 - 10 Oxycodone HCl (Roxicodone -) 5 mg PO Q4H PRN PRN Reason: PAIN LEVEL 4-6 Last Admin: 10/06/17 17:27 Dose: 5 mg Senna (Senna -) 2 tab PO HS PRN PRN Reason: CONSTIPATION Warfarin Sodium (Coumadin -) 5 mg PO DAILY@1800 [facility] Last Admin: 10/09/17 17:22 Dose: 5 mg - Objective Vital Signs: Vital Signs Temperature 98.0 F 10/10/17 08:00 Pulse Rate 87 10/10/17 08:00 Respiratory Rate 18 10/10/17 08:00 Blood Pressure 102/67 10/10/17 08:00 O2 Sat by Pulse Oximetry (%) 97 10/10/17 08:38 Constitutional: Yes: No Distress, Calm Cardiovascular: Yes: Pulse Irregular Respiratory: Yes: Regular, CTA Bilaterally Gastrointestinal: Yes: Normal Bowel Sounds, Soft Musculoskeletal: Yes: WNL Extremities: Yes: Other Wound/Incision: Yes: Dressing Dry and Intact Neurological: Yes: Alert, Oriented Psychiatric: Yes: Alert Labs: CBC, BMP 10/10/17 09:00 10/10/17 09:00 INR, PTT INR 1.77 (0.82-1.09) H 10/10/17 09:00 Assessment/Plan Problem List - Problems (1) Diabetic foot infection Code(s): E11.628 - TYPE 2 DIABETES MELLITUS WITH OTHER SKIN COMPLICATIONS; L08.9 - LOCAL INFECTION OF THE SKIN AND SUBCUTANEOUS TISSUE, UNSP (2) Afib Code(s): I48.91 - UNSPECIFIED ATRIAL FIBRILLATION Qualifiers: Atrial fibrillation type: persistent Qualified Code(s): I48.1 - Persistent atrial fibrillation (3) Cellulitis Code(s): L03.90 - CELLULITIS, UNSPECIFIED Qualifiers: Site of cellulitis: extremity Site of cellulitis of extremity: toe Laterality: left Qualified Code(s): L03.032 - Cellulitis of left toe (4) HTN (hypertension) Code(s): I10 - ESSENTIAL (PRIMARY) HYPERTENSION Qualifiers: Hypertension type: essential hypertension Qualified Code(s): I10 - Essential (primary) hypertension (5) Wound infection Code(s): T14.8XXA - OTHER INJURY OF UNSPECIFIED BODY REGION, INITIAL ENCOUNTER; L08.9 - LOCAL INFECTION OF THE SKIN AND SUBCUTANEOUS TISSUE, UNSP (6) Wound, open, foot Code(s): S91.309A - UNSPECIFIED OPEN WOUND, UNSPECIFIED FOOT, INITIAL ENCOUNTER Qualifiers: Encounter type: initial encounter Laterality: left Qualified Code(s): S91.302A - Unspecified open wound, left foot, initial encounter Assessment/Plan continue current mgmt abx changed to unasyn rest continue current mgmt abx discussed with podiatry
[2017-10-10] MEDS: COLLAGENASE CLOSTRIDIUM HIST. 30 GRAMS TUBE TP SCH (15:36)
[2017-10-10] MEDS: WARFARIN NA 5 MG TABLET (UD) PO SCH (17:02)
[2017-10-10] MEDS: INSULIN (LEVEMIR) 100 UNITS/ML UNITS SQ SCH (21:39)
--- NOTE | 2017-10-10 22:30 | PN ---
Physical Exam: SUBJECTIVE: Patient seen and examined. Denies pain. Voices no complaints. OBJECTIVE: Vital Signs Period Temp Pulse Resp BP Sys/Griffith Pulse Ox Last 24 Hr 97.3 F-98.0 F 87-96 18-21 90-102/54-67 97-97 GENERAL: The patient is awake, alert, and fully oriented, in no acute distress. LUNGS: Breath sounds equal, clear to auscultation bilaterally, no wheezes, no crackles, no accessory muscle use. HEART: Regular rate and rhythm, S1, S2 ABDOMEN: Soft, nontender, nondistended EXTREMITIES: left foot plantar surface blood clot in wound bed NEUROLOGICAL: Cranial nerves II through XII grossly intact. Laboratory Results - last 24 hr 10/10/17 10/10/17 10/10/17 05:38 09:00 09:00 WBC 8.7 RBC 4.03 Hgb 12.5 Hct 36.4 MCV 90.3 MCH 31.0 MCHC 34.3 RDW 14.3 Plt Count 212 MPV 10.1 PT with INR 20.00 H INR 1.77 H Sodium Potassium Chloride Carbon Dioxide Anion Gap BUN Creatinine Creat Clearance w eGFR POC Glucometer 142 Random Glucose Calcium Total Bilirubin AST ALT Alkaline Phosphatase Total Protein Albumin 10/10/17 10/10/17 10/10/17 09:00 11:49 16:46 WBC RBC Hgb Hct MCV MCH MCHC RDW Plt Count MPV PT with INR INR Sodium 137 Potassium 4.1 Chloride 102 Carbon Dioxide 26 Anion Gap 9 BUN 24 H Creatinine 1.0 Creat Clearance w eGFR > 60 POC Glucometer 146 146 Random Glucose 211 H D Calcium 8.7 Total Bilirubin 0.3 AST 47 H D ALT 78 Alkaline Phosphatase 115 D Total Protein 7.8 Albumin 3.8 10/10/17 21:05 WBC RBC Hgb Hct MCV MCH MCHC RDW Plt Count MPV PT with INR INR Sodium Potassium Chloride Carbon Dioxide Anion Gap BUN Creatinine Creat Clearance w eGFR POC Glucometer 187 Random Glucose Calcium Total Bilirubin AST ALT Alkaline Phosphatase Total Protein Albumin Active Medications Generic Name Dose Route Start Last Admin Trade Name Freq PRN Reason Stop Dose Admin Diltiazem HCl 120 mg 10/07/17 10:00 10/10/17 10:01 Cardizem Cd - PO 120 mg DAILY [facility] Administration Docusate Sodium 100 mg 10/06/17 22:00 10/10/17 21:38 Colace - PO 100 mg TID [facility] Administration Enoxaparin Sodium 80 mg 10/05/17 22:00 10/10/17 21:39 Lovenox - SQ 80 mg BID [facility] Administration Ampicillin Sodium/Sulbactam 100 mls @ 200 mls/hr 10/09/17 15:00 10/10/17 21: 38 Sodium 3 gm/ Sodium Chloride IVPB 200 mls/hr Q6H-IV [facility] Administration Insulin Aspart 1 vial 10/07/17 15:34 10/10/17 21:40 Novolog Vial Sliding Scale - SQ 4 units ACHS [facility] Administration Protocol Insulin Detemir 5 units 10/08/17 22:00 10/10/17 21:39 Levemir Vial SQ 5 units HS [facility] Administration Metformin HCl 1,000 mg 10/09/17 16:30 10/10/17 17:02 Glucophage - PO 1,000 mg BID@0700,1630 [facility] Administration Morphine Sulfate 2 mg 10/05/17 16:45 Morphine Sulfate IVPUSH Q4H PRN PAIN LEVEL 7 - 10 Oxycodone HCl 5 mg 10/05/17 16:20 10/06/17 17:27 Roxicodone - PO 5 mg Q4H PRN Administration PAIN LEVEL 4-6 Senna 2 tab 10/06/17 14:16 Senna - PO HS PRN CONSTIPATION Warfarin Sodium 5 mg 10/09/17 18:00 10/10/17 17:02 Coumadin - PO 5 mg DAILY@1800 [facility] Administration Assessment and Plan 52 year-old male with a PMH significant for atrial fibrillation (on coumadin), and IDDM s/p left metatarsal head resection. Cellulitis and likely osteomyelitis of left first and third toe metatarsal heads --s/p debridement with metatarsal head resection on 10/05/17 --MRI shows likely osteo; surgical pathology report pending --was on empiric zosyn 09/30-10/09; cultures +staph and +proteus --continue Unasyn (day #2) Transaminitis --very mild increase --d/c Tylenol --if trends, consider ultrasound Atrial fibrillation --lovenox-coumadin bridge. slowly trending up; keep at 5mg for now in setting of active bleeding of the foot IDDM --A1c 8.8 --metformin was restarted FEN Fluids: PO intake adequate Electrolytes: replete as indicated Nutrition: diabetic diet DVT prophylaxis: lovenox-coumadin bridge Dispo: continues to require inpatient care. Pending surgical pathology report. Full code. Visit type - Emergency Visit Emergency Visit: Yes ED Registration Date: 09/30/17 Care time: The patient presented to the Emergency Department on the above date and was hospitalized for further evaluation of their emergent condition. - New Patient This patient is new to me today: No - Critical Care Critical Care patient: No
[2017-10-11] MEDS: AMPICILLIN NA/SULBACTAM NA 3 GM in SODIUM CHLORIDE 100 ML IVPB SCH ×4 (02:09→21:43)
[2017-10-11] MEDS: metFORMIN HCL 500 MG TABLET (FP) PO SCH ×2 (06:21→17:03)
[2017-10-11] MEDS: DOCUSATE SODIUM 100 MG CAPSULE (FP) PO SCH ×3 (06:21→21:43)
[2017-10-11] MEDS: INSULIN SLIDING SCALE (NOVOLOG) 1 VIAL SQ SCH ×4 (06:21→21:39)
[2017-10-11 08:25] LABS: INR 2.28 (0.82-1.09); PROTHROMBIN TIME (PATIENT) 25.8 SEC (9.7-13.0)
[2017-10-11] MEDS: ENOXAPARIN NA (PORCINE) 80 MG/0.8 ML DISP.SYRIN SQ SCH (09:11)
[2017-10-11] MEDS ORDERED: INSULIN (NOVOLOG) ASPART 100 UNITS/ML 10ML VIAL ONE (10:51)
--- NOTE | 2017-10-11 10:52 | PN ---
Physical Exam: SUBJECTIVE: Patient seen and examined OBJECTIVE: Vital Signs Period Temp Pulse Resp BP Sys/Griffith Pulse Ox Last 24 Hr 97.3 F-97.7 F 85-98 18-21 90-119/54-70 97 GENERAL: The patient is awake, alert, and fully oriented, in no acute distress. LUNGS: Breath sounds equal, clear to auscultation bilaterally, no wheezes, no crackles, no accessory muscle use. HEART: Regular rate and rhythm, S1, S2 ABDOMEN: Soft, nontender, nondistended EXTREMITIES: wound wrapped, not visualized; dressing c/d/i NEUROLOGICAL: Cranial nerves II through XII grossly intact. Laboratory Results - last 24 hr 10/10/17 10/10/17 10/10/17 09:00 11:49 16:46 PT with INR INR Sodium 137 Potassium 4.1 Chloride 102 Carbon Dioxide 26 Anion Gap 9 BUN 24 H Creatinine 1.0 Creat Clearance w eGFR > 60 POC Glucometer 146 146 Random Glucose 211 H D Calcium 8.7 Total Bilirubin 0.3 AST 47 H D ALT 78 Alkaline Phosphatase 115 D Total Protein 7.8 Albumin 3.8 10/10/17 10/11/17 10/11/17 21:05 05:40 07:29 PT with INR 25.80 H INR 2.28 H Sodium Potassium Chloride Carbon Dioxide Anion Gap BUN Creatinine Creat Clearance w eGFR POC Glucometer 187 139 Random Glucose Calcium Total Bilirubin AST ALT Alkaline Phosphatase Total Protein Albumin 10/11/17 09:56 PT with INR INR Sodium Potassium Chloride Carbon Dioxide Anion Gap BUN Creatinine Creat Clearance w eGFR POC Glucometer 177 Random Glucose Calcium Total Bilirubin AST ALT Alkaline Phosphatase Total Protein Albumin Active Medications Generic Name Dose Route Start Last Admin Trade Name Freq PRN Reason Stop Dose Admin Diltiazem HCl 120 mg 10/07/17 10:00 10/11/17 09:11 Cardizem Cd - PO 120 mg DAILY [facility] Administration Docusate Sodium 100 mg 10/06/17 22:00 10/11/17 06:21 Colace - PO 100 mg TID [facility] Administration Enoxaparin Sodium 80 mg 10/05/17 22:00 10/11/17 09:11 Lovenox - SQ 80 mg BID [facility] Administration Ampicillin Sodium/Sulbactam 100 mls @ 200 mls/hr 10/09/17 15:00 10/11/17 09: 11 Sodium 3 gm/ Sodium Chloride IVPB 200 mls/hr Q6H-IV [facility] Administration Insulin Aspart 1 vial 10/07/17 15:34 10/11/17 06:21 Novolog Vial Sliding Scale - SQ Not Given [facility] Protocol Insulin Detemir 5 units 10/08/17 22:00 10/10/17 21:39 Levemir Vial SQ 5 units HS [facility] Administration Metformin HCl 1,000 mg 10/09/17 16:30 10/11/17 06:21 Glucophage - PO 1,000 mg BID@0700,1630 [facility] Administration Oxycodone HCl 5 mg 10/05/17 16:20 10/06/17 17:27 Roxicodone - PO 5 mg Q4H PRN Administration PAIN LEVEL 4-6 Senna 2 tab 10/06/17 14:16 Senna - PO HS PRN CONSTIPATION Warfarin Sodium 5 mg 10/09/17 18:00 10/10/17 17:02 Coumadin - PO 5 mg DAILY@1800 [facility] Administration Assessment and Plan 52 year-old male with a PMH significant for atrial fibrillation (on coumadin), and IDDM s/p left metatarsal head resection. Cellulitis and likely osteomyelitis of left first and third toe metatarsal heads --s/p debridement with metatarsal head resection on 10/05/17 --MRI shows likely osteo; surgical pathology report pending, likely ready tomorrow --was on empiric zosyn 09/30-10/09; cultures +staph and +proteus --continue Unasyn (day #2) Transaminitis --very mild increase and trending down --d/c Tylenol --repeat LFTs in am Atrial fibrillation --rate well-controlled, continue diltiazem --INR 2.28 today, therapeutic; will continue lovenox another 24-48 hours IDDM --A1c 8.8 --metformin was restarted --continue Levemir, Novolog sliding scale coverage FEN Fluids: PO intake adequate Electrolytes: replete as indicated Nutrition: diabetic diet DVT prophylaxis: INR therapeutic today, continue lovenox 24-48 hours Dispo: continues to require inpatient care. Pending surgical pathology report. Full code. Visit type - Emergency Visit Emergency Visit: Yes ED Registration Date: 09/30/17 Care time: The patient presented to the Emergency Department on the above date and was hospitalized for further evaluation of their emergent condition. - New Patient This patient is new to me today: No - Critical Care Critical Care patient: No
[2017-10-11] MEDS ORDERED: PT OWN MED DRAWER 7, Y5N ONE (14:10)
--- NOTE | 2017-10-11 14:46 | PN ---
Progress Note, Physician Chief Complaint: doing well no new issues - Current Medication List Current Medications: Active Medications Diltiazem HCl (Cardizem Cd -) 120 mg PO DAILY [facility] Last Admin: 10/11/17 09:11 Dose: 120 mg Docusate Sodium (Colace -) 100 mg PO TID [facility] Last Admin: 10/11/17 13:13 Dose: 100 mg Enoxaparin Sodium (Lovenox -) 80 mg SQ BID [facility] Last Admin: 10/11/17 09:11 Dose: 80 mg Ampicillin Sodium/Sulbactam (Sodium 3 gm/ Sodium Chloride) 100 mls @ 200 mls/ hr IVPB Q6H-IV [facility] Last Admin: 10/11/17 14:14 Dose: 200 mls/hr Insulin Aspart (Novolog Vial Sliding Scale -) 1 vial SQ [facility]; Protocol Last Admin: 10/11/17 10:55 Dose: 4 units Insulin Detemir (Levemir Vial) 5 units SQ HS [facility] Last Admin: 10/10/17 21:39 Dose: 5 units Metformin HCl (Glucophage -) 1,000 mg PO BID@0700,1630 [facility] Last Admin: 10/11/17 06:21 Dose: 1,000 mg Oxycodone HCl (Roxicodone -) 5 mg PO Q4H PRN PRN Reason: PAIN LEVEL 4-6 Last Admin: 10/06/17 17:27 Dose: 5 mg Senna (Senna -) 2 tab PO HS PRN PRN Reason: CONSTIPATION Warfarin Sodium (Coumadin -) 5 mg PO DAILY@1800 [facility] Last Admin: 10/10/17 17:02 Dose: 5 mg - Objective Vital Signs: Vital Signs Temperature 97.4 F L 10/11/17 10:00 Pulse Rate 98 H 10/11/17 10:00 Respiratory Rate 20 10/11/17 10:00 Blood Pressure 119/70 10/11/17 10:00 O2 Sat by Pulse Oximetry (%) 99 10/11/17 09:00 Constitutional: Yes: No Distress, Calm Cardiovascular: Yes: Pulse Irregular Respiratory: Yes: Regular, CTA Bilaterally Gastrointestinal: Yes: Normal Bowel Sounds, Soft Musculoskeletal: Yes: WNL Extremities: Yes: Other Wound/Incision: Yes: Dressing Dry and Intact Neurological: Yes: Alert, Oriented Psychiatric: Yes: Alert, Oriented Labs: CBC, BMP 10/10/17 09:00 10/10/17 09:00 INR, PTT INR 2.28 (0.82-1.09) H 10/11/17 07:29 Assessment/Plan Problem List - Problems (1) Diabetic foot infection Code(s): E11.628 - TYPE 2 DIABETES MELLITUS WITH OTHER SKIN COMPLICATIONS; L08.9 - LOCAL INFECTION OF THE SKIN AND SUBCUTANEOUS TISSUE, UNSP (2) Afib Code(s): I48.91 - UNSPECIFIED ATRIAL FIBRILLATION Qualifiers: Atrial fibrillation type: persistent Qualified Code(s): I48.1 - Persistent atrial fibrillation (3) Cellulitis Code(s): L03.90 - CELLULITIS, UNSPECIFIED Qualifiers: Site of cellulitis: extremity Site of cellulitis of extremity: toe Laterality: left Qualified Code(s): L03.032 - Cellulitis of left toe (4) HTN (hypertension) Code(s): I10 - ESSENTIAL (PRIMARY) HYPERTENSION Qualifiers: Hypertension type: essential hypertension Qualified Code(s): I10 - Essential (primary) hypertension (5) Wound infection Code(s): T14.8XXA - OTHER INJURY OF UNSPECIFIED BODY REGION, INITIAL ENCOUNTER; L08.9 - LOCAL INFECTION OF THE SKIN AND SUBCUTANEOUS TISSUE, UNSP (6) Wound, open, foot Code(s): S91.309A - UNSPECIFIED OPEN WOUND, UNSPECIFIED FOOT, INITIAL ENCOUNTER Qualifiers: Encounter type: initial encounter Laterality: left Qualified Code(s): S91.302A - Unspecified open wound, left foot, initial encounter Assessment/Plan continue current mgmt continue current abx patient will need it for 4 more weeks will need wound care rest as per the team
--- NOTE | 2017-10-11 14:53 | PN ---
Progress Note, Physician History of Present Illness: Left foot pain adequately controlled. Rate-controlled afib. Pt denies fever, chills, cp, dyspnea, near or true syncope, palpitations. - Current Medication List Current Medications: Active Medications Diltiazem HCl (Cardizem Cd -) 120 mg PO DAILY [facility] Last Admin: 10/11/17 09:11 Dose: 120 mg Docusate Sodium (Colace -) 100 mg PO TID [facility] Last Admin: 10/11/17 13:13 Dose: 100 mg Enoxaparin Sodium (Lovenox -) 80 mg SQ BID [facility] Last Admin: 10/11/17 09:11 Dose: 80 mg Ampicillin Sodium/Sulbactam (Sodium 3 gm/ Sodium Chloride) 100 mls @ 200 mls/ hr IVPB Q6H-IV [facility] Last Admin: 10/11/17 14:14 Dose: 200 mls/hr Insulin Aspart (Novolog Vial Sliding Scale -) 1 vial SQ [facility]; Protocol Last Admin: 10/11/17 10:55 Dose: 4 units Insulin Detemir (Levemir Vial) 5 units SQ [facility] Last Admin: 10/10/17 21:39 Dose: 5 units Metformin HCl (Glucophage -) 1,000 mg PO BID@0700,1630 [facility] Last Admin: 10/11/17 06:21 Dose: 1,000 mg Oxycodone HCl (Roxicodone -) 5 mg PO Q4H PRN PRN Reason: PAIN LEVEL 4-6 Last Admin: 10/06/17 17:27 Dose: 5 mg Senna (Senna -) 2 tab PO HS PRN PRN Reason: CONSTIPATION Warfarin Sodium (Coumadin -) 5 mg PO DAILY@1800 [facility] Last Admin: 10/10/17 17:02 Dose: 5 mg - Objective Vital Signs: Vital Signs Temperature 97.4 F L 10/11/17 10:00 Pulse Rate 98 H 10/11/17 10:00 Respiratory Rate 20 10/11/17 10:00 Blood Pressure 119/70 10/11/17 10:00 O2 Sat by Pulse Oximetry (%) 99 10/11/17 09:00 Constitutional: Yes: No Distress, Calm, Thin Neck: Yes: Supple Cardiovascular: Yes: Pulse Irregular Respiratory: Yes: Regular, CTA Bilaterally Gastrointestinal: Yes: Normal Bowel Sounds Extremities: Yes: Amputation (Left toe) Labs: CBC, BMP 10/10/17 09:00 10/10/17 09:00 INR, PTT INR 2.28 (0.82-1.09) H 10/11/17 07:29 Problem List - Problems (1) Amputated toe of left foot Code(s): Z89.422 - ACQUIRED ABSENCE OF OTHER LEFT TOE(S) (2) Diabetic foot infection Code(s): E11.628 - TYPE 2 DIABETES MELLITUS WITH OTHER SKIN COMPLICATIONS; L08.9 - LOCAL INFECTION OF THE SKIN AND SUBCUTANEOUS TISSUE, UNSP (3) Afib Code(s): I48.91 - UNSPECIFIED ATRIAL FIBRILLATION Qualifiers: Atrial fibrillation type: persistent Qualified Code(s): I48.1 - Persistent atrial fibrillation (4) Foot ulcer Code(s): L97.509 - NON-PRESSURE CHRONIC ULCER OTH PRT UNSP FOOT W UNSP SEVERITY Qualifiers: Laterality: left Non-pressure ulcer stage: with fat layer exposed Qualified Code(s): L97.522 - Non-pressure chronic ulcer of other part of left foot with fat layer exposed (5) Osteomyelitis of toe Code(s): M86.9 - OSTEOMYELITIS, UNSPECIFIED (6) Chronic anticoagulation Code(s): Z79.01 - [employer] (CURRENT) USE OF ANTICOAGULANTS Assessment/Plan 1. Persistent atrial fibrillation with improved rate-control [id number] on Coumadin with therapeutic INR 2. Diabetic foot infection, osteomyelitis of left submetatarsal h/o toe amputations POD#6 debridement/lavage with metatarsal head resection 3. Type 2 DM P:1. D/c Lovenox, continue Coumadin per INR and Cardizem CD 120 qd as hemodynamics tolerate 2. IV abx course 4 weeks per ID, post-op wound care
[2017-10-11] MEDS: WARFARIN NA 5 MG TABLET (UD) PO SCH (17:04)
[2017-10-11] MEDS: INSULIN (LEVEMIR) 100 UNITS/ML UNITS SQ SCH (21:43)
[2017-10-12] MEDS ORDERED: PT OWN MED DRAWER 7, Y5N ONE ×3 (02:42→14:24)
[2017-10-12] MEDS: AMPICILLIN NA/SULBACTAM NA 3 GM in SODIUM CHLORIDE 100 ML IVPB SCH ×4 (02:44→21:11)
[2017-10-12] MEDS: INSULIN SLIDING SCALE (NOVOLOG) 1 VIAL SQ SCH ×4 (06:04→21:12)
[2017-10-12] MEDS: DOCUSATE SODIUM 100 MG CAPSULE (FP) PO SCH ×3 (06:26→21:11)
[2017-10-12] MEDS: metFORMIN HCL 500 MG TABLET (FP) PO SCH ×2 (06:26→16:29)
[2017-10-12 07:59] LABS: BASO % 0.5 % (0-2.0); EOS % 1.6 % (0-4.5); HEMATOCRIT 34.5 % (35.4-49); HEMOGLOBIN 12.1 GM/dL (11.7-16.9); LYMPH % 25.1 % (8-40); MCHC 35.1 g/dl (32.0-35.9); MEAN CELL VOLUME 88.4 fl (80-96); MEAN PLT VOLUME 9.6 fl (7.5-11.1); MONO % 8.6 % (3.8-10.2); NEUT % 64.2 % (42.8-82.8); PLATELET COUNT 181 K/MM3 (134-434); RBC 3.91 M/mm3 (4.00-5.60); WHITE BLOOD COUNT 5.5 K/mm3 (4.0-10.0)
[2017-10-12 08:10] LABS: INR 2.51 (0.82-1.09); PROTHROMBIN TIME (PATIENT) 28.4 SEC (9.7-13.0)
[2017-10-12 08:39] LABS: ALBUMIN 3.6 g/dl (3.4-5.0); BLOOD UREA NITROGEN 15 mg/dL (7-18); CO2 27 mmol/L (21-32); CREATININE 0.8 mg/dL (0.7-1.3); GLUCOSE,RANDOM 134 mg/dL (74-106); SGOT/AST 25 U/L (15-37); SGPT/ALT 55 U/L (12-78)
[2017-10-12 08:41] LABS: ALK PHOS 100 U/L (45-117); ANION GAP 7 (8-16); BILIRUBIN,TOTAL 0.4 mg/dL (0.2-1.0); CHLORIDE 105 mmol/L (98-107); POTASSIUM 3.9 mmol/L (3.5-5.1); SODIUM 139 mmol/L (136-145); TOT PROT 7.4 g/dl (6.4-8.2)
[2017-10-12] MEDS ORDERED: INSULIN (NOVOLOG) ASPART 100 UNITS/ML 10ML VIAL ONE ×3 (11:31→21:02)
--- NOTE | 2017-10-12 12:01 | PN ---
Progress Note, Physician Chief Complaint: Events noted Not in distress History of Present Illness: Patient was seen and examined. Awake and alert. Chart was reviewed Denies chest pain, SOB or palpitations - Current Medication List Current Medications: Active Medications Diltiazem HCl (Cardizem Cd -) 120 mg PO DAILY [facility] Last Admin: 10/12/17 09:41 Dose: 120 mg Docusate Sodium (Colace -) 100 mg PO TID [facility] Last Admin: 10/12/17 06:26 Dose: 100 mg Ampicillin Sodium/Sulbactam (Sodium 3 gm/ Sodium Chloride) 100 mls @ 200 mls/ hr IVPB Q6H-IV [facility] Last Admin: 10/12/17 08:11 Dose: 200 mls/hr Insulin Aspart (Novolog Vial Sliding Scale -) 1 vial SQ [facility]; Protocol Last Admin: 10/12/17 11:32 Dose: 4 units Insulin Detemir (Levemir Vial) 5 units SQ [facility] Last Admin: 10/11/17 21:43 Dose: 5 units Metformin HCl (Glucophage -) 1,000 mg PO BID@0700,1630 [facility] Last Admin: 10/12/17 06:26 Dose: 1,000 mg Oxycodone HCl (Roxicodone -) 5 mg PO Q4H PRN PRN Reason: PAIN LEVEL 4-6 Last Admin: 10/06/17 17:27 Dose: 5 mg Senna (Senna -) 2 tab PO HS PRN PRN Reason: CONSTIPATION Warfarin Sodium (Coumadin -) 5 mg PO DAILY@1800 [facility] Last Admin: 10/11/17 17:04 Dose: 5 mg - Objective Vital Signs: Vital Signs Temperature 97.5 F L 10/12/17 06:29 Pulse Rate 90 10/12/17 06:29 Respiratory Rate 20 10/12/17 06:29 Blood Pressure 108/73 10/12/17 06:29 O2 Sat by Pulse Oximetry (%) 99 10/11/17 21:00 Eyes: Yes: PERRL HENT: Yes: Atraumatic Neck: Yes: Supple Cardiovascular: Yes: Pulse Irregular, S1, S2 Respiratory: Yes: CTA Bilaterally Gastrointestinal: Yes: Normal Bowel Sounds, Soft. No: Tenderness Edema: No Wound/Incision: Yes: Dressing Dry and Intact Labs: CBC, BMP 10/12/17 07:30 10/12/17 07:30 INR, PTT INR 2.51 (0.82-1.09) H 10/12/17 07:30 Problem List - Problems (1) Amputated toe of left foot Code(s): Z89.422 - ACQUIRED ABSENCE OF OTHER LEFT TOE(S) (2) Diabetic foot infection Code(s): E11.628 - TYPE 2 DIABETES MELLITUS WITH OTHER SKIN COMPLICATIONS; L08.9 - LOCAL INFECTION OF THE SKIN AND SUBCUTANEOUS TISSUE, UNSP (3) Afib Code(s): I48.91 - UNSPECIFIED ATRIAL FIBRILLATION Qualifiers: Atrial fibrillation type: persistent Qualified Code(s): I48.1 - Persistent atrial fibrillation (4) Diabetes Code(s): E11.9 - TYPE 2 DIABETES MELLITUS WITHOUT COMPLICATIONS Qualifiers: Diabetes mellitus type: type 2 Diabetes mellitus longterm insulin use: without intermodal dispatcher use Diabetes mellitus complication status: without complication Qualified Code(s): E11.9 - Type 2 diabetes mellitus without complications (5) HTN (hypertension) Code(s): I10 - ESSENTIAL (PRIMARY) HYPERTENSION Qualifiers: Hypertension type: essential hypertension Qualified Code(s): I10 - Essential (primary) hypertension (6) Osteomyelitis of toe Code(s): M86.9 - OSTEOMYELITIS, UNSPECIFIED (7) Wound infection Code(s): T14.8XXA - OTHER INJURY OF UNSPECIFIED BODY REGION, INITIAL ENCOUNTER; L08.9 - LOCAL INFECTION OF THE SKIN AND SUBCUTANEOUS TISSUE, UNSP Assessment/Plan 1. Persistent atrial fibrillation with improved rate-control [id number] on Coumadin with therapeutic INR 2. Diabetic foot infection, osteomyelitis of left submetatarsal h/o toe amputation, debridement/lavage with metatarsal head resection 3. Type 2 DM PLAN: 1. Continue Coumadin per INR and Cardizem CD 120 qd as hemodynamics tolerate 2. Antibiotic and post-op wound care Discharge planning Barrett Ennis MD
--- NOTE | 2017-10-12 12:16 | DS ---
Physical Exam: SUBJECTIVE: Patient seen and examined OBJECTIVE: Vital Signs Period Temp Pulse Resp BP Sys/Griffith Pulse Ox Last 24 Hr 97.5 F-98.7 F 90-100 20-20 108-109/64-73 99 PHYSICAL EXAM GENERAL: The patient is awake, alert, and fully oriented, in no acute distress. LUNGS: Breath sounds equal, clear to auscultation bilaterally, no wheezes, no crackles, no accessory muscle use. HEART: Regular rate and rhythm, S1, S2 ABDOMEN: Soft, nontender, nondistended EXTREMITIES: wound wrapped, not visualized; dressing c/d/i NEUROLOGICAL: Cranial nerves II through XII grossly intact. LABS Laboratory Results - last 24 hr 10/11/17 10/11/17 10/11/17 15:49 21:38 21:51 WBC RBC Hgb Hct MCV MCH MCHC RDW Plt Count MPV Absolute Neuts (auto) Neutrophils % Lymphocytes % Monocytes % Eosinophils % Basophils % Nucleated RBC % PT with INR INR Sodium Potassium Chloride Carbon Dioxide Anion Gap BUN Creatinine Creat Clearance w eGFR POC Glucometer 150 150 104 Random Glucose Calcium Total Bilirubin AST ALT Alkaline Phosphatase Total Protein Albumin 10/12/17 10/12/17 10/12/17 05:31 07:30 07:30 WBC 5.5 RBC 3.91 L Hgb 12.1 Hct 34.5 L MCV 88.4 MCH 31.0 MCHC 35.1 RDW 14.0 Plt Count 181 MPV 9.6 Absolute Neuts (auto) 3.5 Neutrophils % 64.2 Lymphocytes % 25.1 Monocytes % 8.6 Eosinophils % 1.6 Basophils % 0.5 Nucleated RBC % 0 PT with INR 28.40 H INR 2.51 H Sodium Potassium Chloride Carbon Dioxide Anion Gap BUN Creatinine Creat Clearance w eGFR POC Glucometer 139 Random Glucose Calcium Total Bilirubin AST ALT Alkaline Phosphatase Total Protein Albumin 10/12/17 10/12/17 07:30 11:00 WBC RBC Hgb Hct MCV MCH MCHC RDW Plt Count MPV Absolute Neuts (auto) Neutrophils % Lymphocytes % Monocytes % Eosinophils % Basophils % Nucleated RBC % PT with INR INR Sodium 139 Potassium 3.9 Chloride 105 Carbon Dioxide 27 Anion Gap 7 L BUN 15 Creatinine 0.8 Creat Clearance w eGFR > 60 POC Glucometer 156 Random Glucose 134 H D Calcium 9.0 Total Bilirubin 0.4 AST 25 D ALT 55 D Alkaline Phosphatase 100 D Total Protein 7.4 Albumin 3.6 HOSPITAL COURSE: Date of Admission:09/30/17 Date of Discharge: 10/12/17 52 year-old male with a PMH significant for atrial fibrillation (on coumadin), and poorly controlled IDDM with a h/o multiple amputations of left foot. Cellulitis of left first and third toe metatarsal heads --s/p debridement with metatarsal head resection on 10/05/17 --surgical pathology NEGATIVE FOR OSTEO per Dr. Valdes --was on empiric zosyn 09/30-10/09; cultures +staph, +strep, +proteus, + enterococcus --on Unasyn x 3 days --PICC line; has received 12 days of IV therapy, will require 23 more days Transaminitis, resolved --minimally elevated initially, returned to wnl after Tylenol was dc'd Atrial fibrillation --rate well-controlled, continue diltiazem --INR 2.28-->2.51; therapeutic for 24 hours; stopped lovenox IDDM --A1c 8.8 --metformin was restarted --continue Levemir, Novolog sliding scale coverage Minutes to complete discharge: 35 Discharge Summary Reason For Visit: DIABETIC FOOT INFECTION Current Active Problems Amputated toe of left foot (Acute) Chronic anticoagulation (Acute) Diabetic foot infection (Acute) Condition: Improved - Instructions Diet, Activity, Other Instructions: Arrangements have been made for you to receive outpatient antibiotic therapy at the infusion center at [facility] tomorrow, October 14, 2017. You will be told where and what time to come. You should also follow up with Dr. Alvarado at the Wound Center. Referrals: Cristi Alvarado MD [Staff Physician] - Disposition: HOME - Home Medications Comprehensive Discharge Medication List: Ambulatory Orders Glipizide 5 mg PO DAILY #30 tablet 07/19/17 Metformin HCl [Glucophage] 1,000 mg PO BID #60 tablet 07/19/17 Warfarin Sodium [Coumadin] 5 mg PO DAILY 09/30/17 - Discharge Referral Referred to [facility] No Physician Referral: Bryn Mosher MD ([facility])
--- NOTE | 2017-10-12 14:20 | PN ---
Progress Note (short form) - Note Progress Note: Podiatry F/U: Seen/evaluated at bedside NAD. Pain controlled. Denies F/V/N/C/SOB/CP. Afebrile VSS. S/p L foot debridement and metatarsal head resection. WILLIAM: L foot: dressing C/D/I, no active bleeding. Sutures coapted dorsally, no dehiscence noted. Sub-metatarsal diabetic ulcer strong granular base, hyperkeratotic borders, no purulence, no fluctuance, no streaking cellulitis, no signs of active infection. Minimal tenderness to palpation. OR Cx: proteus Imp: 52 year old DM M s/p L foot debridement and metatarsal head resection 1. Santyl + DSD L foot 2. Patient instructed to minimize weightbearing activity. Partial WB L heel with surgical shoe. 3. IV abx per ID 4. Upon discharge, will f/u with me 10/19/17 in wound healing center. [phone] Jimmie Alvarado DPM
--- NOTE | 2017-10-12 15:37 | PN ---
Progress Note, Physician History of Present Illness: operative results discussed with podiatry patient doing well - Current Medication List Current Medications: Active Medications Diltiazem HCl (Cardizem Cd -) 120 mg PO DAILY [facility] Last Admin: 10/12/17 09:41 Dose: 120 mg Docusate Sodium (Colace -) 100 mg PO TID [facility] Last Admin: 10/12/17 14:26 Dose: 100 mg Ampicillin Sodium/Sulbactam (Sodium 3 gm/ Sodium Chloride) 100 mls @ 200 mls/ hr IVPB Q6H-IV [facility] Last Admin: 10/12/17 14:26 Dose: 200 mls/hr Insulin Aspart (Novolog Vial Sliding Scale -) 1 vial SQ [facility]; Protocol Last Admin: 10/12/17 11:32 Dose: 4 units Insulin Detemir (Levemir Vial) 5 units SQ [facility] Last Admin: 10/11/17 21:43 Dose: 5 units Metformin HCl (Glucophage -) 1,000 mg PO BID@0700,1630 [facility] Last Admin: 10/12/17 06:26 Dose: 1,000 mg Oxycodone HCl (Roxicodone -) 5 mg PO Q4H PRN PRN Reason: PAIN LEVEL 4-6 Last Admin: 10/06/17 17:27 Dose: 5 mg Senna (Senna -) 2 tab PO HS PRN PRN Reason: CONSTIPATION Warfarin Sodium (Coumadin -) 5 mg PO DAILY@1800 [facility] Last Admin: 10/11/17 17:04 Dose: 5 mg - Objective Vital Signs: Vital Signs Temperature 98.1 F 10/12/17 10:00 Pulse Rate 100 H 10/12/17 10:00 Respiratory Rate 20 10/12/17 10:00 Blood Pressure 109/62 10/12/17 10:00 O2 Sat by Pulse Oximetry (%) 95 10/12/17 09:00 Constitutional: Yes: No Distress, Calm Cardiovascular: Yes: Regular Rate and Rhythm Respiratory: Yes: Regular, CTA Bilaterally Gastrointestinal: Yes: Normal Bowel Sounds, Soft Musculoskeletal: Yes: WNL Extremities: Yes: Other Wound/Incision: Yes: Dressing Dry and Intact Neurological: Yes: Alert, Oriented Psychiatric: Yes: Alert, Oriented Labs: CBC, BMP 10/12/17 07:30 10/12/17 07:30 INR, PTT INR 2.51 (0.82-1.09) H 10/12/17 07:30 Assessment/Plan Problem List - Problems (1) Diabetic foot infection Code(s): E11.628 - TYPE 2 DIABETES MELLITUS WITH OTHER SKIN COMPLICATIONS; L08.9 - LOCAL INFECTION OF THE SKIN AND SUBCUTANEOUS TISSUE, UNSP (2) Afib Code(s): I48.91 - UNSPECIFIED ATRIAL FIBRILLATION Qualifiers: Atrial fibrillation type: persistent Qualified Code(s): I48.1 - Persistent atrial fibrillation (3) Cellulitis Code(s): L03.90 - CELLULITIS, UNSPECIFIED Qualifiers: Site of cellulitis: extremity Site of cellulitis of extremity: toe Laterality: left Qualified Code(s): L03.032 - Cellulitis of left toe (4) HTN (hypertension) Code(s): I10 - ESSENTIAL (PRIMARY) HYPERTENSION Qualifiers: Hypertension type: essential hypertension Qualified Code(s): I10 - Essential (primary) hypertension (5) Wound infection Code(s): T14.8XXA - OTHER INJURY OF UNSPECIFIED BODY REGION, INITIAL ENCOUNTER; L08.9 - LOCAL INFECTION OF THE SKIN AND SUBCUTANEOUS TISSUE, UNSP (6) Wound, open, foot Code(s): S91.309A - UNSPECIFIED OPEN WOUND, UNSPECIFIED FOOT, INITIAL ENCOUNTER Qualifiers: Encounter type: initial encounter Laterality: left Qualified Code(s): S91.302A - Unspecified open wound, left foot, initial encounter Assessment/Plan continue current mgmt continue current abx patient will need it for 4 more weeks will need wound care rest as per the team
--- NOTE | 2017-10-12 16:58 | PATH ---
Surgical Pathology Report Patient Name: REBECCA BRADLEY Med. Rec. #: [id number] /Age/Gender: 1965 (Age: 52) / M Account: [id number] Location: [address] [place] [address]/[facility] Taken: 10/05/2017 Received: 10/07/2017 Reported: 10/12/2017 Physicians: MARGIE Alexander M.D. Specimen(s) Received LEFT FOOT BONE Clinical History Left diabetic foot infection Final Diagnosis BONE, FOOT, METATARSAL HEAD, LEFT, RESECTION: BONE WITH TRILINEAGE HEMATOPOIESIS. BENIGN DENSE FIBROCONNECTIVE TISSUE. NO FEATURES OF ACUTE OSTEOMYELITIS IDENTIFIED. Comment: Findings discussed with Penny Worthington (JULIO). Electronically Signed Claudia Montero M.D. Gross Description Received in formalin labeled "left foot bone," is a 2.4 x 1.5 x 1.2 cm lou-yellow portion of bone. A full face section is submitted in one cassette, following decalcification. /10/07/2017 [facility]10/07/2017
[2017-10-12] MEDS: WARFARIN NA 5 MG TABLET (UD) PO SCH (18:02)
[2017-10-12] MEDS: INSULIN (LEVEMIR) 100 UNITS/ML UNITS SQ SCH (21:11)
[2017-10-13] MEDS: AMPICILLIN NA/SULBACTAM NA 3 GM in SODIUM CHLORIDE 100 ML IVPB SCH ×2 (03:32→09:17)
[2017-10-13 05:58] VITALS: BP 103/62; PULSE 90; TEMP 97.8
[2017-10-13] MEDS: INSULIN SLIDING SCALE (NOVOLOG) 1 VIAL SQ SCH ×2 (06:06→11:55)
[2017-10-13] MEDS: DOCUSATE SODIUM 100 MG CAPSULE (FP) PO SCH ×2 (06:15→14:18)
[2017-10-13] MEDS: metFORMIN HCL 500 MG TABLET (FP) PO SCH (06:15)
[2017-10-13] MEDS ORDERED: PT OWN MED DRAWER 7, Y5N ONE (09:16)
--- NOTE | 2017-10-13 09:32 | DS ---
Physical Exam: SUBJECTIVE: Patient seen and examined OBJECTIVE: Vital Signs Period Temp Pulse Resp BP Sys/Griffith Pulse Ox Last 24 Hr 97.8 F-98.6 F 80-100 20-20 103-136/62-70 98 PHYSICAL EXAM GENERAL: The patient is awake, alert, and fully oriented, in no acute distress. LUNGS: Breath sounds equal, clear to auscultation bilaterally, no wheezes, no crackles, no accessory muscle use. HEART: Regular rate and rhythm, S1, S2 ABDOMEN: Soft, nontender, nondistended EXTREMITIES: wound wrapped, not visualized; dressing c/d/i NEUROLOGICAL: Cranial nerves II through XII grossly intact. LABS CBCD WBC 5.5 K/mm3 (4.0-10.0) 10/12/17 07:30 RBC 3.91 M/mm3 (4.00-5.60) L 10/12/17 07:30 Hgb 12.1 GM/dL (11.7-16.9) 10/12/17 07:30 Hct 34.5 % (35.4-49) L 10/12/17 07:30 MCV 88.4 fl (80-96) 10/12/17 07:30 MCHC 35.1 g/dl (32.0-35.9) 10/12/17 07:30 RDW 14.0 % (11.9-15.9) 10/12/17 07:30 Plt Count 181 K/MM3 (134-434) 10/12/17 07:30 MPV 9.6 fl (7.5-11.1) 10/12/17 07:30 CMP Sodium 139 mmol/L (136-145) 10/12/17 07:30 Potassium 3.9 mmol/L (3.5-5.1) 10/12/17 07:30 Chloride 105 mmol/L (98-107) 10/12/17 07:30 Carbon Dioxide 27 mmol/L (21-32) 10/12/17 07:30 Anion Gap 7 (8-16) L 10/12/17 07:30 BUN 15 mg/dL (7-18) 10/12/17 07:30 Creatinine 0.8 mg/dL (0.7-1.3) 10/12/17 07:30 Creat Clearance w eGFR > 60 (>60) 10/12/17 07:30 Calcium 9.0 mg/dL (8.5-10.1) 10/12/17 07:30 Total Bilirubin 0.4 mg/dL (0.2-1.0) 10/12/17 07:30 AST 25 U/L (15-37) D 10/12/17 07:30 ALT 55 U/L (12-78) D 10/12/17 07:30 Alkaline Phosphatase 100 U/L (45-117) D 10/12/17 07:30 Total Protein 7.4 g/dl (6.4-8.2) 10/12/17 07:30 Albumin 3.6 g/dl (3.4-5.0) 10/12/17 07:30 HOSPITAL COURSE: Date of Admission:09/30/17 Date of Discharge: 10/13/17 52 year-old male with a PMH significant for atrial fibrillation (on coumadin), and poorly controlled IDDM with a h/o multiple amputations of left foot. Cellulitis of left first and third toe metatarsal heads --s/p debridement with metatarsal head resection on 10/05/17 --surgical pathology NEGATIVE FOR OSTEO per Dr. Valdes; bone culture negative --tissue cultures: +staph, +strep, +proteus, +enterococcus --was on empiric zosyn 09/30-10/09 --on Unasyn x 3 days --PICC line; has received 12 days of IV therapy, will require 23 more days Transaminitis, resolved --minimally elevated initially, returned to wnl after Tylenol was dc'd Atrial fibrillation --rate well-controlled, continue diltiazem --INR 2.28-->2.51; therapeutic for 24 hours; stopped lovenox IDDM --A1c 8.8 --metformin was restarted --continue Levemir, Novolog sliding scale coverage Minutes to complete discharge: 35 Discharge Summary Reason For Visit: DIABETIC FOOT INFECTION Current Active Problems Amputated toe of left foot (Acute) Chronic anticoagulation (Acute) Diabetic foot infection (Acute) Condition: Improved - Instructions Diet, Activity, Other Instructions: Arrangements have been made for you to receive outpatient antibiotic therapy at the infusion center at [facility] tomorrow, October 14, 2017. You will be told where and what time to come. You should also follow up with Dr. Alvarado at the Wound Center. Referrals: Cristi Alvarado MD [Staff Physician] - Disposition: HOME - Home Medications Comprehensive Discharge Medication List: Ambulatory Orders Glipizide 5 mg PO DAILY #30 tablet 07/19/17 Metformin HCl [Glucophage] 1,000 mg PO BID #60 tablet 07/19/17 Warfarin Sodium [Coumadin] 5 mg PO DAILY 09/30/17 This patient is new to me today: No Emergency Visit: Yes ED Registration Date: 09/30/17 Care time: The patient presented to the Emergency Department on the above date and was hospitalized for further evaluation of their emergent condition. Critical Care patient: No - Discharge Referral Referred to [facility] No Physician Referral: Bryn Mosher MD ([facility])
[2017-10-13] MEDS ORDERED: PICC LINE 8 ML FLUSH PROTOCOL IVPUSH PRN (10:00)
--- NOTE | 2017-10-13 10:10 | PN ---
Physical Exam: SUBJECTIVE: Patient seen and examined OBJECTIVE: Vital Signs Period Temp Pulse Resp BP Sys/Griffith Pulse Ox Last 24 Hr 97.8 F-98.6 F 80-90 20-20 103-136/62-70 98 GENERAL: The patient is awake, alert, and fully oriented, in no acute distress. LUNGS: Breath sounds equal, clear to auscultation bilaterally, no wheezes, no crackles, no accessory muscle use. HEART: Regular rate and rhythm, S1, S2 ABDOMEN: Soft, nontender, nondistended EXTREMITIES: wound wrapped, not visualized; dressing c/d/i NEUROLOGICAL: Cranial nerves II through XII grossly intact. Laboratory Results - last 24 hr 10/12/17 10/12/17 10/12/17 11:00 15:26 21:10 POC Glucometer 156 186 114 10/13/17 05:49 POC Glucometer 101 Active Medications Generic Name Dose Route Start Last Admin Trade Name Freq PRN Reason Stop Dose Admin Diltiazem HCl 120 mg 10/07/17 10:00 10/13/17 09:17 Cardizem Cd - PO 120 mg DAILY [facility] Administration Docusate Sodium 100 mg 10/06/17 22:00 10/13/17 06:15 Colace - PO 100 mg TID [facility] Administration IV Flush 8 ml 10/13/17 10:00 Picc Line Flush IVPUSH PRN PRN Protocol Ampicillin Sodium/Sulbactam 100 mls @ 200 mls/hr 10/09/17 15:00 10/13/17 09: 17 Sodium 3 gm/ Sodium Chloride IVPB 200 mls/hr Q6H-IV [facility] Administration Insulin Aspart 1 vial 10/07/17 15:34 10/13/17 06:06 Novolog Vial Sliding Scale - SQ Not Given ACHS [facility] Protocol Insulin Detemir 5 units 10/08/17 22:00 10/12/17 21:11 Levemir Vial SQ 5 units HS [facility] Administration Metformin HCl 1,000 mg 10/09/17 16:30 10/13/17 06:15 Glucophage - PO 1,000 mg BID@0700,1630 [facility] Administration Oxycodone HCl 5 mg 10/05/17 16:20 10/06/17 17:27 Roxicodone - PO 5 mg Q4H PRN Administration PAIN LEVEL 4-6 Senna 2 tab 10/06/17 14:16 Senna - PO HS PRN CONSTIPATION Warfarin Sodium 5 mg 10/09/17 18:00 10/12/17 18:02 Coumadin - PO 5 mg DAILY@1800 [facility] Administration ASSESSMENT/PLAN: 52 year-old male with a PMH significant for atrial fibrillation (on coumadin), and poorly controlled IDDM with a h/o multiple amputations of left foot. Cellulitis of left first and third toe metatarsal heads --s/p debridement with metatarsal head resection on 10/05/17 --surgical pathology NEGATIVE FOR OSTEO per Dr. Valdes --was on empiric zosyn 09/30-10/09; cultures +staph, +strep, +proteus, + enterococcus --on Unasyn x 3 days --PICC line; has received 12 days of IV therapy, will require 23 more days Transaminitis, resolved --minimally elevated initially, returned to wnl after Tylenol was dc'd Atrial fibrillation --rate well-controlled, continue diltiazem --INR 2.28-->2.51; therapeutic for 24 hours; stopped lovenox IDDM --A1c 8.8 --metformin was restarted --continue Levemir, Novolog sliding scale coverage Visit type - Emergency Visit Emergency Visit: Yes ED Registration Date: 09/30/17 Care time: The patient presented to the Emergency Department on the above date and was hospitalized for further evaluation of their emergent condition. - New Patient This patient is new to me today: No - Critical Care Critical Care patient: No
--- NOTE | 2017-10-13 13:19 | PN ---
Progress Note, Physician History of Present Illness: operative results discussed with podiatry patient doing well - Current Medication List Current Medications: Active Medications Diltiazem HCl (Cardizem Cd -) 120 mg PO DAILY [facility] Last Admin: 10/13/17 09:17 Dose: 120 mg Docusate Sodium (Colace -) 100 mg PO TID [facility] Last Admin: 10/13/17 06:15 Dose: 100 mg IV Flush (Picc Line Flush) 8 ml IVPUSH PRN PRN PRN Reason: Protocol Ampicillin Sodium/Sulbactam (Sodium 3 gm/ Sodium Chloride) 100 mls @ 200 mls/ hr IVPB Q6H-IV [facility] Last Admin: 10/13/17 09:17 Dose: 200 mls/hr Insulin Aspart (Novolog Vial Sliding Scale -) 1 vial SQ ACHS [facility]; Protocol Last Admin: 10/13/17 11:55 Dose: Not Given Insulin Detemir (Levemir Vial) 5 units SQ HS [facility] Last Admin: 10/12/17 21:11 Dose: 5 units Metformin HCl (Glucophage -) 1,000 mg PO BID@0700,1630 [facility] Last Admin: 10/13/17 06:15 Dose: 1,000 mg Senna (Senna -) 2 tab PO HS PRN PRN Reason: CONSTIPATION Warfarin Sodium (Coumadin -) 5 mg PO DAILY@1800 [facility] Last Admin: 10/12/17 18:02 Dose: 5 mg - Objective Vital Signs: Vital Signs Temperature 97.8 F 10/13/17 05:57 Pulse Rate 90 10/13/17 05:57 Respiratory Rate 20 10/13/17 05:57 Blood Pressure 103/62 10/13/17 05:57 O2 Sat by Pulse Oximetry (%) 98 10/12/17 20:02 Constitutional: Yes: No Distress, Calm Cardiovascular: Yes: Regular Rate and Rhythm Respiratory: Yes: Regular, CTA Bilaterally Gastrointestinal: Yes: Normal Bowel Sounds, Soft Extremities: Yes: Other Wound/Incision: Yes: Dressing Dry and Intact Neurological: Yes: Alert, Oriented Psychiatric: Yes: Alert, Oriented Labs: CBC, BMP 10/12/17 07:30 10/12/17 07:30 INR, PTT INR 2.51 (0.82-1.09) H 10/12/17 07:30 Assessment/Plan Problem List - Problems (1) Diabetic foot infection Code(s): E11.628 - TYPE 2 DIABETES MELLITUS WITH OTHER SKIN COMPLICATIONS; L08.9 - LOCAL INFECTION OF THE SKIN AND SUBCUTANEOUS TISSUE, UNSP (2) Afib Code(s): I48.91 - UNSPECIFIED ATRIAL FIBRILLATION Qualifiers: Atrial fibrillation type: persistent Qualified Code(s): I48.1 - Persistent atrial fibrillation (3) Cellulitis Code(s): L03.90 - CELLULITIS, UNSPECIFIED Qualifiers: Site of cellulitis: extremity Site of cellulitis of extremity: toe Laterality: left Qualified Code(s): L03.032 - Cellulitis of left toe (4) HTN (hypertension) Code(s): I10 - ESSENTIAL (PRIMARY) HYPERTENSION Qualifiers: Hypertension type: essential hypertension Qualified Code(s): I10 - Essential (primary) hypertension (5) Wound infection Code(s): T14.8XXA - OTHER INJURY OF UNSPECIFIED BODY REGION, INITIAL ENCOUNTER; L08.9 - LOCAL INFECTION OF THE SKIN AND SUBCUTANEOUS TISSUE, UNSP (6) Wound, open, foot Code(s): S91.309A - UNSPECIFIED OPEN WOUND, UNSPECIFIED FOOT, INITIAL ENCOUNTER Qualifiers: Encounter type: initial encounter Laterality: left Qualified Code(s): S91.302A - Unspecified open wound, left foot, initial encounter Assessment/Plan continue current mgmt continue current abx patient will need it for 4 more weeks will need wound care rest as per the team follow podiatry
[2017-10-21 12:53] LABS: HEMATOCRIT 35.9 % (35.4-49); HEMOGLOBIN 12.5 GM/dL (11.7-16.9); MCH 30.9 pg (25.7-33.7); MCHC 34.9 g/dl (32.0-35.9); MEAN CELL VOLUME 88.6 fl (80-96); MEAN PLT VOLUME 9.2 fl (7.5-11.1); PLATELET COUNT 208 K/MM3 (134-434); RBC 4.06 M/mm3 (4.00-5.60); WHITE BLOOD COUNT 5.3 K/mm3 (4.0-10.0)
[2017-10-21 13:51] LABS: ALBUMIN 3.7 g/dl (3.4-5.0); ANION GAP 6 (8-16); BLOOD UREA NITROGEN 16 mg/dL (7-18); CALCIUM 8.6 mg/dL (8.5-10.1); CHLORIDE 103 mmol/L (98-107); CO2 27 mmol/L (21-32); CREATININE 1.2 mg/dL (0.7-1.3); GLUCOSE,RANDOM 282 mg/dL (74-106); POTASSIUM 4.7 mmol/L (3.5-5.1); SGOT/AST 17 U/L (15-37); SGPT/ALT 29 U/L (12-78); SODIUM 136 mmol/L (136-145)
[2017-10-21 13:53] LABS: ALK PHOS 120 U/L (45-117); BILIRUBIN,TOTAL 0.3 mg/dL (0.2-1.0); TOT PROT 7.3 g/dl (6.4-8.2)
== END 2017-10-13 14:52 | disposition home or self-care (01) | DRG 314 ==
LOC: JER 09:12 → JERBED 11:33 → J6S 17:55
PROVIDERS: ADMIT Internal Medicine; ATTEND Nurse Practitioner Acute Care
PROC: 0QBP0ZX Excision of Left Metatarsal, Open Approach, Diagnostic (ICD-10-PCS; 2017-10-05)
PROC: 3E10X8Z Irrigation of Skin and Mucous Membranes using Irrigating Substance (ICD-10-PCS; 2017-10-05)
PROC: 02HV33Z Insertion of Infusion Device into Superior Vena Cava, Percutaneous Approach (ICD-10-PCS; 2017-10-05)
PROC: 0JBR0ZZ Excision of Left Foot Subcutaneous Tissue and Fascia, Open Approach (ICD-10-PCS; principal; 2017-10-05 14:00)
PROC: 0QTP0ZZ Resection of Left Metatarsal, Open Approach (ICD-10-PCS; 2017-10-05 14:00)
DX: E11.628 Type 2 diabetes mellitus with other skin complications (principal); E11.621 Type 2 diabetes mellitus with foot ulcer; L03.032 Cellulitis of left toe; M86.672 Other chronic osteomyelitis, left ankle and foot; L08.9 Local infection of the skin and subcutaneous tissue, unspecified; E11.69 Type 2 diabetes mellitus with other specified complication; L97.528 Non-pressure chronic ulcer of other part of left foot with other specified severity; I48.1 Persistent atrial fibrillation; S91.302A Unspecified open wound, left foot, initial encounter; I10 Essential (primary) hypertension; R74.0 Nonspecific elevation of levels of transaminase and lactic acid dehydrogenase [LDH]; Z79.01 Long term (current) use of anticoagulants; Z89.422 Acquired absence of other left toe(s); Z79.4 Long term (current) use of insulin
CPT/HCPCS: 36415; 36430; 36569; 71045-TC-FY; 73610-TC-LT-FY; 73630-TC-LT; 73718-LT; 80048; 80053; 82962; 83605; 83735; 84484; 85025; 85027; 85610; 85651; 85730; 86140; 86850; 86900; 86901; 87040; 87070; 87075; 87076; 87077; 87186; 87205; 88305-TC; 88311-TC; 90670; 93005; 93010; 93971-TC; 94010; 94760; 97116-GP; 97161-GP; 99283-25; J7030; P9017

== ENCOUNTER 2017-10-15 10:09 | Day surgery (SDC) | payer OTHER ==
[2017-10-15 10:55] VITALS: BP 100/57; PULSE 84; TEMP 98.2
== END 2017-10-15 12:31 | disposition home or self-care (01) ==
LOC: JINFUSION 10:09
PROVIDERS: ATTEND Internal Medicine Infectious Disease
DX: E11.621 Type 2 diabetes mellitus with foot ulcer (principal); M86.672 Other chronic osteomyelitis, left ankle and foot; L97.528 Non-pressure chronic ulcer of other part of left foot with other specified severity; L03.032 Cellulitis of left toe; Z79.4 Long term (current) use of insulin
CPT/HCPCS: 96365; 96366

== ENCOUNTER 2017-10-16 09:44 | Day surgery (SDC) | payer OTHER ==
[2017-10-16 12:06] VITALS: BP 117/68; PULSE 93; TEMP 98.2
== END 2017-10-16 13:39 | disposition home or self-care (01) ==
LOC: JINFUSION 09:44 → J7W 09:45 → JINFUSION 13:39
PROVIDERS: ATTEND Internal Medicine Infectious Disease
DX: E11.621 Type 2 diabetes mellitus with foot ulcer (principal); M86.672 Other chronic osteomyelitis, left ankle and foot; L97.528 Non-pressure chronic ulcer of other part of left foot with other specified severity; L03.032 Cellulitis of left toe; Z79.4 Long term (current) use of insulin
CPT/HCPCS: 96365; 96366

== ENCOUNTER 2017-10-17 09:37 | Day surgery (SDC) | payer OTHER ==
[2017-10-17 10:11] VITALS: TEMP 97.8
[2017-10-17 12:57] VITALS: BP 114/70; PULSE 92
== END 2017-10-17 13:00 | disposition home or self-care (01) ==
LOC: JINFUSION 09:37 → J7W 09:38 → JINFUSION 13:00
PROVIDERS: ATTEND Internal Medicine Infectious Disease
DX: E11.621 Type 2 diabetes mellitus with foot ulcer (principal); M86.672 Other chronic osteomyelitis, left ankle and foot; L97.528 Non-pressure chronic ulcer of other part of left foot with other specified severity; L03.032 Cellulitis of left toe; Z79.4 Long term (current) use of insulin
CPT/HCPCS: 96365; 96366

== ENCOUNTER 2017-10-20 12:37 | Day surgery (SDC) | payer OTHER ==
[2017-10-20 13:26] VITALS: TEMP 98.4
[2017-10-20 15:16] VITALS: BP 103/65; PULSE 94
== END 2017-10-20 15:10 | disposition home or self-care (01) ==
LOC: JINFUSION 12:37
PROVIDERS: ATTEND Internal Medicine Infectious Disease
DX: E11.621 Type 2 diabetes mellitus with foot ulcer (principal); M86.672 Other chronic osteomyelitis, left ankle and foot; L97.528 Non-pressure chronic ulcer of other part of left foot with other specified severity; L03.032 Cellulitis of left toe; Z79.4 Long term (current) use of insulin
CPT/HCPCS: 96365; 96366

== ENCOUNTER 2017-10-21 12:26 | Day surgery (SDC) | payer OTHER ==
[2017-10-21 14:24] VITALS: TEMP 98.2
[2017-10-21 15:40] VITALS: BP 112/67; PULSE 91
== END 2017-10-21 15:30 | disposition home or self-care (01) ==
LOC: JINFUSION 12:26
PROVIDERS: ATTEND Internal Medicine Infectious Disease
DX: E11.621 Type 2 diabetes mellitus with foot ulcer (principal); M86.672 Other chronic osteomyelitis, left ankle and foot; L97.528 Non-pressure chronic ulcer of other part of left foot with other specified severity; L03.032 Cellulitis of left toe; Z79.4 Long term (current) use of insulin
CPT/HCPCS: 96365; 96366

== ENCOUNTER 2017-10-22 11:44 | Day surgery (SDC) | payer OTHER ==
[2017-10-22 15:37] VITALS: TEMP 98.2
[2017-10-22 15:39] VITALS: BP 95/63; PULSE 108
== END 2017-10-22 13:45 | disposition home or self-care (01) ==
LOC: JINFUSION 11:44
PROVIDERS: ATTEND Internal Medicine Infectious Disease
DX: E11.621 Type 2 diabetes mellitus with foot ulcer (principal); M86.672 Other chronic osteomyelitis, left ankle and foot; L97.528 Non-pressure chronic ulcer of other part of left foot with other specified severity; L03.032 Cellulitis of left toe; Z79.4 Long term (current) use of insulin
CPT/HCPCS: 96365; 96366

== ENCOUNTER 2017-10-23 08:38 | Day surgery (SDC) | payer OTHER ==
[2017-10-23 11:12] VITALS: BP 101/71; PULSE 98; TEMP 97.7
== END 2017-10-23 11:14 | disposition home or self-care (01) ==
LOC: JINFUSION 08:38 → J7W 08:38 → JSAMEDAYSX 08:39 → JINFUSION 11:14
PROVIDERS: ATTEND Internal Medicine Infectious Disease
DX: E11.621 Type 2 diabetes mellitus with foot ulcer (principal); M86.672 Other chronic osteomyelitis, left ankle and foot; L97.528 Non-pressure chronic ulcer of other part of left foot with other specified severity; L03.032 Cellulitis of left toe; Z79.4 Long term (current) use of insulin
CPT/HCPCS: 96365; 96366

== ENCOUNTER 2017-10-24 08:56 | Day surgery (SDC) | payer OTHER ==
[2017-10-24 11:10] VITALS: BP 106/75; PULSE 87; TEMP 97.8
== END 2017-10-24 11:09 | disposition home or self-care (01) ==
LOC: JINFUSION 08:56 → J7W 08:57 → JINFUSION 11:09
PROVIDERS: ATTEND Internal Medicine Infectious Disease
DX: E11.621 Type 2 diabetes mellitus with foot ulcer (principal); M86.672 Other chronic osteomyelitis, left ankle and foot; L97.528 Non-pressure chronic ulcer of other part of left foot with other specified severity; L03.032 Cellulitis of left toe; Z79.4 Long term (current) use of insulin
CPT/HCPCS: 96365; 96366

== ENCOUNTER 2017-10-25 11:16 | Day surgery (SDC) | payer OTHER ==
[2017-10-25 13:24] VITALS: BP 121/74; PULSE 91; TEMP 98.1
== END 2017-10-25 13:20 | disposition home or self-care (01) ==
LOC: JINFUSION 11:16
PROVIDERS: ATTEND Internal Medicine Infectious Disease
DX: E11.621 Type 2 diabetes mellitus with foot ulcer (principal); M86.672 Other chronic osteomyelitis, left ankle and foot; L97.528 Non-pressure chronic ulcer of other part of left foot with other specified severity; L03.032 Cellulitis of left toe; Z79.4 Long term (current) use of insulin; I10 Essential (primary) hypertension; I48.91 Unspecified atrial fibrillation; Z79.1 Long term (current) use of non-steroidal anti-inflammatories (NSAID)
CPT/HCPCS: 96365; 96366

== ENCOUNTER 2017-10-27 10:40 | Day surgery (SDC) | payer OTHER ==
[2017-10-27 11:36] VITALS: TEMP 98.3
[2017-10-27 13:10] VITALS: BP 103/66; PULSE 99
== END 2017-10-27 13:10 | disposition home or self-care (01) ==
LOC: JINFUSION 10:40
PROVIDERS: ATTEND Internal Medicine Infectious Disease
DX: L03.032 Cellulitis of left toe (principal); I10 Essential (primary) hypertension; I48.91 Unspecified atrial fibrillation; Z79.01 Long term (current) use of anticoagulants
CPT/HCPCS: 96365; 96366

== ENCOUNTER 2017-10-28 10:57 | Day surgery (SDC) | payer OTHER ==
[~2017-10-28 10:57] MED LIST changes: +DEXTROSE 5% IV ONE; +LEVOFLOXACIN IV ONE; -VANCOMYCIN 2,000 MG in SODIUM CHLORIDE 500 ML IVPB ONE; +WATER IV ONE
[2017-10-28 11:27] LABS: HEMATOCRIT 37.2 % (35.4-49); HEMOGLOBIN 12.9 GM/dL (11.7-16.9); MCH 30.7 pg (25.7-33.7); MCHC 34.7 g/dl (32.0-35.9); MEAN CELL VOLUME 88.7 fl (80-96); MEAN PLT VOLUME 10.1 fl (7.5-11.1); PLATELET COUNT 174 K/MM3 (134-434); RDW 13.6 % (11.9-15.9); WHITE BLOOD COUNT 7.4 K/mm3 (4.0-10.0)
[2017-10-28 11:59] VITALS: TEMP 97.9
[2017-10-28 12:04] LABS: ALBUMIN 3.9 g/dl (3.4-5.0); ANION GAP 7 (8-16); BILIRUBIN,TOTAL 0.5 mg/dL (0.2-1.0); BLOOD UREA NITROGEN 20 mg/dL (7-18); CALCIUM 8.5 mg/dL (8.5-10.1); CHLORIDE 106 mmol/L (98-107); CO2 26 mmol/L (21-32); CREATININE 1.3 mg/dL (0.7-1.3); GLUCOSE,RANDOM 228 mg/dL (74-106); POTASSIUM 4.7 mmol/L (3.5-5.1); SGOT/AST 14 U/L (15-37); SGPT/ALT 23 U/L (12-78); SODIUM 139 mmol/L (136-145); TOT PROT 7.5 g/dl (6.4-8.2)
[2017-10-28 12:05] LABS: ALK PHOS 121 U/L (45-117)
[2017-10-28 15:11] VITALS: BP 98/64; PULSE 96
== END 2017-10-28 13:45 | disposition home or self-care (01) ==
LOC: JINFUSION 10:57
PROVIDERS: ATTEND Internal Medicine Infectious Disease
DX: E11.621 Type 2 diabetes mellitus with foot ulcer (principal); M86.672 Other chronic osteomyelitis, left ankle and foot; L97.528 Non-pressure chronic ulcer of other part of left foot with other specified severity; L03.032 Cellulitis of left toe; I10 Essential (primary) hypertension; I48.91 Unspecified atrial fibrillation; Z79.01 Long term (current) use of anticoagulants
CPT/HCPCS: 36415; 80053; 85027; 96365; 96366

== ENCOUNTER 2017-10-29 10:38 | Day surgery (SDC) | payer OTHER ==
[2017-10-29 12:37] VITALS: TEMP 97.8
[2017-10-29 13:35] VITALS: BP 109/76; PULSE 82
== END 2017-10-29 13:36 | disposition home or self-care (01) ==
LOC: JINFUSION 10:38
PROVIDERS: ATTEND Internal Medicine Infectious Disease
DX: E11.621 Type 2 diabetes mellitus with foot ulcer (principal); M86.672 Other chronic osteomyelitis, left ankle and foot; L97.528 Non-pressure chronic ulcer of other part of left foot with other specified severity; L03.032 Cellulitis of left toe; I10 Essential (primary) hypertension; I48.91 Unspecified atrial fibrillation; Z79.01 Long term (current) use of anticoagulants
CPT/HCPCS: 96365; 96366

== ENCOUNTER 2017-10-30 09:11 | Day surgery (SDC) | payer OTHER ==
[2017-10-30 11:54] VITALS: BP 99/70; PULSE 91; TEMP 98.1
== END 2017-10-30 13:27 | disposition home or self-care (01) ==
LOC: JINFUSION 09:11 → J7W 09:14 → JINFUSION 13:27
PROVIDERS: ATTEND Internal Medicine Infectious Disease
DX: E11.621 Type 2 diabetes mellitus with foot ulcer (principal); M86.672 Other chronic osteomyelitis, left ankle and foot; L97.528 Non-pressure chronic ulcer of other part of left foot with other specified severity; L03.032 Cellulitis of left toe; I10 Essential (primary) hypertension; Z79.01 Long term (current) use of anticoagulants
CPT/HCPCS: 96365; 96366

== ENCOUNTER 2017-10-31 08:33 | Day surgery (SDC) | payer OTHER ==
[2017-10-31 09:12] VITALS: TEMP 98.6
[2017-10-31 12:45] VITALS: BP 101/54; PULSE 85
== END 2017-10-31 10:50 | disposition home or self-care (01) ==
LOC: J7W 08:33 → JINFUSION 08:33
PROVIDERS: ATTEND Internal Medicine Infectious Disease
DX: E11.621 Type 2 diabetes mellitus with foot ulcer (principal); M86.672 Other chronic osteomyelitis, left ankle and foot; L97.528 Non-pressure chronic ulcer of other part of left foot with other specified severity; L03.032 Cellulitis of left toe; I10 Essential (primary) hypertension; I48.91 Unspecified atrial fibrillation; Z79.01 Long term (current) use of anticoagulants
CPT/HCPCS: 96365; 96366

== ENCOUNTER 2017-11-01 10:11 | Day surgery (SDC) | payer OTHER ==
[2017-11-01 12:44] VITALS: BP 90/55; PULSE 102; TEMP 98.3
== END 2017-11-01 12:45 | disposition home or self-care (01) ==
LOC: JINFUSION 10:11
PROVIDERS: ATTEND Internal Medicine Infectious Disease
DX: E11.621 Type 2 diabetes mellitus with foot ulcer (principal); M86.672 Other chronic osteomyelitis, left ankle and foot; L97.528 Non-pressure chronic ulcer of other part of left foot with other specified severity; L03.032 Cellulitis of left toe; I10 Essential (primary) hypertension; I48.91 Unspecified atrial fibrillation; Z79.01 Long term (current) use of anticoagulants
CPT/HCPCS: 96365; 96366

== ENCOUNTER 2017-11-07 20:09 | Emergency (ER) | payer OTHER ==
[2017-11-07 20:20] VITALS: PULSE 118; TEMP 97.4; BMI 27.4
[2017-11-07 20:37] VITALS: BP 88/64
[2017-11-08] MEDS ORDERED: BACITRACIN 0.9 GM PACKET ONE (00:05)
--- NOTE | 2017-11-08 00:42 | PDOC ---
History of Present Illness - General Chief Complaint: Revisit,Wound Recheck Stated Complaint: WOUND Time Seen by Provider: 11/07/17 22:25 History Source: Patient Exam Limitations: Language Barrier - History of Present Illness Initial Comments: 11/08/17 00:34 Patient is a 52 year old male with PMHx of DM, HTN, afib (on coumadin) who presents to the ED with a left plantar foot wound. Patient states that the wound was I/D about a month ago. He finished his course of antibiotics this past and the wound closed. Today, he walked to his laundromat this morning without his crutches and felt the wound open and started bleeding. He states that the wound has a throbbing, nonradiating 6/10 pain. Denies taking any medication for the pain. Patient admits to a headache lasting about 1 week, along with blurry vision and dizziness. Patient denies fever chills, CP, SOB, N/V, lightheadedness. He denies discharge from him wound. His finger sticks have been well controlled and his last HbA1C was on 10/29/17 and was 6.9. He continue to follow with Dr. Alvarado and has an appointment in 3 weeks. History taken by [employer] swimmer services agent #[id number] Past History - Past Medical History Allergies/Adverse Reactions: Allergies Allergy/AdvReac Type Severity Reaction Status Date / Time No Known Allergies Allergy Verified 11/07/17 20:16 Home Medications: Ambulatory Orders Glipizide 5 mg PO DAILY #30 tablet 07/19/17 Metformin HCl [Glucophage] 1,000 mg PO BID #60 tablet 07/19/17 Warfarin Sodium [Coumadin] 5 mg PO DAILY 09/30/17 Diltiazem Cd [Cardizem Cd -] 120 mg PO DAILY #30 cap.cd.24h 10/13/17 Docusate Sodium [Colace -] 300 mg PO HS #30 capsule 10/13/17 Anemia: No Asthma: No Cancer: No Cardiac Disorders: Yes (Afib) CVA: No COPD: No DVT: No Dementia: No Diabetes: Yes Dialysis: No GI Disorders: No Disorders: No HTN: Yes Hypercholesterolemia: No Kidney Stones: No Liver Disease: No Psychiatric Problems: No Seizures: No Thyroid Disease: No Lung CA: No - Surgical History Abdominal Surgery: No Appendectomy: No Cardiac Surgery: No Cholecystectomy: No Lung Surgery: No Neurologic Surgery: No Orthopedic Surgery: Yes Other Surgical History: 11/08/17 01:18 Left partial great toe and 4th toe amputation - Suicide/Smoking/Psychosocial Hx Smoking History: Never smoked Have you smoked in the past 12 months: No Hx Alcohol Use: No Drug/Substance Use Hx: No Substance Use Type: None Hx Substance Use Treatment: No Review of Systems - Review of Systems Able to Perform ROS?: Yes Is the patient limited German proficient: Yes Constitutional: No: Symptoms Reported, See HPI, Chills, Diaphoresis, Fever, Loss of Appetite, Malaise, Night Sweats, Weakness, Weight Stable, Unintentional Wgt. Loss, Unexplained wgt Loss, Other HEENTM: Yes: Blurred Vision. No: Symptoms Reported, See HPI, Eye Pain, Tearing , Recent change in vision, Double Vision, Cataracts, Ear Pain, Ocular Prothesis , Ear Discharge, Nose Pain, Nose Congestion, Tinnitus, Nose Bleeding, Hearing Loss, Throat Pain, Throat Swelling, Mouth Pain, Dental Problems, Difficulty Swallowing, Mouth Swelling, Other Respiratory: No: Symptoms reported, See HPI, Cough, Orthopnea, Shortness of Breath, SOB with Exertion, SOB at Rest, Stridor, Wheezing, Productive cough, Hemoptysis, Other Cardiac (ROS): No: Symptoms Reported, See HPI, Chest Pain, Edema, Irregular Heart Rate, Lightheadedness, Palpitations, Syncope, Chest Tightness, Other ABD/GI: No: Symptoms Reported, See HPI, Abdominal Distended, Abd. Pain w/ defecation, Blood Streaked Bowels, Constipated, Diarrhea, Difficulty Swallowing , Nausea, Poor Appetite, Poor Fluid Intake, Rectal Bleeding, Vomiting, Indigestion, Abdominal cramping, Tarry Stools, Other : No: Symptoms Reported, See HPI, Burning, Dysuria, Discharge, Frequency, Flank Pain, Hematuria, Incontinence, Pain, Urgency, Testicular Mass, Testicular Swelling, Lesions, Testicular Pain, Other Musculoskeletal: No: Symptoms Reported, See HPI, Back Pain, Gout, Joint Pain, Joint Swelling, Muscle Pain, Muscle Weakness, Neck Pain, Joint Stiffness, Other Integumentary: Yes: See HPI Neurological: Yes: Headache, Dizziness Psychiatric: No: Anxiety, Depression, Frequent Crying, Stressors, Sleep Pattern Change, Emotional Problems, Mood Swings, Change in Appetite, Other Endocrine: No: Symptoms Reported, See HPI, Excessive Sweating, Flushing, Intolerance to Cold, Intolerance to Heat, Increased Hunger, Increased Thirst, Increased Urine, Unexplained Weight Gain, Unexplained Weight Loss, Change in Weight, Other Hematologic/Lymphatic: No: Symptoms Reported, See HPI, Anemia, Blood Clots, Easy Bleeding, Easy Bruising, Bleeding Diathesis, Lymph Node Abnormalities, Swollen Glands, Other *Physical Exam - Vital Signs Last Vital Signs Temp Pulse Resp BP Pulse Ox 97.4 F L 118 H 18 88/64 100 11/07/17 20:16 11/07/17 20:16 11/07/17 20:16 11/07/17 20:16 11/07/17 20:16 - Physical Exam General Appearance: Yes: Nourished, Appropriately Dressed. No: Apparent Distress Neck: positive: Supple Respiratory/Chest: positive: Lungs Clear Cardiovascular: positive: Irregularly Irregular Gastrointestinal/Abdominal: positive: Soft. negative: Tender Extremity: positive: Other (mild avulsed part of plantar surface of the foot measure 3pns5bn the puncture slit wound 1.5cmx0.25cm) Neurologic: positive: Fully Oriented, Alert Medical Decision Making - Medical Decision Making 11/08/17 01:24 52M with multiple medical problems presents to the ED with left foot pain after walking to the [facility] and the wound opened up. Wound redressed with bacitracin no evidence of infection or discharge Advised to follow up with Dr. Alvarado this wednesday and to schedule follow up with the clinic *DC/Admit/Observation/Transfer Diagnosis at time of Disposition: Diabetic foot ulcer Qualifiers: Diabetic foot ulcer location: midfoot Diabetes mellitus type: type 1 Laterality : left Non-pressure ulcer stage: unspecified non-pressure ulcer stage Qualified Code(s): E10.621 - Type 1 diabetes mellitus with foot ulcer Foot ulcer Qualifiers: Laterality: left Non-pressure ulcer stage: unspecified non-pressure ulcer stage Qualified Code(s): L97.529 - Non-pressure chronic ulcer of other part of left foot with unspecified severity Wound, open, foot Qualifiers: Encounter type: subsequent encounter Laterality: left Qualified Code(s): S91.302D - Unspecified open wound, left foot, subsequent encounter - Discharge Dispostion Disposition: HOME Condition at time of disposition: Fair Decision to Admit order: No - Referrals - Patient Instructions Printed Discharge Instructions: DI for Puncture Wound, DI for Wound Infection Additional Instructions: please go follow up with Dr. Alvarado this Wednesday. If you have foul smell or discharge from the foot or fever and chills go to the nearest emergency room. Follow up with your primary care doctor as soon as possible. continue your home medications as prescribed. It was a pleasure caring for you. - Post Discharge Activity
--- NOTE | 2017-11-08 02:00 | PDOC ---
Attending Attestation - Resident Resident Name: Troy Dunlap - ED Attending Attestation I have performed the following: I have examined & evaluated the patient, The case was reviewed & discussed with the resident, I agree w/resident's findings & plan, Exceptions are as noted - HPI HPI: 11/08/17 01:57 52-year-old male presents with left foot pain. Patient has a long-standing diabetic ulcer that has been treated with IV antibiotics up until . His PICC line was removed last week He is on Coumadin for his A. fib presents tonight because of bleeding from the wound and pain - Physicial Exam PE: 11/08/17 02:00 Well-nourished, well-developed 52-year-old male. Head normocephalic/atraumatic. Neck supple Lungs clear to auscultation. CVS irregularly irregular rhythm Soft, nontender. Extremities there is a wound on the sole of his left foot that has minor bleeding and there is a incision on the dorsal of his foot that is not bleeding. There is no evidence of cellulitis. Neurologically alert and oriented 3, moving all extremities and ambulatory psych appropriate - Medical Decision Making 11/08/17 02:02 Patient was just seen at the end of last week for his antibiotic infusion. PICC line was removed. The end of last week. The plan is for patient to be seen by wound care clinic on Wednesday. There is no active bleeding at this time and no evidence of cellulitis
== END 2017-11-08 01:15 | disposition home or self-care (01) ==
LOC: JER 20:09
DX: S91.302D Unspecified open wound, left foot, subsequent encounter (principal); L97.529 Non-pressure chronic ulcer of other part of left foot with unspecified severity; E10.621 Type 1 diabetes mellitus with foot ulcer
CPT/HCPCS: 99281-25

== ENCOUNTER 2017-11-10 12:59 | Emergency (ER) | payer OTHER ==
[2017-11-10 13:21] VITALS: BP 127/86; PULSE 65; TEMP 97.9; BMI 27.4
--- NOTE | 2017-11-10 15:02 | PDOC ---
History of Present Illness - General Chief Complaint: Blood Pressure Problem Stated Complaint: HYPOTENSION Time Seen by Provider: 11/10/17 15:01 History Source: Patient, Artist Representative Used (Citizen Of [place]) Exam Limitations: No Limitations - History of Present Illness Initial Comments: Pt, with PMH of HTN, Afib (on Coumadin), DM, and non-healing L plantar foot ulcer, presents to the ER complaining of headache and blurry vision x 2 weeks. The pt was referred from [facility] via EMS due to his blurred vision, hypotension (85/60) and headache. The pt had a recent I&D for his foot ulcer ( October 2017), and had a PICC line placed from 10/03-11/05. The pt was seen in the [facility] ER on 11/07, with complaints of bleeding from his L foot ulcer and headache, with negative examination. Today, the pt was given 1 L NS bolus on the ambulance, which he states improved his headache. He says the headache is constant, throbbing, and is in a band- like distribution around his head. It has occurred over the past 2 weeks, and is worse when he stands up in the morning to make his breakfast. The headache is associated with blurry vision and light-headedness. He has no history of migraines. His blood sugar runs between 130-150, and usually is highest at 180- 200. His last DM appointment with Dr. Alvarado was 10/29 (A1C 6.9), his last ophthomology apt was last year, and he has been taking his medications as prescribed. He denies any fevers/chills, syncope, falls or trauma to his head, chest pain, SOB, abdominal pain, urinary symptoms, diarrhea/constipation, or leg swelling. He has been tolerating PO food and fluid. 11/10/17 16:03 11/10/17 18:57 Past History - Travel Traveled outside of the country in the last 30 days: No Close contact w/someone who was outside of country & ill: No - Past Medical History Allergies/Adverse Reactions: Allergies Allergy/AdvReac Type Severity Reaction Status Date / Time No Known Allergies Allergy Verified 11/07/17 20:16 Home Medications: Ambulatory Orders Glipizide 5 mg PO DAILY #30 tablet 07/19/17 Metformin HCl [Glucophage] 1,000 mg PO BID #60 tablet 07/19/17 Warfarin Sodium [Coumadin] 5 mg PO DAILY 09/30/17 Diltiazem Cd [Cardizem Cd -] 120 mg PO DAILY #30 cap.cd.24h 10/13/17 Docusate Sodium [Colace -] 300 mg PO HS #30 capsule 10/13/17 Anemia: No Asthma: No Cancer: No Cardiac Disorders: Yes (Afib) CVA: No COPD: No DVT: No Dementia: No Diabetes: Yes Dialysis: No GI Disorders: No Disorders: No HTN: Yes Hypercholesterolemia: No Kidney Stones: No Liver Disease: No Psychiatric Problems: No Seizures: No Thyroid Disease: No Lung CA: No - Surgical History Abdominal Surgery: No Appendectomy: No Cardiac Surgery: No Cholecystectomy: No Lung Surgery: No Neurologic Surgery: No Orthopedic Surgery: Yes - Suicide/Smoking/Psychosocial Hx Smoking History: Never smoked Have you smoked in the past 12 months: No Information on smoking cessation initiated: No Hx Alcohol Use: No Drug/Substance Use Hx: No Substance Use Type: None Hx Substance Use Treatment: No Review of Systems - Review of Systems Able to Perform ROS?: Yes Is the patient limited Sierra Leonean proficient: No Constitutional: Yes: Weight Stable. No: Chills, Diaphoresis, Fever, Loss of Appetite, Weakness HEENTM: Yes: Blurred Vision. No: Recent change in vision, Double Vision, Cataracts, Hearing Loss, Throat Pain, Throat Swelling, Mouth Pain, Dental Problems, Difficulty Swallowing Respiratory: No: Cough, Orthopnea, Shortness of Breath, Productive cough Cardiac (ROS): Yes: Lightheadedness. No: Chest Pain, Edema, Irregular Heart Rate, Palpitations, Syncope, Chest Tightness ABD/GI: No: Abdominal Distended, Constipated, Diarrhea, Difficulty Swallowing, Nausea, Poor Appetite, Poor Fluid Intake, Vomiting : No: Burning, Dysuria, Frequency, Hematuria, Pain, Urgency Musculoskeletal: No: Back Pain, Joint Pain, Joint Swelling, Muscle Weakness Integumentary: No: Bruising, Dryness, Erythema, Pruritus, Rash Neurological: Yes: Headache, Dizziness. No: Numbness, Paresthesia, Seizure, Weakness, Unsteady Gait, Ataxia Psychiatric: No: Sleep Pattern Change, Change in Appetite Endocrine: No: Increased Thirst, Increased Urine, Change in Weight Hematologic/Lymphatic: No: Anemia, Blood Clots, Easy Bleeding, Easy Bruising All Other Systems: Reviewed and Negative *Physical Exam - Vital Signs Last Vital Signs Temp Pulse Resp BP Pulse Ox 97.9 F 65 16 127/86 100 11/10/17 13:00 11/10/17 13:00 11/10/17 13:00 11/10/17 13:00 11/10/17 13:00 - Physical Exam General Appearance: Yes: Nourished, Appropriately Dressed. No: Apparent Distress HEENT: positive: EOMI, TERA, Normal ENT Inspection, Normal Voice, Symmetrical, TMs Normal, Pharynx Normal, Hearing Grossly Normal. negative: Photophobia, Scleral Icterus (R), Scleral Icterus (L), Rhinorrhea, Sinus Tenderness, Hearing Decreased, TM Erythema, Thrush Neck: positive: Trachea midline, Normal Thyroid, Supple. negative: Tender, Rigid, Lymphadenopathy (R), Lymphadenopathy (L) Respiratory/Chest: positive: Lungs Clear, Normal Breath Sounds. negative: Chest Tender, Respiratory Distress, Accessory Muscle Use, Crackles Cardiovascular: positive: Regular Rhythm, Regular Rate. negative: S1, S2, Edema , JVD, Murmur Vascular Pulses: Carotid (R): 4+, Carotid (L): 4+ Gastrointestinal/Abdominal: positive: Normal Bowel Sounds, Flat, Soft. negative : Tender, Organomegaly, Pulsatile Mass, Guarding, Rebound, Tenderness Lymphatic: negative: Adenopathy, Tenderness Musculoskeletal: positive: Normal Inspection. negative: CVA Tenderness Extremity: positive: Normal Capillary Refill, Normal Inspection, Normal Range of Motion, Pelvis Stable. negative: Tender, Pedal Edema, Calf Tenderness Integumentary: positive: Normal Color, Dry, Warm. negative: Clammy, Diaphoresis , Rash, Ecchymosis, Bruising Neurologic: positive: package car driver II-XII NML intact, Fully Oriented, Alert, Normal Mood/ Affect, Normal Response, Motor Strength 5/5, Sensory Deficit (Sensation to light touch and pressure decreased over lower extremities b/l up to mid col[place]. ) . negative: EOM Palsy, Facial Droop, Numbness, Finger to Nose ED Treatment Course - LABORATORY CBC & Chemistry Diagram: 11/10/17 16:45 11/10/17 16:45 Medical Decision Making - Medical Decision Making (entered later) pt seen at bedside. Also seen by Dr. Lacey. Pt sent by clinic for hypotension (within normal range for pt) and headache for "sepsis work-up". Pt has open diabetic foot ulcer on L plantar foot. Wound edges are clean, and is draining minimal serosanguinous fluid. Pt vitals stable (afebrile , not tachycardic). Will order CBC, CMP, lactic acid, coags, and non-contrast head CT to r/o sepsis or bleeding. Provided 10 mg IV reglan, 650 mg PO tylenol, and 1 L IV NS for headache. Will reassess and monitor for pain. 11/10/17 16:20 Pt orthostatic vital signs: Lyin/78, HR 74 Sittin/76, HR 98 Standin/64, HR 109 PT 65.2, INR 5.7, PTT 51.4 11/10/17 17:[address] read, no obvious blood on preliminary read in ER. CMP and lactic acid WNL. 11/10/17 17:52 CT: no evidence of acute intracranial pathology. Awaiting nursing staff to give PO tylenol and IV reglan (nursing staff reminded). Pt feeling less vertigo after fluids. Will reassess. 11/10/17 18:13 Charge nurse contacted to give pt medications. Pt comfortably resting on stretcher in hallway. Bandage over L foot wound changed, and clean [id number] dressing applied with bandage. Pt given diabetic ortho shoe for walking. Pt is weight bearing. Pt will follow-up with Dr. Alvarado on Wednesday for wound check. Pt told CT of head was negative, and symptoms likely due to orthostatic hypotension ( dehydration). He will follow-up in clinic at [facility] with his PCP. Strict return precautions provided and pt agreeable to plan. Discharge paperwork completed. Will sign out pt to Dr. Alfaro who will reassess for pain after medications given. 11/10/17 19:02 *DC/Admit/Observation/Transfer Diagnosis at time of Disposition: Orthostatic hypotension, Visit for wound check, Chronic anticoagulation Headache Qualifiers: Headache type: new daily persistent Qualified Code(s): G44.52 - New daily persistent headache (NDPH) Foot ulcer Qualifiers: Laterality: left Non-pressure ulcer stage: with fat layer exposed Qualified Code(s): L97.522 - Non-pressure chronic ulcer of other part of left foot with fat layer exposed - Discharge Dispostion Disposition: HOME Condition at time of disposition: Improved Decision to Admit order: No - Referrals Referrals: [facility] [Provider Group] Cristi Alvarado MD [Staff Physician] - - Patient Instructions Printed Discharge Instructions: DI for Orthostatic Hypotension, DI for Dehydration -- Adult Additional Instructions: You were seen today in the ER for headache and dizziness. The CT of your head and your blood work was normal, showing no signs of infection. Please follow-up for your wound care appointments with your physician, Dr. Alvarado. Please return to the ER if you have worsening headache or dizziness, nausea or vomiting , fevers or chills, worsening drainage from your foot wound, inability to tolerate food or fluids, or any other concerns. - Post Discharge Activity
--- NOTE | 2017-11-10 15:58 | PDOC ---
Attending Attestation - HPI HPI: 11/10/17 17:57 52-year-old male, with a past medical history of a-fib, HTN, diabetes, who presents to the ED with headache, low blood pressure (in the mornings), dizziness/lightheadedness, and blurred vision for the past 2 weeks. Patient also reports that the ulcer on his left foot reopened on Wednesday11/07/17. - Physicial Exam PE: 11/10/17 17:59 GENERAL: Awake, alert, and fully oriented, in no acute distress HEAD: No signs of trauma EYES: PERRLA, EOMI, sclera anicteric, conjunctiva clear ENT: Auricles normal inspection, hearing grossly normal, nares patent, oropharynx clear without exudates. Moist mucosa NECK: No meningeal signs. Normal ROM, supple, no lymphadenopathy, JVD, or masses LUNGS: Breath sounds equal, clear to auscultation bilaterally. No wheezes, and no crackles HEART: Regular rate and rhythm, normal S1 and S2, no murmurs, rubs or gallops ABDOMEN: Soft, nontender, normoactive bowel sounds. No guarding, no rebound. No masses EXTREMITIES: (+)Open ulcer to plantar surface of left foot, minimal serosanguineous drainage, no flunctuants, no induration, no erythema. Normal range of motion, no edema. No clubbing or cyanosis. No cords. NEUROLOGICAL: Cranial nerves II through XII grossly intact. SKIN: Warm, Dry, normal turgor. <Bernadette Zhao - Last Filed: 11/10/17 17:57> - Resident Resident Name: Martha Rodriguez - ED Attending Attestation I have performed the following: I have examined & evaluated the patient, The case was reviewed & discussed with the resident, I agree w/resident's findings & plan, Exceptions are as noted - Medical Decision Making 11/10/17 15:58 I, Dr. Rina Lacey, DO, attest that this document has been prepared under my direction and personally reviewed by me in its entirety. I further attest, that it accurately reflects all work, treatment, procedures and medical decision -making performed by me. 11/10/17 17:07 a/p: 52yo male presents from [facility] for eval of frontal headache and blurred vision x 3 weeks -every morning when he gets up from bed he develops a frontal burroughs and blurred vision - no loss of vision, no double vision, no amarosis fugax -symptoms last about an hour - hour and a half -no paresthesias, no neck pain -no f/c. 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 this was discussed in detail with the patient. sable for d/c to home <Rina Lacey - Last Filed: 11/10/17 21:59> Heart Score/ECG Review - ECG Intrepretation Comment:: 11/10/17 21:58 afib at 88, nl axis, nl axis, no acute st/t wave findings <Rina Lacey - Last Filed: 11/10/17 21:59> Attestations - Attestations 11/10/17 18:05 Documentation prepared by Bernadette Zhao, acting as medical doctor md for Rina Lacey DO. <Bernadette Zhao - Last Filed: 11/10/17 17:57>
[2017-11-10] MEDS ORDERED: SODIUM CHLORIDE 500 ML IV STA (16:16)
[2017-11-10] MEDS ORDERED: METOCLOPRAMIDE HCL INJECTION 10 MG/2 ML VIAL IVPUSH ONE (16:17)
[2017-11-10] MEDS ORDERED: ACETAMINOPHEN 325 MG TABLET (FP) PO ONE (16:18)
[2017-11-10 16:58] LABS: HEMATOCRIT 35.3 % (35.4-49); HEMOGLOBIN 12.4 GM/dL (11.7-16.9); MCH 31.2 pg (25.7-33.7); MCHC 35.1 g/dl (32.0-35.9); MEAN CELL VOLUME 88.7 fl (80-96); MEAN PLT VOLUME 10.3 fl (7.5-11.1); PLATELET COUNT 143 K/MM3 (134-434); RBC 3.99 M/mm3 (4.00-5.60); WHITE BLOOD COUNT 5.2 K/mm3 (4.0-10.0)
[2017-11-10 17:09] LABS: PROTHROMBIN TIME (PATIENT) 65.2 SEC (9.7-13.0)
[2017-11-10 17:12] LABS: ACTIVATED PTT 51.4 SECONDS (25.2-36.5)
[2017-11-10 17:14] LABS: INR 5.77 (0.83-1.09)
[2017-11-10 17:23] LABS: ALBUMIN 3.7 g/dl (3.4-5.0); ANION GAP 11 (8-16); BLOOD UREA NITROGEN 24 mg/dL (7-18); CALCIUM 8.1 mg/dL (8.5-10.1); CHLORIDE 111 mmol/L (98-107); CO2 23 mmol/L (21-32); GLUCOSE,RANDOM 88 mg/dL (74-106); SGPT/ALT 18 U/L (12-78); SODIUM 145 mmol/L (136-145)
[2017-11-10 17:25] LABS: ALK PHOS 94 U/L (45-117); BILIRUBIN,TOTAL 0.5 mg/dL (0.2-1.0); TOT PROT 6.8 g/dl (6.4-8.2)
[2017-11-10 17:32] LABS: POTASSIUM 4.6 mmol/L (3.5-5.1); SGOT/AST 15 U/L (15-37)
[2017-11-10] MEDS ORDERED: SODIUM CHLORIDE 1,000 ML IV STA (17:51)
--- NOTE | 2017-11-10 19:13 | PDOC ---
*Physical Exam - Vital Signs Last Vital Signs Temp Pulse Resp BP Pulse Ox 97.9 F 65 16 127/86 100 11/10/17 13:00 11/10/17 13:00 11/10/17 13:00 11/10/17 13:00 11/10/17 13:00 - Physical Exam Comments: General: Comfortable, no acute distress HEENT: PERRL, EOMI, MMM, voice normal, normal neck ROM, no LAD Cards: Irregularly irregular Pulm: Comfortable on room air, clear to auscultation bilaterally Abd: Soft, nontender, nondistended Ext: Atraumatic. No LE edema. ROM intact. Strength 5/5 and equal bilaterally Vasc: Extremities WWP. Palpable radial and pedal pulses bilaterally. L foot in surgical shoe Neuro: A&Ox3, CN grossly intact, normal speech, motor/sensory grossly intact and symmetric Psych: Mood appropriate to situation ED Treatment Course - LABORATORY CBC & Chemistry Diagram: 11/10/17 16:45 11/10/17 16:45 - ADDITIONAL ORDERS Additional order review: Laboratory Results 11/10/17 11/10/17 11/10/17 16:45 16:45 16:45 PT with INR 65.20 H INR 5.77 H* PTT (Actin FS) 51.4 H Sodium 145 Potassium 4.6 Chloride 111 H Carbon Dioxide 23 Anion Gap 11 BUN 24 H Creatinine 1.0 Creat Clearance w eGFR > 60 Random Glucose 88 D Lactic Acid 1.1 Calcium 8.1 L Total Bilirubin 0.5 AST 15 ALT 18 Alkaline Phosphatase 94 D Total Protein 6.8 Albumin 3.7 11/10/17 16:45 RBC 3.99 L MCV 88.7 MCHC 35.1 RDW 14.0 MPV 10.3 Medical Decision Making - Medical Decision Making 11/10/17 20:28 Ruben Haley is a 52yo man with a PMH of HTN, Afib on warfarin, DM, and chronic L foot ulcer who was sent to the ED from wound clinic today for headache and dizziness. He received 1L fluid bolus prior to arrival and reported that his WU had improved. He was noted to be slightly hypotensive by EMS but SBP was 127 on arrival. - Labs remarkable for supratherapeutic INR to 5. Otherwise unconcerning, no leukocytosis, anemia, significant electrolyte abnormalities - Found to be orthostatic in the ED - recorded orthostatics Lyin/78, HR 74 Sittin/76, HR 98 Standin/64, HR 109 - Currently reports improvement in his symptoms. Given acetaminophen, reglan for WU. 1L fluid bolus started for orthostatics - Will reassess. Plan to DC if improved after bolus 11/10/17 22:12 - Symptoms improved following meds and bolus - New orthostatics taken - significant improvement. - Laying 97/51, HR 75 - Sitting BP 108/73, HR 80 - Standing BP 111/49, HR 98 - Will discharge home - Instructed to hold warfarin for 2 days and see PMD to check INR on Wednesday or Wednesday. Discussed via radio reporter. Mr Haley stated understanding. Discussed with Dr Lacey. *DC/Admit/Observation/Transfer Diagnosis at time of Disposition: Orthostatic hypotension, Visit for wound check, Chronic anticoagulation Headache Qualifiers: Headache type: new daily persistent Qualified Code(s): G44.52 - New daily persistent headache (NDPH) Foot ulcer Qualifiers: Laterality: left Non-pressure ulcer stage: with fat layer exposed Qualified Code(s): L97.522 - Non-pressure chronic ulcer of other part of left foot with fat layer exposed - Discharge Dispostion Disposition: HOME Condition at time of disposition: Improved - Referrals Referrals: [facility] [place] [Provider Group] Cristi Alvarado MD [Staff Physician] - - Patient Instructions Printed Discharge Instructions: DI for Orthostatic Hypotension, DI for Dehydration -- Adult Additional Instructions: You were seen today in the ER for headache and dizziness. The CT of your head and your blood work was normal, showing no signs of infection. Please follow-up for your wound care appointments with your physician, Dr. Alvarado. Please return to the ER if you have worsening headache or dizziness, nausea or vomiting , fevers or chills, worsening drainage from your foot wound, inability to tolerate food or fluids, or any other concerns. Please hold your warfarin (coumadin) for 2 days. You will need to see your primary physician on Wednesday or Wednesday to check your INR (warfarin level). - Post Discharge Activity
[2017-11-10] MEDS ORDERED: METOCLOPRAMIDE HCL INJECTION 10 MG/2 ML VIAL ONE (20:14)
[2017-11-10] MEDS ORDERED: ACETAMINOPHEN 325 MG TABLET (FP) ONE (20:14)
--- NOTE | 2017-11-11 16:48 | EKG ---
Test Reason : Blood Pressure : / mmHG Vent. Rate : 088 BPM Atrial Rate : 087 BPM P-R Int : 000 ms QRS Dur : 080 ms QT Int : 330 ms P-R-T Axes : 000 -14 -04 degrees QTc Int : 399 ms ATRIAL FIBRILLATION ABNORMAL ECG WHEN COMPARED WITH ECG OF 30-SEP-2017 09:42, INVERTED T WAVES HAVE REPLACED NONSPECIFIC T WAVE ABNORMALITY IN INFERIOR LEADS T WAVE AMPLITUDE HAS DECREASED IN ANTERIOR LEADS Confirmed by JHON BECKER, STEPHANIE ([id number]) on 11/11/2017 3:48:56 PM Referred By: Confirmed By:STEPHANIE FERREIRA MD
== END 2017-11-10 23:10 | disposition home or self-care (01) ==
LOC: JER 12:59
PROC: 3E033GC Introduction of Other Therapeutic Substance into Peripheral Vein, Percutaneous Approach (ICD-10-PCS; principal; 2017-11-10)
PROC: 3E0337Z Introduction of Electrolytic and Water Balance Substance into Peripheral Vein, Percutaneous Approach (ICD-10-PCS; 2017-11-10)
DX: Z48.00 Encounter for change or removal of nonsurgical wound dressing (principal); L97.522 Non-pressure chronic ulcer of other part of left foot with fat layer exposed; G44.52 New daily persistent headache (NDPH); I95.1 Orthostatic hypotension; Z79.01 Long term (current) use of anticoagulants; I10 Essential (primary) hypertension; E11.9 Type 2 diabetes mellitus without complications
CPT/HCPCS: 36415; 70450-TC; 80053; 83605; 85027; 85610; 85730; 93005; 93010; 99281-25; J7030

== ENCOUNTER 2017-11-26 17:24 | Emergency (ER) | payer OTHER ==
--- NOTE | 2017-11-26 17:39 | PDOC ---
History of Present Illness - General Stated Complaint: SYNCOPE Time Seen by Provider: 11/26/17 17:38 History Source: Patient Exam Limitations: Language Barrier - History of Present Illness Initial Comments: 11/26/17 19:01 HPI taken with [employer] independent producer number [id number]. Patient is a 52M PMH of atrial fib (on coumadin), diabetes with a diabetic foot wound s/p IV Abx longtern with PICC, and hypertension. Patient known to the resident clinic. Patient was sent to the ED by the clinic for further evaluation of his headache neck pain and orthostyatic hypotnesion. Patient was seen in the clinic today and was complaining of headahce and neck pain. He was also complaining of blurry vision and not being able to see "people" for a few minutes at a time. Patient states that he has been having symptoms of pounding headache, blurry vision that was worse with ambulation, associated with lightheadedness and resolves when he is lying down. He was admitted recently for this issue and discharged on 11/21/17. He was started on midodrine. The patient is also on metoprolol and lisinopril. He denies nausea vomiting fever chills chest pain shortness of breath. He endorses urinary frequency. He states his blood sugars are well controlled and usually 150-160. Past History - Past Medical History Allergies/Adverse Reactions: Allergies Allergy/AdvReac Type Severity Reaction Status Date / Time No Known Allergies Allergy Verified 11/26/17 17:43 Home Medications: Ambulatory Orders Warfarin Sodium [Coumadin] 5 mg PO DAILY 09/30/17 Metoprolol Succinate [Toprol XL -] 25 mg PO DAILY #30 tab.sr.24h 11/21/17 Midodrine HCl [Proamatine -] 10 mg PO TID #90 tablet 11/21/17 metFORMIN HCL [Glucophage -] 1,000 mg PO BID #60 tablet 11/21/17 Anemia: No Asthma: No Cancer: No Cardiac Disorders: Yes (Afib) CVA: No COPD: No DVT: No Dementia: No Diabetes: Yes Dialysis: No GI Disorders: No Disorders: No HTN: Yes Hypercholesterolemia: No Kidney Stones: No Liver Disease: No Psychiatric Problems: No Seizures: No Thyroid Disease: No Lung CA: No - Surgical History Abdominal Surgery: No Appendectomy: No Cardiac Surgery: No Cholecystectomy: No Lung Surgery: No Neurologic Surgery: No Orthopedic Surgery: Yes - Immunization History Immunization Up to Date: No - Suicide/Smoking/Psychosocial Hx Smoking History: Never smoked Have you smoked in the past 12 months: No Number of Cigarettes Smoked Daily: 0 Hx Alcohol Use: No Drug/Substance Use Hx: No Substance Use Type: None Hx Substance Use Treatment: No Review of Systems - Review of Systems Constitutional: No: Symptoms Reported, See HPI, Chills, Diaphoresis, Fever, Loss of Appetite, Malaise, Night Sweats, Weakness, Weight Stable, Unintentional Wgt. Loss, Unexplained wgt Loss, Other HEENTM: Yes: Other (Neck pain) Respiratory: No: Symptoms reported, See HPI, Cough, Orthopnea, Shortness of Breath, SOB with Exertion, SOB at Rest, Stridor, Wheezing, Productive cough, Hemoptysis, Other Cardiac (ROS): Yes: Lightheadedness, Other (presyncope) ABD/GI: No: Symptoms Reported, See HPI, Abdominal Distended, Abd. Pain w/ defecation, Blood Streaked Bowels, Constipated, Diarrhea, Difficulty Swallowing , Nausea, Poor Appetite, Poor Fluid Intake, Rectal Bleeding, Vomiting, Indigestion, Abdominal cramping, Tarry Stools, Other : No: Symptoms Reported, See HPI, Burning, Dysuria, Discharge, Frequency, Flank Pain, Hematuria, Incontinence, Pain, Urgency, Testicular Mass, Testicular Swelling, Lesions, Testicular Pain, Other Musculoskeletal: No: Symptoms Reported, See HPI, Back Pain, Gout, Joint Pain, Joint Swelling, Muscle Pain, Muscle Weakness, Neck Pain, Joint Stiffness, Other Integumentary: No: Symptoms Reported, See HPI, Bruising, Change in Color, Change in Hair/Nails, Dryness, Erythema, Flushing, Lesions, Lumps, Pallor, Pruritus, Rash, Sweating, Other Neurological: Yes: Headache Psychiatric: No: Anxiety, Depression, Frequent Crying, Stressors, Sleep Pattern Change, Emotional Problems, Mood Swings, Change in Appetite, Other Endocrine: No: Symptoms Reported, See HPI, Excessive Sweating, Flushing, Intolerance to Cold, Intolerance to Heat, Increased Hunger, Increased Thirst, Increased Urine, Unexplained Weight Gain, Unexplained Weight Loss, Change in Weight, Other Hematologic/Lymphatic: No: Symptoms Reported, See HPI, Anemia, Blood Clots, Easy Bleeding, Easy Bruising, Bleeding Diathesis, Lymph Node Abnormalities, Swollen Glands, Other *Physical Exam - Physical Exam General Appearance: Yes: Nourished, Appropriately Dressed. No: Apparent Distress HEENT: positive: EOMI, TERA, Other (no nystagmus). negative: Pale Conjunctivae Neck: positive: Tender (mildly tender ), Trachea midline, Supple Respiratory/Chest: positive: Lungs Clear, Normal Breath Sounds. negative: Chest Tender, Respiratory Distress Cardiovascular: positive: S1, S2, Irregularly Irregular Gastrointestinal/Abdominal: positive: Soft. negative: Tender Musculoskeletal: negative: CVA Tenderness Neurologic: positive: customer account specialist II-XII NML intact, Fully Oriented, Alert, Normal Mood/ Affect, Other (no neck rigidity negative brudsinkis and kernig signs) Heart Score/ECG Review - ECG Impressions Comment:: 11/26/17 19:32 A fib rate @ 83 BPM ED Treatment Course - LABORATORY CBC & Chemistry Diagram: 11/26/17 18:20 11/26/17 18:20 Medical Decision Making - Medical Decision Making 11/26/17 19:32 52M with multiple medical problems presents to the ER with presyncopal symptoms neck pain headache and orthostatic hypotension. Do not suspect meningitis as patient does not have meningeal signs and this has been an ongoing issue for the past month per patient. DDx includes but not limited to polypharmacy induced orthostatiuc hypotension ( patient on metoprolol and lisinopril in addition to midodrine), diabetic autonomic neurpathy, dehydratrion/volume depletion, cardiac arrhythmias. Patient has orthostatic hypotension here systolc dropped by 20 when going from sitting to standing and waiting 5 minutes in between Will do: CBC CMP Mg Cardiac profile UA for increased urinary frequency EKG CXR IVF Reassess after IVF 11/26/17 22:47 labs reviewed Cr 1.5 patient with ОЛЬГА second liter NS given patient feels much better now. When asked to stand from lying down he was asymptomatic orthostatic vital signs 105/70 HR 90 lying down 91/60 HR 95 standing Will discharge holding lisinopril and with instructions to avoid abrupt postural changes *DC/Admit/Observation/Transfer Diagnosis at time of Disposition: Orthostatic hypotension - Discharge Dispostion Disposition: HOME Condition at time of disposition: Improved Decision to Admit order: No - Referrals Referrals: Kirill Mijares MD [Staff Physician] - 11/29/17 - Patient Instructions Printed Discharge Instructions: DI for Syncope in Adults (Fainting), DI for Orthostatic Hypotension, Orthostatic Hypotension Additional Instructions: if your symptoms worsen go to the nearest emergency room. Go to the clinic on Wednesday. Do not stand up too fast from a sitting position. Take your time and make sure you have something to hold on to. Lets your legs dangle for a few minutes and stand up very slowly. Stop the lisinopril until you see your doctor and continue the other medications. Continue the midodrine. On Wednesday when you see your doctors have them recheck your kidney function your creatinine was 1.5 which was a higher than before. Si delmi sntomas empeoran, dirjase a la simin de emergencias ms cercana. Ve a la clnica el . No te levantes demasiado rpido de mariana posicin sentada. Tmese neil tiempo y asegrese de tener algo a lo que aferrarse. Permite que tus piernas cuelguen por unos minutos y se pongan de pie muy lentamente. Detenga el lisinopril hasta que omero a neil mdico y contine con los dems medicamentos. El , cuando omero a delmi mdicos hacer que vuelvan a revisar neil funcin renal, neil nivel de creatinina era 1.5, que era ms alto que antes. - Post Discharge Activity
[2017-11-26 17:55] VITALS: BMI 23.5
[2017-11-26 18:28] LABS: BASO % 0.5 % (0-2.0); EOS % 1.1 % (0-4.5); HEMATOCRIT 36.8 % (35.4-49); HEMOGLOBIN 12.8 GM/dL (11.7-16.9); LYMPH % 25.4 % (8-40); MCH 30.7 pg (25.7-33.7); MCHC 34.8 g/dl (32.0-35.9); MEAN CELL VOLUME 88.1 fl (80-96); MEAN PLT VOLUME 10.2 fl (7.5-11.1); MONO % 7.6 % (3.8-10.2); NEUT % 65.4 % (42.8-82.8); PLATELET COUNT 216 K/MM3 (134-434); RBC 4.17 M/mm3 (4.00-5.60); RDW 13.8 % (11.9-15.9); WHITE BLOOD COUNT 7.2 K/mm3 (4.0-10.0)
--- NOTE | 2017-11-26 18:30 | PDOC ---
Attending Attestation - HPI HPI: 11/26/17 18:34 The patient is a 52 year old male, with a significant past medical history of diabetes, hypertension, AFib, and diabetic foot ulcer being followed by the [facility], who presents to the emergency department with headaches, neck pain , and visual changes. He states he had a short episode of not being able to see people. He was discharged on 11/21 after being admitted to the hospital for a few days for similar symptoms. He also reports increased urination at night. The patient denies chest pain, shortness of breath, and dizziness. The patient denies fever, chills, nausea, vomit, diarrhea and constipation. The patient denies dysuria and hematuria. Allergies: NKDA - Physicial Exam PE: 11/26/17 18:35 GENERAL: The patient is in no acute distress. HEAD: Normal with no signs of trauma. EYES: PERRLA, EOMI, sclera anicteric, conjunctiva clear. ENT: Ears normal, nares patent, oropharynx clear without exudates. Moist mucous membranes. NECK: Normal range of motion, supple without lymphadenopathy, JVD, or masses. LUNGS: Breath sounds equal, clear to auscultation bilaterally. No wheezes, and no crackles. HEART:Regular rate and rhythm, normal S1 and S2 without murmur, rub or gallop. ABDOMEN: Soft, nontender, normoactive bowel sounds. No guarding, no rebound. No masses palpable. EXTREMITIES: Normal range of motion, no edema. No clubbing or cyanosis. No erythema, or tenderness. NEUROLOGICAL: Cranial nerves II through XII grossly intact. Normal speech. No focal neurological deficits. MUSCULOSKELETAL: Back non-tender to palpation, no CVA tenderness SKIN: Warm, Dry, normal turgor, no rashes or lesions noted. - Medical Decision Making 11/26/17 18:34 Documentation prepared by Stella Oneill, acting as medical research tech for Ysabel Whipple MD 11/26/17 18:[address] Whipple at this time Impression: Atrial Fibrillation Vent Rat: 83 bpm <Stella Oneill - Last Filed: 11/26/17 18:36> - Resident Resident Name: Troy Dunlap - ED Attending Attestation I have performed the following: I have examined & evaluated the patient, The case was reviewed & discussed with the resident, I agree w/resident's findings & plan, Exceptions are as noted - Medical Decision Making 11/26/17 18:32 Laboratory Tests 11/19/17 11/26/17 06:25 18:20 WBC 6.0 7.2 Hgb 13.7 12.8 Hct 38.7 36.8 Plt Count 189 D 216 11/26/17 20:41 Laboratory Tests 11/26/17 11/26/17 11/26/17 18:20 18:20 18:20 WBC 7.2 Hgb 12.8 Hct 36.8 Plt Count 216 INR 2.33 H BUN 28 H Creatinine 1.5 H Creatine Kinase 141 Troponin I < 0.02 Urine Blood Urine Nitrite Ur Leukocyte Esterase 11/26/17 20:09 WBC Hgb Hct Plt Count INR BUN Creatinine Creatine Kinase Troponin I Urine Blood Negative Urine Nitrite Negative Ur Leukocyte Esterase Negative EKG: Afib rate of 83 bpm, axis nml, intervals nml - QRS: 80ms, QTc: 392ms, no st elevations or depressions, t waves upright 11/26/17 23:29 Upon re assessment, pt states his dizziness has largely improved Case reviewed with Hospitalist Dr. Braswell who recommends that pt Lisinopril be discontinued Pt can be discharged to home I have asked this patient to follow up with the resident clinic on wednesday I have asked him to return to the ER IMMEDIATELY for any other concerns or complaints clinical Impression: orthostatic hypotension, initial presentation <Ysabel Whipple - Last Filed: 11/26/17 23:42>
[2017-11-26 18:53] LABS: INR 2.33 (0.83-1.09); PROTHROMBIN TIME (PATIENT) 26.3 SEC (9.7-13.0)
[2017-11-26 18:55] LABS: ACTIVATED PTT 37.4 SECONDS (25.2-36.5)
[2017-11-26] MEDS ORDERED: SODIUM CHLORIDE 1,000 ML IV STA ×2 (18:57→21:14)
[2017-11-26 19:08] LABS: ALBUMIN 4.2 g/dl (3.4-5.0); ANION GAP 10 MMOL/L (8-16); BILIRUBIN,TOTAL 0.4 mg/dL (0.2-1.0); BLOOD UREA NITROGEN 28 mg/dL (7-18); CALCIUM 8.9 mg/dL (8.5-10.1); CHLORIDE 102 mmol/L (98-107); CO2 25 mmol/L (21-32); CREATININE 1.5 mg/dL (0.7-1.3); GLUCOSE,RANDOM 79 mg/dL (74-106); POTASSIUM 4.3 mmol/L (3.5-5.1); SGOT/AST 18 U/L (15-37); SGPT/ALT 22 U/L (12-78); SODIUM 137 mmol/L (136-145); TOT PROT 7.5 g/dl (6.4-8.2)
[2017-11-26 19:10] LABS: ALK PHOS 105 U/L (45-117)
[2017-11-26 20:32] LABS: URINE APPEARANCE CLEAR; URINE BILIRUBIN NEGATIVE (<2.0 mg/dL); URINE COLOR STRAW; URINE GLUCOSE (UA) NEGATIVE (NEGATIVE); URINE KETONE NEGATIVE (NEGATIVE); URINE LEUK ESTERASE NEGATIVE (NEGATIVE); URINE NITRITE NEGATIVE (NEGATIVE); URINE PROTEIN NEGATIVE (NEGATIVE); URINE UROBILINOGEN NEGATIVE mg/dL (0.2-1.0)
[2017-11-27 00:03] VITALS: BP 112/54; PULSE 82; TEMP 98.2
--- NOTE | 2017-11-27 19:08 | EKG ---
Test Reason : Blood Pressure : / mmHG Vent. Rate : 083 BPM Atrial Rate : 441 BPM P-R Int : 000 ms QRS Dur : 080 ms QT Int : 334 ms P-R-T Axes : 000 -14 006 degrees QTc Int : 392 ms ATRIAL FIBRILLATION CANNOT RULE OUT ANTERIOR INFARCT , AGE UNDETERMINED ABNORMAL ECG WHEN COMPARED WITH ECG OF 12-NOV-2017 11:41, NO SIGNIFICANT CHANGE WAS FOUND Confirmed by DOROTHY JORGE MD ([id number]) on 11/27/2017 7:08:02 PM Referred By: Confirmed By:DOROTHY JORGE MD
== END 2017-11-27 00:03 | disposition home or self-care (01) ==
LOC: JER 17:24
PROC: 3E0337Z Introduction of Electrolytic and Water Balance Substance into Peripheral Vein, Percutaneous Approach (ICD-10-PCS; principal; 2017-11-26)
DX: I95.1 Orthostatic hypotension (principal); I10 Essential (primary) hypertension; E11.9 Type 2 diabetes mellitus without complications; Z79.84 Long term (current) use of oral hypoglycemic drugs; I48.91 Unspecified atrial fibrillation; Z79.01 Long term (current) use of anticoagulants
CPT/HCPCS: 36415; 71045-TC-FY; 80053; 81003; 82550; 84484; 85025; 85610; 85730; 87086; 93005; 93010; 96360; 96361; 99284-25; J7030

== ENCOUNTER 2018-01-02 15:47 | Inpatient (IN) | payer OTHER ==
--- NOTE | 2018-01-02 16:04 | PDOC ---
History of Present Illness - General Chief Complaint: Wound Stated Complaint: WOUND LEFT FOOT Time Seen by Provider: 01/02/18 15:57 History Source: Patient - History of Present Illness Initial Comments: 01/02/18 16:53 52 year old male with a PMH of AFib (on Coumadin), IDDM and diabetic foot ulcer presents with a 1 day h/o RLE foot pain. Patient states the extremity has been swollen for 2-3 days and he felt pain today prompting his visit to the ED. Pain is worse when weight bearing and is throbbing/burning. Denies any fevers/ chills. Follows at wound clinic (last appointment on Wednesday 12/27) -- states he is told wound is healing, however he is concerned that he will lose additional toes. NKDA Surgical: B/L phalange removal Social: denies toxic habits PMD: cannot recall name; was admitted to hospitalist on prior occasion As per EMR, patient evaluated earlier this month (12/11/17) for similar complaints at which time patient was on Amoxicillin and XR was negative for osteomyelitis. Patient was given referral to Dr. Scott (vascular surgery) but has not been evaluated. Wound culture in 03/21 (most recent available) grew coagulase negative staph. Past History - Past Medical History Allergies/Adverse Reactions: Allergies Allergy/AdvReac Type Severity Reaction Status Date / Time No Known Allergies Allergy Verified 01/02/18 15:52 Home Medications: Ambulatory Orders Metformin HCl [Glucophage] 1,000 mg PO BID 01/02/18 Warfarin Sodium [Coumadin] 6 mg PO HS 01/02/18 Anemia: No Asthma: No Cancer: No Cardiac Disorders: Yes (Afib) CVA: No COPD: No DVT: No Dementia: No Diabetes: Yes Dialysis: No GI Disorders: No Disorders: No HTN: Yes Hypercholesterolemia: No Kidney Stones: No Liver Disease: No Psychiatric Problems: No Seizures: No Thyroid Disease: No Lung CA: No - Surgical History Abdominal Surgery: No Appendectomy: No Cardiac Surgery: No Cholecystectomy: No Lung Surgery: No Neurologic Surgery: No Orthopedic Surgery: Yes - Immunization History Immunization Up to Date: No - Suicide/Smoking/Psychosocial Hx Smoking History: Never smoked Have you smoked in the past 12 months: No Number of Cigarettes Smoked Daily: 0 Hx Alcohol Use: No Drug/Substance Use Hx: No Substance Use Type: None Hx Substance Use Treatment: No Review of Systems - Review of Systems Constitutional: No: Chills, Fever Respiratory: No: Cough, Shortness of Breath Cardiac (ROS): No: Chest Pain, Lightheadedness, Palpitations, Syncope ABD/GI: No: Constipated, Diarrhea, Nausea, Vomiting : No: Burning, Dysuria *Physical Exam - Vital Signs Last Vital Signs Temp Pulse Resp BP Pulse Ox 98 F 104 H 20 90/48 L 97 01/02/18 15:49 01/02/18 15:49 01/02/18 15:49 01/02/18 15:49 01/02/18 15:49 - Physical Exam General Appearance: Yes: Nourished, Appropriately Dressed Neck: positive: Tender, Supple Respiratory/Chest: positive: Lungs Clear, Normal Breath Sounds Cardiovascular: positive: S1, S2 Vascular Pulses: Dorsalis-Pedis (R): 2+, Doralis-Pedis (L): 2+ Gastrointestinal/Abdominal: positive: Normal Bowel Sounds, Soft Musculoskeletal: negative: CVA Tenderness (R), CVA Tenderness (L) Extremity: positive: Normal Capillary Refill, Other (LLE: edematous, L plantar surface stage 3 ulcer w/purulent discharge, L 2nd and third digit erythema, warm , 2+ DP pulse) Neurologic: positive: Fully Oriented, Alert Heart Score/ECG Review - Age Age: 45-65 - Risk Factors Risk Factors Heart Score: Yes Hx Diabetes - ECG Intrepretation Rhythm: Irregularly Irregular - [place]: Normal (AFib with RVR (HR 103)) ED Treatment Course - LABORATORY CBC & Chemistry Diagram: 01/02/18 17:02 01/02/18 17:02 Medical Decision Making - Medical Decision Making 01/02/18 16:44 52 year old male w/L plantar surface Stage 2 diabetic foot ulcer and possible cellulitic change of L phalange. Afebrile, mildly tachycardic (HR 100's) on PE. Will obtain basic labs, ESR, CRP. Will page ID (patient evaluated by Dr. Rodney in wound clinic) - IV Abx pending. 01/02/18 17:13 ID, Dr. Liu @ bedside; states she has evaluated patient on multiple prior occasions. Will start broad spectrum IV Abx. States patient should be admitted. 01/02/18 17:21 ECG shows AFib with HR 103 -- will continue to monitor closely. 01/02/18 17:28 No leukocytosis 01/02/18 17:49 CRP 1.7 ESR pending Will page hospitalist for admission 01/02/18 18:14 Patient admitted to hospitalist medicine service -inpatient unit. Patient counseled on plan of care. Repeat VS stable. *DC/Admit/Observation/Transfer Diagnosis at time of Disposition: Diabetic foot ulcer Qualifiers: Diabetic foot ulcer location: midfoot Diabetes mellitus type: type 1 Laterality : left Non-pressure ulcer stage: unspecified non-pressure ulcer stage Qualified Code(s): E10.621 - Type 1 diabetes mellitus with foot ulcer - Discharge Dispostion Condition at time of disposition: Fair Decision to Admit order: Yes - Referrals - Patient Instructions - Post Discharge Activity
[2018-01-02] MEDS ORDERED: VANCOMYCIN 1,000 MG in DEXTROSE 5%-WATER - 250 ML IVPB SCH (17:15)
[2018-01-02] MEDS ORDERED: PIPERACILLIN/TAZOB 3.375 GM 3.375 GM in DEXTROSE 5%-WATER - 50 ML IVPB SCH (17:15)
[2018-01-02] MEDS ORDERED: PIPERACILLIN/TAZOB 3.375 GM 3.375 GM/50 ML BAG IVPB ONE (17:21)
[2018-01-02] MEDS ORDERED: VANCOMYCIN 1 GRAM (PRE-DOCKED) 1,000 MG/250 ML BAG IVPB ONE (17:21)
[2018-01-02 17:23] LABS: BASO % 0.9 % (0-2.0); EOS % 1.6 % (0-4.5); HEMATOCRIT 32.4 % (35.4-49); HEMOGLOBIN 11.1 GM/dL (11.7-16.9); LYMPH % 18.3 % (8-40); MCH 30.7 pg (25.7-33.7); MCHC 34.3 g/dl (32.0-35.9); MEAN CELL VOLUME 89.3 fl (80-96); MEAN PLT VOLUME 10.7 fl (7.5-11.1); MONO % 7.7 % (3.8-10.2); NEUT % 71.5 % (42.8-82.8); PLATELET COUNT 174 K/MM3 (134-434); RBC 3.63 M/mm3 (4.00-5.60); RDW 14.2 % (11.9-15.9); WHITE BLOOD COUNT 7.2 K/mm3 (4.0-10.0)
[2018-01-02] MEDS ORDERED: SODIUM CHLORIDE 0.9% 500 ML INFUS.BAG IV ONE (17:23)
[2018-01-02] MEDS: PIPERACILLIN/TAZOB 3.375 GM 3.375 GM in DEXTROSE 5%-WATER - 50 ML IVPB SCH ×2 (17:30→21:42)
[2018-01-02 17:33] LABS: INR 3.26 (0.83-1.09); PROTHROMBIN TIME (PATIENT) 38.9 SEC (9.7-13.0)
[2018-01-02 17:48] LABS: ALBUMIN 3.6 g/dl (3.4-5.0); ALK PHOS 103 U/L (45-117); ANION GAP 9 MMOL/L (8-16); BILIRUBIN,TOTAL 0.2 mg/dL (0.2-1); BLOOD UREA NITROGEN 19 mg/dL (7-18); CALCIUM 8.3 mg/dL (8.5-10.1); CHLORIDE 101 mmol/L (98-107); CO2 22 mmol/L (21-32); GLUCOSE,RANDOM 136 mg/dL (74-106); SGOT/AST 20 U/L (15-37); SGPT/ALT 18 U/L (13-61); SODIUM 132 mmol/L (136-145); TOT PROT 7.1 g/dl (6.4-8.2)
[2018-01-02] MEDS ORDERED: WARFARIN NA 2 MG TABLET (UD) PO ONE (18:00)
--- NOTE | 2018-01-02 18:03 | PN ---
Teaching Attending Note Name of Resident: Urbano Wu ATTENDING PHYSICIAN STATEMENT I saw and evaluated the patient. I reviewed the resident's note and discussed the case with the resident. I agree with the resident's findings and plan as documented. SUBJECTIVE: Patient has no fever or chills, no shortness of breath. OBJECTIVE: Vital Signs Temperature 98 F 01/02/18 15:49 Pulse Rate 104 H 01/02/18 16:43 Respiratory Rate 17 01/02/18 16:43 Blood Pressure 108/77 01/02/18 16:43 O2 Sat by Pulse Oximetry (%) 98 01/02/18 16:43 PHYSICAL EXAMINATION GENERAL: The patient is awake, alert, and fully oriented, in no acute distress. LUNGS: Breath sounds equal, clear to auscultation bilaterally, no wheezes, no crackles, no accessory muscle use. HEART: Regular rate and rhythm, S1, S2 ABDOMEN: Soft, nontender, nondistended EXTREMITIES: 2+ pulses, warm, well-perfused, no edema. left foot NEUROLOGICAL: Cranial nerves II through XII grossly intact. Normal speech. CBCD WBC 7.2 K/mm3 (4.0-10.0) 01/02/18 17:02 RBC 3.63 M/mm3 (4.00-5.60) L 01/02/18 17:02 Hgb 11.1 GM/dL (11.7-16.9) L 01/02/18 17:02 Hct 32.4 % (35.4-49) L 01/02/18 17:02 MCV 89.3 fl (80-96) 01/02/18 17:02 MCHC 34.3 g/dl (32.0-35.9) 01/02/18 17:02 RDW 14.2 % (11.9-15.9) 01/02/18 17:02 Plt Count 174 K/MM3 (134-434) 01/02/18 17:02 MPV 10.7 fl (7.5-11.1) 01/02/18 17:02 CMP Sodium 132 mmol/L (136-145) L 01/02/18 17:02 Potassium 4.0 mmol/L (3.5-5.1) 01/02/18 17:02 Chloride 101 mmol/L (98-107) 01/02/18 17:02 Carbon Dioxide 22 mmol/L (21-32) 01/02/18 17:02 Anion Gap 9 MMOL/L (8-16) 01/02/18 17:02 BUN 19 mg/dL (7-18) H 01/02/18 17:02 Creatinine 1.0 mg/dL (0.55-1.3) 01/02/18 17:02 Creat Clearance w eGFR > 60 (>60) 01/02/18 17:02 Random Glucose 136 mg/dL (74-106) H 01/02/18 17:02 Calcium 8.3 mg/dL (8.5-10.1) L 01/02/18 17:02 Total Bilirubin 0.2 mg/dL (0.2-1) 01/02/18 17:02 AST 20 U/L (15-37) 01/02/18 17:02 ALT 18 U/L (13-61) 01/02/18 17:02 Alkaline Phosphatase 103 U/L (45-117) 01/02/18 17:02 Total Protein 7.1 g/dl (6.4-8.2) 01/02/18 17:02 Albumin 3.6 g/dl (3.4-5.0) 01/02/18 17:02 Current Medications Generic Name Dose Route Start Last Admin Trade Name Freq PRN Reason Stop Dose Admin Vancomycin HCl 1 gm in 200 mls @ 133.333 mls/hr 01/02/18 17:30 Vancomycin 1 Gm Premix - IVPB Q12H TOSHIA Piperacillin Sod/Tazobactam 50 mls @ 100 mls/hr 01/02/18 17:30 01/02/18 17:30 Sod 3.375 gm/ Dextrose IVPB 100 mls/hr Q6H-IV TOSHIA Administration Home Medications Medication Instructions Recorded Metformin HCl [Glucophage] 1,000 mg PO BID #60 tablet 07/19/17 Warfarin Sodium [Coumadin] 5 mg PO DAILY 09/30/17 Digoxin 125 mcg PO DAILY 11/12/17 ASSESSMENT AND PLAN: 52 year-old male with a PMH significant for atrial fibrillation (on coumadin), IDDM, osteo of left foot, s/p multiple amputations of left foot. Admitted for dizziness secondary to orthostatic hypotension. # Left foot cellulitis , Jain culture , ID consult , on Vanc and Zosyn # Permanent a.fib on Coumadin daily INR ,On coumadin 5mg po daily , will give 2mg tonight since INR is 3.26 today, continue ToprolXL #T2DM Novolog sliding scale coverage DVT prophylaxis: on coumadin Full code.
[2018-01-02] MEDS: VANCOMYCIN 1 GM PREMIX - 1 GM/200 ML BAG IVPB SCH (18:06)
[2018-01-02 18:10] LABS: ERYTHROCYTE SEDIMENTATION RATE 29 mm/hr (0-20)
--- NOTE | 2018-01-02 18:44 | HP ---
CHIEF COMPLAINT: left lower extremity pain and swelling PCP: HISTORY OF PRESENT ILLNESS: Patient is a 52 year old male with history of Afib (on coumadin), diabetes, osteomyelitis left foot, presents with complaint of left foot pain and swelling for the past three weeks. Describes insidious onset without clear inciting event. Denies trauma. States that pain is sharp, throbbing, and occasionally feels parasthesias. Radiates up the leg to the knee. Pain is exacerbated with palpation and weight bearing. 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 States his fasting blood glucose is approx 150. Denies fevers, chills, shortness of breath, cough, chest pain, palpitations, abdominal pain, nausea, vomiting. ER course was notable for: (1) INR 3.26 (2) (3) Recent Travel: PAST MEDICAL HISTORY: Diabetes, hypertension, diabetic foot ulcer, osteomyelits left foot PAST SURGICAL HISTORY: Amputation of two toes left foot, one toe right foot 2 years ago. Social History: Smoking: denies Alcohol: denies Drugs: denies Family History: Allergies No Known Allergies Allergy (Verified 01/02/18 15:52) HOME MEDICATIONS: Home Medications Medication Instructions Recorded Metformin HCl [Glucophage] 1,000 mg PO BID 01/02/18 Warfarin Sodium [Coumadin] 6 mg PO HS 01/02/18 REVIEW OF SYSTEMS CONSTITUTIONAL: Absent: fever, chills, diaphoresis, generalized weakness, malaise, loss of appetite, weight change HEENT: Absent: rhinorrhea, nasal congestion, throat pain, throat swelling, ear pain, eye pain, visual changes CARDIOVASCULAR: Absent: chest pain, syncope, palpitations, lightheadedness, peripheral edema RESPIRATORY: Absent: cough, shortness of breath, dyspnea with exertion, orthopnea, wheezing, GASTROINTESTINAL: Absent: abdominal pain, abdominal distension, nausea, vomiting, diarrhea, constipation, GENITOURINARY: Absent: dysuria, frequency, urgency, hesitancy, hematuria, SKIN: Admits: swelling, discoloration left foot. ENDOCRINE: Absent: unexplained weight gain, unexplained weight loss. NEUROLOGIC: Admits: parasthesias in left lower extremity. Absent: headache, focal weakness, dizziness, seizure, mental status changes, bladder or bowel incontinence PSYCHIATRIC: Absent: anxiety, depression. PHYSICAL EXAMINATION Vital Signs - 24 hr 01/02/18 01/02/18 15:49 16:43 Temperature 98 F Pulse Rate 104 H Pulse Rate [ 104 H Left Radial] Respiratory 20 17 Rate Blood Pressure 90/48 L Blood Pressure 108/77 [Right Arm] O2 Sat by Pulse 97 98 Oximetry (%) GENERAL: Awake, alert, and fully oriented, in no acute distress. HEAD: Normal with no signs of trauma. EYES: Pupils equal, round and reactive to light, extraocular movements intact, sclera anicteric, conjunctiva clear. EARS, NOSE, THROAT: Oropharynx clear without exudates. Moist mucous membranes. NECK: Normal range of motion, supple without lymphadenopathy. LUNGS: Breath sounds equal, clear to auscultation bilaterally. No wheezes, and no crackles. No accessory muscle use. HEART: irregular rate and rhythm. Normal S1 and S2 without murmur, rub or gallop. ABDOMEN: Soft, nontender, not distended, normoactive bowel sounds, no guarding, no rebound, no masses. No hepatomegaly or splenomegaly. UPPER EXTREMITIES: 2+ radial pulses, warm, well-perfused. LOWER EXTREMITIES: 1+ dorsalis pedis pulses. Warm. Swollen left foot compared to right. Amputation of two toes left foot, one toe right foot. [id number] diabetic foot ulcer on plantar aspect left foot. Clean margins, no drainage noted. NEUROLOGICAL: Cranial nerves II-XII intact. Sensation intact b/l upper and lower extremities. PSYCHIATRIC: Cooperative. Appropriate mood and affect. SKIN: Discoloration over dorsal aspect left foot for past 9 months. Laboratory Results - last 24 hr 01/02/18 01/02/18 01/02/18 17:02 17:02 17:02 WBC 7.2 RBC 3.63 L Hgb 11.1 L Hct 32.4 L MCV 89.3 MCH 30.7 MCHC 34.3 RDW 14.2 Plt Count 174 MPV 10.7 Absolute Neuts (auto) 5.1 Neutrophils % 71.5 Lymphocytes % 18.3 Monocytes % 7.7 Eosinophils % 1.6 Basophils % 0.9 Nucleated RBC % 0 ESR 29 H PT with INR 38.90 H INR 3.26 H PTT (Actin FS) 44.0 H Sodium 132 L Potassium 4.0 Chloride 101 Carbon Dioxide 22 Anion Gap 9 BUN 19 H Creatinine 1.0 Creat Clearance w eGFR > 60 Random Glucose 136 H Calcium 8.3 L Total Bilirubin 0.2 AST 20 ALT 18 Alkaline Phosphatase 103 C-Reactive Protein 1.7 H Total Protein 7.1 Albumin 3.6 ASSESSMENT/PLAN: Patient is a 52 year old male with history of Afib (on Coumadin), diabetes, diabetic foot ulcer, and osteomyelitis of left foot presents with complaint of left foot pain and swelling for the past three weeks. Cellulitis left lower extremity -Left lower extremity is warm, swollen, chronic discoloration along dorsal aspect -Vancomycin 1gram Q12H -Zosyn 3.375 grams Q6H -F/U ID consult (Dr. Rodney) -F/U podiatry consult (Dr. Alvarado) -F/U hyperbarics consult -F/U wound culture -F/U blood culture Afib -INR supratherapeutic at 3.26 -2mg Coumadin once tonight tonight -F/U Digoxin level -F/U PT/INR Diabetes -Hold Metformin -ISS -BGM FEN -No IV fluids. Encourage judicious oral hydration. -Will follow CMP -Diabetic diet Prophylaxis -On Coumadin for Afib Disposition -Admit to medical-surgical floor for IV antibiotics Visit type - Emergency Visit Emergency Visit: Yes Care time: The patient presented to the Emergency Department on the above date and was hospitalized for further evaluation of their emergent condition. - New Patient This patient is new to me today: Yes Date on this admission: 01/02/18 - Critical Care Critical Care patient: No Hospitalist Screening - Colonoscopy Questionnaire Colonoscopy Questionnaire: Colonoscopy Questionnaire - Patient: 50 - 75 years old and never had a screening colonoscopy: Unknown History of colon or rectal polyps, or CA: Unknown History of IBD, Crohn's disease or UC: Unknown History of abdominal radiation therapy as a child: Unknown - Relative: 1 with colon or rectal CA, or polyps at age 60 or younger: Unknown Colon or rectal CA diagnosed at age 45 or younger: Unknown Multiple relatives with colon or rectal CA: Unknown - Outcome: Screening Result: Negative Screen
--- NOTE | 2018-01-02 20:06 | PDOC ---
Attending Attestation - Resident Resident Name: Nereida Nathan - ED Attending Attestation I have performed the following: I have examined & evaluated the patient, The case was reviewed & discussed with the resident, I agree w/resident's findings & plan, Exceptions are as noted - HPI HPI: 01/02/18 20:06 52 yo ma;le with lomg h/o left foot nonhealing diabetic ulcer p/w increasing pain to the area - Physicial Exam PE: 01/02/18 20:06 wnwd 52 yo male with nonhealing diabetic ulcer to sole left foot 01/02/18 20:09 head ncat neck no jvd,supple lungs ctab/l cvs [id number] abd nontender ext on the sole of left foot there is a deep ulcer on the ball of his big toe , two left toes show some erythema,no active pururlence but +tenderness skin warm and dry neuro axox3,no gross focal neuro deficits psych appropriate - Medical Decision Making 01/02/18 20:[address] Valverde requested admission and IV antibiotics pt admitted to med/surg
[2018-01-02] MEDS: INSULIN SLIDING SCALE (NOVOLOG) 1 VIAL SQ SCH (22:00)
[2018-01-03] MEDS: PIPERACILLIN/TAZOB 3.375 GM 3.375 GM in DEXTROSE 5%-WATER - 50 ML IVPB SCH ×4 (03:05→21:59)
[2018-01-03] MEDS ORDERED: PIPERACILLIN/TAZOB 3.375 GM 3.375 GM/50 ML BAG IVPB ONE ×2 (05:45→09:50)
[2018-01-03] MEDS ORDERED: VANCOMYCIN 1 GRAM (PRE-DOCKED) 1,000 MG/250 ML BAG IVPB ONE (05:45)
[2018-01-03] MEDS: VANCOMYCIN 1 GM PREMIX - 1 GM/200 ML BAG IVPB SCH ×2 (06:02→16:45)
[2018-01-03 07:36] LABS: HEMATOCRIT 36.2 % (35.4-49); HEMOGLOBIN 12.2 GM/dL (11.7-16.9); MCH 30.2 pg (25.7-33.7); MCHC 33.9 g/dl (32.0-35.9); MEAN CELL VOLUME 89.2 fl (80-96); MEAN PLT VOLUME 10.4 fl (7.5-11.1); PLATELET COUNT 150 K/MM3 (134-434); RBC 4.06 M/mm3 (4.00-5.60); RDW 14.3 % (11.9-15.9); WHITE BLOOD COUNT 5.8 K/mm3 (4.0-10.0)
[2018-01-03 08:28] LABS: INR 3.08 (0.83-1.09); PROTHROMBIN TIME (PATIENT) 36.8 SEC (9.7-13.0)
[2018-01-03 08:42] LABS: ALBUMIN 3.6 g/dl (3.4-5.0); ALK PHOS 97 U/L (45-117); ANION GAP 8 MMOL/L (8-16); BILIRUBIN,TOTAL 0.5 mg/dL (0.2-1); BLOOD UREA NITROGEN 11 mg/dL (7-18); CHLORIDE 105 mmol/L (98-107); CO2 27 mmol/L (21-32); CREATININE 0.7 mg/dL (0.55-1.3); GLUCOSE,RANDOM 160 mg/dL (74-106); MAGNESIUM 1.8 mg/dL (1.8-2.4); PHOSPHOROUS 2.8 mg/dL (2.5-4.9); POTASSIUM 4.1 mmol/L (3.5-5.1); SGOT/AST 13 U/L (15-37); SGPT/ALT 18 U/L (13-61); SODIUM 140 mmol/L (136-145); TOT PROT 7.2 g/dl (6.4-8.2)
[2018-01-03] MEDS ORDERED: INSULIN (NOVOLOG) ASPART 100 UNITS/ML 10ML VIAL ONE ×2 (08:43→11:46)
[2018-01-03] MEDS: INSULIN SLIDING SCALE (NOVOLOG) 1 VIAL SQ SCH ×4 (09:06→22:00)
--- NOTE | 2018-01-03 11:39 | CON.ID ---
Consult Consult Specialty:: infectious diseases Reason for Consultation:: foot inefction/osteo - History of Present Illness Chief Complaint: pain and swelling of the leg and foot History of Present Illness: 52 year old male with history of Afib (on coumadin), diabetes, osteomyelitis left foot, presents with complaint of left foot pain and swelling for the past three weeks. Describes insidious onset without clear inciting event. Denies trauma. States that pain is sharp, throbbing, and occasionally feels parasthesias. Radiates up the leg to the knee. Pain is exacerbated with palpation and weight bearing. 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 . Denies fevers, chills, shortness of breath, cough, chest pain, palpitations, abdominal pain, nausea, vomiting. this patient well known to me from previous admissions who ahs been having infections of the leg and was treated for osteo with multiple surgical procedures patient continues to bear weight patient has been advised amputation - History Source History Provided By: Patient, Medical Record Limitations to Obtaining History: Language Barrier - Past Medical History Cardio/Vascular: Yes: AFIB, HTN Infectious Disease: Yes: Other (osteomyelitis) Endocrine: Yes: Diabetes Mellitus - Past Surgical History Past Surgical History: Yes: Amputation (Lt 1st toe partial amputation, Lt 4th toe amputation) - Alcohol/Substance Use Hx Alcohol Use: No - Smoking History Smoking history: Never smoked Have you smoked in the past 12 months: No Aproximately how many cigarettes per day: 0 - Social History ADL: Independent 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 Home Medications - Allergies Allergies/Adverse Reactions: Allergies Allergy/AdvReac Type Severity Reaction Status Date / Time No Known Allergies Allergy Verified 01/02/18 15:52 - Home Medications Home Medications: Ambulatory Orders RX: Metformin HCl [Glucophage] 1,000 mg PO BID 01/02/18 RX: Warfarin Sodium [Coumadin] 6 mg PO HS 01/02/18 Review of Systems - Review of Systems Constitutional: reports: No Symptoms Eyes: reports: No Symptoms HENT: reports: No Symptoms Cardiovascular: reports: No Symptoms Respiratory: reports: No Symptoms Gastrointestinal: reports: No Symptoms Musculoskeletal: reports: Other Integumentary: reports: Erythema, Other Neurological: reports: No Symptoms Endocrine: reports: No Symptoms Hematology/Lymphatic: reports: No Symptoms Psychiatric: reports: No Symptoms Physical Exam Vital Signs: Vital Signs Temperature 98.0 F 01/03/18 07:10 Pulse Rate 88 01/03/18 08:33 Respiratory Rate 16 01/03/18 08:33 Blood Pressure 94/68 01/03/18 08:33 O2 Sat by Pulse Oximetry (%) 100 01/03/18 08:33 Constitutional: Yes: Well Nourished, No Distress, Calm Eyes: Yes: Conjunctiva Clear HENT: Yes: Atraumatic, Normocephalic Neck: Yes: Supple, Trachea Midline Cardiovascular: Yes: Pulse Irregular Respiratory: Yes: Regular, CTA Bilaterally Musculoskeletal: Yes: Other Extremities: Yes: Erythema (left foot), Other Wound/Incision: Yes: Dressing Removed, Draining Neurological: Yes: Alert, Oriented Psychiatric: Yes: Alert, Oriented Labs: CBC, BMP 01/03/18 07:18 01/03/18 07:18 Imaging - Results Chest X-ray: Report Reviewed, Image Reviewed Assessment/Plan 52 y/o man with h/o a fib, DM , OM of L foot treated , s/p multiple amputations , L foot infection wound infection om afib plan cx from the wound will start patient on abx podiatry to see the patient will also discuss amputation options
[2018-01-03] MEDS ORDERED: PIPERACILLIN/TAZOBACTAM 3.375 GM VIAL IVPB ONE ×3 (12:42→20:34)
[2018-01-03] MEDS ORDERED: DEXTROSE 5%-WATER - 50 ML IVPB ONE ×3 (12:42→20:34)
[2018-01-03 14:00] VITALS: BMI 24.5
[2018-01-03] MEDS ORDERED: PT OWN MED DRAWER 7, Y5N ONE (15:33)
[2018-01-03] MEDS ORDERED: FLU VACCINE QUAD 60 MCG/0.5 ML (MDV 18-19) IM ONE (16:15)
--- NOTE | 2018-01-03 17:07 | PN ---
Physical Exam: SUBJECTIVE: Patient seen and examined at bedside today resting comfortably in exam bed. Denies acute complaints this morning. Denies fevers, chills, shortness of breath, cough, chest pain, palpitations, abdominal pain, nausea, vomiting. OBJECTIVE: Vital Signs Period Temp Pulse Resp BP Sys/Griffith Pulse Ox Last 24 Hr 97.6 F-98.9 F 68-96 16-18 94-132/68-78 96-100 GENERAL: Awake, alert, and fully oriented, in no acute distress. HEAD: Normal with no signs of trauma. EYES: Pupils equal, round and reactive to light, extraocular movements intact, sclera anicteric, conjunctiva clear. EARS, NOSE, THROAT: Oropharynx clear without exudates. Moist mucous membranes. NECK: Normal range of motion, supple without lymphadenopathy. LUNGS: Breath sounds equal, clear to auscultation bilaterally. No wheezes, and no crackles. No accessory muscle use. HEART: irregular rate and rhythm. Normal S1 and S2 without murmur, rub or gallop. ABDOMEN: Soft, nontender, not distended, normoactive bowel sounds, no guarding, no rebound, no masses. No hepatomegaly or splenomegaly. UPPER EXTREMITIES: 2+ radial pulses, warm, well-perfused. LOWER EXTREMITIES: 1+ dorsalis pedis pulses. Warm. Swollen left foot compared to right. Amputation of two toes left foot, one toe right foot. [id number] diabetic foot ulcer on plantar aspect left foot. Clean margins, no drainage noted. NEUROLOGICAL: Cranial nerves II-XII intact. Sensation intact b/l upper and lower extremities. PSYCHIATRIC: Cooperative. Appropriate mood and affect. SKIN: Discoloration over dorsal aspect left foot for past 9 months. Laboratory Results - last 24 hr 01/02/18 01/02/18 01/02/18 17:02 17:02 17:02 WBC 7.2 RBC 3.63 L Hgb 11.1 L Hct 32.4 L MCV 89.3 MCH 30.7 MCHC 34.3 RDW 14.2 Plt Count 174 MPV 10.7 Absolute Neuts (auto) 5.1 Neutrophils % 71.5 Lymphocytes % 18.3 Monocytes % 7.7 Eosinophils % 1.6 Basophils % 0.9 Nucleated RBC % 0 ESR 29 H PT with INR 38.90 H INR 3.26 H PTT (Actin FS) 44.0 H Sodium 132 L Potassium 4.0 Chloride 101 Carbon Dioxide 22 Anion Gap 9 BUN 19 H Creatinine 1.0 Creat Clearance w eGFR > 60 POC Glucometer Random Glucose 136 H Calcium 8.3 L Phosphorus Magnesium Total Bilirubin 0.2 AST 20 ALT 18 Alkaline Phosphatase 103 C-Reactive Protein 1.7 H Total Protein 7.1 Albumin 3.6 Digoxin 01/02/18 01/03/18 01/03/18 17:02 07:18 07:18 WBC 5.8 RBC 4.06 Hgb 12.2 Hct 36.2 MCV 89.2 MCH 30.2 MCHC 33.9 RDW 14.3 Plt Count 150 MPV 10.4 Absolute Neuts (auto) Neutrophils % Lymphocytes % Monocytes % Eosinophils % Basophils % Nucleated RBC % ESR PT with INR 36.80 H INR 3.08 H PTT (Actin FS) Sodium Potassium Chloride Carbon Dioxide Anion Gap BUN Creatinine Creat Clearance w eGFR POC Glucometer Random Glucose Calcium Phosphorus Magnesium Total Bilirubin AST ALT Alkaline Phosphatase C-Reactive Protein Total Protein Albumin Digoxin 0.07 L 01/03/18 01/03/18 01/03/18 07:18 08:00 11:39 WBC RBC Hgb Hct MCV MCH MCHC RDW Plt Count MPV Absolute Neuts (auto) Neutrophils % Lymphocytes % Monocytes % Eosinophils % Basophils % Nucleated RBC % ESR PT with INR INR PTT (Actin FS) Sodium 140 Potassium 4.1 Chloride 105 Carbon Dioxide 27 Anion Gap 8 BUN 11 Creatinine 0.7 Creat Clearance w eGFR > 60 POC Glucometer [phone] Random Glucose 160 H Calcium 9.0 Phosphorus 2.8 Magnesium 1.8 Total Bilirubin 0.5 AST 13 L ALT 18 Alkaline Phosphatase 97 C-Reactive Protein Total Protein 7.2 Albumin 3.6 Digoxin Active Medications Generic Name Dose Route Start Last Admin Trade Name Freq PRN Reason Stop Dose Admin Vancomycin HCl 1 gm in 200 mls @ 133.333 mls/hr 01/02/18 17:30 01/03/18 16:45 Vancomycin 1 Gm Premix - IVPB 133.333 mls/hr Q12H TOSHIA Administration Piperacillin Sod/Tazobactam 50 mls @ 100 mls/hr 01/02/18 17:30 01/03/18 14:31 Sod 3.375 gm/ Dextrose IVPB 100 mls/hr Q6H-IV TOSHIA Administration Insulin Aspart 1 vial 01/02/18 22:00 01/03/18 16:45 Novolog Vial Sliding Scale - SQ 2 units ACHS TOSHIA Administration Protocol Warfarin Sodium 2 mg 01/03/18 18:00 Coumadin - PO 01/03/18 18:01 ONCE@1800 ONE ASSESSMENT/PLAN: Patient is a 52 year old male with history of Afib (on Coumadin), diabetes, diabetic foot ulcer, and osteomyelitis of left foot presents with complaint of left foot pain and swelling for the past three weeks. Cellulitis left lower extremity -Left lower extremity is warm, swollen, chronic discoloration along dorsal aspect -Vancomycin 1gram Q12H (day 2) -Zosyn 3.375 grams Q6H (day 2) -F/U ID consult (Dr. Rodney) -F/U podiatry consult (Dr. Alvarado) -F/U wound culture -pending preliminary read -F/U blood culture -pending preliminary read Afib -INR supratherapeutic at 3.08 -2mg Coumadin once tonight -Digoxin level 0.07 -F/U PT/INR Diabetes -Hold Metformin -ISS -BGM FEN -No IV fluids. Encourage judicious oral hydration. -Will follow CMP -Diabetic diet Prophylaxis -On Coumadin for Afib Disposition -Admit to medical-surgical floor for IV antibiotics Visit type - Emergency Visit Emergency Visit: Yes ED Registration Date: 01/02/18 Care time: The patient presented to the Emergency Department on the above date and was hospitalized for further evaluation of their emergent condition. - New Patient This patient is new to me today: No - Critical Care Critical Care patient: No - Discharge Referral Referred to [facility] Med P.C.: No
[2018-01-03] MEDS ORDERED: WARFARIN NA 2 MG TABLET (UD) PO ONE (18:00)
--- NOTE | 2018-01-03 19:59 | PN ---
Teaching Attending Note Name of Resident: Urbano Wu ATTENDING PHYSICIAN STATEMENT I saw and evaluated the patient. I reviewed the resident's note and discussed the case with the resident. I agree with the resident's findings and plan as documented. SUBJECTIVE: Patient is comfortable with no acute distress, no fever or chills. OBJECTIVE: Vital Signs Temperature 97.9 F 01/03/18 18:44 Pulse Rate 100 H 01/03/18 18:44 Respiratory Rate 18 01/03/18 18:44 Blood Pressure 119/79 01/03/18 18:44 O2 Sat by Pulse Oximetry (%) 100 01/03/18 14:07 PHYSICAL EXAMINATION GENERAL: The patient is awake, alert, and fully oriented, in no acute distress. LUNGS: Breath sounds equal, clear to auscultation bilaterally, no wheezes, no crackles, no accessory muscle use. HEART: Regular rate and rhythm, S1, S2 ABDOMEN: Soft, nontender, nondistended EXTREMITIES: 2+ pulses, warm, well-perfused, no edema. left foot NEUROLOGICAL: Cranial nerves II through XII grossly intact. Normal speech. CBCD WBC 5.8 K/mm3 (4.0-10.0) 01/03/18 07:18 RBC 4.06 M/mm3 (4.00-5.60) 01/03/18 07:18 Hgb 12.2 GM/dL (11.7-16.9) 01/03/18 07:18 Hct 36.2 % (35.4-49) 01/03/18 07:18 MCV 89.2 fl (80-96) 01/03/18 07:18 MCHC 33.9 g/dl (32.0-35.9) 01/03/18 07:18 RDW 14.3 % (11.9-15.9) 01/03/18 07:18 Plt Count 150 K/MM3 (134-434) 01/03/18 07:18 MPV 10.4 fl (7.5-11.1) 01/03/18 07:18 CMP Sodium 140 mmol/L (136-145) 01/03/18 07:18 Potassium 4.1 mmol/L (3.5-5.1) 01/03/18 07:18 Chloride 105 mmol/L (98-107) 01/03/18 07:18 Carbon Dioxide 27 mmol/L (21-32) 01/03/18 07:18 Anion Gap 8 MMOL/L (8-16) 01/03/18 07:18 BUN 11 mg/dL (7-18) 01/03/18 07:18 Creatinine 0.7 mg/dL (0.55-1.3) 01/03/18 07:18 Creat Clearance w eGFR > 60 (>60) 01/03/18 07:18 Random Glucose 160 mg/dL (74-106) H 01/03/18 07:18 Calcium 9.0 mg/dL (8.5-10.1) 01/03/18 07:18 Total Bilirubin 0.5 mg/dL (0.2-1) 01/03/18 07:18 AST 13 U/L (15-37) L 01/03/18 07:18 ALT 18 U/L (13-61) 01/03/18 07:18 Alkaline Phosphatase 97 U/L (45-117) 01/03/18 07:18 Total Protein 7.2 g/dl (6.4-8.2) 01/03/18 07:18 Albumin 3.6 g/dl (3.4-5.0) 01/03/18 07:18 Current Medications Generic Name Dose Route Start Last Admin Trade Name Dorianq PRN Reason Stop Dose Admin Vancomycin HCl 1 gm in 200 mls @ 133.333 mls/hr 01/02/18 17:30 01/03/18 16:45 Vancomycin 1 Gm Premix - IVPB 133.333 mls/hr Q12H TOSHIA Administration Piperacillin Sod/Tazobactam 50 mls @ 100 mls/hr 01/02/18 17:30 01/03/18 14:31 Sod 3.375 gm/ Dextrose IVPB 100 mls/hr Q6H-IV TOSHIA Administration Insulin Aspart 1 vial 01/02/18 22:00 01/03/18 16:45 Novolog Vial Sliding Scale - SQ 2 units ACHS TOSHIA Administration Protocol Home Medications Medication Instructions Recorded Metformin HCl [Glucophage] 1,000 mg PO BID 01/02/18 Warfarin Sodium [Coumadin] 6 mg PO HS 01/02/18 ASSESSMENT AND PLAN: 52 year-old male with a PMH significant for atrial fibrillation (on coumadin), IDDM, osteo of left foot, s/p multiple amputations of left foot. Admitted for dizziness secondary to orthostatic hypotension. # Left foot cellulitis , Jain culture , ID consult , on Vanc and Zosyn # Permanent a.fib on Coumadin daily INR ,On coumadin 5mg po daily , will give 2mg tonight since INR is 3.26 today, continue ToprolXL #T2DM Novolog sliding scale coverage DVT prophylaxis: on coumadin Full code.
[2018-01-04] MEDS ORDERED: PIPERACILLIN/TAZOBACTAM 3.375 GM VIAL IVPB ONE ×3 (03:38→16:33)
[2018-01-04] MEDS ORDERED: DEXTROSE 5%-WATER - 50 ML IVPB ONE ×3 (03:38→16:34)
[2018-01-04] MEDS: PIPERACILLIN/TAZOB 3.375 GM 3.375 GM in DEXTROSE 5%-WATER - 50 ML IVPB SCH ×4 (03:58→21:46)
[2018-01-04] MEDS ORDERED: VANCOMYCIN 1 GRAM (PRE-DOCKED) 1,000 MG/250 ML BAG IVPB SCH (05:30)
[2018-01-04] MEDS: INSULIN SLIDING SCALE (NOVOLOG) 1 VIAL SQ SCH ×4 (06:31→21:47)
--- NOTE | 2018-01-04 07:54 | PN ---
Physical Exam: SUBJECTIVE: Patient seen and examined at bedside today. He is resting comfortably, in exam bed. Denies pain, numbness, parasthesias, weakness, or drainage of left lower extremity. Denies fevers, chills, shortness of breath, cough, chest pain, palpitations, abdominal pain, nausea, vomiting diarrhea. OBJECTIVE: Vital Signs Period Temp Pulse Resp BP Sys/Griffith Pulse Ox Last 24 Hr 97.4 F-98.9 F 68-101 16-18 94-132/66-79 99-100 GENERAL: Awake, alert, and fully oriented, in no acute distress. HEAD: Normal with no signs of trauma. EYES: Pupils equal, round and reactive to light, extraocular movements intact, sclera anicteric, conjunctiva clear. EARS, NOSE, THROAT: Oropharynx without exudates, eryrythema, lesions. Moist mucous membranes. NECK: Normal range of motion, supple without lymphadenopathy. LUNGS: Good inspiratory effort. Breath sounds equal, clear to auscultation bilaterally. No wheezes, and no crackles. No accessory muscle use. HEART: Irregular rate and rhythm. Normal S1 and S2 without murmur, rub or gallop. ABDOMEN: Soft, nontender, not distended, normoactive bowel sounds, no guarding, no rebound, no masses. No hepatomegaly or splenomegaly. UPPER EXTREMITIES: 2+ radial pulses, warm, well-perfused. LOWER EXTREMITIES: 1+ dorsalis pedis pulses. Warm. Swollen left foot compared to right. Bandage clean. Amputation of two toes left foot, one toe right foot. [id number] diabetic foot ulcer on plantar aspect left foot. Clean margins, no drainage noted. NEUROLOGICAL: Cranial nerves II-XII intact. Sensation intact b/l upper and lower extremities. PSYCHIATRIC: Cooperative. Appropriate mood and affect. SKIN: Discoloration over dorsal aspect left foot for past 9 months. Laboratory Results - last 24 hr 01/03/18 01/03/18 01/03/18 07:18 07:18 08:00 PT with INR 36.80 H INR 3.08 H Sodium 140 Potassium 4.1 Chloride 105 Carbon Dioxide 27 Anion Gap 8 BUN 11 Creatinine 0.7 Creat Clearance w eGFR > 60 POC Glucometer 157.57009 Random Glucose 160 H Calcium 9.0 Phosphorus 2.8 Magnesium 1.8 Total Bilirubin 0.5 AST 13 L ALT 18 Alkaline Phosphatase 97 Total Protein 7.2 Albumin 3.6 01/03/18 01/03/18 01/03/18 11:39 16:25 21:58 PT with INR INR Sodium Potassium Chloride Carbon Dioxide Anion Gap BUN Creatinine Creat Clearance w eGFR POC Glucometer [phone] 150 Random Glucose Calcium Phosphorus Magnesium Total Bilirubin AST ALT Alkaline Phosphatase Total Protein Albumin 01/04/18 06:30 PT with INR INR Sodium Potassium Chloride Carbon Dioxide Anion Gap BUN Creatinine Creat Clearance w eGFR POC Glucometer 183 Random Glucose Calcium Phosphorus Magnesium Total Bilirubin AST ALT Alkaline Phosphatase Total Protein Albumin Active Medications Generic Name Dose Route Start Last Admin Trade Name Freq PRN Reason Stop Dose Admin Piperacillin Sod/Tazobactam 50 mls @ 100 mls/hr 01/02/18 17:30 01/04/18 03:58 Sod 3.375 gm/ Dextrose IVPB 100 mls/hr Q6H-IV [facility] Administration Vancomycin HCl 1,000 mg in 250 mls @ 133.333 mls/hr 01/04/18 05:30 01/04/18 04:48 Vancomycin (Pre-Docked) IVPB 133.333 mls/hr Q12H [facility] Administration Insulin Aspart 1 vial 01/02/18 22:00 01/04/18 06:31 Novolog Vial Sliding Scale - SQ 4 units ACHS [facility] Administration Protocol ASSESSMENT/PLAN: Patient is a 52 year old male with history of Afib (on Coumadin), diabetes, diabetic foot ulcer, and osteomyelitis of left foot presents with complaint of left foot pain and swelling for the past three weeks. Cellulitis left lower extremity secondary to diabetic foot ulcers -Left lower extremity is warm, swollen, chronic discoloration along dorsal aspect -Vancomycin 1gram Q12H (day 3) -Zosyn 3.375 grams Q6H (day 3) -F/U ID consult (Dr. oRdney) -Podiatry consult (Dr. Alvarado) appreciated Patient is s/p excisional debridement of left foot diabetic ulcers. F/U Xray left foot Patient will consider trans-metatarsal amputation -Wound culture -preliminary read of MSSA, non lactose fermenting gram negative bacteria -Blood culture -preliminary negative for growth at 24 hours Afib -INR 2.93 -2mg Coumadin once tonight -F/U PT/INR Diabetes -Hold Metformin -ISS -BGM FEN -No IV fluids. Encourage judicious oral hydration. -Will follow CMP -Diabetic diet Prophylaxis -On Coumadin for Afib. INR therapeutic Disposition -Continue care in medical-surgical floor for IV antibiotics Visit type - Emergency Visit Emergency Visit: Yes ED Registration Date: 01/02/18 Care time: The patient presented to the Emergency Department on the above date and was hospitalized for further evaluation of their emergent condition. - New Patient This patient is new to me today: No - Critical Care Critical Care patient: No - Discharge Referral Referred to [facility] Med P.C.: No
[2018-01-04 08:10] LABS: HEMATOCRIT 39.2 % (35.4-49); MCH 29.5 pg (25.7-33.7); MEAN CELL VOLUME 89.4 fl (80-96); MEAN PLT VOLUME 10.2 fl (7.5-11.1); PLATELET COUNT 156 K/MM3 (134-434); RBC 4.39 M/mm3 (4.00-5.60); RDW 14.1 % (11.9-15.9); WHITE BLOOD COUNT 5.1 K/mm3 (4.0-10.0)
[2018-01-04 08:11] LABS: ALBUMIN 3.6 g/dl (3.4-5.0); ALK PHOS 91 U/L (45-117); ANION GAP 10 MMOL/L (8-16); BILIRUBIN,TOTAL 0.4 mg/dL (0.2-1); BLOOD UREA NITROGEN 9 mg/dL (7-18); CALCIUM 9.3 mg/dL (8.5-10.1); CHLORIDE 105 mmol/L (98-107); CO2 25 mmol/L (21-32); CREATININE 0.8 mg/dL (0.55-1.3); GLUCOSE,RANDOM 174 mg/dL (74-106); MAGNESIUM 1.9 mg/dL (1.8-2.4); PHOSPHOROUS 3.2 mg/dL (2.5-4.9); POTASSIUM 4.2 mmol/L (3.5-5.1); SGOT/AST 14 U/L (15-37); SGPT/ALT 18 U/L (13-61); SODIUM 141 mmol/L (136-145); TOT PROT 7.3 g/dl (6.4-8.2)
--- NOTE | 2018-01-04 08:23 | PN ---
Teaching Attending Note Name of Resident: Urbano Wu ATTENDING PHYSICIAN STATEMENT I saw and evaluated the patient. I reviewed the resident's note and discussed the case with the resident. I agree with the resident's findings and plan as documented. SUBJECTIVE: Patient is better with no acute distress. No fever or chills. OBJECTIVE: Vital Signs Temperature 98.5 F 01/04/18 05:35 Pulse Rate 101 H 01/04/18 05:35 Respiratory Rate 18 01/04/18 05:35 Blood Pressure 110/72 01/04/18 05:35 O2 Sat by Pulse Oximetry (%) 100 01/03/18 21:00 GENERAL: The patient is awake, alert, and fully oriented, in no acute distress. LUNGS: Breath sounds equal, clear to auscultation bilaterally, no wheezes, no crackles, no accessory muscle use. HEART: Regular rate and rhythm, S1, S2 ABDOMEN: Soft, nontender, nondistended EXTREMITIES: 2+ pulses, warm, well-perfused, no edema. left foot wrapped s/p debridment as per NEUROLOGICAL: Cranial nerves II through XII grossly intact. Normal speech CBCD WBC 5.1 K/mm3 (4.0-10.0) 01/04/18 06:30 RBC 4.39 M/mm3 (4.00-5.60) 01/04/18 06:30 Hgb 13.0 GM/dL (11.7-16.9) 01/04/18 06:30 Hct 39.2 % (35.4-49) 01/04/18 06:30 MCV 89.4 fl (80-96) 01/04/18 06:30 MCHC 33.0 g/dl (32.0-35.9) 01/04/18 06:30 RDW 14.1 % (11.9-15.9) 01/04/18 06:30 Plt Count 156 K/MM3 (134-434) 01/04/18 06:30 MPV 10.2 fl (7.5-11.1) 01/04/18 06:30 CMP Sodium 141 mmol/L (136-145) 01/04/18 06:30 Potassium 4.2 mmol/L (3.5-5.1) 01/04/18 06:30 Chloride 105 mmol/L (98-107) 01/04/18 06:30 Carbon Dioxide 25 mmol/L (21-32) 01/04/18 06:30 Anion Gap 10 MMOL/L (8-16) 01/04/18 06:30 BUN 9 mg/dL (7-18) 01/04/18 06:30 Creatinine 0.8 mg/dL (0.55-1.3) 01/04/18 06:30 Creat Clearance w eGFR > 60 (>60) 01/04/18 06:30 Random Glucose 174 mg/dL (74-106) H 01/04/18 06:30 Calcium 9.3 mg/dL (8.5-10.1) 01/04/18 06:30 Total Bilirubin 0.4 mg/dL (0.2-1) 01/04/18 06:30 AST 14 U/L (15-37) L 01/04/18 06:30 ALT 18 U/L (13-61) 01/04/18 06:30 Alkaline Phosphatase 91 U/L (45-117) 01/04/18 06:30 Total Protein 7.3 g/dl (6.4-8.2) 01/04/18 06:30 Albumin 3.6 g/dl (3.4-5.0) 01/04/18 06:30 Current Medications Generic Name Dose Route Start Last Admin Trade Name Dorianq PRN Reason Stop Dose Admin Piperacillin Sod/Tazobactam 50 mls @ 100 mls/hr 01/02/18 17:30 01/04/18 03:58 Sod 3.375 gm/ Dextrose IVPB 100 mls/hr Q6H-IV [facility] Administration Vancomycin HCl 1,000 mg in 250 mls @ 133.333 mls/hr 01/04/18 05:30 01/04/18 04:48 Vancomycin (Pre-Docked) IVPB 133.333 mls/hr Q12H [facility] Administration Insulin Aspart 1 vial 01/02/18 22:00 01/04/18 06:31 Novolog Vial Sliding Scale - SQ 4 units ACHS [facility] Administration Protocol Home Medications Medication Instructions Recorded Metformin HCl [Glucophage] 1,000 mg PO BID 01/02/18 Warfarin Sodium [Coumadin] 6 mg PO HS 01/02/18 Microbiology 01/02/18 21:25 Blood - Peripheral Venous Blood Culture - Preliminary NO GROWTH OBTAINED AFTER 24 HOURS, INCUBATION TO CONTINUE FOR 4 DAYS. 01/02/18 21:20 Blood - Peripheral Venous Blood Culture - Preliminary NO GROWTH OBTAINED AFTER 24 HOURS, INCUBATION TO CONTINUE FOR 4 DAYS. 01/02/18 16:45 Foot - Left Plantar Gram Stain - Final Laboratory Tests 01/02/18 01/03/18 01/04/18 17:02 07:18 06:30 INR 3.26 H 3.08 H 2.93 H ASSESSMENT AND PLAN: Patient is a 52 year-old male with a PMHx significant for atrial fibrillation ( on coumadin), IDDM, osteo of left foot, s/p multiple amputations of left foot. Admitted for dizziness secondary to orthostatic hypotension. # Left foot cellulitis, Cx no growth so far , ID consult , on IV Vanc and Zosyn continue, S/P excisional debridement of left foot diabetic ulcers to subcutaneous tissue. New wound culture obtained, follow Cx. # Permanent a.fib on Coumadin daily INR ,On coumadin 5mg at home, we are dosing on a daily basis, will give 2mg tonight since INR is 3.26-->2.93 today, continue ToprolXL #T2DM Novolog sliding scale coverage DVT prophylaxis: on coumadin Full code.
--- NOTE | 2018-01-04 08:46 | PN ---
Progress Note, Physician History of Present Illness: stable no new issues - Current Medication List Current Medications: Active Medications Piperacillin Sod/Tazobactam (Sod 3.375 gm/ Dextrose) 50 mls @ 100 mls/hr IVPB Q6H-IV TOSHIA Last Admin: 01/04/18 08:41 Dose: 100 mls/hr Insulin Aspart (Novolog Vial Sliding Scale -) 1 vial SQ ACHS [facility]; Protocol Last Admin: 01/04/18 06:31 Dose: 4 units - Objective Vital Signs: Vital Signs Temperature 97.8 F 01/04/18 08:44 Pulse Rate 87 01/04/18 08:44 Respiratory Rate 18 01/04/18 08:44 Blood Pressure 100/69 01/04/18 08:44 O2 Sat by Pulse Oximetry (%) 100 01/03/18 21:00 Constitutional: Yes: No Distress, Calm Cardiovascular: Yes: Regular Rate and Rhythm Respiratory: Yes: Regular, CTA Bilaterally Gastrointestinal: Yes: Normal Bowel Sounds, Soft Musculoskeletal: Yes: WNL Extremities: Yes: Other Neurological: Yes: Alert, Oriented Psychiatric: Yes: Alert, Oriented Labs: CBC, BMP 01/04/18 06:30 01/04/18 06:30 INR, PTT INR 3.08 (0.83-1.09) H 01/03/18 07:18 Assessment/Plan 52 y/o man with h/o a fib, DM , OM of L foot treated , s/p multiple amputations , L foot infection wound infection om afib plan plan for amputation await for cx reports wound care final plan awaited rest as per the team
[2018-01-04 09:00] LABS: INR 2.93 (0.83-1.09); PROTHROMBIN TIME (PATIENT) 34.9 SEC (9.7-13.0)
--- NOTE | 2018-01-04 10:34 | CONSULT ---
Consult - text type - Consultation Consultation Note: Podiatry Consultation: 52 year old diabetic M well known to me from prior admissions, presents with drainage, increased pain to the left foot. Patient has history of multiple amputations bilateral feet secondary to diabetic neuropathy and diabetic infections. I had seen him in the wound healing center about 2 months prior in which he healed the left foot ulcers. Notes recurrence even though he states he does not work currently. Does have trouble minimizing weightbearing activity. PMHx: DM, HTN, Afib on AC Meds: noted ALL: NKMA WILLIAM: L foot: pedal pulses palpable, TG wnl. Sub-first and fourth metatarsal diabetic ulcers, fibrogranular bases with hyperkeratotic borders, do not probe to bone, mild purulence from sub-first metatarsal diabetic ulcer, no soft tissue crepitus , no periwound erythema, no streaking cellulitis, no signs of acute infection. Mild tenderness to palpation. WBC: 5.1 ESR: 29 Wound Cx: pending Imp: 52 year old DM with left foot diabetic ulcers 1. After informed consent obtained, excisional debridement of left foot diabetic ulcers to subcutaneous tissue using sterile #15 blade scalpel and forceps. Patient tolerated the procedure well without complications. New wound culture obtained. 2. Recommend xray L foot to check for erosive changes compared to last xray. 3. Discussed with patient risk for further wound breakdown, and definitive tx at this point would be TMA. He wants to think about it for now. 4. Will follow. Thank you for the courtesy of this consultation. Jimmie Alvarado DPM
--- NOTE | 2018-01-04 10:47 | EKG ---
Test Reason : Blood Pressure : / mmHG Vent. Rate : 103 BPM Atrial Rate : 117 BPM P-R Int : 000 ms QRS Dur : 086 ms QT Int : 266 ms P-R-T Axes : 000 -15 003 degrees QTc Int : 348 ms ATRIAL FIBRILLATION WITH RAPID VENTRICULAR RESPONSE ABNORMAL ECG WHEN COMPARED WITH ECG OF 26-NOV-2017 18:34, NO SIGNIFICANT CHANGE WAS FOUND Confirmed by Jamaal Collier MD ([id number]) on 01/04/2018 10:47:18 AM Referred By: Confirmed By:Jamaal Collier MD
[2018-01-04] MEDS ORDERED: WARFARIN NA 2 MG TABLET (UD) PO ONE (18:00)
[2018-01-05] MEDS: PIPERACILLIN/TAZOB 3.375 GM 3.375 GM in DEXTROSE 5%-WATER - 50 ML IVPB SCH ×4 (03:07→22:54)
[2018-01-05] MEDS: INSULIN SLIDING SCALE (NOVOLOG) 1 VIAL SQ SCH ×4 (06:11→22:54)
[2018-01-05 08:00] LABS: INR 2.34 (0.83-1.09); PROTHROMBIN TIME (PATIENT) 27.9 SEC (9.7-13.0)
[2018-01-05 08:12] LABS: HEMOGLOBIN 13.5 GM/dL (11.7-16.9); MCH 30.3 pg (25.7-33.7); MCHC 33.7 g/dl (32.0-35.9); MEAN CELL VOLUME 89.8 fl (80-96); MEAN PLT VOLUME 10.6 fl (7.5-11.1); PLATELET COUNT 200 K/MM3 (134-434); RBC 4.45 M/mm3 (4.00-5.60); RDW 13.8 % (11.9-15.9); WHITE BLOOD COUNT 6.3 K/mm3 (4.0-10.0)
[2018-01-05 08:13] LABS: ALBUMIN 3.7 g/dl (3.4-5.0); ALK PHOS 94 U/L (45-117); ANION GAP 12 MMOL/L (8-16); BILIRUBIN,TOTAL 0.3 mg/dL (0.2-1); BLOOD UREA NITROGEN 15 mg/dL (7-18); CALCIUM 8.9 mg/dL (8.5-10.1); CHLORIDE 106 mmol/L (98-107); CO2 24 mmol/L (21-32); CREATININE 0.7 mg/dL (0.55-1.3); GLUCOSE,RANDOM 137 mg/dL (74-106); POTASSIUM 4.2 mmol/L (3.5-5.1); SGOT/AST 15 U/L (15-37); SGPT/ALT 19 U/L (13-61); SODIUM 142 mmol/L (136-145); TOT PROT 7.7 g/dl (6.4-8.2)
[2018-01-05] MEDS ORDERED: PIPERACILLIN/TAZOBACTAM 3.375 GM VIAL IVPB ONE ×3 (09:03→21:38)
[2018-01-05] MEDS ORDERED: DEXTROSE 5%-WATER - 50 ML IVPB ONE ×3 (09:03→21:38)
--- NOTE | 2018-01-05 09:34 | PN ---
Progress Note (short form) - Note Progress Note: Podiatry: Seen/evaluated at bedside NAD. Pain controlled, denies F/V/N/C/SOB/CP. Afebrile. WILLIAM: L foot: stable sub-metatarsal diabetic ulcers mostly granular base, no purulence , no fluctuance, no streaking cellulitis, no signs of infection ESR: 29 WBC: 6.3 Wound Cx: GNB, MSSA L foot XR: chronic osteo changes forefoot Imp: 52 year old DM M diabetic ulcers, chronic osteomyelitis L foot 1. IV abx per ID 2. Discussed tx options with patient, namely TMA to make foot more biomechanically sound. I will discuss with patient's brother prior to him making a decision. Will be on standby for any operative management for now. Jimmie Alvarado DPM
--- NOTE | 2018-01-05 12:22 | PN ---
Progress Note, Physician History of Present Illness: stable no new issues podiatry - Current Medication List Current Medications: Active Medications Piperacillin Sod/Tazobactam (Sod 3.375 gm/ Dextrose) 50 mls @ 100 mls/hr IVPB Q6H-IV TOSHIA Last Admin: 01/05/18 09:09 Dose: 100 mls/hr Insulin Aspart (Novolog Vial Sliding Scale -) 1 vial SQ ACHS [facility]; Protocol Last Admin: 01/05/18 11:56 Dose: Not Given - Objective Vital Signs: Vital Signs Temperature 97.6 F 01/05/18 10:00 Pulse Rate 102 H 01/05/18 10:00 Respiratory Rate 18 01/05/18 10:00 Blood Pressure 101/67 01/05/18 10:00 O2 Sat by Pulse Oximetry (%) 100 01/05/18 10:00 Constitutional: Yes: No Distress, Calm Cardiovascular: Yes: Pulse Irregular Respiratory: Yes: Regular, CTA Bilaterally Gastrointestinal: Yes: Normal Bowel Sounds, Soft Musculoskeletal: Yes: WNL Extremities: Yes: Other Neurological: Yes: Alert, Oriented Psychiatric: Yes: Alert, Oriented Labs: CBC, BMP 01/05/18 06:25 01/05/18 06:25 INR, PTT INR 2.34 (0.83-1.09) H 01/05/18 06:25 Assessment/Plan 52 y/o man with h/o a fib, DM , OM of L foot treated , s/p multiple amputations , L foot infection wound infection om afib plan plan for amputation await for cx reports wound care final plan awaited rest as per the team
[2018-01-05] MEDS ORDERED: INSULIN (NOVOLOG) ASPART 100 UNITS/ML 10ML VIAL ONE (17:00)
[2018-01-05] MEDS ORDERED: WARFARIN NA 2 MG TABLET (UD) PO ONE (18:00)
--- NOTE | 2018-01-05 19:50 | PN ---
Teaching Attending Note Name of Resident: Urbano Wu ATTENDING PHYSICIAN STATEMENT I saw and evaluated the patient. I reviewed the resident's note and discussed the case with the resident. I agree with the resident's findings and plan as documented. SUBJECTIVE: No fever or chills . no pain OBJECTIVE: NAD CV : RRR Lungs: CTAB Ext : L foot with s/p 1st and 4th toes amputation . ulcers on plantar surface of 1st and 4th metatarsals. 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
--- NOTE | 2018-01-05 20:02 | PN ---
Physical Exam: SUBJECTIVE: Patient seen and examined at bedside today. He is resting comfortably, in exam bed. He is s/p debridement of left foot ulcer with Dr. Alvarado. Denies pain, numbness, parasthesias, weakness, or drainage of left lower extremity. Denies fevers, chills, shortness of breath, cough, chest pain, palpitations, abdominal pain, nausea, vomiting diarrhea. OBJECTIVE: Vital Signs Period Temp Pulse Resp BP Sys/Griffith Pulse Ox Last 24 Hr 97.6 F-98.3 F 91-112 18-20 91-101/59-70 100-100 GENERAL: Awake, alert, and fully oriented, in no acute distress. HEAD: Normal with no signs of trauma. EYES: Pupils equal, round and reactive to light, extraocular movements intact, sclera anicteric, conjunctiva clear. EARS, NOSE, THROAT: Oropharynx without exudates, eryrythema, lesions. Moist mucous membranes. NECK: Normal range of motion, supple without lymphadenopathy. LUNGS: Good inspiratory effort. Breath sounds equal, clear to auscultation bilaterally. No wheezes, and no crackles. No accessory muscle use. HEART: Irregular rate and rhythm. Normal S1 and S2 without murmur, rub or gallop. ABDOMEN: Soft, nontender, not distended, normoactive bowel sounds, no guarding, no rebound, no masses. No hepatomegaly or splenomegaly. UPPER EXTREMITIES: 2+ radial pulses, warm, well-perfused. LOWER EXTREMITIES: 1+ dorsalis pedis pulses. Warm. Swollen left foot compared to right. Bandage clean. Amputation of two toes left foot, one toe right foot. [id number] diabetic foot ulcer on plantar aspect left foot. Clean margins, no drainage noted. NEUROLOGICAL: Cranial nerves II-XII intact. Sensation intact b/l upper and lower extremities. PSYCHIATRIC: Cooperative. Appropriate mood and affect. SKIN: Discoloration over dorsal aspect left foot for past 9 months. Laboratory Results - last 24 hr 01/04/18 01/05/18 01/05/18 21:43 06:10 06:25 WBC 6.3 RBC 4.45 Hgb 13.5 Hct 40.0 MCV 89.8 MCH 30.3 MCHC 33.7 RDW 13.8 Plt Count 200 D MPV 10.6 PT with INR INR Sodium Potassium Chloride Carbon Dioxide Anion Gap BUN Creatinine Creat Clearance w eGFR POC Glucometer 163 169 Random Glucose Calcium Total Bilirubin AST ALT Alkaline Phosphatase Total Protein Albumin 01/05/18 01/05/18 01/05/18 06:25 06:25 11:55 WBC RBC Hgb Hct MCV MCH MCHC RDW Plt Count MPV PT with INR 27.90 H INR 2.34 H Sodium 142 Potassium 4.2 Chloride 106 Carbon Dioxide 24 Anion Gap 12 BUN 15 Creatinine 0.7 Creat Clearance w eGFR > 60 POC Glucometer 95 Random Glucose 137 H Calcium 8.9 Total Bilirubin 0.3 AST 15 ALT 19 Alkaline Phosphatase 94 Total Protein 7.7 Albumin 3.7 01/05/18 16:48 WBC RBC Hgb Hct MCV MCH MCHC RDW Plt Count MPV PT with INR INR Sodium Potassium Chloride Carbon Dioxide Anion Gap BUN Creatinine Creat Clearance w eGFR POC Glucometer 186 Random Glucose Calcium Total Bilirubin AST ALT Alkaline Phosphatase Total Protein Albumin Active Medications Generic Name Dose Route Start Last Admin Trade Name Freq PRN Reason Stop Dose Admin Piperacillin Sod/Tazobactam 50 mls @ 100 mls/hr 01/02/18 17:30 01/05/18 14:57 Sod 3.375 gm/ Dextrose IVPB 100 mls/hr Q6H-IV TOSHIA Administration Insulin Aspart 1 vial 01/02/18 22:00 01/05/18 17:22 Novolog Vial Sliding Scale - SQ 4 units ACHS [facility] Administration Protocol ASSESSMENT/PLAN: Patient is a 52 year old male with history of Afib (on Coumadin), diabetes, diabetic foot ulcer, and osteomyelitis of left foot presents with complaint of left foot pain and swelling for the past three weeks. Cellulitis left lower extremity secondary to diabetic foot ulcers -Left lower extremity is warm, swollen, chronic discoloration along dorsal aspect, with ?new fluctuance along dorsal aspect foot -Zosyn 3.375 grams Q6H (day 4) -ID consult (Dr. Rodney) appreciated. -Podiatry consult (Dr. Alvarado) appreciated. -Patient is s/p excisional debridement of left foot diabetic ulcers. -Xray left foot not revealing for osteomyelitis. -F/U MRI of foot without contrast to rule out abscess or osteomyelitis. -Patient will consider trans-metatarsal amputation. Will discuss with brother. -Wound culture -preliminary read of MSSA, Enterobacter cloacae -Blood culture -preliminary negative for growth at48 hours Afib -INR 2.34 -4mg Coumadin once tonight -F/U PT/INR Diabetes -Hold Metformin -ISS -BGM FEN -No IV fluids. Encourage judicious oral hydration. -Will follow CMP -Diabetic diet Prophylaxis -On Coumadin for Afib. INR therapeutic Disposition -Continue care in medical-surgical floor for IV antibiotics Visit type - Emergency Visit Emergency Visit: Yes ED Registration Date: 01/02/18 Care time: The patient presented to the Emergency Department on the above date and was hospitalized for further evaluation of their emergent condition. - New Patient This patient is new to me today: No - Critical Care Critical Care patient: No - Discharge Referral Referred to [facility] Med P.C.: No
[2018-01-06] MEDS ORDERED: PIPERACILLIN/TAZOBACTAM 3.375 GM VIAL IVPB ONE ×4 (01:07→20:52)
[2018-01-06] MEDS ORDERED: DEXTROSE 5%-WATER - 50 ML IVPB ONE ×4 (01:07→20:52)
[2018-01-06] MEDS: PIPERACILLIN/TAZOB 3.375 GM 3.375 GM in DEXTROSE 5%-WATER - 50 ML IVPB SCH ×4 (02:20→21:12)
[2018-01-06] MEDS: INSULIN SLIDING SCALE (NOVOLOG) 1 VIAL SQ SCH ×4 (06:17→21:26)
[2018-01-06 07:26] LABS: HEMATOCRIT 38.2 % (35.4-49); HEMOGLOBIN 12.9 GM/dL (11.7-16.9); MCH 30.3 pg (25.7-33.7); MCHC 33.8 g/dl (32.0-35.9); MEAN CELL VOLUME 89.7 fl (80-96); MEAN PLT VOLUME 10.3 fl (7.5-11.1); PLATELET COUNT 179 K/MM3 (134-434); RBC 4.26 M/mm3 (4.00-5.60); RDW 14.2 % (11.9-15.9)
[2018-01-06 08:01] LABS: ANION GAP 8 MMOL/L (8-16); BLOOD UREA NITROGEN 18 mg/dL (7-18); CALCIUM 8.5 mg/dL (8.5-10.1); CHLORIDE 106 mmol/L (98-107); CO2 26 mmol/L (21-32); CREATININE 0.9 mg/dL (0.55-1.3); GLUCOSE,RANDOM 152 mg/dL (74-106); POTASSIUM 4.4 mmol/L (3.5-5.1); SODIUM 139 mmol/L (136-145)
[2018-01-06] MEDS ORDERED: PT OWN MED DRAWER 7, Y5N ONE ×3 (08:29→10:37)
[2018-01-06 09:13] LABS: INR 1.89 (0.83-1.09); PROTHROMBIN TIME (PATIENT) 22.4 SEC (9.7-13.0)
[2018-01-06] MEDS ORDERED: INSULIN (NOVOLOG) ASPART 100 UNITS/ML 10ML VIAL ONE ×2 (12:37→20:52)
--- NOTE | 2018-01-06 13:48 | PN ---
Progress Note, Physician History of Present Illness: stable no new issues podiatry plan and patient plan awaited probably need amputation - Current Medication List Current Medications: Active Medications Piperacillin Sod/Tazobactam (Sod 3.375 gm/ Dextrose) 50 mls @ 100 mls/hr IVPB Q6H-IV TOSHIA Last Admin: 01/06/18 10:14 Dose: 100 mls/hr Insulin Aspart (Novolog Vial Sliding Scale -) 1 vial SQ ACHS [facility]; Protocol Last Admin: 01/06/18 12:39 Dose: 6 units Warfarin Sodium (Coumadin -) 4 mg PO ONCE@1800 ONE Stop: 01/06/18 18:01 - Objective Vital Signs: Vital Signs Temperature 98 F 01/06/18 09:14 Pulse Rate 101 H 01/06/18 09:14 Respiratory Rate 18 01/06/18 09:14 Blood Pressure 101/64 01/06/18 09:14 O2 Sat by Pulse Oximetry (%) 98 01/06/18 09:00 Constitutional: Yes: No Distress, Calm Cardiovascular: Yes: Pulse Irregular Respiratory: Yes: Regular, CTA Bilaterally Gastrointestinal: Yes: Normal Bowel Sounds, Soft Musculoskeletal: Yes: WNL Extremities: Yes: Other Neurological: Yes: Alert, Oriented Psychiatric: Yes: Alert, Oriented Labs: CBC, BMP 01/06/18 06:24 01/06/18 06:24 INR, PTT INR 1.89 (0.83-1.09) H 01/06/18 06:24 Assessment/Plan 52 y/o man with h/o a fib, DM , OM of L foot treated , s/p multiple amputations , L foot infection wound infection om afib plan plan for amputation cx report noted wound care final plan awaited rest as per the team
--- NOTE | 2018-01-06 13:52 | PN ---
Teaching Attending Note Name of Resident: Urbano Wu ATTENDING PHYSICIAN STATEMENT I saw and evaluated the patient. I reviewed the resident's note and discussed the case with the resident. I agree with the resident's findings and plan as documented. SUBJECTIVE: No fever or chills . no pain in foot OBJECTIVE: NAD CV : RRR Lungs: CTAB Ext : L foot with s/p 1st and 4th toes amputation . ulcers on plantar surface of 1st and 4th metatarsals. fluctuance and discoloration . R foot with 3rd toe amputation . calluses , no open ulcers . DP 2+ b/l . ASSESSMENT AND PLAN: 52 y/o man with h/o a fib, DM , OM of L foot , s/p multiple amputations , who is being treated for foot infection 2- L foot diabetic ulcer and chronic OM: - MRI form 09/20 reviewed, OM in 1st and 4th metatarsal heads . s/p debridment and metatarsal head resection 10/20 . path with no OM . this was d/w with Dr. Alvarado. - MRI of foot - cont zosyn for now - decision on amputation to be determined 2- A fib: give 4 mg of coumadin today again . INR 1.8 - cont toprol 3- DM : SSI dispo: plan depends on surgical procedure . if paint agrees to surgery , it will happen next week . 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
[2018-01-06] MEDS ORDERED: HEPARIN NA (PORCINE) 5,000 UNITS/ML 1ML VIAL SQ SCH (14:00)
--- NOTE | 2018-01-06 17:56 | PN ---
Physical Exam: SUBJECTIVE: Patient seen and examined at bedside this morning. He denies any acute complaints overnight. Denies pain, numbness, parasthesias, weakness, or drainage of left lower extremity. Denies fevers, chills, shortness of breath, cough, chest pain, palpitations, abdominal pain, nausea, vomiting diarrhea. He is still thinking about the surgery, and would like to discuss with his brother. 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 Discussed benefits and risks of transmetatarsal amputaiton. OBJECTIVE: Vital Signs Period Temp Pulse Resp BP Sys/Griffith Pulse Ox Last 24 Hr 97.7 F-98.3 F 94-112 18-20 91-119/64-73 98-98 GENERAL: Awake, alert, and fully oriented, in no acute distress. HEAD: Normal with no signs of trauma. EYES: Pupils equal, round and reactive to light, extraocular movements intact, sclera anicteric, conjunctiva clear. EARS, NOSE, THROAT: Oropharynx without exudates, eryrythema, lesions. Moist mucous membranes. NECK: Normal range of motion, supple without lymphadenopathy. LUNGS: Good inspiratory effort. Breath sounds equal, clear to auscultation bilaterally. No wheezes, and no crackles. No accessory muscle use. HEART: Irregular rate and rhythm. Normal S1 and S2 without murmur, rub or gallop. ABDOMEN: Soft, nontender, not distended, normoactive bowel sounds, no guarding, no rebound, no masses. No hepatomegaly or splenomegaly. UPPER EXTREMITIES: 2+ radial pulses, warm, well-perfused. LOWER EXTREMITIES: 1+ dorsalis pedis pulses. Warm. Swollen left foot compared to right. Bandage clean. Amputation of two toes left foot, one toe right foot. [id number] diabetic foot ulcer on plantar aspect left foot. Clean margins, no drainage noted. NEUROLOGICAL: Cranial nerves II-XII intact. Sensation intact b/l upper and lower extremities. PSYCHIATRIC: Cooperative. Appropriate mood and affect. SKIN: Discoloration over dorsal aspect left foot for past 9 months. Laboratory Results - last 24 hr 01/05/18 01/06/18 01/06/18 22:54 05:47 06:24 WBC 6.0 RBC 4.26 Hgb 12.9 Hct 38.2 MCV 89.7 MCH 30.3 MCHC 33.8 RDW 14.2 Plt Count 179 MPV 10.3 PT with INR INR Sodium Potassium Chloride Carbon Dioxide Anion Gap BUN Creatinine Creat Clearance w eGFR POC Glucometer 143 166 Random Glucose Calcium 01/06/18 01/06/18 01/06/18 06:24 06:24 12:33 WBC RBC Hgb Hct MCV MCH MCHC RDW Plt Count MPV PT with INR 22.40 H INR 1.89 H Sodium 139 Potassium 4.4 Chloride 106 Carbon Dioxide 26 Anion Gap 8 BUN 18 Creatinine 0.9 Creat Clearance w eGFR > 60 POC Glucometer 221 Random Glucose 152 H Calcium 8.5 01/06/18 17:11 WBC RBC Hgb Hct MCV MCH MCHC RDW Plt Count MPV PT with INR INR Sodium Potassium Chloride Carbon Dioxide Anion Gap BUN Creatinine Creat Clearance w eGFR POC Glucometer 159 Random Glucose Calcium Active Medications Generic Name Dose Route Start Last Admin Trade Name Freq PRN Reason Stop Dose Admin Piperacillin Sod/Tazobactam 50 mls @ 100 mls/hr 01/02/18 17:30 01/06/18 16:46 Sod 3.375 gm/ Dextrose IVPB 100 mls/hr Q6H-IV TOSHIA Administration Insulin Aspart 1 vial 01/02/18 22:00 01/06/18 17:11 Novolog Vial Sliding Scale - SQ 2 units ACHS TOSHIA Administration Protocol Warfarin Sodium 4 mg 01/06/18 18:00 01/06/18 17:09 Coumadin - PO 01/06/18 18:01 4 mg ONCE@1800 ONE Administration ASSESSMENT/PLAN: Patient is a 52 year old male with history of Afib (on Coumadin), diabetes, diabetic foot ulcer, and osteomyelitis of left foot presents with complaint of left foot pain and swelling for the past three weeks. Cellulitis left lower extremity secondary to diabetic foot ulcers -Left lower extremity is warm, swollen, chronic discoloration along dorsal aspect, with some fluctuance along dorsal aspect foot -Zosyn 3.375 grams Q6H (day 5) -ID consult (Dr. Rodney) appreciated. -Podiatry consult (Dr. Alvarado) appreciated. -Patient is s/p excisional debridement of left foot diabetic ulcers. -Xray left foot not revealing for osteomyelitis. -F/U MRI of foot without contrast to rule out abscess or osteomyelitis. -Patient will consider trans-metatarsal amputation. Will discuss with brother. -Wound culture -preliminary read of MSSA, Enterobacter cloacae -Blood culture -preliminary negative for growth at 72 hours Afib -INR 1.89 -4mg Coumadin once tonight -F/U PT/INR Diabetes -Hold Metformin -ISS -BGM FEN -No IV fluids. Encourage judicious oral hydration. -Will follow CMP -Diabetic diet Prophylaxis -On Coumadin for Afib. Disposition -Continue care in medical-surgical floor for IV antibiotics Visit type - Emergency Visit Emergency Visit: Yes ED Registration Date: 01/02/18 Care time: The patient presented to the Emergency Department on the above date and was hospitalized for further evaluation of their emergent condition. - New Patient This patient is new to me today: No - Critical Care Critical Care patient: No - Discharge Referral Referred to [facility] Med P.C.: No
[2018-01-06] MEDS ORDERED: WARFARIN NA 2 MG TABLET (UD) PO ONE (18:00)
[2018-01-07] MEDS ORDERED: DEXTROSE 5%-WATER - 50 ML IVPB ONE ×4 (01:55→20:58)
[2018-01-07] MEDS ORDERED: PIPERACILLIN/TAZOBACTAM 3.375 GM VIAL IVPB ONE ×4 (01:55→20:58)
[2018-01-07] MEDS: PIPERACILLIN/TAZOB 3.375 GM 3.375 GM in DEXTROSE 5%-WATER - 50 ML IVPB SCH ×4 (02:22→21:16)
[2018-01-07] MEDS: INSULIN SLIDING SCALE (NOVOLOG) 1 VIAL SQ SCH ×4 (06:36→21:24)
--- NOTE | 2018-01-07 06:48 | PN ---
Physical Exam: SUBJECTIVE: Patient seen and examined at bedside this morning. Discussed with patient and brother over the phone, both of whom are in agreement for trans- metatarsal amputation. They express concern for time to heal after procedure, and when he can return to work. Denies pain, numbness, parasthesias, weakness, or drainage of left lower extremity. Denies fevers, chills, shortness of breath , cough, chest pain, palpitations, abdominal pain, nausea, vomiting diarrhea. OBJECTIVE: Vital Signs Period Temp Pulse Resp BP Sys/Griffith Pulse Ox Last 24 Hr 97.6 F-98.1 F 91-106 18-20 99-119/61-73 98-99 GENERAL: Awake, alert, and fully oriented, in no acute distress. HEAD: Normal with no signs of trauma. EYES: Pupils equal, round and reactive to light, extraocular movements intact, sclera anicteric, conjunctiva clear. EARS, NOSE, THROAT: Oropharynx without exudates, eryrythema, lesions. Moist mucous membranes. NECK: Normal range of motion, supple without lymphadenopathy. LUNGS: Good inspiratory effort. Breath sounds equal, clear to auscultation bilaterally. No wheezes, and no crackles. No accessory muscle use. HEART: Irregular rate and rhythm. Normal S1 and S2 without murmur, rub or gallop. ABDOMEN: Soft, nontender, not distended, normoactive bowel sounds, no guarding, no rebound, no masses. No hepatomegaly or splenomegaly. UPPER EXTREMITIES: 2+ radial pulses, warm, well-perfused. LOWER EXTREMITIES: 1+ dorsalis pedis pulses. Warm. Swollen left foot compared to right. Bandage clean. Amputation of two toes left foot, one toe right foot. [id number] diabetic foot ulcer on plantar aspect left foot. Clean margins, no drainage noted. NEUROLOGICAL: Cranial nerves II-XII intact. Sensation intact b/l upper and lower extremities. PSYCHIATRIC: Cooperative. Appropriate mood and affect. SKIN: Discoloration over dorsal aspect left foot for past 9 months. Laboratory Results - last 24 hr 01/06/18 01/06/18 01/06/18 06:24 06:24 06:24 WBC 6.0 RBC 4.26 Hgb 12.9 Hct 38.2 MCV 89.7 MCH 30.3 MCHC 33.8 RDW 14.2 Plt Count 179 MPV 10.3 PT with INR 22.40 H INR 1.89 H Sodium 139 Potassium 4.4 Chloride 106 Carbon Dioxide 26 Anion Gap 8 BUN 18 Creatinine 0.9 Creat Clearance w eGFR > 60 POC Glucometer Random Glucose 152 H Calcium 8.5 01/06/18 01/06/18 01/06/18 12:33 17:11 21:25 WBC RBC Hgb Hct MCV MCH MCHC RDW Plt Count MPV PT with INR INR Sodium Potassium Chloride Carbon Dioxide Anion Gap BUN Creatinine Creat Clearance w eGFR POC Glucometer 221 159 130 Random Glucose Calcium Active Medications Generic Name Dose Route Start Last Admin Trade Name Freq PRN Reason Stop Dose Admin Piperacillin Sod/Tazobactam 50 mls @ 100 mls/hr 01/02/18 17:30 01/07/18 02:22 Sod 3.375 gm/ Dextrose IVPB 100 mls/hr Q6H-IV TOSHIA Administration Insulin Aspart 1 vial 01/02/18 22:00 01/07/18 06:36 Novolog Vial Sliding Scale - SQ 2 units ACHS TOSHIA Administration Protocol ASSESSMENT/PLAN: Patient is a 52 year old male with history of Afib (on Coumadin), diabetes, diabetic foot ulcer, and osteomyelitis of left foot presents with complaint of left foot pain and swelling for the past three weeks. Cellulitis left lower extremity secondary to diabetic foot ulcers -Left lower extremity is warm, swollen, chronic discoloration along dorsal aspect, with some fluctuance along dorsal aspect foot -Podiatry consult (Dr. Alvarado) appreciated. Patient, and his brother both in agreement for trans-metatarsal amputation. Scheduled tentativey for Wednesday01/11/2018. Patient is s/p excisional debridement of left foot diabetic ulcers. F/U lower extremity doppler -ID consult (Dr. Rodney) appreciated. Zosyn 3.375 grams IV Q6H (day 6) -Xray left foot not revealing for osteomyelitis. -Wound culture -preliminary read of MSSA, Enterobacter cloacae -Blood culture -preliminary negative for growth at 96 hours -Culture from left foot: presumptive MRSA MRSA infection -Source may be secondary from debridement -Begin Vancomycin 1250mg IV Q24H Afib -INR 1.75 -Will hold coumadin in anticipation for procedure on Wednesday. Diabetes -Hold Metformin -ISS -BGM FEN -No IV fluids. Encourage judicious oral hydration. -Will follow CMP -Diabetic diet Prophylaxis -On Coumadin for Afib. Disposition -Continue care in medical-surgical floor for IV antibiotics Visit type - Emergency Visit Emergency Visit: Yes ED Registration Date: 01/02/18 Care time: The patient presented to the Emergency Department on the above date and was hospitalized for further evaluation of their emergent condition. - New Patient This patient is new to me today: No - Critical Care Critical Care patient: No - Discharge Referral Referred to [facility] Med P.C.: No
--- NOTE | 2018-01-07 07:32 | PN ---
Progress Note (short form) - Note Progress Note: Podiatry Brief Note: Discussed case with patient's brother. He agrees TMA is most viable option for patient. Patient understands that there have been numerous hospitalizations, numerous courses of IV abx and having definitive procedure would make his foot biomechanically more stable. Will order vascular studies. Needs INR optimized. Likely for Wednesday PM for TMA. Jimmie Alvarado DPM
[2018-01-07 08:19] LABS: ANION GAP 6 MMOL/L (8-16); BLOOD UREA NITROGEN 15 mg/dL (7-18); CHLORIDE 108 mmol/L (98-107); CO2 27 mmol/L (21-32); CREATININE 0.8 mg/dL (0.55-1.3); GLUCOSE,RANDOM 135 mg/dL (74-106); POTASSIUM 4.6 mmol/L (3.5-5.1); SODIUM 141 mmol/L (136-145)
[2018-01-07 08:25] LABS: HEMATOCRIT 39.1 % (35.4-49); HEMOGLOBIN 13.1 GM/dL (11.7-16.9); MCH 29.8 pg (25.7-33.7); MCHC 33.5 g/dl (32.0-35.9); MEAN CELL VOLUME 88.8 fl (80-96); MEAN PLT VOLUME 10.4 fl (7.5-11.1); PLATELET COUNT 188 K/MM3 (134-434); RDW 14.2 % (11.9-15.9); WHITE BLOOD COUNT 5.8 K/mm3 (4.0-10.0)
[2018-01-07 08:27] LABS: INR 1.75 (0.83-1.09); PROTHROMBIN TIME (PATIENT) 20.8 SEC (9.7-13.0)
--- NOTE | 2018-01-07 09:20 | PN ---
Progress Note, Physician History of Present Illness: patient stable no new issues podiatry note noted patient probably will need tma - Current Medication List Current Medications: Active Medications Piperacillin Sod/Tazobactam (Sod 3.375 gm/ Dextrose) 50 mls @ 100 mls/hr IVPB Q6H-IV TOSHIA Last Admin: 01/07/18 02:22 Dose: 100 mls/hr Insulin Aspart (Novolog Vial Sliding Scale -) 1 vial SQ ACHS TOSHIA; Protocol Last Admin: 01/07/18 06:36 Dose: 2 units - Objective Vital Signs: Vital Signs Temperature 98.1 F 01/07/18 05:37 Pulse Rate 91 H 01/07/18 05:37 Respiratory Rate 20 01/07/18 05:37 Blood Pressure 113/61 01/07/18 05:37 O2 Sat by Pulse Oximetry (%) 99 01/06/18 21:00 Constitutional: Yes: No Distress, Calm Cardiovascular: Yes: Pulse Irregular Respiratory: Yes: Regular, CTA Bilaterally Gastrointestinal: Yes: Normal Bowel Sounds, Soft Musculoskeletal: Yes: WNL Extremities: Yes: Other Wound/Incision: Yes: Dressing Dry and Intact Neurological: Yes: Alert, Oriented Psychiatric: Yes: Alert, Oriented Labs: CBC, BMP 01/07/18 07:30 01/07/18 07:30 INR, PTT INR 1.75 (0.83-1.09) H 01/07/18 07:30 Assessment/Plan 52 y/o man with h/o a fib, DM , OM of L foot treated , s/p multiple amputations , L foot infection wound infection om afib plan is to get amputation continue abx for now rest as per the podiatry patient stable
[2018-01-07] MEDS: VANCOMYCIN 1,250 MG in DEXTROSE 5%-WATER - 250 ML IVPB SCH (15:36)
--- NOTE | 2018-01-07 15:55 | PN ---
Teaching Attending Note Name of Resident: Urbano Wu ATTENDING PHYSICIAN STATEMENT I saw and evaluated the patient. I reviewed the resident's note and discussed the case with the resident. I agree with the resident's findings and plan as documented. SUBJECTIVE: No fever or chills. pain in foot OBJECTIVE: NAD CV : RRR Lungs: CTAB Ext : no edema on legs . foot was not uncovered today ASSESSMENT AND PLAN: 52 y/o man with h/o a fib, DM , OM of L foot , s/p multiple amputations , who is being treated for foot infection 2- L foot diabetic ulcer and chronic OM: - patient agreed to surgery - will dc MRI as it will not provide extra informationa t this point - MRSa + frm wound - vanco added, cont zosyn - hold coumadin 2- A fib: - cont toprol. - We need to interrupt the AC due to risk of bleed with this surgery . - No need for bridging with heparin or LMWH as the patient [id number] score is 2 ( risk for thromboembolism is low ), and patient had no previous stroke, and has no mechanical valve. ( ACC expert consensus 2017, BRIDGE study 2014). 3- DM : SSI dc is pending amputation
[2018-01-08] MEDS ORDERED: DEXTROSE 5%-WATER - 50 ML IVPB ONE ×3 (01:05→20:09)
[2018-01-08] MEDS ORDERED: PIPERACILLIN/TAZOBACTAM 3.375 GM VIAL IVPB ONE ×3 (01:05→20:09)
[2018-01-08] MEDS: PIPERACILLIN/TAZOB 3.375 GM 3.375 GM in DEXTROSE 5%-WATER - 50 ML IVPB SCH ×4 (02:14→21:56)
[2018-01-08] MEDS: INSULIN SLIDING SCALE (NOVOLOG) 1 VIAL SQ SCH ×4 (06:18→21:56)
[2018-01-08 08:07] LABS: HEMATOCRIT 38.6 % (35.4-49); HEMOGLOBIN 13.1 GM/dL (11.7-16.9); MCH 30.2 pg (25.7-33.7); MCHC 33.9 g/dl (32.0-35.9); MEAN CELL VOLUME 88.9 fl (80-96); MEAN PLT VOLUME 10.5 fl (7.5-11.1); PLATELET COUNT 186 K/MM3 (134-434); RBC 4.34 M/mm3 (4.00-5.60); RDW 14.2 % (11.9-15.9); WHITE BLOOD COUNT 6.6 K/mm3 (4.0-10.0)
[2018-01-08 08:23] LABS: ANION GAP 6 MMOL/L (8-16); BLOOD UREA NITROGEN 15 mg/dL (7-18); CALCIUM 8.9 mg/dL (8.5-10.1); CHLORIDE 108 mmol/L (98-107); CO2 28 mmol/L (21-32); CREATININE 0.9 mg/dL (0.55-1.3); GLUCOSE,RANDOM 118 mg/dL (74-106); POTASSIUM 4.5 mmol/L (3.5-5.1); SODIUM 143 mmol/L (136-145)
[2018-01-08] MEDS ORDERED: INSULIN (NOVOLOG) ASPART 100 UNITS/ML 10ML VIAL ONE (12:41)
[2018-01-08] MEDS: VANCOMYCIN 1,250 MG in DEXTROSE 5%-WATER - 250 ML IVPB SCH (12:51)
--- NOTE | 2018-01-08 13:32 | PN ---
Physical Exam: SUBJECTIVE: Patient seen and examined at bedside. Has no complaints feels well. No issues overnight Had questions about upcoming surgery. Questions answered OBJECTIVE: Vital Signs Period Temp Pulse Resp BP Sys/Griffith Pulse Ox Last 24 Hr 97.4 F-99 F 89-109 18-18 100-121/62-77 99-99 GENERAL: The patient is awake, alert, and fully oriented, in no acute distress. NECK: supple. LUNGS: Breath sounds equal, clear to auscultation bilaterally HEART: Irregular S1, S2 without murmur, rub or gallop. ABDOMEN: Soft, nontender, nondistended EXTREMITIES: Left foot ulcer with minimal drainage PSYCH: Normal mood, normal affect. SKIN: Warm, dry, normal turgor, no rashes or lesions noted Laboratory Results - last 24 hr 01/07/18 01/07/18 01/08/18 16:27 21:20 05:30 WBC 6.6 RBC 4.34 Hgb 13.1 Hct 38.6 MCV 88.9 MCH 30.2 MCHC 33.9 RDW 14.2 Plt Count 186 MPV 10.5 Sodium Potassium Chloride Carbon Dioxide Anion Gap BUN Creatinine Creat Clearance w eGFR POC Glucometer 146 178 Random Glucose Calcium 01/08/18 01/08/18 01/08/18 05:30 06:02 11:42 WBC RBC Hgb Hct MCV MCH MCHC RDW Plt Count MPV Sodium 143 Potassium 4.5 Chloride 108 H Carbon Dioxide 28 Anion Gap 6 L BUN 15 Creatinine 0.9 Creat Clearance w eGFR > 60 POC Glucometer 126 196 Random Glucose 118 H Calcium 8.9 Active Medications Generic Name Dose Route Start Last Admin Trade Name Dorianq PRN Reason Stop Dose Admin Piperacillin Sod/Tazobactam 50 mls @ 100 mls/hr 01/02/18 17:30 01/08/18 10:22 Sod 3.375 gm/ Dextrose IVPB 100 mls/hr Q6H-IV TOSHIA Administration Vancomycin HCl 1,250 mg/ 250 mls @ 250 mls/2 hr 01/07/18 13:00 01/08/18 12:51 Dextrose IVPB 250 mls/2 hr Q24H TOSHIA Administration Protocol Insulin Aspart 1 vial 01/02/18 22:00 01/08/18 12:50 Novolog Vial Sliding Scale - SQ 4 units ACHS TOSHIA Administration Protocol ASSESSMENT/PLAN: Patient is a 52 year old male with history of Afib (on Coumadin), diabetes, diabetic foot ulcer, and osteomyelitis of left foot presents with worsening pain and swelling of LLE. Diabetic foot ulcer with cellulitis of Left foot: Continue Steveo Jacqueline Appreciate Podiatry consult for TMA likely Wednesday continue to hold Coumadin Afib continue to hold coumadin Lab holiday INR wednesday AM Diabetes ISS BGM FEN no IVF No electrolyte issues diabetic diet Prophylaxis SCDs no GI PPx indicated Ambulate Case discussed with Dr. Parsons Visit type - Emergency Visit Emergency Visit: Yes ED Registration Date: 01/02/18 Care time: The patient presented to the Emergency Department on the above date and was hospitalized for further evaluation of their emergent condition. - New Patient This patient is new to me today: Yes Date on this admission: 01/08/18 - Critical Care Critical Care patient: No
--- NOTE | 2018-01-08 13:38 | PN ---
Progress Note, Physician History of Present Illness: stable doign well awaiting for final plans awaiting for finalization of cx - Current Medication List Current Medications: Active Medications Piperacillin Sod/Tazobactam (Sod 3.375 gm/ Dextrose) 50 mls @ 100 mls/hr IVPB Q6H-IV TOSHIA Last Admin: 01/08/18 10:22 Dose: 100 mls/hr Vancomycin HCl 1,250 mg/ (Dextrose) 250 mls @ 250 mls/2 hr IVPB Q24H TOSHIA; Protocol Last Admin: 01/08/18 12:51 Dose: 250 mls/2 hr Insulin Aspart (Novolog Vial Sliding Scale -) 1 vial SQ [facility]; Protocol Last Admin: 01/08/18 12:50 Dose: 4 units - Objective Vital Signs: Vital Signs Temperature 98.2 F 01/08/18 10:28 Pulse Rate 109 H 01/08/18 10:28 Respiratory Rate 18 01/08/18 10:28 Blood Pressure 109/62 01/08/18 10:28 O2 Sat by Pulse Oximetry (%) 99 01/08/18 09:00 Constitutional: Yes: No Distress, Calm Cardiovascular: Yes: Pulse Irregular, S1, S2 Respiratory: Yes: Regular, CTA Bilaterally Gastrointestinal: Yes: Normal Bowel Sounds, Soft Musculoskeletal: Yes: WNL Extremities: Yes: Other Neurological: Yes: Alert, Oriented Psychiatric: Yes: Alert, Oriented Labs: CBC, BMP 01/08/18 05:30 01/08/18 05:30 INR, PTT INR 1.75 (0.83-1.09) H 01/07/18 07:30 Assessment/Plan 52 y/o man with h/o a fib, DM , OM of L foot treated , s/p multiple amputations , L foot infection wound infection om afib plan is to get amputation continue abx for now with vanco and zosyn await for finalization of organism final plan awaited
--- NOTE | 2018-01-08 14:48 | PN ---
Progress Note (short form) - Note Progress Note: Podiatry Brief Note: Patient agreeable to TMA L foot. Discussed risks, benefits alternatives to sx at length with patient. For TMA early next week. Needs INR optimization prior to planned procedure. Jimmie Alvarado DPM
--- NOTE | 2018-01-08 15:20 | PN ---
Teaching Attending Note Name of Resident: Troy Dunlap ATTENDING PHYSICIAN STATEMENT I saw and evaluated the patient. I reviewed the resident's note and discussed the case with the resident. I agree with the resident's findings and plan as documented. SUBJECTIVE: no fever or chills . has no pain , No SOB OBJECTIVE: NAD CV : RRR Lungs: CTAB Ext : no edema on legs. foot with small ulcers over metatarsal heads 1, 4. some drainage on gauze. decrease size of the flucuant discolored area in middle of sole . No tenderness ASSESSMENT AND PLAN: 52 y/o man with h/o a fib, DM , OM of L foot , s/p multiple amputations , who is being treated for foot infection 2- L foot diabetic ulcer and chronic OM: - plan for surgery on Wednesday - vanco and zosyn - vanco trough on Wednesday - hold coumadin 2- A fib: - cont toprol. -cont to hold coumadin for surgery 3- DM : SSI dc is pending amputation
[2018-01-08 16:18] LABS: INR 1.52 (0.83-1.09)
[2018-01-09] MEDS ORDERED: PIPERACILLIN/TAZOBACTAM 3.375 GM VIAL IVPB ONE ×3 (01:29→22:16)
[2018-01-09] MEDS ORDERED: DEXTROSE 5%-WATER - 50 ML IVPB ONE ×3 (01:29→22:16)
[2018-01-09] MEDS: PIPERACILLIN/TAZOB 3.375 GM 3.375 GM in DEXTROSE 5%-WATER - 50 ML IVPB SCH ×4 (02:48→22:57)
[2018-01-09] MEDS: INSULIN SLIDING SCALE (NOVOLOG) 1 VIAL SQ SCH ×4 (06:40→22:56)
--- NOTE | 2018-01-09 11:29 | PN ---
Progress Note, Physician History of Present Illness: stable doing well no issues - Current Medication List Current Medications: Active Medications Piperacillin Sod/Tazobactam (Sod 3.375 gm/ Dextrose) 50 mls @ 100 mls/hr IVPB Q6H-IV TOSHIA Last Admin: 01/09/18 09:47 Dose: 100 mls/hr Insulin Aspart (Novolog Vial Sliding Scale -) 1 vial SQ ACHS TOSHIA; Protocol Last Admin: 01/09/18 06:40 Dose: 2 units - Objective Vital Signs: Vital Signs Temperature 97.7 F 01/09/18 09:48 Pulse Rate 105 H 01/09/18 09:48 Respiratory Rate 18 01/09/18 09:48 Blood Pressure 90/70 01/09/18 09:48 O2 Sat by Pulse Oximetry (%) 98 01/08/18 21:00 Constitutional: Yes: No Distress, Calm Cardiovascular: Yes: Pulse Irregular, S1, S2 Respiratory: Yes: Regular, CTA Bilaterally Gastrointestinal: Yes: Normal Bowel Sounds, Soft Musculoskeletal: Yes: Other Extremities: Yes: Other Wound/Incision: Yes: Dressing Dry and Intact Neurological: Yes: Alert, Oriented Labs: CBC, BMP 01/08/18 05:30 01/08/18 05:30 INR, PTT INR 1.52 (0.83-1.09) H 01/08/18 15:30 Assessment/Plan 52 y/o man with h/o a fib, DM , OM of L foot treated , s/p multiple amputations , L foot infection wound infection om afib plan is to get amputation continue abx for now hurst top vanco rest as per the team
--- NOTE | 2018-01-09 16:52 | PN ---
Progress Note (short form) - Note Progress Note: Subjective: No fever or chills. No abd pain . no foot pain Objective: Vital Signs: Last Vital Signs Temp Pulse Resp BP Pulse Ox 97.5 F L 105 H 20 105/65 98 01/09/18 14:08 01/09/18 14:08 01/09/18 14:08 01/09/18 14:08 01/09/18 09:00 Laboratory Results - last 24 hr 01/08/18 01/08/18 01/09/18 17:08 21:55 05:41 POC Glucometer 122 171 125 01/09/18 11:42 POC Glucometer 241 Physical Exam: NAD CV : RRR Lungs: CTAB Ext : no edema on legs. foot with small ulcers over metatarsal heads 1, 4. some drainage on gauze. decrease size of the flucuant discolored area in middle of sole . No tenderness ASSESSMENT AND PLAN: 52 y/o man with h/o a fib, DM , OM of L foot , s/p multiple amputations , who is being treated for foot infection 2- L foot diabetic ulcer and chronic OM: - plan for surgery on Wednesday . d/w with Dr. Alvarado - cont zosyn . off vanco - INR is expected to be < 1.5 tomorrow 2- A fib: - cont toprol. - cont to hold coumadin for surgery - patient is not planning to continue coumadin after sx. will discuss further 3- DM : SSI HLOC Visit type - Emergency Visit Emergency Visit: Yes ED Registration Date: 01/02/18 Care time: The patient presented to the Emergency Department on the above date and was hospitalized for further evaluation of their emergent condition. - New Patient This patient is new to me today: No - Critical Care Critical Care patient: No
[2018-01-09 17:37] LABS: INR 1.34 (0.83-1.09); PROTHROMBIN TIME (PATIENT) 15.9 SEC (9.7-13.0)
[2018-01-10] MEDS ORDERED: PIPERACILLIN/TAZOBACTAM 3.375 GM VIAL IVPB ONE ×4 (01:32→20:38)
[2018-01-10] MEDS ORDERED: DEXTROSE 5%-WATER - 50 ML IVPB ONE ×4 (01:32→20:39)
[2018-01-10] MEDS: PIPERACILLIN/TAZOB 3.375 GM 3.375 GM in DEXTROSE 5%-WATER - 50 ML IVPB SCH ×4 (01:59→21:48)
[2018-01-10] MEDS: INSULIN SLIDING SCALE (NOVOLOG) 1 VIAL SQ SCH ×4 (06:37→21:50)
[2018-01-10 09:24] LABS: INR 1.29 (0.83-1.09); PROTHROMBIN TIME (PATIENT) 15.3 SEC (9.7-13.0)
--- NOTE | 2018-01-10 10:26 | PN ---
Progress Note (short form) - Note Progress Note: Podiatry Brief Note: Had a lengthy discussion with the patient regarding treatment options. Risks, benefits alternatives to surgery discussed at length. I discussed that IV abx may help heal the wounds but will continue breaking down due to plantar pressures. He understands all and wishes to proceed. INT #[id number] used for interpretation via [email or web address] phone. Patient agreeable for surgery, for TMA L foot. Discussed with case management for workup for rehab placement, not sure if it is possible. Will follow. Jimmie Alvarado DPM
--- NOTE | 2018-01-10 10:42 | PN ---
Physical Exam: SUBJECTIVE: Patient seen and examined at bedside this morning. He denies any acute complaints today. Patient is anticipating the trans-metatarsal amputation this week. Denies fevers, chills, shortness of breath, cough, chest pain, palpitations, abdominal pain, nausea, vomiting diarrhea. OBJECTIVE: Vital Signs Period Temp Pulse Resp BP Sys/Griffith Pulse Ox Last 24 Hr 97.5 F-98.4 F 89-105 17-20 93-114/56-78 98 GENERAL: Awake, alert, and fully oriented, in no acute distress. HEAD: Normal with no signs of trauma. EYES: Pupils equal, round and reactive to light, extraocular movements intact, sclera anicteric, conjunctiva clear. EARS, NOSE, THROAT: Oropharynx without exudates, eryrythema, lesions. Moist mucous membranes. NECK: Normal range of motion, supple without lymphadenopathy. LUNGS: Good inspiratory effort. Breath sounds equal, clear to auscultation bilaterally. No wheezes, and no crackles. No accessory muscle use. HEART: Irregular rate and rhythm. Normal S1 and S2 without murmur, rub or gallop. ABDOMEN: Soft, nontender, not distended, normoactive bowel sounds, no guarding, no rebound, no masses. No hepatomegaly or splenomegaly. UPPER EXTREMITIES: 2+ radial pulses, warm, well-perfused. LOWER EXTREMITIES: 1+ dorsalis pedis pulses. Warm. Swollen left foot compared to right. Bandage clean. Amputation of two toes left foot, one toe right foot. [id number] diabetic foot ulcer on plantar aspect left foot. Clean margins, no drainage noted. NEUROLOGICAL: Cranial nerves II-XII intact. Sensation intact b/l upper and lower extremities. PSYCHIATRIC: Cooperative. Appropriate mood and affect. SKIN: Discoloration over dorsal aspect left foot (present for past 9 months). Laboratory Results - last 24 hr 01/09/18 01/09/18 01/09/18 11:42 17:00 17:19 PT with INR 15.90 H INR 1.34 H POC Glucometer 241 187 01/09/18 01/10/18 01/10/18 21:15 06:37 07:45 PT with INR 15.30 H INR 1.29 H POC Glucometer 252 136 Active Medications Generic Name Dose Route Start Last Admin Trade Name Freq PRN Reason Stop Dose Admin Piperacillin Sod/Tazobactam 50 mls @ 100 mls/hr 01/02/18 17:30 01/10/18 09:57 Sod 3.375 gm/ Dextrose IVPB 100 mls/hr Q6H-IV [facility]OS[facility] Administration Insulin Aspart 1 vial 01/02/18 22:00 01/10/18 06:37 Novolog Vial Sliding Scale - SQ Not Given ACHS [facility] Protocol ASSESSMENT/PLAN: Patient is a 52 year old male with history of Afib (on Coumadin), diabetes, diabetic foot ulcer, and osteomyelitis of left foot presents with complaint of left foot pain and swelling for the past three weeks. Cellulitis left lower extremity secondary to diabetic foot ulcers -Left lower extremity is warm, swollen, chronic discoloration along dorsal aspect, with some fluctuance along dorsal aspect foot -Podiatry consult (Dr. Alvarado) appreciated. Patient, and his brother both in agreement for trans-metatarsal amputation. Scheduled for tomorrow. Patient is s/p excisional debridement of left foot diabetic ulcers. F/U lower extremity doppler -ID consult (Dr. Rodney) appreciated. Zosyn 3.375 grams IV Q6H (day 9) -Xray left foot not revealing for osteomyelitis. -Wound culture -Staph aureus, Enterobacter cloacae -Culture from left foot: (01/04)- Staph aureus -Blood culture -preliminary negative for growth at 5 days incubation Afib -INR 1.29 -Will hold coumadin in anticipation for procedure tomorrow -F/U INR Diabetes -Hold Metformin -ISS -BGM FEN -No IV fluids. Encourage judicious oral hydration. -Will follow CMP -Diabetic diet Prophylaxis -SCDs b/l lower extremities. Chemical anticoagulation held in anticipation for procedure tomorrow. Disposition -Continue care in medical-surgical floor for IV antibiotics. Transmetatarsal amputation tomorrow. Visit type - Emergency Visit Emergency Visit: Yes ED Registration Date: 01/02/18 Care time: The patient presented to the Emergency Department on the above date and was hospitalized for further evaluation of their emergent condition. - New Patient This patient is new to me today: No - Critical Care Critical Care patient: No - Discharge Referral Referred to [facility] Med P.C.: No
--- NOTE | 2018-01-10 14:06 | PN ---
Progress Note, Physician History of Present Illness: stable podiatry note noted patient agrees for surgery - Current Medication List Current Medications: Active Medications Piperacillin Sod/Tazobactam (Sod 3.375 gm/ Dextrose) 50 mls @ 100 mls/hr IVPB Q6H-IV TOSHIA Last Admin: 01/10/18 09:57 Dose: 100 mls/hr Insulin Aspart (Novolog Vial Sliding Scale -) 1 vial SQ ACHS [facility]; Protocol Last Admin: 01/10/18 12:37 Dose: 6 units - Objective Vital Signs: Vital Signs Temperature 98.2 F 01/10/18 09:14 Pulse Rate 90 01/10/18 09:14 Respiratory Rate 17 01/10/18 09:14 Blood Pressure 100/73 01/10/18 09:14 O2 Sat by Pulse Oximetry (%) 98 01/09/18 21:00 Constitutional: Yes: No Distress, Calm Cardiovascular: Yes: Pulse Irregular Respiratory: Yes: Regular, CTA Bilaterally Gastrointestinal: Yes: Normal Bowel Sounds, Soft Musculoskeletal: Yes: WNL Extremities: Yes: Other Integumentary: Yes: Other Wound/Incision: Yes: Dressing Dry and Intact Labs: CBC, BMP 01/08/18 05:30 01/08/18 05:30 INR, PTT INR 1.29 (0.83-1.09) H 01/10/18 07:45 Assessment/Plan 52 y/o man with h/o a fib, DM , OM of L foot treated , s/p multiple amputations , L foot infection wound infection om afib plan is to get amputation continue abx for now wound care final plan awaited rest as per the team
--- NOTE | 2018-01-10 18:36 | PN ---
Teaching Attending Note Name of Resident: Urbano Wu ATTENDING PHYSICIAN STATEMENT I saw and evaluated the patient. I reviewed the resident's note and discussed the case with the resident. I agree with the resident's findings and plan as documented. SUBJECTIVE: Denies any pain any fever or chills. OBJECTIVE: NAD CV : RRR Lungs: CTAB Ext : no edema on legs. foot with small ulcers over metatarsal heads 1,4. no drainage noted. stable size of the flucuant discolored area in middle of sole . No tenderness ASSESSMENT AND PLAN: 52 y/o man with h/o a fib, DM , OM of L foot , s/p multiple amputations , who is being treated for foot infection 1- L foot diabetic ulcer and chronic OM: - d/w with Dr. Alvarado, for Sx tomorrow - cont zosyn. off vanco - cont to hold coumadin 2- A fib: - cont toprol. - cont to hold coumadin for surgery 3- DM : SSI HLOC after sx will start PT with no weight baring, and will start DVT Px pending therapeutic INR
[2018-01-11] MEDS ORDERED: PIPERACILLIN/TAZOBACTAM 3.375 GM VIAL IVPB ONE ×3 (03:04→20:41)
[2018-01-11] MEDS ORDERED: DEXTROSE 5%-WATER - 50 ML IVPB ONE ×3 (03:04→20:42)
[2018-01-11] MEDS: PIPERACILLIN/TAZOB 3.375 GM 3.375 GM in DEXTROSE 5%-WATER - 50 ML IVPB SCH ×4 (03:10→21:56)
[2018-01-11] MEDS: INSULIN SLIDING SCALE (NOVOLOG) 1 VIAL SQ SCH ×4 (06:07→21:56)
[2018-01-11 07:13] LABS: HEMOGLOBIN 13.1 GM/dL (11.7-16.9); MCH 29.8 pg (25.7-33.7); MCHC 33.7 g/dl (32.0-35.9); MEAN CELL VOLUME 88.6 fl (80-96); MEAN PLT VOLUME 10.2 fl (7.5-11.1); PLATELET COUNT 181 K/MM3 (134-434); RDW 13.8 % (11.9-15.9); WHITE BLOOD COUNT 5.9 K/mm3 (4.0-10.0)
[2018-01-11 07:25] LABS: INR 1.2 (0.83-1.09); PROTHROMBIN TIME (PATIENT) 14.2 SEC (9.7-13.0)
[2018-01-11 07:27] LABS: ACTIVATED PTT 29.8 SECONDS (25.2-36.5)
[2018-01-11 07:42] LABS: ANION GAP 4 MMOL/L (8-16); BLOOD UREA NITROGEN 15 mg/dL (7-18); CALCIUM 9.2 mg/dL (8.5-10.1); CHLORIDE 108 mmol/L (98-107); CO2 29 mmol/L (21-32); CREATININE 0.8 mg/dL (0.55-1.3); GLUCOSE,RANDOM 160 mg/dL (74-106); POTASSIUM 4.2 mmol/L (3.5-5.1); SODIUM 141 mmol/L (136-145)
--- NOTE | 2018-01-11 08:02 | PN ---
Physical Exam: SUBJECTIVE: Patient seen and examined at bedside this afternoon. He is POD #0 s/ p left foot trans-metatarsal amputation. He denies an fevers, chills, shortness of breath, chest pain, palpitations, abdominal pain, nausea, vomiting. OBJECTIVE: Vital Signs Period Temp Pulse Resp BP Sys/Griffith Pulse Ox Last 24 Hr 98 F-98.6 F 90-106 16-18 83-107/62-76 98 GENERAL: Awake, alert, and fully oriented, in no acute distress. HEAD: Normal with no signs of trauma. EYES: Pupils equal, round and reactive to light, extraocular movements intact, sclera anicteric, conjunctiva clear. EARS, NOSE, THROAT: Oropharynx without exudates, eryrythema, lesions. Moist mucous membranes. NECK: Normal range of motion, supple without lymphadenopathy. LUNGS: Good inspiratory effort. Breath sounds equal, clear to auscultation bilaterally. No wheezes, and no crackles. No accessory muscle use. HEART: Irregular rate and rhythm. Normal S1 and S2 without murmur, rub or gallop. ABDOMEN: Soft, nontender, not distended, normoactive bowel sounds, no guarding, no rebound, no masses. No hepatomegaly or splenomegaly. UPPER EXTREMITIES: 2+ radial pulses, warm, well-perfused. LOWER EXTREMITIES: Left foot bandaged s/p TMA. Dressing not opened as patient has just left OR. Will reevaluate wound in morning. NEUROLOGICAL: Cranial nerves II-XII intact. Sensation intact b/l upper and lower extremities. PSYCHIATRIC: Cooperative. Appropriate mood and affect. Laboratory Results - last 24 hr 01/09/18 01/10/18 01/10/18 21:15 07:45 12:13 WBC RBC Hgb Hct MCV MCH MCHC RDW Plt Count MPV PT with INR 15.30 H INR 1.29 H PTT (Actin FS) Sodium Potassium Chloride Carbon Dioxide Anion Gap BUN Creatinine Creat Clearance w eGFR POC Glucometer 252 212 Random Glucose Calcium 01/10/18 01/10/18 01/11/18 16:50 21:47 05:52 WBC RBC Hgb Hct MCV MCH MCHC RDW Plt Count MPV PT with INR INR PTT (Actin FS) Sodium Potassium Chloride Carbon Dioxide Anion Gap BUN Creatinine Creat Clearance w eGFR POC Glucometer 151 139 158 Random Glucose Calcium 10/12/2101/11/18 01/11/18 06:45 06:45 06:45 WBC 5.9 RBC 4.40 Hgb 13.1 Hct 39.0 MCV 88.6 MCH 29.8 MCHC 33.7 RDW 13.8 Plt Count 181 MPV 10.2 PT with INR 14.20 H INR 1.20 H PTT (Actin FS) 29.8 Sodium 141 Potassium 4.2 Chloride 108 H Carbon Dioxide 29 Anion Gap 4 L BUN 15 Creatinine 0.8 Creat Clearance w eGFR > 60 POC Glucometer Random Glucose 160 H Calcium 9.2 Active Medications Generic Name Dose Route Start Last Admin Trade Name Freq PRN Reason Stop Dose Admin Piperacillin Sod/Tazobactam 50 mls @ 100 mls/hr 01/02/18 17:30 01/11/18 03:10 Sod 3.375 gm/ Dextrose IVPB 100 mls/hr Q6H-IV TOSHIA Administration Insulin Aspart 1 vial 01/02/18 22:00 01/11/18 06:07 Novolog Vial Sliding Scale - SQ Not Given ACHS T[facility] Protocol ASSESSMENT/PLAN: Patient is a 52 year old male with history of Afib (on Coumadin), diabetes, diabetic foot ulcer, and osteomyelitis of left foot presents with complaint of left foot pain and swelling for the past three weeks. Cellulitis left lower extremity secondary to diabetic foot ulcers Patient is POD#0 s/p TMA with Dr. Alvarado. -F/U Tissue culture -F/U wound culture -ID consult (Dr. Rodney) appreciated. -Zosyn 3.375 grams IV Q6H (day 10) -Xray left foot not revealing for osteomyelitis. -Wound culture -Staph aureus, Enterobacter cloacae -Culture from left foot: (01/04)- Staph aureus -Blood culture - negative for growth at 5 days incubation -Oxycodone 5mg IV Q4H PRN pain 1-5 -Morphine 2mg IV q4H PRN pain 6-10 -Zofran 4mg IV Q6H PRN for nausea Afib -INR 1.20 -Will hold coumadin until re-evaluated by Dr. Alvarado in the morning. Diabetes -Hold Metformin -ISS -BGM FEN -No IV fluids. Encourage judicious oral hydration. -Will follow CMP -Diabetic diet Prophylaxis -SCDs b/l lower extremities. Disposition -Continue care in medical-surgical floor. Visit type - Emergency Visit Emergency Visit: Yes ED Registration Date: 01/02/18 Care time: The patient presented to the Emergency Department on the above date and was hospitalized for further evaluation of their emergent condition. - New Patient This patient is new to me today: No - Critical Care Critical Care patient: No - Discharge Referral Referred to [facility] Med P.C.: No
[2018-01-11] MEDS ORDERED: ONDANSETRON 4 MG/2 ML VIAL IVPUSH PRN ×2 (11:54→15:06)
[2018-01-11] MEDS ORDERED: LACTATED RINGERS SOLUTION 1,000 ML IV SCH ×2 (12:00→15:06)
[2018-01-11] MEDS ORDERED: PROPOFOL 20 ML ONE (12:10)
[2018-01-11] MEDS ORDERED: MIDAZOLAM HCL 2 MG/2 ML SINGLE DOSE VIAL ONE (12:10)
[2018-01-11] MEDS ORDERED: LIDOCAINE 1%/EPI 1:100000 (20 ML MULTI DOSE VIAL) ONE (12:17)
[2018-01-11] MEDS ORDERED: LIDOCAINE 1%/EPI 1:100000 (50 ML MULTI DOSE VIAL) INF ONE (13:16)
--- NOTE | 2018-01-11 14:06 | PN ---
Progress Note, Physician History of Present Illness: stable no issues going for surgery today - Current Medication List Current Medications: Active Medications Fentanyl (Sublimaze Injection -) 50 mcg IVPUSH [id number] PRN PRN Reason: PAIN-PACU ORDER X 4 DOSES ONLY Piperacillin Sod/Tazobactam (Sod 3.375 gm/ Dextrose) 50 mls @ 100 mls/hr IVPB Q6H-IV TOSHIA Last Admin: 01/11/18 09:28 Dose: 100 mls/hr Lactated Ringer's (Lactated Ringers Solution) 1,000 mls @ 75 mls/hr IV ASDIR TOSHIA Insulin Aspart (Novolog Vial Sliding Scale -) 1 vial SQ ACHS [facility]; Protocol Last Admin: 01/11/18 11:43 Dose: Not Given Ondansetron HCl (Zofran Injection) 4 mg IVPUSH Q6H PRN PRN Reason: NAUSEA AND/OR VOMITING - Objective Vital Signs: Vital Signs Temperature 98.1 F 01/11/18 08:57 Pulse Rate 77 01/11/18 08:57 Respiratory Rate 18 01/11/18 08:57 Blood Pressure 105/66 01/11/18 08:57 O2 Sat by Pulse Oximetry (%) 98 01/10/18 21:00 Constitutional: Yes: No Distress, Calm Cardiovascular: Yes: Pulse Irregular Respiratory: Yes: Regular, CTA Bilaterally Gastrointestinal: Yes: Normal Bowel Sounds, Soft Musculoskeletal: Yes: Other Extremities: Yes: Other Integumentary: Yes: Other Wound/Incision: Yes: Dressing Dry and Intact Neurological: Yes: Alert, Oriented Psychiatric: Yes: Alert, Oriented Labs: CBC, BMP 01/11/18 06:45 01/11/18 06:45 INR, PTT INR 1.20 (0.83-1.09) H 01/11/18 06:45 Assessment/Plan 52 y/o man with h/o a fib, DM , OM of L foot treated , s/p multiple amputations , L foot infection wound infection om afib patient going to or today plan will await cx from the or depending on that will decide further treatment
--- NOTE | 2018-01-11 14:53 | OP ---
Operative Note - Note: Operative Date: 01/11/18 Pre-Operative Diagnosis: Forefoot chronic osteomyelitis left foot Operation: Transmetatarsal amputation left foot Findings: see operative note Post-Operative Diagnosis: Same as Pre-op Surgeon: Cristi Alvarado Perforator Typist: Jeromy Cooper Anesthesia: Local, MAC Estimated Blood Loss (mls): 50 Operative Report Dictated: Yes
[2018-01-11] MEDS ORDERED: GLYCOPYRROLATE 0.2 MG/1 ML VIAL ONE (15:19)
[2018-01-11] MEDS: oxyCODONE HCL 5 MG TABLET PO PRN ×2 (17:00→21:58)
--- NOTE | 2018-01-11 18:40 | PN ---
Teaching Attending Note Name of Resident: Urbano Wu ATTENDING PHYSICIAN STATEMENT I saw and evaluated the patient. I reviewed the resident's note and discussed the case with the resident. I agree with the resident's findings and plan as documented. SUBJECTIVE:seen in AM before his sx No fever or chills. no pain OBJECTIVE: NAD CV: RRR Lungs: CTAB Ext: no edema on legs. L foot was not unwrapped today ASSESSMENT AND PLAN: 52 y/o man with h/o a fib, DM , OM of L foot , s/p multiple amputations, who is being treated for foot infection 1- L foot diabetic ulcer and chronic OM: - s/p TMA today - cont zosyn. off vanco - oxy and morphine - follow bone cx and pathology report 2- A fib: - cont toprol. - resume coumadin . d/w Dr. Alvarado . 3- DM : SSI HLOC
[2018-01-11] MEDS ORDERED: WARFARIN NA 3 MG TABLET PO ONE (19:00)
[2018-01-11] MEDS: MORPHINE SULFATE 2 MG/ML VIAL IVPUSH PRN (19:43)
[2018-01-12] MEDS: MORPHINE SULFATE 2 MG/ML VIAL IVPUSH PRN ×4 (01:12→17:41)
[2018-01-12] MEDS ORDERED: DEXTROSE 5%-WATER - 50 ML IVPB ONE ×4 (02:50→21:49)
[2018-01-12] MEDS ORDERED: PIPERACILLIN/TAZOBACTAM 3.375 GM VIAL IVPB ONE ×4 (02:50→21:49)
[2018-01-12] MEDS: PIPERACILLIN/TAZOB 3.375 GM 3.375 GM in DEXTROSE 5%-WATER - 50 ML IVPB SCH ×4 (03:02→22:52)
[2018-01-12] MEDS: oxyCODONE HCL 5 MG TABLET PO PRN (03:06)
[2018-01-12 06:13] LABS: HEMATOCRIT 35.6 % (35.4-49); HEMOGLOBIN 12.1 GM/dL (11.7-16.9); MCH 30.1 pg (25.7-33.7); MCHC 34.1 g/dl (32.0-35.9); MEAN CELL VOLUME 88.4 fl (80-96); MEAN PLT VOLUME 10.1 fl (7.5-11.1); PLATELET COUNT 165 K/MM3 (134-434); RBC 4.03 M/mm3 (4.00-5.60); WHITE BLOOD COUNT 7.3 K/mm3 (4.0-10.0)
[2018-01-12 06:36] LABS: ALBUMIN 3.3 g/dl (3.4-5.0); ALK PHOS 75 U/L (45-117); ANION GAP 6 MMOL/L (8-16); BILIRUBIN,TOTAL 0.4 mg/dL (0.2-1); BLOOD UREA NITROGEN 14 mg/dL (7-18); CALCIUM 8.5 mg/dL (8.5-10.1); CHLORIDE 104 mmol/L (98-107); CO2 29 mmol/L (21-32); CREATININE 0.9 mg/dL (0.55-1.3); GLUCOSE,RANDOM 127 mg/dL (74-106); POTASSIUM 3.8 mmol/L (3.5-5.1); SGOT/AST 22 U/L (15-37); SGPT/ALT 30 U/L (13-61); SODIUM 138 mmol/L (136-145); TOT PROT 6.7 g/dl (6.4-8.2)
[2018-01-12] MEDS: INSULIN SLIDING SCALE (NOVOLOG) 1 VIAL SQ SCH ×4 (06:52→22:57)
[2018-01-12 08:33] LABS: INR 1.19 (0.83-1.09); PROTHROMBIN TIME (PATIENT) 14.1 SEC (9.7-13.0)
--- NOTE | 2018-01-12 10:31 | PN ---
Progress Note (short form) - Note Progress Note: Anesthesia POD#1 S/P Left Foot TMA under MAC VSS,mild pain,no N/V. No complications to anesthesia seen. Aida Durant MD.
--- NOTE | 2018-01-12 11:03 | PN ---
Progress Note (short form) - Note Progress Note: Podiatry F/U; Seen/evaluated at bedside NAD. Pain well controlled, denies F/V/N/C/SOB/Cp. Afebrile. S/p L TMA POD#1. WILLIAM: L foot: pedal pulses palpable, TG wnl. Sutures well coapted, no dehiscence, no purulence, no fluctuance, no streaking cellulitis, no signs of active infection. No hematoma formation. No ischemic changes the stump is warm, well perfused. Minimal tenderness to palpation. OR Cx: pending Imp: 52 year old DM M s/p L TMA for chronic osteomyelitis POD#1 1. DSD L Foot 2. Pain control. 3. Nonweightbearing L foot 4. F/u OR cx 5. Will follow Jimmie Alvarado DPM
--- NOTE | 2018-01-12 13:16 | PN ---
Physical Exam: SUBJECTIVE: Patient seen and examined at bedside this afternoon. He is POD #1 s/ p left foot trans-metatarsal amputation. He denies any pain, headaches, lightheadedness, fevers, chills, shortness of breath, chest pain, palpitations, abdominal pain, nausea, vomiting. OBJECTIVE: Vital Signs Period Temp Pulse Resp BP Sys/Griffith Pulse Ox Last 24 Hr 97.5 F-98.5 F 83-105 16-20 90-112/52-80 96-100 GENERAL: Awake, alert, and fully oriented, in no acute distress. HEAD: Normal with no signs of trauma. EYES: Pupils equal, round and reactive to light, extraocular movements intact, sclera anicteric, conjunctiva clear. EARS, NOSE, THROAT: Oropharynx without exudates, eryrythema, lesions. Moist mucous membranes. NECK: Normal range of motion, supple without lymphadenopathy. LUNGS: Good inspiratory effort. Breath sounds equal, clear to auscultation bilaterally. No wheezes, and no crackles. No accessory muscle use. HEART: Irregular rate and rhythm. Normal S1 and S2 without murmur, rub or gallop. ABDOMEN: Soft, nontender, not distended, normoactive bowel sounds, no guarding, no rebound, no masses. No hepatomegaly or splenomegaly. UPPER EXTREMITIES: 2+ radial pulses, warm, well-perfused. LOWER EXTREMITIES: Left foot bandaged s/p TMA. Clean surgical site without erythema, drainage. 2+ dorsalis pedis pulses b/l. NEUROLOGICAL: Cranial nerves II-XII intact. Sensation intact b/l upper and lower extremities. PSYCHIATRIC: Cooperative. Appropriate mood and affect. Laboratory Results - last 24 hr 01/11/18 01/11/18 01/12/18 17:48 21:55 05:55 WBC RBC Hgb Hct MCV MCH MCHC RDW Plt Count MPV PT with INR INR Sodium Potassium Chloride Carbon Dioxide Anion Gap BUN Creatinine Creat Clearance w eGFR POC Glucometer 195 237 146 Random Glucose Calcium Total Bilirubin AST ALT Alkaline Phosphatase Total Protein Albumin 01/12/18 01/12/18 01/12/18 06:00 06:00 06:00 WBC 7.3 RBC 4.03 Hgb 12.1 Hct 35.6 MCV 88.4 MCH 30.1 MCHC 34.1 RDW 14.0 Plt Count 165 MPV 10.1 PT with INR 14.10 H INR 1.19 H Sodium 138 Potassium 3.8 Chloride 104 Carbon Dioxide 29 Anion Gap 6 L BUN 14 Creatinine 0.9 Creat Clearance w eGFR > 60 POC Glucometer Random Glucose 127 H Calcium 8.5 Total Bilirubin 0.4 AST 22 ALT 30 Alkaline Phosphatase 75 Total Protein 6.7 Albumin 3.3 L 01/12/18 11:39 WBC RBC Hgb Hct MCV MCH MCHC RDW Plt Count MPV PT with INR INR Sodium Potassium Chloride Carbon Dioxide Anion Gap BUN Creatinine Creat Clearance w eGFR POC Glucometer 140 Random Glucose Calcium Total Bilirubin AST ALT Alkaline Phosphatase Total Protein Albumin Active Medications Generic Name Dose Route Start Last Admin Trade Name Freq PRN Reason Stop Dose Admin Piperacillin Sod/Tazobactam 50 mls @ 100 mls/hr 01/11/18 21:00 01/12/18 09:23 Sod 3.375 gm/ Dextrose IVPB 100 mls/hr Q6H-IV TOSHIA Administration Insulin Aspart 1 vial 01/11/18 16:30 01/12/18 11:40 Novolog Vial Sliding Scale - SQ 2 units ACHS TOS[facility]IA Administration Protocol Morphine Sulfate 2 mg 01/11/18 16:50 01/12/18 10:22 Morphine Sulfate IVPUSH 2 mg Q4H PRN Administration PAIN LEVEL 6 - 10 Ondansetron HCl 4 mg 01/11/18 15:06 Zofran Injection IVPUSH Q6H PRN NAUSEA AND/OR VOMITING Oxycodone HCl 5 mg 01/11/18 14:57 01/12/18 03:06 Roxicodone - PO 5 mg Q4H PRN Administration PAIN LEVEL 1-5 ASSESSMENT/PLAN: Patient is a 52 year old male with history of Afib (on Coumadin), diabetes, diabetic foot ulcer, and osteomyelitis of left foot presents with complaint of left foot pain and swelling for the past three weeks. He is now s/p TMA of left foot. Cellulitis left lower extremity secondary to diabetic foot ulcers Patient is POD #1 s/p TMA with Dr. Alvarado. -ID consult (Dr. Rodney) appreciated. Will need to establish clean surgical margins. -Zosyn 3.375 grams IV Q6H (day 11) -Oxycodone 5mg IV Q4H PRN pain 1-5 -Morphine 2mg IV q4H PRN pain 6-10 -Zofran 4mg IV Q6H PRN for nausea -F/U tissue culture -F/U wound culture Afib -INR 1.19 today -Coumadin 6mg PO reinstated. -Will F/U INR Diabetes -Hold Metformin -ISS -BGM FEN -No IV fluids. Encourage judicious oral hydration. -Will follow CMP -Diabetic diet Prophylaxis -SCDs b/l lower extremities. Disposition -Continue care in medical-surgical floor. Visit type - Emergency Visit Emergency Visit: Yes ED Registration Date: 01/02/18 Care time: The patient presented to the Emergency Department on the above date and was hospitalized for further evaluation of their emergent condition. - New Patient This patient is new to me today: No - Critical Care Critical Care patient: No - Discharge Referral Referred to [facility] Med P.C.: No
--- NOTE | 2018-01-12 13:38 | OP ---
DATE OF OPERATION: 01/11/2018 PREOPERATIVE DIAGNOSIS: Left foot diabetic ulcers with chronic osteomyelitis. POSTOPERATIVE DIAGNOSIS: Left foot diabetic ulcers with chronic osteomyelitis. PROCEDURE: Left foot transmetatarsal amputation, revisional. SURGEON: Cristi Alvarado DPM DRESS MARKER: Dr. Cooper ANESTHESIA: IV sedation with local. ESTIMATED BLOOD LOSS: 50 mL. PATHOLOGY: Bone forefoot, left foot. COMPLICATIONS: None. DESCRIPTION OF PROCEDURE: The patient was brought to the operating room and placed on the operating table in the supine position. I elected to not use a tourniquet during the course of the procedure. Following the induction of IV sedation, local anesthesia was achieved utilizing 20 mL of 2% lidocaine plain. The left foot was scrubbed, prepped, and draped in the usual sterile fashion. Attention was directed to the left foot where prior amputation of the hallux and 4th digit were visualized and appreciated. Additionally, there were submetatarsal ulcers under the 1st, 3rd, and 4th metatarsals. I began by performing a circumferential incision about the forefoot at the level of the metatarsophalangeal joints taking care to preserve a plantar flap with the incision oriented distally and plantarly. The incision was deepened using blunt and sharp dissection taking care to retract vital neural and vascular structures. All bleeders were cauterized and ligated as appropriate. Next, the digits 2, 3, and 5 were disarticulated at the level of the metatarsophalangeal joint. The digits were removed as well as the remainder of the forefoot, and this was sent to Pathology for analysis. Of note, the hallux and 4th metatarsal stumps were noted to be fragmented and hypertrophied, which is indicative of an osteomyelitis. Once disarticulated, the deep capsular and periosteal structures were reflected from the metatarsals. Next, the metatarsals were resected distally utilizing the sagittal saw and taking care to preserve the normal metatarsal parabola. This bone was subsequently removed. A portion of the bone was sent for both bone culture and bone pathology. Rough edges of bone were smoothed with a rotary rasp. Next, the surgical site was copiously irrigated with sterile saline. Inspection of the subcutaneous tissues yielded no active bleeders. The deep subcutaneous tissues were reapproximated and maintain utilizing 3-0 Vicryl. The skin was coapted using 3-0 nylon in a simple interrupted suture fashion. The stump closed well with minimal tension on the tissues. Following the conclusion of the procedure, the surgical site was covered with Xeroform, and a sterile compressive dressing was applied to the left foot consisting of sterile gauze, Dinorah, Kerlix, abdominal pad, and Beny wrap. The patient tolerated the procedure and anesthesia well without complications. He was transferred from the operating room to the recovery unit with vital signs stable and neurovasculature intact to the left foot. MARGIE POPE/[id number] cc: [facility] Pod[facility]
--- NOTE | 2018-01-12 13:45 | PN ---
Teaching Attending Note Name of Resident: Urbano Kanarunnicolette ATTENDING PHYSICIAN STATEMENT I saw and evaluated the patient. I reviewed the resident's note and discussed the case with the resident. I agree with the resident's findings and plan as documented. SUBJECTIVE: Patient is feeling better with no acute distress. OBJECTIVE: Vital Signs Temperature 98.2 F 01/12/18 09:42 Pulse Rate 105 H 01/12/18 09:42 Respiratory Rate 18 01/12/18 09:42 Blood Pressure 96/58 L 01/12/18 09:42 O2 Sat by Pulse Oximetry (%) 96 01/12/18 09:00 GENERAL: Awake, alert, and fully oriented, in no acute distress. HEAD: Normal with no signs of trauma. EYES: Pupils equal, round and reactive to light, extraocular movements intact, sclera anicteric, conjunctiva clear. EARS, NOSE, THROAT: Oropharynx without exudates, eryrythema, lesions. Moist mucous membranes. NECK: Normal range of motion, supple without lymphadenopathy. LUNGS: Good inspiratory effort. Breath sounds equal, clear to auscultation bilaterally. No wheezes, and no crackles. No accessory muscle use. HEART: Irregular rate and rhythm. Normal S1 and S2 without murmur, rub or gallop. ABDOMEN: Soft, nontender, not distended, normoactive bowel sounds, no guarding, no rebound, no masses. No hepatomegaly or splenomegaly. UPPER EXTREMITIES: 2+ radial pulses, warm, well-perfused. LOWER EXTREMITIES: Left foot bandaged s/p TMA. 2+ dorsalis pedis pulses b/l. NEUROLOGICAL: Cranial nerves II-XII intact. Sensation intact b/l upper and lower extremities. PSYCHIATRIC: Cooperative. Appropriate mood and affect. CBCD WBC 7.3 K/mm3 (4.0-10.0) 01/12/18 06:00 RBC 4.03 M/mm3 (4.00-5.60) 01/12/18 06:00 Hgb 12.1 GM/dL (11.7-16.9) 01/12/18 06:00 Hct 35.6 % (35.4-49) 01/12/18 06:00 MCV 88.4 fl (80-96) 01/12/18 06:00 MCHC 34.1 g/dl (32.0-35.9) 01/12/18 06:00 RDW 14.0 % (11.9-15.9) 01/12/18 06:00 Plt Count 165 K/MM3 (134-434) 01/12/18 06:00 MPV 10.1 fl (7.5-11.1) 01/12/18 06:00 CMP Sodium 138 mmol/L (136-145) 01/12/18 06:00 Potassium 3.8 mmol/L (3.5-5.1) 01/12/18 06:00 Chloride 104 mmol/L (98-107) 01/12/18 06:00 Carbon Dioxide 29 mmol/L (21-32) 01/12/18 06:00 Anion Gap 6 MMOL/L (8-16) L 01/12/18 06:00 BUN 14 mg/dL (7-18) 01/12/18 06:00 Creatinine 0.9 mg/dL (0.55-1.3) 01/12/18 06:00 Creat Clearance w eGFR > 60 (>60) 01/12/18 06:00 Random Glucose 127 mg/dL (74-106) H 01/12/18 06:00 Calcium 8.5 mg/dL (8.5-10.1) 01/12/18 06:00 Total Bilirubin 0.4 mg/dL (0.2-1) 01/12/18 06:00 AST 22 U/L (15-37) 01/12/18 06:00 ALT 30 U/L (13-61) 01/12/18 06:00 Alkaline Phosphatase 75 U/L (45-117) 01/12/18 06:00 Total Protein 6.7 g/dl (6.4-8.2) 01/12/18 06:00 Albumin 3.3 g/dl (3.4-5.0) L 01/12/18 06:00 Current Medications Generic Name Dose Route Start Last Admin Trade Name Freq PRN Reason Stop Dose Admin Piperacillin Sod/Tazobactam 50 mls @ 100 mls/hr 01/11/18 21:00 01/12/18 09:23 Sod 3.375 gm/ Dextrose IVPB 100 mls/hr Q6H-IV [facility] Administration Insulin Aspart 1 vial 01/11/18 16:30 01/12/18 11:40 Novolog Vial Sliding Scale - SQ 2 units ACHS [facility] Administration Protocol Morphine Sulfate 2 mg 01/11/18 16:50 01/12/18 10:22 Morphine Sulfate IVPUSH 2 mg Q4H PRN Administration PAIN LEVEL 6 - 10 Ondansetron HCl 4 mg 01/11/18 15:06 Zofran Injection IVPUSH Q6H PRN NAUSEA AND/OR VOMITING Oxycodone HCl 5 mg 01/11/18 14:57 01/12/18 03:06 Roxicodone - PO 5 mg Q4H PRN Administration PAIN LEVEL 1-5 Warfarin Sodium 6 mg 01/12/18 18:00 Coumadin - PO 01/12/18 18:01 ONCE@1800 ONE Home Medications Medication Instructions Recorded Metformin HCl [Glucophage] 1,000 mg PO BID 01/02/18 Warfarin Sodium [Coumadin] 6 mg PO HS 01/02/18 ASSESSMENT AND PLAN: Patient is a 52 y/o man with h/o a fib, DM , OM of L foot, s/p multiple amputations, who is being treated for foot infection # Left foot diabetic ulcer and chronic OM: s/p TMA , On zosyn. off vanco, will bone cx and pathology report # A fib: cont toprol. continue coumadin, pT/INR . d/w Dr. Alvarado . # DM : SSI DVt Px: coumadin
--- NOTE | 2018-01-12 15:57 | PN ---
Progress Note, Physician History of Present Illness: doing well no issues awaiting for finalization of cx - Current Medication List Current Medications: Active Medications Piperacillin Sod/Tazobactam (Sod 3.375 gm/ Dextrose) 50 mls @ 100 mls/hr IVPB Q6H-IV [facility] Last Admin: 01/12/18 14:53 Dose: 100 mls/hr Insulin Aspart (Novolog Vial Sliding Scale -) 1 vial SQ ACHS [facility]; Protocol Last Admin: 01/12/18 11:40 Dose: 2 units Morphine Sulfate (Morphine Sulfate) 2 mg IVPUSH Q4H PRN PRN Reason: PAIN LEVEL 6 - 10 Last Admin: 01/12/18 10:22 Dose: 2 mg Ondansetron HCl (Zofran Injection) 4 mg IVPUSH Q6H PRN PRN Reason: NAUSEA AND/OR VOMITING Oxycodone HCl (Roxicodone -) 5 mg PO Q4H PRN PRN Reason: PAIN LEVEL 1-5 Last Admin: 01/12/18 03:06 Dose: 5 mg Warfarin Sodium (Coumadin -) 6 mg PO ONCE@1800 ONE Stop: 01/12/18 18:01 - Objective Vital Signs: Vital Signs Temperature 98.7 F 01/12/18 15:32 Pulse Rate 104 H 01/12/18 15:32 Respiratory Rate 18 01/12/18 15:32 Blood Pressure 87/55 L 01/12/18 15:32 O2 Sat by Pulse Oximetry (%) 96 01/12/18 09:00 Constitutional: Yes: No Distress, Calm HENT: Yes: Atraumatic Cardiovascular: Yes: Pulse Irregular, S1, S2 Respiratory: Yes: Regular, CTA Bilaterally Gastrointestinal: Yes: Normal Bowel Sounds, Soft Musculoskeletal: Yes: WNL Extremities: Yes: Other Wound/Incision: Yes: Dressing Dry and Intact Neurological: Yes: Alert, Oriented Psychiatric: Yes: Alert, Oriented Labs: CBC, BMP 01/12/18 06:00 01/12/18 06:00 INR, PTT INR 1.19 (0.83-1.09) H 01/12/18 06:00 Assessment/Plan 52 y/o man with h/o a fib, DM , OM of L foot treated , s/p multiple amputations , L foot infection wound infection om afib patient post amputation doing well all cx reports noted plan will await for finalization of cx report once we have that will make the final decision
[2018-01-12] MEDS ORDERED: WARFARIN NA 3 MG TABLET PO ONE (18:00)
[2018-01-13] MEDS: PIPERACILLIN/TAZOB 3.375 GM 3.375 GM in DEXTROSE 5%-WATER - 50 ML IVPB SCH ×4 (03:06→22:48)
[2018-01-13] MEDS ORDERED: PIPERACILLIN/TAZOBACTAM 3.375 GM VIAL IVPB ONE ×4 (04:36→22:15)
[2018-01-13] MEDS ORDERED: DEXTROSE 5%-WATER - 50 ML IVPB ONE ×4 (04:36→22:16)
[2018-01-13] MEDS: INSULIN SLIDING SCALE (NOVOLOG) 1 VIAL SQ SCH ×4 (06:28→22:49)
[2018-01-13 07:14] LABS: HEMATOCRIT 36.1 % (35.4-49); HEMOGLOBIN 12.1 GM/dL (11.7-16.9); MCH 29.8 pg (25.7-33.7); MCHC 33.7 g/dl (32.0-35.9); MEAN CELL VOLUME 88.5 fl (80-96); MEAN PLT VOLUME 10.1 fl (7.5-11.1); PLATELET COUNT 156 K/MM3 (134-434); RBC 4.08 M/mm3 (4.00-5.60); RDW 14.4 % (11.9-15.9); WHITE BLOOD COUNT 7.2 K/mm3 (4.0-10.0)
[2018-01-13 07:42] LABS: INR 1.28 (0.83-1.09); PROTHROMBIN TIME (PATIENT) 15.2 SEC (9.7-13.0)
[2018-01-13 08:20] LABS: ANION GAP 8 MMOL/L (8-16); BLOOD UREA NITROGEN 13 mg/dL (7-18); CALCIUM 8.6 mg/dL (8.5-10.1); CHLORIDE 109 mmol/L (98-107); CO2 25 mmol/L (21-32); CREATININE 0.8 mg/dL (0.55-1.3); GLUCOSE,RANDOM 149 mg/dL (74-106); SODIUM 142 mmol/L (136-145)
--- NOTE | 2018-01-13 09:36 | PN ---
Progress Note (short form) - Note Progress Note: Podiatry F/U; Seen/evaluated at bedside NAD. pain controlled. Denies F/V/N/C/SOB/CP. s/p L TMA POD #2. WILLIAM: L foot: post-surgical dressing C/D/I, no active bleeding. Sutures well coapted , no dehiscence, no purulence, no fluctuance, no streaking cellulitis, no signs of active infection. Mild tenderness to palpation. The stump is warm, no ischemic changes. No signs of postoperative hematoma OR Cx: pending Imp: 52 year old DM M s/p L foot TMA 1. Abx per ID 2. DSD L foot 3. Nonweightbearing L foot. Patient needs crutches for NWB status. 4. Pain control 5. Upon discharge, will f/u with me in wound healing center this Wednesday, . [phone]. Jimmie Alvarado DPM
[2018-01-13] MEDS ORDERED: INSULIN (NOVOLOG) ASPART 100 UNITS/ML 10ML VIAL ONE ×3 (11:20→22:15)
--- NOTE | 2018-01-13 14:39 | PN ---
Progress Note, Physician History of Present Illness: doing well no issues awaiting for finalization of cx - Current Medication List Current Medications: Active Medications Piperacillin Sod/Tazobactam (Sod 3.375 gm/ Dextrose) 50 mls @ 100 mls/hr IVPB Q6H-IV [facility] Last Admin: 01/13/18 14:09 Dose: 100 mls/hr Insulin Aspart (Novolog Vial Sliding Scale -) 1 vial SQ ACHS [facility]; Protocol Last Admin: 01/13/18 12:16 Dose: 4 units Morphine Sulfate (Morphine Sulfate) 2 mg IVPUSH Q4H PRN PRN Reason: PAIN LEVEL 6 - 10 Last Admin: 01/12/18 17:41 Dose: 2 mg Ondansetron HCl (Zofran Injection) 4 mg IVPUSH Q6H PRN PRN Reason: NAUSEA AND/OR VOMITING Oxycodone HCl (Roxicodone -) 5 mg PO Q4H PRN PRN Reason: PAIN LEVEL 1-5 Last Admin: 01/12/18 03:06 Dose: 5 mg Warfarin Sodium (Coumadin -) 6 mg PO ONCE@1800 ONE Stop: 01/13/18 18:01 - Objective Vital Signs: Vital Signs Temperature 97.7 F 01/13/18 14:25 Pulse Rate 111 H 01/13/18 14:25 Respiratory Rate 18 01/13/18 14:25 Blood Pressure 91/65 01/13/18 14:25 O2 Sat by Pulse Oximetry (%) 95 01/13/18 09:00 Constitutional: Yes: No Distress, Calm Cardiovascular: Yes: Pulse Irregular Respiratory: Yes: Regular, CTA Bilaterally Gastrointestinal: Yes: Normal Bowel Sounds, Soft Musculoskeletal: Yes: WNL Extremities: Yes: Other Wound/Incision: Yes: Dressing Dry and Intact Neurological: Yes: Alert, Oriented Psychiatric: Yes: Alert, Oriented Labs: CBC, BMP 01/13/18 06:24 01/13/18 06:24 INR, PTT INR 1.28 (0.83-1.09) H 01/13/18 06:24 Assessment/Plan 52 y/o man with h/o a fib, DM , OM of L foot treated , s/p multiple amputations , L foot infection wound infection om afib patient post amputation doing well all cx reports noted plan will await for finalization of cx report once we have that will make decision if patient needs abx
--- NOTE | 2018-01-13 17:29 | PN ---
Physical Exam: SUBJECTIVE: Patient seen and examined at bedside this afternoon. Denies any acute complaints today. He is POD #2 s/p left foot trans-metatarsal amputation. He denies pain, headaches, lightheadedness, fevers, chills, shortness of breath , chest pain, palpitations, abdominal pain, nausea, vomiting. OBJECTIVE: Vital Signs Period Temp Pulse Resp BP Sys/Griffith Pulse Ox Last 24 Hr 97.7 F-99.4 F 80-111 18-18 91-108/60-65 95-96 GENERAL: Awake, alert, and fully oriented, in no acute distress. HEAD: Normal with no signs of trauma. EYES: Pupils equal, round and reactive to light, extraocular movements intact, sclera anicteric, conjunctiva clear. EARS, NOSE, THROAT: Oropharynx without exudates, eryrythema, lesions. Moist mucous membranes. NECK: Normal range of motion, supple without lymphadenopathy. LUNGS: Good inspiratory effort. Breath sounds equal, clear to auscultation bilaterally. No wheezes, and no crackles. HEART: Irregular rate and rhythm. Normal S1 and S2 without murmur, rub or gallop. ABDOMEN: Soft, nontender, not distended, normoactive bowel sounds, no rebound. No hepatomegaly. UPPER EXTREMITIES: 2+ radial pulses, warm, well-perfused. LOWER EXTREMITIES: Left foot bandaged s/p TMA. Clean surgical site without erythema, drainage. 2+ dorsalis pedis pulses b/l. NEUROLOGICAL: Cranial nerves II-XII intact. Sensation intact b/l upper and lower extremities. PSYCHIATRIC: Cooperative. Appropriate mood and affect. Laboratory Results - last 24 hr 01/12/18 01/13/18 01/13/18 22:53 06:24 06:24 WBC 7.2 RBC 4.08 Hgb 12.1 Hct 36.1 MCV 88.5 MCH 29.8 MCHC 33.7 RDW 14.4 Plt Count 156 MPV 10.1 PT with INR 15.20 H INR 1.28 H Sodium Potassium Chloride Carbon Dioxide Anion Gap BUN Creatinine Creat Clearance w eGFR POC Glucometer 175 Random Glucose Calcium Blood Type Antibody Screen 01/13/18 01/13/18 01/13/18 06:24 06:25 10:00 WBC RBC Hgb Hct MCV MCH MCHC RDW Plt Count MPV PT with INR INR Sodium 142 Potassium 4.0 Chloride 109 H Carbon Dioxide 25 Anion Gap 8 BUN 13 Creatinine 0.8 Creat Clearance w eGFR > 60 POC Glucometer 174 Random Glucose 149 H Calcium 8.6 Blood Type O POSITIVE Antibody Screen Negative 01/13/18 11:11 WBC RBC Hgb Hct MCV MCH MCHC RDW Plt Count MPV PT with INR INR Sodium Potassium Chloride Carbon Dioxide Anion Gap BUN Creatinine Creat Clearance w eGFR POC Glucometer 176 Random Glucose Calcium Blood Type Antibody Screen Active Medications Generic Name Dose Route Start Last Admin Trade Name Freq PRN Reason Stop Dose Admin Piperacillin Sod/Tazobactam 50 mls @ 100 mls/hr 01/11/18 21:00 01/13/18 14:09 Sod 3.375 gm/ Dextrose IVPB 100 mls/hr Q6H-IV [facility] Administration Insulin Aspart 1 vial 01/11/18 16:30 01/13/18 16:44 Novolog Vial Sliding Scale - SQ 4 units ACHS [facility] Administration Protocol Morphine Sulfate 2 mg 01/11/18 16:50 01/12/18 17:41 Morphine Sulfate IVPUSH 2 mg Q4H PRN Administration PAIN LEVEL 6 - 10 Ondansetron HCl 4 mg 01/11/18 15:06 Zofran Injection IVPUSH Q6H PRN NAUSEA AND/OR VOMITING Oxycodone HCl 5 mg 01/11/18 14:57 01/12/18 03:06 Roxicodone - PO 5 mg Q4H PRN Administration PAIN LEVEL 1-5 Warfarin Sodium 6 mg 01/13/18 18:00 01/13/18 17:02 Coumadin - PO 01/13/18 18:01 6 mg ONCE@1800 ONE Administration ASSESSMENT/PLAN: Patient is a 52 year old male with history of Afib (on Coumadin), diabetes, diabetic foot ulcer, and osteomyelitis of left foot presents with complaint of left foot pain and swelling for the past three weeks. He is now s/p TMA of left foot. Cellulitis left lower extremity secondary to diabetic foot ulcers Patient is POD #2 s/p TMA with Dr. Alvarado. -ID consult (Dr. Rodney) appreciated. Will need to establish clean surgical margins. F/U tissue culture F/U wound culture F/U anaerobic culture -Zosyn 3.375 grams IV Q6H (day 12) -Oxycodone 5mg IV Q4H PRN pain 1-5 -Morphine 2mg IV q4H PRN pain 6-10 -Zofran 4mg IV Q6H PRN for nausea Patient will follow up with Dr. Alvarado as outpatient for wound care. Afib -INR 1.28 today -Coumadin 6mg PO -Will F/U INR Diabetes -Hold Metformin -ISS ACHS -BGM ACHS FEN -No IV fluids. Encourage judicious oral hydration. -Will follow CMP -Diabetic diet Prophylaxis -SCDs b/l lower extremities. Disposition -Continue care in medical-surgical floor. Visit type - Emergency Visit Emergency Visit: Yes ED Registration Date: 01/02/18 Care time: The patient presented to the Emergency Department on the above date and was hospitalized for further evaluation of their emergent condition. - New Patient This patient is new to me today: No - Critical Care Critical Care patient: No - Discharge Referral Referred to [facility] Med P.C.: No
[2018-01-13] MEDS ORDERED: WARFARIN NA 3 MG TABLET PO ONE (18:00)
--- NOTE | 2018-01-13 21:18 | PN ---
Teaching Attending Note Name of Resident: Urbano Kanarunnicolette ATTENDING PHYSICIAN STATEMENT I saw and evaluated the patient. I reviewed the resident's note and discussed the case with the resident. I agree with the resident's findings and plan as documented. SUBJECTIVE: Patient is comfortable with no acute distress. OBJECTIVE: Vital Signs Temperature 98.2 F 01/13/18 18:13 Pulse Rate 112 H 01/13/18 18:13 Respiratory Rate 18 01/13/18 18:13 Blood Pressure 95/73 01/13/18 18:13 O2 Sat by Pulse Oximetry (%) 95 01/13/18 09:00 GENERAL: Awake, alert, and fully oriented, in no acute distress. HEAD: Normal with no signs of trauma. EYES: Pupils equal, round and reactive to light, extraocular movements intact, sclera anicteric, conjunctiva clear. EARS, NOSE, THROAT: Oropharynx without exudates, eryrythema, lesions. Moist mucous membranes. NECK: Normal range of motion, supple without lymphadenopathy. LUNGS:GAE Bl. Breath sounds equal, clear to auscultation bilaterally. No wheezes , and no crackles. HEART: Irregular rate and rhythm. Normal S1 and S2 without murmur, rub or gallop. ABDOMEN: Soft, nontender, not distended, normoactive bowel sounds, no guarding, no rebound, no masses. No hepatomegaly or splenomegaly. UPPER EXTREMITIES: 2+ radial pulses, warm, well-perfused. LOWER EXTREMITIES: Left foot bandaged s/p TMA. 2+ dorsalis pedis pulses b/l. NEUROLOGICAL: Cranial nerves II-XII intact. Sensation intact b/l upper and lower extremities. PSYCHIATRIC: Cooperative. Appropriate mood and affect. CBCD WBC 7.2 K/mm3 (4.0-10.0) 01/13/18 06:24 RBC 4.08 M/mm3 (4.00-5.60) 01/13/18 06:24 Hgb 12.1 GM/dL (11.7-16.9) 01/13/18 06:24 Hct 36.1 % (35.4-49) 01/13/18 06:24 MCV 88.5 fl (80-96) 01/13/18 06:24 MCHC 33.7 g/dl (32.0-35.9) 01/13/18 06:24 RDW 14.4 % (11.9-15.9) 01/13/18 06:24 Plt Count 156 K/MM3 (134-434) 01/13/18 06:24 MPV 10.1 fl (7.5-11.1) 01/13/18 06:24 CMP Sodium 142 mmol/L (136-145) 01/13/18 06:24 Potassium 4.0 mmol/L (3.5-5.1) 01/13/18 06:24 Chloride 109 mmol/L (98-107) H 01/13/18 06:24 Carbon Dioxide 25 mmol/L (21-32) 01/13/18 06:24 Anion Gap 8 MMOL/L (8-16) 01/13/18 06:24 BUN 13 mg/dL (7-18) 01/13/18 06:24 Creatinine 0.8 mg/dL (0.55-1.3) 01/13/18 06:24 Creat Clearance w eGFR > 60 (>60) 01/13/18 06:24 Random Glucose 149 mg/dL (74-106) H 01/13/18 06:24 Calcium 8.6 mg/dL (8.5-10.1) 01/13/18 06:24 Total Bilirubin 0.4 mg/dL (0.2-1) 01/12/18 06:00 AST 22 U/L (15-37) 01/12/18 06:00 ALT 30 U/L (13-61) 01/12/18 06:00 Alkaline Phosphatase 75 U/L (45-117) 01/12/18 06:00 Total Protein 6.7 g/dl (6.4-8.2) 01/12/18 06:00 Albumin 3.3 g/dl (3.4-5.0) L 01/12/18 06:00 Current Medications Generic Name Dose Route Start Last Admin Trade Name Freq PRN Reason Stop Dose Admin Piperacillin Sod/Tazobactam 50 mls @ 100 mls/hr 01/11/18 21:00 01/13/18 14:09 Sod 3.375 gm/ Dextrose IVPB 100 mls/hr Q6H-IV [facility] Administration Insulin Aspart 1 vial 01/11/18 16:30 01/13/18 16:44 Novolog Vial Sliding Scale - SQ 4 units ACHS [facility] Administration Protocol Morphine Sulfate 2 mg 01/11/18 16:50 01/12/18 17:41 Morphine Sulfate IVPUSH 2 mg Q4H PRN Administration PAIN LEVEL 6 - 10 Ondansetron HCl 4 mg 01/11/18 15:06 Zofran Injection IVPUSH Q6H PRN NAUSEA AND/OR VOMITING Oxycodone HCl 5 mg 01/11/18 14:57 01/12/18 03:06 Roxicodone - PO 5 mg Q4H PRN Administration PAIN LEVEL 1-5 Home Medications Medication Instructions Recorded Metformin HCl [Glucophage] 1,000 mg PO BID 01/02/18 Warfarin Sodium [Coumadin] 6 mg PO HS 01/02/18 ASSESSMENT AND PLAN: Patient is 52 y/o man with h/o a fib, DM , OM of L foot , s/p multiple amputations, who is being treated for foot infection # L foot diabetic ulcer and chronic OM: s/p TMA , cont zosyn, s/p vanco, follow bone cx and pathology report pending # A fib: cont toprol. resume coumadin, PT/INR . d/w Dr. Alvarado . # DM : SSI DVT Px: Coumadin
[2018-01-13] MEDS ORDERED: INSULIN (LEVEMIR) 100 UNITS/ML UNITS SQ ONE (22:15)
[2018-01-14] MEDS ORDERED: PIPERACILLIN/TAZOBACTAM 3.375 GM VIAL IVPB ONE ×2 (00:01→08:56)
[2018-01-14] MEDS ORDERED: DEXTROSE 5%-WATER - 50 ML IVPB ONE ×2 (00:01→08:57)
[2018-01-14] MEDS: PIPERACILLIN/TAZOB 3.375 GM 3.375 GM in DEXTROSE 5%-WATER - 50 ML IVPB SCH ×2 (02:44→09:14)
[2018-01-14] MEDS: INSULIN SLIDING SCALE (NOVOLOG) 1 VIAL SQ SCH ×3 (06:24→16:35)
[2018-01-14 07:50] LABS: HEMATOCRIT 36.1 % (35.4-49); HEMOGLOBIN 12.2 GM/dL (11.7-16.9); MCH 29.9 pg (25.7-33.7); MCHC 33.6 g/dl (32.0-35.9); MEAN CELL VOLUME 88.8 fl (80-96); PLATELET COUNT 148 K/MM3 (134-434); RBC 4.07 M/mm3 (4.00-5.60); RDW 14.3 % (11.9-15.9); WHITE BLOOD COUNT 6.1 K/mm3 (4.0-10.0)
[2018-01-14 07:57] LABS: INR 1.66 (0.83-1.09); PROTHROMBIN TIME (PATIENT) 19.7 SEC (9.7-13.0)
[2018-01-14 08:03] LABS: ANION GAP 6 MMOL/L (8-16); BLOOD UREA NITROGEN 13 mg/dL (7-18); CALCIUM 8.4 mg/dL (8.5-10.1); CHLORIDE 107 mmol/L (98-107); CO2 26 mmol/L (21-32); CREATININE 0.8 mg/dL (0.55-1.3); GLUCOSE,RANDOM 119 mg/dL (74-106); POTASSIUM 4.2 mmol/L (3.5-5.1); SODIUM 139 mmol/L (136-145)
--- NOTE | 2018-01-14 11:47 | PN ---
Progress Note, Physician History of Present Illness: patient doing well no issues all cx reports noted no issues - Current Medication List Current Medications: Active Medications Piperacillin Sod/Tazobactam (Sod 3.375 gm/ Dextrose) 50 mls @ 100 mls/hr IVPB Q6H-IV TOSHIA Last Admin: 01/14/18 09:14 Dose: 100 mls/hr Insulin Aspart (Novolog Vial Sliding Scale -) 1 vial SQ ACHS TOSHIA; Protocol Last Admin: 01/14/18 06:24 Dose: 2 units Morphine Sulfate (Morphine Sulfate) 2 mg IVPUSH Q4H PRN PRN Reason: PAIN LEVEL 6 - 10 Last Admin: 01/12/18 17:41 Dose: 2 mg Ondansetron HCl (Zofran Injection) 4 mg IVPUSH Q6H PRN PRN Reason: NAUSEA AND/OR VOMITING Oxycodone HCl (Roxicodone -) 5 mg PO Q4H PRN PRN Reason: PAIN LEVEL 1-5 Last Admin: 01/12/18 03:06 Dose: 5 mg Warfarin Sodium (Coumadin -) 7.5 mg PO ONCE@1800 ONE Stop: 01/14/18 18:01 Warfarin Sodium (Coumadin -) 6 mg PO DAILY@1800 TOSHIA - Objective Vital Signs: Vital Signs Temperature 97.9 F 01/14/18 09:53 Pulse Rate 100 H 01/14/18 09:53 Respiratory Rate 20 01/14/18 09:53 Blood Pressure 116/70 01/14/18 09:53 O2 Sat by Pulse Oximetry (%) 97 01/13/18 21:00 Constitutional: Yes: No Distress, Calm Cardiovascular: Yes: S1, S2 Respiratory: Yes: Regular, CTA Bilaterally Gastrointestinal: Yes: Normal Bowel Sounds, Soft Musculoskeletal: Yes: WNL Extremities: Yes: Other Wound/Incision: Yes: Dressing Dry and Intact Neurological: Yes: Alert, Oriented Psychiatric: Yes: Alert, Oriented Labs: CBC, BMP 01/14/18 06:00 01/14/18 06:00 INR, PTT INR 1.66 (0.83-1.09) H 01/14/18 06:00 Assessment/Plan 52 y/o man with h/o a fib, DM , OM of L foot treated , s/p multiple amputations , L foot infection wound infection om afib patient post amputation doing well all cx reports noted plan patient does not need any abx finalization of cx showing no growth wound care rest as per the team
[2018-01-14] MEDS ORDERED: INSULIN (NOVOLOG) ASPART 100 UNITS/ML 10ML VIAL ONE (12:13)
--- NOTE | 2018-01-14 13:31 | PN ---
Physical Exam: SUBJECTIVE: Patient seen and examined at bedside this afternoon. Denies any acute complaints today. He is POD #3 s/p left foot trans-metatarsal amputation. He denies pain at the leg, headaches, lightheadedness, fevers, chills, shortness of breath, chest pain, palpitations, abdominal pain, nausea, vomiting. OBJECTIVE: Vital Signs Period Temp Pulse Resp BP Sys/Griffith Pulse Ox Last 24 Hr 97.4 F-98.6 F 99-112 18-20 91-116/62-77 97 GENERAL: Awake, alert, and fully oriented, in no acute distress. HEAD: Normal with no signs of trauma. EYES: Pupils equal, round and reactive to light, extraocular movements intact, sclera anicteric, conjunctiva clear. EARS, NOSE, THROAT: Oropharynx without exudates, eryrythema, lesions. Moist mucous membranes. NECK: Normal range of motion, supple without lymphadenopathy. LUNGS: Good inspiratory effort. Breath sounds equal, clear to auscultation bilaterally. No wheezes, and no crackles. HEART: Irregular rate and rhythm. Normal S1 and S2 without murmur, rub or gallop. ABDOMEN: Soft, nontender, not distended, normoactive bowel sounds, no rebound. No hepatomegaly. UPPER EXTREMITIES: 2+ radial pulses, warm, well-perfused. LOWER EXTREMITIES: Left foot bandaged s/p TMA. Clean surgical site without erythema, drainage. 2+ dorsalis pedis pulses b/l. NEUROLOGICAL: Cranial nerves II-XII intact. Sensation intact b/l upper and lower extremities. PSYCHIATRIC: Cooperative. Appropriate mood and affect. Laboratory Results - last 24 hr 01/13/18 01/13/18 01/14/18 16:33 20:57 05:56 WBC RBC Hgb Hct MCV MCH MCHC RDW Plt Count MPV PT with INR INR Sodium Potassium Chloride Carbon Dioxide Anion Gap BUN Creatinine Creat Clearance w eGFR POC Glucometer 195 207 117 Random Glucose Calcium 01/14/18 01/14/18 01/14/18 06:00 06:00 06:00 WBC 6.1 RBC 4.07 Hgb 12.2 Hct 36.1 MCV 88.8 MCH 29.9 MCHC 33.6 RDW 14.3 Plt Count 148 MPV 10.0 PT with INR 19.70 H INR 1.66 H Sodium 139 Potassium 4.2 Chloride 107 Carbon Dioxide 26 Anion Gap 6 L BUN 13 Creatinine 0.8 Creat Clearance w eGFR > 60 POC Glucometer Random Glucose 119 H Calcium 8.4 L 01/14/18 11:46 WBC RBC Hgb Hct MCV MCH MCHC RDW Plt Count MPV PT with INR INR Sodium Potassium Chloride Carbon Dioxide Anion Gap BUN Creatinine Creat Clearance w eGFR POC Glucometer 145 Random Glucose Calcium Active Medications Generic Name Dose Route Start Last Admin Trade Name Freq PRN Reason Stop Dose Admin Insulin Aspart 1 vial 01/11/18 16:30 01/14/18 12:16 Novolog Vial Sliding Scale - SQ 2 units ACHS [facility] Administration Protocol Morphine Sulfate 2 mg 01/11/18 16:50 01/12/18 17:41 Morphine Sulfate IVPUSH 2 mg Q4H PRN Administration PAIN LEVEL 6 - 10 Ondansetron HCl 4 mg 01/11/18 15:06 Zofran Injection IVPUSH Q6H PRN NAUSEA AND/OR VOMITING Oxycodone HCl 5 mg 01/11/18 14:57 01/12/18 03:06 Roxicodone - PO 5 mg Q4H PRN Administration PAIN LEVEL 1-5 Warfarin Sodium 7.5 mg 01/14/18 18:00 Coumadin - PO 01/14/18 18:01 ONCE@1800 ONE Warfarin Sodium 6 mg 01/15/18 18:00 Coumadin - PO DAILY@1800 [facility] ASSESSMENT/PLAN: Patient is a 52 year old male with history of Afib (on Coumadin), diabetes, diabetic foot ulcer, and osteomyelitis of left foot presents with complaint of left foot pain and swelling for the past three weeks. He is now s/p TMA of left foot. Cellulitis left lower extremity secondary to diabetic foot ulcers Patient is POD #3 s/p TMA with Dr. Alvarado. -ID consult (Dr. Rodney) appreciated. Patient does not need further antibiotics as outpatient. tissue culture F/U wound culture F/U anaerobic culture -Discontinue zosyn (completed 13 days course) -Oxycodone 5mg IV Q4H PRN pain 1-5 -Morphine 2mg IV q4H PRN pain 6-10 -Zofran 4mg IV Q6H PRN for nausea Patient will follow up with Dr. Alvarado as outpatient for wound care. Afib -INR 1.66 today -Coumadin 7.5mg PO tonight (home dose coumadin 6mg PO daily) -F/U INR daily Diabetes -Hold Metformin -ISS ACHS -BGM ACHS FEN -No IV fluids. Encourage judicious oral hydration. -Will follow CMP -Diabetic diet Prophylaxis -SCDs b/l lower extremities. -Coumadin for Afib Disposition -Continue care in medical-surgical floor. Discharge Summary Patient is a 52 year old male with history of Afib (on Coumadin), diabetes, diabetic foot ulcer, and osteomyelitis of left foot presents with complaint of left foot pain and swelling for the past three weeks. He was treated with Zosyn per ID recommendations, and Vancomycin was later added on for MRSA. Patient evaluated by podiatry, and patient underwent transmetatarsal amputation left foot. Tolerated procedure well. Bone, wound, and anaerobic cultures were negative, and per ID recommendations, patient did not require further antibiotics. Discharged home to continue home medications Coumadin and Metformin , and to follow up with Dr. Alvarado, and Dr. Mijares within one week of discharge.
[2018-01-14] MEDS ORDERED: ENOXAPARIN NA (PORCINE) 40 MG/0.4 ML DISP.SYRIN SQ ONE (15:16)
[2018-01-14] MEDS ORDERED: ENOXAPARIN NA (PORCINE) 80 MG/0.8 ML DISP.SYRIN SQ ONE (15:16)
[2018-01-14 15:29] VITALS: BP 107/80; PULSE 99; TEMP 98.6
--- NOTE | 2018-01-14 15:57 | PN ---
Teaching Attending Note Name of Resident: Urbano Kanarunnicolette ATTENDING PHYSICIAN STATEMENT I saw and evaluated the patient. I reviewed the resident's note and discussed the case with the resident. I agree with the resident's findings and plan as documented. SUBJECTIVE: Patient is comfortable with no acute distress. No shortness of breath. OBJECTIVE: Vital Signs Temperature 98.6 F 01/14/18 15:27 Pulse Rate 99 H 01/14/18 15:27 Respiratory Rate 20 01/14/18 15:27 Blood Pressure 107/80 01/14/18 15: O2 Sat by Pulse Oximetry (%) 97 01/14/18 09:00 GENERAL: Awake, alert, and fully oriented, in no acute distress. HEAD: Normal with no signs of trauma. EYES: Pupils equal, round and reactive to light, extraocular movements intact, sclera anicteric, conjunctiva clear. EARS, NOSE, THROAT: Oropharynx without exudates, eryrythema, lesions. Moist mucous membranes. NECK: Normal range of motion, supple without lymphadenopathy. LUNGS:GAE Bl. Breath sounds equal, clear to auscultation bilaterally. No wheezes , and no crackles. HEART: Irregular rate and rhythm. Normal S1 and S2 without murmur, rub or gallop. ABDOMEN: Soft, nontender, not distended, normoactive bowel sounds, no guarding, no rebound, no masses. EXTREMITIES: Left foot bandaged s/p TMA. 2+ dorsalis pedis pulses b/l. NEUROLOGICAL: Cranial nerves II-XII intact. Sensation intact b/l upper and lower extremities. PSYCHIATRIC: Cooperative. Appropriate mood and affect. CBCD WBC 6.1 K/mm3 (4.0-10.0) 01/14/18 06:00 RBC 4.07 M/mm3 (4.00-5.60) 01/14/18 06:00 Hgb 12.2 GM/dL (11.7-16.9) 01/14/18 06:00 Hct 36.1 % (35.4-49) 01/14/18 06:00 MCV 88.8 fl (80-96) 01/14/18 06:00 MCHC 33.6 g/dl (32.0-35.9) 01/14/18 06:00 RDW 14.3 % (11.9-15.9) 01/14/18 06:00 Plt Count 148 K/MM3 (134-434) 01/14/18 06:00 MPV 10.0 fl (7.5-11.1) 01/14/18 06:00 CMP Sodium 139 mmol/L (136-145) 01/14/18 06:00 Potassium 4.2 mmol/L (3.5-5.1) 01/14/18 06:00 Chloride 107 mmol/L (98-107) 01/14/18 06:00 Carbon Dioxide 26 mmol/L (21-32) 01/14/18 06:00 Anion Gap 6 MMOL/L (8-16) L 01/14/18 06:00 BUN 13 mg/dL (7-18) 01/14/18 06:00 Creatinine 0.8 mg/dL (0.55-1.3) 01/14/18 06:00 Creat Clearance w eGFR > 60 (>60) 01/14/18 06:00 Random Glucose 119 mg/dL (74-106) H 01/14/18 06:00 Calcium 8.4 mg/dL (8.5-10.1) L 01/14/18 06:00 Total Bilirubin 0.4 mg/dL (0.2-1) 01/12/18 06:00 AST 22 U/L (15-37) 01/12/18 06:00 ALT 30 U/L (13-61) 01/12/18 06:00 Alkaline Phosphatase 75 U/L (45-117) 01/12/18 06:00 Total Protein 6.7 g/dl (6.4-8.2) 01/12/18 06:00 Albumin 3.3 g/dl (3.4-5.0) L 01/12/18 06:00 Current Medications Generic Name Dose Route Start Last Admin Trade Name Freq PRN Reason Stop Dose Admin Insulin Aspart 1 vial 01/11/18 16:30 01/14/18 12:16 Novolog Vial Sliding Scale - SQ 2 units ACHS TOSHIA Administration Protocol Morphine Sulfate 2 mg 01/11/18 16:50 01/12/18 17:41 Morphine Sulfate IVPUSH 2 mg Q4H PRN Administration PAIN LEVEL 6 - 10 Ondansetron HCl 4 mg 01/11/18 15:06 Zofran Injection IVPUSH Q6H PRN NAUSEA AND/OR VOMITING Warfarin Sodium 7.5 mg 01/14/18 18:00 Coumadin - PO 01/14/18 18:01 ONCE@1800 ONE Warfarin Sodium 6 mg 01/15/18 18:00 Coumadin - PO DAILY@1800 [facility] Home Medications Medication Instructions Recorded Metformin HCl [Glucophage] 1,000 mg PO BID 01/02/18 Warfarin Sodium [Coumadin] 6 mg PO HS 01/02/18 Microbiology 01/11/18 14:30 Bone Gram Stain - Final 01/11/18 14:30 Bone Tissue Culture - Final NO GROWTH OF AEROBIC ORGANISMS AFTER 48 HOURS INCUBATION 01/11/18 14:30 Bone Anaerobic Culture - Final NO ANAEROBES WERE ISOLATED 01/11/18 14:30 Foot - Left Gram Stain - Final 01/11/18 14:30 Foot - Left Wound Culture - Final NO AEROBIC OR ANAEROBIC GROWTH OBTAINED. 01/04/18 09:00 Foot - Left Gram Stain - Final 01/04/18 09:00 Foot - Left Wound Culture - Final Staphylococcus Aureus 01/02/18 21:25 Blood - Peripheral Venous Blood Culture - Final NO GROWTH AFTER 5 DAYS INCUBATION 01/02/18 21:20 Blood - Peripheral Venous Blood Culture - Final NO GROWTH AFTER 5 DAYS INCUBATION 01/02/18 16:45 Foot - Left Plantar Gram Stain - Final 01/02/18 16:45 Foot - Left Plantar Wound Culture - Final Enterobacter Cloacae Staphylococcus Aureus ASSESSMENT AND PLAN: Patient is 52 y/o man with h/o a fib, DM , OM of L foot , s/p multiple amputations, who is being treated for foot infection # L foot diabetic ulcer and chronic OM: s/p TMA , completed zosyn, s/p vanco , pathology report ; No osteomyelitis. # A fib: cont toprol. On coumadin, PT/INR for Wednesday , patient has an appointment for this Wednesday to have PT/INr check, continue with coumdin 6mg daily , given a dose of Lovenox 70mg x one dose . Patient will follow with Wound clinic with Dr. Thacker. # DM : continue home meds.Discussed diet and thight control of Diabetic diet. Seen by dietition.
--- NOTE | 2018-01-14 16:04 | DS ---
Physical Exam: SUBJECTIVE: Patient seen and examined at bedside this afternoon. Denies any acute complaints today. He is POD #3 s/p left foot trans-metatarsal amputation. He denies pain at the leg, headaches, lightheadedness, fevers, chills, shortness of breath, chest pain, palpitations, abdominal pain, nausea, vomiting. OBJECTIVE: Vital Signs Period Temp Pulse Resp BP Sys/Griffith Pulse Ox Last 24 Hr 97.4 F-98.6 F 99-112 18-20 95-116/62-80 97-97 PHYSICAL EXAM GENERAL: Awake, alert, and fully oriented, in no acute distress. HEAD: Normal with no signs of trauma. EYES: Pupils equal, round and reactive to light, extraocular movements intact, sclera anicteric, conjunctiva clear. EARS, NOSE, THROAT: Oropharynx without exudates, eryrythema, lesions. Moist mucous membranes. NECK: Normal range of motion, supple without lymphadenopathy. LUNGS: Good inspiratory effort. Breath sounds equal, clear to auscultation bilaterally. No wheezes, and no crackles. HEART: Irregular rate and rhythm. Normal S1 and S2 without murmur, rub or gallop. ABDOMEN: Soft, nontender, not distended, normoactive bowel sounds, no rebound. No hepatomegaly. UPPER EXTREMITIES: 2+ radial pulses, warm, well-perfused. LOWER EXTREMITIES: Left foot bandaged s/p TMA. Clean surgical site without erythema, drainage. 2+ dorsalis pedis pulses b/l. NEUROLOGICAL: Cranial nerves II-XII intact. Sensation intact b/l upper and lower extremities. PSYCHIATRIC: Cooperative. Appropriate mood and affect. LABS Laboratory Results - last 24 hr 01/13/18 01/13/18 01/14/18 16:33 20:57 05:56 WBC RBC Hgb Hct MCV MCH MCHC RDW Plt Count MPV PT with INR INR Sodium Potassium Chloride Carbon Dioxide Anion Gap BUN Creatinine Creat Clearance w eGFR POC Glucometer 195 207 117 Random Glucose Calcium 01/14/18 01/14/18 01/14/18 06:00 06:00 06:00 WBC 6.1 RBC 4.07 Hgb 12.2 Hct 36.1 MCV 88.8 MCH 29.9 MCHC 33.6 RDW 14.3 Plt Count 148 MPV 10.0 PT with INR 19.70 H INR 1.66 H Sodium 139 Potassium 4.2 Chloride 107 Carbon Dioxide 26 Anion Gap 6 L BUN 13 Creatinine 0.8 Creat Clearance w eGFR > 60 POC Glucometer Random Glucose 119 H Calcium 8.4 L 01/14/18 11:46 WBC RBC Hgb Hct MCV MCH MCHC RDW Plt Count MPV PT with INR INR Sodium Potassium Chloride Carbon Dioxide Anion Gap BUN Creatinine Creat Clearance w eGFR POC Glucometer 145 Random Glucose Calcium HOSPITAL COURSE: Date of Admission:01/02/18 Date of Discharge: 01/14/18 Patient is a 52 year old male with history of Afib (on Coumadin), diabetes, diabetic foot ulcer, and osteomyelitis of left foot presents with complaint of left foot pain and swelling for the past three weeks. He was treated with Zosyn per ID recommendations, and Vancomycin was temporarily added on for presumptive MRSA. Patient evaluated by podiatry, and patient underwent transmetatarsal amputation left foot. Tolerated procedure well. Bone, wound, and anaerobic cultures were negative, and per ID recommendations, patient did not require further antibiotics. Discharged home to continue home medications Coumadin and Metformin, and to follow up with Dr. Alvarado within one week of discharge for wound care, and Dr. Deluca in three days for INR follow up. Minutes to complete discharge: 35 Discharge Summary Reason For Visit: DIABETIC FOOT Current Active Problems Diabetic foot ulcer (Acute) Wound of foot (Acute) Amputated toe of left foot (Chronic) Condition: Stable - Instructions Diet, Activity, Other Instructions: You were admitted for infection of your diabetic foot ulcer, and were treated with intravenous antibiotics. You were examined by the certified activities director who recommended amputation (trans- metatarsal amputation). Following the amputation there was no evidence of infection of the stump Continue taking your home medications as directed. Continue taking your Metformin and your Comadin. It is important that you follow up with your primary care physician Dr Troy Dunlap at the resident[facility] clinic. However, you will see a different doctor- Dr. Mcgregor on Wednesday01/17/2018 to check the INR. Please call [phone] to schedule the appointment. Make sure to check your blood sugar at least three times a day (in the morning before breakfast, and 1 hour after meals). Write down the values and bring with you to next doctor's appointment. Keep the foot clean and dry. Avoid any poorly fitting shoes. It is important that you follow up with the certified activities director (Dr. Alvarado) within one week of discharge. You must call the phone number provided to schedule the appointment. Please return to the nearest emergency room if you experience any fevers, chills , worsening pain, drainage from foot ulcers, chest pain, palpitations, shortness of breath, vomiting. Referrals: Kirill Mijares MD [Staff Physician] - 01/17/18 11:00 am (See Dr Mcgregor on Wednesday01/17/18 for INR check but continue to follow Dr Dunlap afterwards) Cristi Alvarado MD [Staff Physician] - 1 Week Disposition: HOME - Home Medications Comprehensive Discharge Medication List: Ambulatory Orders Metformin HCl [Glucophage] 1,000 mg PO BID 01/02/18 Warfarin Sodium [Coumadin] 6 mg PO HS 01/02/18 This patient is new to me today: No Emergency Visit: Yes ED Registration Date: 01/02/18 Care time: The patient presented to the Emergency Department on the above date and was hospitalized for further evaluation of their emergent condition. Critical Care patient: No - Discharge Referral Referred to [facility] No
[2018-01-14] MEDS ORDERED: WARFARIN NA 7.5 MG TABLET (FP) PO ONE (18:00)
[2018-01-15] MEDS ORDERED: WARFARIN NA 3 MG TABLET PO SCH (18:00)
--- NOTE | 2018-01-17 15:59 | PATH ---
Surgical Pathology Report Patient Name: REBECCA BRADLEY Med. Rec. #: [id number] /Age/Gender: 1965 (Age: 52) / M Account: [id number] Location: [facility] MED/SURG Taken: 01/11/2018 Received: 01/12/2018 Reported: 01/17/2018 Physicians: MARGIE Alexander M.D. Specimen(s) Received A: PROXIMAL BONE FROM METATARSAL LEFT FOOT B: LEFT FOOT Clinical History Diabetic left foot/osteomyelitis Final Diagnosis A. PROXIMAL BONE FROM METATARSAL, RESECTION: PORTION OF BONE WITH FOCAL REACTIVE CHANGE. NO HISTOLOGIC EVIDENCE OF OSTEOMYELITIS. B. LEFT FOREFOOT, AMPUTATION: AMPUTATED FOREFOOT WITH THREE TOES SHOWING FOCAL ACANTHOSIS, ACUTE AND CHRONIC INFLAMMATION, HISTIOCYTIC REACTION IN THE DERMIS. BONE WITH REACTIVE AND REMODELING CHANGE. NO HISTOLOGIC EVIDENCE OF OSTEOMYELITIS. VIABLE SKIN AND SOFT TISSUE MARGIN. Electronically Signed Lucita Zacarias M.D. Gross Description A. Received in formalin labeled "proximal bone from metatarsal," is a 1.2 x 1.2 x 0.7 cm lou-yellow portion of bone. The specimen is quadrasected and entirely submitted in one cassette, following decalcification. B. Received in formalin labeled "left forefoot," is an 8.0 x 5.3 x 3.1 cm proximal foot amputation including 3 digits. No discrete epidermal lesions are identified. Also received within the same container is a 7.0 x 5.0 x 2.0 cm aggregate of multiple unoriented portions of bone and soft tissue. [employer] sections are submitted in 4 cassettes as follows: 1-skin and soft tissue margin; 2-bone margins, following decalcification; 3-insurance follow up representative sections from amputation; 4-separately received bone and soft tissue, following decalcification. Additional sections are submitted as follows: 5-7-cross sections of digits, following decalcification; 8-additional separately received skin and soft tissue fragments. /01/12/201801/12/2018
== END 2018-01-14 19:06 | disposition home or self-care (01) | DRG 305 ==
LOC: JER 15:47 → JERBED 18:02 → J7W 01-03 12:02
PROVIDERS: ADMIT Internal Medicine; ATTEND Internal Medicine
PROC: 0JBR0ZZ Excision of Left Foot Subcutaneous Tissue and Fascia, Open Approach (ICD-10-PCS; 2018-01-04)
PROC: 0Y6N0ZB Detachment at Left Foot, Partial 2nd Ray, Open Approach (ICD-10-PCS; 2018-01-11)
PROC: 0Y6N0ZC Detachment at Left Foot, Partial 3rd Ray, Open Approach (ICD-10-PCS; 2018-01-11)
PROC: 0Y6N0ZD Detachment at Left Foot, Partial 4th Ray, Open Approach (ICD-10-PCS; 2018-01-11)
PROC: 0Y6N0ZF Detachment at Left Foot, Partial 5th Ray, Open Approach (ICD-10-PCS; 2018-01-11)
PROC: 0QBR0ZX Excision of Left Toe Phalanx, Open Approach, Diagnostic (ICD-10-PCS; 2018-01-11)
PROC: 0Y6N0Z9 Detachment at Left Foot, Partial 1st Ray, Open Approach (ICD-10-PCS; principal; 2018-01-11 13:00)
DX: E11.621 Type 2 diabetes mellitus with foot ulcer (principal); I48.91 Unspecified atrial fibrillation; L97.528 Non-pressure chronic ulcer of other part of left foot with other specified severity; L03.116 Cellulitis of left lower limb; M86.60 Other chronic osteomyelitis, unspecified site; I10 Essential (primary) hypertension; I48.2 Chronic atrial fibrillation; Z89.421 Acquired absence of other right toe(s); Z89.422 Acquired absence of other left toe(s); Z79.4 Long term (current) use of insulin
CPT/HCPCS: 36415; 71045-TC-FY; 73630-TC-LT; 80048; 80053; 80162; 82962; 83735; 84100; 85025; 85027; 85610; 85651; 85730; 86140; 86850; 86900; 86901; 87040; 87070; 87075; 87186; 87205; 88305-TC; 88307-TC; 88311-TC; 90688; 93005; 93010; 93923; 94760; 97116-GP; 97161-GP; 99284-25; G0008

== ENCOUNTER 2018-02-16 10:16 | Inpatient (IN) | payer OTHER ==
[2018-02-16] MEDS ORDERED: ONDANSETRON 4 MG/2 ML VIAL IVPB ONE (10:32)
[2018-02-16] MEDS ORDERED: SODIUM CHLORIDE 1,000 ML IV STA (10:32)
[2018-02-16] MEDS ORDERED: ONDANSETRON 4 MG/2 ML VIAL ONE ×2 (10:36→10:58)
[2018-02-16] MEDS ORDERED: MECLIZINE HCL 25 MG TABLET (FP) PO ONE ×2 (10:43→21:47)
[2018-02-16] MEDS ORDERED: MECLIZINE HCL 25 MG TABLET (FP) ONE (10:58)
[2018-02-16 11:04] LABS: VENOUS PH 7.38 (7.32-7.42); VENOUS PO2 29.7 mmHg (28-48)
[2018-02-16 11:18] LABS: BASO % 0.2 % (0-2.0); EOS % 0.3 % (0-4.5); HEMATOCRIT 38.2 % (35.4-49); HEMOGLOBIN 12.9 GM/dL (11.7-16.9); LYMPH % 10.7 % (8-40); MCH 29.4 pg (25.7-33.7); MCHC 33.8 g/dl (32.0-35.9); MEAN CELL VOLUME 87.1 fl (80-96); MEAN PLT VOLUME 10.1 fl (7.5-11.1); MONO % 4.1 % (3.8-10.2); NEUT % 84.7 % (42.8-82.8); PLATELET COUNT 160 K/MM3 (134-434); RBC 4.39 M/mm3 (4.00-5.60); RDW 14.6 % (11.9-15.9); WHITE BLOOD COUNT 7.5 K/mm3 (4.0-10.0)
--- NOTE | 2018-02-16 11:19 | PDOC ---
History of Present Illness - General Chief Complaint: Coffee Ground Emesis Stated Complaint: VOMITING Time Seen by Provider: 02/16/18 10:29 - History of Present Illness Initial Comments: 02/16/18 11:26 The patient is a 52 year old male with a significant PMH of diabetes (on metformin), hypertension, afib (on coumadin), and osteomyelitis(left foot) s/p amputation, who presents to the emergency department with dizziness and vomiting since last night. Pt states that last night he had sudden loss of hearing in his R ear. This was associated with a room-spinning sensation. This morning, pt states that the room-spinning persisted. He ate breakfast and subsequently began to vomit coffee-grounds colored emesis. Denies any hematemesis. Denies dark stools or BRBPR. He denies any fever, chills, nausea, diarrhea, constipation, or urinary symptoms. He denies any shortness of breath, headache. Denies weakness/numbness in any extremity. The patient denies any other complaints. Past History - Past Medical History Allergies/Adverse Reactions: Allergies Allergy/AdvReac Type Severity Reaction Status Date / Time No Known Allergies Allergy Verified 02/16/18 10:21 Home Medications: Ambulatory Orders Metformin HCl [Glucophage] 1,000 mg PO BID 01/02/18 Warfarin Sodium [Coumadin] 6 mg PO HS 01/02/18 Anemia: No Asthma: No Cancer: No Cardiac Disorders: Yes (Afib) CVA: No COPD: No DVT: No Dementia: No Diabetes: Yes Dialysis: No GI Disorders: No Disorders: No HTN: Yes Hypercholesterolemia: No Kidney Stones: No Liver Disease: No Psychiatric Problems: No Seizures: No Thyroid Disease: No Lung CA: No - Surgical History Abdominal Surgery: No Appendectomy: No Cardiac Surgery: No Cholecystectomy: No Lung Surgery: No Neurologic Surgery: No Orthopedic Surgery: Yes - Immunization History Immunization Up to Date: No - Suicide/Smoking/Psychosocial Hx Smoking History: Never smoked Have you smoked in the past 12 months: No Number of Cigarettes Smoked Daily: 0 Cigars Per Day: 0 Hx Alcohol Use: No Drug/Substance Use Hx: No Substance Use Type: None Hx Substance Use Treatment: No Review of Systems - Review of Systems Comments:: 02/16/18 11:33 GENERAL/CONSTITUTIONAL: No fever or chills. No weakness. HEAD, EYES, EARS, NOSE AND THROAT: + R ear hearing loss, No change in vision. No ear pain or discharge. No sore throat. CARDIOVASCULAR: No chest pain, no shortness of breath, no loss of consciousness RESPIRATORY: No cough, wheezing, or hemoptysis. GASTROINTESTINAL: + nausea, vomiting, no diarrhea or constipation. GENITOURINARY: No dysuria, frequency, or change in urination. MUSCULOSKELETAL: No joint or muscle swelling or pain. No neck or back pain. SKIN: No rash NEUROLOGIC: + room-spinning dizziness, no change in strength/sensation. ENDOCRINE: No increased thirst. No abnormal weight change. HEMATOLOGIC/LYMPHATIC: No anemia, easy bleeding, or history of blood clots. ALLERGIC/IMMUNOLOGIC: No hives or skin allergy. *Physical Exam - Vital Signs Last Vital Signs Temp Pulse Resp BP Pulse Ox 97.9 F 106 H 22 H 125/88 100 02/16/18 10:21 02/16/18 10:21 02/16/18 10:21 02/16/18 10:21 02/16/18 10:21 - Physical Exam Comments: 02/16/18 11:34 GENERAL: Awake, alert, and fully oriented, in no acute distress. HEAD: No signs of trauma EYES: PERRLA, EOMI, sclera anicteric, conjunctiva clear ENT: + diminished hearing R ear, Auricles normal inspection, nares patent, oropharynx clear without exudates. Moist mucosa NECK: Nontender, no stepoffs, Normal ROM, supple, no lymphadenopathy, JVD, or masses LUNGS: Breath sounds equal, clear to auscultation bilaterally. No wheezes, and no crackles HEART: Regular rate and rhythm, normal S1 and S2, no murmurs, rubs or gallops ABDOMEN: Soft, nontender, normoactive bowel sounds. No guarding, no rebound. No masses EXTREMITIES: Normal range of motion, no edema. No clubbing or cyanosis. No cords, erythema, or tenderness NEUROLOGICAL: No nystagmus, Cranial nerves II through XII intact. 5/5 strength and sensation in all extremities, Normal speech, normal gait, normal cerebellar function SKIN: Warm, Dry, normal turgor, no rashes or lesions noted. Heart Score/ECG Review - ECG Impressions Comment:: 02/16/18 11:34 atrial fibrillation, rate 91, no ANGELINA/STDs, no TWIs ED Treatment Course - LABORATORY CBC & Chemistry Diagram: 02/17/18 06:30 02/17/18 06:30 - RADIOLOGY Radiology Studies Ordered: Category Date Time Status CHEST X-RAY PORTABLE* [RAD] Stat Radiology 02/16/18 10:31 Taken Medical Decision Making - Critical Care Time Total Critical Care Time (minutes): 60 Critical Care Statement: The care of this patient involved high complexity decision making to prevent further life threatening deterioration of the patient 's condition and/or to evaluate & treat vital organ system(s) failure or risk of failure. - Medical Decision Making 02/16/18 10:58 52 M with h/o HTN, DM, afib on coumadin presenting with sudden onset R hearing loss and vertigo + coffee grounds emesis. Suspect peripheral process such as menieres or vestibular neuritis. No neuro deficits on exam to suggest CVA. Pt also with concomitant UGI bleed, on coumadin. - Labs - CT head - IVF, zofran, meclizine - PPI - Admit 02/16/18 14:23 INR >6, pt given vit K and FFP Labs otherwise wnl Dr. Lee consulted Pt admitted to Dr. Roca *DC/Admit/Observation/Transfer Diagnosis at time of Disposition: Upper GI bleed, Vertigo - Discharge Dispostion Decision to Admit order: Yes - Referrals - Patient Instructions - Post Discharge Activity - Attestations Physician Attestion: 02/16/18 14:24 I, Dr. Horace Manley MD, attest that this document has been prepared under my direction and personally reviewed by me in its entirety. I further attest, that it accurately reflects all work, treatment, procedures and medical decision -making performed by me.
[2018-02-16] MEDS ORDERED: PANTOPRAZOLE SODIUM 40 MG VIAL IVPUSH ONE (11:26)
[2018-02-16 11:28] LABS: ALBUMIN 4.2 g/dl (3.4-5.0); ALK PHOS 104 U/L (45-117); ANION GAP 8 MMOL/L (8-16); BILIRUBIN,TOTAL 0.5 mg/dL (0.2-1); BLOOD UREA NITROGEN 15 mg/dL (7-18); CALCIUM 8.6 mg/dL (8.5-10.1); CHLORIDE 103 mmol/L (98-107); CO2 26 mmol/L (21-32); CREATININE 0.8 mg/dL (0.55-1.3); GLUCOSE,RANDOM 217 mg/dL (74-106); LIPASE 108 U/L (73-393); POTASSIUM 3.8 mmol/L (3.5-5.1); SGOT/AST 23 U/L (15-37); SGPT/ALT 23 U/L (13-61); SODIUM 137 mmol/L (136-145); TOT PROT 7.9 g/dl (6.4-8.2)
[2018-02-16 11:35] LABS: PROTHROMBIN TIME (PATIENT) 79.7 SEC (9.7-13.0)
[2018-02-16 11:36] LABS: URINE APPEARANCE CLEAR; URINE BILIRUBIN NEGATIVE (<2.0 mg/dL); URINE COLOR STRAW; URINE GLUCOSE (UA) 2+ (NEGATIVE); URINE KETONE TRACE (NEGATIVE); URINE LEUK ESTERASE NEGATIVE (NEGATIVE); URINE NITRITE NEGATIVE (NEGATIVE); URINE PROTEIN NEGATIVE (NEGATIVE); URINE UROBILINOGEN NEGATIVE mg/dL (0.2-1.0)
[2018-02-16 11:38] LABS: ACTIVATED PTT 51.7 SECONDS (25.2-36.5)
[2018-02-16 12:21] LABS: ACETONE SERUM NEGATIVE (NEGATIVE)
[2018-02-16] MEDS ORDERED: PANTOPRAZOLE SODIUM 40 MG VIAL ONE ×2 (12:32→13:13)
[2018-02-16 12:36] LABS: MAGNESIUM 1.6 mg/dL (1.8-2.4)
[2018-02-16 13:02] LABS: INR 6.63 (0.83-1.09)
[2018-02-16] MEDS ORDERED: PHYTONADIONE 10 MG/1 ML AMP IVPB ONE (13:02)
[2018-02-16] MEDS ORDERED: PHYTONADIONE 10 MG/1 ML AMP ONE (13:13)
[2018-02-16] MEDS ORDERED: LORazepam 2 MG/ML SDV VIAL ONE (13:13)
[2018-02-16] MEDS: PANTOPRAZOLE SODIUM 80 MG in SODIUM CHLORIDE 100 ML IVPB SCH ×2 (13:26→22:36)
--- NOTE | 2018-02-16 19:29 | HP ---
Admitting History and Physical - Primary Care Physician PCP: Shabbir Roca - Admission History of Present Illness: 52 year old male with a significant PMH of diabetes (on metformin), hypertension , afib (on coumadin), and osteomyelitis(left foot) s/p amputation, who presents to the emergency department with dizziness and vomiting since last night. Pt states that last night he had sudden loss of hearing in his R ear. This was associated with a room-spinning sensation. This morning, pt states that the room -spinning persisted. He ate breakfast and subsequently began to vomit coffee- grounds colored emesis. Denies any hematemesis. Denies dark stools or BRBPR. He denies any fever, chills, nausea, diarrhea, constipation, or urinary symptoms. He denies any shortness of breath, headache. Denies weakness/numbness in any extremity. The patient denies any other complaints. 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 Home Medications - Allergies Allergies/Adverse Reactions: Allergies Allergy/AdvReac Type Severity Reaction Status Date / Time No Known Allergies Allergy Verified 02/16/18 10:21 - Home Medications Home Medications: Ambulatory Orders Metformin HCl [Glucophage] 1,000 mg PO BID 01/02/18 Warfarin Sodium [Coumadin] 6 mg PO HS 01/02/18 Physical Examination Vital Signs: Vital Signs Temperature 97.9 F 02/16/18 18:07 Pulse Rate 114 H 02/16/18 18:07 Respiratory Rate 20 02/16/18 18:07 Blood Pressure 143/63 02/16/18 18:07 O2 Sat by Pulse Oximetry (%) 99 02/16/18 18:07 Constitutional: Yes: No Distress HENT: Yes: Atraumatic Neck: Yes: Supple Cardiovascular: Yes: Regular Rate and Rhythm Respiratory: Yes: CTA Bilaterally Gastrointestinal: Yes: Normal Bowel Sounds Musculoskeletal: Yes: WNL Extremities: Yes: WNL Edema: No Peripheral Pulses WNL: Yes Neurological: Yes: Alert, Oriented Labs: CBC, BMP 02/16/18 10:45 02/16/18 10:45 Problem List - Problems (1) Upper GI bleed Assessment/Plan: for egd npo, ivf, iv protonix Code(s): K92.2 - GASTROINTESTINAL HEMORRHAGE, UNSPECIFIED (2) Diabetes Assessment/Plan: bgms metformin on hold as he was npo Code(s): E11.9 - TYPE 2 DIABETES MELLITUS WITHOUT COMPLICATIONS Qualifiers: (3) HTN (hypertension) Assessment/Plan: monitor Code(s): I10 - ESSENTIAL (PRIMARY) HYPERTENSION Qualifiers: (4) Afib Assessment/Plan: coumadin on hold Code(s): I48.91 - UNSPECIFIED ATRIAL FIBRILLATION Qualifiers: (5) Vertigo Assessment/Plan: on meclizine Code(s): R42 - DIZZINESS AND GIDDINESS Assessment/Plan Laboratory Tests 02/16/18 02/16/18 02/16/18 10:45 10:45 10:45 WBC 7.5 RBC 4.39 Hgb 12.9 Hct 38.2 MCV 87.1 MCH 29.4 MCHC 33.8 RDW 14.6 Plt Count 160 MPV 10.1 Absolute Neuts (auto) 6.3 Neutrophils % 84.7 H Lymphocytes % 10.7 D Monocytes % 4.1 Eosinophils % 0.3 D Basophils % 0.2 Nucleated RBC % 0 PT with INR 79.70 H INR 6.63 H* PTT (Actin FS) 51.7 H VBG pH 7.38 POC VBG pCO2 43.0 POC VBG pO2 29.7 Mixed VBG HCO3 24.7 Sodium Potassium Chloride Carbon Dioxide Anion Gap BUN Creatinine Creat Clearance w eGFR Random Glucose Lactic Acid Calcium Phosphorus Magnesium Total Bilirubin AST ALT Alkaline Phosphatase Creatine Kinase Creatine Kinase Index CK-MB (CK-2) Troponin I Total Protein Albumin Lipase Urine Color Urine Appearance Urine pH Ur Specific [place] Urine Protein Urine Glucose (UA) Urine Ketones Urine Blood Urine Nitrite Urine Bilirubin Urine Urobilinogen Ur Leukocyte Esterase Acetone, Qual Blood Type Antibody Screen 02/16/18 02/16/18 02/16/18 10:45 10:45 10:45 WBC RBC Hgb Hct MCV MCH MCHC RDW Plt Count MPV Absolute Neuts (auto) Neutrophils % Lymphocytes % Monocytes % Eosinophils % Basophils % Nucleated RBC % PT with INR INR PTT (Actin FS) VBG pH POC VBG pCO2 POC VBG pO2 Mixed VBG HCO3 Sodium 137 Potassium 3.8 Chloride 103 Carbon Dioxide 26 Anion Gap 8 BUN 15 Creatinine 0.8 Creat Clearance w eGFR > 60 Random Glucose 217 H Lactic Acid 2.2 H* Calcium 8.6 Phosphorus 1.9 L Magnesium 1.6 L Total Bilirubin 0.5 AST 23 ALT 23 Alkaline Phosphatase 104 Creatine Kinase 173 Creatine Kinase Index 1.0 CK-MB (CK-2) 1.84 Troponin I < 0.02 Total Protein 7.9 Albumin 4.2 Lipase 108 Urine Color Urine Appearance Urine pH Ur Specific [place] Urine Protein Urine Glucose (UA) Urine Ketones Urine Blood Urine Nitrite Urine Bilirubin Urine Urobilinogen Ur Leukocyte Esterase Acetone, Qual Negative Blood Type Antibody Screen 02/16/18 02/16/18 02/16/18 10:47 10:54 13:30 WBC RBC Hgb Hct MCV MCH MCHC RDW Plt Count MPV Absolute Neuts (auto) Neutrophils % Lymphocytes % Monocytes % Eosinophils % Basophils % Nucleated RBC % PT with INR INR PTT (Actin FS) VBG pH POC VBG pCO2 POC VBG pO2 Mixed VBG HCO3 Sodium Potassium Chloride Carbon Dioxide Anion Gap BUN Creatinine Creat Clearance w eGFR Random Glucose Lactic Acid 1.5 Calcium Phosphorus Magnesium Total Bilirubin AST ALT Alkaline Phosphatase Creatine Kinase Creatine Kinase Index CK-MB (CK-2) Troponin I Total Protein Albumin Lipase Urine Color Straw Urine Appearance Clear Urine pH 7.0 Ur Specific [place] 1.011 Urine Protein Negative Urine Glucose (UA) 2+ H Urine Ketones Trace H Urine Blood Negative Urine Nitrite Negative Urine Bilirubin Negative Urine Urobilinogen Negative Ur Leukocyte Esterase Negative Acetone, Qual Blood Type O POSITIVE Antibody Screen Negative Active Medications Generic Name Dose Route Start Last Admin Trade Name Freq PRN Reason Stop Dose Admin Acetaminophen 650 mg 02/17/18 09:08 Tylenol - PO Q6H PRN PAIN Sodium Chloride 1,000 mls @ 75 mls/hr 02/16/18 19:30 02/17/18 10:30 Normal Saline - IV 75 mls/hr ASDIR TOSHIA Administration Meclizine HCl 25 mg 02/17/18 15:15 Antivert - PO Q6H TOSHAI Ondansetron HCl 4 mg 02/16/18 21:48 Zofran Injection IVPUSH Q4H PRN NAUSEA AND/OR VOMITING Pantoprazole Sodium 20 mg 02/17/18 10:00 02/17/18 10:58 Protonix - PO 20 mg DAILY TOSHIA Administration Prednisone 60 mg 02/18/18 10:00 Deltasone - PO DAILY TOSHIA Pseudoephedrine HCl 30 mg 02/17/18 15:15 Sudafed - PO Q6H TOSHIA
[2018-02-16] MEDS: SODIUM CHLORIDE 1,000 ML IV SCH (20:36)
--- NOTE | 2018-02-16 20:54 | CONS ---
DATE OF CONSULTATION: DATE OF DICTATION: 02/16/2018 GASTROENTEROLOGY CONSULTATION HISTORY OF PRESENT ILLNESS: The patient is a 52-year-old man with a past medical history of diabetes on metformin, hypertension, atrial fibrillation on Coumadin, osteomyelitis of the left foot status post amputation, who presents to the emergency room with complaints of dizziness and nausea/vomiting which began last night. He states he also has experienced some right ear pain and sensation of the room spinning. He has had vertigo in the past. After having breakfast this morning , he states he vomited some dark colored emesis. Denies any hematemesis. Denies melena or hematochezia. In the ER, he was noted to have had another episode of nausea/vomiting with some coffee grounds. He denies abdominal pain except after he vomited. No history of any fevers, chills, syncope, chest pain, or palpitations. He has never had an endoscopic evaluation in the past, and no previous episodes of GI bleed. PAST MEDICAL HISTORY: As listed in the HPI. PAST SURGICAL HISTORY: As listed in the HPI. ALLERGIES: No known drug allergies. SOCIAL HISTORY: Does not smoke. Drinks socially, very rarely he states. He does not work, is currently on disability. FAMILY HISTORY: Denies any history of GI or gynecological malignancy. HOME MEDICATIONS: Include metformin and warfarin. PHYSICAL EXAMINATION: VITAL SIGNS: Temperature 97, pulse 92, blood pressure 140/63, pulse oximetry 99 % on room air. GENERAL: In no acute distress. HEENT: Anicteric sclerae. CARDIOVASCULAR: S1, S2, regular rate and rhythm. LUNGS: Bilaterally clear to auscultation. ABDOMEN: Soft, nontender. EXTREMITIES: No edema. LABORATORY: White blood cell count 7.5, hemoglobin and hematocrit 12.9/38, MCV 87, platelet count 160. INR 6.6. Sodium 137, potassium 3.8, BUN and creatinine 15/ 0.8, lactic acid was 2.2 currently 1.5, magnesium 1.6, AST 23, ALT 23, total bilirubin 0.5, creatine kinase 173, troponin negative, amylase/lipase 108. Urine 2+ glucose, trace ketones, urine culture negative. He had a head CT which reveals no significant interval change or acute intracranial pathology. He also had a chest x-ray. No evidence of pulmonary disease. IMPRESSION: Nausea, vomiting, complicated by an episode of coffee ground emesis in the setting of a super therapeutic INR. His symptoms may be secondary to esophagitis, peptic ulcer disease, or a small abdirashid mccray tear. He is currently hemodynamically stable without sign of an overt gastrointestinal bleed. RECOMMENDATION: N.p.o., IV fluids, Protonix infusion, trend CBC q.8 hours, keep hemoglobin above 10, reverse INR as per primary medical team. Will plan for an endoscopy tomorrow. Goal INR for endoscopy is 1.5 or less. This patient will be followed by the GI service. DO PEDRO BUSTILLOS/[id number] MTDD
[2018-02-16] MEDS ORDERED: ONDANSETRON 4 MG/2 ML VIAL IVPUSH PRN (21:48)
[2018-02-17 07:56] LABS: INR 1.35 (0.83-1.09)
--- NOTE | 2018-02-17 08:18 | CON.ENT ---
Consult Consult Specialty:: ENT Referred by:: Dr.. Roca Reason for Consultation:: tinnitus - History of Present Illness Chief Complaint: can't hear right ear x 2 days History of Present Illness: 52 yo M admitted 02-16-18 with emesis of coffee grounds, dizziness states felt well on 02-15-18 PM, ate dinner normally. when going to his bedroom felt dizzy with room spinning and he had nausea and vomiting, also reports hearing loss right ear starting that evening and tinnitus right ear. left ear hearing seems normal to him. denies prior ear infections or other problems. some vomitus was dark, coffee ground like, admitted for UGI bleeding [facility] records show CT and Carotid doppler in November 2017 for dizziness, but pt denies having dizziness before. 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 Home Medications - Allergies Allergies/Adverse Reactions: Allergies Allergy/AdvReac Type Severity Reaction Status Date / Time No Known Allergies Allergy Verified 02/16/18 10:21 - Home Medications Home Medications: Ambulatory Orders Metformin HCl [Glucophage] 1,000 mg PO BID 01/02/18 Warfarin Sodium [Coumadin] 6 mg PO HS 01/02/18 Physical Exam-ENT Vital Signs: Vital Signs Temperature 97.8 F 02/17/18 02:00 Pulse Rate 101 H 02/17/18 02:00 Respiratory Rate 20 02/17/18 02:00 Blood Pressure 103/59 L 02/17/18 02:00 O2 Sat by Pulse Oximetry (%) 99 02/16/18 18:07 Constitutional: Yes: Well Nourished, No Distress, Calm Head: Yes: WNL Face: Yes: WNL Eyes: Yes: WNL Nose: Yes: Septum Deviated (to left) Nasal Passage: Yes: WNL Oral/Pharynx: Yes: WNL Outer Ear: Yes: WNL Ear Canal: Yes: WNL Tympanic Membrane: Yes: WNL Neck: Yes: WNL Imaging - Results Chest X-ray: Report Reviewed Cat Scan: Report Reviewed, Image Reviewed (paranasal sinuses clear, temporal bones unremarkable, mastoids well aerated, no obvious abnormalities) Problem List - Problems (1) Hearing loss in right ear Assessment/Plan: sudden onset hearing loss right ear on 02-15-18, concurrent with right ear tinnitus and vertigo suspect Meniere's disease though acute GI bleed may be contibutory to dizziness ear exam normal, no cerumen impaction, middle ear fluid, or visible signs of any conductive hearing loss etiology Recommend: oral steroids for sudden hearing loss right ear recommend 60 mg daily x 7 days, then taper over one week this needs to be evaluated and approved then ordered by medical team, to be sure it does not interfere with any other of the patient's other acute or chronic medical conditions pt should come to office for complete audiogram once he is discharged Code(s): H91.91 - UNSPECIFIED HEARING LOSS, RIGHT EAR Qualifiers: Hearing loss type: sudden idiopathic (2) Tinnitus of right ear Assessment/Plan: sudden onset x 2 days, concurrent with subjective hearing loss right ear and vertigo, inner ear etiology suspected, possible Meniere's Code(s): H93.11 - TINNITUS, RIGHT EAR (3) Vertigo Assessment/Plan: acute vertigo CT head negative had associated nausea and vomiting (but also evidence of upper GI bleeding) Recommend: IV fluid prn antiemetic agree with meclizine 25 mg tid increase activity prn to office after discharge for further evaluation and management. Thank you for consultation, Brett Bee MD FACS Code(s): R42 - DIZZINESS AND GIDDINESS
[2018-02-17 08:45] LABS: HEMATOCRIT 36.2 % (35.4-49); HEMOGLOBIN 12.2 GM/dL (11.7-16.9); MCH 29.8 pg (25.7-33.7); MCHC 33.7 g/dl (32.0-35.9); MEAN CELL VOLUME 88.4 fl (80-96); MEAN PLT VOLUME 10.1 fl (7.5-11.1); PLATELET COUNT 143 K/MM3 (134-434); RBC 4.09 M/mm3 (4.00-5.60); RDW 14.6 % (11.9-15.9); WHITE BLOOD COUNT 4.8 K/mm3 (4.0-10.0)
[2018-02-17] MEDS ORDERED: ACETAMINOPHEN 325 MG TABLET (FP) PO PRN (09:08)
[2018-02-17 09:17] LABS: ANION GAP 8 MMOL/L (8-16); BLOOD UREA NITROGEN 10 mg/dL (7-18); CALCIUM 8.2 mg/dL (8.5-10.1); CHLORIDE 111 mmol/L (98-107); CO2 25 mmol/L (21-32); CREATININE 0.7 mg/dL (0.55-1.3); GLUCOSE,RANDOM 107 mg/dL (74-106); POTASSIUM 3.8 mmol/L (3.5-5.1); SODIUM 143 mmol/L (136-145)
[2018-02-17] MEDS ORDERED: predniSONE 20 MG TABLET (UD) PO ONE (09:30)
[2018-02-17] MEDS ORDERED: MECLIZINE HCL 25 MG TABLET (FP) PO PRN (09:31)
[2018-02-17] MEDS: PANTOPRAZOLE SODIUM 80 MG in SODIUM CHLORIDE 100 ML IVPB SCH (10:10)
[2018-02-17] MEDS: SODIUM CHLORIDE 1,000 ML IV SCH ×2 (10:30→19:34)
[2018-02-17] MEDS: PANTOPRAZOLE 20 MG TABLET (FP) PO SCH (10:58)
--- NOTE | 2018-02-17 11:50 | EKG ---
Test Reason : Blood Pressure : / mmHG Vent. Rate : 091 BPM Atrial Rate : 178 BPM P-R Int : 000 ms QRS Dur : 088 ms QT Int : 358 ms P-R-T Axes : 000 -04 -09 degrees QTc Int : 440 ms ATRIAL FIBRILLATION ABNORMAL ECG WHEN COMPARED WITH ECG OF 02-JAN-2018 17:09, QT HAS LENGTHENED Confirmed by STEPHANIE FERREIRA MD ([id number]) on 02/17/2018 11:50:17 AM Referred By: Confirmed By:STEPHANIE FERREIRA MD
--- NOTE | 2018-02-17 14:15 | PN ---
Progress Note (short form) - Note Progress Note: EGD complete. report placed in procedural section of chart and to be scanned into [employer]
--- NOTE | 2018-02-17 15:11 | PN ---
Progress Note, Physician History of Present Illness: s/p egd still feels dizy when sits up or move head - Current Medication List Current Medications: Active Medications Acetaminophen (Tylenol -) 650 mg PO Q6H PRN PRN Reason: PAIN Sodium Chloride (Normal Saline -) 1,000 mls @ 75 mls/hr IV ASDIR TOSHIA Last Admin: 02/17/18 10:30 Dose: 75 mls/hr Meclizine HCl (Antivert -) 25 mg PO Q6H TOSHIA Ondansetron HCl (Zofran Injection) 4 mg IVPUSH Q4H PRN PRN Reason: NAUSEA AND/OR VOMITING Pantoprazole Sodium (Protonix -) 20 mg PO DAILY [facility] Last Admin: 02/17/18 10:58 Dose: 20 mg Prednisone (Deltasone -) 60 mg PO DAILY TOSHIA Pseudoephedrine HCl (Sudafed -) 30 mg PO Q6H [facility] - Objective Vital Signs: Vital Signs Temperature 97.5 F L 02/17/18 15:02 Pulse Rate 100 H 02/17/18 15:02 Respiratory Rate 20 02/17/18 15:02 Blood Pressure 121/79 02/17/18 15:02 O2 Sat by Pulse Oximetry (%) 99 02/17/18 15:02 Constitutional: Yes: No Distress HENT: Yes: Atraumatic Neck: Yes: Supple Cardiovascular: Yes: Regular Rate and Rhythm Respiratory: Yes: CTA Bilaterally Gastrointestinal: Yes: Normal Bowel Sounds Extremities: Yes: WNL Edema: No Neurological: Yes: Alert, Oriented Labs: CBC, BMP 02/17/18 06:30 02/17/18 06:30 INR, PTT INR 1.35 (0.83-1.09) H 02/17/18 06:30 Problem List - Problems (1) Upper GI bleed Assessment/Plan: s/p egd report pending on diet now Code(s): K92.2 - GASTROINTESTINAL HEMORRHAGE, UNSPECIFIED (2) Diabetes Assessment/Plan: bgms metformin on hold as he was npo Code(s): E11.9 - TYPE 2 DIABETES MELLITUS WITHOUT COMPLICATIONS Qualifiers: (3) HTN (hypertension) Code(s): I10 - ESSENTIAL (PRIMARY) HYPERTENSION Qualifiers: (4) Afib Assessment/Plan: coumadin on hold Code(s): I48.91 - UNSPECIFIED ATRIAL FIBRILLATION Qualifiers: (5) Vertigo Assessment/Plan: on meclizine sudafed Code(s): R42 - DIZZINESS AND GIDDINESS (6) Hearing loss in right ear Code(s): H91.91 - UNSPECIFIED HEARING LOSS, RIGHT EAR Qualifiers: Hearing loss type: sudden idiopathic (7) Tinnitus of right ear Assessment/Plan: ent saw patient on prednisone Code(s): H93.11 - TINNITUS, RIGHT EAR
[2018-02-17] MEDS ORDERED: PT OWN MED DRAWER 7, Y5N ONE (17:24)
[2018-02-17] MEDS: MECLIZINE HCL 25 MG TABLET (FP) PO SCH ×2 (17:27→23:04)
[2018-02-17] MEDS: PSEUDOEPHEDRINE HCL 30 MG TABLET PO SCH ×2 (19:33→23:04)
[2018-02-18] MEDS: SODIUM CHLORIDE 1,000 ML IV SCH ×2 (01:13→17:32)
[2018-02-18] MEDS: PSEUDOEPHEDRINE HCL 30 MG TABLET PO SCH ×3 (06:50→18:00)
[2018-02-18] MEDS: MECLIZINE HCL 25 MG TABLET (FP) PO SCH ×3 (06:50→17:59)
[2018-02-18] MEDS: predniSONE 20 MG TABLET (UD) PO SCH (09:25)
[2018-02-18] MEDS: PANTOPRAZOLE 20 MG TABLET (FP) PO SCH (09:26)
[2018-02-18] MEDS ORDERED: PT OWN MED DRAWER 7, Y5N ONE (11:49)
--- NOTE | 2018-02-18 12:12 | CON.ID ---
Consult Consult Specialty:: loss of hearing in the ear Referred by:: Reason for Consultation:: hearing loss/r/o infectious process - History of Present Illness Chief Complaint: hearing loss History of Present Illness: 52 year old male with a significant PMH of diabetes (on metformin), hypertension , afib (on coumadin), and osteomyelitis(left foot) s/p amputation, was admitted with dizziness and vomiting 'patient mentions that he had sudden loss of hearing in his r ear which was accompanied by pain This was associated with a room-spinning sensation. This morning, pt states that the room-spinning persisted. He ate breakfast and subsequently began to vomit coffee-grounds colored emesis. Denies any hematemesis. Denies dark stools or BRBPR. He denies any fever, chills, nausea, diarrhea, constipation, or urinary symptoms. He denies any shortness of breath, headache. Denies weakness/ numbness in any extremity. The patient denies any other complaints. 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 Home Medications - Allergies Allergies/Adverse Reactions: Allergies Allergy/AdvReac Type Severity Reaction Status Date / Time No Known Allergies Allergy Verified 02/16/18 10:21 - Home Medications Home Medications: Ambulatory Orders Metformin HCl [Glucophage] 1,000 mg PO BID 01/02/18 Warfarin Sodium [Coumadin] 6 mg PO HS 01/02/18 Metoprolol Succinate [Toprol XL -] 12.5 mg PO DAILY #30 tab.sr.24h 02/22/18 Pantoprazole Sodium [Protonix -] 20 mg PO DAILY #30 tablet.ec 02/22/18 Prednisone 10 mg PO ASDIR #60 tablet 02/22/18 Review of Systems - Review of Systems Constitutional: reports: No Symptoms Eyes: reports: No Symptoms HENT: reports: Hearing Loss (rt ear), Ringing in Ears Neck: reports: No Symptoms Cardiovascular: reports: No Symptoms Respiratory: reports: No Symptoms Gastrointestinal: reports: No Symptoms Genitourinary: reports: No Symptoms Musculoskeletal: reports: No Symptoms Integumentary: reports: No Symptoms Neurological: reports: No Symptoms Endocrine: reports: No Symptoms Hematology/Lymphatic: reports: No Symptoms Psychiatric: reports: No Symptoms Physical Exam Vital Signs: Vital Signs Temperature 98.2 F 02/18/18 09:23 Pulse Rate 114 H 02/18/18 09:23 Respiratory Rate 20 02/18/18 09:23 Blood Pressure 137/76 02/18/18 09:23 O2 Sat by Pulse Oximetry (%) 98 02/18/18 01:49 Constitutional: Yes: Well Nourished, Calm, Mild Distress Eyes: Yes: Conjunctiva Clear HENT: Yes: Other (loss of hearing in rt ear with pain no discharge noted) Neck: Yes: Supple, Trachea Midline Cardiovascular: Yes: Pulse Irregular Respiratory: Yes: Regular, CTA Bilaterally Gastrointestinal: Yes: Normal Bowel Sounds, Soft Musculoskeletal: Yes: WNL Extremities: Yes: WNL Neurological: Yes: Alert, Oriented Psychiatric: Yes: Alert, Oriented Labs: CBC, BMP 02/17/18 06:30 02/17/18 06:30 Imaging - Results Chest X-ray: Report Reviewed, Image Reviewed Cat Scan: Report Reviewed, Image Reviewed Assessment/Plan problem List - Problems (1) Upper GI bleed Code(s): K92.2 - GASTROINTESTINAL HEMORRHAGE, UNSPECIFIED (2) Diabetes Code(s): E11.9 - TYPE 2 DIABETES MELLITUS WITHOUT COMPLICATIONS Qualifiers: (3) HTN (hypertension) Code(s): I10 - ESSENTIAL (PRIMARY) HYPERTENSION Qualifiers: (4) Afib Code(s): I48.91 - UNSPECIFIED ATRIAL FIBRILLATION Qualifiers: (5) Vertigo Code(s): R42 - DIZZINESS AND GIDDINESS 6 deafness rt ear plan ent no abx at this time all results noted monitor for fevers probably could be due to viral illness
--- NOTE | 2018-02-18 18:46 | PN ---
Progress Note, Physician History of Present Illness: r ear ache - Current Medication List Current Medications: Active Medications Acetaminophen (Tylenol -) 650 mg PO Q6H PRN PRN Reason: PAIN Meclizine HCl (Antivert -) 25 mg PO Q6HPO [facility] Last Admin: 02/18/18 17:59 Dose: 25 mg Non-Formulary Medication (Metformin Hcl [Glucophage]) 1,000 mg PO BID [facility] Non-Formulary Medication (Warfarin Sodium [Coumadin]) 6 mg PO HS [facility] Ondansetron HCl (Zofran Injection) 4 mg IVPUSH Q4H PRN PRN Reason: NAUSEA AND/OR VOMITING Pantoprazole Sodium (Protonix -) 20 mg PO DAILY [facility] Last Admin: 02/18/18 09:26 Dose: 20 mg Prednisone (Deltasone -) 60 mg PO DAILY [facility] Last Admin: 02/18/18 09:25 Dose: 60 mg Pseudoephedrine HCl (Sudafed -) 30 mg PO Q6HPO [facility] Last Admin: 02/18/18 18:00 Dose: 30 mg - Objective Vital Signs: Vital Signs Temperature 98.3 F 02/18/18 14:15 Pulse Rate 118 H 02/18/18 14:15 Respiratory Rate 18 02/18/18 14:15 Blood Pressure 125/84 02/18/18 14:15 O2 Sat by Pulse Oximetry (%) 98 02/18/18 01:49 Constitutional: Yes: No Distress HENT: Yes: Atraumatic Neck: Yes: Supple Cardiovascular: Yes: Regular Rate and Rhythm Respiratory: Yes: CTA Bilaterally Gastrointestinal: Yes: Normal Bowel Sounds Extremities: Yes: WNL Edema: No Neurological: Yes: Alert, Oriented Labs: CBC, BMP 02/17/18 06:30 02/17/18 06:30 INR, PTT INR 1.35 (0.83-1.09) H 02/17/18 06:30 Problem List - Problems (1) Upper GI bleed Assessment/Plan: resolved tolerating diet on protonix Code(s): K92.2 - GASTROINTESTINAL HEMORRHAGE, UNSPECIFIED (2) Diabetes Assessment/Plan: bgms start metformin Code(s): E11.9 - TYPE 2 DIABETES MELLITUS WITHOUT COMPLICATIONS Qualifiers: (3) HTN (hypertension) Assessment/Plan: monitor Code(s): I10 - ESSENTIAL (PRIMARY) HYPERTENSION Qualifiers: (4) Afib Assessment/Plan: coumadin will start monitor inr Code(s): I48.91 - UNSPECIFIED ATRIAL FIBRILLATION Qualifiers: (5) Vertigo Assessment/Plan: on meclizine sudafed Code(s): R42 - DIZZINESS AND GIDDINESS
[2018-02-18] MEDS: WARFARIN NA 3 MG TABLET PO SCH (19:01)
[2018-02-18] MEDS: metFORMIN HCL 500 MG TABLET (FP) PO SCH (19:01)
[2018-02-18 19:31] LABS: HEMATOCRIT 37.2 % (35.4-49); HEMOGLOBIN 12.6 GM/dL (11.7-16.9); MCH 30.2 pg (25.7-33.7); MCHC 33.9 g/dl (32.0-35.9); MEAN CELL VOLUME 89.3 fl (80-96); MEAN PLT VOLUME 10.6 fl (7.5-11.1); PLATELET COUNT 174 K/MM3 (134-434); RBC 4.17 M/mm3 (4.00-5.60); RDW 14.7 % (11.9-15.9); WHITE BLOOD COUNT 6.3 K/mm3 (4.0-10.0)
[2018-02-19] MEDS ORDERED: PT OWN MED DRAWER 7, Y5N ONE ×4 (01:01→17:35)
[2018-02-19] MEDS: MECLIZINE HCL 25 MG TABLET (FP) PO SCH ×5 (01:09→23:25)
[2018-02-19] MEDS: PSEUDOEPHEDRINE HCL 30 MG TABLET PO SCH ×5 (01:09→23:25)
[2018-02-19] MEDS: metFORMIN HCL 500 MG TABLET (FP) PO SCH ×2 (06:05→16:40)
[2018-02-19 08:15] LABS: INR 1.21 (0.83-1.09); PROTHROMBIN TIME (PATIENT) 14.3 SEC (9.7-13.0)
[2018-02-19] MEDS: PANTOPRAZOLE 20 MG TABLET (FP) PO SCH (09:14)
[2018-02-19] MEDS: predniSONE 20 MG TABLET (UD) PO SCH (09:14)
--- NOTE | 2018-02-19 12:01 | PN ---
Progress Note, Physician History of Present Illness: r ear ache - Current Medication List Current Medications: Active Medications Acetaminophen (Tylenol -) 650 mg PO Q6H PRN PRN Reason: PAIN Meclizine HCl (Antivert -) 25 mg PO Q6HPO [facility] Last Admin: 02/19/18 06:05 Dose: 25 mg Metformin HCl (Glucophage -) 1,000 mg PO BIDAC [facility] Last Admin: 02/19/18 06:05 Dose: 1,000 mg Ondansetron HCl (Zofran Injection) 4 mg IVPUSH Q4H PRN PRN Reason: NAUSEA AND/OR VOMITING Pantoprazole Sodium (Protonix -) 20 mg PO DAILY [facility] Last Admin: 02/19/18 09:14 Dose: 20 mg Prednisone (Deltasone -) 60 mg PO DAILY [facility] Last Admin: 02/19/18 09:14 Dose: 60 mg Pseudoephedrine HCl (Sudafed -) 30 mg PO Q6HPO [facility] Last Admin: 02/19/18 06:04 Dose: 30 mg Warfarin Sodium (Coumadin -) 6 mg PO DAILY@1800 [facility] Last Admin: 02/18/18 19:01 Dose: 6 mg - Objective Vital Signs: Vital Signs Temperature 98.1 F 02/19/18 10:00 Pulse Rate 100 H 02/19/18 10:00 Respiratory Rate 20 02/19/18 10:00 Blood Pressure 127/60 02/19/18 10:00 O2 Sat by Pulse Oximetry (%) 99 02/19/18 02:00 Constitutional: Yes: Calm HENT: Yes: Atraumatic Neck: Yes: Supple Cardiovascular: Yes: Regular Rate and Rhythm Respiratory: Yes: CTA Bilaterally Gastrointestinal: Yes: Normal Bowel Sounds Extremities: Yes: WNL Edema: No Peripheral Pulses WNL: Yes Neurological: Yes: Alert, Oriented Labs: CBC, BMP 02/18/18 19:00 02/17/18 06:30 INR, PTT INR 1.21 (0.83-1.09) H 02/19/18 06:10 Problem List - Problems (1) Upper GI bleed Assessment/Plan: resolved tolerating diet on protonix Code(s): K92.2 - GASTROINTESTINAL HEMORRHAGE, UNSPECIFIED (2) Diabetes Assessment/Plan: bgms start metformin Code(s): E11.9 - TYPE 2 DIABETES MELLITUS WITHOUT COMPLICATIONS Qualifiers: (3) HTN (hypertension) Assessment/Plan: monitor Code(s): I10 - ESSENTIAL (PRIMARY) HYPERTENSION Qualifiers: (4) Afib Assessment/Plan: coumadin will start monitor inr Code(s): I48.91 - UNSPECIFIED ATRIAL FIBRILLATION Qualifiers: (5) Vertigo Assessment/Plan: on meclizine sudafed Code(s): R42 - DIZZINESS AND GIDDINESS
--- NOTE | 2018-02-19 14:08 | PN ---
Progress Note, Physician History of Present Illness: patient with doing well c/o of pain in the rt ear all cx reports noted - Current Medication List Current Medications: Active Medications Acetaminophen (Tylenol -) 650 mg PO Q6H PRN PRN Reason: PAIN Meclizine HCl (Antivert -) 25 mg PO Q6HPO [facility] Last Admin: 02/19/18 12:25 Dose: 25 mg Metformin HCl (Glucophage -) 1,000 mg PO BIDAC [facility] Last Admin: 02/19/18 06:05 Dose: 1,000 mg Ondansetron HCl (Zofran Injection) 4 mg IVPUSH Q4H PRN PRN Reason: NAUSEA AND/OR VOMITING Pantoprazole Sodium (Protonix -) 20 mg PO DAILY [facility] Last Admin: 02/19/18 09:14 Dose: 20 mg Prednisone (Deltasone -) 60 mg PO DAILY [facility] Last Admin: 02/19/18 09:14 Dose: 60 mg Pseudoephedrine HCl (Sudafed -) 30 mg PO Q6HPO [facility] Last Admin: 02/19/18 12:25 Dose: 30 mg Warfarin Sodium (Coumadin -) 6 mg PO DAILY@1800 [facility] Last Admin: 02/18/18 19:01 Dose: 6 mg - Objective Vital Signs: Vital Signs Temperature 98.1 F 02/19/18 10:00 Pulse Rate 100 H 02/19/18 10:00 Respiratory Rate 20 02/19/18 10:00 Blood Pressure 127/60 02/19/18 10:00 O2 Sat by Pulse Oximetry (%) 99 02/19/18 02:00 Constitutional: Yes: Calm, Mild Distress HENT: Yes: Other (hearing loss rt ear) Cardiovascular: Yes: Pulse Irregular Respiratory: Yes: Regular, CTA Bilaterally Gastrointestinal: Yes: Normal Bowel Sounds, Soft Musculoskeletal: Yes: WNL Neurological: Yes: Alert Psychiatric: Yes: Alert Labs: CBC, BMP 02/18/18 19:00 02/17/18 06:30 INR, PTT INR 1.21 (0.83-1.09) H 02/19/18 06:10 Assessment/Plan roblem List - Problems (1) Upper GI bleed Code(s): K92.2 - GASTROINTESTINAL HEMORRHAGE, UNSPECIFIED (2) Diabetes Code(s): E11.9 - TYPE 2 DIABETES MELLITUS WITHOUT COMPLICATIONS Qualifiers: (3) HTN (hypertension) Code(s): I10 - ESSENTIAL (PRIMARY) HYPERTENSION Qualifiers: (4) Afib Code(s): I48.91 - UNSPECIFIED ATRIAL FIBRILLATION Qualifiers: (5) Vertigo Code(s): R42 - DIZZINESS AND GIDDINESS plan no abx at the moment continue steroids rest as per the team and ent
[2018-02-19] MEDS: WARFARIN NA 3 MG TABLET PO SCH (17:40)
[2018-02-20] MEDS: MECLIZINE HCL 25 MG TABLET (FP) PO SCH ×2 (06:52→12:31)
[2018-02-20] MEDS: PSEUDOEPHEDRINE HCL 30 MG TABLET PO SCH ×3 (06:52→17:53)
[2018-02-20] MEDS: metFORMIN HCL 500 MG TABLET (FP) PO SCH ×2 (06:52→17:52)
[2018-02-20 07:53] LABS: INR 1.44 (0.83-1.09); PROTHROMBIN TIME (PATIENT) 17.1 SEC (9.7-13.0)
[2018-02-20] MEDS: predniSONE 20 MG TABLET (UD) PO SCH (09:03)
[2018-02-20] MEDS: PANTOPRAZOLE 20 MG TABLET (FP) PO SCH (09:03)
--- NOTE | 2018-02-20 11:45 | PN ---
Progress Note, Physician - Current Medication List Current Medications: Active Medications Acetaminophen (Tylenol -) 650 mg PO Q6H PRN PRN Reason: PAIN Meclizine HCl (Antivert -) 25 mg PO Q6HPO [facility] Last Admin: 02/20/18 06:52 Dose: 25 mg Metformin HCl (Glucophage -) 1,000 mg PO BIDAC [facility] Last Admin: 02/20/18 06:52 Dose: 1,000 mg Ondansetron HCl (Zofran Injection) 4 mg IVPUSH Q4H PRN PRN Reason: NAUSEA AND/OR VOMITING Pantoprazole Sodium (Protonix -) 20 mg PO DAILY [facility] Last Admin: 02/20/18 09:03 Dose: 20 mg Prednisone (Deltasone -) 60 mg PO DAILY [facility] Last Admin: 02/20/18 09:03 Dose: 60 mg Pseudoephedrine HCl (Sudafed -) 30 mg PO Q6HPO [facility] Last Admin: 02/20/18 06:52 Dose: 30 mg Warfarin Sodium (Coumadin -) 6 mg PO DAILY@1800 [facility] Last Admin: 02/19/18 17:40 Dose: 6 mg - Objective Vital Signs: Vital Signs Temperature 97.4 F L 02/20/18 09:09 Pulse Rate 128 H 02/20/18 09:09 Respiratory Rate 20 02/20/18 09:09 Blood Pressure 111/58 L 02/20/18 09:09 O2 Sat by Pulse Oximetry (%) 98 02/20/18 10:00 Labs: CBC, BMP 02/18/18 19:00 02/17/18 06:30 INR, PTT INR 1.44 (0.83-1.09) H 02/20/18 06:00 Problem List - Problems (1) Upper GI bleed Code(s): K92.2 - GASTROINTESTINAL HEMORRHAGE, UNSPECIFIED (2) Diabetes Code(s): E11.9 - TYPE 2 DIABETES MELLITUS WITHOUT COMPLICATIONS Qualifiers: (3) HTN (hypertension) Code(s): I10 - ESSENTIAL (PRIMARY) HYPERTENSION Qualifiers: (4) Afib Code(s): I48.91 - UNSPECIFIED ATRIAL FIBRILLATION Qualifiers: (5) Vertigo Code(s): R42 - DIZZINESS AND GIDDINESS
--- NOTE | 2018-02-20 12:18 | EKG ---
Test Reason : Blood Pressure : / mmHG Vent. Rate : 102 BPM Atrial Rate : 097 BPM P-R Int : 000 ms QRS Dur : 086 ms QT Int : 304 ms P-R-T Axes : 000 006 025 degrees QTc Int : 396 ms ATRIAL FIBRILLATION WITH RAPID VENTRICULAR RESPONSE ABNORMAL ECG WHEN COMPARED WITH ECG OF 16-FEB-2018 11:17, Confirmed by Eusebio Schulz ([id number]) on 02/20/2018 12:17:32 PM Referred By: Shanda MOON Confirmed By:Eusebio Schulz
[2018-02-20] MEDS ORDERED: PT OWN MED DRAWER 7, Y5N ONE ×2 (12:29→17:58)
--- NOTE | 2018-02-20 13:28 | PN ---
Progress Note, Physician History of Present Illness: patient with doing well c/o of pain in the rt ear all cx reports noted - Current Medication List Current Medications: Active Medications Acetaminophen (Tylenol -) 650 mg PO Q6H PRN PRN Reason: PAIN Meclizine HCl (Antivert -) 25 mg PO Q6HPO [facility] Last Admin: 02/20/18 12:31 Dose: 25 mg Metformin HCl (Glucophage -) 1,000 mg PO BIDAC [facility] Last Admin: 02/20/18 06:52 Dose: 1,000 mg Ondansetron HCl (Zofran Injection) 4 mg IVPUSH Q4H PRN PRN Reason: NAUSEA AND/OR VOMITING Pantoprazole Sodium (Protonix -) 20 mg PO DAILY [facility] Last Admin: 02/20/18 09:03 Dose: 20 mg Prednisone (Deltasone -) 60 mg PO DAILY [facility] Last Admin: 02/20/18 09:03 Dose: 60 mg Pseudoephedrine HCl (Sudafed -) 30 mg PO Q6HPO [facility] Last Admin: 02/20/18 12:32 Dose: 30 mg Warfarin Sodium (Coumadin -) 6 mg PO DAILY@1800 [facility] Last Admin: 02/19/18 17:40 Dose: 6 mg - Objective Vital Signs: Vital Signs Temperature 98.6 F 02/20/18 13:00 Pulse Rate 115 H 02/20/18 13:00 Respiratory Rate 20 02/20/18 13:00 Blood Pressure 101/68 02/20/18 13:00 O2 Sat by Pulse Oximetry (%) 98 02/20/18 10:00 Constitutional: Yes: No Distress, Calm Cardiovascular: Yes: S1, S2 Respiratory: Yes: Regular, CTA Bilaterally Gastrointestinal: Yes: Normal Bowel Sounds, Soft Musculoskeletal: Yes: WNL Extremities: Yes: Other Neurological: Yes: Alert, Oriented Psychiatric: Yes: Alert, Oriented Labs: CBC, BMP 02/18/18 19:00 02/17/18 06:30 INR, PTT INR 1.44 (0.83-1.09) H 02/20/18 06:00 Assessment/Plan problem List - Problems (1) Upper GI bleed Code(s): K92.2 - GASTROINTESTINAL HEMORRHAGE, UNSPECIFIED (2) Diabetes Code(s): E11.9 - TYPE 2 DIABETES MELLITUS WITHOUT COMPLICATIONS Qualifiers: (3) HTN (hypertension) Code(s): I10 - ESSENTIAL (PRIMARY) HYPERTENSION Qualifiers: (4) Afib Code(s): I48.91 - UNSPECIFIED ATRIAL FIBRILLATION Qualifiers: (5) Vertigo Code(s): R42 - DIZZINESS AND GIDDINESS plan no abx at the moment continue steroids rest as per the team and ent
[2018-02-20] MEDS ORDERED: MECLIZINE HCL 25 MG TABLET (FP) PO PRN (16:54)
[2018-02-20] MEDS: WARFARIN NA 3 MG TABLET PO SCH (17:53)
[2018-02-21] MEDS: PSEUDOEPHEDRINE HCL 30 MG TABLET PO SCH ×5 (01:03→23:33)
[2018-02-21] MEDS: metFORMIN HCL 500 MG TABLET (FP) PO SCH ×2 (06:17→17:34)
[2018-02-21 07:09] LABS: INR 1.78 (0.83-1.09); PROTHROMBIN TIME (PATIENT) 21.1 SEC (9.7-13.0)
[2018-02-21] MEDS: PANTOPRAZOLE 20 MG TABLET (FP) PO SCH (10:19)
[2018-02-21] MEDS: predniSONE 20 MG TABLET (UD) PO SCH (10:19)
--- NOTE | 2018-02-21 11:26 | PN ---
Progress Note, Physician History of Present Illness: still not able to hear - Current Medication List Current Medications: Active Medications Acetaminophen (Tylenol -) 650 mg PO Q6H PRN PRN Reason: PAIN Meclizine HCl (Antivert -) 25 mg PO Q6H PRN PRN Reason: vertigo Metformin HCl (Glucophage -) 1,000 mg PO BIDAC [facility] Last Admin: 02/21/18 06:17 Dose: 1,000 mg Ondansetron HCl (Zofran Injection) 4 mg IVPUSH Q4H PRN PRN Reason: NAUSEA AND/OR VOMITING Pantoprazole Sodium (Protonix -) 20 mg PO DAILY [facility] Last Admin: 02/21/18 10:19 Dose: 20 mg Prednisone (Deltasone -) 60 mg PO DAILY [facility] Last Admin: 02/21/18 10:19 Dose: 60 mg Pseudoephedrine HCl (Sudafed -) 30 mg PO Q6HPO [facility] Last Admin: 02/21/18 06:16 Dose: 30 mg Warfarin Sodium (Coumadin -) 6 mg PO DAILY@1800 [facility] Last Admin: 02/20/18 17:53 Dose: 6 mg - Objective Vital Signs: Vital Signs Temperature 97.9 F 02/21/18 06:23 Pulse Rate 66 02/21/18 06:23 Respiratory Rate 20 02/21/18 06:23 Blood Pressure 103/76 02/21/18 06:23 O2 Sat by Pulse Oximetry (%) 99 02/20/18 21:00 Constitutional: Yes: No Distress, Calm Cardiovascular: Yes: Pulse Irregular Respiratory: Yes: Regular, CTA Bilaterally Gastrointestinal: Yes: Normal Bowel Sounds, Soft Musculoskeletal: Yes: WNL Extremities: Yes: Other Labs: CBC, BMP 02/18/18 19:00 02/17/18 06:30 INR, PTT INR 1.78 (0.83-1.09) H 02/21/18 06:23 Assessment/Plan problem List - Problems (1) Upper GI bleed Code(s): K92.2 - GASTROINTESTINAL HEMORRHAGE, UNSPECIFIED (2) Diabetes Code(s): E11.9 - TYPE 2 DIABETES MELLITUS WITHOUT COMPLICATIONS Qualifiers: (3) HTN (hypertension) Code(s): I10 - ESSENTIAL (PRIMARY) HYPERTENSION Qualifiers: (4) Afib Code(s): I48.91 - UNSPECIFIED ATRIAL FIBRILLATION Qualifiers: (5) Vertigo Code(s): R42 - DIZZINESS AND GIDDINESS plan continue current mgmt ent on case rest as per the team
--- NOTE | 2018-02-21 13:07 | CON.CARD ---
Consult Consult Specialty:: Cardiology Referred by:: Shabbir Roca MD Reason for Consultation:: Afib - History of Present Illness Chief Complaint: Hematemesis History of Present Illness: Patient is a 52 year old male with underlying history of AF (permanent) on Coumadin, DM and HTN admitted 02-16-18 with emesis of coffee grounds, vertigo, nausea and emesis with right tinnitus and hearing loss. EGD showed gastritis. He denies chest pain, dyspnea, palpitations, orthopnea, PND or LE edema. 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 Home Medications - Allergies Allergies/Adverse Reactions: Allergies Allergy/AdvReac Type Severity Reaction Status Date / Time No Known Allergies Allergy Verified 02/16/18 10:21 - Home Medications Home Medications: Ambulatory Orders Metformin HCl [Glucophage] 1,000 mg PO BID 01/02/18 Warfarin Sodium [Coumadin] 6 mg PO HS 01/02/18 Review of Systems - Review of Systems HENT: reports: Hearing Loss, Ringing in Ears Gastrointestinal: reports: Vomiting Vital Signs: Vital Signs Temperature 97.9 F 02/21/18 06:23 Pulse Rate 66 02/21/18 06:23 Respiratory Rate 20 02/21/18 06:23 Blood Pressure 103/76 02/21/18 06:23 O2 Sat by Pulse Oximetry (%) 99 02/20/18 21:00 Constitutional: Yes: No Distress, Calm Neck: Yes: Supple Respiratory: Yes: Regular, CTA Bilaterally Gastrointestinal: Yes: Normal Bowel Sounds, Soft Cardiovascular: Yes: Tachycardia, Pulse Irregular JVD: No Carotid Bruit: No Heart Sounds: Yes: S1, S2 Edema: No - Other Data Labs, Other Data: CBC, BMP 02/18/18 19:00 02/17/18 06:30 INR, PTT INR 1.78 (0.83-1.09) H 02/21/18 06:23 Afib @ 102 Imaging - Results Chest X-ray: Report Reviewed (NAD) Cat Scan: Report Reviewed (No acute stroke or bleed) Problem List - Problems (1) Labile hypertension Code(s): R09.89 - OTH SYMPTOMS AND SIGNS INVOLVING THE CIRC AND RESP SYSTEMS (2) Chronic anticoagulation Code(s): Z79.01 - SHELTER (CURRENT) USE OF ANTICOAGULANTS (3) Diabetes Code(s): E11.9 - TYPE 2 DIABETES MELLITUS WITHOUT COMPLICATIONS Qualifiers: Diabetes mellitus type: type 2 (4) Afib Code(s): I48.91 - UNSPECIFIED ATRIAL FIBRILLATION Qualifiers: Atrial fibrillation type: persistent Qualified Code(s): I48.1 - Persistent atrial fibrillation (5) Meniere's disease Code(s): H81.09 - MENIERE'S DISEASE, UNSPECIFIED EAR Qualifiers: Laterality: right Qualified Code(s): H81.01 - Meniere's disease, right ear Assessment/Plan 11/15/2017 Echocardiography revealed normal LV size and function, normal LA size , mild TR 1. Meniere's disease with right ear tinnitus, hearing loss and vertigo 2. Gastritis 3. Type 2 DM 4. Permanent AF with RVR on Coumadin with subtherapeutic INR 5. History of diabetic foot infection, osteomyelitis of left submetatarsal history of toe amputations PLAN: 1. Continue Coumadin as per INR with close monitoring of CBC 2. Rechallenge metoprolol XL 12.5 qd with uptitration as tolerated 3. May consider cardioversion provided patient is adequately A/C for 3-4 weeks specially in view of normal LV size and function and normal LA size 4. Oral steroids course with GI protection recommended by ENT 5. Thank you for consultative opportunity
[2018-02-21] MEDS ORDERED: PT OWN MED DRAWER 7, Y5N ONE (13:17)
--- NOTE | 2018-02-21 17:10 | PATH ---
Surgical Pathology Report Patient Name: REBECCA BRADLEY [facility]. Rec. #: [id number] /Age/Gender: 1965 (Age: 52) / M Account: [id number] Location: [address] [place] [address]/[facility] Taken: 02/18/2018 Received: 02/18/2018 Reported: 02/21/2018 Physicians: Nhi Diaan M.D. Specimen(s) Received BX STOMACH Clinical History GI bleeding Postoperative diagnosis: Gastritis Final Diagnosis STOMACH, CARDIA, BIOPSY: GASTRIC CARDIAC TYPE MUCOSA WITH MILD CHRONIC GASTRITIS. IMMUNOHISTOCHEMICAL STAIN FOR H. PYLORI IS NEGATIVE. Electronically Signed Claudia Montero M.D. Gross Description Received in formalin, labeled "biopsy cardia of stomach" are 6 lou, irregular portions of soft tissue ranging from 0.2-0.3 cm. in greatest dimension. The specimens are submitted in toto in one cassette. 02/18/2018
[2018-02-21] MEDS ORDERED: predniSONE 20 MG TABLET (UD) PO SCH ×2 (17:26→17:45)
--- NOTE | 2018-02-21 17:27 | PN ---
Progress Note, Physician History of Present Illness: no pain but hearing is less R ear - Current Medication List Current Medications: Active Medications Acetaminophen (Tylenol -) 650 mg PO Q6H PRN PRN Reason: PAIN Meclizine HCl (Antivert -) 25 mg PO Q6H PRN PRN Reason: vertigo Metformin HCl (Glucophage -) 1,000 mg PO BIDAC [facility] Last Admin: 02/21/18 06:17 Dose: 1,000 mg Ondansetron HCl (Zofran Injection) 4 mg IVPUSH Q4H PRN PRN Reason: NAUSEA AND/OR VOMITING Pantoprazole Sodium (Protonix -) 20 mg PO DAILY [facility] Last Admin: 02/21/18 10:19 Dose: 20 mg Prednisone (Deltasone -) 60 mg PO DAILY [facility] Last Admin: 02/21/18 10:19 Dose: 60 mg Pseudoephedrine HCl (Sudafed -) 30 mg PO Q6HPO [facility] Last Admin: 02/21/18 13:20 Dose: 30 mg Warfarin Sodium (Coumadin -) 6 mg PO DAILY@1800 [facility] Last Admin: 02/20/18 17:53 Dose: 6 mg - Objective Vital Signs: Vital Signs Temperature 98.1 F 02/21/18 14:44 Pulse Rate 113 H 02/21/18 14:44 Respiratory Rate 18 02/21/18 14:44 Blood Pressure 105/64 02/21/18 14:44 O2 Sat by Pulse Oximetry (%) 99 02/20/18 21:00 HENT: Yes: Atraumatic Neck: Yes: Supple Cardiovascular: Yes: Regular Rate and Rhythm Respiratory: Yes: CTA Bilaterally Gastrointestinal: Yes: Normal Bowel Sounds Extremities: Yes: WNL Neurological: Yes: Alert, Oriented Labs: CBC, BMP 02/18/18 19:00 02/17/18 06:30 INR, PTT INR 1.78 (0.83-1.09) H 02/21/18 06:23 Problem List - Problems (1) Upper GI bleed Code(s): K92.2 - GASTROINTESTINAL HEMORRHAGE, UNSPECIFIED (2) Diabetes Code(s): E11.9 - TYPE 2 DIABETES MELLITUS WITHOUT COMPLICATIONS Qualifiers: (3) HTN (hypertension) Code(s): I10 - ESSENTIAL (PRIMARY) HYPERTENSION Qualifiers: (4) Afib Code(s): I48.91 - UNSPECIFIED ATRIAL FIBRILLATION Qualifiers: (5) Vertigo Code(s): R42 - DIZZINESS AND GIDDINESS
[2018-02-21] MEDS: WARFARIN NA 3 MG TABLET PO SCH (17:35)
[2018-02-21] MEDS: metoPROLOL SUCCINATE 25 MG TAB.SR.24H (FP) PO SCH (18:19)
[2018-02-22] MEDS: PSEUDOEPHEDRINE HCL 30 MG TABLET PO SCH ×3 (06:37→17:47)
[2018-02-22] MEDS: metFORMIN HCL 500 MG TABLET (FP) PO SCH ×2 (06:37→17:46)
[2018-02-22 07:17] LABS: BASO % 0.2 % (0-2.0); HEMATOCRIT 40.5 % (35.4-49); HEMOGLOBIN 13.4 GM/dL (11.7-16.9); LYMPH % 13.7 % (8-40); MCH 29.5 pg (25.7-33.7); MCHC 33.2 g/dl (32.0-35.9); MEAN CELL VOLUME 88.8 fl (80-96); MEAN PLT VOLUME 10.2 fl (7.5-11.1); MONO % 5.7 % (3.8-10.2); NEUT % 80.4 % (42.8-82.8); PLATELET COUNT 180 K/MM3 (134-434); RBC 4.56 M/mm3 (4.00-5.60); RDW 14.8 % (11.9-15.9); WHITE BLOOD COUNT 9.5 K/mm3 (4.0-10.0)
[2018-02-22 07:34] LABS: INR 2.54 (0.83-1.09); PROTHROMBIN TIME (PATIENT) 30.2 SEC (9.7-13.0)
[2018-02-22 07:41] LABS: ALBUMIN 3.8 g/dl (3.4-5.0); ALK PHOS 116 U/L (45-117); ANION GAP 13 MMOL/L (8-16); BILIRUBIN,TOTAL 0.4 mg/dL (0.2-1); BLOOD UREA NITROGEN 27 mg/dL (7-18); CHLORIDE 99 mmol/L (98-107); CO2 25 mmol/L (21-32); GLUCOSE,RANDOM 236 mg/dL (74-106); POTASSIUM 4.1 mmol/L (3.5-5.1); SGOT/AST 5 U/L (15-37); SGPT/ALT 22 U/L (13-61); SODIUM 137 mmol/L (136-145); TOT PROT 7.4 g/dl (6.4-8.2)
[2018-02-22] MEDS: metoPROLOL SUCCINATE 25 MG TAB.SR.24H (FP) PO SCH (09:19)
[2018-02-22] MEDS: PANTOPRAZOLE 20 MG TABLET (FP) PO SCH (09:19)
[2018-02-22] MEDS ORDERED: PT OWN MED DRAWER 7, Y5N ONE ×3 (12:18→17:42)
--- NOTE | 2018-02-22 12:59 | PN ---
Progress Note, Physician History of Present Illness: still with hearing loss and pain patient otherwise stable - Current Medication List Current Medications: Active Medications Acetaminophen (Tylenol -) 650 mg PO Q6H PRN PRN Reason: PAIN Metformin HCl (Glucophage -) 1,000 mg PO BIDAC [facility] Last Admin: 02/22/18 06:37 Dose: 1,000 mg Metoprolol Succinate (Toprol Xl -) 12.5 mg PO DAILY [facility] Last Admin: 02/22/18 09:19 Dose: 12.5 mg Ondansetron HCl (Zofran Injection) 4 mg IVPUSH Q4H PRN PRN Reason: NAUSEA AND/OR VOMITING Pantoprazole Sodium (Protonix -) 20 mg PO DAILY [facility] Last Admin: 02/22/18 09:19 Dose: 20 mg Prednisone (Deltasone -) 60 mg PO DAILY [facility] Last Admin: 02/22/18 09:18 Dose: 60 mg Pseudoephedrine HCl (Sudafed -) 30 mg PO Q6HPO [facility] Last Admin: 02/22/18 12:20 Dose: 30 mg Warfarin Sodium (Coumadin -) 6 mg PO DAILY@1800 [facility] Last Admin: 02/21/18 17:35 Dose: 6 mg - Objective Vital Signs: Vital Signs Temperature 98.2 F 02/22/18 10:00 Pulse Rate 100 H 02/22/18 10:00 Respiratory Rate 18 02/22/18 10:00 Blood Pressure 106/65 02/22/18 10:00 O2 Sat by Pulse Oximetry (%) 100 02/22/18 09:00 Constitutional: Yes: Calm, Mild Distress HENT: Yes: Other (deafness rt ear) Neck: Yes: Supple, Trachea Midline Cardiovascular: Yes: Pulse Irregular Respiratory: Yes: Regular, CTA Bilaterally Gastrointestinal: Yes: Normal Bowel Sounds, Soft Musculoskeletal: Yes: WNL Extremities: Yes: WNL Neurological: Yes: Alert, Oriented Psychiatric: Yes: Alert Labs: CBC, BMP 02/22/18 06:00 02/22/18 06:00 INR, PTT INR 2.54 (0.83-1.09) H 02/22/18 06:00 Assessment/Plan problem List - Problems (1) Upper GI bleed Code(s): K92.2 - GASTROINTESTINAL HEMORRHAGE, UNSPECIFIED (2) Diabetes Code(s): E11.9 - TYPE 2 DIABETES MELLITUS WITHOUT COMPLICATIONS Qualifiers: (3) HTN (hypertension) Code(s): I10 - ESSENTIAL (PRIMARY) HYPERTENSION Qualifiers: (4) Afib Code(s): I48.91 - UNSPECIFIED ATRIAL FIBRILLATION Qualifiers: (5) Vertigo Code(s): R42 - DIZZINESS AND GIDDINESS 6 deafness rt ear plan continue as per ent primary rest as per the primary team patient otherwise doing well follow with ent
[2018-02-22 14:49] VITALS: BP 109/72; PULSE 103; TEMP 98.1
[2018-02-22 16:16] VITALS: BMI 23.1
--- NOTE | 2018-02-22 16:19 | DS ---
Physical Examination Vital Signs: Vital Signs Temperature 98.1 F 02/22/18 14:47 Pulse Rate 103 H 02/22/18 14:47 Respiratory Rate 20 02/22/18 14:47 Blood Pressure 109/72 02/22/18 14:47 O2 Sat by Pulse Oximetry (%) 100 02/22/18 09:00 Labs: CBC, BMP 02/22/18 06:00 02/22/18 06:00 Discharge Summary Reason For Visit: UPPER GASTROINTESTINAL HEMORRHAGE Current Active Problems Hearing loss in right ear (Acute) Labile hypertension (Acute) Meniere's disease (Acute) Tinnitus of right ear (Acute) Upper GI bleed (Acute) Vertigo (Acute) - Instructions Diet, Activity, Other Instructions: see dr Bee ent next week for hearing test Referrals: Merlin Chen MD [Staff Physician] - Brett Bee MD [Staff Physician] - - Home Medications Comprehensive Discharge Medication List: Ambulatory Orders Metformin HCl [Glucophage] 1,000 mg PO BID 01/02/18 Warfarin Sodium [Coumadin] 6 mg PO HS 01/02/18 Metoprolol Succinate [Toprol XL -] 12.5 mg PO DAILY #30 tab.sr.24h 02/22/18 Pantoprazole Sodium [Protonix -] 20 mg PO DAILY #30 tablet.ec 02/22/18 Prednisone 10 mg PO ASDIR #60 tablet 02/22/18 or home
[2018-02-22] MEDS ORDERED: WARFARIN NA 3 MG TABLET PO ONE (17:30)
== END 2018-02-22 18:15 | disposition home or self-care (01) | DRG 253 ==
LOC: JER 10:16 → JERBED 14:24 → UNDOADMOB 14:24 → INTOOBSV 14:24 → J5S 17:50 → JERBED 17:50 → OBSVTOIN 19:29 → J5S 19:29 → INTOOBSV 19:29 → OBSVTOIN 02-18 18:39
PROVIDERS: ADMIT Internal Medicine; ATTEND Internal Medicine
PROC: 0DB68ZX Excision of Stomach, Via Natural or Artificial Opening Endoscopic, Diagnostic (ICD-10-PCS; principal; 2018-02-17 13:30)
DX: K92.2 Gastrointestinal hemorrhage, unspecified (principal); I10 Essential (primary) hypertension; H91.91 Unspecified hearing loss, right ear; E11.9 Type 2 diabetes mellitus without complications; R42 Dizziness and giddiness; R09.89 Other specified symptoms and signs involving the circulatory and respiratory systems; H81.09 Meniere's disease, unspecified ear; H93.11 Tinnitus, right ear; K29.70 Gastritis, unspecified, without bleeding; I07.9 Rheumatic tricuspid valve disease, unspecified; I48.2 Chronic atrial fibrillation; Z89.422 Acquired absence of other left toe(s); Z79.01 Long term (current) use of anticoagulants
CPT/HCPCS: 36415; 36430; 70450-TC; 70553-TC; 71045-TC-FY; 80048; 80053; 81003; 82009; 82550; 82553; 82803; 82962; 83605; 83690; 83735; 84100; 84484; 85025; 85027; 85610; 85730; 86850; 86900; 86901; 87040; 87086; 88305-TC; 93005; 93010; 99284-25; G0378; J7030; P9017

== ENCOUNTER 2018-04-11 09:10 | Emergency (ER) | payer OTHER ==
[2018-04-11 09:25] VITALS: BP 105/65; PULSE 79; TEMP 97.6; BMI 32.2
[2018-04-11] MEDS ORDERED: CYCLOBENZAPRINE HCL 10 MG TABLET (FP) PO ONE (10:12)
[2018-04-11] MEDS ORDERED: KETOROLAC TROMETHAMINE 60 MG/2 ML VIAL IM ONE (10:12)
--- NOTE | 2018-04-11 10:19 | PDOC ---
History of Present Illness - General Chief Complaint: Pain, Acute Stated Complaint: LEG PAIN Time Seen by Provider: 04/11/18 10:01 History Source: Patient Exam Limitations: Clinical Condition - History of Present Illness Initial Comments: 04/11/18 10:14 Patient with hypertension, diabetes and A-Fib on Coumadin present with complaint of severe pain to left thigh area or the way down to left lower leg for 4 days. Patient also reported pain to left calf muscle. Patient reported taking Tylenol for pain but does not help with pain. Patient denies any other symptoms. Denies shortness of breath, chest pain, leg numbness or tingling sensation or cold sensation to light. Patient denies any trauma or injury to leg. 04/11/18 10:20 Timing/Duration: other (4 days) Past History - Past Medical History Allergies/Adverse Reactions: Allergies Allergy/AdvReac Type Severity Reaction Status Date / Time No Known Allergies Allergy Verified 04/11/18 10:06 Home Medications: Ambulatory Orders Metformin HCl [Glucophage] 1,000 mg PO BID 01/02/18 Warfarin Sodium [Coumadin] 6 mg PO HS 01/02/18 Metoprolol Succinate [Toprol XL -] 12.5 mg PO DAILY #30 tab.sr.24h 02/22/18 Gabapentin 300 mg PO BID PRN #20 capsule 04/11/18 Methocarbamol [Robaxin -] 500 mg PO TID #21 tablet 04/11/18 Anemia: No Asthma: No Cancer: No Cardiac Disorders: Yes (Afib) CVA: No COPD: No DVT: No Dementia: No Diabetes: Yes Dialysis: No GI Disorders: No Disorders: No HTN: Yes Hypercholesterolemia: No Kidney Stones: No Liver Disease: No Psychiatric Problems: No Seizures: No Thyroid Disease: No Lung CA: No - Surgical History Abdominal Surgery: No Appendectomy: No Cardiac Surgery: No Cholecystectomy: No Lung Surgery: No Neurologic Surgery: No Orthopedic Surgery: Yes - Immunization History Immunization Up to Date: No - Suicide/Smoking/Psychosocial Hx Smoking History: Never smoked Have you smoked in the past 12 months: No Number of Cigarettes Smoked Daily: 0 Cigars Per Day: 0 Information on smoking cessation initiated: No Hx Alcohol Use: No Drug/Substance Use Hx: No Substance Use Type: None Hx Substance Use Treatment: No Review of Systems - Review of Systems Able to Perform ROS?: Yes Is the patient limited [place] proficient: No Constitutional: No: Weakness HEENTM: No: Blurred Vision, Recent change in vision Respiratory: No: Symptoms reported Cardiac (ROS): No: Symptoms Reported, See HPI, Chest Pain, Edema, Irregular Heart Rate, Lightheadedness, Palpitations, Syncope, Chest Tightness, Other ABD/GI: No: Nausea, Vomiting Musculoskeletal: Yes: See HPI, Muscle Pain (left posterior thigh down to left calf). No: Muscle Weakness Integumentary: No: Change in Color, Erythema, Flushing, Lumps, Rash Neurological: No: Numbness, Paresthesia, Tingling, Weakness All Other Systems: Reviewed and Negative *Physical Exam - Vital Signs Last Vital Signs Temp Pulse Resp BP Pulse Ox 97.6 F 79 16 105/65 100 04/11/18 09:22 04/11/18 09:22 04/11/18 09:22 04/11/18 09:22 04/11/18 09:22 - Physical Exam Comments: 04/11/18 10:22 GENERAL: Well developed, well nourished. Awake and alert. No acute distress. CARDIOVASCULAR: Regular rate and rhythm. No murmurs, rubs, or gallops. PULMONARY: No evidence of respiratory distress. Lungs clear to auscultation bilaterally. No wheezing, rales or rhonchi. ABDOMINAL: Soft. Non-tender. Non-distended. No rebound or guarding. No organomegaly. Normoactive bowel sounds MUSCULOSKELETAL : moderate tenderness over posterior thigh muscle with mild tenderness to left calf. no increased warmth to left LE. no erythema to skin of LE. No bony deformities EXTREMITIES: No cyanosis. No clubbing. No edema.mild calf tenderness. SKIN: Warm and dry. Normal capillary refill. No rashes. No jaundice. NEUROLOGICAL: Alert, awake, appropriate. No motor deficits in the lower extremities. Gait is normal without ataxia. PSYCHIATRIC: Cooperative. Good eye contact. Appropriate mood and affect. General Appearance: Yes: Nourished, Appropriately Dressed, Apparent Distress, Moderate Distress Moderate Sedation - Procedure Monitoring Vital Signs: Procedure Monitoring Vital Signs Temperature 97.6 F 04/11/18 09:22 Pulse Rate 79 04/11/18 09:22 Respiratory Rate 16 04/11/18 09:22 Blood Pressure 105/65 04/11/18 09:22 O2 Sat by Pulse Oximetry (%) 100 04/11/18 09:22 ED Treatment Course - RADIOLOGY Radiology Studies Ordered: Category Date Time Status DUPLEX VASCUL US-1 LEG [US] Stat Ultrasound 04/11/18 10:12 Ordered Medical Decision Making - Medical Decision Making 04/11/18 10:24 Patient with hypertension, diabetes and A-Fib on Coumadin present with complaint of severe pain to left thigh area or the way down to left lower leg for 4 days. Patient also reported pain to left calf muscle Clinical exam significant for moderate tenderness over posterior thigh muscle with mild tenderness to left calf. no increased warmth to left LE. no erythema to skin of LE. Cyclobenzaprine 5 mg by mouth and Percocet 1 tablet given for pain. Duplex of left lower extremity ordered to rule out DVT. Symptoms likely muscle spasm. Patient be discharged home on muscle relaxer if negative duplex ultrasound. 04/11/18 10:24 04/11/18 12:04 Duplex of left extremity shows no acute DVT. Patient report moderate improvement pain with Percocet and Flexeril. Patient is stable for discharge on gabapentin and Robaxin with orthopedics follow-up. *DC/Admit/Observation/Transfer Diagnosis at time of Disposition: Muscle cramp, Acute pain of left thigh - Discharge Dispostion Disposition: HOME Condition at time of disposition: Stable Decision to Admit order: No - Prescriptions Prescriptions: Gabapentin 300 mg PO BID PRN #20 capsule PRN Reason: leg pain Methocarbamol [Robaxin -] 500 mg PO TID #21 tablet - Referrals Referrals: Maxi Stout MD [Staff Physician] - - Patient Instructions Printed Discharge Instructions: DI for Nocturnal Leg Cramps Additional Instructions: Your ultrasound was negative. Take medication as prescribed. Follow-up referred orthopedics next 2-3 days for follow-up assessment. - Post Discharge Activity
[2018-04-11] MEDS ORDERED: CYCLOBENZAPRINE HCL 10 MG TABLET (FP) ONE (10:22)
== END 2018-04-11 12:09 | disposition home or self-care (01) ==
LOC: JERFT 09:10
DX: M79.652 Pain in left thigh (principal); R25.2 Cramp and spasm; I10 Essential (primary) hypertension; E11.9 Type 2 diabetes mellitus without complications; I48.91 Unspecified atrial fibrillation; Z79.01 Long term (current) use of anticoagulants
CPT/HCPCS: 93971-TC; 99281-25